=== PATIENT | male | born 1945 | race Caucasian/White ===

== ENCOUNTER 2016-06-05 20:11 | Inpatient (IN) | payer OTHER, MEDICARE ==
[~2016-06-05] VITALS: Ht 172.7 cm; Wt 79.4 kg
[~2016-06-05 20:11] MED LIST: AMOX-CLAV 875-1 EACH PO; ASPIRIN EC81 M1 PO; ATORVASTATIN CA40 M1 PO; FOLIC ACID1 M1 PO; GABAPENTIN600 M1 PO; LIPITOR80 M1 PO; MORPHINE SULFAT15 M3 PO; ONE DAILY MULT1 EAC2 PO; OXYCODONE HCL10 M2 PO; PLAQUENIL200 M1 PO; PREDNISONE10 M2 PO; PROTONIX40 M3 PO; VITAMIN B-1100 MG PO; ZOLOFT100 M1 PO
--- NOTE | 2016-06-05 20:19 | ED DYSPNEA/ASTHMA COMPLAINT ---
History of Present Illness General Chief Complaint: Dyspnea (COPD, CHF, Other) Stated Complaint: BIBA, SOB Source: patient Exam Limitations: no limitations Vital Signs & Intake/Output Vital Signs & Intake/Output Vital Signs Date Time Temp Pulse Resp B/P Pulse O2 O2 Flow FiO2 Ox Delivery Rate 06/05 2143 98.9 85 18 142/70 97 Room Air 06/05 2142 84 142/70 06/05 2050 100 Nasal 2.0L Cannula 06/05 2033 98.4 71 18 148/71 100 Nasal 2.0L Cannula Allergies Coded Allergies: No Known Allergies (01/27/16) Reconcile Medications Aspirin (Ecotrin*) 81 MG TABLET.DR 1 TAB PO DAILY HEART/BLOOD (Reported) Atorvastatin Calcium (Lipitor) 80 MG TABLET 1 TAB PO DAILY CHOLESTEROL ( Reported) Folic Acid 1 MG TABLET 1 MG PO DAILY SUPPLEMENT Gabapentin 600 MG TABLET 1 TAB PO 4 TIMES/DAY PAIN CONTROL (Reported) Hydroxychlorquine (Plaquenil) 200 MG TABLET 1 TAB PO BID ARTHRITIS (Reported) Morphine Sulfate (Morphine Sulfate ER) 15 MG TABLET.ER 1 TAB PO TID PAIN ( Reported) Multivitamin (One Daily Multivitamin) 1 EACH TABLET 1 TAB PO DAILY SUPPLEMENT Oxycodone HCl 10 MG TABLET 1 TAB PO 4 TIMES/DAY PAIN (Reported) Pantoprazole Sodium (Protonix) 40 MG TABLET.DR 1 TAB PO DAILY GI (Reported) Prednisone 10 MG TABLET 1 TAB PO DAILY STEROID (Reported) Sertraline HCl (Zoloft) 100 MG TABLET 1 TAB PO DAILY MENTAL HEALTH (Reported) Triage Note: PT BIBA FROM WALK IN C/O INCREASED SOB AND BILAT 2+ PITTING EDEMA. PER EMS 76% ON RA. PT PUT ON 2L O2 AND SATTING 100% HERE [place]ONA ARRIVAL. HX: TRIPAL BYPASS. Triage Nurses Notes Reviewed? yes Onset: Gradual Duration: day(s): Timing: recent history Severity: moderate Activities at Onset: none Prior Episodes/Possible Cause: no prior episodes Modifying Factors: Improves With: rest. Worsens With: movement. Associated Symptoms: edema, weakness HPI: 70-year-old gentleman history of coronary artery disease status post CABG 10 years ago, presents with one-week history of progressive dyspnea. He states that when he moves minimally he becomes short of breath. He notes that he feels with minimal exertion. "I walk and I can't catch my breath." Lower extremities have had increasing swelling. He presented to a walk-in center this evening. His O2 saturation was in the mid 70s. His oxygen saturated corrected to the low 90s with 2 L nasal cannula. He notes no chest pain fever chills cough wheezing or sputum. Past History Travel History Traveled to [place] past 21 day No Medical History Any Pertinent Medical History? see below for history Neurological: NONE EENT: NONE Cardiovascular: CAD, hypertension Respiratory: NONE Gastrointestinal: NONE Hepatic: NONE Renal: nephrolithiasis Musculoskeletal: chronic back pain, osteoarthritis Psychiatric: depression Endocrine: PARTIAL THYROIDECTOMY Blood Disorders: NONE Cancer(s): prostate cancer DIRECTOR OF INFECTION PREVENTION/Reproductive: NONE History of MRSA: No History of VRE: No History of CDIFF: No Influenza Vaccine: 02/21/09 Surgical History Surgical History: CABG, prostatectomy, BILAT HIP REPLACEMENT BILAT CATARACT SX PARTIAL THYROIDECTOMY APPENDECTOMY Psychosocial History Who do you live with Spouse Services at Home None What is your primary language Maori Family History Hx Contributory? No Review of Systems Review of Systems Constitutional: Reports: no symptoms. EENTM: Reports: no symptoms. Respiratory: Reports: no symptoms. Cardiovascular: Reports: no symptoms. GI: Reports: no symptoms. Genitourinary: Reports: no symptoms. Musculoskeletal: Reports: no symptoms. Skin: Reports: no symptoms. Neurological/Psychological: Reports: no symptoms. Hematologic/Endocrine: Reports: no symptoms. Immunologic/Allergic: Reports: no symptoms. All Other Systems: Reviewed and Negative Physical Exam Physical Exam General Appearance: well developed/nourished, mild distress Head: atraumatic, normal appearance Eyes: Bilateral: normal appearance. Ears, Nose, Throat: normal pharynx, normal ENT inspection Neck: normal inspection, supple, full range of motion Respiratory: DIMINISHED BREATH SOUNDS BILATERAL BASES Cardiovascular: regular rate/rhythm Gastrointestinal: normal bowel sounds, soft, non-tender, no organomegaly Rectal: normal exam, normal rectal tone, heme negative stool Extremities: normal inspection, COOL EXTREMITIES, 2+ PITTING EDEMA LOWER EXTREMITIES, SYMMETRICAL Neurologic/Psych: no motor/sensory deficits, awake, alert, oriented x 3 Skin: intact, normal color, COOL EXTREMITIES Core Measures ACS in differential dx? No Severe Sepsis Present: No Septic Shock Present: No Progress Differential Diagnosis: chf, vs pneumonia vs other. Plan of Care: Orders Procedure Date/time Status Nothing by Mouth 06/06 B Active Add-on Test (ER Only) 06/05 2142 Active Saline Lock 06/05 2135 Active Misc Message 06/05 2135 Active ED Holding Orders 06/05 2135 Active Admit to inpatient 06/05 2135 Active Vital Signs 06/05 2135 Active Code Status 06/05 2135 Active TYPE & SCREEN (NOT X-MATCH) 06/05 2132 Active Add-on Test (ER Only) 06/05 2129 Active LEUKOCYTE POOR (PACKED CELLS) 06/05 2129 Active RETICULOCYTE COUNT 06/05 2040 Active FOLIC ACID 06/05 2040 Active FERRITIN 06/05 2040 Active SERUM IRON 06/05 2040 Active VITAMIN B12 06/05 2040 Active TROPONIN LEVEL 06/05 2018 Active PARTIAL THROMBOPLASTIN TIME 06/05 2018 Complete PROTHROMBIN TIME 06/05 2018 Complete D-DIMER 06/05 2018 Complete COMPREHENSIVE METABOLIC PANEL 06/05 2018 Active CBC WITHOUT DIFFERENTIAL 06/05 2018 Active B-TYPE NATRIURETIC PEP (BNP) 06/05 2018 Active EKG 06/05 2011 Active Laboratory Tests 06/05/162040: Anion Gap 9, Estimated GFR > 60, BUN/Creatinine Ratio 18.6, Glucose 85, Calcium 8.8, Iron Pending, Ferritin Pending, Total Bilirubin 0.5, AST 22, ALT 41, Alkaline Phosphatase 97, Troponin I 0.03, Xdx-R-Tvnyvyippeo Pept 4120 H, Total Protein 6.1 L, Albumin 3.3 L, Globulin 2.8, Albumin/Globulin Ratio 1.2, Vitamin B12 Pending, Folate Pending, PT 11.3, INR 1.08, APTT 34, D-Dimer < 200, CBC w Diff MAN DIFF ORDERED, RBC 2.50 L, MCV 70.9 L, MCH 21.4 L, RDW 21.7 H, MPV 7.7, Segmented Neutrophils 82 H, Lymphocytes 11 L, Monocytes 6, Basophils 1, Platelet Estimate ADEQUATE, Hypochromic-Microcytic 2+, Poikilocytosis 1+, Anisocytosis 1+, Microcytic Cells 2+, Ovalocytes FEW, Stomatocytes FEW, PUBS MCHC 30.2 L, Retic Count Pending Diagnostic Imaging: Viewed by Me: Radiology Read. Discussed w/RAD: Radiology Read. CXR Impression: atelectasis vs evolving pneuomonia... full report below. Initial ED EKG: normal axis, normal intervals, normal p-waves, normal QRS complex, normal sinus rhythm Comments: PATIENT: LENNOX MCINTOSH PRESENT AGE: 70 PATIENT ACCOUNT NO: [id number] : 46 LOCATION: [facility] ORDERING PHYSICIAN: DENISE SINGH MD SERVICE DATE: 06/05/16 EXAM TYPE: RAD - XRY-PORTABLE CHEST XRAY EXAMINATION: XR PORTABLE CHEST CLINICAL INFORMATION: Dyspnea and hypoxia COMPARISON: Multiple chest x-rays most recent prior dated 01/28/2016 TECHNIQUE: Portable AP view of the chest was obtained. FINDINGS: Status post median sternotomy and CABG. Small right pleural effusion. Patchy airspace opacity noted in the right base suspicious for evolving infiltrate or atelectasis. IMPRESSION: Small right effusion with associated right basilar infiltrate or atelectasis. Findings may represent evolving pneumonia in the appropriate clinical setting. DICTATED BY: RETA FUENTES MD DATE/TIME DICTATED:06/05/162041 SHIPPING AND RECEIVING COORDINATOR:MILENA DATE/TIME TRANSCRIBED:06/05/162041 CONFIDENTIAL, DO NOT COPY WITHOUT APPROPRIATE AUTHORIZATION. <Electronically signed in Other Vendor System> SIGNED BY: RETA FUENTES MD 06/05/162045 Departure Departure Disposition: HOME OR SELF CARE Condition: Stable Clinical Impression Primary Impression: Symptomatic anemia Referrals: SHORTY HANSON,NAWAF Benítez (PCP/Family) Departure Forms: Customer Survey General Discharge Information Admission Note Spoke With: CHRIS GAN MDCindy Documentation of Exam: Documentation of any treatments & extenuating circumstances including Concerns Regarding Discharge (functional status, medication knowledge or non-compliance, living conditions, etc.) that warrant an admission rather than observation: pt with coronary artery disease, now with hct 17.7, likely subacute. He is not orthostatic, and otherwise hemodynamically stable. Given his significant underlying risk factors, and hct <21, he merits blood transfusion, follow hct, consult gi, consider cards consult.... "Atelectasis vs infiltrate" on cxr is likely atelectasis as he has no fever, chills, sputum. His wbc count is normal. Critical Care Note Critical Care Note Critical Care Time: 30-74 min
--- NOTE | 2016-06-05 20:46 | RADIOLOGY REPORT ---
EXAMINATION: XR PORTABLE CHEST CLINICAL INFORMATION: Dyspnea and hypoxia COMPARISON: Multiple chest x-rays most recent prior dated 01/28/2016 TECHNIQUE: Portable AP view of the chest was obtained. FINDINGS: Status post median sternotomy and CABG. Small right pleural effusion. Patchy airspace opacity noted in the right base suspicious for evolving infiltrate or atelectasis. IMPRESSION: Small right effusion with associated right basilar infiltrate or atelectasis. Findings may represent evolving pneumonia in the appropriate clinical setting.
[2016-06-05 20:47] LABS: MEAN CORPUSCULAR HGB 21.4 PG (27.0-31.0); MEAN CORPUSCULAR HGB CONC 30.2 G/DL (33.0-37.0); MEAN CORPUSCULAR VOLUME 70.9 FL (80.0-94.0); MEAN PLATELET VOLUME 7.7 FL (7.4-10.4); PLATELET COUNT 350 /CUMM (130-400); RBC DISTRIBUTION WIDTH 21.7 % (11.5-14.5); WHITE BLOOD CELL COUNT 6.1 /CUMM (4.8-10.8)
[2016-06-05 21:01] LABS: PT 11.3 SEC (9.4-12.5); PTT 34 SEC (25-37)
[2016-06-05 21:09] LABS: HEMATOCRIT 17.7 % (42-52)
--- NOTE | 2016-06-05 22:50 | Admission Certification ---
Admission Certification Certification Statement - As attending physician, I certify that at the time of - admission, based on clinical presentation, severity of - symptoms, need for further diagnostic testing and - therapeutic interventions, and risk of adverse outcomes - without in-hospital treatment, in my clinical assessment, - this patient requires an acute hospital stay for a minimum - of two nights or longer. I have also considered psychsocial - factors such as support system, advanced age, financial - issues, cognitive issues, and failed out-patient treatments, - past re-admission history, safety of patient, and lack of - compliance as applicable. Specific rationale supporting this admission is: Acute on chronic anemia, Symptomatic anemia.
[2016-06-06 00:25] VITALS: BP 138/70
[2016-06-06 00:43] VITALS: BP 124/68
[2016-06-06 01:37] VITALS: BP 136/60
--- NOTE | 2016-06-06 01:43 | History & Physical ---
AGUS HANSON,[facility] 06/06/16 0143: General Information and HPI MD Statement: I have seen and personally examined LENNOX MCINTOSH and documented this H&P. The patient is a 70 year old M who presented with a patient stated chief complaint of [shortness of breath]. Source of Information: patient Exam Limitations: no limitations History of Present Illness: Patient is a 70-year-old male is BIBA due to worsening shortness of breath and bilateral lower extremity edema. Patient reports that since about a week ago he has been experiencing shortness of breath with minimal exertion. The patient was able to exercise everyday until 2 weeks ago when he had an episode of fever chills and sweats which resolved within a day. However since about a week ago he has noticed that he has not been able to perform daily activities because of the worsening shortness of breath, palpitation and leg swelling. Denies chest pain, headache, lightheadedness or dizziness. Also currently denies fever or chills. No abdominal pain, changes in the stool or bowel movements. No coughing or sore throat. Denies loss of appetite, eats mostly rice and vegetables, denies changes in the urine color or any dysuria. Patient used to be in heavy drinker but now drinks only beer every 2 days. His past medical history significant for a prostatic cancer that was surgically removed, patient is unable to recall when it was diagnosed and he has not been following up for the status of this persistent cancer after surgery. He also has a remote history of thyroid malignancy on the left side which was removed. Allergies/Medications Allergies: Coded Allergies: No Known Allergies (01/27/16) Home Med list Aspirin (Ecotrin*) 81 MG TABLET.DR 1 TAB PO DAILY HEART/BLOOD (Reported) Atorvastatin Calcium (Lipitor) 80 MG TABLET 1 TAB PO DAILY CHOLESTEROL ( Reported) Folic Acid 1 MG TABLET 1 MG PO DAILY SUPPLEMENT Gabapentin 600 MG TABLET 1 TAB PO 4 TIMES/DAY PAIN CONTROL (Reported) Hydroxychlorquine (Plaquenil) 200 MG TABLET 1 TAB PO BID ARTHRITIS (Reported) Morphine Sulfate (Morphine Sulfate ER) 15 MG TABLET.ER 1 TAB PO TID PAIN ( Reported) Multivitamin (One Daily Multivitamin) 1 EACH TABLET 1 TAB PO DAILY SUPPLEMENT Oxycodone HCl 10 MG TABLET 1 TAB PO 4 TIMES/DAY PAIN (Reported) Pantoprazole Sodium (Protonix) 40 MG TABLET.DR 1 TAB PO DAILY GI (Reported) Prednisone 10 MG TABLET 1 TAB PO DAILY STEROID (Reported) Sertraline HCl (Zoloft) 100 MG TABLET 1 TAB PO DAILY MENTAL HEALTH (Reported) Past History Travel History Traveled to [place] past 21 day No Medical History Blood Transfusion Hx: Yes Neurological: NONE EENT: NONE Cardiovascular: CAD, hypertension Respiratory: NONE Gastrointestinal: NONE Hepatic: NONE Renal: nephrolithiasis Musculoskeletal: chronic back pain, osteoarthritis Psychiatric: depression Endocrine: PARTIAL THYROIDECTOMY Blood Disorders: anemia, B12 deficiency Cancer(s): prostate cancer STAGING TECHNICIAN/Reproductive: NONE History of MRSA: No History of VRE: No History of CDIFF: No Isolation History: Standard Influenza Vaccine: 02/22/16 Surgical History Surgical History: CABG, prostatectomy, BILAT HIP REPLACEMENT BILAT CATARACT SX PARTIAL THYROIDECTOMY APPENDECTOMY Past Family/Social History Psychosocial History Where do you live? Home Who Do You Live With? spouse, child Services at Home: None Primary Language: Malawian Smoking Status: Former Smoker (quit >30 years ago) ETOH Use: occasional use Illicit Drug Use: marijuana, smokes, occasionally Functional Ability ADLs Independent: dressing, eating, toileting, bathing. Ambulation: independent, cane IADLs Independent: shopping, housework, finances, food prep, telephone, transportation , medication admin. 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 Denies: chills, fever. EENTM: Reports: no symptoms. Cardiovascular: Reports: peripheral edema. Denies: chest pain, palpitations. Respiratory: Reports: short of breath. Denies: cough, hemoptysis, sputum production. GI: Denies: abdominal pain. Genitourinary: Denies: dysuria, frequency, hematuria, hesitation, nocturia. Musculoskeletal: Denies: back pain, gout, joint pain, joint swelling, muscle pain, muscle stiffness. Skin: Reports: lesions. Denies: erythema, jaundice. Neurological/Psychological: Reports: weakness. Hematologic/Endocrine: Denies: bruising, bleeding, polyuria, polydipsia. Exam & Diagnostic Data Last 24 Hrs of Vital Signs/I&O Vital Signs Date Time Temp Pulse Resp B/P Pulse O2 O2 Flow FiO2 Ox Delivery Rate 06/06 0137 98.2 72 19 136/60 95 Room Air 06/06 0115 Room Air 06/06 0043 98.1 80 18 124/68 94 Room Air 06/06 0025 98.9 90 20 138/70 97 Room Air 06/05 2246 96.7 73 18 119/62 98 Room Air 06/054 98.9 85 18 142/70 97 Room Air 06/05 2143 84 142/70 06/05 2050 100 Nasal 2.0L Cannula 06/05 2033 98.4 71 18 148/71 100 Nasal 2.0L Cannula Intake & Output 06/06 0800 06/06 0000 06/05 1600 Intake Total 0 Output Total 800 400 Balance -800 -400 Intake, Oral 0 Output, Urine 800 400 Patient 79.379 kg 79.379 kg Weight Physical Exam General Appearance Alert, Oriented X3, Cooperative, No Acute Distress Skin several excoriated lesions on the upper trunk and extremities HEENT Atraumatic, PERRLA, EOMI, pale mucosa Neck Supple, No JVD Cardiovascular Regular Rate, Normal S1, Normal S2, 1/6 systolic murmur heard at apex Lungs Clear to Auscultation, Normal Air Movement Abdomen Soft, No Tenderness, increased bowel sounds, slightly distended, no shifting dullness Neurological Normal Speech, Strength at 5/5 X4 Ext, Normal Tone, Sensation Intact, Cranial Nerves 3-12 NL Extremities 2+ pitting edema Vascular Normal Pulses, Pulses Symmetrical Last 24 Hrs of Labs/Antwan: Laboratory Tests 06/06/16 0043: Urine Color STRAW, Urine Clarity CLEAR, Urine pH 6.5, Ur Specific Babcock 1.010, Urine Protein NEG, Urine Ketones NEG, Urine Nitrite NEG, Urine Bilirubin NEG, Urine Urobilinogen 0.2, Ur Leukocyte Esterase NEG, Ur Microscopic EXAM NOT REQUIRED, Urine Hemoglobin NEG, Urine Glucose NEG 06/05/162040: Anion Gap 9, Estimated GFR > 60, BUN/Creatinine Ratio 18.6, Glucose 85, Calcium 8.8, Iron 15 L, TIBC 388, Ferritin 7.5 L, Total Bilirubin 0.5, AST 22, ALT 41, Alkaline Phosphatase 97, Lactate Dehydrogenase 413, Troponin I 0.03, Pro-B- Natriuretic Pept 4120 H, Total Protein 6.1 L, Albumin 3.3 L, Globulin 2.8, Albumin/Globulin Ratio 1.2, Vitamin B12 896, Folate > 20.0 H, TSH 2.050, Free T4 1.07, PT 11.3, INR 1.08, APTT 34, D-Dimer < 200, CBC w Diff MAN DIFF ORDERED, RBC 2.50 L, MCV 70.9 L, MCH 21.4 L, RDW 21.7 H, MPV 7.7, Segmented Neutrophils 82 H, Lymphocytes 11 L, Monocytes 6, Basophils 1, Platelet Estimate ADEQUATE, Hypochromic-Microcytic 2+, Poikilocytosis 1+, Anisocytosis 1+ , Microcytic Cells 2+, Ovalocytes FEW, Stomatocytes FEW, PUBS MCHC 30.2 L, Retic Count 2.01 H, Serum Alcohol < 10.0 Assessment/Plan Assessment: Patient is a 70-year-old male with PMH of CAD A/P CABG, hypertension, nephrolithiasis, chronic back pain, osteoarthritis, left thyroidectomy, prostate cancer S/P resection, depression, vitamin B12 deficiency, anemia of unknown cause has come to the ED with increased shortness of breath and generalized weakness for about a week. Workup in the ED revealed stable vital signs, H&H of 5.4/17.7, MCV 70.9, WBC of 6.1, platelet count 350. Reticulocyte count of 2.01% CXR shows small right effusion with right basilar infiltrate or atelectasis. Problem list and plan: Microcytic hypochromic anemia Acute on Chronic (patient had a low Hb level based on his previous records in January 2016). Patient has symptomatic anemia including shortness of breath and palpitation with minimal exertion. Denies chest pain. Iron studies shows low iron and ferritin levels. Most likely etiology include: Iron deficiency anemia in the setting of chronic blood loss from sources such as GI. 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 Thalassemia, sideroblastic anemia, anemia of chronic disease (the latter unlikely has to ferritin level is low). * IV access IV fluids * Type & screen and blood transfusion * Also check Lead level in serum * Peripheral blood smear for thalassemia, sideroblastic anemia * Guaiac all stools, consider GI consult if evidence of GI bleed * hematology consult * avoid aspirin and NSAIDs Hypoxic respiratory failure, rule out CHF Shortness of breath, palpitation, lower extremity edema, as well as history of CAD, CXR indicating effusion. ProBNP elevated. Possible etiologies: Acute decompensated heart failure in the setting of CAD and severe anemia. PNA unlikely (absence of cough, fever, leukocytosis) * serial EKG and troponins to rule out ACS * ECHO * cardiology consult * TRC nebs, incentive spirometry Regular diet DVT prophylaxis with Alps Full code As Ranked By This Provider Problem List: 1. H/O prostatectomy 2. Symptomatic anemia 3. Cirrhosis of liver 4. Anemia 5. Gait instability Core Measures/Miscellaneous Acute Coronary Syndrome ACS Diagnosis: No Cerebrovascular Accident CVA/TIA Diagnosis: No Congestive Heart Failure CHF Diagnosis: No Venous Thromboembolism VTE Risk Factors: Acute medical illness, Age > 40 VTE Prophylaxis Ordered Inpt: Mechanical (ALPS/TEDS) No Mech VTE prophylaxis d/t: No contraindications No VTE Pharm Prophylaxis d/t: Medical contraindication (blood loss) VTE Diagnosis: No VTE Type: NONE VTE Confirmed by (Test): NONE Severe Sepsis Severe Sepsis Present: No Septic Shock Septic Shock Present: No Miscellaneous Documentation Attending Case Discussed With: SANTI GAN MD Primary Care Physician: NAWAF ORO MD Patient sees these Specialists Dr. Hernandez, cardiology Dr. Mitchell, pain management Level of Patient Care: General Medicine KRISHNA GAN MD 06/06/16 0212: Attending MD Review Statement Attending Statement Attending MD Statement: examined this patient, discuss w/resident/PA/CREDENTIALING COORDINATOR, agreed w/resident/PA/CREDENTIALING COORDINATOR Attending Assessment/Plan: 70 yo M with h/o CAD s/p CABG, prostate cancer s/p protatectomy, HTN, RA, chronic pain, alcohol dependence, chronic anemia, B12 deficiency and neuropathy, is here with symptomatic anemia (exertional dyspnea, palpitations and LE edema over past 1 week). He went to an Urgent care today and was noted to have O2 sats in the 70's that improved with oxygen. Denies melena, BRBPR, hematemesis or hematuria. He has not taken his regular 'baby aspirin' for the past 1 month. He denies any other NSAID use. Last EGD/colonoscopy (2008) - hiatal hernia, no varices, diverticulosis and polyps (tubular/hyperplastic). He did not have a follow up colonoscopy. He reports being admitted to [facility] 2 yrs ago and being transfused blood products but does not know why. He denies any bleeding of clotting disorders. He continues to consume alcohol almost every alternate day. VSS. Exam: pallor++, no JVD, Chest b/l clear, Heart S1S2 regular, systolic murmur+, Abd soft, NT. LE: b/l 1+ pitting edema. Labs:H/H 5.4/17.7 (8.1/26.25 Jan 2016), microcytosis with elevated RDW, INR normal, trop neg, proBNP elevated. UA neg. S. Alcohol < 10. CXR small right effusion with right basilar infiltrate or atelectasis. EKG: SR. Rectal exam: guaiac neg brown stool. Orthostats negative. 1. Acute on chronic anemia, symptomatic anemia. Patient received lasix 40 mg in ER, and diuresed about 1.2 L. GM admit, guaiac all stools, check iron studies, B12, folic acid, TSH, free T4. Hemolysis work up. Transfuse 2 units PRBC. Keep Hb > 8.0. Avoid NSAIDS. GI and hematology consult in AM. Hold aspirin. 2. Hypoxia with ?heart failure in the setting of anemia. He does have slightly elevated proBNP, CXR shows right effusion. Will obtain an Echo, repeat EKG and troponin to rule out ACS. Cardiology consult. TRC nebs, incentive spirometry. DVT ppx Alps. Full code. PRIYA SIEGEL MD 06/06/16 0351: Resident Review Statement Resident Statement: examined this patient, discussed with internship coordinator, agreed with internship coordinator Other Findings: 70-year-old male with past medical history of coronary artery disease status post CABG, nephrolithiasis, chronic back pain, prostate cancer, partial thyroidectomy, depression, alcohol abuse presents from home complaining of increased shortness of breath and palpitations for the past 1 week. Stating that even moving in bed would make him become increasingly short of breath. He denies chest pain, dizziness, nausea, vomiting, abdominal pain, constipation, or diarrhea, denies any blood in stools, denies vomiting or coughing up blood. Provides a history of chronic anemia has been worked up at [facility] in the past. According to our records he did have an endoscopy in 2008, he may have had another one at a later date. He is severely anemic with an H&H of 5.4/17.7, MCV of 70.9, iron of 15, ferritin of 7.5, vitamin B12 896, folate 20. As his vitals remained stable, is appears to be a chronic ongoing anemia. We will admit him to general medicine floor, and transfuse him packed RBCs. recheck his CBC after receiving 2 units. We will check for signs of hemolysis looking at his LDH and haptoglobin levels. We will guaiac all stools.
[2016-06-06 07:09] VITALS: BP 94/48
[2016-06-06 09:03] LABS: ABSOLUTE BASOPHIL COUNT 0 /CUMM (0.0-0.2); ABSOLUTE EOSINOPHIL COUNT 0 /CUMM (0.0-0.7); ABSOLUTE GRANULOCYTE CT 3.8 /CUMM (1.4-6.5); ABSOLUTE LYMPH COUNT 1.4 /CUMM (1.2-3.4); ABSOLUTE MONOCYTE COUNT 0.9 /CUMM (0.10-0.60); BASOPHIL % 0.5 % (0.0-2.0); EOSINOPHIL % 0.4 % (0-5); GRANULOCYTE % 62.8 % (42.2-75.2); HEMATOCRIT 21.2 % (42-52); MEAN PLATELET VOLUME 8.6 FL (7.4-10.4); PLATELET COUNT 300 /CUMM (130-400); RBC DISTRIBUTION WIDTH 22.6 % (11.5-14.5); RED BLOOD CELL CT 2.84 /CUMM (4.70-6.10); WHITE BLOOD CELL COUNT 6.1 /CUMM (4.8-10.8)
[2016-06-06 09:10] LABS: MEAN CORPUSCULAR HGB 23.9 PG (27.0-31.0); MEAN CORPUSCULAR VOLUME 74.7 FL (80.0-94.0)
[2016-06-06 12:15] VITALS: BP 110/60
[2016-06-06 14:25] VITALS: BP 104/68
--- NOTE | 2016-06-06 15:47 | PN- Att Addend ---
Attending MD Review Statement Attending Statement Attending MD Statement: examined this patient, discuss w/resident/PA/FIELD SERVICES MANAGER, agreed w/resident/PA/FIELD SERVICES MANAGER, reviewed EMR data (avail) Attending Assessment/Plan: Laboratory Tests 06/06 06/06 06/06 06/06 9503 [id number] 0635 0605 Chemistry Troponin I (<0.11 ng/ml) 0.01 0.03 Hematology CBC w Diff Pending NO MAN DIFF REQ WBC (4.8 - 10.8 /CUMM) Pending 6.1 RBC (4.70 - 6.10 /CUMM) Pending 2.84 L Hgb (14.0 - 18.0 G/DL) Pending 6.8 *L Hct (42 - 52 %) Pending 21.2 L MCV (80.0 - 94.0 FL) Pending 74.7 L MCH (27.0 - 31.0 PG) Pending 23.9 L RDW (11.5 - 14.5 %) Pending 22.6 H Plt Count (130 - 400 /CUMM) Pending 300 MPV (7.4 - 10.4 FL) Pending 8.6 Gran % (42.2 - 75.2 %) 62.8 Lymphocytes % (20.5 - 51.1 %) 22.0 Monocytes % (1.7 - 9.3 %) 14.3 H Eosinophils % (0 - 5 %) 0.4 Basophils % (0.0 - 2.0 %) 0.5 Absolute Granulocytes (1.4 - 6.5 /CUMM) 3.8 Absolute Lymphocytes (1.2 - 3.4 /CUMM) 1.4 Absolute Monocytes (0.10 - 0.60 /CUMM) 0.9 H Absolute Eosinophils (0.0 - 0.7 /CUMM) 0 Absolute Basophils (0.0 - 0.2 /CUMM) 0 PUBS MCHC (33.0 - 37.0 G/DL) Pending 32.0 L 06/06 06/06 0600 0043 Toxicology Lead Sample Type Pending Lead Pending Urines Urine Color (YEL,AMB,STR) STRAW Urine Clarity (CLEAR) CLEAR Urine pH (5.0 - 8.0) 6.5 Ur Specific [place] (1.001 - 1.035) 1.010 Urine Protein (NEG,<30 MG/DL) NEG Urine Ketones (NEG) NEG Urine Nitrite (NEG) NEG Urine Bilirubin (NEG) NEG Urine Urobilinogen (0.1 - 1.0 EU/dl) 0.2 Ur Leukocyte Esterase (NEG) NEG Ur Microscopic EXAM NOT REQUIRED Urine Hemoglobin (NEG) NEG Urine Glucose (N MG/DL) NEG 06/05 2040 Chemistry Sodium (137 - 145 mmol/L) 138 Potassium (3.5 - 5.1 mmol/L) 4.6 Chloride (98 - 107 mmol/L) 101 Carbon Dioxide (22 - 30 mmol/L) 27 Anion Gap (5 - 16) 9 BUN (9 - 20 mg/dL) 13 Creatinine (0.7 - 1.2 mg/dL) 0.7 Estimated GFR (>60 ml/min) > 60 BUN/Creatinine Ratio (7 - 25 %) 18.6 Glucose (65 - 99 mg/dL) 85 Calcium (8.4 - 10.2 mg/dL) 8.8 Iron (49 - 181 ug/dL) 15 L TIBC (261 - 462 ug/dL) 388 Ferritin (17.9 - 464 ng/mL) 7.5 L Total Bilirubin (0.2 - 1.3 mg/dL) 0.5 AST (17 - 59 U/L) 22 ALT (21 - 72 U/L) 41 Alkaline Phosphatase (< 127 U/L) 97 Lactate Dehydrogenase (313 - 618 U/L) 413 Troponin I (<0.11 ng/ml) 0.03 Vxc-Q-Chpusuqxftb Pept (<125 pg/mL) 4120 H Total Protein (6.3 - 8.2 g/dL) 6.1 L Albumin (3.5 - 5.0 g/dL) 3.3 L Globulin (1.9 - 4.2 gm/dL) 2.8 Albumin/Globulin Ratio (1.1 - 2.2 %) 1.2 Vitamin B12 (239 - 931 pg/mL) 896 Folate (2.76 - 20.0 ng/mL) > 20.0 H TSH (0.270 - 4.200 uIU/mL) 2.050 Free T4 (0.78 - 2.44 ng/dL) 1.07 Coagulation PT (9.4 - 12.5 SEC) 11.3 INR (0.90 - 1.17) 1.08 APTT (25 - 37 SEC) 34 D-Dimer (70 - 232 ng/ml) < 200 Hematology CBC w Diff MAN DIFF ORDERED WBC (4.8 - 10.8 /CUMM) 6.1 RBC (4.70 - 6.10 /CUMM) 2.50 L Hgb (14.0 - 18.0 G/DL) 5.4 *L Hct (42 - 52 %) 17.7 *L MCV (80.0 - 94.0 FL) 70.9 L MCH (27.0 - 31.0 PG) 21.4 L RDW (11.5 - 14.5 %) 21.7 H Plt Count (130 - 400 /CUMM) 350 MPV (7.4 - 10.4 FL) 7.7 Segmented Neutrophils (42.2 - 75.2 %) 82 H Lymphocytes (20.5 - 51.1 %) 11 L Monocytes (1.7 - 9.3 %) 6 Basophils (0.0 - 2.0 %) 1 Platelet Estimate (ADEQUATE) ADEQUATE Hypochromic-Microcytic 2+ Poikilocytosis 1+ Anisocytosis 1+ Microcytic Cells 2+ Ovalocytes FEW Stomatocytes FEW PUBS MCHC (33.0 - 37.0 G/DL) 30.2 L Retic Count (0.5 - 2.0 %) 2.01 H Toxicology Serum Alcohol (<10 MG/DL) < 10.0 Laboratory Tests 06/06 06/06 06/06 06/06 1533 1155 0635 0605 Chemistry Troponin I (<0.11 ng/ml) 0.01 0.03 Hematology CBC w Diff Pending NO MAN DIFF REQ WBC (4.8 - 10.8 /CUMM) Pending 6.1 RBC (4.70 - 6.10 /CUMM) Pending 2.84 L Hgb (14.0 - 18.0 G/DL) Pending 6.8 *L Hct (42 - 52 %) Pending 21.2 L MCV (80.0 - 94.0 FL) Pending 74.7 L MCH (27.0 - 31.0 PG) Pending 23.9 L RDW (11.5 - 14.5 %) Pending 22.6 H Plt Count (130 - 400 /CUMM) Pending 300 MPV (7.4 - 10.4 FL) Pending 8.6 Gran % (42.2 - 75.2 %) 62.8 Lymphocytes % (20.5 - 51.1 %) 22.0 Monocytes % (1.7 - 9.3 %) 14.3 H Eosinophils % (0 - 5 %) 0.4 Basophils % (0.0 - 2.0 %) 0.5 Absolute Granulocytes (1.4 - 6.5 /CUMM) 3.8 Absolute Lymphocytes (1.2 - 3.4 /CUMM) 1.4 Absolute Monocytes (0.10 - 0.60 /CUMM) 0.9 H Absolute Eosinophils (0.0 - 0.7 /CUMM) 0 Absolute Basophils (0.0 - 0.2 /CUMM) 0 PUBS MCHC (33.0 - 37.0 G/DL) Pending 32.0 L 06/06 06/06 0600 0043 Toxicology Lead Sample Type Pending Lead Pending Urines Urine Color (YEL,AMB,STR) STRAW Urine Clarity (CLEAR) CLEAR Urine pH (5.0 - 8.0) 6.5 Ur Specific [place] (1.001 - 1.035) 1.010 Urine Protein (NEG,<30 MG/DL) NEG Urine Ketones (NEG) NEG Urine Nitrite (NEG) NEG Urine Bilirubin (NEG) NEG Urine Urobilinogen (0.1 - 1.0 EU/dl) 0.2 Ur Leukocyte Esterase (NEG) NEG Ur Microscopic EXAM NOT REQUIRED Urine Hemoglobin (NEG) NEG Urine Glucose (N MG/DL) NEG 06/05 2040 Chemistry Sodium (137 - 145 mmol/L) 138 Potassium (3.5 - 5.1 mmol/L) 4.6 Chloride (98 - 107 mmol/L) 101 Carbon Dioxide (22 - 30 mmol/L) 27 Anion Gap (5 - 16) 9 BUN (9 - 20 mg/dL) 13 Creatinine (0.7 - 1.2 mg/dL) 0.7 Estimated GFR (>60 ml/min) > 60 BUN/Creatinine Ratio (7 - 25 %) 18.6 Glucose (65 - 99 mg/dL) 85 Calcium (8.4 - 10.2 mg/dL) 8.8 Iron (49 - 181 ug/dL) 15 L TIBC (261 - 462 ug/dL) 388 Ferritin (17.9 - 464 ng/mL) 7.5 L Total Bilirubin (0.2 - 1.3 mg/dL) 0.5 AST (17 - 59 U/L) 22 ALT (21 - 72 U/L) 41 Alkaline Phosphatase (< 127 U/L) 97 Lactate Dehydrogenase (313 - 618 U/L) 413 Troponin I (<0.11 ng/ml) 0.03 Sxr-P-Eazsfftzjct Pept (<125 pg/mL) 4120 H Total Protein (6.3 - 8.2 g/dL) 6.1 L Albumin (3.5 - 5.0 g/dL) 3.3 L Globulin (1.9 - 4.2 gm/dL) 2.8 Albumin/Globulin Ratio (1.1 - 2.2 %) 1.2 Vitamin B12 (239 - 931 pg/mL) 896 Folate (2.76 - 20.0 ng/mL) > 20.0 H TSH (0.270 - 4.200 uIU/mL) 2.050 Free T4 (0.78 - 2.44 ng/dL) 1.07 Coagulation PT (9.4 - 12.5 SEC) 11.3 INR (0.90 - 1.17) 1.08 APTT (25 - 37 SEC) 34 D-Dimer (70 - 232 ng/ml) < 200 Hematology CBC w Diff MAN DIFF ORDERED WBC (4.8 - 10.8 /CUMM) 6.1 RBC (4.70 - 6.10 /CUMM) 2.50 L Hgb (14.0 - 18.0 G/DL) 5.4 *L Hct (42 - 52 %) 17.7 *L MCV (80.0 - 94.0 FL) 70.9 L MCH (27.0 - 31.0 PG) 21.4 L RDW (11.5 - 14.5 %) 21.7 H Plt Count (130 - 400 /CUMM) 350 MPV (7.4 - 10.4 FL) 7.7 Segmented Neutrophils (42.2 - 75.2 %) 82 H Lymphocytes (20.5 - 51.1 %) 11 L Monocytes (1.7 - 9.3 %) 6 Basophils (0.0 - 2.0 %) 1 Platelet Estimate (ADEQUATE) ADEQUATE Hypochromic-Microcytic 2+ Poikilocytosis 1+ Anisocytosis 1+ Microcytic Cells 2+ Ovalocytes FEW Stomatocytes FEW PUBS MCHC (33.0 - 37.0 G/DL) 30.2 L Retic Count (0.5 - 2.0 %) 2.01 H Toxicology Serum Alcohol (<10 MG/DL) < 10.0 Vital Signs Date Time Temp Pulse Resp B/P Pulse O2 O2 Flow FiO2 Ox Delivery Rate 06/06 1425 98.2 68 20 104/68 98 Room Air 06/06 1215 98.0 76 20 110/60 97 Room Air Intake & Output 06/06 1600 Intake Total 920 Output Total 450 Balance 470 Intake, IV 20 Intake, Oral 900 Number 0 Bowel Movements Output, Urine 450 70 yo M with h/o CAD s/p CABG, prostate cancer s/p protatectomy, HTN, RA, chronic pain, alcohol dependence who drinks few beers and emily per week, chronic anemia, B12 deficiency and neuropathy, is here with symptomatic anemia ( exertional dyspnea, palpitations and LE edema over past 1 week). He went to an Urgent care today and was noted to have O2 sats in the 70's that improved with oxygen. Pt found to be anemic with hb of 5.4 in ER and was given blood transfusion of 2 Units PRBC, repeat hb is 6.8 A/p- Acute symptomatic anemia requiring blood transfusion with low mcv and low serum iron and ferritin suggestive of iron def anemia. Started on iv protonix 40 q12h, GI consulted. monitor h/h q12h and transfuse as needed. d/w pt the care plan and improtance to quit drinking .
--- NOTE | 2016-06-06 16:13 | Cons- Gastroenterology ---
General Information and HPI Consulting Request Date of Consult: 06/06/16 (MD Chelsie/GASTROENTEROLOGY) Requested By: ELVIA HANSON,SANTI Reason for Consult: Anemia Source of Information: patient, old records History of Present Illness: 70-year-old male with a history of anemia. In 2008, EGD demonstrated a mixed hiatal hernia; duodenal biopsies were negative. Concurrent colonoscopy demonstrated diverticulosis, and a single subcentimeter adenoma. The patient has not had subsequent surveillance colonoscopy. The patient carries a diagnosis of B12 deficiency as well. He was admitted to [facility] approximately 2 years ago, details unavailable, and remembers receiving "blood filtration." (Possible plasmapheresis in the setting of a neurologic condition) . Most recently he was admitted to [facility] in January with a UTI; a macrocytic anemia was noted. The patient presents with shortness of breath, palpitation, weakness and lower extremity edema. He has been found to be severely anemic. He denies chest pain , dizziness, syncope, fever, chills. He also denies abdominal pain, indigestion , heartburn, nausea, alteration of bowel habits/constipation/diarrhea, melena, blood per rectum, hematuria, dysuria. He has been been poorly compliant with prescribed baby aspirin. He denies use of NSAIDs. His stool was Hemoccult negative in the emergency room. Pertinent past medical history includes prostatectomy (no radiation), thyroid cancer, coronary artery disease status post CABG, B12 deficiency. Family history is negative for GI malignancy, inflammatory bowel disease, celiac disease. Allergies/Medications Allergies: Coded Allergies: No Known Allergies (01/27/16) Home Med List: Aspirin (Ecotrin*) 81 MG TABLET.DR 1 TAB PO DAILY HEART/BLOOD (Reported) Atorvastatin Calcium (Lipitor) 80 MG TABLET 1 TAB PO DAILY CHOLESTEROL ( Reported) Folic Acid 1 MG TABLET 1 MG PO DAILY SUPPLEMENT Gabapentin 600 MG TABLET 1 TAB PO 4 TIMES/DAY PAIN CONTROL (Reported) Hydroxychlorquine (Plaquenil) 200 MG TABLET 1 TAB PO BID ARTHRITIS (Reported) Morphine Sulfate (Morphine Sulfate ER) 15 MG TABLET.ER 1 TAB PO TID PAIN ( Reported) Multivitamin (One Daily Multivitamin) 1 EACH TABLET 1 TAB PO DAILY SUPPLEMENT Oxycodone HCl 10 MG TABLET 1 TAB PO 4 TIMES/DAY PAIN (Reported) Pantoprazole Sodium (Protonix) 40 MG TABLET.DR 1 TAB PO DAILY GI (Reported) Prednisone 10 MG TABLET 1 TAB PO DAILY STEROID (Reported) Sertraline HCl (Zoloft) 100 MG TABLET 1 TAB PO DAILY MENTAL HEALTH (Reported) Current Medications: Current Medications Sig/Kim Start time Last Medication Dose Route Stop Time Status Admin Acetaminophen 650 MG Q6-PRN PRN 06/06 0215 AC PO Ceftriaxone Sodium 0 .STK-MED ONE 06/05 2359 DC .ROUTE Ferrous Sulfate 325 MG BID 06/06 1050 AC 06/06 PO 1306 Furosemide 0 .STK-MED ONE 06/05 204 DC IV Furosemide 40 MG ONCE ONE 06/05 2030 DC 06/05 IV 06/05 2030 204 Morphine Sulfate 2 MG Q6P PRN 06/06 0200 AC 06/06 IV 1422 Morphine Sulfate 15 MG ONCE ONE 06/05 2114 DC 06/05 PO 06/05 2115 214 Oxycodone HCl 10 MG 4 TIMES/DAY PRN 06/06 0830 AC 06/06 PO 1307 Oxycodone HCl 10 MG .STK-MED ONE 06/06 021 DC PO 06/06 0212 Oxycodone HCl 10 MG 4 TIMES/DAY PRN 06/06 0200 DC 06/06 PO 0217 Oxycodone HCl 10 MG ONCE ONE 06/05 2114 DC 06/05 PO 06/05 2115 214 Oxycodone HCl 0 .STK-MED ONE 06/05 2113 DC PO Pantoprazole Sodium 40 MG Q12 06/06 1049 AC 06/06 IV 1306 Pantoprazole Sodium 40 MG DAILY 06/06 0215 CAN IV Patient Medication 1 UNIT ONE NR 06/06 1100 DC Teaching ED 06/06 1130 Sertraline HCl 100 MG DAILY 06/06 1000 AC 06/06 PO 0831 Past History Travel History Traveled to [place] past 21 day No Medical History Blood Transfusion Hx: Yes Neurological: NONE EENT: NONE Cardiovascular: CAD, hypertension Respiratory: NONE Gastrointestinal: NONE Hepatic: NONE Renal: nephrolithiasis Musculoskeletal: chronic back pain, osteoarthritis Psychiatric: depression Endocrine: PARTIAL THYROIDECTOMY Blood Disorders: anemia, B12 deficiency Cancer(s): prostate cancer HOSPITALITY HOUSEKEEPER/Reproductive: NONE Surgical History Surgical History: CABG, prostatectomy, BILAT HIP REPLACEMENT BILAT CATARACT SX PARTIAL THYROIDECTOMY APPENDECTOMY Psychosocial History Where Do You Live? Home Who Do You Live With? spouse, child Services at Home: None Primary Language: Northern Irish Smoking Status: Former Smoker (quit >30 years ago) ETOH Use: occasional use Illicit Drug Use: marijuana, smokes, occasionally Functional Ability ADLs Independent: dressing, eating, toileting, bathing. Ambulation: independent, cane IADLs Independent: shopping, housework, finances, food prep, telephone, transportation , medication admin. 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 Denies: chills, diaphoresis, fever. EENTM: Denies: icterus, epistaxis. Cardiovascular: Reports: palpitations, peripheral edema. Denies: chest pain, syncope. Respiratory: Reports: short of breath. Denies: cough, hemoptysis. GI: Reports: see HPI. Genitourinary: Denies: dysuria, hematuria. Musculoskeletal: Denies: muscle stiffness, neck pain. Skin: Reports: lesions. Denies: jaundice, rash. Neurological/Psychological: Denies: cognitive dysfunction, headache. Hematologic/Endocrine: Reports: bruising. Denies: bleeding, polyuria, polydipsia. Exam & Diagnostic Data Vital Signs and I&O Vital Signs Date Time Temp Pulse Resp B/P Pulse O2 O2 Flow FiO2 Ox Delivery Rate 06/06 1425 98.2 68 20 104/68 98 Room Air 06/06 1215 98.0 76 20 110/60 97 Room Air 06/06 0709 98.1 83 18 94/48 95 Room Air 06/06 0137 98.2 72 19 136/60 95 Room Air 06/06 0115 Room Air 06/06 0043 98.1 80 18 124/68 94 Room Air 06/06 0025 98.9 90 20 138/70 97 Room Air 06/05 2246 96.7 73 18 119/62 98 Room Air 06/05 2144 98.9 85 18 142/70 97 Room Air 06/05 214 84 142/70 06/05 2050 100 Nasal 2.0L Cannula 06/05 2033 98.4 71 18 148/71 100 Nasal 2.0L Cannula Intake & Output 06/06 1600 06/06 0400 06/05 1600 06/05 0400 06/04 1600 06/04 0400 Intake Total 1620 0 Output Total 450 1200 Balance 1170 -1200 Intake, Blood 700 Product Intake, IV 20 Intake, Oral 900 0 Number 0 Bowel Movements Output, Urine 450 1200 Patient 175 lb Weight Physical Exam: Well-nourished white male, no apparent distress. Alert and oriented with normal cognition. Skin with numerous excoriations on chest and upper extremities. No spider telangiectasia's, palmar erythema, gynecomastia. No jaundice. Ecchymoses on forearms. No scleral icterus. No oropharyngeal lesion. Tongue normal. No thyromegaly, neck mass. No adenopathy. Sternotomy scar well healed. Heart regular rhythm without murmur. Lungs clear bilaterally, anterolateral. Abdomen mildly distended and soft, with normal bowel sounds; no tenderness, mass or organomegaly; small reducible umbilical hernia. Appendectomy and prostatectomy scars. Extremities with pretibial edema. Pulses normal. No clubbing, cyanosis. No asterixis. Results Pertinent Lab Results: Laboratory Tests 06/06 06/06 06/06 06/06 1533 1155 0635 0605 Chemistry Troponin I (<0.11 ng/ml) 0.01 0.03 Hematology CBC w Diff Pending NO MAN DIFF REQ WBC (4.8 - 10.8 /CUMM) Pending 6.1 RBC (4.70 - 6.10 /CUMM) Pending 2.84 L Hgb (14.0 - 18.0 G/DL) Pending 6.8 *L Hct (42 - 52 %) Pending 21.2 L MCV (80.0 - 94.0 FL) Pending 74.7 L MCH (27.0 - 31.0 PG) Pending 23.9 L RDW (11.5 - 14.5 %) Pending 22.6 H Plt Count (130 - 400 /CUMM) Pending 300 MPV (7.4 - 10.4 FL) Pending 8.6 Gran % (42.2 - 75.2 %) 62.8 Lymphocytes % (20.5 - 51.1 %) 22.0 Monocytes % (1.7 - 9.3 %) 14.3 H Eosinophils % (0 - 5 %) 0.4 Basophils % (0.0 - 2.0 %) 0.5 Absolute Granulocytes (1.4 - 6.5 /CUMM) 3.8 Absolute Lymphocytes (1.2 - 3.4 /CUMM) 1.4 Absolute Monocytes (0.10 - 0.60 /CUMM) 0.9 H Absolute Eosinophils (0.0 - 0.7 /CUMM) 0 Absolute Basophils (0.0 - 0.2 /CUMM) 0 PUBS MCHC (33.0 - 37.0 G/DL) Pending 32.0 L 06/06 06/06 0600 0043 Toxicology Lead Sample Type Pending Lead Pending Urines Urine Color (YEL,AMB,STR) STRAW Urine Clarity (CLEAR) CLEAR Urine pH (5.0 - 8.0) 6.5 Ur Specific [place] (1.001 - 1.035) 1.010 Urine Protein (NEG,<30 MG/DL) NEG Urine Ketones (NEG) NEG Urine Nitrite (NEG) NEG Urine Bilirubin (NEG) NEG Urine Urobilinogen (0.1 - 1.0 EU/dl) 0.2 Ur Leukocyte Esterase (NEG) NEG Ur Microscopic EXAM NOT REQUIRED Urine Hemoglobin (NEG) NEG Urine Glucose (N MG/DL) NEG 06/05 2040 Chemistry Sodium (137 - 145 mmol/L) 138 Potassium (3.5 - 5.1 mmol/L) 4.6 Chloride (98 - 107 mmol/L) 101 Carbon Dioxide (22 - 30 mmol/L) 27 Anion Gap (5 - 16) 9 BUN (9 - 20 mg/dL) 13 Creatinine (0.7 - 1.2 mg/dL) 0.7 Estimated GFR (>60 ml/min) > 60 BUN/Creatinine Ratio (7 - 25 %) 18.6 Glucose (65 - 99 mg/dL) 85 Calcium (8.4 - 10.2 mg/dL) 8.8 Iron (49 - 181 ug/dL) 15 L TIBC (261 - 462 ug/dL) 388 Ferritin (17.9 - 464 ng/mL) 7.5 L Total Bilirubin (0.2 - 1.3 mg/dL) 0.5 AST (17 - 59 U/L) 22 ALT (21 - 72 U/L) 41 Alkaline Phosphatase (< 127 U/L) 97 Lactate Dehydrogenase (313 - 618 U/L) 413 Troponin I (<0.11 ng/ml) 0.03 [id number]-[id number] Pept (<125 pg/mL) 4120 H Total Protein (6.3 - 8.2 g/dL) 6.1 L Albumin (3.5 - 5.0 g/dL) 3.3 L Globulin (1.9 - 4.2 gm/dL) 2.8 Albumin/Globulin Ratio (1.1 - 2.2 %) 1.2 Vitamin B12 (239 - 931 pg/mL) 896 Folate (2.76 - 20.0 ng/mL) > 20.0 H TSH (0.270 - 4.200 uIU/mL) 2.050 Free T4 (0.78 - 2.44 ng/dL) 1.07 Coagulation PT (9.4 - 12.5 SEC) 11.3 INR (0.90 - 1.17) 1.08 APTT (25 - 37 SEC) 34 D-Dimer (70 - 232 ng/ml) < 200 Hematology CBC w Diff MAN DIFF ORDERED WBC (4.8 - 10.8 /CUMM) 6.1 RBC (4.70 - 6.10 /CUMM) 2.50 L Hgb (14.0 - 18.0 G/DL) 5.4 *L Hct (42 - 52 %) 17.7 *L MCV (80.0 - 94.0 FL) 70.9 L MCH (27.0 - 31.0 PG) 21.4 L RDW (11.5 - 14.5 %) 21.7 H Plt Count (130 - 400 /CUMM) 350 MPV (7.4 - 10.4 FL) 7.7 Segmented Neutrophils (42.2 - 75.2 %) 82 H Lymphocytes (20.5 - 51.1 %) 11 L Monocytes (1.7 - 9.3 %) 6 Basophils (0.0 - 2.0 %) 1 Platelet Estimate (ADEQUATE) ADEQUATE Hypochromic-Microcytic 2+ Poikilocytosis 1+ Anisocytosis 1+ Microcytic Cells 2+ Ovalocytes FEW Stomatocytes FEW PUBS MCHC (33.0 - 37.0 G/DL) 30.2 L Retic Count (0.5 - 2.0 %) 2.01 H Toxicology Serum Alcohol (<10 MG/DL) < 10.0 Assessment/Plan Assessment/Recommendations: 1. Anemia. This is chronic, progressive and multifactorial. There is at least a component of iron deficiency. Differential diagnosis includes esophagitis, peptic ulcer disease, Asad's erosions, angiodysplasias, neoplasm, etc. Iron malabsorption is also the differential. There is no overt bleeding, and indeed stool was found to be Hemoccult negative on admission. 2. History of B12 deficiency. 3. Long-standing alcohol use. Questionable history of cirrhosis; not apparent clinically, nor by laboratory values (INR, platelets, liver enzymes). Ultrasound in January was unrevealing. 4. Resection of colonic adenoma in 2008, without follow-up surveillance. 5. Paraesophageal hiatal hernia with previous dysphagia, but not recently. Recommendations * Await follow-up CBC status post transfusion of 2 units packed red blood cells. Maintain hemoglobin greater than 8. * Agree with hematology evaluation * EGD and colonoscopy on Wednesday. Please change diet to clear liquids after midnight tonight, and begin bowel preparation tomorrow as follows: GoLYTELY 1/2 gallon over 2 hours tomorrow late afternoon, and repeat one half gallon over 2 hours between 6 and 8 AM on Wednesday. Nothing by mouth after this. * Please call GI over the weekend with any questions or concerns. Copies To: SHAKEEL HANSON,BLESSING Pfeiffer; SHORTY HANSON,NAWAF Benítez; EDOUARD HANSON PhD,WILLIE James Consult Acknowledgment - Thank you for your consult request.
[2016-06-06 16:24] LABS: ABSOLUTE BASOPHIL COUNT 0 /CUMM (0.0-0.2); ABSOLUTE EOSINOPHIL COUNT 0.1 /CUMM (0.0-0.7); ABSOLUTE LYMPH COUNT 1.3 /CUMM (1.2-3.4); ABSOLUTE MONOCYTE COUNT 0.7 /CUMM (0.10-0.60); BASOPHIL % 0 % (0.0-2.0); EOSINOPHIL % 1.1 % (0-5); GRANULOCYTE % 59.4 % (42.2-75.2); HEMATOCRIT 20.8 % (42-52); MEAN CORPUSCULAR HGB 23.7 PG (27.0-31.0); MEAN CORPUSCULAR HGB CONC 31.8 G/DL (33.0-37.0); MEAN CORPUSCULAR VOLUME 74.4 FL (80.0-94.0); MEAN PLATELET VOLUME 8.6 FL (7.4-10.4); PLATELET COUNT 269 /CUMM (130-400); RBC DISTRIBUTION WIDTH 22.7 % (11.5-14.5); WHITE BLOOD CELL COUNT 5.1 /CUMM (4.8-10.8)
--- NOTE | 2016-06-06 19:49 | Cons- Cardiology ---
General Information and HPI Consulting Request Date of Consult: 06/06/16 Requested By: ELVIA HANSON,ARELISKSANTONYI Reason for Consult: CAD, anemia History of Present Illness: The patient is 70-year-old male with history of CAD, status post CABG, hypertension, and alcohol abuse who presented with complaint of shortness of breath. The shortness of breath was worsening over the past week, and was associated with palpitations and lower extremity edema. He presented to an urgent care where he was found to have oxygen saturation in the 70s, which improved with oxygen. He was noted to have significant anemia. He denies any melena, bright red blood per rectum, hematemesis, or hematuria. He has not been taking his low-dose aspirin for the past month. He notes that during admission to [facility] 2 years ago, he required transfusions. He complains of a recent episode of fevers, chills, and sweats, which resulted in a day. He notes that he was previously a heavy drinker but now he drinks only a beer every 2 days. Allergies/Medications Allergies: Coded Allergies: No Known Allergies (01/27/16) Home Med List: Aspirin (Ecotrin*) 81 MG TABLET.DR 1 TAB PO DAILY HEART/BLOOD (Reported) Atorvastatin Calcium (Lipitor) 80 MG TABLET 1 TAB PO DAILY CHOLESTEROL ( Reported) Folic Acid 1 MG TABLET 1 MG PO DAILY SUPPLEMENT Gabapentin 600 MG TABLET 1 TAB PO 4 TIMES/DAY PAIN CONTROL (Reported) Hydroxychlorquine (Plaquenil) 200 MG TABLET 1 TAB PO BID ARTHRITIS (Reported) Morphine Sulfate (Morphine Sulfate ER) 15 MG TABLET.ER 1 TAB PO TID PAIN ( Reported) Multivitamin (One Daily Multivitamin) 1 EACH TABLET 1 TAB PO DAILY SUPPLEMENT Oxycodone HCl 10 MG TABLET 1 TAB PO 4 TIMES/DAY PAIN (Reported) Pantoprazole Sodium (Protonix) 40 MG TABLET.DR 1 TAB PO DAILY GI (Reported) Prednisone 10 MG TABLET 1 TAB PO DAILY STEROID (Reported) Sertraline HCl (Zoloft) 100 MG TABLET 1 TAB PO DAILY MENTAL HEALTH (Reported) Current Medications: Current Medications Sig/Kim Start time Last Medication Dose Route Stop Time Status Admin Acetaminophen 650 MG Q6-PRN PRN 06/06 0215 AC PO Ceftriaxone Sodium 0 .STK-MED ONE 06/05 1789 DC .ROUTE Ferrous Sulfate 325 MG BID 06/06 1050 AC 06/06 PO 220 Morphine Sulfate 2 MG Q6P PRN 06/06 0200 AC 06/06 IV 1844 Oxycodone HCl 10 MG 4 TIMES/DAY PRN 06/06 0830 AC 06/06 PO 202 Oxycodone HCl 10 MG .STK-MED ONE 06/06 0211 DC PO 06/06 0212 Oxycodone HCl 10 MG 4 TIMES/DAY PRN 06/06 0200 DC 06/06 PO 0217 Pantoprazole Sodium 40 MG Q12 06/06 1049 AC 06/06 IV 2202 Pantoprazole Sodium 40 MG DAILY 06/06 0215 CAN IV Patient Medication 1 UNIT ONE NR 06/06 1100 DC Teaching ED 06/06 1130 Sertraline HCl 100 MG DAILY 06/06 1000 AC 06/06 PO 0831 Review of Systems Review of Systems: No rash. No tremor. No melena. No palpitations. All other systems were reviewed, and were noted to be negative. Past History Travel History Traveled to [place] past 21 day No Medical History Blood Transfusion Hx: Yes Neurological: NONE EENT: NONE Cardiovascular: CAD, hypertension Respiratory: NONE Gastrointestinal: NONE Hepatic: NONE Renal: nephrolithiasis Musculoskeletal: chronic back pain, osteoarthritis Psychiatric: depression Endocrine: PARTIAL THYROIDECTOMY Blood Disorders: anemia, B12 deficiency Cancer(s): prostate cancer FIELD CASE MANAGER/Reproductive: NONE Surgical History Surgical History: CABG, prostatectomy, BILAT HIP REPLACEMENT BILAT CATARACT SX PARTIAL THYROIDECTOMY APPENDECTOMY Family History Relations & Conditions If Any: FATHER FH: prostate cancer Psychosocial History Where Do You Live? Home Who Do You Live With? spouse, child Services at Home: None Primary Language: [place] Verde[place] Smoking Status: Former Smoker (quit >30 years ago) ETOH Use: occasional use Illicit Drug Use: marijuana, smokes, occasionally Functional Ability ADLs Independent: dressing, eating, toileting, bathing. Ambulation: independent, cane IADLs Independent: shopping, housework, finances, food prep, telephone, transportation , medication admin. 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 Exam & Diagnostic Data Vital Signs and I&O Vital Signs Date Time Temp Pulse Resp B/P Pulse O2 O2 Flow FiO2 Ox Delivery Rate 06/06 1425 98.2 68 20 104/68 98 Room Air 06/06 1215 98.0 76 20 110/60 97 Room Air 06/06 0709 98.1 83 18 94/48 95 Room Air 06/06 0137 98.2 72 19 136/60 95 Room Air 06/06 0115 Room Air 06/06 0043 98.1 80 18 124/68 94 Room Air 06/06 0025 98.9 90 20 138/70 97 Room Air Intake & Output 06/06 1600 06/06 0800 06/06 0000 06/05 1600 06/05 0800 06/05 0000 Intake Total 920 700 0 Output Total 450 800 400 Balance 470 -100 -400 Intake, Blood 700 Product Intake, IV 20 Intake, Oral 900 0 Number 0 Bowel Movements Output, Urine 450 800 400 Patient 175 lb 175 lb Weight Physical Exam: Gen: The patient is in no acute distress HEENT: Normal nose, ears, and oropharynx. Pupils equal bilaterally. Conjunctiva normal. Neck: Supple with no JVD, no masses, and no thyromegaly Lungs: Clear to auscultation with normal respiratory effort Heart: RRR, S1, S2, 1/6 systolic murmur. 2+ peripheral edema, 2+ pulses in the lower extremities bilaterally Abdomen: Soft, nontender, no masses. No hepatomegaly. No splenomegaly Extremities: No clubbing or cyanosis. Normal muscle strength in the upper and lower extremities Skin: Normal skin turgor with no skin ulcers or lesions noted. Neuro: Cranial nerves intact. Sensation intact Psych: Alert and oriented 3 with appropriate affect Labs/Antwan Results: Laboratory Tests 06/06 06/06 06/06 1533 1155 0635 Chemistry Troponin I (<0.11 ng/ml) 0.01 0.03 Hematology CBC w Diff NO MAN DIFF REQ WBC (4.8 - 10.8 /CUMM) 5.1 RBC (4.70 - 6.10 /CUMM) 2.80 L Hgb (14.0 - 18.0 G/DL) 6.6 *L Hct (42 - 52 %) 20.8 L MCV (80.0 - 94.0 FL) 74.4 L MCH (27.0 - 31.0 PG) 23.7 L RDW (11.5 - 14.5 %) 22.7 H Plt Count (130 - 400 /CUMM) 269 MPV (7.4 - 10.4 FL) 8.6 Gran % (42.2 - 75.2 %) 59.4 Lymphocytes % (20.5 - 51.1 %) 24.9 Monocytes % (1.7 - 9.3 %) 14.6 H Eosinophils % (0 - 5 %) 1.1 Basophils % (0.0 - 2.0 %) 0 L Absolute Granulocytes (1.4 - 6.5 /CUMM) 3.0 Absolute Lymphocytes (1.2 - 3.4 /CUMM) 1.3 Absolute Monocytes (0.10 - 0.60 /CUMM) 0.7 H Absolute Eosinophils (0.0 - 0.7 /CUMM) 0.1 Absolute Basophils (0.0 - 0.2 /CUMM) 0 PUBS MCHC (33.0 - 37.0 G/DL) 31.8 L 06/06 06/06 0605 0600 Hematology CBC w Diff NO MAN DIFF REQ WBC (4.8 - 10.8 /CUMM) 6.1 RBC (4.70 - 6.10 /CUMM) 2.84 L Hgb (14.0 - 18.0 G/DL) 6.8 *L Hct (42 - 52 %) 21.2 L MCV (80.0 - 94.0 FL) 74.7 L MCH (27.0 - 31.0 PG) 23.9 L RDW (11.5 - 14.5 %) 22.6 H Plt Count (130 - 400 /CUMM) 300 MPV (7.4 - 10.4 FL) 8.6 Gran % (42.2 - 75.2 %) 62.8 Lymphocytes % (20.5 - 51.1 %) 22.0 Monocytes % (1.7 - 9.3 %) 14.3 H Eosinophils % (0 - 5 %) 0.4 Basophils % (0.0 - 2.0 %) 0.5 Absolute Granulocytes (1.4 - 6.5 /CUMM) 3.8 Absolute Lymphocytes (1.2 - 3.4 /CUMM) 1.4 Absolute Monocytes (0.10 - 0.60 /CUMM) 0.9 H Absolute Eosinophils (0.0 - 0.7 /CUMM) 0 Absolute Basophils (0.0 - 0.2 /CUMM) 0 PUBS MCHC (33.0 - 37.0 G/DL) 32.0 L Toxicology Lead Sample Type Pending Lead Pending 06/06 06/05 0043 2041 Chemistry Sodium (137 - 145 mmol/L) 138 Potassium (3.5 - 5.1 mmol/L) 4.6 Chloride (98 - 107 mmol/L) 101 Carbon Dioxide (22 - 30 mmol/L) 27 Anion Gap (5 - 16) 9 BUN (9 - 20 mg/dL) 13 Creatinine (0.7 - 1.2 mg/dL) 0.7 Estimated GFR (>60 ml/min) > 60 BUN/Creatinine Ratio (7 - 25 %) 18.6 Glucose (65 - 99 mg/dL) 85 Calcium (8.4 - 10.2 mg/dL) 8.8 Iron (49 - 181 ug/dL) 15 L TIBC (261 - 462 ug/dL) 388 Ferritin (17.9 - 464 ng/mL) 7.5 L Total Bilirubin (0.2 - 1.3 mg/dL) 0.5 AST (17 - 59 U/L) 22 ALT (21 - 72 U/L) 41 Alkaline Phosphatase (< 127 U/L) 97 Lactate Dehydrogenase (313 - 618 U/L) 413 Troponin I (<0.11 ng/ml) 0.03 Oec-U-Ydfmuqcteoz Pept (<125 pg/mL) 4120 H Total Protein (6.3 - 8.2 g/dL) 6.1 L Albumin (3.5 - 5.0 g/dL) 3.3 L Globulin (1.9 - 4.2 gm/dL) 2.8 Albumin/Globulin Ratio (1.1 - 2.2 %) 1.2 Vitamin B12 (239 - 931 pg/mL) 896 Folate (2.76 - 20.0 ng/mL) > 20.0 H TSH (0.270 - 4.200 uIU/mL) 2.050 Free T4 (0.78 - 2.44 ng/dL) 1.07 Coagulation PT (9.4 - 12.5 SEC) 11.3 INR (0.90 - 1.17) 1.08 APTT (25 - 37 SEC) 34 D-Dimer (70 - 232 ng/ml) < 200 Hematology CBC w Diff MAN DIFF ORDERED WBC (4.8 - 10.8 /CUMM) 6.1 RBC (4.70 - 6.10 /CUMM) 2.50 L Hgb (14.0 - 18.0 G/DL) 5.4 *L Hct (42 - 52 %) 17.7 *L MCV (80.0 - 94.0 FL) 70.9 L MCH (27.0 - 31.0 PG) 21.4 L RDW (11.5 - 14.5 %) 21.7 H Plt Count (130 - 400 /CUMM) 350 MPV (7.4 - 10.4 FL) 7.7 Segmented Neutrophils (42.2 - 75.2 %) 82 H Lymphocytes (20.5 - 51.1 %) 11 L Monocytes (1.7 - 9.3 %) 6 Basophils (0.0 - 2.0 %) 1 Platelet Estimate (ADEQUATE) ADEQUATE Hypochromic-Microcytic 2+ Poikilocytosis 1+ Anisocytosis 1+ Microcytic Cells 2+ Ovalocytes FEW Stomatocytes FEW PUBS MCHC (33.0 - 37.0 G/DL) 30.2 L Retic Count (0.5 - 2.0 %) 2.01 H Toxicology Serum Alcohol (<10 MG/DL) < 10.0 Urines Urine Color (YEL,AMB,STR) STRAW Urine Clarity (CLEAR) CLEAR Urine pH (5.0 - 8.0) 6.5 Ur Specific [place] (1.001 - 1.035) 1.010 Urine Protein (NEG,<30 MG/DL) NEG Urine Ketones (NEG) NEG Urine Nitrite (NEG) NEG Urine Bilirubin (NEG) NEG Urine Urobilinogen (0.1 - 1.0 EU/dl) 0.2 Ur Leukocyte Esterase (NEG) NEG Ur Microscopic EXAM NOT REQUIRED Urine Hemoglobin (NEG) NEG Urine Glucose (N MG/DL) NEG Diagnostic Data EKG Results EKG tracing is independently reviewed, and reveals normal sinus rhythm at 66, normal EKG CXR Results Small right effusion with associated right basilar infiltrate or atelectasis. Findings may represent evolving pneumonia in the appropriate clinical setting. Assessment/Plan Assessment/Plan Assessment: 1. CAD, status post CABG 2. Past history of alcohol abuse 3. Acute on chronic anemia, symptomatic 4. Chronic heart failure, no definite acute exacerbation Recommendations: * Agree with transfusion * 40 mg of IV Lasix given in the emergency department. Would hold off for now on further diuresis. * Echocardiogram * Myocardial infarction has been ruled out with negative troponin 2. Consult Acknowledgment - Thank you for your consult request.
[2016-06-07] VITALS: BP 113/62
--- NOTE | 2016-06-07 07:51 | PN- Housestaff ---
Subjective Follow-up For: Symptomatically anemia Subjective: Pt is seen and examined at bedside. Patient expresses discontent regarding not having his gabapentin and asks why he is not receiving it. Endorses leg pain which he states that is part of his neuropathic pain. He denies any chest pain, palpitation, shortness of breath, dizziness, fever, chills, nausea, vomiting, abdominal pain or dysuria. No acute overnight event reported by nursing staff. Review of Systems Constitutional: Reports: no symptoms. Objective Last 24 Hrs of Vital Signs/I&O Vital Signs Date Time Temp Pulse Resp B/P Pulse O2 O2 Flow FiO2 Ox Delivery Rate 06/07 1522 98.2 76 18 126/80 94 Room Air Room Air 06/07 0800 98.0 70 18 123/81 92 Room Air Room Air 06/07 0000 98.0 68 20 113/62 94 Room Air Intake & Output 06/07 1600 06/07 0800 06/07 0000 Intake Total 1150 300 800 Output Total 825 350 Balance 325 300 450 Intake, Blood 350 Product Intake, Oral 800 300 800 Number 0 1 Bowel Movements Output, Urine 825 350 Physical Exam General Appearance: Alert, Oriented X3, Cooperative Other Physical Findings: General Appearance Alert, Oriented X3, Cooperative, No Acute Distress Skin several excoriated lesions on the upper trunk and extremities HEENT Atraumatic, PERRLA, EOMI, pale mucosa Neck Supple, No JVD Cardiovascular Regular Rate, Normal S1, Normal S2, 1/6 systolic murmur heard at apex Lungs Clear to Auscultation, Normal Air Movement Abdomen Soft, No Tenderness, increased bowel sounds, slightly distended, no shifting dullness Neurological Normal Speech, Strength at 5/5 X4 Ext, Normal Tone, Sensation Intact, Cranial Nerves 3-12 NL Extremities 2+ pitting edema Vascular Normal Pulses, Pulses Symmetrical Assessment/Plan Assessment: Pt is a 70 yo M with h/o CAD s/p CABG, prostate cancer s/p protatectomy, HTN, RA , chronic pain, alcohol dependence, chronic anemia, B12 deficiency and neuropathy, is here with symptomatic anemia (exertional dyspnea, palpitations and LE edema over past 1 week). She was noted to have a low hemoglobin level and was transfused 2 units during admission date. Assessment and plan Acute on chronic anemia Possible etiology is multifactorial as patient has a history of microcytic anemia. GI was consulted and recommended a scope on Wednesday to rule out any GI source of bleed including ulcers, polyps, AVMs. Plan We'll transfuse patient 1 unit of PRBC as patient level is 6.9 today , goal is to maintain a level of 8 in preparation of endoscopy tomorrow Patient is already on clear liquids and has started GoLYTELY preparation per GI recommendation Will trend CBC tomorrow morning #Acute hypoxia Decrease shortness of breath is suggestive of symptomatic anemia. Saturation is however concerning us should not be presenting with anemia. Chest x-ray was remotely suggestive of pneumonia however patient does not endorse any clinical symptoms of cough is afebrile with no leukocytosis. Acute coronary syndrome was ruled out by serial troponins and EKG. Patient presentation is also not suggestive of decompensated CHF . #History of CAD Continue home meds. Problem List: 1. Symptomatic anemia Pain Ratin Pain Location: legs Pain Goal: Pain 4 or less Pain Plan: restarted gabapentin Tomorrow's Labs & Rationales: CBC-S/P transfusion BEP
[2016-06-07 08:00] VITALS: BP 123/81
[2016-06-07 08:16] LABS: ABSOLUTE BASOPHIL COUNT 0 /CUMM (0.0-0.2); ABSOLUTE MONOCYTE COUNT 0.7 /CUMM (0.10-0.60); RED BLOOD CELL CT 2.96 /CUMM (4.70-6.10)
[2016-06-07 09:22] LABS: HEMATOCRIT 21.6 % (42-52); MEAN CORPUSCULAR HGB 23.8 PG (27.0-31.0); MEAN CORPUSCULAR VOLUME 74.7 FL (80.0-94.0); WHITE BLOOD CELL COUNT 4.4 /CUMM (4.8-10.8)
[2016-06-07 09:23] LABS: BASOPHIL % 0.4 % (0.0-2.0); EOSINOPHIL % 1.2 % (0-5); GRANULOCYTE % 56.2 % (42.2-75.2); MEAN CORPUSCULAR HGB CONC 31.8 G/DL (33.0-37.0); MEAN PLATELET VOLUME 8.8 FL (7.4-10.4); PLATELET COUNT 258 /CUMM (130-400); RBC DISTRIBUTION WIDTH 23.2 % (11.5-14.5)
[2016-06-07 09:24] LABS: ABSOLUTE EOSINOPHIL COUNT 0.1 /CUMM (0.0-0.7); ABSOLUTE GRANULOCYTE CT 2.5 /CUMM (1.4-6.5); ABSOLUTE LYMPH COUNT 1.2 /CUMM (1.2-3.4)
--- NOTE | 2016-06-07 15:11 | PN- Cardiology ---
Subjective Subjective: The patient reports that he is feeling well. He is currently receiving a transfusion. No chest pain. No palpitations. No shortness of breath. No dizziness. Objective Vital Signs and I&Os Vital Signs Date Time Temp Pulse Resp B/P Pulse O2 O2 Flow FiO2 Ox Delivery Rate 06/07 08 98.0 70 18 123/81 92 Room Air Room Air 06/07 0000 98.0 68 20 113/62 94 Room Air Intake & Output 06/07 1600 06/07 0800 06/07 0000 06/06 1600 06/06 0806/06 0000 Intake Total 1150 300 800 920 700 0 Output Total 350 450 800 400 Balance 1150 300 450 470 -100 -400 Intake, Blood 350 700 Product Intake, IV 20 Intake, Oral 800 300 800 900 0 Number 0 1 0 Bowel Movements Output, Urine 350 450 800 400 Patient 175 lb 175 lb Weight Physical Exam: Gen: The patient is in no acute distress HEENT: Normal nose, ears, and oropharynx. Pupils equal bilaterally. Conjunctiva normal. Neck: Supple with no JVD, no masses, and no thyromegaly Lungs: Clear to auscultation with normal respiratory effort Heart: RRR, S1, S2, 1/6 systolic murmur. 2+ peripheral edema, 2+ pulses in the lower extremities bilaterally Abdomen: Soft, nontender, no masses. No hepatomegaly. No splenomegaly Extremities: No clubbing or cyanosis. Normal muscle strength in the upper and lower extremities Skin: Normal skin turgor with no skin ulcers or lesions noted. Neuro: Cranial nerves intact. Sensation intact Current Medications: Current Medications Sig/Kim Start time Last Medication Dose Route Stop Time Status Admin Acetaminophen 650 MG Q6-PRN PRN 06/06 0215 AC PO Ferrous Sulfate 325 MG BID 06/06 1050 AC 06/07 PO 0811 Gabapentin 600 MG Q6 06/07 1200 AC 06/07 PO 1342 Gabapentin 600 MG ONCE ONE 06/07 0230 DC 06/07 PO 06/07 0231 0521 Morphine Sulfate 2 MG Q6P PRN 06/06 0200 AC 06/07 IV 1150 Oxycodone HCl 10 MG .STK-MED ONE 06/07 0004 DC PO 06/07 0005 Oxycodone HCl 10 MG 4 TIMES/DAY PRN 06/06 0830 AC 06/07 PO 0808 Pantoprazole Sodium 40 MG Q12 06/06 1049 AC 06/07 IV 0808 Polyethylene Glycol 0.5 GAL 0600,1800 06/07 1800 AC PO 06/08 0601 Sertraline HCl 100 MG DAILY 06/06 1000 AC 06/07 PO 0811 Zolpidem Tartrate 5 MG ONCE ONE 06/07 0100 DC 06/07 PO 06/07 010 0052 Results Last 48 Hrs of Labs/Mics: Laboratory Tests 06/07/16 0650: CBC w Diff NO MAN DIFF REQ, RBC 2.96 L, MCV 74.7 L, MCH 23.8 L, RDW 23.2 H, MPV 8.8, Gran % 56.2, Lymphocytes % 27.2, Monocytes % 15.0 H, Eosinophils % 1.2 , Basophils % 0.4, Absolute Granulocytes 2.5, Absolute Lymphocytes 1.2, Absolute Monocytes 0.7 H, Absolute Eosinophils 0.1, Absolute Basophils 0, PUBS MCHC 31.8 L 06/06/16 1533: CBC w Diff NO MAN DIFF REQ, RBC 2.80 L, MCV 74.4 L, MCH 23.7 L, RDW 22.7 H, MPV 8.6, Gran % 59.4, Lymphocytes % 24.9, Monocytes % 14.6 H, Eosinophils % 1.1 , Basophils % 0 L, Absolute Granulocytes 3.0, Absolute Lymphocytes 1.3, Absolute Monocytes 0.7 H, Absolute Eosinophils 0.1, Absolute Basophils 0, PUBS MCHC 31.8 L 06/06/16 1155: Troponin I 0.01 06/06/16 0635: Troponin I 0.03 06/06/16 0605: CBC w Diff NO MAN DIFF REQ, RBC 2.84 L, MCV 74.7 L, MCH 23.9 L, RDW 22.6 H, MPV 8.6, Gran % 62.8, Lymphocytes % 22.0, Monocytes % 14.3 H, Eosinophils % 0.4 , Basophils % 0.5, Absolute Granulocytes 3.8, Absolute Lymphocytes 1.4, Absolute Monocytes 0.9 H, Absolute Eosinophils 0, Absolute Basophils 0, PUBS MCHC 32.0 L 06/06/16 0600: Lead Sample Type Pending, Lead Pending 06/06/16 0043: Urine Color STRAW, Urine Clarity CLEAR, Urine pH 6.5, Ur Specific [place] 1.010, Urine Protein NEG, Urine Ketones NEG, Urine Nitrite NEG, Urine Bilirubin NEG, Urine Urobilinogen 0.2, Ur Leukocyte Esterase NEG, Ur Microscopic EXAM NOT REQUIRED, Urine Hemoglobin NEG, Urine Glucose NEG 06/05/162040: Anion Gap 9, Estimated GFR > 60, BUN/Creatinine Ratio 18.6, Glucose 85, Calcium 8.8, Iron 15 L, TIBC 388, Ferritin 7.5 L, Total Bilirubin 0.5, AST 22, ALT 41, Alkaline Phosphatase 97, Lactate Dehydrogenase 413, Troponin I 0.03, Pro-B- Natriuretic Pept 4120 H, Total Protein 6.1 L, Albumin 3.3 L, Globulin 2.8, Albumin/Globulin Ratio 1.2, Vitamin B12 896, Folate > 20.0 H, TSH 2.050, Free T4 1.07, PT 11.3, INR 1.08, APTT 34, D-Dimer < 200, CBC w Diff MAN DIFF ORDERED, RBC 2.50 L, MCV 70.9 L, MCH 21.4 L, RDW 21.7 H, MPV 7.7, Segmented Neutrophils 82 H, Lymphocytes 11 L, Monocytes 6, Basophils 1, Platelet Estimate ADEQUATE, Hypochromic-Microcytic 2+, Poikilocytosis 1+, Anisocytosis 1+ , Microcytic Cells 2+, Ovalocytes FEW, Stomatocytes FEW, PUBS MCHC 30.2 L, Retic Count 2.01 H, Serum Alcohol < 10.0 Assessment/Plan Assessment/Plan Assessment: 1. CAD, status post CABG 2. Past history of alcohol abuse 3. Acute on chronic anemia, symptomatic 4. Chronic heart failure, no definite acute exacerbation Recommendations: * Agree with transfusion * Hold off on diuretics for now. * Echocardiogram pending. * Myocardial infarction has been ruled out with negative troponin 2. Continue telemetry? Not applicable
[2016-06-07 15:22] VITALS: BP 126/80
--- NOTE | 2016-06-07 16:10 | PN- Att Addend ---
Attending MD Review Statement Attending Statement Attending MD Statement: examined this patient, discuss w/resident/PA/SOCIAL WORKER MASTERS, agreed w/resident/PA/SOC[employer] WORKER [employer]STERS, reviewed EMR data (avail), discussed w/nursing Attending Assessment/Plan: Laboratory Tests 06/07/16 0650: CBC w Diff NO MAN DIFF REQ, RBC 2.96 L, MCV 74.7 L, MCH 23.8 L, RDW 23.2 H, MPV 8.8, Gran % 56.2, Lymphocytes % 27.2, Monocytes % 15.0 H, Eosinophils % 1.2 , Basophils % 0.4, Absolute Granulocytes 2.5, Absolute Lymphocytes 1.2, Absolute Monocytes 0.7 H, Absolute Eosinophils 0.1, Absolute Basophils 0, PUBS MCHC 31.8 L Vital Signs Date Time Temp Pulse Resp B/P Pulse O2 O2 Flow FiO2 Ox Delivery Rate 06/07 1522 98.2 76 18 126/80 94 Room Air Room Air 06/07 0800 98.0 70 18 123/81 92 Room Air Room Air 06/07 0000 98.0 68 20 113/62 94 Room Air 70 yo M with h/o CAD s/p CABG, prostate cancer s/p protatectomy, HTN, RA, chronic pain, alcohol dependence who drinks few beers and emily per week, chronic anemia, B12 deficiency and neuropathy, is here with symptomatic anemia ( exertional dyspnea, palpitations and LE edema over past 1 week). He went to an Urgent care before admission and was noted to have O2 sats in the 70's that improved with oxygen. Pt found to be anemic with hb of 5.4 in ER and was given blood transfusion of 2 Units PRBC, repeat hb is 6.8 on 06/06 and hb today on 06/07 is 6.9 A/p- Acute symptomatic anemia requiring blood transfusion with low mcv and low serum iron and ferritin suggestive of iron def anemia. Started on iv protonix 40 q12h, GI consulted. monitor h/h q12h and transfuse as needed. Will transfuse 1 U PRBC today as pt planned for EGD and colonoscopy Wednesday. Cardio saw the patient and is going to Echo d/w pt the care plan and improtance to quit drinking .
[2016-06-07 23:40] VITALS: BP 124/61
--- NOTE | 2016-06-08 06:19 | PN- Gastroenterology ---
Assessment/Plan Assessment/Recommendations: (*Extensive records reviewed x > 1/2 hour, along with Dr. Joya Ruiz's covering Gi consult of 06/06/2016). 70-year-old male, followed by Dr. Jauregui for primary care and Dr. Stein for cardiology, history of EtOH abuse, ASHD post CABG (on occasional outpatient ASA 81 mg daily, without NSAIDS), HTN/HLD/renal stones (type unknown)/DJD/remote smoker/depression/ history of prostate cancer, treated surgically without RT/hx AVN hips post B/L THR/left partial thyroidectomy reportedly for thyroid cancer/ post AP/multifactorial anemia, remotely seen by myself for the time of his *last 02/25/2009 EGD/colonoscopy, which point a benign subcm tubular adenoma was removed (*patient not compliant with suggested follow-up colonoscopy in 02/2014; *never had PillCam). The patient was apparently admitted to [facility] in 2013 for ? recurrent anemia, possibly requiring transfusion vs. plasmapheresis for a neurologic condition then. *The records erroneously state the patient has EtOH cirrhosis, but this is not true. 10/2005: *Low B12, anti-IF Ab- neg, anti-PC Ab- neg, normal folate, normal carotene 175, antigliadin Ab- neg, tTG Ab- neg, normal lipase, H. pylori Ab- neg. 02/23/2009: low iron 15, TIBC 141 (consistent with chronic disease), ferritin 418, normal B12, 1324 (on replacement), normal folate 17.6 02/25/2009: normal IPEP, RBC folate 842 11/2002: Colonoscopy per Dr. Jarvis- benign TA/TVA remved. 01/08/2006: EGD/colonoscopy by myself- no varices, no portal gastropathy, no PUD , HP-negative gastritis, small bowel biopsy-normal villi, mild GERD, no Phillips' s; pandiverticulosis coli, left side > right, random biopsy TI-negative, removal of 2 hyperplastic polyps. 02/25/2009: EGD/colonoscopy to TI by myself- mixed hiatal hernia pouch, Z line at 38 cm, random biopsies D2/D3-normal villi; pandiverticulosis coli, left-sided > right, random biopsy TI-negative, removal of 2 hyperplastic polyps plus subcm benign TA. The patient was admitted to [facility] 06/05/2016 for symptomatic subacute on chronic multifactorial anemia. He had shortness of breath & fatigue which resolved with transfusions, and some edema. There was no chest pain. GI review of systems from above and below her bili negative. There is no pertinent family history. There was no gross hemoptysis, hematuria, or abdominal trauma to suggest retroperitoneal bleeding. The patient was cleared by cardiology preoperatively, with negative troponins. Hematology consult was apparently requested. *EtOH < 10 on admission, with low ferritin 7.5, normal B12/folate. As of 06/08/2016, the patient is asymptomatic. He finished 1 gallon of a [employer] prep at approximately 7 a.m. Stools were OB-negative. There has been no overt GI bleeding, hematemesis, or melena. GI review of systems from above and below are negative. He is hemodynamically stable and afebrile. He denies any chest pain or shortness of breath. He has received 3u PRBC as an inpatient. 06/05/2016: XRY-PORTABLE CHEST XRAY- Small right effusion with associated right basilar infiltrate or atelectasis. Findings may represent evolving pneumonia in the appropriate clinical setting. 06/06/2016: EKG- NSR @ 82, normal axis, NSIVCD, borderline ST depression anterior laterally, NSST *Anemia is chronic, progressive and multifactorial. There is at least a component of iron deficiency. Differential diagnosis includes esophagitis, peptic ulcer disease, Asad's erosions, angiodysplasias, neoplasm, etc. Iron malabsorption is also the differential. *Previous small bowel biopsies and celiac serologies have been negative. There is no overt bleeding, and indeed stool was found to be Hemoccult negative on admission. There is nothing by history to suggest a retroperitoneal hematoma. Rule out hemolysis. History of B12 deficiency, currently stable. Long-standing alcohol use. The chart states history of cirrhosis; not apparent clinically, nor by laboratory values or by imaging studies (INR, platelets, liver enzymes). Ultrasound in 01/2016 was unrevealing. I doubt that he has cirrhosis. Multiple EGD without varices or portal gastropathy. Resection of colonic adenoma in 2008, without follow-up surveillance (follow-up colonoscopy is advised for 02/2014). Paraesophageal hiatal hernia without dysphagia. The patient has negative troponin 3 and was cleared by cardiology for GI workup. *SUGGEST: Empiric PPI. T&C 4 u PRBC. Keep Hgb > 8 (hx ASHD). NPO for EGD/colonoscopy today If EGD/colonoscopy negative, consideration for outpatient PillCam. Uneventful iron repletion. Will defer to cardiology regarding continuing baby aspirin 81 mg daily. No NSAIDs. Advise hemolysis workup (i.e.- check peripheral smear, LDH, haptoglobin, etc, although total bilirubin is normal). Consideration for CT abdomen and pelvis (doubt retroperitoeal hematoma). Consider hematology consult, as originally suggested. CIWA protocol. Ativan as needed. Multivitamin, thiamine, folate. Problem List: 1. Symptomatic anemia 2. Iron deficiency 3. History of non anemic vitamin B12 deficiency 4. Alcohol abuse 5. History of adenomatous polyp of colon 6. Hiatal hernia 7. Diverticula of colon 8. Umbilical hernia without obstruction and without gangrene Subjective Subjective: (*Extensive records reviewed x > 1/2 hour, along with Dr. Joya Ruiz's covering Gi consult of 06/06/2016). As of 06/08/2016, the patient is asymptomatic. He finished 1 gallon of a [employer] prep. Stools were OB-negative. There has been no overt GI bleeding, hematemesis, or melena. GI review of systems from above and below are negative. He is hemodynamically stable and afebrile. He denies any chest pain or shortness of breath since being transfxd. He has received 3u PRBC as an inpatient. Review of Systems: Further 14 point review of systems otherwise noncontributory, and as above. Constitutional: Reports: weakness. Denies: chills, diaphoresis, fever. EENTM: Denies: icterus, epistaxis. Cardiovascular: Reports: peripheral edema. Denies: chest pain, syncope. Respiratory: Reports: short of breath. Denies: cough, hemoptysis. GI: Reports: see HPI. Genitourinary: Denies: dysuria, hematuria. Musculoskeletal: Denies: muscle stiffness, neck pain. Skin: Denies: jaundice, rash. Neurological/Psychological: Denies: cognitive dysfunction, headache. Hematologic/Endocrine: Reports: bruising. Denies: bleeding, polyuria, polydipsia. Objective Vital Signs and I&Os Vital Signs Date Time Temp Pulse Resp B/P Pulse O2 O2 Flow FiO2 Ox Delivery Rate 06/07 2340 98.1 65 20 124/61 93 Room Air 06/07 1522 98.2 76 18 126/80 94 Room Air Room Air Intake & Output 06/08 1600 06/08 0400 06/07 1600 06/07 0400 06/06 1600 06/06 0400 Intake Total 300 2000 4301 630 6267 0 Output Total 825 432 228 6345 Balance 300 2000 172 513 3889 -1200 Intake, Blood 350 700 Product Intake, IV 20 Intake, Oral 300 1999 1100 800 900 0 Number 3 0 1 0 Bowel Movements Output, Urine 825 231 340 1268 Patient 175 lb Weight Physical Exam: Well-developed, well-nourished male in no apparent distress. Sclera anicteric. Conjunctiva slightly pale. Oropharynx clear. No oral thrush. No aphthous ulcers. There is no adenopathy, thyromegaly, or JVD. No peripheral stigmata of inflammatory bowel disease or chronic liver disease on exam. No spiders on the anterior chest. No gynecomastia. No CVA tenderness. Lungs: clear to A&P, except for slight decreased breath sounds at the right base. Heart exam: regular rate rhythm, S1 and S2, sot I/ systolic murmur. Abdominal exam: normal bowel sounds, soft belly, nontender without guarding or rebound. Reducible umbilical hernia, otherwise no mass. No organomegaly. No fluid shift. No pulsatile mass. No epigastric pain. Digital rectal exam: per ER- reportedly brown stool, OB negative on admission 06/05/2016. Extremities: without cyanosis or clubbing. Trace pitting edema B/L LE. No palpable cords. No palmar erythema. No Dupuytren's contractures. Distal pulses 1+ bilaterally. DTRs 2+ bilaterally. Alert and oriented x 3. No tremor. No asterixis. Current Medications: Current Medications Sig/Kim Start time Last Medication Dose Route Stop Time Status Admin Acetaminophen 650 MG Q6-PRN PRN 06/06 0215 AC PO Ferrous Sulfate 325 MG BID 06/06 1050 AC 06/08 PO 0807 Gabapentin 600 MG Q6 06/07 1200 AC 06/08 PO 0540 Morphine Sulfate 2 MG Q6P PRN 06/06 0200 AC 06/08 IV 0639 Oxycodone HCl 10 MG 4 TIMES/DAY PRN 06/06 0830 AC 06/08 PO 0351 Pantoprazole Sodium 40 MG Q12 06/06 1049 AC 06/08 IV 0807 Polyethylene Glycol 0.5 GAL 0600,1800 06/07 1800 DC 06/08 PO 06/08 0601 0541 Sertraline HCl 100 MG DAILY 06/06 1000 AC 06/08 PO 0807 Zolpidem Tartrate 5 MG AT BEDTIME 06/07 2200 AC 06/07 PO 2318 Results Pertinent Lab Results: Laboratory Tests 06/08 06/07 06/06 06/06 06/06 0626 0650 1533 1155 0635 Chemistry Sodium Pending Potassium Pending Chloride Pending Carbon Dioxide Pending Anion Gap Pending BUN Pending Creatinine Pending BUN/Creatinine Ratio Pending Troponin I (<0.11 ng/ml) 0.01 0.03 Hematology CBC w Diff Pending NO MAN DIFF REQ NO MAN DIFF REQ WBC (4.8 - 10.8 /CUMM) Pending 4.4 L 5.1 RBC (4.70 - 6.10 /CUMM) Pending 2.96 L 2.80 L Hgb (14.0 - 18.0 G/DL) Pending 6.9 *L 6.6 *L Hct (42 - 52 %) Pending 21.6 L 20.8 L MCV (80.0 - 94.0 FL) Pending 74.7 L 74.4 L MCH (27.0 - 31.0 PG) Pending 23.8 L 23.7 L RDW (11.5 - 14.5 %) Pending 23.2 H 22.7 H Plt Count (130 - 400 /CUMM) Pending 258 269 MPV (7.4 - 10.4 FL) Pending 8.8 8.6 Gran % (42.2 - 75.2 %) Pending 56.2 59.4 Lymphocytes % (20.5 - 51.1 %) Pending 27.2 24.9 Monocytes % (1.7 - 9.3 %) Pending 15.0 H 14.6 H Eosinophils % (0 - 5 %) Pending 1.2 1.1 Basophils % (0.0 - 2.0 %) Pending 0.4 0 L Absolute Granulocytes (1.4 - 6.5 /CUMM) Pending 2.5 3.0 Absolute Lymphocytes (1.2 - 3.4 /CUMM) Pending 1.2 1.3 Absolute Monocytes (0.10 - 0.60 /CUMM) Pending 0.7 H 0.7 H Absolute Eosinophils (0.0 - 0.7 /CUMM) Pending 0.1 0.1 Absolute Basophils (0.0 - 0.2 /CUMM) Pending 0 0 PUBS MCHC (33.0 - 37.0 G/DL) Pending 31.8 L 31.8 L 06/06 06/06 0605 0600 Hematology CBC w Diff NO MAN DIFF REQ WBC (4.8 - 10.8 /CUMM) 6.1 RBC (4.70 - 6.10 /CUMM) 2.84 L Hgb (14.0 - 18.0 G/DL) 6.8 *L Hct (42 - 52 %) 21.2 L MCV (80.0 - 94.0 FL) 74.7 L MCH (27.0 - 31.0 PG) 23.9 L RDW (11.5 - 14.5 %) 22.6 H Plt Count (130 - 400 /CUMM) 300 MPV (7.4 - 10.4 FL) 8.6 Gran % (42.2 - 75.2 %) 62.8 Lymphocytes % (20.5 - 51.1 %) 22.0 Monocytes % (1.7 - 9.3 %) 14.3 H Eosinophils % (0 - 5 %) 0.4 Basophils % (0.0 - 2.0 %) 0.5 Absolute Granulocytes (1.4 - 6.5 /CUMM) 3.8 Absolute Lymphocytes (1.2 - 3.4 /CUMM) 1.4 Absolute Monocytes (0.10 - 0.60 /CUMM) 0.9 H Absolute Eosinophils (0.0 - 0.7 /CUMM) 0 Absolute Basophils (0.0 - 0.2 /CUMM) 0 PUBS MCHC (33.0 - 37.0 G/DL) 32.0 L Toxicology Lead Sample Type Pending Lead Pending 06/06 06/05 0043 2041 Chemistry Sodium (137 - 145 mmol/L) 138 Potassium (3.5 - 5.1 mmol/L) 4.6 Chloride (98 - 107 mmol/L) 101 Carbon Dioxide (22 - 30 mmol/L) 27 Anion Gap (5 - 16) 9 BUN (9 - 20 mg/dL) 13 Creatinine (0.7 - 1.2 mg/dL) 0.7 Estimated GFR (>60 ml/min) > 60 BUN/Creatinine Ratio (7 - 25 %) 18.6 Glucose (65 - 99 mg/dL) 85 Calcium (8.4 - 10.2 mg/dL) 8.8 Iron (49 - 181 ug/dL) 15 L TIBC (261 - 462 ug/dL) 388 Ferritin (17.9 - 464 ng/mL) 7.5 L Total Bilirubin (0.2 - 1.3 mg/dL) 0.5 AST (17 - 59 U/L) 22 ALT (21 - 72 U/L) 41 Alkaline Phosphatase (< 127 U/L) 97 Lactate Dehydrogenase (313 - 618 U/L) 413 Troponin I (<0.11 ng/ml) 0.03 Ruv-I-Lqsewjfcdos Pept (<125 pg/mL) 4120 H Total Protein (6.3 - 8.2 g/dL) 6.1 L Albumin (3.5 - 5.0 g/dL) 3.3 L Globulin (1.9 - 4.2 gm/dL) 2.8 Albumin/Globulin Ratio (1.1 - 2.2 %) 1.2 Vitamin B12 (239 - 931 pg/mL) 896 Folate (2.76 - 20.0 ng/mL) > 20.0 H TSH (0.270 - 4.200 uIU/mL) 2.050 Free T4 (0.78 - 2.44 ng/dL) 1.07 Coagulation PT (9.4 - 12.5 SEC) 11.3 INR (0.90 - 1.17) 1.08 APTT (25 - 37 SEC) 34 D-Dimer (70 - 232 ng/ml) < 200 Hematology CBC w Diff MAN DIFF ORDERED WBC (4.8 - 10.8 /CUMM) 6.1 RBC (4.70 - 6.10 /CUMM) 2.50 L Hgb (14.0 - 18.0 G/DL) 5.4 *L Hct (42 - 52 %) 17.7 *L MCV (80.0 - 94.0 FL) 70.9 L MCH (27.0 - 31.0 PG) 21.4 L RDW (11.5 - 14.5 %) 21.7 H Plt Count (130 - 400 /CUMM) 350 MPV (7.4 - 10.4 FL) 7.7 Segmented Neutrophils (42.2 - 75.2 %) 82 H Lymphocytes (20.5 - 51.1 %) 11 L Monocytes (1.7 - 9.3 %) 6 Basophils (0.0 - 2.0 %) 1 Platelet Estimate (ADEQUATE) ADEQUATE Hypochromic-Microcytic 2+ Poikilocytosis 1+ Anisocytosis 1+ Microcytic Cells 2+ Ovalocytes FEW Stomatocytes FEW PUBS MCHC (33.0 - 37.0 G/DL) 30.2 L Retic Count (0.5 - 2.0 %) 2.01 H Toxicology Serum Alcohol (<10 MG/DL) < 10.0 Urines Urine Color (YEL,AMB,STR) STRAW Urine Clarity (CLEAR) CLEAR Urine pH (5.0 - 8.0) 6.5 Ur Specific [place] (1.001 - 1.035) 1.010 Urine Protein (NEG,<30 MG/DL) NEG Urine Ketones (NEG) NEG Urine Nitrite (NEG) NEG Urine Bilirubin (NEG) NEG Urine Urobilinogen (0.1 - 1.0 EU/dl) 0.2 Ur Leukocyte Esterase (NEG) NEG Ur Microscopic EXAM NOT REQUIRED Urine Hemoglobin (NEG) NEG Urine Glucose (N MG/DL) NEG Imaging/Other Studies: 06/05/2016: XRY-PORTABLE CHEST XRAY- Small right effusion with associated right basilar infiltrate or atelectasis. Findings may represent evolving pneumonia in the appropriate clinical setting. 06/06/2016: EKG- NSR @ 82, normal axis, NSIVCD, borderline ST depression anterior laterally, NSST
[2016-06-08 07:55] LABS: ABSOLUTE BASOPHIL COUNT 0 /CUMM (0.0-0.2); ABSOLUTE EOSINOPHIL COUNT 0 /CUMM (0.0-0.7); BASOPHIL % 0 % (0.0-2.0); WHITE BLOOD CELL COUNT 4.9 /CUMM (4.8-10.8)
[2016-06-08 08:08] LABS: ABSOLUTE GRANULOCYTE CT 2.8 /CUMM (1.4-6.5); ABSOLUTE LYMPH COUNT 1.4 /CUMM (1.2-3.4); ABSOLUTE MONOCYTE COUNT 0.6 /CUMM (0.10-0.60); EOSINOPHIL % 0.9 % (0-5); GRANULOCYTE % 58.3 % (42.2-75.2); MEAN CORPUSCULAR HGB CONC 31.2 G/DL (33.0-37.0); MEAN PLATELET VOLUME 7.9 FL (7.4-10.4); PLATELET COUNT 297 /CUMM (130-400); RBC DISTRIBUTION WIDTH 23.9 % (11.5-14.5); RED BLOOD CELL CT 3.66 /CUMM (4.70-6.10)
[2016-06-08 08:11] LABS: HEMATOCRIT 28.2 % (42-52)
--- NOTE | 2016-06-08 08:21 | Cons- Hematology ---
General Information and HPI Consulting Request Date of Consult: 06/08/16 Requested By: ELVIA HANSON,SANTI Reason for Consult: SEVERE ANEMIA Source of Information: patient, old records Exam Limitations: no limitations History of Present Illness: Mr. Vyas is 70-year-old male with history of anemia, alcohol use, CAD status post CABG, vitamin B12 deficiency, prostate cancer status post prostatectomy, thyroid cancer (?) and hypertension who presents with severe shortness of breath and chest pain. This has been ongoing for the last 1 week. He denies any fever or chills. He reports no bleeding. He denies melena, hematochezia, hematemesis , hemoptysis, or epistaxis. He reports having a history of anemia. He is suppose to take iron but he has not taken it. His last colonoscopy and EGD was in 2008. He denies any weight loss. He continues to drink alcohol. He does not see a physician. On admission, his hemoglobin was 5.4 g/dL. MCV was 70.9. He was transfused with 3 units of pRBC. He has been seen by GI and will undergo endoscopy today. Allergies/Medications Allergies: Coded Allergies: No Known Allergies (01/27/16) Home Med List: Aspirin (Ecotrin*) 81 MG TABLET.DR 1 TAB PO DAILY HEART/BLOOD (Reported) Atorvastatin Calcium (Lipitor) 80 MG TABLET 1 TAB PO DAILY CHOLESTEROL ( Reported) Folic Acid 1 MG TABLET 1 MG PO DAILY SUPPLEMENT Gabapentin 600 MG TABLET 1 TAB PO 4 TIMES/DAY PAIN CONTROL (Reported) Hydroxychlorquine (Plaquenil) 200 MG TABLET 1 TAB PO BID ARTHRITIS (Reported) Morphine Sulfate (Morphine Sulfate ER) 15 MG TABLET.ER 1 TAB PO TID PAIN ( Reported) Multivitamin (One Daily Multivitamin) 1 EACH TABLET 1 TAB PO DAILY SUPPLEMENT Oxycodone HCl 10 MG TABLET 1 TAB PO 4 TIMES/DAY PAIN (Reported) Pantoprazole Sodium (Protonix) 40 MG TABLET.DR 1 TAB PO DAILY GI (Reported) Prednisone 10 MG TABLET 1 TAB PO DAILY STEROID (Reported) Sertraline HCl (Zoloft) 100 MG TABLET 1 TAB PO DAILY MENTAL HEALTH (Reported) Current Medications: Current Medications Sig/Kim Start time Last Medication Dose Route Stop Time Status Admin Acetaminophen 650 MG Q6-PRN PRN 06/06 0215 AC PO Ferrous Sulfate 325 MG BID 06/06 1050 AC 06/08 PO 0807 Gabapentin 600 MG Q6 06/07 1200 AC 06/08 PO 0540 Morphine Sulfate 2 MG Q6P PRN 06/06 0200 AC 06/08 IV 0639 Oxycodone HCl 10 MG 4 TIMES/DAY PRN 06/06 0830 AC 06/08 PO 0351 Pantoprazole Sodium 40 MG Q12 06/06 1049 AC 06/08 IV 0807 Polyethylene Glycol 0.5 GAL 0600,1800 06/07 1800 DC 06/08 PO 06/08 0601 0541 Sertraline HCl 100 MG DAILY 06/06 1000 AC 06/08 PO 0807 Zolpidem Tartrate 5 MG AT BEDTIME 06/07 2200 AC 06/07 PO 2318 Review of Systems Review of Systems Constitutional: Denies: chills, weakness. EENTM: Denies: double vision. Cardiovascular: Reports: chest pain, palpitations. Respiratory: Denies: short of breath. GI: Denies: abdominal pain, constipation, melena, nausea, bloody stool, changes in stool, vomiting. Genitourinary: Denies: dysuria, frequency, hematuria. Musculoskeletal: Denies: back pain, joint pain, joint swelling. Skin: Denies: erythema, rash. Neurological/Psychological: Denies: anxiety, tingling. Hematologic/Endocrine: Denies: bruising, bleeding. Immunologic/Allergic: Denies: lymphadenopathy. 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 Home Who Do You Live With? spouse, child Services at Home: None Primary Language: Andorran Smoking Status: Former Smoker (quit >30 years ago) ETOH Use: occasional use Illicit Drug Use: marijuana, smokes, occasionally Functional Ability ADLs Independent: dressing, eating, toileting, bathing. Ambulation: independent, cane IADLs Independent: shopping, housework, finances, food prep, telephone, transportation , medication admin. 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 Ears, Nose, Throat: normal pharynx, normal ENT inspection Respiratory: normal breath sounds, chest non-tender, no respiratory distress Cardiovascular: regular rate/rhythm, murmur, systolic murmur Gastrointestinal: normal bowel sounds, soft, non-tender, no organomegaly Back: normal inspection Extremities: pedal edema Neurologic/Psych: alert, oriented x 3 Skin: warm/dry, rash (left anterior neck) Lymphatic: no anterior cervical litzy Last 48 Hours of Lab Results: Laboratory Tests 06/08 06/07 06/06 06/06 0626 0650 1533 1155 Chemistry Sodium Pending Potassium Pending Chloride Pending Carbon Dioxide Pending Anion Gap Pending BUN Pending Creatinine Pending BUN/Creatinine Ratio Pending Troponin I (<0.11 ng/ml) 0.01 Hematology CBC w Diff Pending NO MAN DIFF REQ NO MAN DIFF REQ WBC (4.8 - 10.8 /CUMM) Pending 4.4 L 5.1 RBC (4.70 - 6.10 /CUMM) Pending 2.96 L 2.80 L Hgb (14.0 - 18.0 G/DL) Pending 6.9 *L 6.6 *L Hct (42 - 52 %) Pending 21.6 L 20.8 L MCV (80.0 - 94.0 FL) Pending 74.7 L 74.4 L MCH (27.0 - 31.0 PG) Pending 23.8 L 23.7 L RDW (11.5 - 14.5 %) Pending 23.2 H 22.7 H Plt Count (130 - 400 /CUMM) Pending 258 269 MPV (7.4 - 10.4 FL) Pending 8.8 8.6 Gran % (42.2 - 75.2 %) Pending 56.2 59.4 Lymphocytes % (20.5 - 51.1 %) Pending 27.2 24.9 Monocytes % (1.7 - 9.3 %) Pending 15.0 H 14.6 H Eosinophils % (0 - 5 %) Pending 1.2 1.1 Basophils % (0.0 - 2.0 %) Pending 0.4 0 L Absolute Granulocytes (1.4 - 6.5 /CUMM) Pending 2.5 3.0 Absolute Lymphocytes (1.2 - 3.4 /CUMM) Pending 1.2 1.3 Absolute Monocytes (0.10 - 0.60 /CUMM) Pending 0.7 H 0.7 H Absolute Eosinophils (0.0 - 0.7 /CUMM) Pending 0.1 0.1 Absolute Basophils (0.0 - 0.2 /CUMM) Pending 0 0 PUBS MCHC (33.0 - 37.0 G/DL) Pending 31.8 L 31.8 L Imaging/Other Studies: CXR 06/05/2016: Small right effusion with associated right basilar infiltrate or atelectasis. Findings may represent evolving pneumonia in the appropriate clinical setting. Assessment/Plan Assessment: Mr. Vyas is a 70-yo male with prostate ca s/p prostatectomy, CAD s/p CABG, HTN, alcohol usage, and anemia who presented with shortness of breath, palpitation, chest pain, and anemia. His hemoglobin was noted to be 5.4 g/dL. Iron studies was notable for ferritin of 7.5, iron of 15, and TIBC 388. His vitamin B12 and folate level were normal. He has no obvious bleeding. He is noted to be iron deficient. His bilirubin is normal. Reticulocyte count is lower than expected for his degree of anemia which suggest a decrease in production. This is consistent with a nutritional deficiency. He has been transfused with 3 units of pRBC. His hemoglboin is 8.8 this morning. He is tentatively scheduled to have endoscopy today. He should be started on iron supplementation. Acute alcohol toxicity will also have a myelosuppression effect. He is advised to have alcohol cessation. He should be monitored with CIWA. Recommendations: 1. Endoscopy as planned 2. Ferrous sulfate 325 mg TID 3. Advise alcohol cessation Problem List: 1. Iron deficiency 2. Symptomatic anemia Other Findings/Comments: Please call [phone] with any questions or concerns Consult Acknowledgment - Thank you for your consult request.
--- NOTE | 2016-06-08 08:25 | ECHOCARDIOGRAM REPORT ---
LENNOX MCINTOSH Age: 70 : 1945 Gender: M Exam Date: 06/07/2016 11:21 Exam Location: [address] [place] [address] Ht (in): 68 Wt (lb): 175 BSA: 1.97 BP: 113 / 62 Ordering Physician: PRIYA SIEGEL MD Referring Physician: Damian Stein MD, PhD Technologist: Kasandra Villanueva [facility] Room Number: 214 Indications: SHORTNESS OF BREATH Rhythm: Sinus Technical Quality: good FINDINGS Left Ventricle Normal left ventricular size with mild left ventricular hypertrophy. Normal systolic function with no obvious regional wall motion abnormalities. Diastolic filling pattern is consistent with restrictive hemodynamics. The ejection fraction is visually estimated at 60%. Right Ventricle The right ventricle is normal in size and function. Right Atrium The right atrium is normal in size. Left Atrium The left atrium is markedly enlarged. The interatrial septum is intact. Mitral Valve The mitral valve demonstrates mild posterior annular calcification with normal function. There is mild to moderate eccentric mitral regurgitation. Aortic Valve Mildly scleroticl aortic valve without significant stenosis. There is no aortic regurgitation. Tricuspid Valve The tricuspid valve is normal in structure and function. There is mild tricuspid regurgitation. Pulmonary artery systolic pressure is moderate to severely elevated to 60mmHg. Pulmonic Valve Structurally normal pulmonic valve. There is mild pulmonic regurgitation. Pericardium Normal pericardium without effusion. No pleural effusion. Great Vessels Normal aortic root dimension. The aortic arch and great vessels are well seen and are normal. CONCLUSIONS 1. Normal EF of 60% with restrictive hemodynamics. 2. Mild left ventricular hypertrophy. 3. Markedly enlarged left atrium. 4. Mild to moderate mitral regurgitation. 5. Mild tricuspid regurgitation. 6. Mild pulmonic insufficiency. 7. Moderate to severe pulmonary hypertension. Damian Stein M.D. (Electronically Signed) Final Date: 08 June 2016 08:24 MEASUREMENTS (Male / Female) Normal Values 2D ECHO LV Diastolic Diameter PLAX 5.8 cm 4.2 - 5.9 / 3.9 - 5.3 cm LV Systolic Diameter PLAX 3.9 cm 2.1 - 4.0 cm LV Fractional Shortening PLAX 32.8 % 25 - 46 % LV Ejection Fraction 2D Teich 60.4 % IVS Diastolic Thickness 1.3 cm LVPW Diastolic Thickness 1.3 cm LV Relative Wall Thickness 0.4 RV Internal Dim ED PLAX 3.3 cm 1.9 - 3.8 cm LVOT Diameter 2.0 cm Aortic Root Diameter 3.5 cm LA Systolic Diameter LX 5.7 cm 3.0 - 4.0 / 2.7 - 3.8 cm LA Volume 74.0 cm 18 - 58 / 22 - 52 cm Ascending Aorta Diameter 3.7 cm DOPPLER AV Peak Velocity 177.0 cm/s AV Peak Gradient 12.5 mmHg AV Mean Velocity 126.0 cm/s AV Mean Gradient 7.0 mmHg AV Velocity Time Integral 40.7 cm LVOT Peak Velocity 125.0 cm/s LVOT Peak Gradient 6.3 mmHg LVOT Mean Velocity 87.9 cm/s LVOT Mean Gradient 3.0 mmHg LVOT Velocity Time Integral 27.4 cm LVOT Stroke Volume 86.1 cm AV Area Cont Eq vti 2.1 cm AV Area Cont Eq pk 2.2 cm MV Peak Velocity 157.0 cm/s MV Peak Gradient 9.9 mmHg MV Mean Velocity 68.1 cm/s MV Mean Gradient 3.0 mmHg Mitral E Point Velocity 138.0 cm/s Mitral A Point Velocity 45.2 cm/s Mitral E to A Ratio 3.1 MV PHT Velocity 162.0 cm/s MV Deceleration Sutter 654.0 cm/s MV Pressure Half Time 74.3 ms MV Area PHT 3.0 cm MV Deceleration Time 102.0 ms TR Peak Velocity 372.0 cm/s TR Peak Gradient 55.4 mmHg Right Atrial Pressure 5.0 mmHg Pulmonary Artery Systolic Pressu 60.4 mmHg Right Ventricular Systolic Press 60.4 mmHg PV Peak Velocity 113.0 cm/s PV Peak Gradient 5.1 mmHg PV Mean Velocity 78.5 cm/s PV Mean Gradient 3.0 mmHg PV Velocity Time Integral 28.6 cm LV E' Lateral Velocity 8.5 cm/s Mitral E to LV E' Lateral Ratio 16.3 LV E' Septal Velocity 6.3 cm/s Mitral E to LV E' Septal Ratio 21.8
[2016-06-08 08:32] VITALS: BP 134/70
[2016-06-08 11:28] VITALS: BP 128/72
--- NOTE | 2016-06-08 12:44 | Proc Note Gastroenterology ---
Gastroenterology Procedure Date of Last Colonoscopy: 02/25/2009 Procedure Date: 06/08/16 GI Procedure(s): Combined follow-up upper endoscopy to the third portion of the duodenum with random biopsies, plus follow-up colonoscopy to the cecum with biopsies/hot snare polypectomy 1 (done at different sites). Clerical Clerk: BLESSING BECKFORD MD ASA Classification: III Indications: INDX: (*Please refer to Dr. Joya Ruiz's covering GI consult of 06/06/2016). 70-year-old male, history of EtOH abuse, ASHD post CABG, numerous comorbidities, admitted 06/05/2016 with symptomatic multifactorial anemia, documented iron deficiency, previous history of B12 deficiency-repleted. Normal folate. *Stools OB- negative. Mild baby aspirin (not c/w this for ASHD). No NSAIDs. Remote smoker. No overt GI bleeding, hematemesis or melena. No history of abdominal trauma to suggest retroperitoneal bleed. Normal TBil goes against hemolysis. History of colon polyps. The patient was noncompliant with suggested follow-up surveillance colonoscopy advised for 02/2014. History of hiatal hernia. GI ROS from above & below- negative. There is no chest pain. Troponin 3- negative. Cleared by cardiology for GI workup. Previous celiac serologies, fasting serum carotene and multiple small bowel biopsies-negative. No gross hematuria or hemoptysis. Normal INR. Normal platelets, normal LFTs, including normal albumin:globulin ratio. 70-year-old male, followed by Dr. Jauregui for primary care and Dr. Stein for cardiology, history of EtOH abuse, ASHD post CABG (on occasional outpatient ASA 81 mg daily- not fully compliant, without NSAIDS), HTN/HLD/renal stones (type unknown)/DJD/remote smoker/depression/ history of prostate cancer, treated surgically without RT/hx AVN hips post B/L THR/left partial thyroidectomy reportedly for thyroid cancer/post AP/multifactorial anemia, remotely seen by myself for the time of his *last 02/25/2009 EGD/colonoscopy, which point a benign subcm tubular adenoma was removed (*patient not compliant with suggested follow-up colonoscopy in 02/2014; *never had [facility]). The patient was apparently admitted to [facility] in 2013 for ? recurrent anemia, possibly requiring transfusion vs. plasmapheresis for a neurologic condition then. *The records erroneously state the patient has EtOH cirrhosis, but this is not true. 10/2005: *Low B12, anti-IF Ab- neg, anti-PC Ab- neg, normal folate, normal carotene 175, antigliadin Ab- neg, tTG Ab- neg, normal lipase, H. pylori Ab- neg. 02/23/2009: low iron 15, TIBC 141 (consistent with chronic disease), ferritin 418, normal B12, 1324 (on replacement), normal folate 17.6 02/25/2009: normal IPEP, RBC folate 842 11/2002: Colonoscopy per Dr. Jarvis- benign TA/TVA remved. 01/08/2006: EGD/colonoscopy by myself- no varices, no portal gastropathy, no PUD , HP-negative gastritis, small bowel biopsy-normal villi, mild GERD, no Phillips' s; pandiverticulosis coli, left side > right, random biopsy TI-negative, removal of 2 hyperplastic polyps. 02/25/2009: EGD/colonoscopy to TI by myself- mixed hiatal hernia pouch, Z line at 38 cm, random biopsies D2/D3-normal villi; pandiverticulosis coli, left-sided > right, random biopsy TI-negative, removal of 2 hyperplastic polyps plus subcm benign TA. The patient was admitted to [facility] 06/05/2016 for symptomatic subacute on chronic multifactorial anemia. He had shortness of breath & fatigue which resolved with transfusions, and some edema. There was no chest pain. GI review of systems from above and below her bili negative. There is no pertinent family history. There was no gross hemoptysis, hematuria, or abdominal trauma to suggest retroperitoneal bleeding. The patient was cleared by cardiology preoperatively, with negative troponins. Hematology consult was apparently requested. *EtOH < 10 on admission, with low ferritin 7.5, normal B12/folate. As of 06/08/2016, the patient is asymptomatic. He finished 1 gallon of a Apperian prep at approximately 7 a.m. Stools were OB-negative. There has been no overt GI bleeding, hematemesis, or melena. GI review of systems from above and below are negative. He is hemodynamically stable and afebrile. He denies any chest pain or shortness of breath. He has received 3u PRBC as an inpatient. 06/05/2016: XRY-PORTABLE CHEST XRAY- Small right effusion with associated right basilar infiltrate or atelectasis. Findings may represent evolving pneumonia in the appropriate clinical setting. 06/06/2016: EKG- NSR @ 82, normal axis, NSIVCD, borderline ST depression anterior laterally, NSST *Anemia is chronic, progressive and multifactorial. There is at least a component of iron deficiency. Differential diagnosis includes esophagitis, peptic ulcer disease, Asad's erosions, angiodysplasias, neoplasm, etc. Possible nutritional deficiency with hx EtOH. Iron malabsorption is also the differential. *Previous small bowel biopsies and celiac serologies have been negative. There is no overt bleeding, and indeed stool was found to be Hemoccult negative on admission. There is nothing by history to suggest a retroperitoneal hematoma. Rule out hemolysis. History of B12 deficiency, currently stable. Long-standing alcohol use. The chart states history of cirrhosis; not apparent clinically, nor by laboratory values or by imaging studies (INR, platelets, liver enzymes). Ultrasound in 01/2016 was unrevealing. I doubt that he has cirrhosis. Multiple EGD without varices or portal gastropathy. Resection of colonic adenoma in 2008, without follow-up surveillance (follow-up colonoscopy is advised for 02/2014). Paraesophageal hiatal hernia without dysphagia. The patient has negative troponin 3 and was cleared by cardiology for GI workup. Meds Received: O2- 10L via NRB mask & MAC, as per Dr. Muñiz, of [facility]. Patient's Tolerance: good Complications: None Extent Reached: D3/cecum Procedure: Combined follow-up upper endoscopy to the third portion of the duodenum with random biopsies, plus follow-up colonoscopy to the cecum with biopsies/hot snare polypectomy 1 (done at different sites), were performed with the Olympus high- definition videoscopes from above and below, after obtaining informed consent from the patient for each procedure prior to IV sedation, with the data management manager and pulse oximeter, after 1 gallon of GoLYTELY, with the assistance of Dr. Muñiz, of [facility]. Documenting photographs were obtained from above and below, and placed inside the front cover of the patient's chart. Follow-up upper endoscopy to the third portion of the duodenum with random biopsies, was performed with the Olympus high definition videoendoscope, after obtaining informed consent from the patient, with the data management manager and pulse oximeter, with the assistance of Dr. Muñiz, of [facility]. The patient's dentition was fair preoperatively. A mouthpiece was placed in the usual fashion to protect the patient's teeth. The patient was placed in the left lateral decubitus position and sedated by [facility]. At this point, the endoscope was advanced through the fenestrated hole in the NRB mask, into the mouth, then into the esophagus, using direct visualization technique. The vocal cords appeared normal. The esophageal mucosa appeared normal. There were no esophageal rings, webs, lesions, strictures, or ulcers. There was no monilia or vesicles. There was no esophageal ribbing. The Z line was well demarcated at 39 cm. There was a 3 cm mixed sliding/paraesophageal hiatal hernia pouch, from 39 - 42 cm. There were no Asad erosions. No significant esophageal inflammation was seen. There were no ectopic islands, nor gross Phillips's esophagus. There were no esophageal or gastric varices, nor any Kristie Huerta tear. The reid of the stomach distended normally with air insufflation. Direct and retroflexed views of the stomach were performed. There was nothing endoscopically to suggest gastroparesis or portal gastropathy. The mucosa of the gastric cardia, fundus, lesser curvature, incisura, body, and antrum appeared normal, without any gastric ulcers or gastric lesions. The pylorus was patent, without any gastric outlet obstruction or channel ulcer. The duodenal bulb, duodenal sweep, and third portion of the duodenum appeared normal, without any duodenal ulcers, distal ulcerations, or angiodysplasias. I was not able to see the ampulla with the direct-viewing scope. The folds of the second and third portions of the duodenum were normal in caliber, without any flattening, nodularity, scalloping, or mosaic pattern. Nevertheless, in view of the iron deficiency anemia, repeat random small bowel biopsy 4 of normal- appearing second and third portions of the duodenum were obtained: (Specimen A- rule out malabsorption and/or celiac sprue; celiac serologies-negative as above- iron deficiency most likely nutritional in nature, with history of EtOH). No active upper GI bleeding was seen. The patient tolerated the procedure well. After completing the preliminary follow-up upper endoscopy to the third portion of the duodenum with random biopsies, follow-up colonoscopy to the cecum, with biopsies and hot snare polypectomy 1 (done at different sites), was performed with the Olympus high-definition video colonoscope, after obtaining informed consent from the patient, with the data management manager and pulse oximeter, after 1 gallon of GoLYTELY, with the assistance of Dr. Muñiz, of [facility]. The prep was good. The patient was in the left lateral decubitus position throughout the procedure. Direct views of the rectum failed to reveal any external hemorrhoids, fissures, or perianal disease. Digital rectal exam was unremarkable, without any masses. Sphincter tone was decreased. Retroflexion in the rectum failed to reveal any internal hemorrhoids, gross proctitis, rectal ulcers, or rectal lesions. The colonic mucosa was carefully inspected, both upon insertion and upon withdrawal of the colonoscope. Withdrawal time was certainly adequate. There were extensive pandiverticulosis coli, from the sigmoid up to & including the cecum. There were no strictures. The cecum, base of the appendix, and ileocecal valve were all identified. Confirmatory photographs were obtained. I did not enter the terminal ileum. There was a 1 cm proximal right colon polyp on a tiny stalk, positive by NBI, biopsied then completely removed via hot snare polypectomy, using 25 W/pure coag: (Specimen A) , and retrieved via suction. There was a cluster of 4 adjacent 3 mm sessile sigmoid polyps at 25 cm, negative by NBI, all completely removed via cold biopsies: (collectively, Specimen B). There were 2 adjacent 3 mm sessile rectosigmoid polyps at 15 cm, negative by NBI, both completely removed via cold biopsies: (collectively, Specimen C). All of the above polypectomy sites were irrigated with the water jet, observed for several minutes postoperatively, and were stable, without any active bleeding. The colonic mucosa otherwise appeared intact and within normal limits to the cecum, without any additional polyps, lesions, gross colitis, or angiodysplasias. No active lower GI bleeding was seen. The patient tolerated both procedures well. Documenting photographs from above and below were placed inside the front cover of the patient's chart. Impression: 1. 3 cm mixed sliding/paraesophageal hiatal hernia pouch, from 39-42 cm. Z line at 39 cm. No Asad erosions. 2. Random small bowel biopsy 4 of normal-appearing second and third portions of the duodenum: (Specimen A- rule out malabsorption and/or celiac sprue; celiac serologies- negative as above-*iron deficiency most likely nutritional in nature, with history of EtOH). 3. Extensive pandiverticulosis coli, left side greater than right, from the sigmoid up to & including the cecum. 4. 1 cm proximal right colon polyp on a tiny stalk, positive by NBI, biopsied then completely removed via hot snare polypectomy, using 25 W/pure coag: ( Specimen A). 5. Cluster of 4 adjacent 3 mm sessile sigmoid polyps at 25 cm, negative by NBI, all completely removed via cold biopsies: (collectively, Specimen B). 6. 2 adjacent 3 mm sessile rectosigmoid polyps at 15 cm, negative by NBI, both completely removed via cold biopsies: (collectively, Specimen C). Recommendations: Await repeat random small bowel biopsies of duodenum. Await colon polyp pathology of completely resected polyps (Specimen A- 1 cm proximal right colon polyp on tiny stalk- hot snare, Specimen B- 4 x 3 mm sessile sigmoid polyps at 25 cm- cold bxs, Specimen C- 2 x 3 mm sessile rectosigmoid polyps at 15 cm- cold bxs). The patient was advised to call my office within 2 weeks for pathology results. *Assuming the above colon polyps are benign, depending on the pathology, the patient will need a repeat colonoscopy most likely in 3-5 years ( i.e.- 05/2019 vs. 05/2021), keeping in mind the previous personal history of TA/ TVA. Definitive recommendations for the interval of follow-up colonoscopy will be made after reviewing the pathology. Empiric PPI. Keep Hgb > 8 (hx ASHD). * Outpatient [facility] (the patient has my office number). Replete iron- FeSO4 325 mg po TID with meals. Continue B12 repletion. Discontinue alcohol abuse. Will defer to cardiology regarding baby aspirin 81 mg daily (okay from GI perspective ). No NSAIDS. Consider hemolysis workup as inpt. Consider CT abdomen and pelvis (doubt retroperitoneal hematoma) as inpt. MVI, thiamine, folate. Ativan as needed. CIWA protocol. Follow-up with hematology. The above findings were discussed with the patient & the patient's RN, who will convey the above to the medical house staff. *Further inpatient GI follow up as needed. ADDENDUM: 06/10/2016- A. D2/D3- REPEAT RANDOM DUODENAL BXS X 4: BENIGN DUODENAL MUCOSA. NEGATIVE FOR SIGNIFICANT BLUNTING OF VILLI. Dictated by: CHIDI CHINCHILLA MD A. 1 CM PROXIMAL RIGHT COLON POLYP ON TINY STALK, COMPLETELY REMOVED VIA BX/HOT SNARE POLYPECTOMY: TUBULAR ADENOMA. NEGATIVE FOR INVASIVE CARCINOMA. B. 4 X 3 MM SESSILE SIGMOID POLYPS AT 25 CM, COMPLETELY REMOVED VIA COLD BXS: TUBULAR ADENOMA. BENIGN HYPERPLASTIC POLYP. C. 2 X 3 MM SESSILE RECTOSIGMOID POLYPS AT 15 CM, COMPLETELY REMOVED VIA COLD BXS: BENIGN HYPERPLASTIC POLYP. Dictated by: CHIDI CHINCHILLA MD Random repeat bxs D2/D3- normal villi. 1 cm benign TA resected from proximal right colon. Multiple diminuitive benign hyperplastic rectosigmoid polyps removed, plus a 3 mm benign sigmoid TA. I called the pt 06/10/16 at 6:58 p.m. at [phone], & left him a message regarding the negative repeat random duodenal bxs & the benign colon polyps. I advised a repeat colonoscopy in 3 years (i.e.- 05/2019), in view of the current pathology, also keeping in mind the previous personal history of TA/TVA. Empiric PPI. Keep Hgb > 8 (hx ASHD). Outpatient [facility] (the patient has my office number). Replete iron- FeSO4 325 mg po TID with meals. Continue B12 repletion. Discontinue alcohol abuse. Will defer to cardiology regarding baby aspirin 81 mg daily (okay from GI perspective). No NSAIDS. MVI, thiamine, folate. Follow-up with hematology (doubt hemolysis and /or retroperitoneal bleed clinically). Most likely, the anemia is nutritional in nature & related to EtOH. Follow-up Colonscopy Screening pending biopsy result(s) CC: BOLIVAR HANSON,ALISON James; SHORTY HANSON,NAWAF Benítez; LOIS HANSON,JUSTO; ELVIA HANSON, SANTI; EDOUARD HANSON PhD,[facility].; CRISTOBAL HANSON,VINOD
[2016-06-08 14:30] VITALS: BP 120/60
[2016-06-08 15:50] VITALS: BP 118/62
--- NOTE | 2016-06-08 16:51 | PN- Att Addend ---
Attending MD Review Statement Attending Statement Attending MD Statement: examined this patient, discuss w/resident/PA/RN VASCULAR, agreed w/resident/PA/RN VASCULAR, reviewed EMR data (avail), discussed w/nursing Attending Assessment/Plan: Laboratory Tests 06/08/16 0626: Anion Gap 9, Estimated GFR > 60, BUN/Creatinine Ratio 11.3, CBC w Diff NO MAN DIFF REQ, RBC 3.66 L, MCV 77.0 L, MCH 24.0 L, RDW 23.9 H, MPV 7.9, Gran % 58.3, Lymphocytes % 27.9, Monocytes % 12.9 H, Eosinophils % 0.9, Basophils % 0 L, Absolute Granulocytes 2.8, Absolute Lymphocytes 1.4, Absolute Monocytes 0.6, Absolute Eosinophils 0, Absolute Basophils 0, PUBS MCHC 31.2 L Vital Signs Date Time Temp Pulse Resp B/P Pulse O2 O2 Flow FiO2 Ox Delivery Rate 06/08 1550 97.8 69 20 118/62 93 Room Air 06/08 1430 97.8 64 18 120/60 94 Room Air 06/08 1128 98.0 68 18 128/72 96 Room Air Room Air 06/08 0832 97.9 64 20 134/70 94 Room Air 06/07 2340 98.1 65 20 124/61 93 Room Air 70 yo M with h/o CAD s/p CABG, prostate cancer s/p protatectomy, HTN, RA, chronic pain, alcohol dependence who drinks few beers and emily per week, chronic anemia, B12 deficiency and neuropathy, is here with symptomatic anemia ( exertional dyspnea, palpitations and LE edema over past 1 week). He went to an Urgent care before admission and was noted to have O2 sats in the 70's that improved with oxygen. Pt found to be anemic with hb of 5.4 in ER and was given blood transfusion of 2 Units PRBC, repeat hb is 6.8 on 06/06 and hb on 06/07 is 6.9. Given another Unit of PRBC on 06/07 and hb is stable at 8.8 A/p- Acute symptomatic anemia requiring blood transfusion with low mcv and low serum iron and ferritin suggestive of iron def anemia. Started on iv protonix 40 q12h, GI consulted. monitor h/h q12h and transfuse as needed. EGD and colonoscopy done today shows no acute source of bleeding. Will f./u on GI recommendations. Echo done reviewed and shows severe pulm htn . cardiology following. If no further workup needed inpatient will dc pt on iron pills. d/w pt the care plan.
[2016-06-08 17:59] VITALS: BP 127/69
--- NOTE | 2016-06-08 19:58 | PN- Cardiology ---
Subjective Subjective: * Breathing is improving post transfusion. No chest discomfort. Objective Vital Signs and I&Os Vital Signs Date Time Temp Pulse Resp B/P Pulse O2 O2 Flow FiO2 Ox Delivery Rate 06/08 1759 97.5 77 20 127/69 93 06/08 1550 97.8 69 20 118/62 93 Room Air 06/08 1430 97.8 64 18 120/60 94 Room Air 06/08 1128 98.0 68 18 128/72 96 Room Air Room Air 06/08 0832 97.9 64 20 134/70 94 Room Air 06/07 2340 98.1 65 20 124/61 93 Room Air Intake & Output 06/08 1600 06/08 0800 06/08 0000 06/07 1600 06/07 0800 06/07 0000 Intake Total 300 2000 1150 300 800 Output Total 700 825 350 Balance -923 048 8025 325 300 450 Intake, Blood 350 Product Intake, Oral 300 2000 800 300 800 Number 1 3 0 1 Bowel Movements Output, Urine 700 825 350 Patient 175 lb Weight Physical Exam: General: WD/ WN male in NAD; alert and oriented x 3 Neck: no JVD Heart: RRR with 2/6 systolic murmur Lungs: clear bilaterally Extremities: no edema Assessment/Plan Assessment/Plan * This patient has evidence of diastolic dysfunction and increased RV pressures. Nevertheless, his acute decompensation is likely the end result of severe anemia. This patient should be on an enteric coated aspirin at 81mg daily and Atrorvastatin 80mg daily. Would also begin Metoprolol 25mg BID. Continue telemetry? Not applicable
[2016-06-08 23:20] VITALS: BP 128/70
[2016-06-09] MEDS ORDERED: FERROUS SULFAT325 M2 PO (08:14)
[2016-06-09] MEDS ORDERED: METOPROLOL TART25 M1 PO (08:14)
[2016-06-09 08:17] LABS: HEMATOCRIT 25.4 % (42-52); MEAN CORPUSCULAR HGB 24.5 PG (27.0-31.0); MEAN CORPUSCULAR HGB CONC 31.9 G/DL (33.0-37.0); MEAN CORPUSCULAR VOLUME 76.8 FL (80.0-94.0); MEAN PLATELET VOLUME 7.8 FL (7.4-10.4); PLATELET COUNT 250 /CUMM (130-400); RBC DISTRIBUTION WIDTH 23.9 % (11.5-14.5); WHITE BLOOD CELL COUNT 4.9 /CUMM (4.8-10.8)
--- NOTE | 2016-06-09 08:25 | Patient Discharge Instructions ---
Discharge Instructions General Discharge Information You were seen/treated for: symptomatic anemia Special Instructions: Please follow up with your Primary care within 1 week Please follow up with Dr Landin within 1 week Please abstain from drinking alcohol Please continue taking Iron pills as directed and the metoprolol Please seek immediate medical attention if you notice an bleeding or you have shortness of breath or chest pain Acute Coronary Syndrome Inclusion Criteria At DC or during hospital stay patient has or had the following: ACS DIAGNOSIS No Discharge Core Measures Meds if any: Prescribed or Continued at Discharge Meds if any: NOT Prescribed or Continued at Discharge Congestive Heart Failure Inclusion Criteria At DC or during hospital stay patient has or had the following: CHF DIAGNOSIS No Discharge Core Measures Meds if any: Prescribed or Continued at Discharge Meds if any: NOT Prescribed or Continued at Discharge Cerebrovascular accident Inclusion Criteria At DC or during hospital stay patient has or had the following: CVA/TIA Diagnosis No Discharge Core Measures Meds if any: Prescribed or Continued at Discharge Meds if any: NOT Prescribed or Continued at Discharge Venous thromboembolism Inclusion Criteria VTE Diagnosis No VTE Type NONE VTE Confirmed by (Test) NONE Discharge Core Measures - Per Current guidelines, there needs to be overlap - treatment for the first 5 days of Warfarin therapy. - If discharged on Warfarin prior to 5 days of - overlap therapy, the patient will need to be - assessed for post discharge needs including - *Post discharge parental anticoagulation - *Warfarin and/or parental anticoagulation education - *Follow up date to check INR post discharge At least 5 days overlap therapy as Inpatient No Meds if any: Prescribed or Continued at Discharge Note: Overlap Therapy is Warfarin and Anticoagulant Meds if any: NOT Prescribed or Continued at Discharge
[2016-06-09 08:27] VITALS: BP 120/60
--- NOTE | 2016-06-09 09:35 | PN- Hematology ---
Subjective Subjective: He feels well without new symptoms. He underwent endoscopy with EGD and colonoscopy yesterday. No obvious bleeding was noted. No mass was found. He has no fever or chills. He has no nausea or vomiting. Review of Systems Constitutional: Denies: chills, fever. Cardiovascular: Denies: chest pain, palpitations. Respiratory: Denies: cough, short of breath. Gastrointestinal: Denies: abdominal pain. Genitourinary: Denies: hematuria. Hematologic/Endocrine: Denies: bruising, bleeding. All Other Systems: Reviewed and Negative Objective Vital Signs and I&Os Vital Signs Date Time Temp Pulse Resp B/P Pulse O2 O2 Flow FiO2 Ox Delivery Rate 06/09 0827 98.0 55 18 120/60 92 Room Air 06/08 2320 97.4 72 20 128/70 94 Room Air 06/08 2252 80 128/74 06/08 1759 97.5 77 20 127/69 93 06/08 1550 97.8 69 20 118/62 93 Room Air 06/08 1430 97.8 64 18 120/60 94 Room Air 06/08 1128 98.0 68 18 128/72 96 Room Air Room Air Intake & Output 06/09 1600 06/09 0800 06/09 0000 06/08 1600 06/08 0800 06/08 0000 Intake Total 260 585 524 7294 Output Total 450 700 Balance 260 350 -691 619 1053 Intake, IV 20 Intake, Oral 240 240 798 6814 Number 1 3 Bowel Movements Output, Urine 450 700 Patient 79.379 kg Weight Physical Exam: General Appearance: well developed/nourished, no apparent distress, alert, awake , comfortable Head: atraumatic, normal appearance Ears, Nose, Throat: normal pharynx, normal ENT inspection Respiratory: normal breath sounds, chest non-tender, no respiratory distress Cardiovascular: regular rate/rhythm, murmur, systolic murmur Gastrointestinal: normal bowel sounds, soft, non-tender, no organomegaly Back: normal inspection Extremities: pedal edema Neurologic/Psych: alert, oriented x 3 Skin: warm/dry, rash (left anterior neck) Current Medications: Current Medications Sig/Kim Start time Last Medication Dose Route Stop Time Status Admin Acetaminophen 650 MG Q6-PRN PRN 06/06 0215 AC PO Aspirin Buffered 81 MG DAILY 06/09 1000 AC PO Atorvastatin Calcium 80 MG 1700 06/09 1700 AC PO Chlorhexidine 2 GM .STK-MED ONE 06/08 1500 DC Gluconate TOP 06/08 1501 Ferrous Sulfate 325 MG TID 06/08 1000 AC 06/08 PO 2252 Ferrous Sulfate 325 MG BID 06/06 1050 DC 06/08 PO 0807 Gabapentin 600 MG Q6 06/07 1200 AC 06/09 PO 0554 Metoprolol Tartrate 25 MG BID 06/08 2200 AC 06/08 PO 2252 Morphine Sulfate 15 MG ONCE ONE 06/09 0815 DC PO 06/09 0816 Morphine Sulfate 2 MG Q6P PRN 06/06 0200 AC 06/09 IV 0643 Oxycodone HCl 10 MG 4 TIMES/DAY PRN 06/06 0830 AC 06/09 PO 0555 Pantoprazole Sodium 40 MG Q12 06/06 1049 AC 06/08 IV 2252 Sertraline HCl 100 MG DAILY 06/06 1000 AC 06/08 PO 0807 Zolpidem Tartrate 5 MG .STK-MED ONE 06/08 1524 DC PO 06/08 1525 Zolpidem Tartrate 5 MG AT BEDTIME 06/07 2200 AC 06/08 PO 2252 Results Last 24 Hours of Lab Results: Laboratory Tests 06/09 0622 Chemistry Sodium (137 - 145 mmol/L) 139 Potassium (3.5 - 5.1 mmol/L) 4.0 Chloride (98 - 107 mmol/L) 107 Carbon Dioxide (22 - 30 mmol/L) 26 Anion Gap (5 - 16) 7 BUN (9 - 20 mg/dL) 10 Creatinine (0.7 - 1.2 mg/dL) 0.8 Estimated GFR (>60 ml/min) > 60 BUN/Creatinine Ratio (7 - 25 %) 12.5 Hematology CBC w Diff MAN DIFF ORDERED WBC (4.8 - 10.8 /CUMM) 4.9 RBC (4.70 - 6.10 /CUMM) 3.30 L Hgb (14.0 - 18.0 G/DL) 8.1 L Hct (42 - 52 %) 25.4 L MCV (80.0 - 94.0 FL) 76.8 L MCH (27.0 - 31.0 PG) 24.5 L RDW (11.5 - 14.5 %) 23.9 H Plt Count (130 - 400 /CUMM) 250 MPV (7.4 - 10.4 FL) 7.8 Segmented Neutrophils (42.2 - 75.2 %) 61 Lymphocytes (20.5 - 51.1 %) 28 Monocytes (1.7 - 9.3 %) 9 Eosinophils (0 - 5.0 %) 2 Platelet Estimate (ADEQUATE) VERIFIED BY SMEAR Hypochromic-Microcytic 1+ Poikilocytosis 1+ Anisocytosis 1+ Microcytic Cells 1+ PUBS MCHC (33.0 - 37.0 G/DL) 31.9 L Assessment/Plan Assessment/Recommendations: Mr. Vyas is a 70-yo male with prostate ca s/p prostatectomy, CAD s/p CABG, HTN, alcohol usage, and anemia who presented with shortness of breath, palpitation, chest pain, and anemia. His hemoglobin was noted to be 5.4 g/dL. Iron studies was notable for ferritin of 7.5, iron of 15, and TIBC 388. His vitamin B12 and folate level were normal. He is now on oral repletion. He has also received 3 units pRBC transfusion. Endoscopy with EGD and colonoscopy were negative for obvious mass or bleeding. Iron studies on admission suggest an iron deficiency picture. In addition, his alcohol usage is concerning for acute myelosuppression. He was advised to cut back and ultimately quit drinking alcohol. Recommendations: 1. Continue Ferrous sulfate 325 mg TID 2. Continue vitamin b12 supplementation 3. Advise alcohol cessation Please call [phone] with any questions or concerns. Problem List: 1. Iron deficiency 2. Symptomatic anemia 3. Anemia
--- NOTE | 2016-06-09 09:47 | PN- Housestaff ---
Subjective Follow-up For: Symptomatic anemia Subjective: Patient seen and examined at bedside. Postprocedure day 1 upper and lower endoscopy with no unremarkable finding suggestive of active bleed. She is not endorsing any acute complaint including chest pain, palpitation, shortness of breath, dizziness, fever, chills, GI bleeding, abdominal pain, nausea or vomiting. No acute overnight event reported by nursing staff Review of Systems Constitutional: Reports: no symptoms. Objective Last 24 Hrs of Vital Signs/I&O Vital Signs Date Time Temp Pulse Resp B/P Pulse O2 O2 Flow FiO2 Ox Delivery Rate 06/09 1004 64 110/56 06/09 0827 98.0 55 18 120/60 92 Room Air 06/08 2320 97.4 72 20 128/70 94 Room Air 06/08 2252 80 128/74 Intake & Output 06/09 1600 06/09 0800 06/09 0000 Intake Total 960 260 800 Output Total 450 Balance 960 260 350 Intake, IV 20 Intake, Oral 960 240 800 Output, Urine 450 Physical Exam General Appearance: Alert, Oriented X3, Cooperative Skin: No Significant Lesion HEENT: Atraumatic, PERRLA Cardiovascular: Regular Rate, Normal S1, Normal S2 Lungs: Clear to Auscultation, Normal Air Movement Abdomen: Normal Bowel Sounds, Soft, No Tenderness, No Hepatospenomegaly Neurological: Normal Speech, Normal Tone, Sensation Intact Extremities: No Clubbing, No Cyanosis, No Edema, Normal Pulses Vascular: Normal Pulses, Pulses Symmetrical Assessment/Plan Assessment: Pt is a 70 yo M with h/o CAD s/p CABG, prostate cancer s/p protatectomy, HTN, RA , chronic pain, alcohol dependence, chronic anemia, B12 deficiency and neuropathy, is here with symptomatic anemia (exertional dyspnea, palpitations and LE edema over past 1 week). She was noted to have a low hemoglobin level and was transfused 2 units during admission date. Assessment and plan Acute on chronic anemia status post 3 units of PRBC during hospital stay, with stable H&H for the past 2 days. Patient is currently a symptomatic. Upper and lower endoscopy was unremarkable for any significant bleeding. Most likely etiology of patient's anemia is his severe iron deficiency exacerbated by noncompliance of oral iron therapy. It should be noted that his chronic alcohol use is a confounding variable in his anemia as alcohol can have some effect of suppressing hematopoietic cell production. Plan We'll discharge today with Rx for ferrous sulfate 325 mg by mouth 3 times a day. Encourage patient to get vcyi-fle-oncanop vitamin C and supplements daily to improve iron absorption. Reiterated the need for patient to consider cessation of alcohol abuse. #Acute hypoxia Resolved as hemoglobin and hematocrit levels improved patient is able to saturate well on room air and not have any acute complaints of shortness of breath. #History of CAD That a metoprolol 25 mg twice a day. Due to patient's aspirin 81 mg enteric- coated (cleared by GI), and atorvastatin 80 mg. Problem List: 1. Symptomatic anemia Pain Ratin Pain Location: Lower extremities Pain Goal: Pain 4 or less Pain Plan: Pain pathway Tomorrow's Labs & Rationales: None) patient scheduled for discharge today
[2016-06-09 10:04] VITALS: BP 110/56
--- NOTE | 2016-06-09 15:28 | PN- Cardiology ---
Subjective Subjective: * Overall this patient feels better than he did upon admission. He did become short of breath taking a shower. * Moderate anemia persists with a slight drop in his H/H. No source of bleeding has been found at this time. Objective Vital Signs and I&Os Vital Signs Date Time Temp Pulse Resp B/P Pulse O2 O2 Flow FiO2 Ox Delivery Rate 06/09 1004 64 110/56 06/09 0827 98.0 55 18 120/60 92 Room Air 06/08 2320 97.4 72 20 128/70 94 Room Air 06/08 2252 80 128/74 06/08 1759 97.5 77 20 127/69 93 06/08 1550 97.8 69 20 118/62 93 Room Air Intake & Output 06/09 1600 06/09 0800 06/09 0000 06/08 1600 06/08 0800 06/08 0000 Intake Total 960 260 486 466 6503 Output Total 450 700 Balance 960 260 350 -453 801 5427 Intake, IV 20 Intake, Oral 960 240 657 502 8477 Number 1 3 Bowel Movements Output, Urine 450 700 Patient 175 lb Weight Physical Exam: General: WD/ WN male in NAD; alert and oriented x 3 Neck: no JVD Heart: RRR with 2/6 systolic murmur Lungs: clear bilaterally Extremities: no edema Assessment/Plan Assessment/Plan * This patient has evidence of diastolic dysfunction and increased RV pressures. He was started on a beta dez and is tolerating it well. His shortness of breath is likely multifactorial and due to his MR, diastolic dysfunction, high RV pressures and anemia. Continue enteric coated aspirin at 81mg daily, Atrorvastatin 80mg daily and Metoprolol 25mg BID. Follow up in the office in one week. Continue telemetry? Not applicable
--- NOTE | 2016-06-09 16:16 | PN- Att Addend ---
Attending MD Review Statement Attending Statement Attending MD Statement: examined this patient, discuss w/resident/PA/[facility], agreed w/resident/PA/[facility], reviewed EMR data (avail), discussed w/nursing Attending Assessment/Plan: Laboratory Tests 06/09/16 0622: Anion Gap 7, Estimated GFR > 60, BUN/Creatinine Ratio 12.5, CBC w Diff MAN DIFF ORDERED, RBC 3.30 L, MCV 76.8 L, MCH 24.5 L, RDW 23.9 H, MPV 7.8, Segmented Neutrophils 61, Lymphocytes 28, Monocytes 9, Eosinophils 2, Platelet Estimate VERIFIED BY SMEAR, Hypochromic-Microcytic 1+, Poikilocytosis 1+, Anisocytosis 1+ , Microcytic Cells 1+, PUBS MCHC 31.9 L Vital Signs Date Time Temp Pulse Resp B/P Pulse O2 O2 Flow FiO2 Ox Delivery Rate 06/09 1004 64 110/56 06/09 0827 98.0 55 18 120/60 92 Room Air 06/08 2320 97.4 72 20 128/70 94 Room Air 06/08 2252 80 128/74 06/08 1759 97.5 77 20 127/69 93 70 yo M with h/o CAD s/p CABG, prostate cancer s/p protatectomy, HTN, RA, chronic pain, alcohol dependence who drinks few beers and emily per week, chronic anemia, B12 deficiency and neuropathy, is here with symptomatic anemia ( exertional dyspnea, palpitations and LE edema over past 1 week). He went to an Urgent care before admission and was noted to have O2 sats in the 70's that improved with oxygen. Pt found to be anemic with hb of 5.4 in ER and was given blood transfusion of 2 Units PRBC, repeat hb is 6.8 on 06/06 and hb on 06/07 is 6.9. Given another Unit of PRBC on 06/07 and hb is stable at 8.8 A/p- Acute symptomatic anemia requiring blood transfusion with low mcv and low serum iron and ferritin suggestive of iron def anemia. Started on iv protonix 40 q12h, GI consulted. monitor h/h q12h and transfuse as needed. EGD and colonoscopy done today shows no acute source of bleeding. Will f./u on GI recommendations. Echo done reviewed and shows severe pulm htn . cardiology following. Will dc pt on iron pills today and will cont on prilosec. pt was insturcted to quit drinking . d/w pt the care plan.
--- NOTE | 2016-06-09 19:10 | Discharge Summary ---
See Addendum Visit Information Visit Dates Admission Date: 06/05/16 Discharge Date: 06/09/16 Hospital Course Course Attending Physician: BOLIVAR HANSON,ALISON James Primary Care Physician: NAWAF ORO MD Hospital Course: This is a 70 yo gentleman with h/o CAD s/p CABG, prostate cancer s/p protatectomy, HTN, RA, chronic pain, alcohol dependence, chronic anemia, B12 deficiency and neuropathy, presented with symptomatic anemia (exertional dyspnea , palpitations and LE edema over past 1 week). He went to an Urgent care the same day and was noted to have O2 sats in the 70's that improved with oxygen. Last EGD/colonoscopy (2008) - hiatal hernia, no varices, diverticulosis and polyps (tubular/hyperplastic). He did not have a follow up colonoscopy. He reported being admitted to [facility] 2 yrs ago and being transfused blood products but does not know why. He denied any bleeding of clotting disorders. He continued to consume alcohol almost every alternate day. VS on prsentaion: Stable and unremarkable. Exam: pallor++, no JVD, Chest b/l clear, Heart S1S2 regular, systolic murmur+, Abd soft, NT. LE: b/l 1+ pitting edema. Labs:H/H 5.4/17.7 (8.1/26.25 Jan 2016), microcytosis with elevated RDW, INR normal, trop neg, proBNP elevated. UA neg. S. Alcohol < 10. CXR small right effusion with right basilar infiltrate or atelectasis. EKG: SR. Rectal exam: guaiac neg brown stool. Orthostats negative. Pt was admitted to general medicine for evaluation and manaagement of symptomatic anemia. Pt was discharged on the fifth day of hospitalization after his H&H was deemed stable and U/L endoscopies were unremarkable for any acute bleed. The following issues were addressed during hospitalization: #Symptomatic anemia Patient received a total of 3 units of PRBC during hospital stay, with symptomatic relief noted post infusion. His anemia was viewed to be multifactorial as patient had chronic DUGLAS which he was not compliant with iron therapy, patient also had a B-12 deficiency, and his daily Etoh abuse most likely contributed to some degree of myelosuppresion (retic count was elevated but not appropriately to his degree of anemia). Pt was started on Ferrous sulfate 325mg tid. GI was consulted and upper and low endoscopy performed which was remarkable for lower GI polyps, but with no obvious acute source of bleed noted (please see procedure part for more details). Patient did not have any episodes of acute bleeding during hospital stay and his H&H was stable >8 during discharge. Pt was instructed by medical team and Dr Moeller (GI) to f/u for possible outpatient [facility] with GI services (Dr Bermudez contact info was provided). #Elevated RV pressure/Pulmonary Hypetension Cardiology was consulted to review any possibility of high output failure in the setting of remarkable symptomatic anemia. An echocardiogram was obtained whic was remarkable for diastolic dysfunction and increased RV pressures. His findings could be attributed to the acute deompensation of his severe anemia. Based on cardiology reccomendation, he was started on an enteric coated aspirin at 81mg daily, Atrorvastatin 80mg daily, and Metoprolol 25mg BID. Allergies: Coded Allergies: No Known Allergies (01/27/16) Significant Procedures: Upper Endoscopy: The esophageal mucosa appeared normal. There were no esophageal rings, webs, lesions, strictures, or ulcers. There was no monilia or vesicles. There was no esophageal ribbing. The Z line was well demarcated at 39 cm. There was a 3 cm mixed sliding/paraesophageal hiatal hernia pouch, from 39 - 42 cm. There were no Asad erosions. No significant esophageal inflammation was seen. There were no ectopic islands, nor gross Phillips's esophagus. There were no esophageal or gastric varices, nor any Kristie Huerta tear. The reid of the stomach distended normally with air insufflation. Direct and retroflexed views of the stomach were performed. There was nothing endoscopically to suggest gastroparesis or portal gastropathy. The mucosa of the gastric cardia, fundus, lesser curvature, incisura, body, and antrum appeared normal, without any gastric ulcers or gastric lesions. The pylorus was patent, without any gastric outlet obstruction or channel ulcer. The duodenal bulb, duodenal sweep, and third portion of the duodenum appeared normal, without any duodenal ulcers, distal ulcerations, or angiodysplasias. I was not able to see the ampulla with the direct-viewing scope. The folds of the second and third portions of the duodenum were normal in caliber, without any flattening, nodularity, scalloping, or mosaic pattern. COLONOSCOPY: ADDENDUM: 06/10/2016- A. 1 CM PROXIMAL RIGHT COLON POLYP ON TINY STALK, COMPLETELY REMOVED VIA BX/HOT SNARE POLYPECTOMY: TUBULAR ADENOMA. NEGATIVE FOR INVASIVE CARCINOMA. B. 4 X 3 MM SESSILE SIGMOID POLYPS AT 25 CM, COMPLETELY REMOVED VIA COLD BXS: TUBULAR ADENOMA. BENIGN HYPERPLASTIC POLYP. C. 2 X 3 MM SESSILE RECTOSIGMOID POLYPS AT 15 CM, COMPLETELY REMOVED VIA COLD BXS: BENIGN HYPERPLASTIC POLYP. Dictated by: CHIDI CHINCHILLA MD EXAM TYPE: CARD - ECHOCARDIOGRAM SERVICE DATE: 06/07/16- LENNOX MCINTOSH Age: 70 : 1945 Gender: M Exam Date: 06/07/2016 11:21 Exam Location: [address] [place] [address] Ht (in): 68 Wt (lb): 175 BSA: 1.97 BP: 113 / 62 Ordering Physician: PRIYA SIEGEL MD Referring Physician: Damian Stein MD, PhD Technologist: Kasandra Villanueva [facility] Room Number: 214 Indications: SHORTNESS OF BREATH Rhythm: Sinus Technical Quality: good FINDINGS Left Ventricle Normal left ventricular size with mild left ventricular hypertrophy. Normal systolic function with no obvious regional wall motion abnormalities. Diastolic filling pattern is consistent with restrictive hemodynamics. The ejection fraction is visually estimated at 60%. Right Ventricle The right ventricle is normal in size and function. Right Atrium The right atrium is normal in size. Left Atrium The left atrium is markedly enlarged. The interatrial septum is intact. Mitral Valve The mitral valve demonstrates mild posterior annular calcification with normal function. There is mild to moderate eccentric mitral regurgitation. Aortic Valve Mildly scleroticl aortic valve without significant stenosis. There is no aortic regurgitation. Tricuspid Valve The tricuspid valve is normal in structure and function. There is mild tricuspid regurgitation. Pulmonary artery systolic pressure is moderate to severely elevated to 60mmHg. Pulmonic Valve Structurally normal pulmonic valve. There is mild pulmonic regurgitation. Pericardium Normal pericardium without effusion. No pleural effusion. Great Vessels Normal aortic root dimension. The aortic arch and great vessels are well seen and are normal. CONCLUSIONS 1. Normal EF of 60% with restrictive hemodynamics. 2. Mild left ventricular hypertrophy. 3. Markedly enlarged left atrium. 4. Mild to moderate mitral regurgitation. 5. Mild tricuspid regurgitation. 6. Mild pulmonic insufficiency. 7. Moderate to severe pulmonary hypertension. Damian Stein M.D. (Electronically Signed) Disposition Summary Disposition Principal Diagnosis: Sympotamic Acute on Chronic Anemia Additional Diagnosis: Pulmonary Hypertension Discharge Disposition: home or self care Discharge Instructions General Discharge Information Code Status: Full Code Patient's Diet: Heart Healthy Patient's Activity: As tolerated Follow-Up Instructions/Appts: Pt to f/u with GI Medications at Discharge Discharge Medications: Stop taking the following medications: Hydroxychlorquine (Plaquenil) 200 MG TABLET ORAL TWICE DAILY Prednisone (Prednisone) 10 MG TABLET ORAL DAILY Continue taking these medications: Aspirin (Ecotrin*) 81 MG TABLET. 1 Tablet ORAL DAILY Comments: Last Taken: 06/09/16 Time: 10:00 AM Atorvastatin Calcium (Lipitor) 80 MG TABLET 1 Tablet ORAL DAILY Comments: NOT RECEIVE WHILE IN HOSPITAL Oxycodone HCl (Oxycodone HCl) 10 MG TABLET 1 Tablet ORAL 4 TIMES A DAY Comments: Last Taken: 06/09/16 Time: 12:15 PM Gabapentin (Gabapentin) 600 MG TABLET 1 Tablet ORAL 4 TIMES A DAY Comments: Last Taken: 06/09/16 Time: 12:00 PM Morphine Sulfate (Morphine Sulfate ER) 15 MG TABLET.ER 1 Tablet ORAL THREE TIMES DAILY Comments: Last Taken: 06/09/16 Time: 10:00 AM Sertraline HCl (Zoloft) 100 MG TABLET 1 Tablet ORAL DAILY Comments: Last Taken: 06/09/16 Time: 10:00 AM Pantoprazole Sodium (Protonix) 40 MG TABLET. 1 Tablet ORAL DAILY Comments: Last Taken: 06/09/16 Time: 10:00 AM Folic Acid (Folic Acid) 1 MG TABLET 1 Milligram ORAL DAILY Qty = 30 Comments: NOT RECEIVED WHILE IN HOSPITAL Multivitamin (One Daily Multivitamin) 1 EACH TABLET 1 Tablet ORAL DAILY Qty = 30 Comments: NOT RECEIVED WHILE IN HOSPITAL Start taking the following new medications: Ferrous Sulfate (Ferrous Sulfate) 325 MG (65 MG IRON) TABLET. 325 Milligram ORAL THREE TIMES DAILY Qty = 90 No Refills Comments: Last Taken: 06/09/16 Time: 10:00 AM Metoprolol Tartrate (Metoprolol Tartrate) 25 MG TABLET 25 Milligram ORAL TWICE DAILY Qty = 60 No Refills Comments: Last Taken: 06/09/16 Time: 10:00 AM Copies To: SHORTY HANSON,NAWAF Benítez
== END 2016-06-09 15:55 | DRG 812 ==
LOC: ENRESERVTM → ENRESERVDT → ERH 20:11 → ERHI 21:36 → 2NB 21:36 → ENPENDDIS 21:36 → 2NB 06-06 00:41
PROVIDERS: Pediatrics; Student in an Organized Health Care Education/Training Program; ADMIT Student in an Organized Health Care Education/Training Program
PROC: 30233N1 Transfusion of Nonautologous Red Blood Cells into Peripheral Vein, Percutaneous Approach (ICD-10-PCS; principal; 2016-06-05)
PROC: 0DBF8ZX Excision of Right Large Intestine, Via Natural or Artificial Opening Endoscopic, Diagnostic (ICD-10-PCS; 2016-06-08)
PROC: 0DBN8ZX Excision of Sigmoid Colon, Via Natural or Artificial Opening Endoscopic, Diagnostic (ICD-10-PCS; 2016-06-08)
PROC: 0DB98ZX Excision of Duodenum, Via Natural or Artificial Opening Endoscopic, Diagnostic (ICD-10-PCS; 2016-06-08)
DX: D64.9 Anemia, unspecified (principal); I11.0 Hypertensive heart disease with heart failure; I50.9 Heart failure, unspecified; I25.10 Atherosclerotic heart disease of native coronary artery without angina pectoris; F10.20 Alcohol dependence, uncomplicated; E53.8 Deficiency of other specified B group vitamins; Z85.46 Personal history of malignant neoplasm of prostate; Z85.850 Personal history of malignant neoplasm of thyroid; Z87.891 Personal history of nicotine dependence; Z95.1 Presence of aortocoronary bypass graft; M19.90 Unspecified osteoarthritis, unspecified site; R09.02 Hypoxemia
CPT/HCPCS: 2NBP; ERO; 36415; 81003; 82436; 86920; 88305; 93005; 93010; 93306; 96374; 99291; G0480; J0696; J1940; J2270; P9016

== ENCOUNTER 2016-06-30 18:47 | Inpatient (IN) | payer OTHER, MEDICARE ==
[~2016-06-30] VITALS: Ht 172.7 cm; Wt 74.8 kg
[~2016-06-30 18:47] MED LIST changes: +FERROUS SULFAT325 M2 PO; +METOPROLOL TART25 M1 PO
--- NOTE | 2016-06-30 19:03 | NUR ---
Informed waiting has been performed.
--- NOTE | 2016-06-30 19:03 | NUR ---
TRIAGE: PT TO ER C/C BILATERAL FEET PAIN, RT KNEE PAIN, SOB. ALSO COMPLAINS OF SWELLING TO RT KNEE X 3 DAYS. ALSO HAS HAD A CUT TO THE SAME LEG X ABOUT A WEEK, UNSURE WHAT HE CUT IT ON. HAD EKG IN ETOILE PRIOR TO TRIAGE.
--- NOTE | 2016-06-30 19:10 | ED GENERAL ADULT ---
History of Present Illness General Chief Complaint: Dyspnea (COPD, CHF, Other) Stated Complaint: SOB,SWOLLEN L LEG Source: patient, family, old records Exam Limitations: poor historian Vital Signs & Intake/Output Vital Signs & Intake/Output Vital Signs Date Time Temp Pulse Resp B/P Pulse O2 O2 Flow FiO2 Ox Delivery Rate 06/30 2113 98.9 86 18 100/68 98 Room Air 07/01 2043 100/58 06/30 2026 97 Room Air 06/30 2022 92/60 06/30 1950 78/50 06/308 97.8 60 20 99/57 93 Room Air Allergies Coded Allergies: No Known Allergies (06/30/16) Triage Note: TRIAGE: PT TO ER C/C BILATERAL FEET PAIN, RT KNEE PAIN, SOB. ALSO COMPLAINS OF SWELLING TO RT KNEE X 3 DAYS. ALSO HAS HAD A CUT TO THE SAME LEG X ABOUT A WEEK, UNSURE WHAT HE CUT IT ON. HAD EKG IN [place] PRIOR TO TRIAGE. Triage Nurses Notes Reviewed? yes HPI: Patient is a 70-year-old male presents for evaluation of right lower extremity swelling and redness, dyspnea, chest pain with exertion. Symptoms for approximately one week, worsening over the past 2-3 days. Patient was discharged approximately 3 weeks ago after an admission for symptomatic anemia. Patient denies any abnormal bleeding, has been having normal bowel movements with no melena or hematochezia. Chest pain with walking short distances. No chest pain currently. Patient denies cough, fevers, chills. (DELMY MARIN,MEGAN) Reconcile Medications Atorvastatin Calcium (Lipitor) 80 MG TABLET 1 TAB PO DAILY CHOLESTEROL ( Reported) Cholecalciferol (Vitamin D3) (Vitamin D) 1,000 UNIT TABLET 1 TAB PO DAILY VITAMIN (Reported) Cyanocobalamin (Vitamin B-12) (Vitamin B-12) 500 MCG TABLET 1 TAB PO DAILY VITAMIN (Reported) Ferrous Sulfate 325 MG (65 MG IRON) TABLET.DR 325 MG PO TID ANEMIA Folic Acid 1 MG TABLET 1 MG PO DAILY SUPPLEMENT Gabapentin 600 MG TABLET 1 TAB PO 4 TIMES/DAY PAIN CONTROL (Reported) Metoprolol Tartrate 25 MG TABLET 25 MG PO BID HEART Morphine Sulfate (Morphine Sulfate ER) 15 MG TABLET.ER 1 TAB PO TID PAIN ( Reported) Multivitamin (One Daily Multivitamin) 1 EACH TABLET 1 TAB PO DAILY SUPPLEMENT Oxycodone HCl 10 MG TABLET 1 TAB PO 4 TIMES/DAY PAIN (Reported) Pantoprazole Sodium (Protonix) 40 MG TABLET.DR 1 TAB PO DAILY GI (Reported) Sertraline HCl (Zoloft) 100 MG TABLET 1 TAB PO DAILY MENTAL HEALTH (Reported) Zolpidem Tartrate (Ambien) 5 MG TABLET 1 TAB PO QPMP PRN INSOMNIA (Reported) (MONA HANSON,DUSTY Shelley) Past History Travel History Traveled to [place] past 21 day No Medical History Any Pertinent Medical History? see below for history Neurological: NONE EENT: NONE Cardiovascular: CAD, hypertension Respiratory: NONE Gastrointestinal: NONE Hepatic: NONE Renal: nephrolithiasis Musculoskeletal: chronic back pain, osteoarthritis Psychiatric: depression Endocrine: PARTIAL THYROIDECTOMY Blood Disorders: anemia, B12 deficiency Cancer(s): prostate cancer COMBAT SYSTEMS OPERATOR/Reproductive: NONE History of MRSA: No History of VRE: No History of CDIFF: No Influenza Vaccine: 02/22/16 Surgical History Surgical History: CABG, prostatectomy, BILAT HIP REPLACEMENT BILAT CATARACT SX PARTIAL THYROIDECTOMY APPENDECTOMY Psychosocial History Who do you live with Spouse Services at Home None What is your primary language Divehi Tobacco Use: Quit >30 days ago ETOH Use: occasional use Illicit Drug Use: "THAT'S PROBABLY A PRIVACY ISSUE" Family History Family History, If Any: FATHER FH: prostate cancer Hx Contributory? No (MEGAN NAVARRO) Review of Systems Review of Systems Constitutional: Reports: malaise, weakness. Denies: chills, fever. EENTM: Reports: no symptoms. Respiratory: Reports: short of breath. Denies: cough. Cardiovascular: Reports: chest pain (with exertion), peripheral edema (RLE). Denies: orthopena. GI: Denies: abdominal pain, nausea, bloody stool, vomiting. Genitourinary: Reports: no symptoms. Musculoskeletal: Reports: back pain (chronic, unchanged). Skin: Reports: erythema (RLE). Neurological/Psychological: Denies: headache, numbness. Hematologic/Endocrine: Denies: bleeding. Immunologic/Allergic: Denies: splenectomy. (MEGAN ANVARRO) Physical Exam Physical Exam General Appearance: alert, awake Head: atraumatic, normal appearance Eyes: Bilateral: normal appearance, PERRL, EOMI. Ears, Nose, Throat: hearing grossly normal Neck: normal inspection, supple, full range of motion Respiratory: no respiratory distress, lungs clear Cardiovascular: regular rate/rhythm Gastrointestinal: normal bowel sounds, soft, non-tender, UMBILICAL HERNIA, SOFT, EASILY REDUCIBLE Back: normal inspection, normal range of motion Extremities: right leg erythema, warmth, 2+ edema. Scabbed over wound to the right pretibial area. No edema to the left lower extremity Neurologic/Psych: awake, alert, oriented x 3 Skin: erythema to the right leg area pretibially with approximately 10 cm scabbed lesion to the center of the erythema. Core Measures ACS in differential dx? Yes ASA ordered for poss ACS? No-ACS ruled out CVA/TIA Diagnosis: No Severe Sepsis Present: Yes BC x2: Yes Lactic Acid x2: Yes IV ABX Broad Spectrum: Yes NS/LR Started: Yes Septic Shock Present: No (DELMY MARIN,MEGAN) Progress Differential Diagnoses I considered the following diagnoses in my evaluation of the patient: Plan of Care: Orders Procedure Date/time Status Regular Diet 07/01 B Active CBC WITHOUT DIFFERENTIAL 07/01 599 Active BASIC ELECTROLYTES PLUS BUN&CR 07/01 599 Active LACTIC ACID 06/30 2158 Active Saline Lock 06/30 2152 Active Misc Message 06/30 2152 Active ED Holding Orders 06/30 2152 Active Admit to inpatient 06/30 2152 Active Vital Signs 06/30 2152 Active Activity/Ambulation 06/30 2152 Active Pathway - chart 06/30 2145 Active Code Status 06/30 2145 Active Patient Data 06/30 2050 Active Add-on Test (ER Only) 07/01 1931 Active MISTAKE 07/01 1931 Active BLOOD CULTURE 07/01 1931 Active Add-on Test (ER Only) 07/01 1927 Active Telemetry/Alterations Supervisor 07/01 1927 Active Intake & Output 06/30 1924 Active PROTHROMBIN TIME 06/30 1918 Complete LACTIC ACID 06/30 1918 Complete TYPE & SCREEN (NOT X-MATCH) 06/30 1918 Complete TROPONIN LEVEL 07/01 1903 Complete D-DIMER 07/01 1903 Complete COMPREHENSIVE METABOLIC PANEL 07/01 1903 Complete CBC WITHOUT DIFFERENTIAL 07/01 1903 Complete B-TYPE NATRIURETIC PEP (BNP) 06/30 190 Complete EKG 06/30 1848 Active House Staff 06/30 UNK Active VTE Mechanical Prophylaxis 06/30 UNK Active Current Medications Sig/Kim Start time Last Medication Dose Stop Time Status Admin Enoxaparin Sodium 40 MG DAILY 07/01 1000 AC (Lovenox) Folic Acid 1 MG DAILY 07/01 1000 AC (Folic Acid) Multivitamins 1 TAB DAILY 07/01 1000 AC Therapeutic (Theragran-M Vitamins Tabs) Acetaminophen 650 MG Q6 PRN 06/30 2200 AC (Tylenol) Laboratory Tests 06/30/16 1919: Anion Gap 12, Estimated GFR > 60, BUN/Creatinine Ratio 20.0, Glucose 79, Lactic Acid 4.1 H, Calcium 8.9, Total Bilirubin 1.5 H, AST 25, ALT 26, Alkaline Phosphatase 80, Troponin I < 0.01, Fxp-F-Sahjmozybfc Pept 16021 H, Total Protein 5.9 L, Albumin 3.4 L, Globulin 2.5, Albumin/Globulin Ratio 1.4, PT 11.6, INR 1.11, D-Dimer 377 H, CBC w Diff NO MAN DIFF REQ, RBC 3.69 L, MCV 88.4, MCH 27.8, RDW 35.8 H, MPV 10.1, Gran % 70.6, Lymphocytes % 16.8 L, Monocytes % 11.6 H, Eosinophils % 0.9, Basophils % 0.1, Absolute Granulocytes 4.8, Absolute Lymphocytes 1.2, Absolute Monocytes 0.8 H, Absolute Eosinophils 0.1, Absolute Basophils 0, PUBS MCHC 31.5 L Microbiology 06/30 2014 BLOOD: Blood Culture - RECD 06/30 1938 BLOOD: Blood Culture - RECD 06/30/2016 7:38:28 PM: Patient's repeat blood pressure 78 systolic. IV antibiotics ordered, 30 mL/kg of normal saline ordered. Discussed with and evaluated by Dr. Joel. 06/30/2016 8:25:59 PM: Repeat blood pressure 92 systolic. Patient appears to be resting comfortably, normal mentation. IV fluids and Unasyn infusing 06/30/2016 8:41:38 PM: Discussed with Dr. Nunn. Dr. Joel to discuss patient with hospitalist for admission. 06/30/2016 8:48:13 PM: Dr. Joel discussed patient's disposition with Dr. Gan [facility] Diagnostic Imaging: Viewed by Me: Radiology Read, Ultrasound. Discussed w/RAD: Radiology Read, Ultrasound. Radiology Impression: PATIENT: LENNOX MCINTOSH PRESENT AGE: 70 PATIENT ACCOUNT NO: [id number] : 46 LOCATION: [facility] ORDERING PHYSICIAN: MEGAN MARIN SERVICE DATE: 06/30/16 EXAM TYPE: US - US-UNILATERAL VENOUS DOPPLER EXAMINATION: US TRIPLEX LOWER EXTREMITY, RIGHT CLINICAL INFORMATION: Edema. Swelling. COMPARISON: None TECHNIQUE: Color- flow triplex imaging with spectral analysis and compression Doppler were performed on the right lower extremity. FINDINGS: Respiratory variation, normal compression and augmented flow are noted throughout the lower extremity. The visualized common femoral vein, superficial femoral vein, profunda femoral vein, popliteal vein and midcalf peroneal and posterior tibial venous segments show no evidence of deep venous thrombosis. There is no Wilson's cyst. Subcentimeter lymph node in the right groin has normal ultrasound morphology. Short axis diameter 0.6 cm. IMPRESSION: Normal triplex scan without evidence of deep venous thrombosis involving the right lower extremity. DICTATED BY: ELVIRA ZUNIGA MD DATE/TIME DICTATED:06/30/162037 LANGUAGE INTERPRETER:MILENA DATE/TIME TRANSCRIBED:06/30/162037 CONFIDENTIAL, DO NOT COPY WITHOUT APPROPRIATE AUTHORIZATION. <Electronically signed in Other Vendor System> SIGNED BY: ELVIRA ZUNIGA MD 06/30/162041 CXR Impression: PATIENT: LENNOX MCINTOSH PRESENT AGE: 70 PATIENT ACCOUNT NO: [id number] : 46 LOCATION: [facility] ORDERING PHYSICIAN: MEGAN MARIN SERVICE DATE: 06/30/16 EXAM TYPE: RAD - XRY-PORTABLE CHEST XRAY EXAMINATION: XR PORTABLE CHEST CLINICAL INFORMATION: Dyspnea. COMPARISON: Chest x-ray 01/28/2016 . Barium swallow 03/27/2011 TECHNIQUE: Portable AP portable view of the chest was obtained. 7:39 PM FINDINGS : Emphysematous hyperinflation of lungs. Hiatal hernia causing opacity in the retrocardiac area remains unchanged since prior study. No acute abnormality. No pulmonary vascular congestion. No infiltrate or pleural effusion. No pneumothorax. Status post median sternotomy for CABG. Heart size is enlarged. There is vascular wall calcifications of thoracic aortic arch IMPRESSION: No acute abnormality of the chest. DICTATED BY: ELVIRA ZUNIGA MD DATE/TIME DICTATED: 06/30/162013 LANGUAGE INTERPRETER:MILENA DATE/TIME TRANSCRIBED:06/30/162013 CONFIDENTIAL, DO NOT COPY WITHOUT APPROPRIATE AUTHORIZATION. <Electronically signed in Other Vendor System> SIGNED BY: ELVIRA ZUNIGA MD 06/30/162019 Initial ED EKG: sinus bradycardia [address] depression in V3 and V4 Prior EKG: changed Rhythm Strip: normal sinus rhythm (MEGAN NAVARRO) Departure Departure Disposition: STILL A PATIENT Condition: Fair Clinical Impression Primary Impression: Sepsis affecting skin Secondary Impressions: Chronic anemia, Sepsis associated hypotension Referrals: NAWAF ORO MD (PCP/Family) Departure Forms: Customer Survey General Discharge Information (MEGAN NAVARRO) Admission Note Spoke With: SANTI GAN MD Documentation of Exam: Documentation of any treatments & extenuating circumstances including Concerns Regarding Discharge (functional status, medication knowledge or non-compliance, living conditions, etc.) that warrant an admission rather than observation: [IV ABX, IV FLUIDS, CARDIOLOGY CONULTATION (DR. NUNN NOTIFIED), TELE MONITORING, SERIAL ENZYMES] PA/[employer] OFFICER Co-Sign Statement Statement: ED Attending supervision documentation- [X] I saw and evaluated the patient. I have also reviewed all the pertinent lab results and diagnostic results. I agree with the findings and the plan of care as documented in the PA's/[employer] OFFICER's documentation. [X] I have reviewed the ED Record and agree with the PA's/[employer] OFFICER's documentation. [] Additions or exceptions (if any) to the PAs/[employer] OFFICER's note and plan are summarized below: [] (MONA HANSON,DUSTY Shelley) Critical Care Note Critical Care Note Critical Care Time: 30-74 min (MEGAN NAVARRO)
[2016-06-30] MEDS ORDERED: VITAMIN B-12500 MC2 PO (19:18)
[2016-06-30] MEDS ORDERED: VITAMIN D1000 UNIT PO (19:18)
--- NOTE | 2016-06-30 19:25 | NUR ---
CARMELA LIPSCOMB ESTABLISHED IV ACCESS/ TRAM AND SENT LABS.
[2016-06-30 19:35] LABS: ABSOLUTE BASOPHIL COUNT 0 /CUMM (0.0-0.2); ABSOLUTE EOSINOPHIL COUNT 0.1 /CUMM (0.0-0.7); ABSOLUTE GRANULOCYTE CT 4.8 /CUMM (1.4-6.5); ABSOLUTE LYMPH COUNT 1.2 /CUMM (1.2-3.4); ABSOLUTE MONOCYTE COUNT 0.8 /CUMM (0.10-0.60); BASOPHIL % 0.1 % (0.0-2.0); EOSINOPHIL % 0.9 % (0-5); GRANULOCYTE % 70.6 % (42.2-75.2); HEMATOCRIT 32.6 % (42-52); MEAN CORPUSCULAR HGB 27.8 PG (27.0-31.0); MEAN CORPUSCULAR HGB CONC 31.5 G/DL (33.0-37.0); MEAN CORPUSCULAR VOLUME 88.4 FL (80.0-94.0); MEAN PLATELET VOLUME 10.1 FL (7.4-10.4); PLATELET COUNT 240 /CUMM (130-400); RBC DISTRIBUTION WIDTH 35.8 % (11.5-14.5); RED BLOOD CELL CT 3.69 /CUMM (4.70-6.10); WHITE BLOOD CELL COUNT 6.8 /CUMM (4.8-10.8)
--- NOTE | 2016-06-30 19:36 | NUR ---
NS INFUSING PER EMAR.
--- NOTE | 2016-06-30 19:40 | NUR ---
RAD AT BEDSIDE FOR CHEST XRAY.
[2016-06-30 19:41] LABS: PT 11.6 SEC (9.4-12.5)
--- NOTE | 2016-06-30 19:48 | NUR ---
CRITICAL TEST RESULTS [id number] LENNOX MCINTOSH 70 M TESTS AND RESULTS: LACTIC ACID 4.1 Results received and read back by: MARYANNE DOMINGUEZ Results received date and time: 06/30/161947 The following provider was notified of the results, and read the results back: TANIA BROCK Notified date and time: 06/30/16 at 1948
--- NOTE | 2016-06-30 19:55 | NUR ---
2ND ESTABLISHED LF G20, 2ND NS INFUSING PER EMAR. US AT BEDSIDE.
--- NOTE | 2016-06-30 20:15 | NUR ---
SECOND SET OF BLOOD CULTURES COLLECTED AND SENT TO LAB BY THIS RN, 500ML NS BOLUS INFUSING AND PT MEDICATED WITH 3G UNASYN PER EMAR.
--- NOTE | 2016-06-30 20:20 | RADIOLOGY REPORT ---
EXAMINATION: XR PORTABLE CHEST CLINICAL INFORMATION: Dyspnea. COMPARISON: Chest x-ray 01/28/2016 . Barium swallow 03/27/2011 TECHNIQUE: Portable AP portable view of the chest was obtained. 7:39 PM FINDINGS: Emphysematous hyperinflation of lungs. Hiatal hernia causing opacity in the retrocardiac area remains unchanged since prior study. No acute abnormality. No pulmonary vascular congestion. No infiltrate or pleural effusion. No pneumothorax. Status post median sternotomy for CABG. Heart size is enlarged. There is vascular wall calcifications of thoracic aortic arch IMPRESSION: No acute abnormality of the chest.
--- NOTE | 2016-06-30 20:23 | NUR ---
PTS BP IMPROVED TO 92/60.
--- NOTE | 2016-06-30 20:42 | ULTRASOUND REPORT ---
EXAMINATION: US TRIPLEX LOWER EXTREMITY, RIGHT CLINICAL INFORMATION: Edema. Swelling. COMPARISON: None TECHNIQUE: Color-flow triplex imaging with spectral analysis and compression Doppler were performed on the right lower extremity. FINDINGS: Respiratory variation, normal compression and augmented flow are noted throughout the lower extremity. The visualized common femoral vein, superficial femoral vein, profunda femoral vein, popliteal vein and midcalf peroneal and posterior tibial venous segments show no evidence of deep venous thrombosis. There is no Wilson's cyst. Subcentimeter lymph node in the right groin has normal ultrasound morphology. Short axis diameter 0.6 cm. IMPRESSION: Normal triplex scan without evidence of deep venous thrombosis involving the right lower extremity.
--- NOTE | 2016-06-30 21:09 | NUR ---
PT EATING FOOD TRAY THAT WAS ORDERED. PT RESTING IN RM WITH RR, NO COMPLAINTS AT THIS TIME
--- NOTE | 2016-06-30 21:40 | NUR ---
HOUSE STAFF IN FOR EVAL
[2016-06-30] MEDS ORDERED: AMBIEN5 M1 PO (22:04)
--- NOTE | 2016-06-30 22:04 | NUR ---
PT MEDICATED WITH [address] GAN STATED TO HOLD OFF ON THE GABAPENTIN.
--- NOTE | 2016-06-30 22:22 | NUR ---
REPEAT LACTIC DRAWN AND SENT
--- NOTE | 2016-06-30 22:50 | History & Physical ---
JYOTI THAPA MD 06/30/16 6389: General Information and [facility] MD Statement: I have seen and personally examined LENNOX MCINTOSH and documented this H&P. The patient is a 70 year old M who presented with a patient stated chief complaint of right lower extremity swelling, redness, pain with associated worsening shortness of breath. Source of Information: patient, old records Exam Limitations: no limitations History of Present Illness: 70-year-old man with past medical history significant for coronary artery disease status post CABG, alcohol dependence, and chronic anemia seen for evaluation of right lower extremity swelling/redness and associated shortness of breath. Patient was recently admitted to [facility] from 06/05/16-06/09/16 for symptomatic anemia for which he required 3 units of packed red blood cells. During this hospitalization he underwent a colonoscopy that identified extensive pandiverticulosis and multiple benign polyps. Patient was continued on oral iron repletion and discharged home with instruction to follow-up as an outpatient. Presently patient is complaining of pain in his right lower extremity. He reports scratching of the extremity 5 days ago due to a chronic diffuse skin itch that he admits that he scratched to deep causing a long linear wound. Progressively over the next few days the right lower extremity became red, swollen, and tender with drainage of a clear liquid. He admits to worsening shortness of breath over the past 3 days. He reports sleeping with one pillow and rarely sleeps in a chair. He admits to having good exercise tolerance on flat surfaces however is unable to do multiple flights of stairs. He reports associated fever and chills. He denies any associated chest pain but admits to moderate discomfort. Additionally he denies any blurred/double vision, lightheadedness/dizziness, headache, palpitations, cough, nausea, vomiting, diarrhea, numbness/tingling, constipation, urinary frequency/urgency/burning/pain. PMHx: Coronary artery disease status post CABG, hypertension, nephrolithiasis, depression, prostate cancer, rheumatoid arthritis, chronic pain, alcohol dependence, chronic anemia, B12 deficiency Allergies/Medications Allergies: Coded Allergies: No Known Allergies (06/30/16) Home Med list Atorvastatin Calcium (Lipitor) 80 MG TABLET 1 TAB PO DAILY CHOLESTEROL ( Reported) Cholecalciferol (Vitamin D3) (Vitamin D) 1,000 UNIT TABLET 1 TAB PO DAILY VITAMIN (Reported) Cyanocobalamin (Vitamin B-12) (Vitamin B-12) 500 MCG TABLET 1 TAB PO DAILY VITAMIN (Reported) Ferrous Sulfate 325 MG (65 MG IRON) TABLET.DR 325 MG PO TID ANEMIA Folic Acid 1 MG TABLET 1 MG PO DAILY SUPPLEMENT Gabapentin 600 MG TABLET 1 TAB PO 4 TIMES/DAY PAIN CONTROL (Reported) Metoprolol Tartrate 25 MG TABLET 25 MG PO BID HEART Morphine Sulfate (Morphine Sulfate ER) 15 MG TABLET.ER 1 TAB PO TID PAIN ( Reported) Multivitamin (One Daily Multivitamin) 1 EACH TABLET 1 TAB PO DAILY SUPPLEMENT Oxycodone HCl 10 MG TABLET 1 TAB PO 4 TIMES/DAY PAIN (Reported) Pantoprazole Sodium (Protonix) 40 MG TABLET.DR 1 TAB PO DAILY GI (Reported) Sertraline HCl (Zoloft) 100 MG TABLET 1 TAB PO DAILY MENTAL HEALTH (Reported) Zolpidem Tartrate (Ambien) 5 MG TABLET 1 TAB PO QPMP PRN INSOMNIA (Reported) Past History Travel History Traveled to [place] past 21 day No Medical History Neurological: NONE EENT: NONE Cardiovascular: CAD, hypertension Respiratory: NONE Gastrointestinal: NONE Hepatic: NONE Renal: nephrolithiasis Musculoskeletal: chronic back pain, osteoarthritis Psychiatric: depression Endocrine: PARTIAL THYROIDECTOMY Blood Disorders: anemia, B12 deficiency Cancer(s): prostate cancer PRESCHOOL ASSISTANT/Reproductive: NONE History of MRSA: No History of VRE: No History of CDIFF: No Influenza Vaccine: 02/22/16 Surgical History Surgical History: CABG, prostatectomy, BILAT HIP REPLACEMENT BILAT CATARACT SX PARTIAL THYROIDECTOMY APPENDECTOMY Past Family/Social History Family History Relations & Conditions if any FATHER FH: prostate cancer Psychosocial History Who Do You Live With? spouse, child Services at Home: None Primary Language: Grenadian ETOH Use: occasional use Illicit Drug Use: "THAT'S PROBABLY A PRIVACY ISSUE" Functional Ability ADLs Independent: dressing, eating, toileting, bathing. Ambulation: independent, cane IADLs Independent: shopping, housework, finances, food prep, telephone, transportation , medication admin. Review of Systems Review of Systems Constitutional: Reports: see HPI. Exam & Diagnostic Data Last 24 Hrs of Vital Signs/I&O Vital Signs Date Time Temp Pulse Resp B/P Pulse O2 O2 Flow FiO2 Ox Delivery Rate 06/30 2113 98.9 86 18 100/68 98 Room Air 07/01 2043 100/58 06/30 2026 97 Room Air 06/30 2022 92/60 06/30 1950 78/50 06/308 97.8 60 20 99/57 93 Room Air Physical Exam General Appearance Alert, Oriented X3, Cooperative, No Acute Distress Skin Multiple wounds in various stages of healing throughout body with associated excoriations. HEENT Atraumatic, PERRLA, EOMI, Mucous Membr. moist/pink Neck Supple Cardiovascular Regular Rate, Normal S1, Normal S2, No Murmurs Lungs Clear to Auscultation, Normal Air Movement Abdomen Normal Bowel Sounds, No Tenderness, No Masses, Abdominal hernia, Swollen , distended, tense, nontender Neurological Normal Speech, Normal Tone, Cranial Nerves 3-12 NL Extremities No Clubbing, No Cyanosis, Normal Pulses, 1+ bilateral lower edema, Multiple scab wounds, Large 5cm linear wound with associated scabbing without any drainage on anterior distal right lower extremity Vascular Normal Pulses, Pulses Symmetrical Last 24 Hrs of Labs/Antwan: Laboratory Tests 06/30/16 2220: Lactic Acid 1.2 06/30/16 191: Anion Gap 12, Estimated GFR > 60, BUN/Creatinine Ratio 20.0, Glucose 79, Lactic Acid 4.1 H, Calcium 8.9, Total Bilirubin 1.5 H, AST 25, ALT 26, Alkaline Phosphatase 80, Troponin I < 0.01, Jez-D-Zauuughfree Pept 83968 H, Total Protein 5.9 L, Albumin 3.4 L, Globulin 2.5, Albumin/Globulin Ratio 1.4, PT 11.6, INR 1.11, D-Dimer 377 H, CBC w Diff NO MAN DIFF REQ, RBC 3.69 L, MCV 88.4, MCH 27.8, RDW 35.8 H, MPV 10.1, Gran % 70.6, Lymphocytes % 16.8 L, Monocytes % 11.6 H, Eosinophils % 0.9, Basophils % 0.1, Absolute Granulocytes 4.8, Absolute Lymphocytes 1.2, Absolute Monocytes 0.8 H, Absolute Eosinophils 0.1, Absolute Basophils 0, PUBS MCHC 31.5 L Microbiology 06/30 2014 BLOOD: Blood Culture - RECD 06/30 1938 BLOOD: Blood Culture - RECD Assessment/Plan Assessment: 70-year-old man with multiple medical problems and recent hospitalization for symptomatic anemia seen for evaluation of right lower extremity pain/swelling/ redness with associated fever/chills and worsening shortness of breath. Vital signs on ED evaluation demonstrate temp 97.8, HR 60, RR 20, BP 99/57, 93% on room air. Physical examination demonstrates an elderly man in no acute distress with a normal heart and pulmonary examination and a distended tense, nontender abdomen with right lower extremity swelling, erythema and multiple wounds in various stages of healing without tenderness or drainage. Lab work is significant for WBC 6.8, hemoglobin/hematocrit 10.3/32.6, normal serum chemistries, lactic acid 4.1, total bilirubin 1.5, BNP 58505, troponin < 0.01, d-dimer 377. Chest x-ray and unilateral right lower extremity Doppler are negative or otherwise within normal limits. EKG demonstrates an ectopic atrial rhythm with persistent T-wave inversions in precordial leads without any new ST segment changes. Right lower extremity cellulitis/sepsis Patient presenting with right lower extremity swelling, tenderness, erythema with clear drainage and associated fever and chills. Patient reports "always being itchy" for unknown reasons for which he was prescribed Benadryl. Despite this he is constantly scratching and has multiple wounds in various stages of healing all around his body. His right lower extremity has a 5 cm linear scabbed wound that he reports occurred roughly 5 days ago that he believes to be the cause of his symptoms. His right knee is moderately tender with associated swelling without any obvious deformity. Dr. Stein of cardiology was contacted in regards to patients shortness of breath and possible EKG changes. Initial troponin negative -Telemetry -Monitor vital signs for hemodynamic instability -Trend lactic acid until normal -Trend troponin/EKG -Normal saline at 125 mL per hour -Unasyn 3 g IV every 6 hours -Cardiology consult in AM with Dr. Stein -Follow-up blood cultures -Follow-up right knee x-ray History of chronic anemia -Folic Acid 1 mg by mouth daily -Ferrous sulfate 325 mg by mouth 3 times a day -Multivitamin 1 tablet by mouth daily Chronic pain -Hold narcotic pain medications for hypotension or altered mental status -MS Contin 15 mg by mouth every 8 hours -Oxycodone 10 mg by mouth every 6 hours -Gabapentin 600 mg by mouth every 6 hours History of alcohol dependence -[facility] protocol -Follow-up serum alcohol and urine toxicology History of insomnia-Rozerem as needed Hyperlipidemia-atorvastatin 80 mg by mouth daily B12 deficiency-cyanocobalamin 1000 g by mouth daily Depression-Zoloft 100 mg by mouth daily GERD-omeprazole 40 mg by mouth daily Pain plan-acetaminophen Diet-regular diet DVT prophylaxis-Lovenox CODE STATUS-full code As Ranked By This Provider Problem List: 1. Cellulitis of right lower extremity Core Measures/Miscellaneous Acute Coronary Syndrome ACS Diagnosis: No Cerebrovascular Accident CVA/TIA Diagnosis: No Congestive Heart Failure CHF Diagnosis: No Venous Thromboembolism VTE Risk Factors: Acute medical illness, Age > 40, Obesity No [facility] VTE prophylaxis d/t: LE Edema, LE Injury, current No VTE Pharm Prophylaxis d/t: No contraindications VTE Diagnosis: No VTE Type: NONE VTE Confirmed by (Test): NONE Severe Sepsis Severe Sepsis Present: Yes BC x2: Yes Lactic Acid x2: Yes IV ABX Broad Spectrum: Yes NS/LR Started: Yes Septic Shock Septic Shock Present: No Miscellaneous Documentation Attending Case Discussed With: SANTI GAN MD Primary Care Physician: NAWAF ORO MD Patient sees these Specialists Dr. Bermudez Level of Patient Care: Telemetry Consults Needed: Consulting Specialty: Cardiology KRISHNA GAN MD 06/30/16 2346: Attending MD Review Statement Attending Statement Attending MD Statement: examined this patient, discuss w/resident/PA/MAINTENANCE JOURNEYMAN, agreed w/resident/PA/MAINTENANCE JOURNEYMAN Attending Assessment/Plan: 70 yo M with h/o CAD s/p CABG, prostate cancer s/p protatectomy, HTN, RA, chronic pain, alcohol dependence, chronic DUGLAS, B12 deficiency and neuropathy, recently admitted to [facility] (06/05 06/09) for symptomatic anemia requiring PRBC and heart failure, is brought in by daughter for evaluation of RLE pain, erythema and swelling, associated with HUBBARD and chest heaviness over past 1 week. He probably has chronic eczema as he itches and multiple scratch chowdhury/ scabs all over his body, this probably precipitated the RLE cellulitis. Still consumes 2 beers every other day. Vitals: initially on ER arrival, hypotensive to 78/50 --> responded to fluids -- > 100/58, afebrile, HT 60's sats 96% RA. Labs: H/H 10.3/32.6, lactic acid 4.1 -- > 1.2, T. Bili 1.5, AST 25, ALT 26, trop neg, proBNP 13103, S. Alcohol < 10. CXR : no pulmonary vascular congestion, RLE doppler: no DVT, Right knee Xray: small suprapatellar effusion, degenerative joint disease. EKG: SR, T-wave flattening V3-5, ST 1-2 mm prominent V3-5. Echo (2017): EF 60%, mild to mod MR, moderate to severe pulm HTN. 1. Right lower extremity cellulitis, no evidence of SIRS, however patient does have end organ dysfunction with hypotension and lactic acidosis. GM admit, panculture, elevate RLE, received 3 L bolus, continue maintenance IV fluids, IV Unasyn. Monitor hypotension, hold BP meds. 2. Exertional dyspnea and chest tightness, with new EKG changes likely induced by the stress of the infection. Serial EKG and troponin, no need to repeat Echo, Cardio consult (Dr. Stein). Although proBNP is elevated, clinical exam and CXR are not suggestive of decompensated heart failure. 3. Chronic pain. Resume opiate meds. 4. Chronic alcohol dependence with elevated T. Bili but normal transaminases. Monitor CIWA. No need for ativan. Consider abdomen ultrasound in AM. Check urine tox screen. DVT ppx Lovenox. Full code. WILLIAM BHATT 07/01/16 0107: Resident Review Statement Resident Statement: examined this patient, discussed with merchandising internship, agreed with merchandising internship, amended to note Other Findings: 70-year-old man with past medical history of CABG, anemia,hypertension, nephrolithiasis, depression, prostate cancer, osteoarthritis, chronic pain, alcohol dependence, chronic anemia, B12 deficiency who was admitted to [facility] recently with chief complaint of symptomatic anemia(colonoscopy that identified extensive pandiverticulosis and multiple benign polyps, s/p 3 PRBC units transfusion) came to the hospital with chief complaint of lower extremity swelling, fevers, exertional dyspnea. Patient reported since being discharged from [facility] he was feeling fine up until 3 days ago which he developed exertional dyspnea, chest pressure, mild increased swelling of the abdomen and redness and swelling of the right leg (with mild drainage of a clear liquid.). he reported that he scratches legs chronically. He also reports fever and chills during these days. he denies any blurred/double vision, lightheadedness/dizziness, headache, palpitations, cough, nausea, vomiting, diarrhea, changes in urinary or bowel habits. Vital signs are notable hypotension which improved after 2.5 L NS IV BoLus.no fever, good o2 saturation on room air Skin scattered scratch chowdhury in both legs and in the back with Scabs HEENT Atraumatic, PERRLA, EOMI Neck Supple Cardiovascular Regular Rate, Normal S1, Normal S2 Lungs mildly decreased bilateral breath sounds Abdomen Normal Bowel Sounds, Soft, mildly distended Neurological Normal Gait, Normal Speech, Extremities increased swelling and redness on the right molina with warmness, Increased swelling of the right knee, mildly tender to touch(patient is able to move his knees completely) His EKG showed sinus rhythm, with flattening of the T waves in precordial leads BNP is more than 10,000,hemoglobin is 10.3, d-dimer 377, postoperative been 105 , Trop within normal limits Last ECHO in May showed EF of 60% with diastolic dysfunction Ultrasound ruled out DVT in right leg Knee x ray: showed Small suprapatellar effusion. Degenerative joint disease of the knee. No focal bone destruction. Assessment and plan #Sepsis due to cellulitis -continue IV hydration with normal saline 1 25 mL per hour -Continue Unasyn 3 g IV every 6 -follow blood culture -CBC, BEP in the morning -Tylenol for fever and pain -Hold metoprolol for now -lactic acid normalized #EKG changes -Serial troponin and EKG 3 -Cardiology consult with Dr. Stein tomorrow -Hold metoprolol for now #History hx of beer drinking -Check serum alcohol level and urine tox #Chronic pain -Continue morphine, oxycodone, gabapentin gradually in the morning #anemia -Continue PPI and iron pills #elevated bilirubin, mild abdominal distension -If patient abdominal distention and hyperbilirubinemia persisted would suggest abdominal ultrasound for ascites biliary tree investigation Full code, DVT prophylaxis and adnexa proline and mechanical, heart healthy diet
--- NOTE | 2016-06-30 23:44 | RADIOLOGY REPORT ---
EXAMINATION: XR KNEE, RIGHT CLINICAL INFORMATION: Fever and swelling of the knee. Concern for septic arthritis. COMPARISON: None TECHNIQUE: Four views of the right knee. FINDINGS: There is a small suprapatellar effusion. No air in the soft tissues. No bone destruction. There is degenerative joint disease. There is narrowing of the medial femoral tibial joint. No significant spur. There is chondrocalcinosis of the medial meniscus. Patellofemoral joint normal. Vascular calcifications of the calf with surgical clips at the medial side of the calf and knee. IMPRESSION: Small suprapatellar effusion. Degenerative joint disease of the knee. No focal bone destruction.
--- NOTE | 2016-06-30 23:48 | Admission Certification ---
Admission Certification Certification Statement - As attending physician, I certify that at the time of - admission, based on clinical presentation, severity of - symptoms, need for further diagnostic testing and - therapeutic interventions, and risk of adverse outcomes - without in-hospital treatment, in my clinical assessment, - this patient requires an acute hospital stay for a minimum - of two nights or longer. I have also considered psychsocial - factors such as support system, advanced age, financial - issues, cognitive issues, and failed out-patient treatments, - past re-admission history, safety of patient, and lack of - compliance as applicable. Specific rationale supporting this admission is: Right lower extremity cellulitis with lactic acidosis and hypotension. EKG changes hence needs telemetry monitoring.
--- NOTE | 2016-07-01 00:41 | NUR ---
PTMEDICATED WITH 325MG FERROUS SULFATE TAB PO PER EMAR.
--- NOTE | 2016-07-01 00:43 | NUR ---
PTS BOP 120/62
--- NOTE | 2016-07-01 01:51 | NUR ---
PT RESTING IN RM WITH RR, WATCHING TV, NSR ON MONITOR. WILL CONTINUE TO MONITOR. VSS.
--- NOTE | 2016-07-01 01:56 | NUR ---
PTS BP 98/50.
--- NOTE | 2016-07-01 03:07 | NUR ---
PT MEDICATED WITH 3G UNASYN PER EMAR.
--- NOTE | 2016-07-01 05:59 | NUR ---
REPEAT EKG AND REPEAT LABS (SST AND LAV) REDRAWN AND SENT TO LAB.
--- NOTE | 2016-07-01 06:01 | NUR ---
MEDICATED FOR R LOWER LEG PAIN WITH ROXICODONE 10 MG PO.
[2016-07-01 06:12] LABS: ABSOLUTE BASOPHIL COUNT 0 /CUMM (0.0-0.2); ABSOLUTE EOSINOPHIL COUNT 0.1 /CUMM (0.0-0.7); ABSOLUTE MONOCYTE COUNT 0.7 /CUMM (0.10-0.60)
[2016-07-01 06:17] LABS: ABSOLUTE LYMPH COUNT 0.8 /CUMM (1.2-3.4); BASOPHIL % 0.4 % (0.0-2.0); EOSINOPHIL % 2.2 % (0-5); GRANULOCYTE % 64.7 % (42.2-75.2); HEMATOCRIT 29.2 % (42-52); MEAN CORPUSCULAR HGB 27.9 PG (27.0-31.0); MEAN CORPUSCULAR HGB CONC 31.5 G/DL (33.0-37.0); MEAN CORPUSCULAR VOLUME 88.4 FL (80.0-94.0); MEAN PLATELET VOLUME 9.1 FL (7.4-10.4); RBC DISTRIBUTION WIDTH 35.5 % (11.5-14.5); WHITE BLOOD CELL COUNT 4.7 /CUMM (4.8-10.8)
[2016-07-01 06:36] LABS: PLATELET COUNT 167 /CUMM (130-400)
--- NOTE | 2016-07-01 06:56 | PN- Housestaff ---
CATY HANSON,[facility] 07/01/16 0655: Subjective Follow-up For: cellulitis shortness of breath Subjective: Pt seen and examined today. His main reason for coming to the hospital is shortness of breath. He reports that the "leg swelling was a bonus". He does not think the swelling is related to the shortness of breath. He reports shortness of breath on mild exertion, after walking short distance, he gets winded once he sits down on the bed, trying to get his legs onto the bed. The SOB has worsened over the past 3 days. His right leg has been swollen for 3 days. His right lower extremity was red, swollen, and slightly tender from the ankle to knee, no appreciable difference in temperature between right and left. His right knee also swollen, non- erythematous, warmer than left, active and passive ROM intact, nontender. He was previously admitted 1 month ago for shortness of breath, found to have anemia and required 3 units tranfusions. Denied blood in stool or urine. He was admitted to [facility] for EKG changes. On first EKG, noted t wave flattening on v3 and v4 and minimal st depression on v3 and v4. On the subsquent 2 EKGs, the t wave flattening persists and I could no longer see ST depressions. Dr. Stein has been consulted, and will see patient later today. He has cough (chronic) without sputum production. reports some wheezing. He denies chest pain, discomfort, dizziness. Orthostats negative. He has a scab over the right 3rd toe, looks like necrotic ulcer. Arterial US of both lower extremities show Normal right femoral peripheral arterial testing without evidence of hemodynamically significant stenosis. There are normal inflow and outflow velocities within the left lower extremity. However, there is a likely dorsalis pedis stenosis in the left foot. Review of Systems Constitutional: Reports: see HPI. Objective Last 24 Hrs of Vital Signs/I&O Vital Signs Date Time Temp Pulse Resp B/P Pulse O2 O2 Flow FiO2 Ox Delivery Rate 07/01 1010 98.5 68 18 125/65 98 07/01 0552 98.3 65 20 127/61 92 Room Air 07/01 0300 62 107/56 07/01 0156 98/50 07/01 0126 96 Room Air 07/01 0043 120/62 06/30 2342 98.9 64 18 94/52 92 Room Air 06/30 2113 98.9 86 18 100/68 98 Room Air 07/01 2043 100/58 06/30 2026 97 Room Air 06/30 2022 92/60 06/30 1951 78/50 06/30 1858 97.8 60 20 99/57 93 Room Air Intake & Output 07/01 1600 07/01 0800 07/01 0000 Intake Total Output Total 600 Balance -600 Output, Urine 600 Patient 74.843 kg 74.843 kg Weight Physical Exam General Appearance: Alert, Oriented X3, Cooperative, No Acute Distress Skin: skin changes as described in hpi Cardiovascular: Regular Rate, Normal S1, Normal S2 Lungs: mild exp wheeze (worse on the right). crackles at both lung bases. Abdomen: Normal Bowel Sounds, Soft, No Tenderness Extremities: see hpi Current Medications: Current Medications Sig/Kim Start time Last Medication Dose Route Stop Time Status Admin Acetaminophen 650 MG Q6 PRN 06/30 2200 AC PO Ampicillin Sodium/ 0 .STK-MED ONE 07/01 1359 DC Sulbactam Sodium .ROUTE Ampicillin Sodium/ 0 .STK-MED ONE 07/01 0820 DC Sulbactam Sodium .ROUTE Ampicillin Sodium/ 0 .STK-MED ONE 07/01 0303 DC Sulbactam Sodium .ROUTE Ampicillin Sodium/ 3,000 MG Q6H 07/01 0230 AC 07/01 Sulbactam Sodium IV 1406 Sodium Chloride 100 ML Ampicillin Sodium/ 0 .STK-MED ONE 07/01 2019 DC Sulbactam Sodium .ROUTE Ampicillin Sodium/ 3,000 MG ONCE ONE 06/30 194 DC 06/30 Sulbactam Sodium IV 06/30 Sodium Chloride 100 ML Atorvastatin Calcium 80 MG 1700 07/01 1700 AC PO Cholecalciferol 1,000 IU DAILY 07/01 1000 AC 07/01 PO 1001 Cyanocobalamin 1,000 MCG DAILY 07/01 1000 AC 07/01 PO 0959 Enoxaparin Sodium 40 MG DAILY 07/01 1000 AC SC Enoxaparin Sodium 0 .STK-MED ONE 07/01 0954 DC SC Ferrous Sulfate 325 MG TID 07/01 0030 AC 07/01 PO 0959 Folic Acid 1 MG DAILY 07/01 1000 AC 07/01 PO 0959 Folic Acid 0 .STK-MED ONE 07/01 0953 DC PO Gabapentin 600 MG Q6 07/01 1200 AC 07/01 PO 1147 Gabapentin 0 .STK-MED ONE 06/30 2202 DC PO Gabapentin 600 MG ONCE ONE 06/30 2145 DC PO 06/30 2146 Morphine Sulfate 15 MG Q8 07/01 1400 AC 07/01 PO 1406 Morphine Sulfate 0 .STK-MED ONE 07/01 1358 DC PO Multivitamins 1 TAB DAILY 07/01 1000 AC 07/01 Therapeutic PO 0959 Omeprazole 40 MG DAILY AC 07/01 0700 AC 07/01 PO 0600 Omeprazole 0 .STK-MED ONE 07/01 0558 DC PO Oxycodone HCl 0 .STK-MED ONE 07/01 1209 DC PO Oxycodone HCl 0 .STK-MED ONE 07/01 0558 DC PO Oxycodone HCl 10 MG Q6 06/30 2359 AC 07/01 PO 1211 Oxycodone HCl 0 .STK-MED ONE 06/30 2202 DC PO Oxycodone HCl 10 MG ONCE ONE 06/30 2145 DC 06/30 PO 06/30 2146 2203 Sertraline HCl 100 MG DAILY 07/01 1000 AC 07/01 PO 0959 Sodium Chloride 1,000 ML ONCE ONE 06/30 2200 DC /07 IV 07/01 0759 2213 Sodium Chloride 1,000 ML BOLUS ONE 06/30 194 DC / IV 07/01 2043 193 Sodium Chloride 1,000 ML BOLUS ONE 06/30 194 DC / IV 06/30 Sodium Chloride 500 ML BOLUS ONE 06/30 1944 DC 06/30 IV 06/30 Last 24 Hrs of Lab/Antwan Results Last 24 Hrs of Labs/Mics: Laboratory Tests 07/01/16 0602: Anion Gap 6, Estimated GFR > 60, BUN/Creatinine Ratio 21.3, Troponin I < 0.01, CBC w Diff NO MAN DIFF REQ, RBC 3.30 L, MCV 88.4, MCH 27.9, RDW 35.5 H, MPV 9.1, Gran % 64.7, Lymphocytes % 17.1 L, Monocytes % 15.6 H, Eosinophils % 2.2, Basophils % 0.4, Absolute Granulocytes 3.0, Absolute Lymphocytes 0.8 L, Absolute Monocytes 0.7 H, Absolute Eosinophils 0.1, Absolute Basophils 0, PUBS MCHC 31.5 L 07/01/16 0049: Troponin I < 0.01 06/30/16 2220: Lactic Acid 1.2 06/30/16 1919: Anion Gap 12, Estimated GFR > 60, BUN/Creatinine Ratio 20.0, Glucose 79, Lactic Acid 4.1 H, Calcium 8.9, Total Bilirubin 1.5 H, AST 25, ALT 26, Alkaline Phosphatase 80, Troponin I < 0.01, [id number] Pept 48191 H, Total Protein 5.9 L, Albumin 3.4 L, Globulin 2.5, Albumin/Globulin Ratio 1.4, PT 11.6, INR 1.11, D-Dimer 377 H, CBC w Diff NO MAN DIFF REQ, RBC 3.69 L, MCV 88.4, MCH 27.8, RDW 35.8 H, MPV 10.1, Gran % 70.6, Lymphocytes % 16.8 L, Monocytes % 11.6 H, Eosinophils % 0.9, Basophils % 0.1, Absolute Granulocytes 4.8, Absolute Lymphocytes 1.2, Absolute Monocytes 0.8 H, Absolute Eosinophils 0.1, Absolute Basophils 0, PUBS MCHC 31.5 L, Serum Alcohol < 10.0 Microbiology 06/30 2014 BLOOD: Blood Culture - RES 06/30 1938 BLOOD: Blood Culture - RES Assessment/Plan Assessment: 70-year-old male with PMH of coronary artery disease status post CABG, hypertension, nephrolithiasis, depression, prostate cancer, rheumatoid arthritis , chronic pain, alcohol dependence, chronic anemia, B12 deficiency, recent hospitalization for symptomatic anemia requiring 3 units of transfusions, presented for worsening shortness of breath with right lower extremity swelling. # Shortness of breath, due to anemia? vs NSTEMI? - He reports shortness of breath on mild exertion, after walking short distance, he gets winded once he sits down on the bed, trying to get his legs onto the bed. 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 - On first EKG, noted t wave flattening on v3 and v4 and minimal st depression on v3 and v4. On the subsquent 2 EKGs, the t wave flattening persists and I could no longer see ST depressions. - He was previously admitted 1 month ago for shortness of breath, found to have anemia and required 3 units tranfusions. Hg was 8.1 at discharge on jun 09. Denied blood in stool or urine. - He has cough (chronic) without sputum production. reports some wheezing. - CXR: no acute abnormality of the chest - probnp [id number] , but not in obvious CHF - Last echo May 2016: LFEF 60%. Pulmonary artery systolic pressure is moderate to severely elevated to 60mmHg. * Continue telemetry monitoring * Serial trops negative * Hold off diuretics * Continue Metoprolol * Appreciate cardio consult with Dr. Stein * Guaiac all stool * Monitor h/h. 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 - His right lower extremity was red, swollen, and slightly tender from the ankle to knee, no appreciable difference in temperature between right and left. - His right knee also swollen, non-erythematous, warmer than left, active and passive ROM intact, nontender. Knee xray: Small suprapatellar effusion. Degenerative joint disease of the knee. No focal bone destruction. - He has a scab over the right 3rd toe, looks like necrotic ulcer. Arterial US of both lower extremities show Normal right femoral peripheral arterial testing without evidence of hemodynamically significant stenosis. There are normal inflow and outflow velocities within the left lower extremity. However, there is a likely dorsalis pedis stenosis in the left foot. - Doppler US negative for DVT * Continue Unasyn 3 g IV every 6 day # 2 * follow blood culture * Keep legs elevated * Emolient for dry skin * Pramoxine for pruritus # History of alcohol dependence with elevated t bili but normal transaminase - Serum alcohol < 10 * Check CIWA * Consider abdominal US * Continue Multivitamin 1 tablet by mouth daily * Continue Folic Acid 1 mg by mouth daily # Chronic pain * Continue MS Contin 15 mg by mouth every 8 hours * Continue Oxycodone 10 mg by mouth every 6 hours * Continue Gabapentin 600 mg by mouth every 6 hours # History of insomnia * Continue Rozerem as needed # Hyperlipidemia * Continue atorvastatin 80 mg by mouth daily # B12 deficiency * Continue cyanocobalamin 1000 g by mouth daily # Depression * Continue Zoloft 100 mg by mouth daily Diet-regular diet DVT prophylaxis-Lovenox CODE STATUS-full code Problem List: 1. Symptomatic anemia 2. Shortness of breath 3. Cellulitis of right lower extremity Pain Ratin Pain Location: right leg Pain Goal: Pain 4 or less Pain Plan: home meds Tomorrow's Labs & Rationales: cbc for anemia Consulting Request: Consulting Specialty: Cardiology TARYN HANSONRENÉE 07/01/16 1446: Attending MD Review Statement Attending Statement Attending MD Statement: examined this patient, discuss w/resident/PA/E[employer]AG[employer] ASSISTANT MANAGER, agreed w/resident/PA/EINSTEIN [employer] ASSISTANT MANAGER, reviewed EMR data (avail) Attending Assessment/Plan: 70M PMH CAD s/p CABG, HTN, chronic anemia with recent admission for symptomatic anemia s/p EGD and colonoscopy with a total of 7 colon polyps removed, admitted for RLE cellulitis and dyspnea on exertion with EKG changes. Patient has chronic pruritis and dry skin with likely eczema, and is scratching his body during the entirety of the interview. His RLE has excoriations and is swollen, erythematous, and tender. There is no purulence. He reports 2 weeks of dyspnea on exertion, denies chest pain or palpitations. He otherwise feels well. EKG shows TWI in anterior leads without ST changes. Troponin is negative. Was initially hypotensive on admission but received appropriate IV fluids and appears euvolemic. Lactate initially elevated now normalized. 1. RLE cellulitis 2. Eczema 3. Dyspnea on exertion 4. Acute EKG changes 5. History of CAD s/p CABG 6. Iron deficiency anemia 7. Lactic acidosis 8. Hypotension Plan - Continue on telemetry - Cardiology consult - Continue Unasyn - Leg elevation - Pramoxine cream for pruritis - Add an emolient for dry skin on lower extremities - Leg elevation - Follow cultures - Continue home medications - Will hold on diuretics for now, even though BNP is elevated, there are no clinical signs of CHF - Will obtain arterial doppler to evaluate for PAD - DVT PPx
--- NOTE | 2016-07-01 10:03 | NUR ---
PT REFUSED LOVENOX, DR. RIVAS NOTIFIED.
--- NOTE | 2016-07-01 10:27 | NUR ---
TO US. (PER DR. JACOBO: OK TO TRANSPORT WITHOUT MONITOR FOR TESTING.)
--- NOTE | 2016-07-01 11:28 | NUR ---
PT. DAUGHTER CALLED REGARDING STATUS OF HER FATHER, DAUGHTER QUESTIONING IF HER FATHER NEEDS TO BE ON TELEMETRY BECAUSE SHE WOULD NOT HAVE BROUGHT HIM TO THE HOSPITAL HAD SHE KNOWN THAT HE WOULD BE WAITING IN THE EMERGENCY ROOM FOR A BED. DAUGHTER ADVISED THAT REGARDLESS OF HER FATHER BEING TELEMETRY OR GENERAL MEDICINE UNFORTUNATELY HOLDS WERE THROUGHOUT BOTH FLOORS DUE TO AND INCREASE IN VOLUME OF PATIENTS BUT WE ARE DOING OUR BEST TO MAKE SURE PATIENTS ARE COMFORTABLE AND HAVE GIVEN HIM A HOSPITAL BED. DAUGHTER STATES "WELL I THINK IT IS VERY UNFAIR THAT SOMEONE ALSO THREW AWAY MY FATHERS NEWSPAPER", DAUGHTER WAS APOLOGIZED TO AND CONCERN WAS ACKNOWLEDGED, DAUGHTER WAS ADVISED THAT WE WOULD LOOK FOR THE MISSING NEWSPAPER AND DO OUR BEST TO REPLACE IT WITH A NEW ONE. PATIENTS DAUGHTER REPLIED "WELL ARE YOU GOING TO ASK ME WHICH NEWSPAPER HE LIKES OR WERE YOU NOT EVEN GOING TO ACTUALLY GO LOOK FOR THE NEW NEWSPAPER", DAUGHTER ADVISED THAT WE WERE GOING TO LOOK FOR THE NEWSPAPER AND APOLOGIES WERE GIVEN I DID NOT REALIZE HE FAVORED A PARTICULAR NEWSPAPER. DAUGHTER REPLIED HE PREFERS THE [employer] POST. SHE THEN STATED "AND DOES HE GET TO ORDER HIS OWN FOOD OR DOES HE HAVE A SPECIFIC DIET", DAUGHTER WAS ADVISED THAT DIETS ARE ORDERED GENERICALLY BUT BECAUSE HER FATHER WAS ORDERED A REGULAR DIET HE COULD BE OFFERED A MENU TO ORDER SOMETHING DIFFERENT OTHER THAN WHAT HE WAS GIVEN. DAUGHTER SAID THAT "ALLOWING HIM TO ORDER HIS OWN FOOD IS THE SMALLEST COURTESY CONSIDERING IT SEEMS VERY DISORGANIZED THERE". APOLOGIES WERE AGAIN GIVEN AND DAUGHTER WAS ADVISED THAT HER FATHER WOULD BE GIVEN A MENU TO ORDER HIS OWN FOOD. SHE REPLIED WITH THANK YOU AND HUNG UP.
--- NOTE | 2016-07-01 11:37 | NUR ---
PTS DAVONTE SHARMA WAS FOUND OUTSIDE OF HIS ROOM AND WAS GIVEN TO PATIENT.
--- NOTE | 2016-07-01 11:41 | NUR ---
PT GIVEN NEWSPAPER AND FOOD MENU AT THIS TIME.
--- NOTE | 2016-07-01 12:11 | NUR ---
MEDICATED PER EMAR FOR PAIN--REPORTS PAIN 8/10, STATES 7-8 IS HIS BASELINE. MEAL TRAY ORDERED. PT STATES "IF I HAVE TO BE IN THE HOSPITAL, I'M GLAD I'M HERE BECAUSE THE FOOD IS REALLY GOOD." READING NEWSPAPER WHILE SITTING IN CHAIR. NO OTHER CONCERNS. NST 60S ON TELE.
--- NOTE | 2016-07-01 12:55 | ULTRASOUND REPORT ---
EXAMINATION: COLOR-FLOW DUPLEX IMAGING OF THE BILATERAL LOWER EXTREMITY ARTERIAL SYSTEM. VELOCITY MEASUREMENTS THROUGHOUT THE FEMORAL ARTERIES WITH PERIPHERAL ARTERIAL TESTING. Interventional Radiologist: Sven Gill M.D., F.S.I.R., F.A.C.R. CLINICAL INFORMATION: This is a 70-year-old male with a necrotic ulcer on the right third toe. Possible hemodynamically significant atherosclerotic disease. RIGHT FEMORAL RUNOFF VELOCITIES: The right common femoral artery measures 148 cm/s and triphasic. The right profunda femoral artery is 71 cm/s and is triphasic. Right proximal superficial femoral artery measures 194 cm/s and triphasic. Mid superficial femoral artery is 180 cm/s and triphasic. Distal right superficial femoral artery measures 183 cm/s and is biphasic. Right popliteal velocity measures 119 cm/s and is triphasic. The posterior tibial artery velocity measures 139 cm/s and was biphasic. The anterior tibial artery velocity measures 112 cm/s and is biphasic. The dorsalis pedis velocity is 81 cm/s and biphasic. LEFT FEMORAL RUNOFF VELOCITIES: The left common femoral artery measures 111 cm/s and triphasic. The right profunda femoral artery is 82 cm/s and is triphasic. Right proximal superficial femoral artery measures 105 cm/s and triphasic. Mid superficial femoral artery is 110 cm/s and triphasic. Distal right superficial femoral artery measures 106 cm/s and is triphasic. Right popliteal velocity measures 96 cm/s and is triphasic. The posterior tibial artery velocity measures 63 cm/s and was biphasic. The anterior tibial artery velocity measures 137 cm/s and is biphasic. The dorsalis pedis velocity is 2 34 cm/s and triphasic. There is atherosclerotic present bilaterally and diffusely. IMPRESSION: 1. Normal right femoral peripheral arterial testing without evidence of hemodynamically significant stenosis. 2. There are normal inflow and outflow velocities within the left lower extremity. However, there is a likely dorsalis pedis stenosis in the left foot.
--- NOTE | 2016-07-01 13:55 | NUR ---
[facility] ASSIGNMENT [id number]
[2016-07-01 14:31] VITALS: BP 142/88
--- NOTE | 2016-07-01 14:35 | NUR ---
REPORT CALLED TO KEILY ON 1N. ROOM IS BEING CLEANED. PER SARY PT MAY COME UP WHEN ROOM SHOWS CLEAN REGARDLESS OF BLACKOUT PERIOD.
[2016-07-01 14:49] VITALS: BP 142/88
[2016-07-01 15:39] VITALS: BP 154/80
--- NOTE | 2016-07-01 19:14 | Cons- Cardiology ---
General Information and HPI Consulting Request Date of Consult: 07/01/16 Requested By: RENÉE CENTENO MD History of Present Illness: Trey is a 70 year old male with history of hypertension, dyslipidemia and three vessel coronary artery s/p CABG x 3. He also carries a history of renal insufficiency and alcohol abuse. His bypass grafts consist of a BRUNNER graft to the LAD, an SVG to the second OM and a separate SVG to the RCA. At baseline this patient is anemic and has had diverticulosis. This patient presented to the hospital for evaluation of discomfort and erythema in his leg. It is mildly swollen and he admits to picking at it. He denies fever or chills. He also reports shortness of breath without orthopnea and has decreased exercise tolerance. Otherwise he has no chest discomfort, lightheadedness or palpitations. He continues to be mildly anemic. A prior echocardiogram showed a normal EF of 60% with restrictive hemodynamics, mild left ventricular hypertrophy and severe pulmonary hypertension. The left atrium is markedly enlarged. In terms of cardiac valves he has mild to moderate mitral regurgitation, mild tricuspid regurgitation and mild pulmonic insufficiency. Allergies/Medications Allergies: Coded Allergies: No Known Allergies (06/30/16) Home Med List: Atorvastatin Calcium (Lipitor) 80 MG TABLET 1 TAB PO DAILY CHOLESTEROL ( Reported) Cholecalciferol (Vitamin D3) (Vitamin D) 1,000 UNIT TABLET 1 TAB PO DAILY VITAMIN (Reported) Cyanocobalamin (Vitamin B-12) (Vitamin B-12) 500 MCG TABLET 1 TAB PO DAILY VITAMIN (Reported) Ferrous Sulfate 325 MG (65 MG IRON) TABLET.DR 325 MG PO TID ANEMIA Folic Acid 1 MG TABLET 1 MG PO DAILY SUPPLEMENT Gabapentin 600 MG TABLET 1 TAB PO 4 TIMES/DAY PAIN CONTROL (Reported) Metoprolol Tartrate 25 MG TABLET 25 MG PO BID HEART Morphine Sulfate (Morphine Sulfate ER) 15 MG TABLET.ER 1 TAB PO TID PAIN ( Reported) Multivitamin (One Daily Multivitamin) 1 EACH TABLET 1 TAB PO DAILY SUPPLEMENT Oxycodone HCl 10 MG TABLET 1 TAB PO 4 TIMES/DAY PAIN (Reported) Pantoprazole Sodium (Protonix) 40 MG TABLET.DR 1 TAB PO DAILY GI (Reported) Sertraline HCl (Zoloft) 100 MG TABLET 1 TAB PO DAILY MENTAL HEALTH (Reported) Zolpidem Tartrate (Ambien) 5 MG TABLET 1 TAB PO QPMP PRN INSOMNIA (Reported) Past History Travel History Traveled to [place] past 21 day No Medical History Neurological: NONE EENT: NONE Cardiovascular: CAD, hypertension Respiratory: NONE Gastrointestinal: NONE Hepatic: NONE Renal: nephrolithiasis Musculoskeletal: chronic back pain, osteoarthritis Psychiatric: depression Endocrine: PARTIAL THYROIDECTOMY Blood Disorders: anemia, B12 deficiency Cancer(s): prostate cancer TIME PIECE REPAIRER/Reproductive: NONE Surgical History Surgical History: appendectomy, CABG (x3), prostatectomy, BILAT HIP REPLACEMENT BILAT CATARACT SX PARTIAL THYROIDECTOMY APPENDECTOMY Family History Relations & Conditions If Any: FATHER FH: prostate cancer Psychosocial History Where Do You Live? Home Who Do You Live With? spouse, child Services at Home: None Primary Language: Tuvaluan Smoking Status: Former Smoker ETOH Use: occasional use Illicit Drug Use: "THAT'S PROBABLY A PRIVACY ISSUE" Functional Ability ADLs Independent: dressing, eating, toileting, bathing. Ambulation: independent, cane IADLs Independent: shopping, housework, finances, food prep, telephone, transportation , medication admin. Exam & Diagnostic Data Vital Signs and I&O Vital Signs Date Time Temp Pulse Resp B/P Pulse O2 O2 Flow FiO2 Ox Delivery Rate 07/01 1749 68 128/70 07/01 1539 98.4 72 20 154/80 95 Room Air / 1449 99.5 72 16 142/88 94 Room Air / 1435 99.5 72 16 142/88 94 Room Air /08 1431 99.5 72 16 142/88 /08 1010 98.5 68 18 125/65 98 /08 0552 98.3 65 20 127/61 92 Room Air 07/01 0300 62 107/56 /08 0156 98/50 /08 0126 96 Room Air / 0043 120/62 / 2342 98.9 64 18 94/52 92 Room Air / 2114 98.9 86 18 100/68 98 Room Air 06/30 2044 100/58 06/30 2026 97 Room Air 06/30 202 92/60 /07 1951 78/50 Intake & Output 07/01 1600 /08 0800 03/08 0000 / 1600 06/30 0800 03/07 0000 Intake Total 400 Output Total 600 Balance -200 Intake, Oral 400 Output, Urine 600 Patient 165 lb 165 lb Weight Physical Exam: General: WD/ WN male in NAD; alert and oriented x 3 HEENT: NC/AT, PERRL, EOMI Neck: no JVD Heart: RRR with 2/6 systolic murmur Lungs: clear bilaterally Abdomen: soft, NT, +ve bowel sounds Extremities: no edema Assessment/Plan Assessment/Plan * This patient has shortness of breath that is likely multifactorial and due to anemia, mild diastolic dysfunction and deconditioning. He does have some scant crackles at his lung bases that may be due to atelectasis. Swelling is only noted in the right leg. This patient should be on aspirin. Will give lasix 40mg IV x one dose. Consult Acknowledgment - Thank you for your consult request.
[2016-07-01 23:50] VITALS: BP 138/80
[2016-07-02] VITALS (10 sets, daily range): BP systolic 86–138; BP diastolic 40–80
--- NOTE | 2016-07-02 06:44 | PN- Housestaff ---
CATY HANSON,NEIL 07/02/16 0644: Subjective Follow-up For: cellulitis shortness of breath Tele-Events Since Last Visit: SB-SR [id number] Subjective: Pt was seen today, was sitting comfortably at the edge of the bed. Still complains of shortness of breath on mild exertion. Not happy about the IV lasix given yesterday because it made him urinate frequently without significant relief of his right lower extremity swelling and shortness of breath. His breath did sound much clearer today (yesterday was wheezy and crackly). He still complains of 8/10 pain mostly on right lower extremity. The redness and swelling looks the same as yesterday, however swelling has improved on right knee. Review of Systems Constitutional: Reports: see HPI. Objective Last 24 Hrs of Vital Signs/I&O Vital Signs Date Time Temp Pulse Resp B/P Pulse O2 O2 Flow FiO2 Ox Delivery Rate 07/02 0837 98.2 61 18 94/58 92 Room Air 07/02 0800 74 20 100/60 / 0000 98.1 56 20 138/80 03/08 2350 98.1 56 20 138/80 98 Room Air 03/08 1749 68 128/70 03/08 1539 98.4 72 20 154/80 95 Room Air 03/08 1449 99.5 72 16 142/88 94 Room Air 03/08 1435 99.5 72 16 142/88 94 Room Air 03/08 1431 99.5 72 16 142/88 03/08 1010 98.5 68 18 125/65 98 Intake & Output 07/02 1600 07/02 0800 03/ 0000 Intake Total 300 710 Output Total 700 Balance -400 710 Intake, IV 100 110 Intake, Oral 200 600 Output, Urine 700 Physical Exam General Appearance: Alert, Oriented X3, Cooperative, No Acute Distress Skin: No Significant Lesion HEENT: Atraumatic Neck: Supple Cardiovascular: Normal S1, Normal S2, No Murmurs, tachycardic Lungs: Clear to Auscultation, Normal Air Movement Abdomen: Normal Bowel Sounds, Soft, No Tenderness Neurological: Normal Speech Extremities: erythema and swelling of RLE same as yesterday swelling of right knee resolved Current Medications: Current Medications Sig/Kim Start time Last Medication Dose Route Stop Time Status Admin Acetaminophen 650 MG Q6 PRN 06/30 2200 AC PO Ampicillin Sodium/ 0 .STK-MED ONE 07/01 1359 DC Sulbactam Sodium .ROUTE Ampicillin Sodium/ 3,000 MG Q6H 07/01 0230 AC 07/02 Sulbactam Sodium IV 0849 Sodium Chloride 100 ML Aspirin 81 MG DAILY 07/01 2144 AC 07/01 PO 2157 Atorvastatin Calcium 80 MG 1700 07/01 1700 AC 07/01 PO 2157 Cholecalciferol 1,000 IU DAILY 07/01 1000 AC 07/01 PO 1001 Cyanocobalamin 1,000 MCG DAILY 07/01 1000 AC 07/01 PO 0959 Enoxaparin Sodium 40 MG DAILY 07/01 1000 AC SC Enoxaparin Sodium 0 .STK-MED ONE 07/01 0954 DC SC Ferrous Sulfate 325 MG TID 07/01 0030 AC 07/01 PO 2240 Folic Acid 1 MG DAILY 07/01 1000 AC 07/01 PO 0959 Folic Acid 0 .STK-MED ONE 07/01 0953 DC PO Furosemide 40 MG ONCE ONE 07/01 2145 DC 07/01 IV 07/01 2146 2157 Gabapentin 600 MG Q6 07/01 1200 AC 07/02 PO 0629 Hydrocortisone/ See Dose Q4P PRN 07/01 1845 DC Pramoxine Insts (1) MI Metoprolol Tartrate 25 MG BID 07/01 1457 AC 07/01 PO 1749 Morphine Sulfate 15 MG Q8 07/01 1400 AC 07/02 PO 0629 Morphine Sulfate 0 .STK-MED ONE 07/01 1358 DC PO Multivitamins 1 TAB DAILY 07/01 1000 AC 07/01 Therapeutic PO 0959 Omeprazole 40 MG DAILY AC 07/01 0700 AC 07/02 PO 0628 Oxycodone HCl 10 MG Q6 07/01 1800 AC 07/02 PO 0629 Oxycodone HCl 0 .STK-MED ONE 07/01 1209 DC PO Oxycodone HCl 10 MG Q6 06/30 2359 DC 07/01 PO 1211 Pramoxine HCl See Dose Q4P PRN 07/02 0945 AC Insts (2) EXT Pramoxine HCl See Dose Q4 07/01 1800 DC Insts (3) EXT Pramoxine HCl See Dose Q4P PRN 07/01 1700 DC Insts (4) EXT Sertraline HCl 100 MG DAILY 07/01 1000 AC 03/08 PO 0959 Dose Instructions: (1)Hydrocortisone/Pramoxine: APPLY A SMALL AMOUNT DIRECTED (2)Pramoxine HCl: APPLY A SMALL AMOUNT (3)Pramoxine HCl: APPLY A SMALL AMOUNT (4)Pramoxine HCl: APPLY A SMALL AMOUNT Last 24 Hrs of Lab/Antwan Results Last 24 Hrs of Labs/Mics: Laboratory Tests 07/02/16 0637: CBC w Diff NO MAN DIFF REQ, RBC 3.28 L, MCV 87.8, MCH 27.8, RDW 35.2 H, MPV 9.8, Gran % 65.7, Lymphocytes % 17.5 L, Monocytes % 13.2 H, Eosinophils % 3.6, Basophils % 0 L, Absolute Granulocytes 3.1, Absolute Lymphocytes 0.8 L, Absolute Monocytes 0.6, Absolute Eosinophils 0.2, Absolute Basophils 0, PUBS MCHC 31.6 L Assessment/Plan Assessment: 70-year-old male with PMH of coronary artery disease status post CABG, hypertension, nephrolithiasis, depression, prostate cancer, rheumatoid arthritis , chronic pain, alcohol dependence, chronic anemia, B12 deficiency, recent hospitalization for symptomatic anemia requiring 3 units of transfusions, presented for worsening shortness of breath with right lower extremity swelling. # Shortness of breath, due to anemia? vs CHF? - He reports shortness of breath on mild exertion, after walking short distance, he gets winded once he sits down on the bed, trying to get his legs onto the bed. 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 - On first EKG, noted t wave flattening on v3 and v4 and minimal st depression on v3 and v4. On the subsquent 2 EKGs, the t wave flattening persists and I could no longer see ST depressions. - He was previously admitted 1 month ago for shortness of breath, found to have anemia and required 3 units tranfusions. Hg was 8.1 at discharge on jun 09. Denied blood in stool or urine. - He has cough (chronic) without sputum production. reports some wheezing. - CXR: no acute abnormality of the chest - probnp [id number] , but not in obvious CHF - Last echo May 2016: LFEF 60%. Pulmonary artery systolic pressure is moderate to severely elevated to 60mmHg. * Continue telemetry monitoring * Serial trops negative * Given 1 X 40 mg IV lasix, no improvement in SOB * Continue Metoprolol * Appreciate cardio consult with Dr. Stein * Guaiac all stool * Monitor h/h. 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 - His right lower extremity was red, swollen, and slightly tender from the ankle to knee, no appreciable difference in temperature between right and left. - His right knee also swollen, non-erythematous, warmer than left, active and passive ROM intact, nontender. Knee xray: Small suprapatellar effusion. Degenerative joint disease of the knee. No focal bone destruction. - He has a scab over the right 3rd toe, looks like necrotic ulcer. Arterial US of both lower extremities show Normal right femoral peripheral arterial testing without evidence of hemodynamically significant stenosis. There are normal inflow and outflow velocities within the left lower extremity. However, there is a likely dorsalis pedis stenosis in the left foot. - Doppler US negative for DVT * Continue Unasyn 3 g IV every 6 day # 3 * follow blood culture * Keep legs elevated * Emolient for dry skin * Pramoxine for pruritus # History of alcohol dependence with elevated t bili but normal transaminase - Serum alcohol < 10 * Check CIWA * Consider abdominal US * Continue Multivitamin 1 tablet by mouth daily * Continue Folic Acid 1 mg by mouth daily # Chronic pain * Continue MS Contin 15 mg by mouth every 8 hours * INC TO Oxycodone 15 mg by mouth every 6 hours * Continue Gabapentin 600 mg by mouth every 6 hours # History of insomnia * Continue Rozerem as needed * ambien 5 mg at bedtime prn sleep # Hyperlipidemia * Continue atorvastatin 80 mg by mouth daily # B12 deficiency * Continue cyanocobalamin 1000 g by mouth daily # Depression * Continue Zoloft 100 mg by mouth daily Diet-regular diet DVT prophylaxis-Lovenox CODE STATUS-full code Labs: no labs Problem List: 1. Cellulitis of right lower extremity 2. Chronic anemia 3. Shortness of breath Pain Ratin Pain Location: right lower extremity Pain Goal: Pain 7 or less Pain Plan: home meds Tomorrow's Labs & Rationales: none DVT/Prophylaxis: mechanical, pharmacological Consulting Request: Consulting Specialty: Cardiology RENÉE CENTENO MD 07/02/16 1109: Attending MD Review Statement Attending Statement Attending MD Statement: examined this patient, discuss w/resident/PA/[employer]ER GLASS WORKER, agreed w/resident/PA/[employer]ER GLASS WORKER, reviewed EMR data (avail) Attending Assessment/Plan: 70M PMH CAD s/p CABG, HTN, chronic anemia with recent admission for symptomatic anemia s/p EGD and colonoscopy with a total of 7 colon polyps removed, admitted for RLE cellulitis and dyspnea on exertion with EKG changes. Patient has chronic pruritis and dry skin with likely eczema, and is scratching his body during the entirety of the interview. His RLE has excoriations and is swollen, erythematous, and tender. There is no purulence. He reports 2 weeks of dyspnea on exertion, denies chest pain or palpitations. He otherwise feels well. EKG shows TWI in anterior leads without ST changes. Troponin is negative. Was initially hypotensive on admission but received appropriate IV fluids and appears euvolemic. Lactate initially elevated now normalized. Patient feels better today. He was given IV Lasix overnight and had generous diuresis, which displeased him. He does not wish for any further Lasix. His lungs are now clear and his dyspnea has improved. RLE swelling has improved slightly. 1. RLE cellulitis 2. Eczema 3. Dyspnea on exertion 4. Acute EKG changes 5. History of CAD s/p CABG 6. Iron deficiency anemia 7. Lactic acidosis 8. Hypotension Plan - Increase Roxicodone to 15mg q6h - Start Ambien 5mg qhs PRN - Continue on telemetry - Cardiology consult - Continue Unasyn - Leg elevation - Pramoxine cream for pruritis - Add an emolient for dry skin on lower extremities - Leg elevation - Follow cultures - Continue home medications - Will hold on diuretics for now, even though BNP is elevated, there are no clinical signs of CHF - Arterial doppler showed slight narrowing in dorsalis pedis, can follow up as outpatient - DVT PPx
[2016-07-02 08:09] LABS: ABSOLUTE BASOPHIL COUNT 0 /CUMM (0.0-0.2); ABSOLUTE EOSINOPHIL COUNT 0.2 /CUMM (0.0-0.7); ABSOLUTE GRANULOCYTE CT 3.1 /CUMM (1.4-6.5); ABSOLUTE LYMPH COUNT 0.8 /CUMM (1.2-3.4); ABSOLUTE MONOCYTE COUNT 0.6 /CUMM (0.10-0.60); BASOPHIL % 0 % (0.0-2.0); EOSINOPHIL % 3.6 % (0-5); GRANULOCYTE % 65.7 % (42.2-75.2); HEMATOCRIT 28.8 % (42-52); MEAN CORPUSCULAR HGB 27.8 PG (27.0-31.0); MEAN CORPUSCULAR HGB CONC 31.6 G/DL (33.0-37.0); MEAN CORPUSCULAR VOLUME 87.8 FL (80.0-94.0); MEAN PLATELET VOLUME 9.8 FL (7.4-10.4); PLATELET COUNT 173 /CUMM (130-400); RBC DISTRIBUTION WIDTH 35.2 % (11.5-14.5); RED BLOOD CELL CT 3.28 /CUMM (4.70-6.10); WHITE BLOOD CELL COUNT 4.7 /CUMM (4.8-10.8)
[2016-07-02] MEDS ORDERED: ASPIRIN81 M4 PO (16:28)
--- NOTE | 2016-07-02 16:30 | Patient Discharge Instructions ---
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 Please follow up with rheumatology, Dr. Mendoza. Diet Continue normal diet: Yes Activity Full Activity/No Limits: Yes Acute Coronary Syndrome Inclusion Criteria At DC or during hospital stay patient has or had the following: ACS DIAGNOSIS No Discharge Core Measures Meds if any: Prescribed or Continued at Discharge Meds if any: NOT Prescribed or Continued at Discharge Congestive Heart Failure Inclusion Criteria At DC or during hospital stay patient has or had the following: CHF DIAGNOSIS No Discharge Core Measures Meds if any: Prescribed or Continued at Discharge Meds if any: NOT Prescribed or Continued at Discharge Cerebrovascular accident Inclusion Criteria At DC or during hospital stay patient has or had the following: CVA/TIA Diagnosis No Discharge Core Measures Meds if any: Prescribed or Continued at Discharge Meds if any: NOT Prescribed or Continued at Discharge Venous thromboembolism Inclusion Criteria VTE Diagnosis No VTE Type NONE VTE Confirmed by (Test) NONE Discharge Core Measures - Per Current guidelines, there needs to be overlap - treatment for the first 5 days of Warfarin therapy. - If discharged on Warfarin prior to 5 days of - overlap therapy, the patient will need to be - assessed for post discharge needs including - *Post discharge parental anticoagulation - *Warfarin and/or parental anticoagulation education - *Follow up date to check INR post discharge At least 5 days overlap therapy as Inpatient No Meds if any: Prescribed or Continued at Discharge Note: Overlap Therapy is Warfarin and Anticoagulant Meds if any: NOT Prescribed or Continued at Discharge
--- NOTE | 2016-07-02 16:33 | NUR ---
NURSING NOTE; PT SIGNED OUT AMA. RISKS EXPLAINED BY MULTIPLE TIMES. PT CURRENTLY ON 10L NC WITH OXIMISER. O2 SATS 92%. PT UNABLE TO GET OXYGEN FOR HOME USE SECONDARY TO NO INSURANCE DESPITE MULTIPLE ATTEMPTS BY NARCOTICS AND/OR VICE DETECTIVE. KNOWING THIS, PT STILL WANTS TO SIGN OUT AMA. A+OX3. DISCHARGE MEDICATIONS FILLED BY [facility] FOR FREE. D/C INSTRUCTIONS EXPLAINED. PT HAS COPD CLINIC APPT FOR 07/14. PT BROUGHT TO LOBBY BY WHEELCHAIR. GETTING A RIDE HOME FROM FRIEND.
--- NOTE | 2016-07-02 17:53 | PN- Cardiology ---
Subjective Subjective: * Patient is lying supine without shortness of breath. No chest discomfort or lightheadedness, * sinus rhythm Objective Vital Signs and I&Os Vital Signs Date Time Temp Pulse Resp B/P Pulse O2 O2 Flow FiO2 Ox Delivery Rate 07/02 1545 98.3 64 18 88/52 92 Room Air 07/02 1400 65 07/02 1318 72 110/60 07/02 1216 61 86/40 07/02 1215 62 86/40 07/02 1200 65 86/40 07/02 0837 98.2 61 18 94/58 92 Room Air 07/02 0800 74 20 100/60 07/02 0000 98.1 56 20 138/80 07/01 2350 98.1 56 20 138/80 98 Room Air Intake & Output 07/02 1600 07/02 0800 07/02 0000 07/01 1600 07/01 0800 07/01 0000 Intake Total 860 300 710 400 Output Total 700 600 Balance 860 -400 710 -200 Intake, IV 100 100 110 Intake, Oral 760 200 600 400 Output, Urine 700 600 Patient 165 lb 165 lb Weight Physical Exam: General: WD/ WN male in NAD; alert and oriented x 3 Neck: no JVD Heart: RRR with 2/6 systolic murmur Lungs: clear bilaterally Extremities: right leg is erythematous with 2+ edema, no swelling on the left Assessment/Plan Assessment/Plan * This patient is no longer short of breath after receiving Lasix which resulted in a good diuresis. I would not give him any more diuretic at this time since he has a borderline blood pressure and is now breathing well. * Continue antibiotic therapy for his cellulitis. Continue telemetry? Yes
[2016-07-03] VITALS: BP 118/70
--- NOTE | 2016-07-03 07:43 | PN- Housestaff ---
CATY HANSON,NEIL 07/03/16 0743: Subjective Follow-up For: shortness of breath RLE swelling Tele-Events Since Last Visit: NSR 60-81 Subjective: When we first walked into his room, pt was asleep. He woke up and reports that he does not feel too good compared to yesterday. He did not appear to be in distress. He reports feeling congested and some chills. 8/10 pain. The swelling on RLE minimally improved, if not looks the same, still red and tense, and nontender, despite being on unasyn. He has not tried the anti itch cream because it was ordered as PRN, already changed to scheduled. LBM yesterday. Review of Systems Constitutional: Reports: see HPI. Objective Last 24 Hrs of Vital Signs/I&O Vital Signs Date Time Temp Pulse Resp B/P Pulse O2 O2 Flow FiO2 Ox Delivery Rate 07/03 0400 65 07/03 0000 Room Air 07/03 0000 63 118/70 07/02 2342 98.9 74 18 118/70 92 Room Air 07/02 2200 72 07/02 2110 73 110/60 07/02 2000 72 07/02 1800 72 07/02 1800 71 124/62 07/02 1600 98.3 64 18 88/52 07/02 1545 98.3 64 18 88/52 92 Room Air 07/02 1400 65 09 1318 72 110/60 07/02 1216 61 86/40 07/02 1215 62 86/40 / 1200 65 86/40 07/02 0837 98.2 61 18 94/58 92 Room Air 07/02 0800 74 20 100/60 Intake & Output 07/03 0800 07/03 0000 07/02 1600 Intake Total 240 740 860 Output Total Balance 240 740 860 Intake, IV 100 100 Intake, Oral 240 640 760 Physical Exam General Appearance: Alert, Oriented X3, Cooperative, No Acute Distress Skin: RLE still red and tense, non tender HEENT: Atraumatic Cardiovascular: Regular Rate, Normal S1, Normal S2, No Murmurs Lungs: Clear to Auscultation, Normal Air Movement Abdomen: Normal Bowel Sounds, Soft, No Tenderness Current Medications: Current Medications Sig/Kim Start time Last Medication Dose Route Stop Time Status Admin Acetaminophen 650 MG Q6 PRN 06/30 2200 AC PO Ampicillin Sodium/ 3,000 MG Q6H 07/01 0230 AC 07/03 Sulbactam Sodium IV 0304 Sodium Chloride 100 ML Aspirin 81 MG DAILY 07/01 2144 AC 07/02 PO 1040 Atorvastatin Calcium 80 MG 1700 07/01 1700 AC 07/02 PO 1806 Cholecalciferol 1,000 IU DAILY 07/01 1000 AC 07/02 PO 1216 Cyanocobalamin 1,000 MCG DAILY 07/01 1000 AC 07/02 PO 1216 Enoxaparin Sodium 40 MG DAILY 07/01 1000 AC 07/02 SC 1040 Ferrous Sulfate 325 MG TID 07/01 0030 AC 07/02 PO 2110 Folic Acid 1 MG DAILY 07/01 1000 AC 07/02 PO 1040 Gabapentin 600 MG Q6 07/01 1200 AC 07/03 PO 0614 Hydrocortisone/ See Dose Q4P PRN 07/01 1845 DC Pramoxine Insts (1) NH Metoprolol Tartrate 25 MG BID 07/01 1457 AC 07/02 PO 2110 Morphine Sulfate 15 MG Q8 07/01 1400 AC 07/03 PO 0615 Multivitamins 1 TAB DAILY 07/01 1000 AC 07/02 Therapeutic PO 1216 Omeprazole 40 MG DAILY AC 07/01 0700 AC 07/03 PO 0614 Oxycodone HCl 15 MG Q6P PRN 07/02 1401 AC 07/03 PO 0011 Oxycodone HCl 15 MG Q6 07/02 1200 DC 07/02 PO 07/02 1401 1216 Oxycodone HCl 10 MG Q6 07/01 1800 DC 07/02 PO 0629 Patient Medication 1 ED .STK-MED ONE 07/02 1347 IN Teaching ED 07/02 1348 Pramoxine HCl See Dose Q5 PRN 07/03 0745 AC Insts (2) EXT Pramoxine HCl See Dose Q4P PRN 07/02 0945 DC Insts (3) EXT Sertraline HCl 100 MG DAILY 07/01 1000 AC 07/02 PO 1216 Zolpidem Tartrate 5 MG AT BEDTIME PRN 07/02 2200 AC PO Dose Instructions: (1)Hydrocortisone/Pramoxine: APPLY A SMALL AMOUNT DIRECTED (2)Pramoxine HCl: APPLY A SMALL AMOUNT (3)Pramoxine HCl: APPLY A SMALL AMOUNT Assessment/Plan Assessment: 70-year-old male with PMH of coronary artery disease status post CABG, hypertension, nephrolithiasis, depression, prostate cancer, rheumatoid arthritis , chronic pain, alcohol dependence, chronic anemia, B12 deficiency, recent hospitalization for symptomatic anemia requiring 3 units of transfusions, presented for worsening shortness of breath with right lower extremity swelling for 3 days prior to admission. He was admitted to telemetry for nonspecific EKG changes with 3Xnegative tro[place] [address],although he does not appear to be in CHF. He did have crackles on admission, which resolved with 1Xlasix, although reports no improvement in shortness of breath. He refused further lasix due to inconvenience of frequent urination and lack of relief of his shortness of breath. His hemoglobin has been low but stable. He was started on unasyn on admission for presumable cellulitis, most likely due to infected open wound due to chronic scratching (5cm linear lesion on the lateral left lower extremity). The right lower extremity was red and edematous from the ankle to just below the knee, nontender. Despite being on unasyn for 2 days, I have not seen significant improvement in the way the right lower extremity looks. He had oral temp of 100 at 8am on July 03. He did report chills and congestion. He specifically denies sore throat, dysuria. He does have cough at baseline, no sputum. Abx changed to clindamycin. Labs ordered: CBC, BEP , BCX2, UA, Urine culture, flu swab, strep swab. Consider CXR. Would consider ID consult. Changed abx to clindamycin to cover for MRSA on day #3. He also came in with swelling of the right knee which was tender, although non- erythematous, and intact passive and active ROM. Knee xray done and showed suprapatellar effusion. The knee swelling resolved after 1 day. He had a small necrotic lesion on the right 3rd toe, without history of DM. Due to concerns of PAD, arterial doppler obtained, and showed no stenosis except for likely dorsalis pedis stenosis in the LEFT foot, which can be followed up as outpatient. Problem list: - Persistent shortness of breath on exertion, most likely secondary to anemia vs CHF - EKG changes with negative troponin - RLE cellulitis on unasyn - Right knee swelling (resolved) - Right 3rd toe necrotic lesion # Shortness of breath, due CHF? vs anemia? [place] [address], with mild improvement of SOB after 1XIV lasix. Hg stable. - He reports shortness of breath on mild exertion, after walking short distance, he gets winded once he sits down on the bed, trying to get his legs onto the bed. 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 - On first EKG, noted t wave flattening on v3 and v4 and minimal st depression on v3 and v4. On the subsquent 2 EKGs, the t wave flattening persists and I could no longer see ST depressions. - He was previously admitted 1 month ago for shortness of breath, found to have anemia and required 3 units tranfusions. Hg was 8.1 at discharge on jun 09. Denied blood in stool or urine. - He has cough (chronic) without sputum production. reports some wheezing. - CXR: no acute abnormality of the chest - probnp 74106 , but not in obvious CHF - Last echo May 2016: LFEF 60%. Pulmonary artery systolic pressure is moderate to severely elevated to 60mmHg. * Discontinue telemetry monitoring * Transfer to * Serial trops negative * Given 1 X 40 mg IV lasix, improvement in crackles. 20 mg po lasix started on . * Continue Metoprolol * Appreciate cardio consult with Dr. Stein * Bassemaiac all stool * Monitor h/h. 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 - His right lower extremity was red, swollen, and slightly tender from the ankle to knee, no appreciable difference in temperature between right and left. - His right knee also swollen, non-erythematous, warmer than left, active and passive ROM intact, nontender. Knee xray: Small suprapatellar effusion. Degenerative joint disease of the knee. No focal bone destruction. - He has a scab over the right 3rd toe, looks like necrotic ulcer. Arterial US of both lower extremities show Normal right femoral peripheral arterial testing without evidence of hemodynamically significant stenosis. There are normal inflow and outflow velocities within the left lower extremity. However, there is a likely dorsalis pedis stenosis in the left foot. - Doppler US negative for DVT * Unasyn 3 g IV every 6 given for 2 days with minimal improvement. Changed to clindamycin on day #3. Today is abx day # 3 * follow blood culture * Keep legs elevated * Emolient for dry skin * Pramoxine for pruritus * He had oral temp of 100 at 8am on July 03. He did report chills and congestion. He specifically denies sore throat, dysuria. He does have cough at baseline, no sputum. * Follow up CBC, BEP, BCX2, UA, Urine culture, flu swab, strep swab. * Consider CXR. * Would consider ID consult. # History of alcohol dependence with elevated t bili but normal transaminase - Serum alcohol < 10 * Check CIWA * Consider abdominal US * Continue Multivitamin 1 tablet by mouth daily * Continue Folic Acid 1 mg by mouth daily # Chronic pain * Continue MS Contin 15 mg by mouth every 8 hours * INC TO Oxycodone 15 mg by mouth every 6 hours * Continue Gabapentin 600 mg by mouth every 6 hours # History of insomnia * Continue Rozerem as needed * ambien 5 mg at bedtime prn sleep # Hyperlipidemia * Continue atorvastatin 80 mg by mouth daily # B12 deficiency * Continue cyanocobalamin 1000 g by mouth daily # Depression * Continue Zoloft 100 mg by mouth daily Diet-regular diet DVT prophylaxis-Lovenox CODE STATUS-full code Labs: no labs Problem List: 1. Cellulitis of right lower extremity 2. Shortness of breath Pain Ratin Pain Location: everywhere Pain Goal: Pain 7 or less Pain Plan: home meds inc roxicodone to 15 Tomorrow's Labs & Rationales: none DVT/Prophylaxis: mechanical, pharmacological Consulting Request: Consulting Specialty: Cardiology RENÉE CENTENO MD 07/03/16 1103: Attending MD Review Statement Attending Statement Attending MD Statement: examined this patient, discuss w/resident/PA/GLUER MACHINE SETUP OPERATOR, agreed w/resident/PA/GLUER MACHINE SETUP OPERATOR, reviewed EMR data (avail) Attending Assessment/Plan: 70M PMH CAD s/p CABG, HTN, chronic anemia with recent admission for symptomatic anemia s/p EGD and colonoscopy with a total of 7 colon polyps removed, admitted for RLE cellulitis and dyspnea on exertion with EKG changes. Patient has chronic pruritis and dry skin with likely eczema, and is scratching his body during the entirety of the interview. His RLE has excoriations and is swollen, erythematous, and tender. There is no purulence. He reports 2 weeks of dyspnea on exertion, denies chest pain or palpitations. He otherwise feels well. EKG shows TWI in anterior leads without ST changes. Troponin is negative. Was initially hypotensive on admission but received appropriate IV fluids and appears euvolemic. Lactate initially elevated now normalized. Slight fever overnight 100.6. Patient still reports pain but feels well otherwise. Leg appears unchanged. 1. RLE cellulitis 2. Eczema 3. Dyspnea on exertion 4. Acute EKG changes 5. History of CAD s/p CABG 6. Iron deficiency anemia 7. Lactic acidosis 8. Hypotension Plan - Discontinue telemetry - Discontinue Unasyn - Start Clindamycin - Increase Roxicodone to 15mg q6h - Start Ambien 5mg qhs PRN - Cardiology consult - Leg elevation - Pramoxine cream for pruritis - Add an emolient for dry skin on lower extremities - Leg elevation - Follow cultures - Continue home medications - Arterial doppler showed slight narrowing in dorsalis pedis, can follow up as outpatient - DVT PPx
[2016-07-03 08:27] VITALS: BP 120/60
[2016-07-03 11:33] LABS: ABSOLUTE BASOPHIL COUNT 0 /CUMM (0.0-0.2); ABSOLUTE EOSINOPHIL COUNT 0.1 /CUMM (0.0-0.7); ABSOLUTE GRANULOCYTE CT 4.5 /CUMM (1.4-6.5); ABSOLUTE LYMPH COUNT 0.4 /CUMM (1.2-3.4); ABSOLUTE MONOCYTE COUNT 0.6 /CUMM (0.10-0.60); BASOPHIL % 0 % (0.0-2.0); EOSINOPHIL % 1.7 % (0-5); GRANULOCYTE % 80.6 % (42.2-75.2); HEMATOCRIT 28.2 % (42-52); MEAN CORPUSCULAR HGB CONC 31.8 G/DL (33.0-37.0); MEAN CORPUSCULAR VOLUME 88.3 FL (80.0-94.0); MEAN PLATELET VOLUME 8.9 FL (7.4-10.4); PLATELET COUNT 167 /CUMM (130-400); RBC DISTRIBUTION WIDTH 34.6 % (11.5-14.5); RED BLOOD CELL CT 3.19 /CUMM (4.70-6.10); WHITE BLOOD CELL COUNT 5.6 /CUMM (4.8-10.8)
[2016-07-03 15:49] VITALS: BP 112/58
--- NOTE | 2016-07-03 17:38 | PN- Cardiology ---
Subjective Subjective: * Breathing is slightly worse than yesterday. Patient does not like taking lasix. * low grade fever ealier today Objective Vital Signs and I&Os Vital Signs Date Time Temp Pulse Resp B/P Pulse O2 O2 Flow FiO2 Ox Delivery Rate 07/03 1549 99.7 58 18 112/58 94 Room Air 07/03 1224 99.5 07/03 1030 100.9 07/03 0946 73 120/60 07/03 0827 100.0 73 18 120/60 92 Room Air 07/03 0400 65 07/03 0000 Room Air 07/03 0000 63 118/70 07/02 2342 98.9 74 18 118/70 92 Room Air 07/02 2200 72 07/02 2110 73 110/60 07/02 2000 72 07/02 1800 72 07/02 1800 71 124/62 Intake & Output 07/03 1600 07/03 0800 07/03 0000 07/02 1600 07/02 0800 07/02 0000 Intake Total 480 240 740 860 300 710 Output Total 700 Balance 480 240 740 860 -400 710 Intake, IV 100 100 100 110 Intake, Oral 480 240 640 760 200 600 Output, Urine 700 Physical Exam: General: WD/ WN male in NAD; alert and oriented x 3 Neck: no JVD Heart: RRR with 2/6 systolic murmur Lungs: scant crackles at the bases bilaterally Extremities: right leg is erythematous with 2+ edema, no swelling on the left Assessment/Plan Assessment/Plan * This patient has mild shortness of breath with scant crackles at the bases and right leg edema. He does not like taking Lasix due to frequent urination but is willing to try a dose that is smaller that that received a couple days ago. Begin lasix 20mg PO daily. * Continue antibiotic therapy for his cellulitis. Continue telemetry? No
[2016-07-03 22:00] VITALS: BP 110/60
[2016-07-04] VITALS (7 sets, daily range): BP systolic 100–120; BP diastolic 52–60
--- NOTE | 2016-07-04 07:48 | PN- Housestaff ---
See Addendum Subjective Follow-up For: Shortness of breath RLE swelling Tele-Events Since Last Visit: Off tele. Subjective: Patient seen and examined at bedside this AM. He is laying in bed without acute distress. He reports he did not sleep well for unknown reasons. Patient reports he has mild pain in his area of cellulitis. Review of Systems Constitutional: Denies: fever. EENTM: Denies: visual changes. Cardiovascular: Denies: chest pain, palpitations. Respiratory: Denies: cough, short of breath. Gastrointestinal: Denies: abdominal pain. Genitourinary: Denies: dysuria. Musculoskeletal: Reports: muscle pain (Area of cellulitis). Skin: Reports: lesions (Cellulitis). Neurological/Psychological: Denies: confusion, headache. Hematologic/Endocrine: Denies: bleeding. Objective Last 24 Hrs of Vital Signs/I&O Vital Signs Date Time Temp Pulse Resp B/P Pulse O2 O2 Flow FiO2 Ox Delivery Rate 07/04 1006 63 120/52 07/04 0800 Room Air 07/04 0800 98.7 63 18 120/52 07/04 0755 98.7 63 18 120/52 91 07/03 2200 97.8 64 20 110/60 96 Room Air 07/03 2120 62 110/60 07/03 1549 99.7 58 18 112/58 94 Room Air 07/03 1224 99.5 Intake & Output 07/04 1600 07/04 0800 07/04 0000 Intake Total 200 100 Output Total Balance 200 100 Intake, Oral 200 100 Patient 165 lb Weight Physical Exam General Appearance: Alert, Oriented X3, Cooperative, No Acute Distress Skin: RLE erythematous, nontender to palpation, calf muscle slightly tender HEENT: Atraumatic, Mucous Membr. moist/pink Neck: Supple Lymphatic: Cervical nl Cardiovascular: Regular Rate, Normal S1, Normal S2, No Murmurs Lungs: Clear to Auscultation, Normal Air Movement Abdomen: Normal Bowel Sounds, Soft, No Tenderness Neurological: Normal Speech Current Medications: Current Medications Sig/Kim Start time Last Medication Dose Route Stop Time Status Admin Acetaminophen 650 MG Q6 PRN 06/30 2200 AC 07/03 PO 0947 Aspirin 81 MG DAILY 07/01 2144 AC 07/04 PO 1006 Atorvastatin Calcium 80 MG 1700 07/01 1700 AC 07/03 PO 1725 Cholecalciferol 1,000 IU DAILY 07/01 1000 AC 07/04 PO 1006 Clindamycin 600 MG Q8H 07/03 1000 AC 07/04 Dextrose/Water 50 ML IV 1006 Cyanocobalamin 1,000 MCG DAILY 07/01 1000 AC 07/04 PO 1006 Enoxaparin Sodium 40 MG DAILY 07/01 1000 AC 07/03 SC 0948 Ferrous Sulfate 325 MG TID 07/01 0030 AC 07/04 PO 1006 Folic Acid 1 MG DAILY 07/01 1000 AC 07/04 PO 1006 Furosemide 20 MG DAILY 07/03 1815 AC PO Gabapentin 600 MG Q6 07/01 1200 AC 07/04 PO 0600 Metoprolol Tartrate 25 MG BID 07/01 1457 AC 07/04 PO 1006 Morphine Sulfate 15 MG Q8 07/01 1400 AC 07/04 PO 0656 Multivitamins 1 TAB DAILY 07/01 1000 AC 07/04 Therapeutic PO 1006 Omeprazole 40 MG DAILY AC 07/01 0700 AC 07/04 PO 0656 Oxycodone HCl 15 MG Q6P PRN 07/02 1401 AC 07/04 PO 1017 Potassium Chloride 40 MEQ ONCE ONE 07/03 1330 DC 07/03 PO 07/03 1331 1500 Pramoxine HCl See Dose Q5 PRN 07/03 0745 AC Insts (1) EXT Sertraline HCl 100 MG DAILY 07/01 1000 AC 07/04 PO 1006 Zolpidem Tartrate 5 MG AT BEDTIME PRN 07/02 2200 AC PO Dose Instructions: (1)Pramoxine HCl: APPLY A SMALL AMOUNT Orders Radiology Findings: Lower extremity doppler: IMPRESSION: 1. Normal right femoral peripheral arterial testing without evidence of hemodynamically significant stenosis. 2. There are normal inflow and outflow velocities within the left lower extremity. However, there is a likely dorsalis pedis stenosis in the left foot. Knee XRay: IMPRESSION: Small suprapatellar effusion. Degenerative joint disease of the knee. No focal bone destruction. Assessment/Plan Assessment: Mr. Vyas is a 70-year-old male with PMH of coronary artery disease status post CABG, hypertension, nephrolithiasis, depression, prostate cancer, rheumatoid arthritis, chronic pain, alcohol dependence, chronic anemia, B12 deficiency, recent hospitalization for symptomatic anemia requiring 3 units of transfusions, presented for worsening shortness of breath with right lower extremity swelling for 3 days prior to admission. He was admitted to telemetry for nonspecific EKG changes with 3Xnegative trops[place] [address], although he does not appear to be in CHF. He did have crackles on admission, which resolved with 1X lasix, although reports no improvement in shortness of breath. He refused further lasix due to inconvenience of frequent urination and lack of relief of his shortness of breath. His hemoglobin has been low but stable. He was started on unasyn on admission for presumable cellulitis, most likely due to infected open wound due to chronic scratching (5 cm linear lesion on the lateral left lower extremity). The right lower extremity was red and edematous from the ankle to just below the knee, nontender. He has been on unasyn for 3 days. He had oral temp of 100 at 8am on July 03. He did report chills and congestion. He specifically denied sore throat, dysuria. He does have cough at baseline, no sputum. Abx changed to clindamycin. Changed abx to clindamycin to cover for MRSA on day #3. He also came in with swelling of the right knee which was tender, although non- erythematous, and intact passive and active ROM. Knee xray done and showed suprapatellar effusion. The knee swelling resolved after 1 day. He had a small necrotic lesion on the right 3rd toe, without history of DM. Due to concerns of PAD, arterial doppler obtained, and showed no stenosis except for likely dorsalis pedis stenosis in the LEFT foot, which can be followed up as outpatient. Problem list: - Persistent shortness of breath on exertion, most likely secondary to anemia vs CHF - EKG changes with negative troponin - RLE cellulitis on unasyn - Right knee swelling (resolved) - Right 3rd toe necrotic lesion # Shortness of breath, due CHF? vs anemia? [place] [address], with mild improvement of SOB after 1XIV lasix. Hg stable. - He reports shortness of breath on mild exertion, after walking short distance, he gets winded once he sits down on the bed, trying to get his legs onto the bed. The SOB is stable today. - On first EKG, noted t wave flattening on v3 and v4 and minimal st depression on v3 and v4. On the subsquent 2 EKGs, the t wave flattening persisted and I could no longer see ST depressions. - He was previously admitted 1 month ago for shortness of breath, found to have anemia and required 3 units tranfusions. Hg was 8.1 at discharge on jun 09. Denied blood in stool or urine. - He has cough (chronic) without sputum production. reports some wheezing. - CXR: no acute abnormality of the chest - probnp [id number] , but not in obvious CHF - Last echo May 2016: LFEF 60%. Pulmonary artery systolic pressure is moderate to severely elevated to 60mmHg. * Discontinue telemetry monitoring and transfer to * Serial trops negative * Given 1 X 40 mg IV lasix, improvement in crackles. 20 mg po lasix started on however patient is refusing due to side effect of increased urination. * Continue Metoprolol * Appreciate cardio consult with Dr. Stein appreciated * Guaiac all stool * Monitor h/h. 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 - His right lower extremity was red, swollen, and slightly tender from the ankle to knee, no appreciable difference in temperature between right and left. - His right knee also swollen, non-erythematous, warmer than left, active and passive ROM intact, nontender. Knee xray: Small suprapatellar effusion. Degenerative joint disease of the knee. No focal bone destruction. - He has a scab over the right 3rd toe, looks like necrotic ulcer. Arterial US of both lower extremities show Normal right femoral peripheral arterial testing without evidence of hemodynamically significant stenosis. There are normal inflow and outflow velocities within the left lower extremity. However, there is a likely dorsalis pedis stenosis in the left foot. - Doppler US negative for DVT * Unasyn 3 g IV every 6 given for 2 days, minimal improvement noted. Changed to clindamycin on day #3. Today is abx day # 4 and RLE cellulitis appears to be improving. * follow blood culture * Keep legs elevated * Emolient for dry skin * Pramoxine for pruritus * He had oral temp of 100 at 8am on July 03. He did report chills and congestion. He specifically denied sore throat, dysuria. He does have cough at baseline, no sputum. * Continue to monitor for clinical improvement in RLE cellulitis # History of alcohol dependence with elevated t bili but normal transaminase - Serum alcohol < 10 * Check CIWA * Consider abdominal US * Continue Multivitamin 1 tablet by mouth daily * Continue Folic Acid 1 mg by mouth daily # Chronic pain * Continue MS Contin 15 mg by mouth every 8 hours * INC TO Oxycodone 15 mg by mouth every 6 hours * Continue Gabapentin 600 mg by mouth every 6 hours # History of insomnia * Continue Rozerem as needed * ambien 5 mg at bedtime prn sleep # Hyperlipidemia * Continue atorvastatin 80 mg by mouth daily # B12 deficiency * Continue cyanocobalamin 1000 g by mouth daily # Depression * Continue Zoloft 100 mg by mouth daily Diet-regular diet DVT prophylaxis-Lovenox CODE STATUS-full code Labs: no labs Problem List: 1. Cellulitis of right lower extremity 2. Shortness of breath Pain Ratin Pain Location: RLE Pain Goal: Pain 4 or less Pain Plan: Tylenol for mild pain, MS Contin 15 mg PO Q8 Tomorrow's Labs & Rationales: CBC (dropping H&H) Consulting Request: Consulting Specialty: Cardiology
[2016-07-05 08:00] VITALS: BP 120/64
[2016-07-05 08:03] VITALS: BP 120/64
--- NOTE | 2016-07-05 08:42 | PN- Housestaff ---
MARY ROBLES 07/05/16 0842: Subjective Follow-up For: Cellulitis of the right lower limb Shortness of breath on exertion Complaints: pain Tele-Events Since Last Visit: Patient is not on shelter monitor Subjective: Reviewed the patient seated comfortably on the bed watching television. The patient reports that he did not sleep well due to pain in his wrist or on his right lower limb and both feet he denies any fevers or chills overnight denies any vomiting and reports taking his meals well. Review of Systems Constitutional: Denies: chills, fever. Cardiovascular: Denies: chest pain, palpitations. Respiratory: Denies: cough, short of breath. Gastrointestinal: Denies: abdominal pain, nausea, vomiting. Genitourinary: Denies: no symptoms. Musculoskeletal: Reports: see HPI. Skin: Reports: see HPI. Comments: All other systems reviewed and are negative Objective Last 24 Hrs of Vital Signs/I&O Vital Signs Date Time Temp Pulse Resp B/P Pulse O2 O2 Flow FiO2 Ox Delivery Rate 07/05 0902 54 120/64 07/05 0803 99.0 54 18 120/64 94 Room Air 07/05 0800 Room Air 07/05 0800 99.0 54 18 120/64 07/04 2200 98.2 62 20 100/60 94 Room Air 07/04 2125 60 100/60 07/04 1800 98.7 51 18 118/58 /11 1627 98.7 51 18 118/58 93 Room Air 07/04 1600 98.7 51 18 118/58 /11 1200 98.7 63 18 120/52 Intake & Output 07/05 1600 07/05 0800 07/05 0000 Intake Total 200 690 Output Total Balance 200 690 Intake, IV 70 Intake, Oral 200 620 Physical Exam General Appearance: Alert, Oriented X3, Cooperative, No Acute Distress Skin: cellulitis lesion in the right lower limb with excoriation chowdhury HEENT: Atraumatic, Mucous Membr. moist/pink Neck: Supple, No JVD Cardiovascular: Regular Rate, Normal S1, Normal S2 Lungs: Clear to Auscultation, Normal Air Movement Abdomen: Normal Bowel Sounds, Soft, No Tenderness Neurological: Normal Speech, Normal Tone Extremities: No Clubbing, No Cyanosis, right lower limb is swollen compared to the left and has receding cellulitis Current Medications: Current Medications Sig/Kim Start time Last Medication Dose Route Stop Time Status Admin Acetaminophen 650 MG Q6 PRN 06/30 2200 AC 07/03 PO 0947 Aspirin 81 MG DAILY 07/01 2144 AC 07/05 PO 0902 Atorvastatin Calcium 80 MG 1700 07/01 1700 AC 07/04 PO 1659 Cholecalciferol 1,000 IU DAILY 07/01 1000 AC 07/05 PO 0902 Clindamycin 600 MG Q8H 07/03 1000 AC 07/05 Dextrose/Water 50 ML IV 0902 Cyanocobalamin 1,000 MCG DAILY 07/01 1000 AC 07/05 PO 0902 Enoxaparin Sodium 40 MG DAILY 07/01 1000 AC 07/05 SC 0902 Ferrous Sulfate 325 MG TID 07/01 0030 AC 07/05 PO 0902 Folic Acid 1 MG DAILY 07/01 1000 AC 07/05 PO 0902 Furosemide 20 MG DAILY 07/03 1815 AC PO Gabapentin 600 MG Q6 07/01 1200 AC 07/05 PO 0539 Metoprolol Tartrate 25 MG BID 07/01 1457 AC 07/05 PO 0902 Morphine Sulfate 15 MG Q8 07/01 1400 AC 07/05 PO 0539 Multivitamins 1 TAB DAILY 07/01 1000 AC 07/05 Therapeutic PO 0902 Omeprazole 40 MG DAILY AC 07/01 0700 AC 07/05 PO 0539 Oxycodone HCl 20 MG Q6P PRN 07/04 1745 AC 07/05 PO 0731 Oxycodone HCl 15 MG Q6P PRN 07/02 1401 DC 07/04 PO 1704 Pramoxine HCl See Dose Q5 PRN 07/03 0745 AC Insts (1) EXT Sertraline HCl 100 MG DAILY 07/01 1000 AC 07/05 PO 0902 Zolpidem Tartrate 5 MG AT BEDTIME 07/04 2200 AC 07/04 PO 2125 Zolpidem Tartrate 5 MG AT BEDTIME PRN 07/02 2200 AC PO Dose Instructions: (1)Pramoxine HCl: APPLY A SMALL AMOUNT Last 24 Hrs of Lab/Antwan Results Last 24 Hrs of Labs/Mics: Laboratory Tests 07/05/16 0623: Anion Gap 7, Estimated GFR > 60, BUN/Creatinine Ratio 11.8, CBC w Diff NO MAN DIFF REQ, RBC 3.22 L, MCV 88.8, MCH 27.6, RDW 34.8 H, MPV 9.3, Gran % 64.7, Lymphocytes % 19.4 L, Monocytes % 11.5 H, Eosinophils % 4.2, Basophils % 0.2, Absolute Granulocytes 3.4, Absolute Lymphocytes 1.0 L, Absolute Monocytes 0.6, Absolute Eosinophils 0.2, Absolute Basophils 0, PUBS MCHC 31.1 L Assessment/Plan Assessment: Mr. Vyas is a 70-year-old male with PMH of coronary artery disease status post CABG, hypertension, nephrolithiasis, depression, prostate cancer, rheumatoid arthritis, chronic pain, alcohol dependence, chronic anemia, B12 deficiency, recent hospitalization for symptomatic anemia requiring 3 units of transfusions, presented for worsening shortness of breath with right lower extremity swelling for 3 days prior to admission. 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 Patient started on Unasyn and changed to clindamycin. Low grade temperature highest of 99 overnight. He reports slight improvement with cellulitis morphine from the knee downward about 5 cm from the knee cap. We will continue with IV clindamycin and elevation of the lower limb History of alcohol dependence with elevated t bili but normal transaminase Serum alcohol < 10 admission CIWA scores has been 0 since admission. Will continue with multivitamin and folic acid and thiamine supplementation and consider increasing range of doing CIWA to every 4 hours Chronic pain Continue MS Contin 15 mg by mouth every 8 hours. INC TO Oxycodone 15 mg by mouth every 6 hours. Continue Gabapentin 600 mg by mouth every 6 hours History of insomnia Continue Rozerem as needed. ambien 5 mg at bedtime prn sleep Despite these medications the patient continued to report not sleeping well Hyperlipidemia Continue atorvastatin 80 mg by mouth daily B12 deficiency Continue cyanocobalamin 1000 g by mouth daily Depression Continue Zoloft 100 mg by mouth daily Diet-regular diet DVT prophylaxis-Lovenox CODE STATUS-full code Labs: no labs Problem List: 1. Shortness of breath 2. Cellulitis of right lower extremity 3. Chronic anemia Pain Ratin Pain Location: Wrist and hands and lower limb Pain Goal: Pain 4 or less Pain Plan: Continue with Roxicodone and gabapentin Tomorrow's Labs & Rationales: No need of lab work DVT/Prophylaxis: pharmacological Consulting Request: Consulting Specialty: Cardiology RENÉE CENTENO MD 07/05/16 1524: Attending MD Review Statement Attending Statement Attending MD Statement: examined this patient, discuss w/resident/PA/SCROLL SHEAR OPERATOR, agreed w/resident/PA/SCROLL SHEAR OPERATOR, reviewed EMR data (avail) Attending Assessment/Plan: 70M PMH CAD s/p CABG, HTN, chronic anemia with recent admission for symptomatic anemia s/p EGD and colonoscopy with a total of 7 colon polyps removed, admitted for RLE cellulitis and dyspnea on exertion with EKG changes. Patient has chronic pruritis and dry skin with likely eczema, and is scratching his body during the entirety of the interview. His RLE has excoriations and is swollen, erythematous, and tender. There is no purulence. He reports 2 weeks of dyspnea on exertion, denies chest pain or palpitations. He otherwise feels well. EKG shows TWI in anterior leads without ST changes. Troponin is negative. Was initially hypotensive on admission but received appropriate IV fluids and appears euvolemic. Lactate initially elevated now normalized. Leg much improved today. Remains afebrile, Pain improved. Still refusing Lasix. 1. RLE cellulitis 2. Eczema 3. Dyspnea on exertion 4. Acute EKG changes 5. History of CAD s/p CABG 6. Iron deficiency anemia 7. Lactic acidosis 8. Hypotension Plan - Discontinue telemetry - Continue Clindamycin - Continue Roxicodone 20mg q6h PRN - Start Ambien 5mg qhs PRN - Cardiology consult - Leg elevation - Pramoxine cream for pruritis - Add an emolient for dry skin on lower extremities - Leg elevation - Follow cultures - Continue home medications - Arterial doppler showed slight narrowing in dorsalis pedis, can follow up as outpatient - DVT PPx - Anticipated discharge tomorrow on Clindamycin and Lasix
[2016-07-05 09:02] LABS: ABSOLUTE BASOPHIL COUNT 0 /CUMM (0.0-0.2); ABSOLUTE EOSINOPHIL COUNT 0.2 /CUMM (0.0-0.7); ABSOLUTE GRANULOCYTE CT 3.4 /CUMM (1.4-6.5); ABSOLUTE MONOCYTE COUNT 0.6 /CUMM (0.10-0.60); BASOPHIL % 0.2 % (0.0-2.0); EOSINOPHIL % 4.2 % (0-5); GRANULOCYTE % 64.7 % (42.2-75.2); HEMATOCRIT 28.6 % (42-52); MEAN CORPUSCULAR HGB 27.6 PG (27.0-31.0); MEAN CORPUSCULAR HGB CONC 31.1 G/DL (33.0-37.0); MEAN CORPUSCULAR VOLUME 88.8 FL (80.0-94.0); MEAN PLATELET VOLUME 9.3 FL (7.4-10.4); PLATELET COUNT 184 /CUMM (130-400); RBC DISTRIBUTION WIDTH 34.8 % (11.5-14.5); RED BLOOD CELL CT 3.22 /CUMM (4.70-6.10); WHITE BLOOD CELL COUNT 5.3 /CUMM (4.8-10.8)
[2016-07-05 12:00] VITALS: BP 116/60
[2016-07-05 16:38] VITALS: BP 112/70
--- NOTE | 2016-07-05 18:53 | PN- Cardiology ---
Subjective Subjective: Laying flat. Still with some pain in his legs. Still with mild dyspnea on exertion without chest pain or palpitations. Objective Vital Signs and I&Os Vital Signs Date Time Temp Pulse Resp B/P Pulse O2 O2 Flow FiO2 Ox Delivery Rate 07/05 1638 98.1 71 18 112/70 95 Room Air 07/05 1200 98.9 61 16 116/60 07/05 0902 54 120/64 07/05 0803 99.0 54 18 120/64 94 Room Air 07/05 0800 Room Air 07/05 0800 99.0 54 18 120/64 07/04 2200 98.2 62 20 100/60 94 Room Air 07/04 2125 60 100/60 Intake & Output 07/05 1600 07/05 0800 07/05 0000 07/04 1600 07/04 0800 07/04 0000 Intake Total 479 200 690 299 200 100 Output Total Balance 479 200 690 299 200 100 Intake, IV 134 70 74 Intake, Oral 345 200 620 225 200 100 Patient 165 lb Weight Physical Exam: General: no apparent distress. Alert. Lying flat Eyes: No obvious scleral icterus. HEENT: No jugular venous distention or abnormal jugular venous pulsations. Cardiovascular: Normal intensity S1/S2. PMI not grossly displaced. Respiratory: Lungs clear to auscultation bilaterally. Abdomen: no guarding or rebound tenderness. Musculoskeletal: No clubbing or cyanosis noted, trace lower extremity edema Skin: Warm, excoriations noted Current Medications: Current Medications Sig/Kim Start time Last Medication Dose Route Stop Time Status Admin Acetaminophen 650 MG Q6 PRN 06/30 2200 AC 07/03 PO 0947 Aspirin 81 MG DAILY 07/01 2144 AC 07/05 PO 0902 Atorvastatin Calcium 80 MG 1700 07/01 1700 AC 07/05 PO 1705 Cholecalciferol 1,000 IU DAILY 07/01 1000 AC 07/05 PO 0902 Clindamycin 600 MG Q8H 07/03 1000 AC 07/05 Dextrose/Water 50 ML IV 1705 Cyanocobalamin 1,000 MCG DAILY 07/01 1000 AC 07/05 PO 0902 Enoxaparin Sodium 40 MG DAILY 07/01 1000 AC 07/05 SC 0902 Ferrous Sulfate 325 MG TID 07/01 0030 AC 07/05 PO 1705 Folic Acid 1 MG DAILY 07/01 1000 AC 07/05 PO 0902 Furosemide 20 MG DAILY 07/03 1815 AC PO Gabapentin 600 MG Q6 07/01 1200 AC 07/05 PO 1710 Metoprolol Tartrate 25 MG BID 07/01 1457 AC 07/05 PO 0902 Morphine Sulfate 15 MG Q8 07/01 1400 AC 07/05 PO 1416 Multivitamins 1 TAB DAILY 07/01 1000 AC 07/05 Therapeutic PO 0902 Omeprazole 40 MG DAILY AC 07/01 0700 AC 07/05 PO 0539 Oxycodone HCl 20 MG Q6P PRN 07/04 1745 AC 07/05 PO 1522 Pramoxine HCl See Dose Q5 PRN 07/03 0745 AC Insts (1) EXT Sertraline HCl 100 MG DAILY 07/01 1000 AC 07/05 PO 0902 Zolpidem Tartrate 5 MG AT BEDTIME 07/04 2200 AC 07/04 PO 2125 Zolpidem Tartrate 5 MG AT BEDTIME PRN 07/02 2200 AC PO Dose Instructions: (1)Pramoxine HCl: APPLY A SMALL AMOUNT Results Last 48 Hrs of Labs/Mics: Laboratory Tests 07/05/16 0623: Anion Gap 7, Estimated GFR > 60, BUN/Creatinine Ratio 11.8, CBC w Diff NO MAN DIFF REQ, RBC 3.22 L, MCV 88.8, MCH 27.6, RDW 34.8 H, MPV 9.3, Gran % 64.7, Lymphocytes % 19.4 L, Monocytes % 11.5 H, Eosinophils % 4.2, Basophils % 0.2, Absolute Granulocytes 3.4, Absolute Lymphocytes 1.0 L, Absolute Monocytes 0.6, Absolute Eosinophils 0.2, Absolute Basophils 0, PUBS MCHC 31.1 L Recent Imaging Studies: The patient is not currently on telemetry Assessment/Plan Assessment/Plan 1. Cellulitis 2. Coronary artery disease with prior CABG 3. Anemia 4. History of EtOH abuse 5. History of pulmonary hypertension by echo 6. Mild shortness of breath The patient is currently refusing Lasix. He is laying flat in bed and does not appear to be in decompensated congestive heart failure. While he does have shortness of breath it is currently mild and unchanged. He may need repeat ischemic evaluation at some point. He may also need further investigation of the the pulmonary hypertension. He may benefit from a trial of low-dose Imdur or if blood pressure is an issue possibly a trial of Ranexa in the future. Bg Pepper MD [facility] Continue telemetry? Not applicable
[2016-07-05] MEDS ORDERED: LASIX20 M1 PO (21:09)
[2016-07-05] MEDS ORDERED: CLINDAMYCIN HC300 M1 PO (21:11)
[2016-07-05 22:52] VITALS: BP 108/60
--- NOTE | 2016-07-06 06:46 | PN- Housestaff ---
CATY HANSON,NEIL 07/06/16 0646: Subjective Follow-up For: cellulitis shortness of breath Tele-Events Since Last Visit: off tele monitor Subjective: pt seen his morning, still reports 7-8/10 pain at rest on his right lower extremity, worse with movement. he doesnt feel ready to go home because he is feeling weak. encouraged him to ambulate more. the cellulitis looks improved, less erythematous and edematous compared to admission. he also reports mild improvement in shortness of breat although he continues to refuse po lasix. he spiked to 101.1 this am, given tylenol. Review of Systems Constitutional: Reports: see HPI. Objective Last 24 Hrs of Vital Signs/I&O Vital Signs Date Time Temp Pulse Resp B/P Pulse O2 O2 Flow FiO2 Ox Delivery Rate 07/06 0822 62 07/06 0817 101.1 58 18 110/64 94 Room Air 07/06 0000 97 07/05 2252 99.3 49 18 108/60 94 Room Air 07/05 2121 74 118/70 07/05 1638 98.1 71 18 112/70 95 Room Air 07/05 1200 98.9 61 16 116/60 07/05 0902 54 120/64 Intake & Output 07/06 1600 07/06 0800 07/06 0000 Intake Total 480 584 Output Total Balance 480 584 Intake, IV 64 Intake, Oral 480 520 Physical Exam General Appearance: Alert, Oriented X3, Cooperative, No Acute Distress Neck: Supple Cardiovascular: Regular Rate, Normal S1, Normal S2, No Murmurs, Gallops, Rubs Lungs: Clear to Auscultation, Normal Air Movement Abdomen: Normal Bowel Sounds, Soft, No Tenderness Neurological: Normal Speech Extremities: RLE looks improved, still erythematous, warm, and edematous Current Medications: Current Medications Sig/Kim Start time Last Medication Dose Route Stop Time Status Admin Acetaminophen 650 MG Q6 PRN 06/30 2200 AC 07/03 PO 0947 Aspirin 81 MG DAILY 07/01 2144 AC 07/05 PO 0902 Atorvastatin Calcium 80 MG 1700 07/01 1700 AC 07/05 PO 1705 Cholecalciferol 1,000 IU DAILY 07/01 1000 AC 07/05 PO 0902 Clindamycin 600 MG Q8H 07/03 1000 AC 07/06 Dextrose/Water 50 ML IV 0105 Cyanocobalamin 1,000 MCG DAILY 07/01 1000 AC 07/05 PO 0902 Enoxaparin Sodium 40 MG DAILY 07/01 1000 AC 07/05 SC 0902 Ferrous Sulfate 325 MG TID 07/01 0030 AC 07/05 PO 2121 Folic Acid 1 MG DAILY 07/01 1000 AC 07/05 PO 0902 Furosemide 20 MG DAILY 07/03 1815 AC PO Gabapentin 600 MG Q6 07/01 1200 AC 07/06 PO 0618 Metoprolol Tartrate 25 MG BID 07/01 1457 AC 07/05 PO 2121 Morphine Sulfate 15 MG Q8 07/01 1400 AC 07/06 PO 0619 Multivitamins 1 TAB DAILY 07/01 1000 AC 07/05 Therapeutic PO 0902 Omeprazole 40 MG DAILY AC 07/01 0700 AC 07/06 PO 0618 Oxycodone HCl 20 MG Q6P PRN 07/04 1745 AC 07/06 PO 0630 Pramoxine HCl See Dose Q5 PRN 07/03 0745 AC Insts (1) EXT Sertraline HCl 100 MG DAILY 07/01 1000 AC 07/05 PO 0902 Zolpidem Tartrate 5 MG AT BEDTIME 07/04 2200 AC 07/06 PO 0105 Zolpidem Tartrate 5 MG AT BEDTIME PRN 07/02 2200 AC PO Dose Instructions: (1)Pramoxine HCl: APPLY A SMALL AMOUNT Assessment/Plan Assessment: 70-year-old male with PMH of coronary artery disease status post CABG, hypertension, nephrolithiasis, depression, prostate cancer, rheumatoid arthritis , chronic pain, alcohol dependence, chronic anemia, B12 deficiency, recent hospitalization for symptomatic anemia requiring 3 units of transfusions, presented for worsening shortness of breath with right lower extremity swelling for 3 days prior to admission. He was admitted to telemetry for nonspecific EKG changes with 3X[place] [address],although he does not appear to be in CHF. He did have crackles on admission, which resolved with 1Xlasix, although reports no improvement in shortness of breath. He refused further lasix due to inconvenience of frequent urination and lack of relief of his shortness of breath. His hemoglobin has been low but stable. He was started on unasyn on admission for presumable cellulitis, most likely due to infected open wound due to chronic scratching (5cm linear lesion on the lateral left lower extremity). The right lower extremity was red and edematous from the ankle to just below the knee, nontender. Despite being on unasyn for 2 days, I did not see significant improvement in the way the right lower extremity looks. He had oral temp of 100 at 8am on July 03. He did report chills as well. BCX4 NGTD. Changed abx to clindamycin to cover for possible MRSA on day #3 , and again he spiked to 101.1 on abx day #6, however was 97.6 in 1 hour without any meds. Would recheck his temp in 1 hour, if afebrile, would discharge today. He also came in with swelling of the right knee which was tender, although non- erythematous, and intact passive and active ROM. Knee xray done and showed suprapatellar effusion. The knee swelling resolved after 1 day. He had a small necrotic lesion on the right 3rd toe, without history of DM. Due to concerns of PAD, arterial doppler obtained, and showed no stenosis except for likely dorsalis pedis stenosis in the LEFT foot, which can be followed up as outpatient. Problem list: - Persistent shortness of breath on exertion, most likely secondary to anemia vs CHF - EKG changes with negative troponin - RLE cellulitis on unasyn - Right knee swelling (resolved) - Right 3rd toe necrotic lesion # Shortness of breath, due CHF? [place]? [place] [address], with mild improvement of SOB after 1XIV lasix. Hg stable. - He reports shortness of breath on mild exertion, after walking short distance, he gets winded once he sits down on the bed, trying to get his legs onto the bed. 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 - On first EKG, noted t wave flattening on v3 and v4 and minimal st depression on v3 and v4. On the subsquent 2 EKGs, the t wave flattening persists and I could no longer see ST depressions. - He was previously admitted 1 month ago for shortness of breath, found to have anemia and required 3 units tranfusions. Hg was 8.1 at discharge on jun 09. Denied blood in stool or urine. - He has cough (chronic) without sputum production. reports some wheezing. - CXR: no acute abnormality of the chest - probnp [id number] , but not in obvious CHF - Last echo May 2016: LFEF 60%. Pulmonary artery systolic pressure is moderate to severely elevated to 60mmHg. * Discontinue telemetry monitoring * Transfer to * Serial trops negative * Given 1 X 40 mg IV lasix, improvement in crackles. 20 mg po lasix started on however pt has been refusing. * Continue Metoprolol * Appreciate cardio consult with Dr. Stein * Guaiac all stool * Monitor h/h. hg 10.3 on admission, stable at 8.9 * Continue PPI * Continue Ferrous sulfate 325 mg by mouth 3 times a day * He may benefit from a trial of low-dose Imdur or if blood pressure is an issue possibly a trial of Ranexa in the future. 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 - His right lower extremity was red, swollen, and slightly tender from the ankle to knee, no appreciable difference in temperature between right and left. - His right knee also swollen, non-erythematous, warmer than left, active and passive ROM intact, nontender. Knee xray: Small suprapatellar effusion. Degenerative joint disease of the knee. No focal bone destruction. - He has a scab over the right 3rd toe, looks like necrotic ulcer. Arterial US of both lower extremities show Normal right femoral peripheral arterial testing without evidence of hemodynamically significant stenosis. There are normal inflow and outflow velocities within the left lower extremity. However, there is a likely dorsalis pedis stenosis in the left foot. - Doppler US negative for DVT * Unasyn 3 g IV every 6 given for 2 days with minimal improvement. Changed to clindamycin on day #3. Today is abx day #6 * BC x 2 from 06/30 NGTD. BC X 2 from 07/03 NGTD. * Keep legs elevated * Emolient for dry skin * Pramoxine for pruritus * Would consider ID consult. # History of alcohol dependence with elevated t bili but normal transaminase - Serum alcohol < 10 * Check CIWA * Consider abdominal US * Continue Multivitamin 1 tablet by mouth daily * Continue Folic Acid 1 mg by mouth daily # Chronic pain * Continue MS Contin 15 mg by mouth every 8 hours * INC TO Oxycodone 20 mg by mouth every 6 hours * Continue Gabapentin 600 mg by mouth every 6 hours # History of insomnia * Continue Rozerem as needed * ambien 5 mg at bedtime prn sleep # Hyperlipidemia * Continue atorvastatin 80 mg by mouth daily # B12 deficiency * Continue cyanocobalamin 1000 g by mouth daily # Depression * Continue Zoloft 100 mg by mouth daily Diet-regular diet DVT prophylaxis-Lovenox CODE STATUS-full code Problem List: 1. Shortness of breath 2. Cellulitis of right lower extremity Pain Ratin Pain Location: right lower extremity Pain Goal: Pain 7 or less Pain Plan: roxicodone 20 q 6 ms contin Tomorrow's Labs & Rationales: none DVT/Prophylaxis: mechanical, pharmacological Consulting Request: Consulting Specialty: Cardiology RENÉE CENTENO MD 07/06/16 1224: Attending MD Review Statement Attending Statement Attending MD Statement: examined this patient, discuss w/resident/PA/MASTER WELDER, agreed w/resident/PA/MASTER WELDER, reviewed EMR data (avail) Attending Assessment/Plan: 70M PMH CAD s/p CABG, HTN, chronic anemia with recent admission for symptomatic anemia s/p EGD and colonoscopy with a total of 7 colon polyps removed, admitted for RLE cellulitis and dyspnea on exertion with EKG changes. Patient has chronic pruritis and dry skin with likely eczema, and is scratching his body during the entirety of the interview. His RLE has excoriations and is swollen, erythematous, and tender. There is no purulence. He reports 2 weeks of dyspnea on exertion, denies chest pain or palpitations. He otherwise feels well. EKG shows TWI in anterior leads without ST changes. Troponin is negative. Was initially hypotensive on admission but received appropriate IV fluids and appears euvolemic. Lactate initially elevated now normalized. Leg much improved today. Remains afebrile, Pain improved. Still refusing Lasix. Temperature reading of 101 this morning, however his temperature a few minutes prior was 97.7 and 30 minutes later was 97.7 without receiving any medication. He did not report a fever, did not feel febrile, and had no signs of illness or fever. 1. RLE cellulitis 2. Eczema 3. Dyspnea on exertion 4. Acute EKG changes 5. History of CAD s/p CABG 6. Iron deficiency anemia 7. Lactic acidosis 8. Hypotension Plan - Stable for discharge home - Continue Clindamycin - Continue home pain meds - Leg elevation - Pramoxine cream for pruritis - Leg elevation - Continue home medications - Arterial doppler showed slight narrowing in dorsalis pedis, can follow up as outpatient - Continue Lasix, patient agrees to take it PRN, will not agree to daily
[2016-07-06 08:17] VITALS: BP 110/64
[2016-07-06 09:07] VITALS: BP 116/60
--- NOTE | 2016-07-06 09:43 | NUR ---
REPORT OF TEMP OF 101.1 AT 8AM, TOOK TEMP WITH SINGLE USE 97.7 A[ERGIS IS AWARE. PT DENIES DISCOMFORT
--- NOTE | 2016-07-06 09:49 | Discharge Summary ---
See Addendum Visit Information Visit Dates Admission Date: 06/30/16 Discharge Date: 07/06/16 Hospital Course Course Attending Physician: RENÉE CENTENO MD Primary Care Physician: SHORTY HANSON,NAWAF Benítez Consulting Request: Consulting Specialty: Cardiology Hospital Course: 70-year-old male with PMH of coronary artery disease status post CABG, hypertension, nephrolithiasis, depression, prostate cancer, rheumatoid arthritis , chronic pain, alcohol dependence, chronic anemia, B12 deficiency, recent hospitalization for symptomatic anemia requiring 3 units of transfusions, presented for worsening shortness of breath with right lower extremity swelling for 3 days prior to admission. He was admitted to telemetry for nonspecific EKG changes with 3Xnegative [place] [address],although he does not appear to be in CHF. He did have crackles on admission, which resolved with 1Xlasix, although reports no improvement in shortness of breath. He refused further lasix due to inconvenience of frequent urination and lack of relief of his shortness of breath. His hemoglobin has been low but stable, last checked was 8.9. He did not appear to be in decompensated congestive heart failure, and cardiology recommended repeat ischemic evaluation at some point and he may need further investigation on pulmonary hypertension, and may benefit from trial of low dose imdur or if BP is an issue, possibly trial of ranexa in the future. He was started on aspirin on this admission. Discharged on lasix, however he is unlikely to take it. He was started on unasyn on admission for presumable cellulitis of RLE, most likely due to infected open wound due to chronic scratching (5cm linear lesion on the lateral left lower extremity). Initially, the right lower extremity was red and edematous from the ankle to just below the knee, nontender. Despite being on unasyn for 2 days, I did not see significant improvement in the way the right lower extremity looks. He had oral temp of 100 at 8am on July 03. He did report chills as well. BC x 2 from 06/30 NGTD. BC X 2 from 07/03 NGTD. Changed abx to clindamycin to cover for possible MRSA on day #3, and again he spiked to 101.1 on abx day #6, however was 97.6 in 1 hour without any meds. The spike in temp is most likely due to inaccurate reading from the thermometer. Discharged on clindamycin to finish total abx course of 10 days. He also came in with swelling of the right knee which was tender, although non- erythematous, and intact passive and active ROM. Knee xray done and showed suprapatellar effusion. The knee swelling resolved after 1 day. He had a small necrotic lesion on the right 3rd toe, without history of DM. Due to concerns of PAD, arterial doppler obtained, and showed no stenosis except for likely dorsalis pedis stenosis in the LEFT foot, which can be followed up as outpatient. Allergies: Coded Allergies: No Known Allergies (06/30/16) Significant Procedures: Duplex IMPRESSION: 1. Normal right femoral peripheral arterial testing without evidence of hemodynamically significant stenosis. 2. There are normal inflow and outflow velocities within the left lower extremity. However, there is a likely dorsalis pedis stenosis in the left foot. Knee Xray IMPRESSION: Small suprapatellar effusion. Degenerative joint disease of the knee. No focal bone destruction. Venous doppler IMPRESSION: Normal triplex scan without evidence of deep venous thrombosis involving the right lower extremity. CXR IMPRESSION: No acute abnormality of the chest. Disposition Summary Disposition Principal Diagnosis: RLE cellulitis Additional Diagnosis: Elevated probnp Shortness of breath Chronic anemia Discharge Disposition: home or self care Discharge Instructions General Discharge Information Code Status: Full Code Patient's Diet: Heart healthy Patient's Activity: As tolerated Follow-Up Instructions/Appts: You were seen/treated for: - Right lower extremity swelling - Shortness of breath Special Instructions: Please follow up with PCP and crossing watchman in 1 week. Please follow up with rheumatology, Dr. Mendoza. Medications at Discharge Discharge Medications: Continue taking these medications: Atorvastatin Calcium (Lipitor) 80 MG TABLET 1 Tablet ORAL DAILY Comments: NOT RECEIVE WHILE IN HOSPITAL Oxycodone HCl (Oxycodone HCl) 10 MG TABLET 1 Tablet ORAL 4 TIMES A DAY Comments: Last Taken: 06/09/16 Time: 12:15 PM Gabapentin (Gabapentin) 600 MG TABLET 1 Tablet ORAL 4 TIMES A DAY Comments: Last Taken: 07/06/16 Time: 12:00 PM Morphine Sulfate (Morphine Sulfate ER) 15 MG TABLET.ER 1 Tablet ORAL THREE TIMES DAILY Comments: Last Taken: 06/09/16 Time: 10:00 AM Sertraline HCl (Zoloft) 100 MG TABLET 1 Tablet ORAL DAILY Comments: Last Taken: 07/06/16 Time: 10:00 AM Pantoprazole Sodium (Protonix) 40 MG TABLET. 1 Tablet ORAL DAILY Comments: Last Taken: 07/06/16 Time: 10:00 AM Folic Acid (Folic Acid) 1 MG TABLET 1 Milligram ORAL DAILY Qty = 30 Comments: Last Taken:07/06/16 Time:1000 Multivitamin (One Daily Multivitamin) 1 EACH TABLET 1 Tablet ORAL DAILY Qty = 30 Comments: Last Taken:07/06/16 Time:1000 Ferrous Sulfate (Ferrous Sulfate) 325 MG (65 MG IRON) TABLET. 325 Milligram ORAL THREE TIMES DAILY Qty = 90 Comments: Last Taken: 07/06/16 Time: 10:00 AM Metoprolol Tartrate (Metoprolol Tartrate) 25 MG TABLET 25 Milligram ORAL TWICE DAILY Qty = 60 Comments: Last Taken: 07/06/16 Time: 10:00 AM Cyanocobalamin (Vitamin B-12) (Vitamin B-12) 500 MCG TABLET 1 Tablet ORAL DAILY Comments: Last Taken:07/06/16 Time:1000 Cholecalciferol (Vitamin D3) (Vitamin D) 1,000 UNIT TABLET 1 Tablet ORAL DAILY Comments: Last Taken:07/06/16 Time:1000 Zolpidem Tartrate (Ambien) 5 MG TABLET 1 Tablet ORAL Every night as needed as needed for INSOMNIA Start taking the following new medications: Aspirin (Aspirin*) 81 MG TAB.CHEW 81 Milligram ORAL DAILY Qty = 60 No Refills Furosemide (Lasix) 20 MG TABLET 1 Tablet ORAL DAILY Qty = 30 No Refills Clindamycin HCl (Clindamycin HCl) 300 MG CAPSULE 1 Capsule ORAL TWICE DAILY Qty = 10 No Refills Instructions: Please take until 07/10/16 to complete 10 days of antibiotics Comments: Last Taken:07/06/16 Time:1000 Copies To: AUGUST HANSON,VINOD Shelley; SHORTY HANSON,NAWAF Benítez; EDOUARD HANSON PhD,WILLIE James
== END 2016-07-06 19:45 | DRG 603 ==
LOC: ENRESERVTM → ENRESERVDT → ERH 18:47 → 1NO 21:53 → ERHI 21:53 → 1NO 07-01 15:09
PROVIDERS: Emergency Medicine; Internal Medicine; Radiology Diagnostic Radiology; Student in an Organized Health Care Education/Training Program; ADMIT Student in an Organized Health Care Education/Training Program
DX: L03.115 Cellulitis of right lower limb (principal); E87.2 Acidosis; I95.9 Hypotension, unspecified; I10 Essential (primary) hypertension; F10.20 Alcohol dependence, uncomplicated; D50.9 Iron deficiency anemia, unspecified; L30.9 Dermatitis, unspecified; I25.10 Atherosclerotic heart disease of native coronary artery without angina pectoris; Z95.1 Presence of aortocoronary bypass graft; F32.9 Major depressive disorder, single episode, unspecified; E53.8 Deficiency of other specified B group vitamins; Z85.46 Personal history of malignant neoplasm of prostate; E78.5 Hyperlipidemia, unspecified; K21.9 Gastro-esophageal reflux disease without esophagitis; M06.9 Rheumatoid arthritis, unspecified
CPT/HCPCS: 1NP; ERO; 36415; 73562-RT; 81001; 82436; 87040; 87086; 87804; 87804-59; 93005; 93010; 93925; 96365; 99291; G0480; J1650; J1940; J3490; J7040

== ENCOUNTER 2017-04-27 14:56 | Inpatient (IN) | payer OTHER, MEDICARE ==
[~2017-04-27] VITALS: Ht 172.7 cm; Wt 74.9 kg
[~2017-04-27 14:56] MED LIST changes: +ACETAMINOPHEN325 M2 PO; +AMBIEN5 M1 PO; +ANTIBIOTIC PO; +ASPIRIN81 M4 PO; +BACTRIM DS TAB1 EACH PO; +CLINDAMYCIN HC300 M1 PO; +CYMBALTA30 M1 PO; +FERROUS SULFAT325 M3 PO; +HYDROXYCHLOROQ200 M2 PO; +LASIX20 M1 PO; +LEXAPRO10 M1 PO; +LIDOCAINE1 EACH TOP; +MORPHINE SULFAT15 M4 PO; +OMEPRAZOLE20 M2 PO; +OXYCODONE HCL20 M2 PO; +OXYCODONE HCL5 M1 PO; +PREDNISONE1 MG PO; +PREDNISONE5 M1 PO; +SENNA S TABLET1 EACH PO; +SULFAZINE500 MG PO; +UNASYN 3 GM VIAL3 GM IV; +VITAMIN B-121000 MC3 PO; +VITAMIN B-150 M1 PO; +VITAMIN D1000 UNIT PO; +WELLBUTRIN XL150 M2 PO
[2017-04-27] MEDS ORDERED: METOPROLOL TART25 M1 PO (15:17)
--- NOTE | 2017-04-27 15:19 | ED SYNCOPE COMPLAINT ---
History of Present Illness General Chief Complaint: General Adult Stated Complaint: BIBA "UNRESPONSIVE" AT [facility] Source: patient, old records Exam Limitations: no limitations Vital Signs & Intake/Output Vital Signs & Intake/Output Vital Signs Date Time Temp Pulse Resp B/P B/P Pulse O2 O2 Flow FiO2 Mean Ox Delivery Rate 04/29 0850 76 122/64 04/29 0800 Nasal 2.0L Cannula 04/29 0657 98.2 76 18 122/64 94 Nasal Cannula 04/29 0000 Nasal 2.0L Cannula 04/28 2156 74 112/64 04/28 2100 98.2 75 16 112/64 95 Nasal 2.0L Cannula 04/28 1603 Nasal 2.0L Cannula 04/28 1600 94 Nasal 2.0L Cannula 04/28 1600 98.2 84 20 110/70 94 Nasal 2.0L Cannula 04/28 1200 96 Nasal 2.0L Cannula ED Intake and Output 04/29 0000 04/28 1200 Intake Total 720 110 Output Total 200 750 Balance 520 -640 Intake, IV 120 110 Intake, Oral 600 Number 0 Bowel Movements Output, Urine 200 750 Patient 165 lb Weight Weight Bed scale Measurement Method Allergies Coded Allergies: No Known Allergies (03/05/17) Reconcile Medications Ampicillin Sodium/Sulbactam Na (Unasyn 3 Gm Vial) 3 GRAM VIAL 3 GM IV Q6 ANTIBIOTIC, INFECTION Atorvastatin Calcium (Lipitor) 80 MG TABLET 1 TAB PO DAILY hld (Reported) Bupropion HCl (Wellbutrin XL) 150 MG TAB.ER.24H 1 TAB PO DAILY DEPRESSION ( Reported) Cyanocobalamin (Vitamin B-12) 1,000 MCG TABLET 1 TAB PO DAILY VITAMIN SUPPORT (Reported) Duloxetine Hydrochloride (Cymbalta) 30 MG CAPSULE.DR 1 CAP PO DAILY nerve pain (Reported) Ferrous Sulfate 325 MG (65 MG IRON) TABLET 1 TAB PO DAILY SUPPLEMENT ( Reported) Folic Acid 1 MG TABLET 1 MG PO DAILY Vitamin Gabapentin 600 MG TABLET 1 TAB PO TID nerve pain (Reported) Hydroxychloroquine Sulfate 200 MG TABLET 1 TAB PO BID Rheumatoid Arthritis ( Reported) Metoprolol Tartrate 25 MG TABLET 0.5 TAB PO BID HEART (Reported) Morphine Sulfate 15 MG TABLET 1 TAB PO Q8P PRN PAIN SCALE 7-10 (SEVERE) ( Reported) Multivitamin (One Daily Multivitamin) 1 EACH TABLET 1 TAB PO DAILY MULTIVITAMIN Oxycodone HCl 5 MG TABLET 5 MG PO Q4 HRS NEEDED PRN breakthrough (Reported ) Oxycodone HCl 10 MG TABLET 1 TAB PO Q4 HRS NEEDED PRN PAIN (Reported) Pantoprazole Sodium (Protonix) 40 MG TABLET.DR 1 TAB PO DAILY GI (Reported) Prednisone 5 MG TABLET 1 TAB PO DAILY STEROID (Reported) Sertraline HCl (Zoloft) 100 MG TABLET 1 TAB PO DAILY MENTAL HEALTH (Reported) Thiamine HCl (Vitamin B-1) 50 MG TABLET 50 MG PO DAILY MULTIVITAMIN Zolpidem Tartrate (Ambien) 5 MG TABLET 1 TAB PO QPMP PRN INSOMNIA (Reported) Triage Note: PT TO [facility]IB[facility] FROM [facility] S/P WITNESSED UNRESPONSIVE EPISODE LASTING APPROX 30 SECONDS PER DAUGHTER. DAUGHTER STATES PATIENT WAS DRINKING GINGERALE WHEN HE SUDDENLY LOST CONSCIOUSNESS AND STARTING "SHAKING A LITTLE" AND BECAME FLUSHED. EMS STATES ECF STAFF INITIATED CPR, PATIENT AWOKE STATING "STOP PRESSING ON MY CHEST YOU'RE HURTING ME". ECF STAFF ADMINISTERED 1 NITRO AND A BREATHING TX DUE TO CHEST PAIN AND SOB AFTER EPISODE. PATIENT ARRIVES TO ED AOX3, DENIES COMPLAINTS ASIDE FROM MILD CHEST DISCOMFORT AT SITE OF COMPRESSIONS, HX OF FRACTURED RIBS S/P FALL ABOUT 5-6 WEEKS AGO. Triage Nurses Notes Reviewed? yes Timing: single episode today Precipitating Factors: none Loss of Consciousness: no loss of consciousness HPI: 71-year-old male comes into the emergency room for further evaluation of a unresponsive episode that occurred at [facility]. 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 He was drinking valentin елена when the daughter reports that suddenly he became unresponsive. His eyes were open but he was not conscious are aware of what was going on. She reports that the nurses started to do some chest compressions on him. She is unsure whether or not they took his blood pressure pulse. Patient reportedly woke up and said stop pushing on my chest because it hurts. (Italo Davies) Past History Travel History Traveled to [place] past 21 day No Medical History Any Pertinent Medical History? 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 FH: prostate cancer MOTHER (smoker). , Age 77; Cause: COPD (chronic obstructive pulmonary disease). Hx Contributory? No (Italo Davies) Review of Systems Review of Systems Constitutional: Reports: no symptoms. EENTM: Reports: no symptoms. Respiratory: Reports: no symptoms. Cardiovascular: Reports: see HPI. GI: Reports: no symptoms. Genitourinary: Reports: no symptoms. Musculoskeletal: Reports: no symptoms. Skin: Reports: no symptoms. Neurological/Psychological: Reports: see HPI. All Other Systems: Reviewed and Negative (Italo Davies) Physical Exam Physical Exam General Appearance: no apparent distress, alert, awake Head: atraumatic Eyes: Bilateral: normal appearance, EOMI. Ears, Nose, Throat: normal ENT inspection, hearing grossly normal Neck: normal inspection Respiratory: no respiratory distress Cardiovascular: regular rate/rhythm Extremities: no edema Psychiatric: awake, alert, oriented x 3 Cranial Nerves: normal hearing, normal speech, PERRL Coordination/Gait: normal finger to nose, normal gait Motor/Sensory: no motor/sensory deficits Skin: intact, normal color Core Measures ACS in differential dx? No CVA/TIA Diagnosis: No Sepsis Present: No Sepsis Focused Exam Completed? No (Italo Davies) Progress Differential Diagnosis: AMI, aortic dissection, drug induced syncope, orthostatic syncope, other valvular disease, pacemaker malfunction, pericardial tamponade, pulmonary embolus, sick sinus syndrome, subarachnoid hem., TIA/CVA Plan of Care: Orders Procedure Date/time Status Heart Healthy Diet 04/29 L Active Change service to 04/29 08 Active Change service to 04/29 0803 Active ICU LAB BUNDLE 04/29 0500 Complete WESTERGREN SED RATE 04/29 0500 Complete CBC WITHOUT DIFFERENTIAL 04/29 0500 Complete PT Evaluate & Treat 04/29 UNK Active MISTAKE 04/29 UNK Active Regular Diet 04/28 L Complete Transfer Disposition 04/28 2011 Active CULTURE,STOOL 04/28 1455 Active C.DIFFICILE 04/28 1455 Active Transfer patient to 04/28 1442 Active THYROID STIMULATING HORMONE 04/28 1210 Complete LIPID PANEL 04/28 1210 Complete FREE T4 04/28 1210 Complete GLYCOSYLATED HGB 04/28 0520 Complete Lab Add-on Test 04/28 UNK Active MISTAKE 04/28 UNK Active ELECTROENCEPHALOGRAM 04/28 UNK Active Current Medications Sig/Kim Start time Last Medication Dose Stop Time Status Admin Gabapentin 300 MG Q8 04/29 1400 AC (Neurontin) Patient Medication 1 ED ONE ONE 04/29 1130 AC Teaching 04/29 1131 (Medication Education ONE) Furosemide 20 MG DAILY 04/29 1000 AC 04/29 (Lasix) 0851 Enoxaparin Sodium 40 MG DAILY@2200 04/28 2200 AC 04/28 (Lovenox) 2157 Lactobacillus 1 CAP DAILY 04/28 1500 AC 04/29 Acidophilus 0851 (Probiotic) Diclofenac Sodium 1 MAIKEL 4 TIMES/DAY 04/28 1444 AC (Voltaren 1% Gel) Ampicillin Sodium/ 3,000 MG Q6 04/28 1200 AC 04/29 Sulbactam Sodium 0540 (Unasyn) Sodium Chloride 100 ML (Normal Saline 0.9%) Aspirin 81 MG DAILY 04/28 1000 AC 04/29 (Aspirin) 0850 Prednisone 5 MG DAILY 04/28 1000 AC 04/29 0850 Sertraline HCl 100 MG DAILY 04/28 1000 AC 04/29 (Zoloft) 0851 Metoprolol Tartrate 12.5 MG BID 04/27 2200 AC 04/29 (Lopressor) 0850 Zolpidem Tartrate 5 MG AT BEDTIME NEED.. 04/27 2030 AC 04/28 (Ambien) 2201 Pantoprazole Sodium 40 MG DAILY 04/27 2018 AC 04/29 (Protonix) 0851 Duloxetine HCl 30 MG DAILY 04/27 2016 AC 04/29 (Cymbalta) 0850 Morphine Sulfate 15 MG Q8P PRN 04/27 1900 AC 04/28 (MSIR) 1451 Oxycodone HCl 5 MG Q4 HRS NEEDED PRN 04/27 1900 AC 04/29 (Roxicodone) 1004 Atorvastatin Calcium 80 MG 1700 04/27 1851 AC 04/28 (Lipitor) 1749 Laboratory Tests 04/29/17 0545: Anion Gap 9, Estimated GFR > 60, Glucose 88, Calcium 8.5, Phosphorus 3.8, Magnesium 1.7, Total Bilirubin 0.4, AST 23, ALT 36, Albumin 3.0 L, CBC w Diff NO MAN DIFF REQ, RBC 3.06 L, MCV 99.8 H, MCH 32.0 H, RDW 17.8 H, MPV 8.6, Gran % 57.6, Lymphocytes % 26.3, Monocytes % 12.8 H, Eosinophils % 2.5, Basophils % 0.8, Absolute Granulocytes 4.0, Absolute Lymphocytes 1.8, Absolute Monocytes 0.9 H, Absolute Eosinophils 0.2, Absolute Basophils 0.1, PUBS MCHC 32.1 L, ESR Westergren 34 H 04/28/17 1210: Anion Gap 8, Estimated GFR > 60, Glucose 84, Calcium 8.6, Phosphorus 3.6, Magnesium 1.8, Total Bilirubin 0.5, AST 27, ALT 37, Troponin I 0.07, Albumin 3.1 L, Triglycerides 68, Cholesterol 130, LDL Cholesterol, Calc 53 L, HDL Cholesterol 64 H, Cholesterol/HDL Ratio 2, TSH 4.040, Free T4 1.22 Microbiology 04/28 1455 STOOL: Clostridium difficile Toxin A & B - COLB 04/28 1455 STOOL: Stool Culture - COLB Diagnostic Imaging: Viewed by Me: Radiology Read, CT Scan. Discussed w/RAD: Radiology Read, CT Scan. Radiology Impression: PATIENT: LENNOX MCINTOSH PRESENT AGE: 71 PATIENT ACCOUNT NO: [id number] : 46 LOCATION: [facility] ORDERING PHYSICIAN: Italo MARIN SERVICE DATE: 04/27/17 EXAM TYPE : CAT - CT HEAD WO IV CONTRAST EXAMINATION: CT HEAD WITHOUT CONTRAST CLINICAL INFORMATION: Altered mental status. Unresponsive. COMPARISON: 03/06/2017 TECHNIQUE: Contiguous axial imaging was performed from the skull base to vertex without intravenous contrast. DLP: 632 mGy-cm. FINDINGS: There is no evidence of acute intracranial hemorrhage or territorial infarction. No abnormal mass effect or midline shift is seen. Fung to white matter differentiation is well preserved. No extra-axial fluid collections are identified. No hydrocephalus. Proportional prominence of the ventricles and sulcal spaces is consistent with mild volume loss. Patchy periventricular and deep white matter hypoattenuation is consistent with mild small vessel ischemic changes. The osseous structures and soft tissues are normal. Partially visualized left maxillary sinus mucous retention cyst. The mastoid air cells and visualized portions of the paranasal sinuses are otherwise well aerated. IMPRESSION: No acute intracranial pathology. DICTATED BY: Aleks Zepeda MD DATE/TIME DICTATED:04/27/171609 VOLLEYBALL COMMENTATOR:MILENA DATE/TIME TRANSCRIBED:04/27/171609 CONFIDENTIAL, DO NOT COPY WITHOUT APPROPRIATE AUTHORIZATION. <Electronically signed in Other Vendor System> SIGNED BY: Aleks Zepeda MD 04/27/171613, PATIENT: LENNOX MCINTOSH PRESENT AGE: 71 PATIENT ACCOUNT NO : [id number] : 46 LOCATION: [facility] ORDERING PHYSICIAN: Italo MARIN SERVICE DATE: 04/27/17 EXAM TYPE: RAD - XRY-PORTABLE CHEST XRAY EXAMINATION: XR PORTABLE CHEST CLINICAL INFORMATION: Chest pain COMPARISON: Chest x-ray 04/16/[address] chest 03/06/2017 TECHNIQUE: Portable frontal view of the chest was obtained. 3:21 PM FINDINGS: Status post median sternotomy. The cardiac and mediastinal contours are unchanged. There is mild central pulmonary vascular congestion new since prior study. No focal consolidation. No pleural effusion. IMPRESSION: Mild central pulmonary vascular congestion new since the exam of 04/16/2017. DICTATED BY: Zackary Wilkinson MD DATE/TIME DICTATED:04/27/171539 VOLLEYBALL COMMENTATOR:MILENA DATE/TIME TRANSCRIBED:04/27/171539 CONFIDENTIAL, DO NOT COPY WITHOUT APPROPRIATE AUTHORIZATION. <Electronically signed in Other Vendor System> SIGNED BY: Zackary Wilkinson MD 04/27/171545 Initial ED EKG: normal sinus rhythm, rate (67), nonspecific ST T wave chg (Italo Davies) Departure Departure Disposition: STILL A PATIENT Condition: Stable Clinical Impression Primary Impression: Syncope Secondary Impressions: Hypokalemia Referrals: Shania HANSON,Yasmin Benítez (PCP/Family) Departure Forms: Customer Survey General Discharge Information Observation Note Spoke With: Skip HANSON,Cinthya Physician Advisor Notified: DAVID SIMMONS DO Place Patient In: Non-ED OBS Care Area Rationale for Observation: My rational for observation is as follows . Patient will require cardiac telemetry. Echocardiogram. Repeat labs. Potassium repletion. Cardiac consultation. Repeat neurological checks. Not safe for discharge at this time. Likely had a syncopal episode but unclear. (Italo Davies) PA/PHONOGRAPH NEEDLE TIP MAKER Co-Sign Statement Statement: ED Attending supervision documentation- [X] I saw and evaluated the patient. I have also reviewed all the pertinent lab results and diagnostic results. I agree with the findings and the plan of care as documented in the PA's/PHONOGRAPH NEEDLE TIP MAKER's documentation. [X] I have reviewed the ED Record and agree with the PA's/PHONOGRAPH NEEDLE TIP MAKER's documentation. [] Additions or exceptions (if any) to the PAs/PHONOGRAPH NEEDLE TIP MAKER's note and plan are summarized below: [] (Trish HANSON,Geetha)
[2017-04-27 15:37] LABS: ABSOLUTE BASOPHIL COUNT 0 /CUMM (0.0-0.2); ABSOLUTE EOSINOPHIL COUNT 0 /CUMM (0.0-0.7); ABSOLUTE LYMPH COUNT 0.7 /CUMM (1.2-3.4)
[2017-04-27 15:42] LABS: ABSOLUTE GRANULOCYTE CT 7.3 /CUMM (1.4-6.5); ABSOLUTE MONOCYTE COUNT 0.8 /CUMM (0.10-0.60); BASOPHIL % 0.3 % (0.0-2.0); EOSINOPHIL % 0.2 % (0-5); MEAN CORPUSCULAR HGB 32.3 PG (27.0-31.0); MEAN CORPUSCULAR HGB CONC 32.5 G/DL (33.0-37.0); MEAN CORPUSCULAR VOLUME 99.5 FL (80.0-94.0); MEAN PLATELET VOLUME 8.6 FL (7.4-10.4); PLATELET COUNT 293 /CUMM (130-400); RBC DISTRIBUTION WIDTH 18.2 % (11.5-14.5); RED BLOOD CELL CT 3.22 /CUMM (4.70-6.10)
[2017-04-27 15:43] LABS: GRANULOCYTE % 82.2 % (42.2-75.2); HEMATOCRIT 32.1 % (42-52); WHITE BLOOD CELL COUNT 8.9 /CUMM (4.8-10.8)
--- NOTE | 2017-04-27 15:46 | RADIOLOGY REPORT ---
EXAMINATION: XR PORTABLE CHEST CLINICAL INFORMATION: Chest pain COMPARISON: Chest x-ray 04/16/[address] chest 03/06/2017 TECHNIQUE: Portable frontal view of the chest was obtained. 3:21 PM FINDINGS: Status post median sternotomy. The cardiac and mediastinal contours are unchanged. There is mild central pulmonary vascular congestion new since prior study. No focal consolidation. No pleural effusion. IMPRESSION: Mild central pulmonary vascular congestion new since the exam of 04/16/2017.
--- NOTE | 2017-04-27 16:14 | CT SCAN REPORT ---
EXAMINATION: CT HEAD WITHOUT CONTRAST CLINICAL INFORMATION: Altered mental status. Unresponsive. COMPARISON: 03/06/2017 TECHNIQUE: Contiguous axial imaging was performed from the skull base to vertex without intravenous contrast. DLP: 632 mGy-cm. FINDINGS: There is no evidence of acute intracranial hemorrhage or territorial infarction. No abnormal mass effect or midline shift is seen. Fung to white matter differentiation is well preserved. No extra-axial fluid collections are identified. No hydrocephalus. Proportional prominence of the ventricles and sulcal spaces is consistent with mild volume loss. Patchy periventricular and deep white matter hypoattenuation is consistent with mild small vessel ischemic changes. The osseous structures and soft tissues are normal. Partially visualized left maxillary sinus mucous retention cyst. The mastoid air cells and visualized portions of the paranasal sinuses are otherwise well aerated. IMPRESSION: No acute intracranial pathology.
[2017-04-27 16:43] LABS: PT 12.8 SEC (9.4-12.5); PTT 34 SEC (25-37)
--- NOTE | 2017-04-27 18:04 | History & Physical ---
Enio HANSON,Bennett 04/27/17 1804: General Information and HPI History of Present Illness: Mr. Vyas is a 71yo M with PMH of CAD, HTN, HLD, MR, GERD, diverticulosis, nephrolithiasis, EtOH, depression, thyroid cancer, prostate cancer, and anemia who was BIBA from [facility] after a witnessed episode of caridac arrest. He was feeling short of breath earier today and received a neb treatment with good effect. He also had some lightheadedness, dizziness, chills, night sweats, and nausea. He was with his daughter when he suddenly dropped his glass and bercame unresponsive. Hehas no pulse and was not breathing. He receive 4 rounds of CPR and was bagged. He then suddenly woke up and was brought to the ER for further eval. He has been taking amp/sulbactam for osteomyelitis, due to stop on 05/14/2017. He currently complains of rib pain and left arm pain at the IV site. No incontinence, chest pain, shortness breath, weakness, fevers, palpitations, headache, dysarthria, or cough. He is a former smoker and continues to drink alcohol regularly. He refused to answer questions relating to his recreational drug use. Allergies/Medications Allergies: Coded Allergies: No Known Allergies (03/05/17) Home Med list Ampicillin Sodium/Sulbactam Na (Unasyn 3 Gm Vial) 3 GRAM VIAL 3 GM IV Q6 ANTIBIOTIC, INFECTION Atorvastatin Calcium (Lipitor) 80 MG TABLET 1 TAB PO DAILY hld (Reported) Bupropion HCl (Wellbutrin XL) 150 MG TAB.ER.24H 1 TAB PO DAILY DEPRESSION ( Reported) Cyanocobalamin (Vitamin B-12) 1,000 MCG TABLET 1 TAB PO DAILY VITAMIN SUPPORT (Reported) Duloxetine Hydrochloride (Cymbalta) 30 MG CAPSULE.DR 1 CAP PO DAILY nerve pain (Reported) Ferrous Sulfate 325 MG (65 MG IRON) TABLET 1 TAB PO DAILY SUPPLEMENT ( Reported) Folic Acid 1 MG TABLET 1 MG PO DAILY Vitamin Gabapentin 600 MG TABLET 1 TAB PO TID nerve pain (Reported) Hydroxychloroquine Sulfate 200 MG TABLET 1 TAB PO BID Rheumatoid Arthritis ( Reported) Metoprolol Tartrate 25 MG TABLET 0.5 TAB PO BID HEART (Reported) Morphine Sulfate 15 MG TABLET 1 TAB PO Q8P PRN PAIN SCALE 7-10 (SEVERE) ( Reported) Multivitamin (One Daily Multivitamin) 1 EACH TABLET 1 TAB PO DAILY MULTIVITAMIN Oxycodone HCl 5 MG TABLET 5 MG PO Q4 HRS NEEDED PRN breakthrough (Reported ) Oxycodone HCl 10 MG TABLET 1 TAB PO Q4 HRS NEEDED PRN PAIN (Reported) Pantoprazole Sodium (Protonix) 40 MG TABLET.DR 1 TAB PO DAILY GI (Reported) Prednisone 5 MG TABLET 1 TAB PO DAILY STEROID (Reported) Sertraline HCl (Zoloft) 100 MG TABLET 1 TAB PO DAILY MENTAL HEALTH (Reported) Thiamine HCl (Vitamin B-1) 50 MG TABLET 50 MG PO DAILY MULTIVITAMIN Zolpidem Tartrate (Ambien) 5 MG TABLET 1 TAB PO QPMP PRN INSOMNIA (Reported) Past History Travel History Traveled to [place] past 21 day No Medical History Neurological: NONE EENT: NONE Cardiovascular: CAD, hypertension, hyperlipidemia, mitral regurgitation Respiratory: NONE Gastrointestinal: GERD, hiatal hernia, umbilical hernia, diverticulosis coli hx colon TA/TVA Hepatic: NONE Renal: nephrolithiasis Musculoskeletal: chronic back pain, degen joint disease, falls, osteoarthritis, rheumatoid arthritis, hx osteo R foot Psychiatric: alcohol dependence (prev EtOH abuse), depression Endocrine: thyroid Ca Blood Disorders: anemia, B12 deficiency hx Fe def Cancer(s): prostate cancer, thyroid cancer FIBERGLASS GRINDER/Reproductive: NONE History of MRSA: No History of VRE: No History of CDIFF: No Influenza Vaccine: 01/24/17 Surgical History Surgical History: appendectomy, CABG (x3), cataract removal, hip replacement ( bilateral), prostatectomy Past Family/Social History Family History Relations & Conditions if any FATHER, , Age 81. FH: prostate cancer MOTHER (smoker). , Age 77; Cause: COPD (chronic obstructive pulmonary disease). Psychosocial History Who Do You Live With? spouse, child Services at Home: None Primary Language: Hebrew Living Will? no Power of Publishing Systems Analyst/HCP? no Functional Ability ADLs Independent: dressing, eating, toileting, bathing. Ambulation: independent, cane IADLs Independent: shopping, housework, finances, food prep, telephone, transportation , medication admin. Review of Systems Review of Systems Constitutional: Reports: see HPI. EENTM: Reports: no symptoms. Cardiovascular: Reports: no symptoms. Respiratory: Reports: no symptoms. GI: Reports: no symptoms. Genitourinary: Reports: no symptoms. Musculoskeletal: Reports: see HPI. Skin: Reports: no symptoms. Neurological/Psychological: Reports: see HPI. Hematologic/Endocrine: Reports: no symptoms. Immunologic/Allergic: Reports: no symptoms. All Other Systems: Reviewed and Negative Exam & Diagnostic Data Last 24 Hrs of Vital Signs/I&O Vital Signs Date Time Temp Pulse Resp B/P B/P Pulse O2 O2 Flow FiO2 Mean Ox Delivery Rate 04/27 1723 97.7 65 18 135/77 97 Nasal 2.0L Cannula 04/27 1512 96.1 71 16 137/87 93 Room Air Intake & Output 04/27 1600 04/27 0800 04/27 0000 Intake Total Output Total Balance Patient 164 lb Weight Weight Estimated Measurement Method Physical Exam General Appearance Alert, Oriented X3, Cooperative, No Acute Distress Sepsis Skin Exam (color): Normal for Ethnicity HEENT Atraumatic, PERRLA, EOMI Neck Supple, No JVD Cardiovascular Regular Rate, Normal S1, Normal S2 Lungs Clear to Auscultation, Normal Air Movement Abdomen umbilical hernia, tender to palpation diffusely Neurological Normal Speech Extremities No Edema, Normal Pulses, No Tenderness/Swelling Last 24 Hrs of Labs/Antwan: Laboratory Tests 04/27/17 1525: Anion Gap 11, Estimated GFR > 60, BUN/Creatinine Ratio 6.7 L, Glucose 111 H, Calcium 8.3 L, Total Bilirubin 0.5, AST 38, ALT 36, Alkaline Phosphatase 134 H , Troponin I 0.02, Total Protein 5.7 L, Albumin 2.9 L, Globulin 2.8, Albumin/ Globulin Ratio 1.0 L, PT 12.8 H, INR 1.22 H, APTT 34, CBC w Diff NO MAN DIFF REQ, RBC 3.22 L, MCV 99.5 H, MCH 32.3 H, RDW 18.2 H, MPV 8.6, Gran % 82.2 H , Lymphocytes % 8.3 L, Monocytes % 9.0, Eosinophils % 0.2, Basophils % 0.3, Absolute Granulocytes 7.3 H, Absolute Lymphocytes 0.7 L, Absolute Monocytes 0.8 H, Absolute Eosinophils 0, Absolute Basophils 0, PUBS MCHC 32.5 L Assessment/Plan Assessment: Mr. Vyas is a 71yo M with PMH of CAD, HTN, HLD, MR, GERD, diverticulosis, nephrolithiasis, EtOH, depression, thyroid cancer, prostate cancer, and anemia who was BIBA from [facility] after a witnessed episode of caridac arrest. On presentation, vital signs were T 96.1, HR 71, RR 16, BP 137/87, saturating 93 % on room air. After significant for globin 10.4, MCV 99.5, pulse okay 0.9, granulocytes 82.2%, potassium 2.6, BUN 9, creatinine 0.6, glucose 111, calcium 8.3, albumin 2.9, alkaline phosphatase 134, troponin 0.02, INR 1.22. Chest x-ray showed mild central pulmonary vascular congestion. History with morphine and potassium in the emergency room. He'll be admitted to ICU and treated for following problems: 1. Cardiac arrest 2. Severe hypokalemia 3. Macrocytic anemia 4. Acute decompensated heart failure 5. Diarrhea #Cardiac arrest: The patient was pulseless in the field and received 4 rounds of chest compression with spontaneous return of circulation. He is found to be severely hypokalemic to 2.6 on arrival. Possibly had arrhythemia leading to cardiac arrest. Patient also refuses to answer questions related to recent drug use that may have contributed. He has has signs of heart failure on CXR. -Urine toxicology -Potassium replenishment - goal>4 -Cardiology consult -EKG and troponins 3 -Repeat BEP at 2000 -Mg replenishment - goal>2 -TTE -ASA -furosemide x1 -TSH, free T4 -HbA1c -Lipid panel #Diarrhea: Has had recent antibiotic use. -C diff -Stool culture #Macrocytic anemia: Chronic, patient is on vitamin supplementation. -CTM #Chronic medical problems: -Continue amp/sulbactam until 05/14/17 for osteo. Consider podiatry consult. -continue home meds DVT prophylaxis with enoxaparin Heart healthy diet FC As Ranked By This Provider Problem List: 1. Hypokalemia Core Measures/Misc (01/10) Acute Coronary Syndrome ACS Diagnosis: No Congestive Heart Failure Congestive Heart Failure Diagnosis No Cerebrovascular Accident CVA/TIA Diagnosis: No VTE (View Protocol) VTE Risk Factors Age>40 No Mechanical VTE Prophylaxis d/t N/A MechProphylax Ordered No VTE Pharm Prophylaxis d/t NA PharmProphylax ordered Sepsis (View protocol) Sepsis Present: No Jacques HANSON, [facility] 04/27/17 2224: Attending MD Review Statement Attending Statement Attending MD Statement: examined this patient, discuss w/resident/PA/DECKHAND CRAB BOAT, agreed w/resident/PA/DECKHAND CRAB BOAT, discussed with family, discussed with nursing, discussed with case mgmt, reviewed images, amended to note Attending Assessment/Plan: 71 yo M with h/o CAD s/p CABG, HTN, rheumatoid arthritis on prednisone and plaquenil, avascular necrosis s/p bilateral hip replacements, prostate and thyroid cancer, chronic nonhealing ulcer of right foot s/p partial third toe amputation, most recently (Apr 13) s/p second toe amputation of right foot for osteomyelitis (OR cultures growing MSSA) now with a PICC line on IV Unasyn until May 14, is brought in from [facility] after an unresponsive episode which is being reported as a witnessed cardiac arrest. History obtained from the F - please refer to above. History obtained from patient's daughter at bedside patient has had nonbloody diarrhea (4-5 episodes/ day) for past 5 days associated with nausea and poor PO intake. He has had exertional dyspnea for past 2 days. Today he was nauseous, short of breath and dizzy, nebs and O2 supplementation given. While he was resting drinking gingerale, daughter noticed he became unresponsive, she herself immediately started CPR, RN called others for help, CPR was continued and patient was bagged as well for about 4-5 minutes before patient woke up. He was placed on NRB 93% sats. Patient currently c/o mild bilateral chest discomfort which he relates to his rib fractures and the CPR done today. He is very anxious and is requesting medications. Vitals are stable, except for O2 sats 92% RA --> 95% on 2L. Exam: AAO, elderly male in distress due to anxiety, MMM, neck mild JVD +, diffuse skin changes due to rheumatoid, Chest bibasilar crackles, Heart S1S2 regular, systolic murmur+, LE: no edema, Right foot surgical site CDI dressing done. Right PICC line+ Labs: no leukocytosis, H/H 10.4/32.1, macrocytic anemia, INR 1.22, K 2.6, BUN 4, creat 0.6, Mag 1.3, alk phos 134, trop 0.02, proBNP 77702, UA clear, Utox neg. CXR: mild central pulmonary vascular congestion. Head CT neg. EKG: SR with TWI and ?U-waves in V1-3 (new), Qtc 499. Echo (2016): EF 60%, mild LVH, moderate to severe pulmonary hypertension, enlarged left atrium, mild to moderate MR. Assessment and plan: 1. Unresponsive episode, status post presumed cardiac arrest requiring CPR and ventilation of note, patient's initial troponin was 0.02 --> increased to 0.08. It is possible that patient may have had an underlying arrhythmia in the setting of severe electrolytes abnormalities causing this episode. 2. Acute on chronic diastolic heart failure with pulmonary hypertension exertional dyspnea, JVD, bibasilar crackles and elevated proBNP. 3. History of CAD s/p CABG 4. Severe hypokalemia with EKG changes 5. Hypomagnesemia 6. Nausea and diarrhea in the setting of antibiotic use 7. Right foot osteomyelitis s/p 2nd toe amputation - Admit to ICU - Vitals Q1 hour - Serial EKG and troponin - Obtain echo - IV lasix 20 mg x1 reassess need for further diuresis in AM - Cardio consult (Dr. Stein) informed overnight - Replete electrolytes to keep K > 4.0 and Mag > 2.0 - Continue aspirin, metoprolol 9with holding parameters), statin. - Check TSH, free T4, HbA1c and lipid panel - Continue IV Unasyn after confirming PICC line placement (per hospital policy) with CXR - Podiatry consult to assess right foot - Continue daily dry dressing - Pain management continue opiates as per CMR - Continue zoloft, gabapentin, wellbutrin, prednisone and plaquenil. - Work up diarrhea with Cdiff, stool cultures. Add probiotic. DVT ppx lovenox Full code. TTS> 55 mins Austin Greer MD 04/27/177: Resident Review Statement Resident Statement: examined this patient, discussed with international marketing specialist, agreed with international marketing specialist, discussed with family, reviewed EMR data (avail) Other Findings: Patient is a 71 -year-old male with significant past medical history of CAD s/p CABG, HTN, osteoarthritis, chronic pain, alcohol dependence, nephrolithiasis, rheumatoid arthritis, depression, history of prostate cancer, chronic anemia, chronic osteomyelitis on IV antibiotic, history of fall w rib fractures/ vertebral spinous process followed by rehabilitation to [facility]. Patient [facility] from [facility], after an episode of sudden unconsciousness followed by 5 minutes of CPR. According to the patient he was relatively alright in the morning. He was having shortness of breath while walking and on exertion, was having little bit of relief after nebulization. During the daytime when he was talking to his daughter, and was drinking gingerale, he suddenly had an episode of unconsciousness. He denies any headache, dizziness, palpitation, chest pain, shortness of breath, nausea, vomiting, fever, during that time. Rest of the history taken from the daughter and snf nurse, they told that patient was pulseless and was had 4 cycles of CPR for about 5 minutes. EMS was called and as they started CPR patient suddenly woke up. Afterwards patient was given sublingual nitroglycerin in for chest pain and sent to the [facility]. ED course -temperature 96.1, pulse 71, respiratory rate 16, blood pressure 137/ 87, SPO2 93% on room air. On examination , patient was conscious and cooperative , heart S1, S2 normal, chest is right-sided basilar crackles, abdomen soft, bowel sounds positive, right lower leg osteomyelitis, wound is covered with dressing. EKG showed normal sinus rhythm, ST depression and T-wave inversion in V1 to V2 and V3. Chest x-ray did show evidence of pulmonary venous congestion. Blood workup showed hemoglobin 10.4, hematocrit 32.1, platelet count 293, granulocyte 82.2, serum sodium 138, potassium 2.6, BUN 4, creatinine 0.6, calcium 8.3, magnesium 1.3, alkaline phosphatase 134, proBNP 50388, albumin 2.9, PT/INR 12.8/1.22. It was decided to admit the patient to ICU to monitor for arrhythmia. Assessment and plan - Patient is a 71-year-old male with multiple coronary artery risk factors, MARAH from snf, after an episode of unconsciousness followed by pulselessness leading to 5 minutes of CPR and complete recovery. He was having shortness of breath since morning,EKG shows depression in V1, V2 and V3 along with T-wave inversion. Chest x-ray showed evidence of pulmonary congestion. CT scan of the head did not show any evidence of acute intracranial abnormality. On examination , there was basal cackles on the right side of lung, proBNP was 69160, his alkaline phosphatase is 134, and albumin is 2.He was also having low potassium and magnesium, probably that precipitated arrhythmia leading to CHF and pulmonary edema. Discussed with the crop duster helper, Dr. Stein over the phone and updated the situation. It was decided to repeat potassium/magnesium, do serial troponins and EKG and monitor for arrhythmia. Acute on chronic CHF, pulmonary edema - * Admitted to the ICU * Will do serial troponins and EKGs * We will start him on injection Lasix 20 milligrams IV state followed by doses after repleation of serum potassium. * We'll follow cardiology recommendations * We will follow echocardiogram * Vitals every shift * We will give tab Aspirin 325mg state and 81mg later on. * We'll continue tablet atorvastatin 80 milligrams daily Hypokalemia and Hypomagnesemia * He was given K - 40 mEq oral and 10 mgs and IV. * We supplemented inj magnesium 2 grams IV * We will follow BEP at 10 o'clock * We'll replete electrolytes accordingly Right foot osteomyelitis - * We'll continue injection Unasyn 3 grams IV 8 hourly * We'll place a consult for podiatry and ID. Chronic pain - * We will continue all pain medication as before including MS-Contin, Oxycodon, Peripheral neuropathy - * We will continue Cymbalta, duloxetine as before Diet -clear liquid diet for overnight followed by heart healthy diet DVT prophylaxis -heparin CODE STATUS-full code
--- NOTE | 2017-04-27 22:22 | Admission Certification ---
Admission Certification Certification Statement - As attending physician, I certify that at the time of - admission, based on clinical presentation, severity of - symptoms, need for further diagnostic testing and - therapeutic interventions, and risk of adverse outcomes - without in-hospital treatment, in my clinical assessment, - this patient requires an acute hospital stay for a minimum - of two nights or longer. I have also considered psychsocial - factors such as support system, advanced age, financial - issues, cognitive issues, and failed out-patient treatments, - past re-admission history, safety of patient, and lack of - compliance as applicable. Specific rationale supporting this admission is: Unresponsive, status post presumed cardiac arrest, acute on chronic diastolic heart failure, severe hypokalemia with hypomagnesemia, needs ICU level of care to monitor for arrhythmias.
--- NOTE | 2017-04-28 01:32 | RADIOLOGY REPORT ---
EXAMINATION: XR CHEST CLINICAL INFORMATION: PICC line position. COMPARISON: None TECHNIQUE: AP portable supine view of the chest. FINDINGS: There is a new right-sided PICC line which has been advanced and now terminates in the mid SVC. There is redemonstrated stable postsurgical appearance of the cardiac mediastinal silhouette with sternotomy wires and scattered surgical clips. There is a small left pleural effusion and associated left basal consolidation/atelectasis. There is redemonstrated prominence of the central pulmonary vessels. No pneumothorax. No acute osseous abnormalities. IMPRESSION: 1. Right-sided PICC line has been advanced and now terminates in the mid SVC. No pneumothorax. 2. Small left pleural effusion with associated left basal consolidation/atelectasis, similar to prior. 3. Persistent vascular congestion, similar to prior. 4. Stable post sternotomy appearance of the cardiac mediastinal silhouette.
[2017-04-28 05:30] VITALS: BP 130/90
[2017-04-28 08:00] VITALS: BP 120/80
--- NOTE | 2017-04-28 08:06 | Cons- CRCU ---
Genaro Hernandes 04/28/17 0806: General Information and HPI Consulting Request Date of Consult: 04/28/17 Requested By: Dr. Hanna Reason for Consult: ? cardiac arrest Source of Information: patient, old records Exam Limitations: no limitations History of Present Illness: 71-year-old gentleman with a history of coronary artery disease, status post CABG, hypertension, rheumatoid arthritis on chronic steroids, avascular necrosis of the hips, status post bilateral hip replacements, iron deficiency anemia and vitamin B12 deficiency, prostate cancer, status post prostatectomy, thyroid cancer status post left partial thyroidectomy, status post partial right third toe amputation 01/10, hospitalized at [facility] one month prior to admission after a fall, resulting in multiple left-sided rib fractures, at which point he underwent partial amputation of the right second toe, most recent admission to [facility] in 04/11 for osteopmyelitis and right second toe amputation and was discharged to [place] on Unasyn which is due to stop on 05/14/2017. Sent from [facility] for episode of questionable cardiac arrest requiring CPR and ventlilation. Patient reports that he was short of breath and then passed out. When he came to , he reports no confusion and remembered the events prior to passing out. Denies fever, chills, weakness of extremities, difficulty with speech, chest pain, palpitations dizziness. Daughter was with him and no involuntary movements were noted. Reports having poor PO intake in the last few days. On interview he reports b/l rib pain which in worse on breathing. Allergies/Medications Allergies: Coded Allergies: No Known Allergies (03/05/17) Home Med List: Ampicillin Sodium/Sulbactam Na (Unasyn 3 Gm Vial) 3 GRAM VIAL 3 GM IV Q6 ANTIBIOTIC, INFECTION Atorvastatin Calcium (Lipitor) 80 MG TABLET 1 TAB PO DAILY hld (Reported) Bupropion HCl (Wellbutrin XL) 150 MG TAB.ER.24H 1 TAB PO DAILY DEPRESSION ( Reported) Cyanocobalamin (Vitamin B-12) 1,000 MCG TABLET 1 TAB PO DAILY VITAMIN SUPPORT (Reported) Duloxetine Hydrochloride (Cymbalta) 30 MG CAPSULE. 1 CAP PO DAILY nerve pain (Reported) Ferrous Sulfate 325 MG (65 MG IRON) TABLET 1 TAB PO DAILY SUPPLEMENT ( Reported) Folic Acid 1 MG TABLET 1 MG PO DAILY Vitamin Gabapentin 600 MG TABLET 1 TAB PO TID nerve pain (Reported) Hydroxychloroquine Sulfate 200 MG TABLET 1 TAB PO BID Rheumatoid Arthritis ( Reported) Metoprolol Tartrate 25 MG TABLET 0.5 TAB PO BID HEART (Reported) Morphine Sulfate 15 MG TABLET 1 TAB PO Q8P PRN PAIN SCALE 7-10 (SEVERE) ( Reported) Multivitamin (One Daily Multivitamin) 1 EACH TABLET 1 TAB PO DAILY MULTIVITAMIN Oxycodone HCl 5 MG TABLET 5 MG PO Q4 HRS NEEDED PRN breakthrough (Reported ) Oxycodone HCl 10 MG TABLET 1 TAB PO Q4 HRS NEEDED PRN PAIN (Reported) Pantoprazole Sodium (Protonix) 40 MG TABLET.DR 1 TAB PO DAILY GI (Reported) Prednisone 5 MG TABLET 1 TAB PO DAILY STEROID (Reported) Sertraline HCl (Zoloft) 100 MG TABLET 1 TAB PO DAILY MENTAL HEALTH (Reported) Thiamine HCl (Vitamin B-1) 50 MG TABLET 50 MG PO DAILY MULTIVITAMIN Zolpidem Tartrate (Ambien) 5 MG TABLET 1 TAB PO QPMP PRN INSOMNIA (Reported) Current Medications: Current Medications Sig/Kim Start time Last Medication Dose Route Stop Time Status Admin Ampicillin Sodium/ 3,000 MG Q6 04/28 1200 AC 04/28 Sulbactam Sodium IV 1209 Sodium Chloride 100 ML Ampicillin Sodium/ 3,000 MG Q6H 04/28 0445 DC 04/28 Sulbactam Sodium IV 0540 Sodium Chloride 100 ML Ampicillin Sodium/ 0 .STK-MED ONE 04/27 221 DC Sulbactam Sodium .ROUTE Ampicillin Sodium/ 3,000 MG Q6 04/27 202 DC 04/27 Sulbactam Sodium IV 2240 Sodium Chloride 100 ML Aspirin 81 MG DAILY 04/28 1000 AC 04/28 PO 1051 Aspirin 0 .STK-MED ONE 04/27 2303 DC PO Aspirin 325 MG ONCE ONE 04/27 2245 DC 04/27 PO 04/27 2246 2302 Atorvastatin Calcium 80 MG 1700 04/27 1851 AC 04/27 PO 2112 Duloxetine HCl 30 MG DAILY 04/27 2017 AC 04/28 PO 1051 Enoxaparin Sodium 40 MG DAILY@0 04/28 2200 AC SC Enoxaparin Sodium 0 .STK-MED ONE 04/27 1953 DC SC Enoxaparin Sodium 40 MG DAILY 04/27 1855 DC 04/27 SC 2145 Furosemide 20 MG ONCE ONE 04/28 0615 DC IV 04/28 0616 Furosemide 0 .STK-MED ONE 04/27 2137 DC IV Furosemide 20 MG ONCE ONE 04/27 2030 DC IV 04/27 2031 Furosemide 20 MG ONCE ONE 04/27 1999 DC / IV 04/27 2000 2145 Gabapentin 600 MG Q8 04/27 2200 AC 04/28 PO 0539 Gabapentin 0 .STK-MED ONE 04/27 2113 DC PO Hydroxyzine HCl 25 MG ONCE ONE 04/27 2130 DC 04/27 PO 04/27 2131 2240 Magnesium Sulfate 1 GM ONCE ONE 04/27 1945 DC 04/27 Dextrose/Water 100 ML IV 04/27 2344 2210 Magnesium Sulfate 1 GM ONCE ONE 04/27 1945 DC 04/27 Dextrose/Water 100 ML IV 04/27 2344 2315 Metoprolol Tartrate 12.5 MG BID 04/27 2200 AC 04/28 PO 1050 Morphine Sulfate 2.5 MG ONCE ONE 04/28 0800 DC 04/28 IV 04/28 0801 0804 Morphine Sulfate 15 MG Q8P PRN 04/27 1900 AC 04/27 PO 1912 Morphine Sulfate 0 .STK-MED ONE 04/27 1744 DC .ROUTE Morphine Sulfate 2 MG ONCE ONE 04/27 1730 DC 04/27 IV 04/27 1731 1744 Oxycodone HCl 0 .STK-MED ONE 04/28 0047 DC PO Oxycodone HCl 0 .STK-MED ONE 04/27 2216 DC PO Oxycodone HCl 5 MG Q4 HRS NEEDED PRN 04/27 1900 AC 04/28 PO 0530 Oxycodone HCl 10 MG Q4-PRN PRN 04/27 1900 AC 04/28 PO 1051 Pantoprazole Sodium 40 MG DAILY 04/27 2017 AC 04/28 IV 1052 Potassium Chloride 10 MEQ Q1H 04/28 0615 DC IV 04/28 0716 Potassium Chloride 0 .STK-MED ONE 04/28 0031 DC PO Potassium Chloride 40 MEQ ONCE ONE 04/28 0000 DC 04/28 PO 04/28 0001 0030 Potassium Chloride 40 MEQ ONCE ONE 04/27 2330 DC 04/28 PO 04/27 2331 0030 Potassium Chloride 0 .STK-MED ONE 04/27 1717 DC PO Potassium Chloride 40 MEQ ONCE ONE 04/27 1645 DC 04/27 PO 04/27 1646 1715 Potassium Chloride 10 MEQ ONCE ONE 04/27 1645 DC 04/27 IV 04/27 1646 1818 Prednisone 5 MG DAILY 04/28 1000 AC 04/28 PO 1050 Sertraline HCl 100 MG DAILY 04/28 1000 AC 04/28 PO 1050 Sertraline HCl 100 MG DAILY 04/27 2018 DC PO Zolpidem Tartrate 5 MG AT BEDTIME NEED.. 04/27 2030 AC PO Review of Systems Review of Systems Constitutional: Denies: chills, diaphoresis, fever, malaise, weakness, unexplained weight loss. Cardiovascular: Reports: chest pain. Denies: edema, orthopena, palpitations, peripheral edema, syncope. Respiratory: Denies: cough, hemoptysis, orthopnea, short of breath, sputum production, stridor, wheezing. GI: Denies: abdominal pain, bloating, constipation, diarrhea, distention, bowel incontinence, melena, nausea, bloody stool, changes in stool, vomiting, steatorrhea. Genitourinary: Denies: discharge, dysuria, frequency, hematuria, hesitation, nocturia, pain, urgency. Past History Travel History Traveled to [place] past 21 day No Medical History Neurological: NONE EENT: NONE Cardiovascular: CAD, hypertension, hyperlipidemia, mitral regurgitation Respiratory: NONE Gastrointestinal: GERD, hiatal hernia, umbilical hernia, diverticulosis coli hx colon TA/TVA Hepatic: NONE Renal: nephrolithiasis Musculoskeletal: chronic back pain, degen joint disease, falls, osteoarthritis, rheumatoid arthritis, hx osteo R foot Psychiatric: alcohol dependence (prev EtOH abuse), depression Endocrine: thyroid Ca Blood Disorders: anemia, B12 deficiency hx Fe def Cancer(s): prostate cancer, thyroid cancer SECURITY CHIEF MUSEUM/Reproductive: NONE Surgical History Surgical History: appendectomy, CABG (x3), cataract removal, hip replacement ( bilateral), prostatectomy Family History Relations & Conditions If Any: FATHER, , Age 81. FH: prostate cancer MOTHER (smoker). , Age 77; Cause: COPD (chronic obstructive pulmonary disease). Psychosocial History Who Do You Live With? spouse, child Services at Home: None Primary Language: Norwegian Living Will? no Power of Trouble Clerk/HCP? no Functional Ability ADLs Independent: dressing, eating, toileting, bathing. Ambulation: independent, cane IADLs Independent: shopping, housework, finances, food prep, telephone, transportation , medication admin. Exam & Diagnostic Data Last 24 Hrs of Vital Signs/I&O Vital Signs Date Time Temp Pulse Resp B/P B/P Pulse O2 O2 Flow FiO2 Mean Ox Delivery Rate 04/28 1200 96 Nasal 2.0L Cannula 04/28 1050 79 125/83 04/28 0800 98.2 68 20 120/80 96 Nasal 2.0L Cannula 04/28 0800 96 Nasal 2.0L Cannula 04/28 0530 96 Nasal 2.0L Cannula 04/28 0530 97.7 72 28 130/90 96 Nasal 2.0L Cannula 04/28 0331 98.2 67 20 125/78 99 Nasal 2.0L Cannula 04/28 0232 98.3 67 20 114/75 99 Nasal 2.0L Cannula 04/28 0131 98.7 68 18 136/92 99 Nasal 2.0L Cannula 04/28 0125 95 Nasal 2.0L Cannula 04/28 0031 97.5 73 18 132/91 92 Room Air 04/27 2330 98.3 68 20 134/88 94 Room Air 04/27 2240 98.0 79 18 134/89 04/27 2115 98.0 79 18 134/89 94 Room Air 04/27 2000 98 Nasal 2.0L Cannula 04/27 1904 97.7 76 18 153/95 95 Nasal 2.0L Cannula 04/27 1723 97.7 65 18 135/77 97 Nasal 2.0L Cannula 04/27 1512 96.1 71 16 137/87 93 Room Air Intake & Output 04/28 1600 04/28 0800 04/28 0000 Intake Total 110 Output Total 750 Balance -640 Intake, IV 110 Number 0 1 Bowel Movements Output, Urine 750 Patient 165 lb Weight Weight Bed scale Measurement Method Physical Exam General Appearance: well developed/nourished, no apparent distress Respiratory: normal breath sounds Cardiovascular: regular rate/rhythm Gastrointestinal: normal bowel sounds, soft Extremities: dressing on right foot. Neurologic/Psych: no motor/sensory deficits, awake, alert, oriented x 3, dye house hand II- XII nml as tested Cranial Nerves: normal speech, PERRL Last 48 Hrs of Labs/Antwan: Laboratory Tests 04/28/17 1210: Sodium Pending, Potassium Pending, Chloride Pending, Carbon Dioxide Pending, Anion Gap Pending, BUN Pending, Creatinine Pending, Glucose Pending, Calcium Pending, Phosphorus Pending, Magnesium Pending, Total Bilirubin Pending, AST Pending, ALT Pending, Troponin I Pending, Albumin Pending 04/28/17 0520: Anion Gap 9, Estimated GFR > 60, BUN/Creatinine Ratio 6.3 L, Troponin I 0.11 *H , CBC w Diff NO MAN DIFF REQ, RBC 3.29 L, MCV 100.0 H, MCH 32.8 H, RDW 17.9 H, MPV 8.8, Gran % 64.5, Lymphocytes % 20.9, Monocytes % 13.1 H, Eosinophils % 0.8, Basophils % 0.7, Absolute Granulocytes 4.6, Absolute Lymphocytes 1.5, Absolute Monocytes 0.9 H, Absolute Eosinophils 0.1, Absolute Basophils 0.1, PUBS MCHC 32.8 L 04/28/17 0500: Troponin I Cancelled 04/28/17 0238: Anion Gap 13, Estimated GFR > 60, Glucose 91, Calcium 8.4, Phosphorus 3.3, Magnesium 1.8, Total Bilirubin 0.4, AST 30, ALT 38, Albumin 3.2 L 04/28/17 0205: Urine Opiates Screen 1954.00, Methadone Screen < 40, Barbiturate Screen < 60, Ur Phencyclidine Scrn < 6.00, Amphetamines Screen < 100, U Benzodiazepines Scrn < 85, Urine Cocaine Screen < 50, Urine Cannabis Screen < 5.00, Urine Color STRAW, Urine Clarity CLEAR, Urine pH 6.5, Ur Specific [place] 1.010, Urine Protein NEG, Urine Ketones NEG, Urine Nitrite NEG, Urine Bilirubin NEG, Urine Urobilinogen 0.2, Ur Leukocyte Esterase NEG, Ur Microscopic EXAM NOT REQUIRED, Urine Hemoglobin NEG, Urine Glucose NEG 04/27/17 2236: Troponin I 0.08 04/27/17 2236: Anion Gap 13, Estimated GFR > 60, BUN/Creatinine Ratio 5.7 L 04/27/17 1525: Anion Gap 11, Estimated GFR > 60, BUN/Creatinine Ratio 6.7 L, Glucose 111 H, Calcium 8.3 L, Phosphorus 3.0, Magnesium 1.3 L, Total Bilirubin 0.5, AST 38, ALT 36, Alkaline Phosphatase 134 H, Creatine Kinase 65, Troponin I 0.02, Pro-B- Natriuretic Pept 19419 H, Total Protein 5.7 L, Albumin 2.9 L, Globulin 2.8, Albumin/Globulin Ratio 1.0 L, PT 12.8 H, INR 1.22 H, APTT 34, CBC w Diff NO MAN DIFF REQ, RBC 3.22 L, MCV 99.5 H, MCH 32.3 H, RDW 18.2 H, MPV 8.6, Gran % 82.2 H, Lymphocytes % 8.3 L, Monocytes % 9.0, Eosinophils % 0.2, Basophils % 0.3, Absolute Granulocytes 7.3 H, Absolute Lymphocytes 0.7 L, Absolute Monocytes 0.8 H, Absolute Eosinophils 0, Absolute Basophils 0, PUBS MCHC 32.5 L Diagnostic Data EKG Results NSR TWI? U waves in V1-v3 CXR Results mild central pulmonary vascular congestion Assessment/Plan Impression/Plan: 71-year-old gentleman with a history of coronary artery disease, status post CABG, hypertension, rheumatoid arthritis on chronic steroids, avascular necrosis of the hips, status post bilateral hip replacements, iron deficiency anemia and vitamin B12 deficiency, prostate cancer, status post prostatectomy, thyroid cancer status post left partial thyroidectomy, status post partial right third toe amputation 01/10, hospitalized at [facility] after a fall, resulting in multiple left-sided rib fractures, at that time he also underwent partial amputation of the right second toe, most recent admission to [facility] in 04/11 for osteomyelitis and right second toe amputation and was discharged to [place] on Unasyn which is due to stop on 05/14/2017. Sent from [facility] for episode of questionable cardiac arrest requiring CPR and ventlilation. Problem list: ? syncope Acute on chronic CHF Hypokalemia-resolved right foot osteomyelitis chronic pain Plan Unclear if he did have cardiac arrest. Unresponsiveness may be secondary to pain meds. Will continue to trend/trop and EKG ( most likely demand) Echo pending Cardio consult placed, spoke to Dr. Stein who is ok with giving him a diet. ortho stats when able. given one dose of IV 20mg lasix continue injection Unasyn 3 grams IV 8 hourly till 05/14/2017. Will need weekly ESR while on unasyn continue Cymbalta, duloxetine, ASA and prednisone replete electrolytes as needed DVT ppx with sc lovenox full code. Problem List: 1. Syncope Consult Acknowledgment - Thank you for your consult request. Acosta Guerin MD 04/28/17 0952: Assessment/Plan Other Findings/Comments: Acosta White M.D. have examined this patient, reviewed available EMR data, personally reviewed images, discussed with resident/PA/DETONATOR MAKER, discussed management plan with housestaff and nursing staff, discussed managment plan all of healthcare providers, discussed management plan with patient and/or family, agreed with resident/PA/DETONATOR MAKER. The past history and parts of the chart have been autopopulated. Impression 71-year-old man with acute on chronic diastolic heart failure presumed cardiac arrests year hypokalemia hypomagnesemia Plan Monitor and complete electrolytes Cardiology consultation Echocardiogram continue aspirin and Lipitor R foot osteomyelitis - podiatry/ID consultation - currently on Unasyn If no events and ok with cardiology DG to telemetry TTS 45 min Consult Acknowledgment - Thank you for your consult request.
[2017-04-28 08:11] LABS: ABSOLUTE BASOPHIL COUNT 0.1 /CUMM (0.0-0.2); ABSOLUTE EOSINOPHIL COUNT 0.1 /CUMM (0.0-0.7); ABSOLUTE GRANULOCYTE CT 4.6 /CUMM (1.4-6.5); ABSOLUTE LYMPH COUNT 1.5 /CUMM (1.2-3.4); ABSOLUTE MONOCYTE COUNT 0.9 /CUMM (0.10-0.60); BASOPHIL % 0.7 % (0.0-2.0); EOSINOPHIL % 0.8 % (0-5); GRANULOCYTE % 64.5 % (42.2-75.2); HEMATOCRIT 32.9 % (42-52); MEAN CORPUSCULAR HGB 32.8 PG (27.0-31.0); MEAN CORPUSCULAR HGB CONC 32.8 G/DL (33.0-37.0); MEAN PLATELET VOLUME 8.8 FL (7.4-10.4); PLATELET COUNT 324 /CUMM (130-400); RBC DISTRIBUTION WIDTH 17.9 % (11.5-14.5); RED BLOOD CELL CT 3.29 /CUMM (4.70-6.10); WHITE BLOOD CELL COUNT 7.2 /CUMM (4.8-10.8)
[2017-04-28 16:00] VITALS: BP 110/70
--- NOTE | 2017-04-28 17:49 | ELECTROENCEPHALOGRAM REPORT ---
Electroencephalogram Report Electroencephalogram Results Date of service: 04/28/17 Attending MD: Acosta Guerin MD Kitchen Designer: Lisa EEG Number: [id number] Test Utilizes: 10-20 system, 21 lead 18 channel digital recording Pertinent Hx/Physical/Neuro Findings/Clin Diagnosis: syncope. Inpatient Medications: Current Medications Sig/Kim Start time Last Medication Dose Route Stop Time Status Admin Ampicillin Sodium/ 3,000 MG Q6 04/28 1200 AC 04/28 Sulbactam Sodium IV 1209 Sodium Chloride 100 ML Ampicillin Sodium/ 3,000 MG Q6H 04/28 0445 DC 04/28 Sulbactam Sodium IV 0540 Sodium Chloride 100 ML Ampicillin Sodium/ 0 .STK-MED ONE 04/27 2216 DC Sulbactam Sodium .ROUTE Ampicillin Sodium/ 3,000 MG Q6 04/27 2020 DC 04/27 Sulbactam Sodium IV 2240 Sodium Chloride 100 ML Aspirin 81 MG DAILY 04/28 1000 AC 04/28 PO 1051 Aspirin 0 .STK-MED ONE 04/27 2303 DC PO Aspirin 325 MG ONCE ONE 04/27 2245 DC 04/27 PO 04/27 2246 2302 Atorvastatin Calcium 80 MG 1700 04/27 1851 AC 04/27 PO 2112 Diclofenac Sodium 1 MAIKEL 4 TIMES/DAY 04/28 1444 AC TOP Duloxetine HCl 30 MG DAILY 04/27 2016 AC 04/28 PO 1051 Enoxaparin Sodium 40 MG DAILY@0 04/28 2200 AC SC Enoxaparin Sodium 0 .STK-MED ONE 04/27 1953 DC SC Enoxaparin Sodium 40 MG DAILY 04/27 1855 DC 04/27 SC 2145 Furosemide 20 MG ONCE ONE 04/28 1445 DC 04/28 IV 04/28 1446 1436 Furosemide 20 MG ONCE ONE 04/28 0615 DC IV 04/28 0616 Furosemide 0 .STK-MED ONE 04/27 2137 DC IV Furosemide 20 MG ONCE ONE 04/27 2029 DC IV 04/27 203 Furosemide 20 MG ONCE ONE 04/27 1999 DC 04/27 IV 04/27 2000 2145 Gabapentin 400 MG Q8 04/28 2200 AC PO Gabapentin 600 MG Q8 04/27 2200 DC 04/28 PO 1426 Gabapentin 0 .STK-MED ONE 04/273 DC PO Hydroxyzine HCl 25 MG ONCE ONE 04/27 213 DC 04/27 PO 04/27 2131 2240 Ibuprofen 400 MG ONCE ONE 04/28 1445 DC 04/28 PO 04/28 1446 1451 Lactobacillus 1 CAP DAILY 04/28 1500 AC Acidophilus PO Magnesium Sulfate 1 GM ONCE ONE 04/27 1945 DC 04/27 Dextrose/Water 100 ML IV 04/27 2344 2210 Magnesium Sulfate 1 GM ONCE ONE 04/27 1945 DC 04/27 Dextrose/Water 100 ML IV 04/27 2344 2315 Metoprolol Tartrate 12.5 MG BID 04/27 2200 AC 04/28 PO 1050 Morphine Sulfate 2.5 MG ONCE ONE 04/28 0800 DC 04/28 IV 04/28 0801 0804 Morphine Sulfate 15 MG Q8P PRN 04/27 1900 AC 04/28 PO 1451 Oxycodone HCl 0 .STK-MED ONE 04/28 0047 DC PO Oxycodone HCl 0 .STK-MED ONE 04/27 2216 DC PO Oxycodone HCl 5 MG Q4 HRS NEEDED PRN 04/27 1900 AC 04/28 PO 0530 Oxycodone HCl 10 MG Q4-PRN PRN 04/27 1900 AC 04/28 PO 1051 Pantoprazole Sodium 40 MG DAILY 04/27 2018 AC 03 IV 1052 Potassium Chloride 10 MEQ Q1H 04/28 0615 DC IV 04/28 0716 Potassium Chloride 0 .STK-MED ONE 04/28 0031 DC PO Potassium Chloride 40 MEQ ONCE ONE 04/28 0000 DC 04/28 PO 04/28 0001 0030 Potassium Chloride 40 MEQ ONCE ONE 04/27 2330 DC 04/28 PO 04/27 2331 0030 Prednisone 5 MG DAILY 04/28 1000 AC 04/28 PO 1050 Sertraline HCl 100 MG DAILY 04/28 1000 AC 04/28 PO 1050 Sertraline HCl 100 MG DAILY 04/27 2019 DC PO Zolpidem Tartrate 5 MG AT BEDTIME NEED.. 04/27 2030 AC PO Interpretation: The recording demonstrates the expected frequency gradient durign wakefulness, faster rhythms frontally and slower posteriorly. The background is composed of fast 14-16 Hertz low amplitude beta anteriorly, and a slower 8 Hertz alpha posteriorly. No focal slowing is detected. No paroxysmal sharps of spikes. Impression: Normal EEG in the awake and drowsy states.
--- NOTE | 2017-04-28 20:33 | Cons- Cardiology ---
General Information and HPI Consulting Request Date of Consult: 04/28/17 Requested By: Acosta Guerin MD History of Present Illness: Trey is a 71 year old male with history of hypertension, dyslipidemia and three vessel coronary artery s/p CABG x 3. He also carries a history of renal insufficiency and alcohol abuse. His bypass grafts consist of a BRUNNER graft to the LAD, an SVG to the second OM and a separate SVG to the RCA. At baseline this patient is anemic and has had diverticulosis. This patient was recently admitted to [facility] after a syncopal episode with rib fractures. He was subsequently sent to [place] for rehab. It should also be noted that this patient has a PICC line for assisted antibiotic therapy due to an osteomyelitis. Yesterday, the patient was lying down in his bed. He sat up and reached for a drink on the nearby table, took a sip and passed out. His daughter, who was with him at the time, noted mild shaking and a flushed appearance and immediately began chest compressions. The patient was unconscious for about 30 seconds and awakened telling them to stop chest compressions which was causing a pain in his chest. The patient was sent to the ER where he was found to be hemodynamically stable in sinus rhythm. His potassium was low. A prior echocardiogram showed a normal EF of 60% with restrictive hemodynamics, mild left ventricular hypertrophy and severe pulmonary hypertension. The left atrium is markedly enlarged. In terms of cardiac valves he has mild to moderate mitral regurgitation, mild tricuspid regurgitation and mild pulmonic insufficiency. Allergies/Medications Allergies: Coded Allergies: No Known Allergies (03/05/17) Home Med List: Ampicillin Sodium/Sulbactam Na (Unasyn 3 Gm Vial) 3 GRAM VIAL 3 GM IV Q6 ANTIBIOTIC, INFECTION Atorvastatin Calcium (Lipitor) 80 MG TABLET 1 TAB PO DAILY hld (Reported) Bupropion HCl (Wellbutrin XL) 150 MG TAB.ER.24H 1 TAB PO DAILY DEPRESSION ( Reported) Cyanocobalamin (Vitamin B-12) 1,000 MCG TABLET 1 TAB PO DAILY VITAMIN SUPPORT (Reported) Duloxetine Hydrochloride (Cymbalta) 30 MG CAPSULE.DR 1 CAP PO DAILY nerve pain (Reported) Ferrous Sulfate 325 MG (65 MG IRON) TABLET 1 TAB PO DAILY SUPPLEMENT ( Reported) Folic Acid 1 MG TABLET 1 MG PO DAILY Vitamin Gabapentin 600 MG TABLET 1 TAB PO TID nerve pain (Reported) Hydroxychloroquine Sulfate 200 MG TABLET 1 TAB PO BID Rheumatoid Arthritis ( Reported) Metoprolol Tartrate 25 MG TABLET 0.5 TAB PO BID HEART (Reported) Morphine Sulfate 15 MG TABLET 1 TAB PO Q8P PRN PAIN SCALE 7-10 (SEVERE) ( Reported) Multivitamin (One Daily Multivitamin) 1 EACH TABLET 1 TAB PO DAILY MULTIVITAMIN Oxycodone HCl 5 MG TABLET 5 MG PO Q4 HRS NEEDED PRN breakthrough (Reported ) Oxycodone HCl 10 MG TABLET 1 TAB PO Q4 HRS NEEDED PRN PAIN (Reported) Pantoprazole Sodium (Protonix) 40 MG TABLET.DR 1 TAB PO DAILY GI (Reported) Prednisone 5 MG TABLET 1 TAB PO DAILY STEROID (Reported) Sertraline HCl (Zoloft) 100 MG TABLET 1 TAB PO DAILY MENTAL HEALTH (Reported) Thiamine HCl (Vitamin B-1) 50 MG TABLET 50 MG PO DAILY MULTIVITAMIN Zolpidem Tartrate (Ambien) 5 MG TABLET 1 TAB PO QPMP PRN INSOMNIA (Reported) Review of Systems Review of Systems: rib pain Past History Travel History Traveled to [place] past 21 day No Medical History Blood Transfusion Hx: Yes Neurological: NONE EENT: NONE Cardiovascular: CAD, hypertension, hyperlipidemia, mitral regurgitation Respiratory: NONE Gastrointestinal: GERD, hiatal hernia, umbilical hernia, diverticulosis coli hx colon TA/TVA Hepatic: NONE Renal: nephrolithiasis Musculoskeletal: chronic back pain, degen joint disease, falls, osteoarthritis, rheumatoid arthritis, hx osteo R foot Psychiatric: alcohol dependence (prev EtOH abuse), depression Endocrine: thyroid Ca Blood Disorders: anemia, B12 deficiency hx Fe def Cancer(s): prostate cancer, thyroid cancer 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 FH: prostate cancer MOTHER (smoker). , Age 77; Cause: COPD (chronic obstructive pulmonary disease). Psychosocial History Where Do You [facility] Who Do You Live With? spouse, child Services at Home: None Primary Language: Syriac Smoking Status: Former Smoker Living Will? no Power of Flag Signaler/HCP? no Functional Ability ADLs Independent: dressing, eating, toileting, bathing. Ambulation: independent, cane IADLs Independent: shopping, housework, finances, food prep, telephone, transportation , medication admin. Exam & Diagnostic Data Vital Signs and I&O Vital Signs Date Time Temp Pulse Resp B/P B/P Pulse O2 O2 Flow FiO2 Mean Ox Delivery Rate 04/28 1603 Nasal 2.0L Cannula 04/28 1600 94 Nasal 2.0L Cannula 04/28 1600 98.2 84 20 110/70 94 Nasal 2.0L Cannula 04/28 1200 96 Nasal 2.0L Cannula 04/28 1050 79 125/83 04/28 0800 98.2 68 20 120/80 96 Nasal 2.0L Cannula 04/28 0800 96 Nasal 2.0L Cannula 04/28 0530 96 Nasal 2.0L Cannula 04/28 0530 97.7 72 28 130/90 96 Nasal 2.0L Cannula 04/28 0331 98.2 67 20 125/78 99 Nasal 2.0L Cannula 04/28 0232 98.3 67 20 114/75 99 Nasal 2.0L Cannula 04/28 0131 98.7 68 18 136/92 99 Nasal 2.0L Cannula 04/28 0125 95 Nasal 2.0L Cannula 04/28 0031 97.5 73 18 132/91 92 Room Air 04/27 2330 98.3 68 20 134/88 94 Room Air 04/27 2240 98.0 79 18 134/89 04/27 2115 98.0 79 18 134/89 94 Room Air Intake & Output 04/28 1600 04/28 0800 04/28 0000 04/27 1600 04/27 0800 04/27 0000 Intake Total 320 110 Output Total 200 750 Balance 120 -640 Intake, IV 120 110 Intake, Oral 200 Number 0 1 Bowel Movements Output, Urine 200 750 Patient 165 lb 164 lb Weight Weight Bed scale Estimated Measurement Method Physical Exam: General: WD/ WN male in NAD; alert and oriented x 3 HEENT: NC/AT, PERRL, EOMI Neck: no JVD Heart: RRR with 2/6 systolic murmur Lungs: clear bilaterally Abdomen: soft, NT, +ve bowel sounds Extremities: no edema Assessment/Plan Assessment/Plan * This patient had a brief syncopal episode. I have a very low suspicion of heart block but a ventricular dysrhythmia in this patient with known coronary artery disease and a low potassium is possible. He may also have had a seizure although I am a bit less suspicious of this. The most likely cause of this event is orthostasis since it began in a sedentary patient upon becoming upright to get something to drink. This is likely exacerbated by medications that cause vasodilitation and hypotension such as Gabepentin and his narcotics as well as his beta dez. This is not the description of a vasovagal event however. The cause of his syncope is important since it is a recurrent event that has resulted in severe injury. * Recommend: 1) Monitor on telemetry for dysrhythmias 2) Check orthostatic blood pressure 3) decrease all medications that cause vasodilatation and hypotension to the extent possible including weaning down Gabapentin and minimizing narcotics 4) obtain an EEG and a neurology consult 5) maintain normal electrolytes. * This patient also complains of shortness of breath which may be due to rib pain preventing deep inspiration; nevertheless he has an increased BNP and pulmonary vascular congestion on his chest X-ray. I would therefore treat him cautiously for CHF with gentle diuresis. Give Lasix at 20mg IV daily on monitor for adequate urine output. Obtain a repeat echocardiogram. * Borderline rise in cardiac troponin. I do not think this is significant or indicative of an TN. His chest discomfort is musculoskeletal. Consult Acknowledgment - Thank you for your consult request.
[2017-04-28 21:00] VITALS: BP 112/64
[2017-04-29 06:28] LABS: ABSOLUTE BASOPHIL COUNT 0.1 /CUMM (0.0-0.2); ABSOLUTE EOSINOPHIL COUNT 0.2 /CUMM (0.0-0.7); ABSOLUTE LYMPH COUNT 1.8 /CUMM (1.2-3.4); ABSOLUTE MONOCYTE COUNT 0.9 /CUMM (0.10-0.60); BASOPHIL % 0.8 % (0.0-2.0); EOSINOPHIL % 2.5 % (0-5); GRANULOCYTE % 57.6 % (42.2-75.2); HEMATOCRIT 30.5 % (42-52); MEAN CORPUSCULAR HGB CONC 32.1 G/DL (33.0-37.0); MEAN CORPUSCULAR VOLUME 99.8 FL (80.0-94.0); MEAN PLATELET VOLUME 8.6 FL (7.4-10.4); PLATELET COUNT 265 /CUMM (130-400); RBC DISTRIBUTION WIDTH 17.8 % (11.5-14.5); RED BLOOD CELL CT 3.06 /CUMM (4.70-6.10); WHITE BLOOD CELL COUNT 6.9 /CUMM (4.8-10.8)
[2017-04-29 06:57] VITALS: BP 122/64
--- NOTE | 2017-04-29 07:59 | PN- Housestaff ---
See Addendum Subjective Follow-up For: ?cardiac arrest vs syncope Subjective: Transferred from ICU last night. No overnight events. Feels ok, didn't sleep well and still having right sided rib pain associated with chest compressions he received. No SOB. Some abd pain but no N/V/further diarrhea. Review of Systems Constitutional: Reports: no symptoms. EENTM: Reports: no symptoms. Cardiovascular: Reports: see HPI. Respiratory: Reports: no symptoms. Gastrointestinal: Reports: see HPI. Genitourinary: Reports: no symptoms. Musculoskeletal: Reports: no symptoms. Skin: Reports: no symptoms. Neurological/Psychological: Reports: no symptoms. Hematologic/Endocrine: Reports: no symptoms. Immunologic/Allergic: Reports: no symptoms. Objective Last 24 Hrs of Vital Signs/I&O Vital Signs Date Time Temp Pulse Resp B/P B/P Pulse O2 O2 Flow FiO2 Mean Ox Delivery Rate 04/29 0657 98.2 76 18 122/64 94 Nasal Cannula 04/29 0000 Nasal 2.0L Cannula 04/28 2156 74 112/64 04/28 2100 98.2 75 16 112/64 95 Nasal 2.0L Cannula 04/28 1603 Nasal 2.0L Cannula 04/28 1600 94 Nasal 2.0L Cannula 04/28 1600 98.2 84 20 110/70 94 Nasal 2.0L Cannula 04/28 1200 96 Nasal 2.0L Cannula 04/28 1050 79 125/83 04/28 0800 98.2 68 20 120/80 96 Nasal 2.0L Cannula 04/28 0800 96 Nasal 2.0L Cannula Intake & Output 04/29 0800 04/29 0000 04/28 1600 Intake Total 320 400 320 Output Total 200 Balance 320 400 120 Intake, IV 220 120 Intake, Oral 100 400 200 Output, Urine 200 Physical Exam General Appearance: Alert, Oriented X3, Cooperative, No Acute Distress Cardiovascular: Regular Rate, Normal S1, Normal S2, chest tender to palpation Lungs: Clear to Auscultation Abdomen: Normal Bowel Sounds, Soft, mildly tender Neurological: Normal Speech Extremities: No Edema, Normal Pulses, No Tenderness/Swelling Current Medications: Current Medications Sig/Kim Start time Last Medication Dose Route Stop Time Status Admin Ampicillin Sodium/ 3,000 MG Q6 04/28 1200 AC 04/29 Sulbactam Sodium IV 0540 Sodium Chloride 100 ML Ampicillin Sodium/ 3,000 MG Q6H 04/28 0445 DC 04/28 Sulbactam Sodium IV 0540 Sodium Chloride 100 ML Aspirin 81 MG DAILY 04/28 1000 AC 04/28 PO 1051 Atorvastatin Calcium 80 MG 1700 04/27 1851 AC 04/28 PO 1749 Diclofenac Sodium 1 MAIKEL 4 TIMES/DAY 04/28 1444 AC TOP Duloxetine HCl 30 MG DAILY 04/27 2016 AC 04/28 PO 1051 Enoxaparin Sodium 40 MG DAILY@2200 04/28 2200 AC 04/28 SC 2157 Enoxaparin Sodium 40 MG DAILY 04/27 1855 DC 04/27 SC 2145 Furosemide 20 MG DAILY 04/29 1000 AC IV PUSH Furosemide 20 MG ONCE ONE 04/28 1445 DC 04/28 IV 04/28 1446 1436 Gabapentin 400 MG Q8 04/28 2200 AC 04/29 PO 0540 Gabapentin 600 MG Q8 04/27 2200 DC 04/28 PO 1426 Ibuprofen 400 MG ONCE ONE 04/28 1445 DC 04/28 PO 04/28 1446 1451 Lactobacillus 1 CAP DAILY 04/28 1500 AC 04/28 Acidophilus PO 1748 Metoprolol Tartrate 12.5 MG BID 04/27 2199 AC 04/28 PO 2156 Morphine Sulfate 2.5 MG ONCE ONE 04/28 0800 DC 04/28 IV 04/28 0801 0804 Morphine Sulfate 15 MG Q8P PRN 04/27 190 AC 04/28 PO 1451 Oxycodone HCl 5 MG ONCE ONE 04/29 0100 DC 04/29 PO 04/29 0101 0111 Oxycodone HCl 5 MG Q4 HRS NEEDED PRN 04/27 1900 AC 04/29 PO 0539 Oxycodone HCl 10 MG Q4-PRN PRN 04/27 1900 AC 04/28 PO 1051 Pantoprazole Sodium 40 MG DAILY 04/27 2017 AC 04/28 IV 1052 Prednisone 5 MG DAILY 04/28 1000 AC 04/28 PO 1050 Sertraline HCl 100 MG DAILY 04/28 1000 AC 04/28 PO 1050 Zolpidem Tartrate 5 MG AT BEDTIME NEED.. 04/27 2030 AC 04/28 PO 2201 Last 24 Hrs of Lab/Antwan Results Last 24 Hrs of Labs/Mics: Laboratory Tests 04/29/17 0545: Anion Gap 9, Estimated GFR > 60, Glucose 88, Calcium 8.5, Phosphorus 3.8, Magnesium 1.7, Total Bilirubin 0.4, AST 23, ALT 36, Albumin 3.0 L, CBC w Diff NO MAN DIFF REQ, RBC 3.06 L, MCV 99.8 H, MCH 32.0 H, RDW 17.8 H, MPV 8.6, Gran % 57.6, Lymphocytes % 26.3, Monocytes % 12.8 H, Eosinophils % 2.5, Basophils % 0.8, Absolute Granulocytes 4.0, Absolute Lymphocytes 1.8, Absolute Monocytes 0.9 H, Absolute Eosinophils 0.2, Absolute Basophils 0.1, PUBS MCHC 32.1 L, ESR Westergren Pending 04/28/17 1210: Anion Gap 8, Estimated GFR > 60, Glucose 84, Calcium 8.6, Phosphorus 3.6, Magnesium 1.8, Total Bilirubin 0.5, AST 27, ALT 37, Troponin I 0.07, Albumin 3.1 L, Triglycerides 68, Cholesterol 130, LDL Cholesterol, Calc 53 L, HDL Cholesterol 64 H, Cholesterol/HDL Ratio 2, TSH 4.040, Free T4 1.22 Microbiology 04/28 1455 STOOL: Clostridium difficile Toxin A & B - COLB 04/28 1455 STOOL: Stool Culture - COLB Assessment/Plan Assessment: Mr. Vyas is a 71yo M with PMH of CAD, HTN, HLD, MR, GERD, diverticulosis, nephrolithiasis, EtOH, depression, thyroid cancer, prostate cancer, and anemia who was BIBA from [facility] after a witnessed episode of syncope. Problem List 1. Syncope 2. Severe hypokalemia 3. Macrocytic anemia 4. Acute decompensated heart failure 5. Diarrhea #Syncope: History of this syncopal episode is unclear. There are reports that it may have been a cardiac arrest and he did receive several rounds of CPR though there are also reports that he just passed out. Cardiology seems to think there is a low suspicion of heart block. Ventricular dysrhythmia secondary to electrolyte abnormalities is possible. EEG was normal but this does not rule out seizure. He does not have any history of seizures though. Other possible cause of his syncope is opiates. His urine tox was positive for opiates but this is a prescribed medication. it is possible that he overdosed. Orthostatic vitals negative. -Follow up TTE -Physical therapy consult -Appreciate cardiology recommendations -Appreciate neurology recommendations -Monitor electrolytes -We will reduce the opioid dosages -Tapering gabapentin #Acute decompensated heart failure: There is likely an element of CHF given increased BNP and pulmonary vascular congestion on x-ray. -Furosemide 20 mg IV daily #Diarrhea: Has had recent antibiotic use. However he has not had further episodes of diarrhea in the hospital. -Culture stool if further diarrhea #Chronic medical problems: -Continue amp/sulbactam until 05/14/17 for osteo. -continue home Lactobacillus, diclofenac, sertraline, prednisone, aspirin, metoprolol, zolpidem, pantoprazole, duloxetine, atorvastatin DVT prophylaxis with enoxaparin Heart healthy diet FC Problem List: 1. Syncope Pain Ratin Pain Location: rib Pain Goal: Remain pain free Pain Plan: see a/p Tomorrow's Labs & Rationales: cbc, bep,mg
--- NOTE | 2017-04-29 10:08 | Discharge Summary ---
See Addendum Visit Information Visit Dates Admission Date: 04/27/17 Discharge Date: 05/03/2017 Hospital Course Course Attending Physician: Elda HANSON,Ralph James Primary Care Physician: Shania HANSON,Yasmin Benítez Hospital Course: 71 yo M with h/o CAD s/p CABG, HTN, rheumatoid arthritis on prednisone and plaquenil, avascular necrosis s/p bilateral hip replacements, prostate and thyroid cancer, chronic nonhealing ulcer of right foot s/p partial third toe amputation, most recently (Apr 13) s/p second toe amputation of right foot for osteomyelitis (OR cultures growing MSSA) now with a PICC line on IV Unasyn until May 14, is brought in from [facility] after an unresponsive episode which was reported as a witnessed cardiac arrest. History obtained from patient's daughter at bedside patient has had nonbloody diarrhea (4-5 episodes/ day) for 5 days associated with nausea and poor PO intake. He has had exertional dyspnea for past 2 days. While he was resting and drinking gingerale, daughter noticed he became unresponsive, she herself immediately started CPR, RN called others for help, CPR was continued and patient was bagged as well for about 4-5 minutes before patient woke up. He was placed on NRB 93% sats. --- Vitals are stable, except for O2 sats 92% RA --> 95% on 2L. Exam: AAO, elderly male in distress due to anxiety, MMM, neck mild JVD +, diffuse skin changes due to rheumatoid, Chest bibasilar crackles, Heart S1S2 regular, systolic murmur+, LE: no edema, Right foot surgical site CDI dressing done. Right PICC line+. Labs: no leukocytosis, H/H 10.4/32.1, macrocytic anemia, INR 1.22, K 2.6, BUN 4, creat 0.6, Mag 1.3, alk phos 134, trop 0.02, proBNP 78221, UA clear, Utox neg. CXR: mild central pulmonary vascular congestion. Head CT neg. EKG: SR with TWI and ?U-waves in V1-3 (new), Qtc 499. Echo (2016): EF 60%, mild LVH, moderate to severe pulmonary hypertension, enlarged left atrium, mild to moderate MR. Assessment and plan: 1. Unresponsive episode, status post presumed cardiac arrest requiring CPR and ventilation initial troponin was 0.02 --> increased to 0.08. 2. Acute on chronic diastolic heart failure with pulmonary hypertension exertional dyspnea, JVD, bibasilar crackles and elevated proBNP. 3. History of CAD s/p CABG 4. Severe hypokalemia with EKG changes 5. Hypomagnesemia 6. Nausea and diarrhea in the setting of antibiotic use 7. Right foot osteomyelitis s/p 2nd toe amputation #Syncope/cardiac arrest: History of this syncopal episode was unclear. There are reports that it may have been a cardiac arrest and he did receive several rounds of CPR though there are also reports that he just passed out. Cardiology seems to think there is a low suspicion of heart block. Ventricular dysrhythmia secondary to electrolyte abnormalities is possible. EEG was normal. He does not have any history of seizures though. Other possible cause of his syncope is opiates. His urine tox was positive for opiates but this is a prescribed medication. it is possible that he overdosed. Orthostatic vitals were negative. Transthoracic echocardiogram showed Normal EF of 55% with restrictive hemodynamics. Moderate pulmonary hypertension. He was continuously monitored on the vehicle monitor technician. Events were uneventful. Electrolytes were repleted with goal potassium greater than 4 and magnesium greater than 2. Narcotics were weaned off. Also his gabapentin dose was decreased. #Acute decompensated heart failure There is likely an element of CHF given increased BNP and pulmonary vascular congestion on x-ray. He was treated for acute on chronic diastolic heart failure with IV Lasix 20 mg daily. Ins and outs were monitored daily.Continued on oral lasix 20 daily. #Diarrhea: Has had recent antibiotic use. However he has not had further episodes of diarrhea in the hospital. He remained afebrile with normal WBC count. Hypokalemia Patient presented with potassium 2.6. Potassium was repleted and maintained afebrile for throat the hospital stay. Hypomagnesemia Medication 1.5, repleted. Type II AK Troponin elevated at 0.11. Most likely demand ischemia from CPR, myocardial damage. No EKG changes were noticed. Telemetry monitoring was uneventful. Serial troponin and EKGs were trended #Chronic medical problems: -Continue amp/sulbactam until 05/14/17 for right foot osteomyelitis through PICC line. -continue home Lactobacillus, diclofenac, sertraline, prednisone, aspirin, metoprolol, zolpidem, pantoprazole, duloxetine, atorvastatin left Wrist pain There is severe arthrosis of the radiocarpal and ulnocarpal compartment. There is severe joint space narrowing subchondral sclerosis and subchondral cystic change.There is slight deformity the distal radius perhaps related to old fracture. Outpatient ortho referral was provided. No acute intervention for now. Discussed with patient about the plan Chronic back pain Patient has chronic back pain for which he is on morphine sulfate immediate release 15 mg every 8 as required and oxycodone 10 mg every 4 as required. Off note pain medications were weaned off when he was admitted to [facility] after syncope. However patient wants pain medications at the time of discharge, no matter how much we explained him and his family about the risks of pain medication like falls, opiate overdose, risk of . Irrespective of explaining all the side effects of pain medications patient opted to take them and he is very adamant about them. His daughter was notified about all his pain medication risks. He was discharged on morphine sulfate 15 mg every 8 as required and oxycodone 5 mg every 4 as required. DVT prophylaxis with enoxaparin Heart healthy diet FC Allergies: Coded Allergies: No Known Allergies (03/05/17) Pertinent Lab Results: CXR FINDINGS: Status post median sternotomy. The cardiac and mediastinal contours are unchanged. There is mild central pulmonary vascular congestion new since prior study. No focal consolidation. No pleural effusion. IMPRESSION: Mild central pulmonary vascular congestion new since the exam of 04/16/2017. CT HEAD FINDINGS: There is no evidence of acute intracranial hemorrhage or territorial infarction. No abnormal mass effect or midline shift is seen. Fung to white matter differentiation is well preserved. No extra-axial fluid collections are identified. No hydrocephalus. Proportional prominence of the ventricles and sulcal spaces is consistent with mild volume loss. Patchy periventricular and deep white matter hypoattenuation is consistent with mild small vessel ischemic changes. The osseous structures and soft tissues are normal. Partially visualized left maxillary sinus mucous retention cyst. The mastoid air cells and visualized portions of the paranasal sinuses are otherwise well aerated. IMPRESSION: No acute intracranial pathology. - FINDINGS: There is a new right-sided PICC line which has been advanced and now terminates in the mid SVC. There is redemonstrated stable postsurgical appearance of the cardiac mediastinal silhouette with sternotomy wires and scattered surgical clips. There is a small left pleural effusion and associated left basal consolidation/atelectasis. There is redemonstrated prominence of the central pulmonary vessels. No pneumothorax. No acute osseous abnormalities. IMPRESSION: 1. Right-sided PICC line has been advanced and now terminates in the mid SVC. No pneumothorax. 2. Small left pleural effusion with associated left basal consolidation/atelectasis, similar to prior. 3. Persistent vascular congestion, similar to prior. 4. Stable post sternotomy appearance of the cardiac mediastinal silhouette. ---- CONCLUSIONS 1. Normal EF of 55% with restrictive hemodynamics. 2. Mild left atrial enlargement. 3. Mild to moderate mitral regurgitation. 4. MIld tricuspid regurgitation. 5. Trace aortic insufficiency. 6. Trace pulmonic insufficiency. 7. Moderate pulmonary hypertension Disposition Summary Disposition Principal Diagnosis: Syncope Status post cardiac arrest and CPR Acute on chronic diastolic heart failure Hypokalemia Hypomagnesemia Additional Diagnosis: Right foot osteomyelitis status post second toe amputation Discharge Disposition: SNF Discharge Instructions General Discharge Information Code Status: Full Code Patient's Diet: As tolerated Patient's Activity: As tolerated Follow-Up Instructions/Appts: Follow-up with PCP in 1-2 weeks after discharge. Follow-up with shop supervisor in 1 week after discharge. Follow-up with asphalt heater operator in 1 week after discharge. Medications at Discharge Discharge Medications: Stop taking the following medications: Oxycodone HCl (Oxycodone HCl) 10 MG TABLET ORAL EVERY 4 HOURS NEEDED as needed for PAIN Gabapentin (Gabapentin) 600 MG TABLET ORAL THREE TIMES DAILY Continue taking these medications: Atorvastatin Calcium (Lipitor) 80 MG TABLET 1 Tablet ORAL DAILY Comments: Last Taken: 04/16/17 Time: 5PM Sertraline HCl (Zoloft) 100 MG TABLET 1 Tablet ORAL DAILY Comments: Last Taken: 04/16/17 Time: 10:06AM Pantoprazole Sodium (Protonix) 40 MG TABLET.DR 1 Tablet ORAL DAILY Comments: Last Taken: 07/06/16 Time: 10:00 AM Cyanocobalamin (Vitamin B-12) 1,000 MCG TABLET 1 Tablet ORAL DAILY Comments: Last Taken:07/06/16 Time:1000 Zolpidem Tartrate (Ambien) 5 MG TABLET 1 Tablet ORAL Every night as needed as needed for INSOMNIA Comments: Last Taken: 04/15/17 Time: 9:53PM Bupropion HCl (Wellbutrin XL) 150 MG TAB.ER.24H 1 Tablet ORAL DAILY Comments: Last Taken: 04/16/17 Time: 10:06AM Duloxetine Hydrochloride (Cymbalta) 30 MG CAPSULE.DR 1 Capsule ORAL DAILY Comments: Last Taken: 04/16/17 Time: 10:06AM Ferrous Sulfate (Ferrous Sulfate) 325 MG (65 MG IRON) TABLET 1 Tablet ORAL DAILY Comments: NOT GIVEN IN HOSPITAL Hydroxychloroquine Sulfate (Hydroxychloroquine Sulfate) 200 MG TABLET 1 Tablet ORAL TWICE DAILY Comments: NOT GIVEN IN HOSPITAL Prednisone (Prednisone) 5 MG TABLET 1 Tablet ORAL DAILY Comments: NOT GIVEN IN HOSPITAL Folic Acid (Folic Acid) 1 MG TABLET 1 Milligram ORAL DAILY Qty = 30 Thiamine HCl (Vitamin B-1) 50 MG TABLET 50 Milligram ORAL DAILY Qty = 30 Multivitamin (One Daily Multivitamin) 1 EACH TABLET 1 Tablet ORAL DAILY Qty = 30 Morphine Sulfate (Morphine Sulfate) 15 MG TABLET 1 Tablet ORAL EVERY 8 HOURS NEEDED as needed for PAIN SCALE 7-10 (SEVERE) Comments: Last Taken: 04/16/17 Time: 2:10PM Ampicillin Sodium/Sulbactam Na (Unasyn 3 Gm Vial) 3 GRAM VIAL 3 Gram INTRAVEN EVERY SIX HOURS Days = 28 Oxycodone HCl (Oxycodone HCl) 5 MG TABLET 5 Milligram ORAL EVERY 4 HOURS NEEDED as needed for breakthrough Metoprolol Tartrate (Metoprolol Tartrate) 25 MG TABLET 0.5 Tablet ORAL TWICE DAILY Start taking the following new medications: Gabapentin (Gabapentin) 100 MG CAPSULE 100 Milligram ORAL EVERY 8 HOURS Qty = 90 No Refills Furosemide (Furosemide) 20 MG TABLET 20 Milligram ORAL DAILY Qty = 30 No Refills Copies To: Shania HANSON,Yasmin Benítez
--- NOTE | 2017-04-29 14:30 | ECHOCARDIOGRAM REPORT ---
LENNOX MCINTOSH Age: 71 : 1945 Gender: M Exam Date: 04/28/2017 17:00 Exam Location: [facility] Ht (in): 68 Wt (lb): 164 BSA: 1.90 BP: 125 / 78 Ordering Physician: Jessika Greer MD Referring Physician: Damian Stein MD, PhD Technologist: Kasandra Villanueva [facility] Room Number: 106 Indications: CHEST PAIN Rhythm: Sinus Technical Quality: fair FINDINGS Left Ventricle Normal left ventricular size, wall thickness and systolic function with no obvious regional wall motion abnormalities. Diastolic filling pattern shows restrictive hemodynamics. The ejection fraction is visually estimated at 55%. Right Ventricle The right ventricle is normal in size and function. Right Atrium The right atrium is normal in size. Left Atrium The left atrium is mildly enlarged. The interatrial septum is intact. Mitral Valve The mitral valve demonstrates mild posterior annular calcification with normal function. There is mild to moderate mitral regurgitation. Aortic Valve Structurally normal aortic valve without significant sclerosis or stenosis. There is trace aortic regurgitation. Tricuspid Valve The tricuspid valve is normal in structure and function. There is mild tricuspid regurgitation. Pulmonary artery systolic pressure is moderately increased to 55mmHg. Pulmonic Valve Structurally normal pulmonic valve. There is trace pulmonic regurgitation. Pericardium Normal pericardium without effusion. No pleural effusion. Great Vessels Normal aortic root dimension. The aortic arch and great vessels are well seen and are normal. CONCLUSIONS 1. Normal EF of 55% with restrictive hemodynamics. 2. Mild left atrial enlargement. 3. Mild to moderate mitral regurgitation. 4. MIld tricuspid regurgitation. 5. Trace aortic insufficiency. 6. Trace pulmonic insufficiency. 7. Moderate pulmonary hypertension. Damian Stein M.D. (Electronically Signed) Final Date: 29 April 2017 14:29 MEASUREMENTS (Male / Female) Normal Values 2D ECHO LV Diastolic Diameter PLAX 5.7 cm 4.2 - 5.9 / 3.9 - 5.3 cm LV Systolic Diameter PLAX 4.0 cm 2.1 - 4.0 cm LV Fractional Shortening PLAX 29.8 % 25 - 46 % LV Ejection Fraction 2D Teich 56.3 % IVS Diastolic Thickness 1.0 cm LVPW Diastolic Thickness 1.1 cm LV Relative Wall Thickness 0.4 RV Internal Dim ED PLAX 3.0 cm 1.9 - 3.8 cm LVOT Diameter 2.3 cm Aortic Root Diameter 3.4 cm LA Systolic Diameter LX 4.3 cm 3.0 - 4.0 / 2.7 - 3.8 cm LA Volume 79.0 cm 18 - 58 / 22 - 52 cm Ascending Aorta Diameter 3.5 cm DOPPLER AV Peak Velocity 143.0 cm/s AV Peak Gradient 8.2 mmHg AV Mean Velocity 99.3 cm/s AV Mean Gradient 5.0 mmHg AV Velocity Time Integral 25.8 cm LVOT Peak Velocity 97.0 cm/s LVOT Peak Gradient 3.8 mmHg LVOT Mean Velocity 65.3 cm/s LVOT Mean Gradient 2.0 mmHg LVOT Velocity Time Integral 19.1 cm LVOT Stroke Volume 79.4 cm AV Area Cont Eq vti 3.1 cm AV Area Cont Eq pk 2.8 cm MV Peak Velocity 104.0 cm/s MV Peak Gradient 4.3 mmHg MV Mean Velocity 56.3 cm/s MV Mean Gradient 1.0 mmHg Mitral E Point Velocity 99.2 cm/s Mitral A Point Velocity 47.4 cm/s Mitral E to A Ratio 2.1 MV PHT Velocity 106.0 cm/s MV Deceleration Wood 517.0 cm/s MV Pressure Half Time 61.5 ms MV Area PHT 3.6 cm MV Deceleration Time 114.0 ms TR Peak Velocity 346.0 cm/s TR Peak Gradient 47.9 mmHg Right Atrial Pressure 10.0 mmHg Pulmonary Artery Systolic Pressu 57.9 mmHg Right Ventricular Systolic Press 57.9 mmHg PV Peak Velocity 109.0 cm/s PV Peak Gradient 4.8 mmHg PV Mean Velocity 71.4 cm/s PV Mean Gradient 2.0 mmHg PV Velocity Time Integral 23.3 cm LV E' Lateral Velocity 11.1 cm/s Mitral E to LV E' Lateral Ratio 8.9 LV E' Septal Velocity 6.9 cm/s Mitral E to LV E' Septal Ratio 14.3
--- NOTE | 2017-04-29 15:31 | PN- Cardiology ---
Subjective Subjective: * Patient continues to have some rib pain without shortness of breath. No lightheadedness. * No dysrhythmias Objective Vital Signs and I&Os Vital Signs Date Time Temp Pulse Resp B/P B/P Pulse O2 O2 Flow FiO2 Mean Ox Delivery Rate 04/29 0850 76 122/64 04/29 0800 Nasal 2.0L Cannula 04/29 0657 98.2 76 18 122/64 94 Nasal Cannula 04/29 0000 Nasal 2.0L Cannula 04/28 2156 74 112/64 04/28 2100 98.2 75 16 112/64 95 Nasal 2.0L Cannula 04/28 1603 Nasal 2.0L Cannula 04/28 1600 94 Nasal 2.0L Cannula 04/28 1600 98.2 84 20 110/70 94 Nasal 2.0L Cannula Intake & Output 04/29 1600 04/29 0800 04/29 0000 04/28 1600 04/28 0800 04/28 0000 Intake Total 580 320 400 320 110 Output Total 200 750 Balance 580 320 400 120 -640 Intake, IV 100 220 120 110 Intake, Oral 480 100 400 200 Number 0 1 Bowel Movements Output, Urine 200 750 Patient 165 lb Weight Weight Bed scale Measurement Method Physical Exam: General: WD/ WN male in NAD; alert and oriented x 3 HEENT: NC/AT, PERRL, EOMI Neck: no JVD Heart: RRR with 2/6 systolic murmur Lungs: clear bilaterally Abdomen: soft, NT, +ve bowel sounds Extremities: no edema Assessment/Plan Assessment/Plan * This patient had a brief syncopal episode. I have a very low suspicion of heart block but a ventricular dysrhythmia in this patient with known coronary artery disease and a low potassium is possible. His echo shows a normal EF which make a malignant ventricular dysrhythmia much less likely. There is no evidence of heart block on telemetry. His potassium is now in the normal range. The most likely cause of this event is orthostasis since it began in a sedentary patient upon becoming upright to get something to drink. This is likely exacerbated by medications that cause vasodilitation and hypotension such as Gabepentin and his narcotics as well as his beta dez. [facility]. Both his Gabepentin and narcotics for pain relief need to be weaned down to the minimum tolerated. This patient did not have a vasovagal event. Seizure should also be considered in the differntial and an EEG is reasonable. i * Recommend: 1) Monitor on telemetry for dysrhythmias for another day 2) he is negative for orthostatic hypotension but these vitals were checked well after the patient came to the hospital 3) decrease all medications that cause vasodilatation and hypotension to the extent possible including weaning down Gabapentin and minimizing narcotics 4) obtain an EEG and a neurology consult 5) maintain normal electrolytes. * This patient also complains of shortness of breath which may be due to rib pain preventing deep inspiration; nevertheless he has an increased BNP and pulmonary vascular congestion on his chest X-ray. I would therefore treat him cautiously for CHF with gentle diuresis. Give Lasix at 40mg po daily on monitor his BUN, creatinine and potassium. * Borderline rise in cardiac troponin. I do not think this is significant or indicative of an HI. His chest discomfort is musculoskeletal. Continue telemetry? Yes
[2017-04-29 15:32] VITALS: BP 120/66
[2017-04-29 22:25] VITALS: BP 120/80
[2017-04-30 05:52] LABS: ABSOLUTE BASOPHIL COUNT 0 /CUMM (0.0-0.2); ABSOLUTE EOSINOPHIL COUNT 0.2 /CUMM (0.0-0.7); ABSOLUTE GRANULOCYTE CT 3.9 /CUMM (1.4-6.5); ABSOLUTE LYMPH COUNT 1.6 /CUMM (1.2-3.4); ABSOLUTE MONOCYTE COUNT 0.7 /CUMM (0.10-0.60); BASOPHIL % 0.7 % (0.0-2.0); EOSINOPHIL % 2.4 % (0-5); GRANULOCYTE % 61.2 % (42.2-75.2); HEMATOCRIT 29.9 % (42-52); MEAN CORPUSCULAR HGB 31.4 PG (27.0-31.0); MEAN CORPUSCULAR HGB CONC 31.3 G/DL (33.0-37.0); MEAN CORPUSCULAR VOLUME 100.3 FL (80.0-94.0); MEAN PLATELET VOLUME 8.6 FL (7.4-10.4); PLATELET COUNT 233 /CUMM (130-400); RBC DISTRIBUTION WIDTH 17.3 % (11.5-14.5); RED BLOOD CELL CT 2.98 /CUMM (4.70-6.10); WHITE BLOOD CELL COUNT 6.4 /CUMM (4.8-10.8)
[2017-04-30 06:18] VITALS: BP 136/76
--- NOTE | 2017-04-30 07:23 | PN- Housestaff ---
See Addendum Subjective Follow-up For: Syncope Tele-Events Since Last Visit: NSR 60-80 Subjective: No overnight events. Patient feels ok this morning, says he's a little disoriented still and doesn't want to go home yet. No CP, SOB, abd pain, or pain anywhere at this time. Review of Systems Constitutional: Reports: no symptoms. EENTM: Reports: no symptoms. Cardiovascular: Reports: no symptoms. Respiratory: Reports: no symptoms. Gastrointestinal: Reports: no symptoms. Genitourinary: Reports: no symptoms. Musculoskeletal: Reports: no symptoms. Skin: Reports: no symptoms. Neurological/Psychological: Reports: see HPI. Hematologic/Endocrine: Reports: no symptoms. Immunologic/Allergic: Reports: no symptoms. Objective Last 24 Hrs of Vital Signs/I&O Vital Signs Date Time Temp Pulse Resp B/P B/P Pulse O2 O2 Flow FiO2 Mean Ox Delivery Rate 04/30 0000 Nasal 2.0L Cannula 04/29 2224 98.9 72 22 120/80 97 04/29 2125 72 140/88 04/29 1600 Nasal 2.0L Cannula 04/29 1532 98.0 75 18 120/66 93 04/29 0850 76 122/64 04/29 0800 Nasal 2.0L Cannula Intake & Output 04/30 0800 04/30 0000 04/29 1600 Intake Total 650 580 Output Total 400 Balance 250 580 Intake, IV 100 Intake, Oral 650 480 Output, Urine 400 Physical Exam General Appearance: Alert, Oriented X3, Cooperative, No Acute Distress Cardiovascular: Regular Rate, Normal S1, Normal S2 Lungs: Clear to Auscultation Abdomen: Normal Bowel Sounds, Soft, No Tenderness Extremities: No Edema, Normal Pulses, No Tenderness/Swelling Current Medications: Current Medications Sig/Kim Start time Last Medication Dose Route Stop Time Status Admin Ampicillin Sodium/ 3,000 MG Q6 04/28 1200 AC 04/30 Sulbactam Sodium IV 0516 Sodium Chloride 100 ML Aspirin 81 MG DAILY 04/28 1000 AC 04/29 PO 0850 Atorvastatin Calcium 80 MG 1700 04/27 1851 AC 04/29 PO 1732 Diclofenac Sodium 1 MAIKEL 4 TIMES/DAY 04/28 1444 AC 04/29 TOP 2125 Duloxetine HCl 30 MG DAILY 04/27 2017 AC 04/29 PO 0850 Enoxaparin Sodium 40 MG DAILY@2200 04/28 2200 AC 04/29 SC 2123 Furosemide 40 MG DAILY 04/30 1000 AC PO Furosemide 20 MG DAILY 04/29 1000 DC 04/29 IV PUSH 0851 Gabapentin 300 MG Q8 04/29 1400 AC 04/30 PO 0516 Gabapentin 400 MG Q8 04/28 2200 DC 04/29 PO 0540 Lactobacillus 1 CAP DAILY 04/28 1500 AC 04/29 Acidophilus PO 0851 Metoprolol Tartrate 12.5 MG BID 04/27 2199 AC 04/29 PO 2125 Morphine Sulfate 15 MG Q8P PRN 04/27 1900 AC 04/29 PO 2124 Oxycodone HCl 5 MG Q4 HRS NEEDED PRN 04/27 1900 AC 04/29 PO 1741 Oxycodone HCl 10 MG Q4-PRN PRN 04/27 190 DC 04/28 PO 1051 Pantoprazole Sodium 40 MG DAILY 04/27 2018 AC 04/29 IV 0851 Patient Medication 1 ED ONE ONE 04/29 1130 DC 04/29 Teaching ED 04/29 1131 1135 Prednisone 5 MG DAILY 04/28 1000 AC 04/29 PO 0850 Sertraline HCl 100 MG DAILY 04/28 1000 AC 04/29 PO 0851 Zolpidem Tartrate 5 MG AT BEDTIME NEED.. 04/27 2030 AC 04/28 PO 2201 Last 24 Hrs of Lab/Antwan Results Last 24 Hrs of Labs/Mics: Laboratory Tests 04/30/17 0525: Anion Gap 7, Estimated GFR > 60, BUN/Creatinine Ratio 22.5, Magnesium 1.6, CBC w Diff NO MAN DIFF REQ, RBC 2.98 L, MCV 100.3 H, MCH 31.4 H, RDW 17.3 H, MPV 8.6, Gran % 61.2, Lymphocytes % 25.1, Monocytes % 10.6 H, Eosinophils % 2.4, Basophils % 0.7, Absolute Granulocytes 3.9, Absolute Lymphocytes 1.6, Absolute Monocytes 0.7 H, Absolute Eosinophils 0.2, Absolute Basophils 0, PUBS MCHC 31.3 L Assessment/Plan Assessment: Mr. Vyas is a 71yo M with PMH of CAD, HTN, HLD, MR, GERD, diverticulosis, nephrolithiasis, EtOH, depression, thyroid cancer, prostate cancer, and anemia who was BIBA from [facility] after a witnessed episode of syncope. Problem List 1. Syncope 2. Severe hypokalemia 3. Macrocytic anemia 4. Acute decompensated heart failure 5. Diarrhea #Syncope: History of this syncopal episode is unclear. There are reports that it may have been a cardiac arrest and he did receive several rounds of CPR though there are also reports that he just passed out. Cardiology seems to think there is a low suspicion of heart block. Ventricular dysrhythmia secondary to electrolyte abnormalities is possible. EEG was normal but this does not rule out seizure. He does not have any history of seizures though. Other possible cause of his syncope is opiates. His urine tox was positive for opiates but this is a prescribed medication. it is possible that he overdosed. Orthostatic vitals negative. TTE revealed EF 55%, restrictive hemodynamics, and RV pressure 55 mmHg. -Physical therapy consult -Appreciate cardiology recommendations -Appreciate neurology recommendations -Monitor electrolytes -We will reduce the opioid dosages -Tapering gabapentin #Acute decompensated heart failure: There is likely an element of CHF given increased BNP and pulmonary vascular congestion on x-ray. -Furosemide 40 mg by mouth daily #Diarrhea: Has had recent antibiotic use. However he has not had further episodes of diarrhea in the hospital. -Culture stool if further diarrhea #Chronic medical problems: -Continue amp/sulbactam until 05/14/17 for osteo of right foot. -continue home Lactobacillus, diclofenac, sertraline, prednisone, aspirin, metoprolol, zolpidem, pantoprazole, duloxetine, atorvastatin DVT prophylaxis with enoxaparin Heart healthy diet FC Problem List: 1. Syncope Pain Ratin Pain Location: no pain Pain Goal: Remain pain free Pain Plan: see a/po Tomorrow's Labs & Rationales: none
[2017-04-30 14:22] VITALS: BP 116/74
--- NOTE | 2017-04-30 20:14 | PN- Cardiology ---
Subjective Subjective: * Patient continues to have some rib pain without shortness of breath. No lightheadedness. * No dysrhythmias Objective Vital Signs and I&Os Vital Signs Date Time Temp Pulse Resp B/P B/P Pulse O2 O2 Flow FiO2 Mean Ox Delivery Rate 04/30 1422 98.6 80 22 116/74 92 Nasal 2.0L Cannula 04/30 1253 Nasal 2.0L Cannula 04/30 1025 69 130/82 04/30 0800 Nasal 2.0L Cannula 04/30 0618 98.2 69 20 136/76 94 Nasal Cannula 04/30 0000 Nasal 2.0L Cannula 04/29 2225 98.9 72 22 120/80 97 04/29 2125 72 140/88 Intake & Output 04/30 1600 04/30 0804/30 0000 04/29 1600 04/29 0804/29 0000 Intake Total 824 300 650 580 320 400 Output Total 400 Balance 824 300 250 580 320 400 Intake, IV 140 200 100 220 Intake, Oral 684 100 650 480 100 400 Output, Urine 400 Physical Exam: General: WD/ WN male in NAD; alert and oriented x 3 HEENT: NC/AT, PERRL, EOMI Neck: no JVD Heart: RRR with 2/6 systolic murmur Lungs: clear bilaterally Abdomen: soft, NT, +ve bowel sounds Extremities: no edema Assessment/Plan Assessment/Plan * This patient had a brief syncopal episode. I have a very low suspicion of heart block but a ventricular dysrhythmia in this patient with known coronary artery disease and a low potassium is possible. His echo shows a normal EF which make a malignant ventricular dysrhythmia much less likely. There is no evidence of heart block on telemetry. His potassium is now in the normal range. The most likely cause of this event is orthostasis since it began in a sedentary patient upon becoming upright to get something to drink. This is likely exacerbated by medications that cause vasodilitation and hypotension such as Gabepentin and his narcotics as well as his beta dez. [facility]. Both his Gabepentin and narcotics for pain relief need to be weaned down to the minimum tolerated. This patient did not have a vasovagal event. * Patient is stable for discharge from a cardiac standpoint. Begin Kcl 20meq daily. Decrease Gebapentin to 100mg TID. * This patient also complains of shortness of breath which is improved with Lasix. Continue at 40mg PO daily. * Borderline rise in cardiac troponin. I do not think this is significant or indicative of an DC. His chest discomfort is musculoskeletal. Continue telemetry? No
[2017-04-30 21:06] VITALS: BP 128/82
[2017-05-01 06:45] VITALS: BP 158/92
--- NOTE | 2017-05-01 10:55 | PN- Cardiology ---
Subjective Subjective: * No chest discomfort or shortness of breath. The patient feels a bit lightheaded. * sinus rhythm * potassium is 3.5 Objective Vital Signs and I&Os Vital Signs Date Time Temp Pulse Resp B/P B/P Pulse O2 O2 Flow FiO2 Mean Ox Delivery Rate 05/01 828 71 158/92 05/01 0545 97.8 71 18 158/92 93 Room Air 04/30 2105 92 Nasal 2.0L Cannula 04/30 2105 98.5 75 18 128/82 92 Nasal 2.0L Cannula 04/30 2101 75 128/82 04/30 1422 98.6 80 22 116/74 92 Nasal 2.0L Cannula 04/30 1253 Nasal 2.0L Cannula Intake & Output 05/01 0805/01 0000 04/30 1600 04/30 0804/30 0000 Intake Total 200 462 824 300 650 Output Total 200 400 Balance 0 462 824 300 250 Intake, IV 200 120 140 200 Intake, Oral 342 684 100 650 Output, Urine 200 400 Physical Exam: General: WD/ WN male in NAD; alert and oriented x 3 HEENT: NC/AT, PERRL, EOMI Neck: no JVD Heart: RRR with 2/6 systolic murmur Lungs: clear bilaterally Abdomen: soft, NT, +ve bowel sounds Extremities: no edema Assessment/Plan Assessment/Plan * This patient had a brief syncopal episode. I have a very low suspicion of heart block but a ventricular dysrhythmia in this patient with known coronary artery disease and a low potassium was possible. No dysrhythmias noted during this admission. His echo shows a normal EF which make a malignant ventricular dysrhythmia much less likely. There is no evidence of heart block on telemetry. His potassium is now in the normal range. The most likely cause of this event is orthostasis since it began in a sedentary patient upon becoming upright to get something to drink. This is likely exacerbated by medications that cause vasodilitation and hypotension such as Gabepentin and his narcotics as well as his beta dez. He has been needing a lot of narcotics at the [facility]. Both his Gabepentin and narcotics for pain relief need to be weaned down to the minimum tolerated. This patient did not have a vasovagal event. * Patient is stable for discharge from a cardiac standpoint. Begin Kcl 20meq daily. Decrease Gebapentin to 100mg TID. * This patient also complains of shortness of breath which is improved with Lasix. Continue at 20mg PO daily. * Borderline rise in cardiac troponin. I do not think this is significant or indicative of an AR. His chest discomfort is musculoskeletal. * Okay for discharge from a cardiac standpoint. Continue telemetry? Yes
--- NOTE | 2017-05-01 14:30 | PN- Housestaff ---
Percy HANSON,[place] 05/01/17 1430: Subjective Follow-up For: Syncope Complaints: pain in body Tele-Events Since Last Visit: GIRMA Subjective: Patient is seen and examined at the bedside. He was complaining that he is not getting adequate pain medication. According to them , he is not getting enough amount of pain medication, leading to generalized pain. Patient also does not want to go to [facility], he wanted to discuss further with case management. Review of Systems Constitutional: Reports: no symptoms. Musculoskeletal: Reports: back pain. Objective Last 24 Hrs of Vital Signs/I&O Vital Signs Date Time Temp Pulse Resp B/P B/P Pulse O2 O2 Flow FiO2 Mean Ox Delivery Rate 05/01 2055 78 112/70 05/01 2021 Nasal 2.0L Cannula 05/01 163 Nasal 2.0L Cannula 05/01 1600 Nasal 2.0L Cannula 05/01 1447 98.0 75 20 132/76 96 Nasal 2.0L Cannula 05/01 0829 71 158/92 05/01 0645 97.8 71 18 158/92 93 Room Air Intake & Output 05/01 1600 05/01 0800 05/01 0000 Intake Total 620 200 462 Output Total 200 Balance 620 0 462 Intake, IV 140 200 120 Intake, Oral 480 342 Output, Urine 200 Patient 74.928 kg Weight Physical Exam General Appearance: Alert, Oriented X3, Cooperative Cardiovascular: Normal S1, Normal S2 Lungs: Clear to Auscultation, Normal Air Movement Abdomen: Soft, No Tenderness Extremities: No Clubbing, No Cyanosis, No Edema Assessment/Plan Assessment: Mr. Vyas is a 71yo M with PMH of CAD, HTN, HLD, MR, GERD, diverticulosis, nephrolithiasis, EtOH, depression, thyroid cancer, prostate cancer, and anemia who was BIBA from [facility] after a witnessed episode of syncope. Problem List 1. Syncope 2. Severe hypokalemia 3. Macrocytic anemia 4. Acute decompensated heart failure 5. Diarrhea Syncope * Physical therapy consult * f/u cardiology recommendations * f/u neurology recommendations * Monitor electrolytes * decrased dose of pain medication as per primary team. * decreased gabapentin Acute decompensated heart failure * Furosemide 40 mg by mouth daily Diarrhea - resolved Chronic medical problems: * Continue amp/sulbactam until 05/14/17 for osteo of right foot. * continue home Lactobacillus, diclofenac, sertraline, prednisone, aspirin, metoprolol, zolpidem, pantoprazole, duloxetine, atorvastatin DVT prophylaxis with enoxaparin Heart healthy diet FC Problem List: 1. Hypokalemia 2. Syncope Pain Ratin Pain Location: generalized body Pain Goal: Remain pain free Pain Plan: pain medication as needed Tomorrow's Labs & Rationales: n/a DVT/Prophylaxis: mechanical, pharmacological, early ambulation low risk Leilani Castillo 05/01/17 1431: Attending MD Review Statement Attending Statement Attending MD Statement: examined this patient, discuss w/resident/PA/VEGETABLE FARM MANAGER, agreed w/resident/PA/VEGETABLE FARM MANAGER, discussed with family, reviewed EMR data (avail), discussed with nursing, discussed with case mgmt, reviewed images, amended to note Attending Assessment/Plan: pt seen and examined at [facility]. pt stable for discharge. d/w pts daughter and pt alongwith showcase trimmer and d/w them the dc plan. pt and daughter does not want him to go to [facility]. They want to do more research on other facilities . case management aware.
[2017-05-01 14:47] VITALS: BP 132/76
--- NOTE | 2017-05-01 22:52 | Event Note ---
Event Note Event Note: Paged by nursing staff stating that patient and his daughter is unhappy with his current pain regimen. Patient's daughter had already left prior to the discussion that took place with the patient. Discussed with the patient at length the reasoning behind decreasing opiate medications and gabapentin as they may have precipitated patient's syncopal episode leading to his current admission. Patient states that this change was not addressed with him. Patient states that he sees a bumper and painter, Dr. Cardenas who has been working with them to control his pain. Per patient she has been taking oxytocin 10 mg every 4 hours, morphine extended release 15 3 times a day, and gabapentin 600 mg 4 times a day. Patient is quite distressed by the decrease in his medications and continues to complain of pain and inability to sleep. Patient was given another 5 mg of oxycodone x 1 and Lidoderm patch. Patient was given Ambien which he has been taking during this hospitalization. Will relay patient's concerns to the day team.
[2017-05-01 23:00] VITALS: BP 112/70
[2017-05-02 06:30] VITALS: BP 140/78
--- NOTE | 2017-05-02 11:23 | PN- Housestaff ---
Mera HANSON,Kary 05/02/17 1123: Subjective Follow-up For: syncope Subjective: Patient states that he continues to be in pain, generalized Review of Systems Constitutional: Reports: see HPI. Respiratory: Reports: no symptoms. Gastrointestinal: Reports: no symptoms. Objective Last 24 Hrs of Vital Signs/I&O Vital Signs Date Time Temp Pulse Resp B/P B/P Pulse O2 O2 Flow FiO2 Mean Ox Delivery Rate 05/02 1600 93 Nasal 2.0L Cannula 05/02 1450 98.5 66 20 126/80 92 Room Air 05/02 1038 88 140/78 05/02 08 92 Nasal 2.0L Cannula 05/02 0630 98.7 88 18 140/78 90 Room Air 05/01 2300 98.1 78 16 112/70 95 Room Air 05/01 2055 78 112/70 05/01 2021 Nasal 2.0L Cannula Intake & Output 05/02 1600 05/02 0800 05/02 0000 Intake Total 500 550 200 Output Total Balance 500 550 200 Intake, IV 250 Intake, Oral 500 300 200 Physical Exam General Appearance: Alert, Oriented X3, Cooperative, Mild Distress HEENT: Atraumatic Cardiovascular: Normal S1, Normal S2, No Murmurs Lungs: Clear to Auscultation Abdomen: Normal Bowel Sounds, Soft, No Tenderness Current Medications: Current Medications Sig/Kim Start time Last Medication Dose Route Stop Time Status Admin Ampicillin Sodium/ 3,000 MG Q6 05/02 1238 AC 05/02 Sulbactam Sodium IV 1828 Sodium Chloride 100 ML Ampicillin Sodium/ 3,000 MG Q6 04/28 1200 DC 05/02 Sulbactam Sodium IV 0632 Sodium Chloride 100 ML Aspirin 81 MG DAILY 04/28 1000 AC 05/02 PO 1037 Atorvastatin Calcium 80 MG 1700 04/27 1851 AC 05/02 PO 1828 Diclofenac Sodium 1 MAIKEL 4 TIMES/DAY 04/28 1444 AC 04/29 TOP 2125 Duloxetine HCl 30 MG DAILY 04/27 2017 AC 05/02 PO 1037 Enoxaparin Sodium 40 MG DAILY@2200 04/28 2200 AC 05/01 SC 2051 Furosemide 20 MG DAILY 05/02 1000 AC 05/02 PO 1038 Gabapentin 100 MG Q8 05/01 2200 AC 05/02 PO 1458 Lactobacillus 1 CAP DAILY 04/28 1500 AC 05/01 Acidophilus PO 0828 Lidocaine 1 PAT DAILY PRN 05/01 2300 AC EXT Metoprolol Tartrate 12.5 MG BID 04/27 2200 AC 05/02 PO 1038 Morphine Sulfate 15 MG Q8 PRN 05/02 1200 AC 05/02 PO 2003 Oxycodone HCl 5 MG ONCE ONE 05/01 2300 DC 05/01 PO 05/01 2301 2314 Oxycodone HCl 5 MG Q4 HRS NEEDED PRN 04/27 1900 AC 05/02 PO 1840 Pantoprazole Sodium 40 MG DAILY 04/27 2018 AC 05/02 IV 1041 Potassium Chloride 20 MEQ DAILY 05/01 1731 AC 05/02 PO 1037 Prednisone 5 MG DAILY 04/28 1000 AC 05/02 PO 1038 Sertraline HCl 100 MG DAILY 04/28 1000 AC 05/02 PO 1038 Zolpidem Tartrate 5 MG AT BEDTIME NEED.. 04/27 2030 AC 05/01 PO 2314 Assessment/Plan Assessment: Mr. Vyas is a 71yo M with PMH of CAD, HTN, HLD, MR, GERD, diverticulosis, nephrolithiasis, EtOH, depression, thyroid cancer, prostate cancer, and anemia who was BIBA from [facility] after a witnessed episode of syncope. Problem List 1. Syncope 2. Severe hypokalemia 3. Macrocytic anemia 4. Acute decompensated heart failure 5. Diarrhea Syncope * Physical therapy consult * f/u cardiology recommendations * f/u neurology recommendations * Monitor electrolytes * Patient has been restarted on when necessary morphine 15 mg every 8 hours and we will recommend pain management outpatient * We decreased gabapentin to 100 mg 3 times a day Acute decompensated heart failure * Furosemide 40 mg by mouth daily * KCl 20 mEq daily Diarrhea - resolved Disposition * The patient does not want [facility] or [place]. Discussed with case management tomorrow Chronic medical problems: * Continue amp/sulbactam until 05/14/17 for osteo of right foot. * continue home Lactobacillus, diclofenac, sertraline, prednisone, aspirin, metoprolol, zolpidem, pantoprazole, duloxetine, atorvastatin DVT prophylaxis with enoxaparin Heart healthy diet FC Problem List: 1. Syncope 2. Hypokalemia Pain Ratin Pain Location: generalized Pain Goal: Pain 4 or less Pain Plan: Restart as needed morphine 15 mg every 8 hours Tomorrow's Labs & Rationales: CBC and BEP Jonathan,Manik 01/07/18 1401: Attending MD Review Statement Attending Statement Attending MD Statement: examined this patient, discuss w/resident/PA/HARVEST WORKER, agreed w/resident/PA/HARVEST WORKER, discussed with family, reviewed EMR data (avail), discussed with nursing, discussed with case mgmt, reviewed images, amended to note Attending Assessment/Plan: pt seen and examined at [facility]. pt stable for discharge. d/w pts daughter and pt alongwith employment evaluator/case manager and d/w them the dc plan. No new complaints except pain and requesting pain meds. pt and daughter does not want him to go to [facility]. They want to do more research on other facilities . case management aware..
--- NOTE | 2017-05-02 11:31 | PN- Cardiology ---
Subjective Subjective: * This patient and his daughter are insistent on the patient receiving more pain medication to control his pain. The patient feels that his discomfort was severe last evening. * sinus rhythm Objective Vital Signs and I&Os Vital Signs Date Time Temp Pulse Resp B/P B/P Pulse O2 O2 Flow FiO2 Mean Ox Delivery Rate 05/02 1038 88 140/78 05/02 0630 98.7 88 18 140/78 90 Room Air 05/01 2300 98.1 78 16 112/70 95 Room Air 05/016 78 112/70 05/01 2021 Nasal 2.0L Cannula 05/01 1638 Nasal 2.0L Cannula 05/01 1599 Nasal 2.0L Cannula 05/01 1447 98.0 75 20 132/76 96 Nasal 2.0L Cannula Intake & Output 05/02 0800 05/02 0000 05/01 1600 05/01 0800 05/01 0000 Intake Total 550 200 620 200 462 Output Total 200 Balance 550 200 620 0 462 Intake, IV 250 140 200 120 Intake, Oral 300 200 480 342 Output, Urine 200 Patient 165 lb Weight Physical Exam: General: WD/ WN male in NAD; alert and oriented x 3 HEENT: NC/AT, PERRL, EOMI Neck: no JVD Heart: RRR with 2/6 systolic murmur Lungs: clear bilaterally Abdomen: soft, NT, +ve bowel sounds Extremities: no edema Assessment/Plan Assessment/Plan * This patient had a brief syncopal episode. I have a very low suspicion of heart block but a ventricular dysrhythmia in this patient with known coronary artery disease and a low potassium was possible. No dysrhythmias noted during this admission. His echo shows a normal EF which make a malignant ventricular dysrhythmia much less likely. There is no evidence of heart block on telemetry. His potassium is now in the normal range. The most likely cause of this event is orthostasis since it began in a sedentary patient upon becoming upright to get something to drink. This is likely exacerbated by medications that cause vasodilitation and hypotension such as Gabepentin and his narcotics as well as his beta dez. He has been needing a lot of narcotics at the [facility]. Both his Gabepentin and narcotics for pain relief need to be weaned down to the minimum tolerated. This has been tried to only modest effect and the patient feels that he needs more medication.This patient did not have a vasovagal event. Restart PRN morphine 15mg Q8hrs. Obtain a pain management consult. * Patient is stable for discharge from a cardiac standpoint. Begin Kcl 20meq daily. Decrease Gebapentin to 100mg TID. * This patient also complains of shortness of breath which is improved with Lasix. Continue at 20mg PO daily. * Borderline rise in cardiac troponin. I do not think this is significant or indicative of an ME. His chest discomfort is musculoskeletal. * Okay for discharge from a cardiac standpoint. Continue telemetry? No
[2017-05-02 14:50] VITALS: BP 126/80
[2017-05-02 22:19] VITALS: BP 102/64
[2017-05-03 06:34] VITALS: BP 140/88
[2017-05-03 08:02] LABS: ABSOLUTE BASOPHIL COUNT 0 /CUMM (0.0-0.2); ABSOLUTE EOSINOPHIL COUNT 0.1 /CUMM (0.0-0.7); ABSOLUTE GRANULOCYTE CT 3.2 /CUMM (1.4-6.5); ABSOLUTE LYMPH COUNT 1.6 /CUMM (1.2-3.4); ABSOLUTE MONOCYTE COUNT 0.7 /CUMM (0.10-0.60); BASOPHIL % 0.8 % (0.0-2.0); EOSINOPHIL % 2.1 % (0-5); GRANULOCYTE % 56.7 % (42.2-75.2); HEMATOCRIT 30.1 % (42-52); MEAN CORPUSCULAR HGB CONC 32.5 G/DL (33.0-37.0); MEAN CORPUSCULAR VOLUME 98.6 FL (80.0-94.0); MEAN PLATELET VOLUME 8.4 FL (7.4-10.4); PLATELET COUNT 225 /CUMM (130-400); RBC DISTRIBUTION WIDTH 17.6 % (11.5-14.5); RED BLOOD CELL CT 3.06 /CUMM (4.70-6.10); WHITE BLOOD CELL COUNT 5.6 /CUMM (4.8-10.8)
--- NOTE | 2017-05-03 08:35 | PN- Housestaff ---
See Addendum Subjective Follow-up For: Syncope, Tele-Events Since Last Visit: Not on tele Subjective: No overnight events. Patient is complaining of pain, 8/10 in ribs and back. Also hacing some abd pain and SOB. He is skeptical of getting a pain management consult as Dr. Stein has suggested, doesn't want to mess with his regimen. Review of Systems Constitutional: Reports: no symptoms. EENTM: Reports: no symptoms. Cardiovascular: Reports: see HPI. Respiratory: Reports: see HPI. Gastrointestinal: Reports: no symptoms. Genitourinary: Reports: no symptoms. Musculoskeletal: Reports: see HPI. Skin: Reports: no symptoms. Neurological/Psychological: Reports: no symptoms. Hematologic/Endocrine: Reports: no symptoms. Immunologic/Allergic: Reports: no symptoms. Objective Last 24 Hrs of Vital Signs/I&O Vital Signs Date Time Temp Pulse Resp B/P B/P Pulse O2 O2 Flow FiO2 Mean Ox Delivery Rate 05/03 0634 98.1 68 20 140/88 92 Room Air 05/02 2229 76 102/64 05/02 2219 98.6 76 20 102/64 92 Room Air 05/02 2146 Nasal 2.0L Cannula 05/02 1600 93 Nasal 2.0L Cannula 05/02 1450 98.5 66 20 126/80 92 Room Air 05/02 1038 88 140/78 Intake & Output 05/03 1600 05/03 0800 05/03 0000 Intake Total 580 200 Output Total Balance 580 200 Intake, IV 100 Intake, Oral 480 200 Physical Exam General Appearance: Alert, Oriented X3, Cooperative, No Acute Distress Cardiovascular: Regular Rate, Normal S1, Normal S2, chest wall tender to palpation Lungs: Clear to Auscultation Abdomen: Normal Bowel Sounds, Soft, mildly tender to palpation Neurological: Normal Speech Extremities: No Edema, Normal Pulses, No Tenderness/Swelling Current Medications: Current Medications Sig/Kim Start time Last Medication Dose Route Stop Time Status Admin Ampicillin Sodium/ 3,000 MG Q6 05/02 1238 AC 05/03 Sulbactam Sodium IV 0655 Sodium Chloride 100 ML Ampicillin Sodium/ 3,000 MG Q6 04/28 1200 DC 05/02 Sulbactam Sodium IV 0632 Sodium Chloride 100 ML Aspirin 81 MG DAILY 04/28 1000 AC 05/02 PO 1037 Atorvastatin Calcium 80 MG 1700 04/27 1851 AC 05/02 PO 1828 Diclofenac Sodium 1 MAIKEL 4 TIMES/DAY 04/28 1444 AC 04/29 TOP 2125 Duloxetine HCl 30 MG DAILY 04/27 2016 AC 05/02 PO 1037 Enoxaparin Sodium 40 MG DAILY@2200 04/28 2200 AC 05/02 SC 2230 Furosemide 20 MG DAILY 05/02 1000 AC 05/02 PO 1038 Gabapentin 100 MG Q8 05/01 2200 AC 05/03 PO 0655 Lactobacillus 1 CAP DAILY 04/28 1500 AC 05/01 Acidophilus PO 0828 Lidocaine 1 PAT DAILY PRN 05/01 2300 AC EXT Metoprolol Tartrate 12.5 MG BID 04/27 220 AC 05/02 PO 2229 Morphine Sulfate 15 MG Q8 PRN 05/02 1200 AC 05/03 PO 0655 Oxycodone HCl 5 MG Q4 HRS NEEDED PRN 04/27 1900 AC 05/02 PO 2230 Pantoprazole Sodium 40 MG DAILY 04/27 2017 AC 05/02 IV 1041 Potassium Chloride 20 MEQ DAILY 05/01 1731 AC 05/02 PO 1037 Prednisone 5 MG DAILY 04/28 1000 AC 05/02 PO 1038 Sertraline HCl 100 MG DAILY 04/28 1000 AC 05/02 PO 1038 Zolpidem Tartrate 5 MG AT BEDTIME NEED.. 04/27 2030 AC 05/02 PO 2230 Last 24 Hrs of Lab/Antwan Results Last 24 Hrs of Labs/Mics: Laboratory Tests 05/03/17 0640: Anion Gap 11, Estimated GFR > 60, BUN/Creatinine Ratio 17.8, CBC w Diff NO MAN DIFF REQ, RBC 3.06 L, MCV 98.6 H, MCH 32.0 H, RDW 17.6 H, MPV 8.4, Gran % 56.7, Lymphocytes % 28.2, Monocytes % 12.2 H, Eosinophils % 2.1, Basophils % 0.8, Absolute Granulocytes 3.2, Absolute Lymphocytes 1.6, Absolute Monocytes 0.7 H, Absolute Eosinophils 0.1, Absolute Basophils 0, PUBS MCHC 32.5 L Assessment/Plan Assessment: Mr. Vyas is a 71yo M with PMH of CAD, HTN, HLD, MR, GERD, diverticulosis, nephrolithiasis, EtOH, depression, thyroid cancer, prostate cancer, and anemia who was BIBA from [facility] after a witnessed episode of syncope. Problem List 1. Syncope 2. Severe hypokalemia 3. Macrocytic anemia 4. Acute decompensated heart failure 5. Diarrhea #Syncope: History of this syncopal episode is unclear. There are reports that it may have been a cardiac arrest and he did receive several rounds of CPR though there are also reports that he just passed out. Cardiology seems to think there is a low suspicion of heart block. Ventricular dysrhythmia secondary to electrolyte abnormalities is possible. EEG was normal but this does not rule out seizure. He does not have any history of seizures though. Other possible cause of his syncope is opiates. His urine tox was positive for opiates but this is a prescribed medication. it is possible that he overdosed. Orthostatic vitals negative. TTE revealed EF 55%, restrictive hemodynamics, and RV pressure 55 mmHg at this point, he has been medically stable for discharge but is refusing to leave. -Physical therapy consult -Appreciate cardiology recommendations -Appreciate neurology recommendations -Monitor electrolytes -Minimize opioids to control pain -Tapering gabapentin -pain management consult #Acute decompensated heart failure: There is likely an element of CHF given increased BNP and pulmonary vascular congestion on x-ray. -Furosemide 40 mg by mouth daily #Diarrhea: Has had recent antibiotic use. However he has not had further episodes of diarrhea in the hospital. -Culture stool if further diarrhea #Chronic medical problems: -Continue amp/sulbactam until 05/14/17 for osteo of right foot. -continue home Lactobacillus, diclofenac, sertraline, prednisone, aspirin, metoprolol, zolpidem, pantoprazole, duloxetine, atorvastatin DVT prophylaxis with enoxaparin Heart healthy diet FC Problem List: 1. Syncope Pain Ratin Pain Location: ribs, back Pain Goal: Remain pain free Pain Plan: see a/p Tomorrow's Labs & Rationales: none
[2017-05-03 09:33] VITALS: BP 136/90
[2017-05-03 11:13] VITALS: BP 136/90
--- NOTE | 2017-05-03 12:04 | RADIOLOGY REPORT ---
EXAMINATION: XR WRIST, LEFT CLINICAL INFORMATION: Fracture pain tenderness COMPARISON: None TECHNIQUE: There are 4 views of the left wrist. FINDINGS: There is severe arthrosis of the radiocarpal and ulnocarpal compartment. There is severe joint space narrowing subchondral sclerosis and subchondral cystic change. There is moderate arthrosis of the distal radioulnar joint. There is mild arthrosis of the first carpometacarpal joint. There is slight deformity the distal radius perhaps related to old fracture. IMPRESSION: Severe arthrosis of the wrist. Possible old distal radius fracture resulting in some residual deformity
[2017-05-03] MEDS ORDERED: FUROSEMIDE20 M1 PO (13:28)
[2017-05-03] MEDS ORDERED: GABAPENTIN100 M2 PO (13:28)
--- NOTE | 2017-05-03 13:30 | Patient Discharge Instructions ---
Discharge Instructions General Discharge Information You were seen/treated for: Syncope Watch for these problems: Chest pain, fever, shortness of breath Special Instructions: Please take all medications as instructed. Please follow-up with orthopedics for your arthrosis. Please follow-up with your PCP as well. Diet Continue normal diet: No Recommended Diet: Heart Healthy Activity Full Activity/No Limits: Yes Acute Coronary Syndrome Inclusion Criteria At DC or during hospital stay patient has or had the following: ACS DIAGNOSIS No Discharge Core Measures Meds if any: Prescribed or Continued at Discharge Meds if any: NOT Prescribed or Continued at Discharge Congestive Heart Failure Inclusion Criteria At DC or during hospital stay patient has or had the following: CHF DIAGNOSIS Yes Discharge Core Measures Meds if any: Prescribed or Continued at Discharge Meds if any: NOT Prescribed or Continued at Discharge Cerebrovascular accident Inclusion Criteria At DC or during hospital stay patient has or had the following: CVA/TIA Diagnosis No Discharge Core Measures Meds if any: Prescribed or Continued at Discharge Meds if any: NOT Prescribed or Continued at Discharge Venous thromboembolism Inclusion Criteria VTE Diagnosis No VTE Type NONE VTE Confirmed by (Test) NONE Discharge Core Measures - Per Current guidelines, there needs to be overlap - treatment for the first 5 days of Warfarin therapy. - If discharged on Warfarin prior to 5 days of - overlap therapy, the patient will need to be - assessed for post discharge needs including - *Post discharge parental anticoagulation - *Warfarin and/or parental anticoagulation education - *Follow up date to check INR post discharge At least 5 days overlap therapy as Inpatient No Meds if any: Prescribed or Continued at Discharge Note: Overlap Therapy is Warfarin and Anticoagulant Meds if any: NOT Prescribed or Continued at Discharge
--- NOTE | 2017-05-03 13:58 | Event Note ---
Event Note Event Note: Patient has chronic back pain for which he is on morphine sulfate immediate release 15 mg every 8 as required and oxycodone 10 mg every 4 as required. Off note pain medications were weaned off when he was admitted to [facility] after syncope. However patient wants pain medications at the time of discharge, no matter how much we explained him and his family about the risks of pain medication like falls, opiate overdose, risk of . Irrespective of explaining all the side effects of pain medications patient opted to take them and he is very adamant about them. His daughter was notified about all his pain medication risks. * He was discharged on morphine sulfate 15 mg every 8 as required and oxycodone 5 mg every 4 as required. * Daughter was aware.
[2017-05-03 14:52] VITALS: BP 136/88
[2017-05-03] MEDS ORDERED: PREDNISONE2.5 M1 PO (14:59)
--- NOTE | 2017-05-03 15:03 | Event Note ---
Event Note Event Note: CTPMP was checked. Patient was on extended release morphine 15 mg every 8 as needed and oxycodone 10 mg every 4 as needed. We are going to continue the same and advised him to follow up with his pain management doctor . Daughter at bedside she wants all the home medications back at the time of discharge. Discussed in detail about risks. Patient and his daughter were aware. Also increased prednisone from 5-7.5 for rheumatoid arthritis
[2017-05-03] MEDS ORDERED: VOLTAREN100 GM TOP (15:16)
== END 2017-05-03 15:34 | DRG 291 ==
LOC: ERH 14:56 → CRI 17:51 → ERHI 17:51 → EDBEDREQ 20:18 → ERHI 20:20 → ENRESERV 04-28 04:07 → CRI 04-28 04:55 → ENTRNSPT 04-28 19:12 → EDTRNSPT 04-28 19:55 → EDTRNSPTSTS 04-28 19:55 → 1NO 04-28 20:06 → CMPTRNSPT 04-28 20:13 → 1NO 04-29 08:17 → ENPENDDIS 05-03 13:30 → ENTRNSPT 05-03 15:09 → CMPTRNSPT 05-03 15:21 → 1NO 05-03 15:34
PROVIDERS: Internal Medicine; Physician Assistant Medical; Student in an Organized Health Care Education/Training Program
DX: I50.33 Acute on chronic diastolic (congestive) heart failure (principal); I46.9 Cardiac arrest, cause unspecified; G62.9 Polyneuropathy, unspecified; M86.171 Other acute osteomyelitis, right ankle and foot; I95.2 Hypotension due to drugs; I11.0 Hypertensive heart disease with heart failure; E87.6 Hypokalemia; F10.20 Alcohol dependence, uncomplicated; D64.9 Anemia, unspecified; I25.10 Atherosclerotic heart disease of native coronary artery without angina pectoris; E78.5 Hyperlipidemia, unspecified; K21.9 Gastro-esophageal reflux disease without esophagitis; K57.90 Diverticulosis of intestine, part unspecified, without perforation or abscess without bleeding; Z87.442 Personal history of urinary calculi; F32.9 Major depressive disorder, single episode, unspecified; Z85.850 Personal history of malignant neoplasm of thyroid; Z85.46 Personal history of malignant neoplasm of prostate; T40.2X5A Adverse effect of other opioids, initial encounter; T42.6X5A Adverse effect of other antiepileptic and sedative-hypnotic drugs, initial encounter; Y92.10 Unspecified residential institution as the place of occurrence of the external cause
CPT/HCPCS: 1NSP; ERO; 36415; 71045; 71046; 73110-LT; 80307; 81003; 82436; 87045; 93005; 93010; 93306; 95816; 96365; 96375; 97110-GO; 97116-GO; 97161-GP; 97530-GO; J1650; J1940; J2270; J3490; J7512

== ENCOUNTER 2017-07-14 23:46 | Inpatient (IN) | payer OTHER, MEDICARE ==
[~2017-07-14] VITALS: Ht 172.7 cm; Wt 72.6 kg
[~2017-07-14 23:46] MED LIST changes: +FUROSEMIDE20 M1 PO; +GABAPENTIN100 M2 PO; +PREDNISONE2.5 M1 PO; +VOLTAREN100 GM TOP; +WELLBUTRIN XL300 M2 PO
[2017-07-15] VITALS (11 sets, daily range): BP systolic 80–128; BP diastolic 48–78
--- NOTE | 2017-07-15 00:11 | ED MVC/FALL/TRAUMA COMPLAINT ---
History of Present Illness General Chief Complaint: Hip Injury Stated Complaint: BIBA, FALL, RIGHT HIP PAIN Source: patient, old records, EMS Exam Limitations: no limitations Vital Signs & Intake/Output Vital Signs & Intake/Output Vital Signs Date Time Temp Pulse Resp B/P B/P Pulse O2 O2 Flow FiO2 Mean Ox Delivery Rate 07/15 0154 78 18 112/61 96 Room Air 07/14 2347 96.8 82 20 167/93 94 Room Air ED Intake and Output 07/15 0000 07/14 1200 Intake Total 0 Output Total Balance 0 Intake, Oral 0 Patient 160 lb Weight Allergies Coded Allergies: No Known Allergies (03/05/17) Reconcile Medications Atorvastatin Calcium (Lipitor) 80 MG TABLET 1 TAB PO DAILY hld (Reported) Bupropion HCl (Wellbutrin XL) 300 MG TAB.ER.24H 1 TAB PO DAILY MENTAL HEALTH (Reported) Cyanocobalamin (Vitamin B-12) 1,000 MCG TABLET 1 TAB PO DAILY VITAMIN SUPPORT (Reported) Diclofenac Sodium (Voltaren) 1 % GEL..GRAM. 1 MAIKEL TOP 4 TIMES/DAY PRN Pain Duloxetine Hydrochloride (Cymbalta) 30 MG CAPSULE.DR 1 CAP PO DAILY nerve pain (Reported) Ferrous Sulfate 325 MG (65 MG IRON) TABLET 1 TAB PO BID SUPPLEMENT (Reported) Folic Acid 1 MG TABLET 1 MG PO DAILY Vitamin Gabapentin 600 MG TABLET 1 TAB PO Q6H PRN NERVE PAIN (Reported) Hydroxychloroquine Sulfate 200 MG TABLET 1 TAB PO BID Rheumatoid Arthritis ( Reported) Metoprolol Tartrate 25 MG TABLET 1 TAB PO DAILY HEART/BP (Reported) Morphine Sulfate 15 MG TABLET 1 TAB PO Q12H PAIN (Reported) Oxycodone HCl 10 MG TABLET 1 TAB PO Q4 HRS NEEDED PRN PAIN (Reported) Pantoprazole Sodium (Protonix) 40 MG TABLET.DR 1 TAB PO PRN GI (Reported) Prednisone 5 MG TABLET 1.5 TAB PO DAILY RA (Reported) Sertraline HCl (Zoloft) 100 MG TABLET 1 TAB PO DAILY MENTAL HEALTH (Reported) Sulfamethoxazole/Trimethoprim (Bactrim Ds Tablet) 800 MG-160 MG TABLET 1 TAB PO BID cellulitis Zolpidem Tartrate (Ambien) 5 MG TABLET 1 TAB PO QPMP PRN INSOMNIA (Reported) Triage Note: PT BIBA FROM HOME S/P FALL. PT WAS BENDING DOWN TO PET HIS CAT AND FELL FORWARD HITTING HIS HEAD ON THE WALL AND LANDING ON R HIP. PT C/O R HIP PAIN. PT REPORTS HX OF REPLACEMENT "YEARS AGO". PER EMS PT WAS ABLE TO GET HIMSELF UP OFF THE FLOOR AND STAND WITHOUT ASSISTANCE. NO BLOOD THINNERS. DENIES HEAD PAIN. RLE APPEARS SHORTENED, NO ROTATION PRESENT. Triage Nurses Notes Reviewed? yes Onset: Just prior to arrival Duration: minute(s):, constant, continues in ED Timing: recent history Severity: moderate, severe Injuries/Fall Location: head, pelvis, lower extremity Method of Injury: fall Loss of Consciousness: no loss of consciousness Modifying Factors: Worsens With: movement, palpation. Associated Symptoms: trouble walking HPI: 1 day prior to admission patient complains of balance difficulty requiring holding onto stationary objects to get around. Prior to admission he loss his balance and fell onto his right hip. He complains of sharp severe pain limited range of motion nonradiating worse with movement turning bending constant. He also recalls striking his head on the wall as he fell to the ground. He denies fever chills nausea vomiting diarrhea abdominal pain chest pain shortness of breath headache dysuria rash bleeding. Past History Travel History Traveled to [place] past 21 day No Medical History Any Pertinent Medical History? 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 FH: prostate cancer MOTHER (smoker). , Age 77; Cause: COPD (chronic obstructive pulmonary disease). Hx Contributory? No Review of Systems Review of Systems Constitutional: Reports: no symptoms. Eyes: Reports: no symptoms. Ears, Nose, Throat, Mouth: Reports: no symptoms. Respiratory: Reports: no symptoms. Cardiovascular: Reports: no symptoms. Gastrointestinal/Abdominal: Reports: no symptoms. Genitourinary: Reports: no symptoms. Musculoskeletal: Reports: see HPI, joint pain. Skin: Reports: no symptoms. Neurological/Psychological: Reports: see HPI, other (balance difficulty). All Other Systems: Reviewed and Negative Physical Exam Physical Exam General Appearance: well developed/nourished, alert, awake, anxious, moderate distress, severe distress Head: atraumatic, normal appearance Eyes: Bilateral: normal appearance, PERRL, EOMI, normal inspection. Ears, Nose, Throat, Mouth: hearing grossly normal, moist mucous membrane Neck: normal inspection, supple, full range of motion, normal alignment Respiratory: normal breath sounds, chest non-tender, no respiratory distress, quiet respiration, lungs clear Cardiovascular: regular rate/rhythm, normal peripheral pulses, norml femoral pulses equa Peripheral Pulses: 4+ carotid (R), 4+ carotid (L) Gastrointestinal: normal bowel sounds, soft, non-tender, no organomegaly Back: normal inspection, no vertebral tenderness Extremities: bony-point tenderness, limited range of motion, straight leg raised , tenderness Neurologic/Psych: no motor/sensory deficits, awake, alert, oriented x 3, normal mood/affect, 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 No CVA/TIA Diagnosis No Sepsis Present: No Sepsis Focused Exam Completed? No Progress Differential Diagnosis: ext injury, pelvis injury Plan of Care: Orders Procedure Date/time Status Regular Diet 07/15 B Active Patient Data 07/15 0158 Active OXYGEN SETUP (GEN) 07/15 113 Active Saline Lock 07/15 113 Active Admit to inpatient 07/15 113 Active Vital Signs 07/15 113 Active Activity/Ambulation 07/15 113 Active Code Status 07/15 113 Active B-TYPE NATRIURETIC PEP (BNP) 07/15 0013 Complete TROPONIN LEVEL 07/16 3 Complete PROTHROMBIN TIME 07/16 3 Complete MAGNESIUM 07/16 3 Complete COMPREHENSIVE METABOLIC PANEL 07/16 3 Complete CBC WITHOUT DIFFERENTIAL 07/16 3 Complete EKG 07/16 3 Active Laboratory Tests 07/15/17 0013: Anion Gap 19 H, Estimated GFR > 60, BUN/Creatinine Ratio 18.8, Glucose 68, Calcium 9.4, Magnesium 1.5 L, Total Bilirubin 0.7, AST 30, ALT 20 L, Alkaline Phosphatase 116, Troponin I < 0.01, Gtb-D-Hdfbjichipe Pept 2160 H, Total Protein 7.0, Albumin 4.2, Globulin 2.8, Albumin/Globulin Ratio 1.5, PT 10.8, INR 0.99, CBC w Diff NO MAN DIFF REQ, RBC 3.28 L, MCV 99.3 H, MCH 33.2 H, MCHC 33.4, RDW 21.9 H, MPV 7.9, Gran % 77.6 H, Lymphocytes % 12.9 L, Monocytes % 7.9, Eosinophils % 1.4, Basophils % 0.2, Absolute Granulocytes 3.0, Absolute Lymphocytes 0.5 L, Absolute Monocytes 0.3, Absolute Eosinophils 0.1, Absolute Basophils 0 07/15/17 0006: Zmy-W-Atajuxikuvg Pept Cancelled Diagnostic Imaging: Viewed by Me: Radiology Read. Discussed w/RAD: Radiology Read. Radiology Impression: fracture (mildly displace g trochanter) CXR Impression: no acute abnormality Initial ED EKG: normal axis, normal intervals, normal p-waves, normal QRS complex, normal sinus rhythm, no ST T wave changes Prior EKG: unchanged Rhythm Strip: normal sinus rhythm Departure Departure Disposition: STILL A PATIENT Condition: Stable Clinical Impression Primary Impression: Fracture of greater trochanter Secondary Impressions: Fall at home Referrals: Shania HANSON,Yasmin Benítez (PCP/Family) Departure Forms: Customer Survey General Discharge Information Admission Note Spoke With: Fidencio Hanna MD Documentation of Exam: Documentation of any treatments & extenuating circumstances including Concerns Regarding Discharge (functional status, medication knowledge or non-compliance, living conditions, etc.) that warrant an admission rather than observation: Bedrest analgesia medication adjustment physical therapy orthopedic evaluation continuing care discharge planning
[2017-07-15 00:27] LABS: ABSOLUTE BASOPHIL COUNT 0 /CUMM (0.0-0.2); ABSOLUTE EOSINOPHIL COUNT 0.1 /CUMM (0.0-0.7); ABSOLUTE LYMPH COUNT 0.5 /CUMM (1.2-3.4); ABSOLUTE MONOCYTE COUNT 0.3 /CUMM (0.10-0.60); BASOPHIL % 0.2 % (0.0-2.0); EOSINOPHIL % 1.4 % (0-5); GRANULOCYTE % 77.6 % (42.2-75.2); HEMATOCRIT 32.6 % (42-52); MEAN CORPUSCULAR HGB 33.2 PG (27.0-31.0); MEAN CORPUSCULAR HGB CONC 33.4 G/DL (33.0-37.0); MEAN CORPUSCULAR VOLUME 99.3 FL (80.0-94.0); MEAN PLATELET VOLUME 7.9 FL (7.4-10.4); PLATELET COUNT 134 /CUMM (130-400); RBC DISTRIBUTION WIDTH 21.9 % (11.5-14.5); RED BLOOD CELL CT 3.28 /CUMM (4.70-6.10); WHITE BLOOD CELL COUNT 3.9 /CUMM (4.8-10.8)
[2017-07-15 00:29] LABS: PT 10.8 SEC (9.4-12.5)
--- NOTE | 2017-07-15 00:57 | RADIOLOGY REPORT ---
EXAMINATION:\H\ \N\XR CHEST CLINICAL INFORMATION: Weakness. Fall. COMPARISON: Chest x-ray 04/28/2017 TECHNIQUE: Frontal view of the chest was obtained. 12:31 AM FINDINGS: Status post median sternotomy. There is no acute abnormality. There is no pulmonary vascular congestion. No infiltrate or pleural effusion. No pneumothorax. There are multiple bilateral healed rib fractures. IMPRESSION: No acute abnormality of the chest.
--- NOTE | 2017-07-15 01:00 | RADIOLOGY REPORT ---
EXAMINATION: XR HIP, RIGHT CLINICAL INFORMATION: Fall. Hip pain. COMPARISON: None TECHNIQUE: Two views of the right hip. FINDINGS: Status post right total hip replacement. Orthopedic components in position without dislocation. There is a mildly displaced fracture through the base of the greater trochanter at the lateral side of the proximal femur. Surgical clips are seen over the symphysis pubis. IMPRESSION: Mildly displaced fracture of the greater trochanter. Status post right hip replacement.
--- NOTE | 2017-07-15 01:02 | CT SCAN REPORT ---
EXAMINATION: CT HEAD WITHOUT CONTRAST CLINICAL INFORMATION: Head strike. Fall. COMPARISON: CT head 04/27/2017 TECHNIQUE: Contiguous axial imaging was performed from the skull base to vertex without intravenous administration of contrast. DLP: 687.25 mGy-cm FINDINGS: There is no evidence of acute intracranial hemorrhage or territorial infarction. No abnormal mass effect or midline shift is seen. Fung to white matter differentiation is well preserved. No extra-axial fluid collections are identified. There is atrophy with prominence of the ventricles and the sulci and hypodensity of the periventricular white matter due to chronic small vessel ischemic disease. There is vascular calcifications of the internal carotid arteries and vertebral arteries bilaterally. The osseous structures and soft tissues are normal. The mastoid air cells and visualized portions of the paranasal sinuses are well aerated. IMPRESSION: No acute intracranial pathology.
--- NOTE | 2017-07-15 03:55 | History & Physical ---
MelvinButtonwillow 07/15/17 0338: General Information and HPI MD Statement: I have seen and personally examined LENNOX MCINTOSH and documented this H&P. The patient is a 72 year old M who presented with a patient stated chief complaint of fall and having right hip pain []. Source of Information: patient, old records Exam Limitations: no limitations History of Present Illness: 72 YO M ex-smoker with PMH CAD s/p CABG, HTN, pulmonary hypertension, GERD, diverticulosis, nephrolithiasis, depression, peripheral neuropathy, rheumatoid arthritis on prednisone and plaquenil, avascular necrosis s/p bilateral hip replacements, prostate and thyroid cancer, chronic nonhealing ulcer of right foot s/p partial third toe amputation and second toe amputation of right foot for osteomyelitis (OR cultures growing MSSA) brought to ED by ambulance with chief complaint of right hip pain after fall. Patient reported that he was in his usual state of health this afternoon, he was walking in his kitchen holding the counter and all of a sudden his creatinine did the kitchen. He bent down to pet cat but he couldn't keep his balance and fell down. Patient reported that he tried to grab the counter to prevent the fall but he couldn't and he hit the right side of his hip to wall and the floor. According to patient he noted sudden onset of pain in right hip, sharp, 10/10, aggravated with movement and not relieved rest. Nobody was around him when he fell down. Patient reported that her and daughter were at home and they helped him. Patient also has history of drinking alcohol every day. Patient denied any chest pain, short of breath, nausea, vomiting, palpitation, loss of consciousness, trauma to head, diarrhea, constipation, cough, fever, chills, abdominal pain dysuria. Patient reported that for last couple of days his gait is unsteady and he mentioned that at home he is not using any walker or cane to walk around but pending goes out and then he uses walker. Last and patient was admitted in April 2017 with chief complaint of unresponsive episode at [facility]. Patient was treated as syncopal episode/cardiac arrest. His last echocardiogram was done 2017 with ejection fraction 55% with diastolic filling pattern shows restrictive hemodynamics. Pulmonary artery systolic pressure is 55 mmHg with moderate pulmonary hypertension. ED course: Vitals: Temperature 96.8, pulse 82, respiratory 20, blood pressure 167/93, oxygen saturation 94% on room air Labs: WBC count 3.9, hemoglobin 10.9, hematocrit 32.6, platelet count 134, sodium 136, potassium 4.2, BUN 15, creatinine 0.8, anion gap 19, BUN/creatinine ratio 18.8, glucose 68, calcium 9.4, magnesium 1.5, ALT 20, AST 30, alkaline phosphatase 116, troponin less than 0.01, proBNP 2160, albumin 4.0, globulin 2.8 , albumin/globulin ratio 1.5, PT 10.8, INR 0.99 Allergies/Medications Allergies: Coded Allergies: No Known Allergies (03/05/17) Home Med list Atorvastatin Calcium (Lipitor) 80 MG TABLET 1 TAB PO DAILY hld (Reported) Bupropion HCl (Wellbutrin XL) 300 MG TAB.ER.24H 1 TAB PO DAILY MENTAL HEALTH (Reported) Cyanocobalamin (Vitamin B-12) 1,000 MCG TABLET 1 TAB PO DAILY VITAMIN SUPPORT (Reported) Diclofenac Sodium (Voltaren) 1 % GEL..GRAM. 1 MAIKEL TOP 4 TIMES/DAY PRN Pain Duloxetine Hydrochloride (Cymbalta) 30 MG CAPSULE.DR 1 CAP PO DAILY nerve pain (Reported) Ferrous Sulfate 325 MG (65 MG IRON) TABLET 1 TAB PO BID SUPPLEMENT (Reported) Folic Acid 1 MG TABLET 1 MG PO DAILY Vitamin Gabapentin 600 MG TABLET 1 TAB PO Q6H PRN NERVE PAIN (Reported) Hydroxychloroquine Sulfate 200 MG TABLET 1 TAB PO BID Rheumatoid Arthritis ( Reported) Metoprolol Tartrate 25 MG TABLET 1 TAB PO DAILY HEART/BP (Reported) Morphine Sulfate 15 MG TABLET 1 TAB PO Q12H PAIN (Reported) Oxycodone HCl 10 MG TABLET 1 TAB PO Q4 HRS NEEDED PRN PAIN (Reported) Pantoprazole Sodium (Protonix) 40 MG TABLET.DR 1 TAB PO PRN GI (Reported) Prednisone 5 MG TABLET 1.5 TAB PO DAILY RA (Reported) Sertraline HCl (Zoloft) 100 MG TABLET 1 TAB PO DAILY MENTAL HEALTH (Reported) Sulfamethoxazole/Trimethoprim (Bactrim Ds Tablet) 800 MG-160 MG TABLET 1 TAB PO BID cellulitis Zolpidem Tartrate (Ambien) 5 MG TABLET 1 TAB PO QPMP PRN INSOMNIA (Reported) Past History Travel History Traveled to [place] past 21 day No Medical History Neurological: NONE EENT: NONE Cardiovascular: CAD, hypertension, hyperlipidemia, mitral regurgitation Respiratory: NONE Gastrointestinal: GERD, hiatal hernia, umbilical hernia, diverticulosis coli hx colon TA/TVA Hepatic: NONE Renal: nephrolithiasis Musculoskeletal: chronic back pain, degen joint disease, falls, osteoarthritis, rheumatoid arthritis, hx osteo R foot Psychiatric: alcohol dependence (prev EtOH abuse), depression Endocrine: thyroid Ca Blood Disorders: anemia, B12 deficiency hx Fe def Cancer(s): prostate cancer, thyroid cancer DIGITAL MEDIA COORDINATOR/Reproductive: NONE History of MRSA: No History of VRE: No History of CDIFF: No Surgical History Surgical History: appendectomy, CABG (x3), cataract removal, hip replacement ( bilateral), prostatectomy Past Family/Social History Family History Relations & Conditions if any FATHER, , Age 81. FH: prostate cancer MOTHER (smoker). , Age 77; Cause: COPD (chronic obstructive pulmonary disease). Psychosocial History Who Do You Live With? spouse, child Services at Home: None Primary Language: Serbian Living Will? no Power of Process Engineering Manager/HCP? no Functional Ability ADLs Independent: dressing, eating, toileting, bathing. Ambulation: independent, cane IADLs Independent: shopping, housework, finances, food prep, telephone, transportation , medication admin. Review of Systems Review of Systems Constitutional: Reports: no symptoms. EENTM: Reports: no symptoms. Cardiovascular: Reports: no symptoms. Respiratory: Reports: no symptoms. GI: Reports: no symptoms. Genitourinary: Reports: no symptoms. Musculoskeletal: Reports: joint pain. Skin: Reports: see HPI. Neurological/Psychological: Reports: no symptoms. Hematologic/Endocrine: Reports: no symptoms. Exam & Diagnostic Data Last 24 Hrs of Vital Signs/I&O Vital Signs Date Time Temp Pulse Resp B/P B/P Pulse O2 O2 Flow FiO2 Mean Ox Delivery Rate 07/15 0332 90 20 120/64 94 Room Air 07/15 0303 97.1 89 18 126/78 94 Room Air 07/15 0154 78 18 112/61 96 Room Air 07/14 2347 96.8 82 20 167/93 94 Room Air Intake & Output 07/15 0800 07/15 0000 07/14 1600 Intake Total 0 Output Total Balance 0 Intake, Oral 0 Patient 160 lb Weight Physical Exam General Appearance Alert, Oriented X3, Cooperative, No Acute Distress Skin laceration on left forearm Skin Temp/Moisture Exam: Warm/Dry Sepsis Skin Exam (color): Normal for Ethnicity HEENT Atraumatic, PERRLA, EOMI Neck Supple Cardiovascular Normal S1, Normal S2 Lungs Clear to Auscultation, Normal Air Movement Abdomen Soft, No Tenderness, paraumbilical hernia Neurological Normal Speech, Normal Tone Extremities B/L PEDAL EDEMA WITH CHRONIC VENOUS INSUFFICINCY, RIGHT FOOT 2ND TOE AMPUATION AND 3RD PARTIAL AMPUTATED WITH WOUND ON IT., BRUISES ON LEFT ARM Assessment/Plan Assessment: 72 YO M ex-smoker with PMH CAD s/p CABG, HTN, pulmonary hypertension, GERD, diverticulosis, nephrolithiasis, depression, peripheral neuropathy, rheumatoid arthritis on prednisone and plaquenil, avascular necrosis s/p bilateral hip replacements, prostate and thyroid cancer, chronic nonhealing ulcer of right foot s/p partial third toe amputation and second toe amputation of right foot for osteomyelitis (OR cultures growing MSSA) brought to ED by ambulance with chief complaint of right hip pain after fall. We'll admit the patient to general medicine floor to treat for right trochanteric hip fracture. Right trochanteric fracture: -Gentle IV hydration -Pain management with IV Tylenol -Orthopedic consult -CBCs for H&H -Patient having lactic acidosis probably due to dehydration or alcohol use. Chronic hypomagnesemia: -Replete magnesium -Monitor magnesium level History of alcohol abuse: -Follow CIWA protocol and give Ativan accordingly. -Check alcohol level -Neuro checks History of CAD and hypertension: -Continue home medication History of hyperlipidemia: -Continue atorvastatin History of rheumatoid arthritis: -Continue hydroxychloroquine and prednisone. Chronic pain: -Continue his pain medication. H/O peripheral neuropathy: -Continue gabapentin History of GERD: -Continue omeprazole History of depression/anxiety: -Continue his home medications DVT prophylaxis: Mechanical and subcutaneous Lovenox CODE STATUS: Full code As Ranked By This Provider Problem List: 1. Fall at home 2. Fracture of greater trochanter 3. Alcohol abuse Core Measures/Misc (01/10) Acute Coronary Syndrome ACS Diagnosis: No Congestive Heart Failure Congestive Heart Failure Diagnosis No Cerebrovascular Accident CVA/TIA Diagnosis: No VTE (View Protocol) VTE Risk Factors Age>40 No Mechanical VTE Prophylaxis d/t N/A MechProphylax Ordered No VTE Pharm Prophylaxis d/t NA PharmProphylax ordered Sepsis (View protocol) Sepsis Present: No Cathi Laguerre 07/15/17 0444: Resident Review Statement Resident Statement: examined this patient, discussed with internal security manager, agreed with internal security manager Other Findings: Patient is 72-year-old male with past medical history significant for CAD status post CABG, pulmonary hypertension, GERD, depression, peripheral neuropathy, severe rheumatoid arthritis on prednisone and Plaquenil, avascular necrosis status post bilateral hip replacement, prostate and thyroid cancer, hypertension, chronic nonhealing ulcer and right status post partial third toe amputation and second toe amputation recently admitted at [facility] in . patient endorses that for the last 2-3 days he was unstable in his gait and not able to maintain his balance. He was trying to hold reid and objects to walk around. This afternoon he was at the kitchen and holding refrigerator door and was trying to impact his cat and lost his balance and fell on his right side and also strike his head but denied any loss of consciousness before and after the episode. He denied any palpitations, chest pain, dizziness , blurry vision, nausea, vomiting, diarrhea, any urinary or bowel complaints. Patient's daughter was concerned about his discharge from [facility] on his right third toe and came to the ED 3 days ago and was prescribed a seven-day course of Bactrim which she is currently on. Vital signs on admission were temperature 96.8, pulse 82, respiratory rate 20, blood pressure 167/93 and he was saturating 94% on room air. Labs were significant for WBC count 3.9, hemoglobin 10.9, hematocrit 32.6, platelet count 134, he had to call or Sodium 136, potassium 4.2, BUNs 15, creatinine 0.8, lactic acid 3.5, magnesium 1.5, proBNP 2160 X-ray right hip showed mildly displaced fracture of greater trochanter. Chest x -ray showed no acute abnormality of the chest and head CT is negative for any acute intracranial pathology. On examination Patient is alert and oriented 3 Head atraumatic Neck supple Chest reduced air entry Heart S1-S2 normal, no added sounds Abdomen protuberant but tympanic no organomegaly Left upper extremity had very fragile skin and almost 2 inches laceration and old bruises Right lower extremity slightly irritated, normal pulses, no obvious bruise at hip site. Assessment and plan 32-year-old male with history of hypertension, CAD status post CABG, GERD, diverticulosis, rheumatoid arthritis and peripheral neuropathy came in after a fall resulted in right slightly displaced fracture of greater trochanter. Problem list 1. Greater trochanteric fracture 2. History of hypertension 3. History of rheumatoid arthritis on prednisone 4. History of CAD status post CABG 5. History of severe arthritis 6. History of peripheral neuropathy 7. CHRONIC HYPOMAGNESEIA Plan 1. We'll admit him on general medical floor and we will watch CVC and BEP daily 2. Vital signs every shift 3. Adequate analgesia 4. Will request orthopedic evaluation in a.m. 5. We will continue all his home medications 6. We will continue his home dose of prednisone and Plaquenil 7. If patient needs any surgery we might consider cardiology evaluation given his previous cardiac history. 8. Given his history of alcohol abuse , we will watch his ciwa score and will give prn ativan if needed. 9. Replete electrolytes accordingly. Pharmacological DVT prophylaxis Patient is full code Heart healthy diet Jacques HANSON, [facility] 07/15/17 0615: Attending MD Review Statement Attending Statement Attending MD Statement: examined this patient, discuss w/resident/PA/PIPE COVERING MOLDER, agreed w/resident/PA/PIPE COVERING MOLDER, reviewed images, amended to note Attending Assessment/Plan: 72 yo M with h/o CAD s/p CABG, HTN, RA on prednisone and plaquenil, prostate and thyroid cancer, diastolic heart failure with pulmonary hypertension, s/p second toe and partial third toe amputation of right foot for osteomyelitis, chronic pain on opiates (follows with pain management), previous alcohol dependence with B12 deficiency and neuropathy, is here for evaluation right hip pain s/p mechanical fall at home. Patient reports that for the past 2 days, he has been feeling off-balance, unsteady on his feet and he was trying to walk around holding on to objects. He was trying to feed his cat, when he fell forward hitting his head on the wall and landing on to the right hip. He has undergone bilateral hip replacements for avascular necrosis. Of note, patient was seen in ER on July 11 for right third toe infection/ cellulitis and was placed on Bactrim for that (day 4/). Vitals stable. Exam: AAO, in mild distress due to pain, MMM, Neck supple, Chest clear, Heart S1S2 regular, multiple bruises and a lac noted to left arm. RLE: shortened not rotated, peripheral pulse intact. Labs: WBC 3.9, H/H 10.9/32.6, Plt 134, Na 136, bicarb 20, AG 19, lactic acid 3.5 , Mag 1.5, trop neg, proBNP 2160. Head CT: no acute pathology. Right hip Xray: mildly displaced fracture of greater trochanter, status post right hip replacement. CXR: no acute abnormality, multiple bilateral healed rib fractures. EKG: sinus rhythm, no acute changes. Echo (2018): EF 55%, mild to moderate MR, moderate pulmonary hypertension. Assessment and plan: 1. Mechanical fall 2. Right hip greater trochanter fracture s/p hip replacement 3. Chronic pain on opiate therapy 4. h/o rheumatoid arthritis on prednisone 5. Anion gap metabolic acidosis, lactic acidosis 6. Hypomagnesemia 7. Chronic anemia 8. h/o alcohol dependence - Admit to General medicine - Fall precautions - Type and crossmatch - Check alcohol level, CIWA protocol - Initiate IV ativan per CIWA if scoring high - Neurovascular checks - Pain management with oxycodone and IV morphine - Ortho consult ?assess need for repair ?nonsurgical fracture - If surgery planned, patient will need Cardiac clearance prior to surgery - Gentle hydration - Replete electrolytes - Resume all home meds prednisone, plaquenil, statin, sertraline, metoprolol, gabapentin, wellbutrin, cymbalta. - Complete course of bactrim for his right 3rd digit cellulitis - PT eval, STR DVT ppx Hep SC. Full code.
--- NOTE | 2017-07-15 06:15 | Admission Certification ---
Admission Certification Certification Statement - As attending physician, I certify that at the time of - admission, based on clinical presentation, severity of - symptoms, need for further diagnostic testing and - therapeutic interventions, and risk of adverse outcomes - without in-hospital treatment, in my clinical assessment, - this patient requires an acute hospital stay for a minimum - of two nights or longer. I have also considered psychsocial - factors such as support system, advanced age, financial - issues, cognitive issues, and failed out-patient treatments, - past re-admission history, safety of patient, and lack of - compliance as applicable. Specific rationale supporting this admission is: Mechanical fall, right greater trochanteric fracture, needs inpatient admission for Ortho consult, pain management and PT/ STR.
[2017-07-15 08:37] LABS: ABSOLUTE BASOPHIL COUNT 0 /CUMM (0.0-0.2); ABSOLUTE EOSINOPHIL COUNT 0 /CUMM (0.0-0.7); ABSOLUTE GRANULOCYTE CT 3.8 /CUMM (1.4-6.5); ABSOLUTE LYMPH COUNT 0.9 /CUMM (1.2-3.4); ABSOLUTE MONOCYTE COUNT 0.6 /CUMM (0.10-0.60); BASOPHIL % 0 % (0.0-2.0); EOSINOPHIL % 0.2 % (0-5); GRANULOCYTE % 71.7 % (42.2-75.2); MEAN CORPUSCULAR HGB 33.5 PG (27.0-31.0); MEAN CORPUSCULAR HGB CONC 33.5 G/DL (33.0-37.0); MEAN PLATELET VOLUME 8.8 FL (7.4-10.4); PLATELET COUNT 126 /CUMM (130-400); RBC DISTRIBUTION WIDTH 22.2 % (11.5-14.5); WHITE BLOOD CELL COUNT 5.3 /CUMM (4.8-10.8)
--- NOTE | 2017-07-15 10:44 | Cons- Orthopedic ---
See Addendum General Information and HPI Consulting Request Date of Consult: 07/15/17 Requested By: Abdifatah HANSON,Huma Reason for Consult: right greater trochanter fracture Source of Information: patient Exam Limitations: no limitations History of Present Illness: this is a 72yo M with signigicant medical history for CAD sp CABG, htn, peripheral neuropathy, and bilateral WILLI now brought to ED by ambulance SP fall found to have mildly displaced right greater trochanter fracture. Pt says he has felt unstead on his feet for the last several days and fell on his right hip when he bent over to pet his cat. He says he hit his head but denies LOC. No obvious head trauma. Pt is now admitted, complains of right hip pain, worse with movement. Pt states he has neuopathy in his lower legs which is unchanged since before his fall. Denies CP, SOB, AMANDA. Deneis fevers Pt is also concerned that he has two small wounds on toes on his right foot which he was recenting started on ABX for by the ED about a week ago. He has a history of R 2nd toe amputation and partial 3rd toe amputation. He had an appointment at the wound care clinic scheduled for today. He has previously been a patient of Dr Conroy but states that he would prefer not to see him again. Allergies/Medications Allergies: Coded Allergies: No Known Allergies (03/05/17) Home Med List: Atorvastatin Calcium (Lipitor) 80 MG TABLET 1 TAB PO DAILY hld (Reported) Bupropion HCl (Wellbutrin XL) 300 MG TAB.ER.24H 1 TAB PO DAILY MENTAL HEALTH (Reported) Cyanocobalamin (Vitamin B-12) 1,000 MCG TABLET 1 TAB PO DAILY VITAMIN SUPPORT (Reported) Diclofenac Sodium (Voltaren) 1 % GEL..GRAM. 1 MAIKEL TOP 4 TIMES/DAY PRN Pain Duloxetine Hydrochloride (Cymbalta) 30 MG CAPSULE. 1 CAP PO DAILY nerve pain (Reported) Ferrous Sulfate 325 MG (65 MG IRON) TABLET 1 TAB PO BID SUPPLEMENT (Reported) Folic Acid 1 MG TABLET 1 MG PO DAILY Vitamin Gabapentin 600 MG TABLET 1 TAB PO Q6H PRN NERVE PAIN (Reported) Hydroxychloroquine Sulfate 200 MG TABLET 1 TAB PO BID Rheumatoid Arthritis ( Reported) Metoprolol Tartrate 25 MG TABLET 1 TAB PO DAILY HEART/BP (Reported) Morphine Sulfate 15 MG TABLET 1 TAB PO Q12H PAIN (Reported) Oxycodone HCl 10 MG TABLET 1 TAB PO Q4 HRS NEEDED PRN PAIN (Reported) Pantoprazole Sodium (Protonix) 40 MG TABLET.DR 1 TAB PO PRN GI (Reported) Prednisone 5 MG TABLET 1.5 TAB PO DAILY RA (Reported) Sertraline HCl (Zoloft) 100 MG TABLET 1 TAB PO DAILY MENTAL HEALTH (Reported) Sulfamethoxazole/Trimethoprim (Bactrim Ds Tablet) 800 MG-160 MG TABLET 1 TAB PO BID cellulitis Zolpidem Tartrate (Ambien) 5 MG TABLET 1 TAB PO QPMP PRN INSOMNIA (Reported) Current Medications: Current Medications Sig/Kim Start time Last Medication Dose Route Stop Time Status Admin Acetaminophen 1,000 MG TID PRN 07/15 0400 AC IV Atorvastatin Calcium 80 MG DAILY 07/15 1000 AC 07/15 PO 0931 Bupropion HCl 300 MG DAILY 07/15 1000 AC 07/15 PO 0933 Duloxetine HCl 30 MG DAILY 07/15 1000 AC 07/15 PO 0931 Enoxaparin Sodium 40 MG DAILY 07/15 1000 AC 07/15 SC 0934 Gabapentin 600 MG Q6P PRN 07/15 0400 AC PO Hydroxychloroquine 200 MG BID 07/15 1000 AC 07/15 Sulfate PO 0932 Lorazepam 0 Q1P PRN 07/15 0630 AC IV Magnesium Sulfate 1 GM ONCE ONE 07/15 0500 DC 07/15 Dextrose/Water 100 ML IV 07/15 0859 0634 Metoprolol Tartrate 25 MG BID 07/15 1000 AC 07/15 PO 0933 Morphine Sulfate 15 MG BID 07/15 1000 AC 07/15 PO 0925 Morphine Sulfate 2 MG Q6P PRN 07/15 0645 AC 07/15 IV 0711 Morphine Sulfate 15 MG Q12H 07/15 0415 DC 07/15 PO 0452 Morphine Sulfate 2 MG Q6P PRN 07/15 0400 DC 07/15 IV 0504 Morphine Sulfate 0 .STK-MED ONE 07/15 0137 DC .ROUTE Morphine Sulfate 6 MG ONCE ONE 07/15 0130 DC 07/15 IV 07/15 0131 0153 Morphine Sulfate 0 .STK-MED ONE 07/15 0023 DC .ROUTE Morphine Sulfate 4 MG ONCE ONE 07/15 0015 DC 07/15 IV 07/15 0016 0033 Omeprazole 40 MG DAILY AC 07/15 0700 AC 07/15 PO 0524 Oxycodone HCl 10 MG Q6P PRN 07/15 0859 AC PO Oxycodone HCl 5 MG Q6 PRN 07/15 0415 DC PO Prednisone 7.5 MG DAILY 07/15 1000 AC 07/15 PO 0932 Sertraline HCl 100 MG DAILY 07/15 1000 AC 07/15 PO 0933 Sodium Chloride 1,000 ML Q20H 07/15 0500 AC 07/15 IV 07/16 0059 0459 Trimethoprim/ 1 TAB BID 07/15 1000 AC 07/15 Sulfamethoxazole PO 0931 Zolpidem Tartrate 5 MG AT BEDTIME NEED.. 07/15 0415 AC PO Past History Medical History Blood Transfusion Hx: Yes Neurological: NONE EENT: NONE Cardiovascular: CAD, hypertension, hyperlipidemia, mitral regurgitation Respiratory: NONE Gastrointestinal: GERD, hiatal hernia, umbilical hernia, diverticulosis coli hx colon TA/TVA Hepatic: NONE Renal: nephrolithiasis Musculoskeletal: chronic back pain, degen joint disease, falls, osteoarthritis, rheumatoid arthritis, hx osteo R foot Psychiatric: alcohol dependence (prev EtOH abuse), depression Endocrine: thyroid Ca Blood Disorders: anemia, B12 deficiency hx Fe def Cancer(s): prostate cancer, thyroid cancer RESIDENTIAL THERAPIST/Reproductive: NONE Surgical History Pertinent Surgical History: appendectomy, CABG (x3), cataract removal, hip replacement (bilateral), prostatectomy Family History Relations & Conditions If Any: FATHER, , Age 81. FH: prostate cancer MOTHER (smoker). , Age 77; Cause: COPD (chronic obstructive pulmonary disease). Psychosocial History Who Do You Live With? spouse, child Services at Home: None Primary Language: Khmer Smoking Status: Former Smoker Living Will? no Power of Cupola Melter Helper/HCP? no Functional Ability ADLs Independent: dressing, eating, toileting, bathing. Ambulation: independent, cane IADLs Independent: shopping, housework, finances, food prep, telephone, transportation , medication admin. Review of Systems Review of Systems: as per HPI Exam & Diagnostic Data Vital Signs and I&O Vital Signs Date Time Temp Pulse Resp B/P B/P Pulse O2 O2 Flow FiO2 Mean Ox Delivery Rate 07/15 0933 83 120/76 07/15 0638 98.4 83 20 120/76 95 Room Air 07/15 0435 Room Air 07/15 0430 98.1 82 20 128/78 94 Room Air 07/15 0332 90 20 120/64 94 Room Air 07/15 0303 97.1 89 18 126/78 94 Room Air 07/15 0154 78 18 112/61 96 Room Air 07/14 2347 96.8 82 20 167/93 94 Room Air Intake & Output 07/15 1600 07/15 0800 07/15 0000 07/14 1600 07/14 0800 07/14 0000 Intake Total 290 0 Output Total Balance 290 0 Intake, IV 50 Intake, Oral 240 0 Patient 160 lb 160 lb Weight Weight Reported by Patient Measurement Method Physical Exam: gen- NAD HEENT- atraumatic, EOMI, MMM, nares patent resp- clear bilat cardio- RRR abd- soft, +BS, nontender. small nontender umbilical hernia ext- right hip soft, no ecchymosis, tender to palpation. 1+ right PT and 1+ right DP pulse. small dry wounds on R 3rd and 4th toes, no surrounding erythema , no drainage. Distal motor function intact, Sensory status at baseline Last 24 Hours of Labs: Laboratory Tests 07/15 07/15 07/15 0710 0515 0230 Chemistry Sodium (137 - 145 mmol/L) 132 L Potassium (3.5 - 5.1 mmol/L) 4.6 Chloride (98 - 107 mmol/L) 98 Carbon Dioxide (22 - 30 mmol/L) 23 Anion Gap (5 - 16) 11 BUN (9 - 20 mg/dL) 17 Creatinine (0.7 - 1.2 mg/dL) 0.8 Estimated GFR (>60 ml/min) > 60 BUN/Creatinine Ratio (7 - 25 %) 21.3 Lactic Acid (0.7 - 2.1 mmol/L) 1.0 Creatine Kinase Cancelled Hematology CBC w Diff NO MAN DIFF REQ WBC (4.8 - 10.8 /CUMM) 5.3 RBC (4.70 - 6.10 /CUMM) 2.80 L Hgb (14.0 - 18.0 G/DL) 9.4 L Hct (42 - 52 %) 28.0 L MCV (80.0 - 94.0 FL) 100.0 H MCH (27.0 - 31.0 PG) 33.5 H MCHC (33.0 - 37.0 G/DL) 33.5 RDW (11.5 - 14.5 %) 22.2 H Plt Count (130 - 400 /CUMM) 126 L MPV (7.4 - 10.4 FL) 8.8 Gran % (42.2 - 75.2 %) 71.7 Lymphocytes % (20.5 - 51.1 %) 16.7 L Monocytes % (1.7 - 9.3 %) 11.4 H Eosinophils % (0 - 5 %) 0.2 Basophils % (0.0 - 2.0 %) 0 Absolute Granulocytes (1.4 - 6.5 /CUMM) 3.8 Absolute Lymphocytes (1.2 - 3.4 /CUMM) 0.9 L Absolute Monocytes (0.10 - 0.60 /CUMM) 0.6 Absolute Eosinophils (0.0 - 0.7 /CUMM) 0 Absolute Basophils (0.0 - 0.2 /CUMM) 0 07/15 07/15 07/15 0229 0013 0006 Chemistry Sodium (137 - 145 mmol/L) 136 L Potassium (3.5 - 5.1 mmol/L) 4.2 Chloride (98 - 107 mmol/L) 97 L Carbon Dioxide (22 - 30 mmol/L) 20 L Anion Gap (5 - 16) 19 H BUN (9 - 20 mg/dL) 15 Creatinine (0.7 - 1.2 mg/dL) 0.8 Estimated GFR (>60 ml/min) > 60 BUN/Creatinine Ratio (7 - 25 %) 18.8 Glucose (65 - 99 mg/dL) 68 Lactic Acid (0.7 - 2.1 mmol/L) Cancelled 3.5 H Calcium (8.4 - 10.2 mg/dL) 9.4 Magnesium (1.6 - 2.3 mg/dL) 1.5 L Total Bilirubin (0.2 - 1.3 mg/dL) 0.7 AST (17 - 59 U/L) 30 ALT (21 - 72 U/L) 20 L Alkaline Phosphatase (< 127 U/L) 116 Creatine Kinase (55 - 170 U/L) 130 Troponin I (<0.11 ng/ml) < 0.01 [id number] Pept (<125 pg/mL) 2160 H Cancelled Total Protein (6.3 - 8.2 g/dL) 7.0 Albumin (3.5 - 5.0 g/dL) 4.2 Globulin (1.9 - 4.2 gm/dL) 2.8 Albumin/Globulin Ratio (1.1 - 2.2 %) 1.5 Coagulation PT (9.4 - 12.5 SEC) 10.8 INR (0.90 - 1.17) 0.99 Hematology CBC w Diff NO MAN DIFF REQ WBC (4.8 - 10.8 /CUMM) 3.9 L RBC (4.70 - 6.10 /CUMM) 3.28 L Hgb (14.0 - 18.0 G/DL) 10.9 L Hct (42 - 52 %) 32.6 L MCV (80.0 - 94.0 FL) 99.3 H MCH (27.0 - 31.0 PG) 33.2 H MCHC (33.0 - 37.0 G/DL) 33.4 RDW (11.5 - 14.5 %) 21.9 H Plt Count (130 - 400 /CUMM) 134 MPV (7.4 - 10.4 FL) 7.9 Gran % (42.2 - 75.2 %) 77.6 H Lymphocytes % (20.5 - 51.1 %) 12.9 L Monocytes % (1.7 - 9.3 %) 7.9 Eosinophils % (0 - 5 %) 1.4 Basophils % (0.0 - 2.0 %) 0.2 Absolute Granulocytes (1.4 - 6.5 /CUMM) 3.0 Absolute Lymphocytes (1.2 - 3.4 /CUMM) 0.5 L Absolute Monocytes (0.10 - 0.60 /CUMM) 0.3 Absolute Eosinophils (0.0 - 0.7 /CUMM) 0.1 Absolute Basophils (0.0 - 0.2 /CUMM) 0 Toxicology Serum Alcohol (<10 MG/DL) 18.0 Imaging Results: SERVICE DATE: 07/15/17 EXAM TYPE: RAD - XRY-HIP 2-3 VIEWS, RIGHT EXAMINATION: XR HIP, RIGHT CLINICAL INFORMATION: Fall. Hip pain. COMPARISON: None TECHNIQUE: Two views of the right hip. FINDINGS: Status post right total hip replacement. Orthopedic components in position without dislocation. There is a mildly displaced fracture through the base of the greater trochanter at the lateral side of the proximal femur. Surgical clips are seen over the symphysis pubis. IMPRESSION: Mildly displaced fracture of the greater trochanter. Status post right hip replacement. DICTATED BY: Zackary Wilkinson MD DATE/TIME DICTATED:07/15/1754 [place] CONSULTANT:MILENA DATE/TIME TRANSCRIBED:07/15/1754 Assessment/Plan Assessment/Plan 72yo M with signigicant medical history for CAD sp CABG, htn, pulm htn, gerd, depression, RA on prednisone, peripheral neuropathy, and SP bilateral WILLI and R toe amputations now brought to ED by ambulance SP fall found to have mildly displaced right periprosthetic greater trochanter fracture. Crit is 32.6. Also found to have 2 small wounds on Right toes. Per Dr. Kelley, rec non-operative management of fracture as it is only minimally displaced. Physical Therapy- TTWB right leg Pt will likely need to go to rehab Will need to Follow-up with Dr Kelley as an outpatient in 1 week for repeat radiographs Rec wound care for Right 3rd and 4th toes. Right PT and DP pulses present Consult Acknowledgment - Thank you for your consult request.
--- NOTE | 2017-07-15 12:40 | Discharge Summary ---
Visit Information Visit Dates Admission Date: 07/15/17 Discharge Date: 07/26/17 Hospital Course Course Attending Physician: Huma Gardiner MD Primary Care Physician: Yasmin Jauregui MD Consulting Request: 1 Consulting Specialty: Critical Care Consulting Physician: Dr. Guerin Reason for Consult: delirium tremens Consulting Request: 2 Consulting Specialty: Infectious Disease Consulting Physician: Sekou Choe MD Reason for Consult: Transient fever Consulting Request: 3 Consulting Specialty: Podiatry Consulting Physician: Dr. Wang Reason for Consult: right toe ulcer Consulting Request: 4 Consulting Specialty: Psychiatry Consulting Physician: Zana Lord APRN Reason for Consult: ETOH withdrawal/delirium tremens Hospital Course: 72 yo M with h/o CAD s/p CABG, HTN, RA on prednisone and plaquenil, prostate and thyroid cancer, diastolic heart failure with pulmonary hypertension, s/p second toe and partial third toe amputation of right foot for osteomyelitis, chronic pain on opiates (follows with pain management), previous alcohol dependence with B12 deficiency and neuropathy, is here for evaluation right hip pain s/p mechanical fall at home. Patient reports that for the past 2 days, he has been feeling off-balance, unsteady on his feet and he was trying to walk around holding on to objects. He was trying to feed his cat, when he fell forward hitting his head on the wall and landing on to the right hip. He has undergone bilateral hip replacements for avascular necrosis. Of note, patient was seen in ER on July 11 for right third toe infection/ cellulitis and was placed on Bactrim for that (day 4 at admission). Physical exam on presentation: General: AAO, in mild distress due to pain, MMM, Neck supple, Chest clear, Heart S1S2 regular, multiple bruises and a lac noted to left arm. RLE: shortened not rotated, peripheral pulse intact. Labs: WBC 3.9, H/H 10.9/32.6, Plt 134, Na 136, bicarb 20, AG 19, lactic acid 3.5, Mag 1.5, trop neg, proBNP 2160. Head CT: no acute pathology. Right hip Xray: mildly displaced fracture of greater trochanter , status post right hip replacement. CXR: no acute abnormality, multiple bilateral healed rib fractures. EKG: sinus rhythm, no acute changes. Echo (2018) : EF 55%, mild to moderate MR, moderate pulmonary hypertension. Patient was admitted to the general medicine floor and managed for following conditions: 1. Right Greater tronchanteric periprosthetic fracture Ortho consulted and suggested nonoperative, toe touch weight bearing on right foot and total weight bearing on left side. Pain management with oxycodone 10mg Q6, morphine sulphate 15mg Q12 and IV morphine for breakthrough pain. PT evaluated and suggested STR. His pain regimen was switched to by mouth MS Contin 15 mg every 6 hours and by mouth oxycodone 10 mg every 6 hours when necessary for breakthrough pain on discharge. 2. Right third toe infection/ cellulitis He had a history of second toe and partial third toe amputation of right foot for osteomyelitis. Recently had cellulitis and started on bactrim as outpatient. He completed his 7 day course of Bactrim on 07/17/17. His right third toe was evaluated by behavior interventionist who determined there was no active infection and that daily dressings of his toe should be continued. 3. CAD s/p CABG He was continued on his home medication of aspirin 81 mg daily, atorvastatin 80mg daily, metoprolol tartarte 25mg BID. 4. Alcohol withdrawl Placed on diagnostic CIWA and PRN ativan. However he went into florid delirium tremens with hallucinations and required ICU admission for an Ativan drip. During this episode he was transiently hypotensive and required central line placement and pressor support which was quickly discontinued as his blood pressure normalized. He received high-dose IV thiamine therapy. He was eventually tapered off the Ativan drip and started on a by mouth Ativan taper which was completed in the hospital. 5. Rheumatoid arthritis He was continued on by mouth prednisone and plaquenil 200mg BID 6. Depression He was continued on his home medications of Buproprion 300mg daily, Duloxetin 30mg daily, Sertraline 100mg daily and zolpidem 5mg at bedtime during his hospital stay. Of note patient was advised that he should not drink alcohol with this bupropion medication as it can lower seizure threshold. He had some anxiety on admission over the recent of his sister was treated with by mouth low dose Ativan as needed. Complications: none Allergies: Coded Allergies: No Known Allergies (03/05/17) Significant Procedures: Head CT IMPRESSION: No acute intracranial pathology. Hip Xray IMPRESSION: Mildly displaced fracture of the greater trochanter. Status post right hip replacement. CXR IMPRESSION: No acute abnormality of the chest. Disposition Summary Disposition Principal Diagnosis: 1. Mildly displaced fracture of the greater trochanter 2. Right pubic ramus fracture 3. Alcohol withdrawal with delirium tremens 4. Right third toe cellulitis Additional Diagnosis: 4. CAD s/p CABG 5. Rheumatoid arthritis on plaquenil 6. Depression Discharge Disposition: SNF Discharge Instructions General Discharge Information Code Status: Full Code Patient's Diet: REGULAR DIET Patient's Activity: Toe touch weight bearing on right side, total weight bearing on left side. Follow-Up Instructions/Appts: 1. Follow-up with your primary care provider within one week of discharge. 2. Follow-up with your orthopedic surgeon Dr. Kelley within 1 week of discharge. 3. Toe touch weight bearing as tolerated. 4. Patient should follow-up with [facility] for alcohol rehabilitation on discharge from the short-term rehabilitation facility. This should be set up by the licensed master social worker and short-term rehabilitation close to his discharge d date from the facility. 5. Patient should not drink alcohol with his bupropion medication as it can lower seizure threshold. 5. Patient suggested to have a psychiatric evaluation at the facility for anxiety. Medications at Discharge Discharge Medications: Stop taking the following medications: Morphine Sulfate (Morphine Sulfate) 15 MG TABLET ORAL Q12H Metoprolol Tartrate (Metoprolol Tartrate) 25 MG TABLET ORAL DAILY Sulfamethoxazole/Trimethoprim (Bactrim Ds Tablet) 800 MG-160 MG TABLET ORAL TWICE DAILY Qty = 14 Continue taking these medications: Atorvastatin Calcium (Lipitor) 80 MG TABLET 1 Tablet ORAL DAILY Comments: Last Taken: 07/26/17 Time: 9:00 AM Oxycodone HCl (Oxycodone HCl) 10 MG TABLET 1 Tablet ORAL EVERY 4 HOURS NEEDED as needed for PAIN Comments: Last Taken: 07/26/17 Time: 11:45 AM Sertraline HCl (Zoloft) 100 MG TABLET 1 Tablet ORAL DAILY Comments: Last Taken: 07/26/17 Time: 9:00 AM Pantoprazole Sodium (Protonix) 40 MG TABLET.DR 1 Tablet ORAL as needed for GI Comments: Last Taken: 07/26/17 Time: 6:15 AM (PRILOSEC GIVEN) Cyanocobalamin (Vitamin B-12) 1,000 MCG TABLET 1 Tablet ORAL DAILY Comments: Last Taken: 07/26/17 Time: 9:00 AM Zolpidem Tartrate (Ambien) 5 MG TABLET 1 Tablet ORAL Every night as needed as needed for INSOMNIA Comments: NOT GIVEN IN HOSPITAL Duloxetine Hydrochloride (Cymbalta) 30 MG CAPSULE. 1 Capsule ORAL DAILY Comments: Last Taken: 07/26/17 Time: 9:00 AM Ferrous Sulfate (Ferrous Sulfate) 325 MG (65 MG IRON) TABLET 1 Tablet ORAL TWICE DAILY Comments: Last Taken: 07/26/17 Time: 9:00 AM Hydroxychloroquine Sulfate (Hydroxychloroquine Sulfate) 200 MG TABLET 1 Tablet ORAL TWICE DAILY Comments: Last Taken: 07/26/17 Time: 9:00 AM Prednisone (Prednisone) 5 MG TABLET 1.5 Tablet ORAL DAILY Comments: Last Taken: 07/26/17 Time: 9:00 AM Folic Acid (Folic Acid) 1 MG TABLET 1 Milligram ORAL DAILY Qty = 30 Comments: Last Taken: 07/26/17 Time: 9:00 AM Diclofenac Sodium (Voltaren) 1 % GEL..GRAM. 1 Application On the skin 4 TIMES A DAY as needed for Pain Qty = 1 Comments: NOT GIVEN IN HOSPITAL Bupropion HCl (Wellbutrin XL) 300 MG TAB.ER.24H 1 Tablet ORAL DAILY Comments: Last Taken: 07/26/17 Time: 9:00 AM Gabapentin (Gabapentin) 600 MG TABLET 1 Tablet ORAL Q6H as needed for NERVE PAIN Comments: Last Taken: 07/26/17 Time: 9:00 AM Aspirin (Ecotrin*) 81 MG TABLET. 1 Tablet ORAL DAILY Start taking the following new medications: Multivitamin (One Daily Multivitamin) 1 EACH TABLET 1 Tablet ORAL DAILY Qty = 30 No Refills Comments: Last Taken: 07/26/17 Time: 9:00 AM Metoprolol Tartrate (Metoprolol Tartrate) 25 MG TABLET 1 Tablet ORAL TWICE DAILY Qty = 60 No Refills Comments: Last Taken: 07/26/17 Time: 9:00 AM Morphine Sulfate (Ms Contin) 15 MG TABLET.ER 1 Tablet ORAL EVERY 8 HOURS Qty = 30 No Refills Comments: Last Taken: 07/26/17 Time: 9:00 AM Thiamine HCl (Thiamine HCl) 100 MG TABLET 1 Tablet ORAL DAILY Qty = 30 No Refills Comments: Last Taken: 07/26/17 Time: 9:00 AM Copies To: Shania HANSON,Yasmin Benítez; Дмитрий HANSON,Sekou Wang DPM,Bob; Eduardo HANSON,Mine; Allie HANSON,Asael Attending MD Review Statement Documenting Attending: Abdifatah HANSON,Huma
--- NOTE | 2017-07-15 13:07 | Cons- Wound Care ---
General Information and HPI Consulting Request Date of Consult: 07/15/17 Requested By: Abdifatah HANSON,Huma Reason for Consult: Right second toe ulcer present on admission History of Present Illness: Patient is a 72-year-old nondiabetic without evidence of peripheral vascular disease on ultrasound 1 year ago admitted with pelvic fracture after a fall. He underwent amputation of right second toe for osteomyelitis and has A's minute residual ulcer present there is been no drainage or erythema Allergies/Medications Allergies: Coded Allergies: No Known Allergies (03/05/17) Home Med List: Atorvastatin Calcium (Lipitor) 80 MG TABLET 1 TAB PO DAILY hld (Reported) Bupropion HCl (Wellbutrin XL) 300 MG TAB.ER.24H 1 TAB PO DAILY MENTAL HEALTH (Reported) Cyanocobalamin (Vitamin B-12) 1,000 MCG TABLET 1 TAB PO DAILY VITAMIN SUPPORT (Reported) Diclofenac Sodium (Voltaren) 1 % GEL..GRAM. 1 MAIKEL TOP 4 TIMES/DAY PRN Pain Duloxetine Hydrochloride (Cymbalta) 30 MG CAPSULE.DR 1 CAP PO DAILY nerve pain (Reported) Ferrous Sulfate 325 MG (65 MG IRON) TABLET 1 TAB PO BID SUPPLEMENT (Reported) Folic Acid 1 MG TABLET 1 MG PO DAILY Vitamin Gabapentin 600 MG TABLET 1 TAB PO Q6H PRN NERVE PAIN (Reported) Hydroxychloroquine Sulfate 200 MG TABLET 1 TAB PO BID Rheumatoid Arthritis ( Reported) Metoprolol Tartrate 25 MG TABLET 1 TAB PO DAILY HEART/BP (Reported) Morphine Sulfate 15 MG TABLET 1 TAB PO Q12H PAIN (Reported) Oxycodone HCl 10 MG TABLET 1 TAB PO Q4 HRS NEEDED PRN PAIN (Reported) Pantoprazole Sodium (Protonix) 40 MG TABLET.DR 1 TAB PO PRN GI (Reported) Prednisone 5 MG TABLET 1.5 TAB PO DAILY RA (Reported) Sertraline HCl (Zoloft) 100 MG TABLET 1 TAB PO DAILY MENTAL HEALTH (Reported) Sulfamethoxazole/Trimethoprim (Bactrim Ds Tablet) 800 MG-160 MG TABLET 1 TAB PO BID cellulitis Zolpidem Tartrate (Ambien) 5 MG TABLET 1 TAB PO QPMP PRN INSOMNIA (Reported) Review of Systems Review of Systems: Noncontributory Past History Travel History Traveled to [place] past 21 day No Medical History Blood Transfusion Hx: Yes Neurological: NONE EENT: NONE Cardiovascular: CAD, hypertension, hyperlipidemia, mitral regurgitation Respiratory: NONE Gastrointestinal: GERD, hiatal hernia, umbilical hernia, diverticulosis coli hx colon TA/TVA Hepatic: NONE Renal: nephrolithiasis Musculoskeletal: chronic back pain, degen joint disease, falls, osteoarthritis, rheumatoid arthritis, hx osteo R foot Psychiatric: alcohol dependence (prev EtOH abuse), depression Endocrine: thyroid Ca Blood Disorders: anemia, B12 deficiency hx Fe def Cancer(s): prostate cancer, thyroid cancer LEGAL SUPPORT 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 FH: prostate cancer MOTHER (smoker). , Age 77; Cause: COPD (chronic obstructive pulmonary disease). Psychosocial History Who Do You Live With? spouse, child Services at Home: None Primary Language: Romansh Smoking Status: Former Smoker Living Will? no Power of 3D Technologist/HCP? no Functional Ability ADLs Independent: dressing, eating, toileting, bathing. Ambulation: independent, cane IADLs Independent: shopping, housework, finances, food prep, telephone, transportation , medication admin. Exam & Diagnostic Data Vital Signs and I&O Vital Signs Result Date Time O2 Delivery Room Air 07/15 1235 B/P 120/76 07/15 0933 Pulse 83 07/15 0933 Pulse Ox 95 07/15 0638 Temp 98.4 07/15 0638 Resp 20 07/15 0638 Intake & Output 07/15 0000 07/14 1600 07/14 0800 Intake Total 0 Output Total Balance 0 Intake, Oral 0 Patient 160 lb Weight Exam of the right second toe shows there to be a partial amputation there is a 0.3 x 0.1 cm small dry open area which is difficult to stage within a small area of what appears to be callus. Over the third right toe is a dry scab due to hammertoe deformity, there is no drainage or erythema, x-rays negative, the dorsalis pedis poses able to be palpated the posterior tibial is not able to be palpated there is evidence of sensory neuropathy Assessment/Plan Impression/Plan: 72-year-old gentleman status post recent partially dictation for osteomyelitis as a small nonhealing wound post resection of the area appears overly dry recommend placing a small piece of Xeroform from wound moisture with gauze over dressing. The third toe scab can be left intact with appropriate offloading. Consult Acknowledgment - Thank you for your consult request.
--- NOTE | 2017-07-15 13:40 | PN- Att Addend ---
Attending Addendum Attending Brief Note Patient seen and examined, did complain of pain in the right lower extremity. Patient is admitted with a fall and sustained mildly displaced fracture of the right greater trochanter. Vital Signs Date Time Temp Pulse Resp B/P B/P Pulse O2 O2 Flow FiO2 Mean Ox Delivery Rate 07/15 1235 Room Air 07/15 0933 83 120/76 07/15 0638 98.4 83 20 120/76 95 Room Air 07/15 0435 Room Air 07/15 0430 98.1 82 20 128/78 94 Room Air 07/15 0332 90 20 120/64 94 Room Air 07/15 0303 97.1 89 18 126/78 94 Room Air 07/15 0154 78 18 112/61 96 Room Air 07/14 2347 96.8 82 20 167/93 94 Room Air on exam; aox3, nad cv; s1, s2, rrr resp; clear abd; soft, nt, bs+ ext; no edema. skin; superficial small ulcer on right sided toes. Laboratory Tests 07/15 07/15 07/15 0710 0515 0230 Chemistry Sodium (137 - 145 mmol/L) 132 L Potassium (3.5 - 5.1 mmol/L) 4.6 Chloride (98 - 107 mmol/L) 98 Carbon Dioxide (22 - 30 mmol/L) 23 Anion Gap (5 - 16) 11 BUN (9 - 20 mg/dL) 17 Creatinine (0.7 - 1.2 mg/dL) 0.8 Estimated GFR (>60 ml/min) > 60 BUN/Creatinine Ratio (7 - 25 %) 21.3 Lactic Acid (0.7 - 2.1 mmol/L) 1.0 Creatine Kinase Cancelled Hematology CBC w Diff NO MAN DIFF REQ WBC (4.8 - 10.8 /CUMM) 5.3 RBC (4.70 - 6.10 /CUMM) 2.80 L Hgb (14.0 - 18.0 G/DL) 9.4 L Hct (42 - 52 %) 28.0 L MCV (80.0 - 94.0 FL) 100.0 H MCH (27.0 - 31.0 PG) 33.5 H MCHC (33.0 - 37.0 G/DL) 33.5 RDW (11.5 - 14.5 %) 22.2 H Plt Count (130 - 400 /CUMM) 126 L MPV (7.4 - 10.4 FL) 8.8 Gran % (42.2 - 75.2 %) 71.7 Lymphocytes % (20.5 - 51.1 %) 16.7 L Monocytes % (1.7 - 9.3 %) 11.4 H Eosinophils % (0 - 5 %) 0.2 Basophils % (0.0 - 2.0 %) 0 Absolute Granulocytes (1.4 - 6.5 /CUMM) 3.8 Absolute Lymphocytes (1.2 - 3.4 /CUMM) 0.9 L Absolute Monocytes (0.10 - 0.60 /CUMM) 0.6 Absolute Eosinophils (0.0 - 0.7 /CUMM) 0 Absolute Basophils (0.0 - 0.2 /CUMM) 0 07/15 07/15 07/15 0229 0013 0006 Chemistry Sodium (137 - 145 mmol/L) 136 L Potassium (3.5 - 5.1 mmol/L) 4.2 Chloride (98 - 107 mmol/L) 97 L Carbon Dioxide (22 - 30 mmol/L) 20 L Anion Gap (5 - 16) 19 H BUN (9 - 20 mg/dL) 15 Creatinine (0.7 - 1.2 mg/dL) 0.8 Estimated GFR (>60 ml/min) > 60 BUN/Creatinine Ratio (7 - 25 %) 18.8 Glucose (65 - 99 mg/dL) 68 Lactic Acid (0.7 - 2.1 mmol/L) Cancelled 3.5 H Calcium (8.4 - 10.2 mg/dL) 9.4 Magnesium (1.6 - 2.3 mg/dL) 1.5 L Total Bilirubin (0.2 - 1.3 mg/dL) 0.7 AST (17 - 59 U/L) 30 ALT (21 - 72 U/L) 20 L Alkaline Phosphatase (< 127 U/L) 116 Creatine Kinase (55 - 170 U/L) 130 Troponin I (<0.11 ng/ml) < 0.01 Chs-L-Vodystswhbi Pept (<125 pg/mL) 2160 H Cancelled Total Protein (6.3 - 8.2 g/dL) 7.0 Albumin (3.5 - 5.0 g/dL) 4.2 Globulin (1.9 - 4.2 gm/dL) 2.8 Albumin/Globulin Ratio (1.1 - 2.2 %) 1.5 Coagulation PT (9.4 - 12.5 SEC) 10.8 INR (0.90 - 1.17) 0.99 Hematology CBC w Diff NO MAN DIFF REQ WBC (4.8 - 10.8 /CUMM) 3.9 L RBC (4.70 - 6.10 /CUMM) 3.28 L Hgb (14.0 - 18.0 G/DL) 10.9 L Hct (42 - 52 %) 32.6 L MCV (80.0 - 94.0 FL) 99.3 H MCH (27.0 - 31.0 PG) 33.2 H MCHC (33.0 - 37.0 G/DL) 33.4 RDW (11.5 - 14.5 %) 21.9 H Plt Count (130 - 400 /CUMM) 134 MPV (7.4 - 10.4 FL) 7.9 Gran % (42.2 - 75.2 %) 77.6 H Lymphocytes % (20.5 - 51.1 %) 12.9 L Monocytes % (1.7 - 9.3 %) 7.9 Eosinophils % (0 - 5 %) 1.4 Basophils % (0.0 - 2.0 %) 0.2 Absolute Granulocytes (1.4 - 6.5 /CUMM) 3.0 Absolute Lymphocytes (1.2 - 3.4 /CUMM) 0.5 L Absolute Monocytes (0.10 - 0.60 /CUMM) 0.3 Absolute Eosinophils (0.0 - 0.7 /CUMM) 0.1 Absolute Basophils (0.0 - 0.2 /CUMM) 0 Toxicology Serum Alcohol (<10 MG/DL) 18.0 A/P; 72 y/o M with pmh sig for CAD s/p CABG, HTN, pulmonary hypertension, GERD, diverticulosis, nephrolithiasis, depression, peripheral neuropathy, rheumatoid arthritis on prednisone and plaquenil, avascular necrosis s/p bilateral hip replacements, prostate and thyroid cancer, chronic nonhealing ulcer of right foot s/p partial third toe amputation and second toe amputation of right foot for osteomyelitis, admitted with fall and right hip pain. Found to have mildly displaced fracture of the right greater trochanter. Patient seen by orthopedic. Conservative management recommended. Activity status toe-touch weightbearing right side. Patient will require pain management. Wound care consult has been obtained. Continue the rest of the home medications. Patient was started on rectal recently for this possible toe infection. DVT px: Lovenox. Patient will need physical therapy and likely rehabilitation.
[2017-07-16] VITALS (8 sets, daily range): BP systolic 88–126; BP diastolic 54–68
--- NOTE | 2017-07-16 07:23 | PN- Housestaff ---
Dc HANSON,Dede 07/16/17 0723: Subjective Follow-up For: Mildly displaced fracture of the greater trochanter CAD s/p CABG rheumatoid arthritis on plaquenil Subjective: seen and examined Patient remains in the bed. Tried to work with PT unablet o secondary to pain. No overnight issues. Review of Systems Constitutional: Reports: see HPI. Objective Last 24 Hrs of Vital Signs/I&O Vital Signs Date Time Temp Pulse Resp B/P B/P Pulse O2 O2 Flow FiO2 Mean Ox Delivery Rate 07/16 0600 98.3 68 18 102/60 94 Room Air 07/15 2149 98.6 67 19 100/50 92 Room Air 07/15 2148 98/54 07/15 1800 98.5 96/54 07/15 1711 88/50 07/15 1600 98.5 67 22 80/48 07/15 1451 98.5 80/48 96 Room Air 07/15 1400 98.0 80 20 110/70 07/15 1235 Room Air 07/15 1200 98.0 80 20 110/70 07/15 1000 98.4 83 20 120/76 07/15 0933 83 120/76 07/15 0800 98.4 83 20 120/76 Intake & Output 07/16 0800 07/16 0000 07/15 1600 Intake Total 240 480 Output Total 300 Balance 240 480 -300 Intake, Oral 240 480 Output, Urine 300 Physical Exam General Appearance: Alert, Oriented X3, Cooperative Skin: No Rashes, No Breakdown HEENT: Atraumatic, PERRLA, EOMI Neck: Supple Cardiovascular: Normal S1, Normal S2 Lungs: Clear to Auscultation, Normal Air Movement Abdomen: Normal Bowel Sounds, Soft, No Tenderness Current Medications: Current Medications Sig/Kim Start time Last Medication Dose Route Stop Time Status Admin Acetaminophen 1,000 MG TID PRN 07/15 0400 AC IV Atorvastatin Calcium 80 MG DAILY 07/15 1000 AC 07/16 PO 0948 Bupropion HCl 300 MG DAILY 07/15 1000 AC 07/16 PO 0948 Duloxetine HCl 30 MG DAILY 07/15 1000 AC 07/16 PO 0948 Enoxaparin Sodium 40 MG DAILY 07/15 1000 AC 07/16 SC 0948 Gabapentin 600 MG Q6P PRN 07/15 0400 AC 07/16 PO 0954 Hydroxychloroquine 200 MG BID 07/15 1000 AC 07/16 Sulfate PO 0948 Lorazepam 0 Q1P PRN 07/15 0630 AC IV Metoprolol Tartrate 25 MG BID 07/15 1000 AC 07/16 PO 1108 Morphine Sulfate 15 MG BID 07/15 1000 AC 07/16 PO 0947 Morphine Sulfate 2 MG Q6P PRN 07/15 0645 AC 07/16 IV 1400 Omeprazole 40 MG DAILY AC 07/15 0700 AC 07/16 PO 0628 Oxycodone HCl 10 MG Q6 07/16 1200 AC 07/16 PO 1203 Oxycodone HCl 10 MG Q6P PRN 07/15 0859 DC 07/16 PO 0640 Patient Medication 1 ED ONE ONE 07/16 1345 DC Teaching ED 07/16 1346 Prednisone 7.5 MG DAILY 07/15 1000 AC 07/16 PO 0948 Sertraline HCl 100 MG DAILY 07/15 1000 AC 07/16 PO 0948 Sodium Chloride 500 ML BOLUS ONE 07/15 1715 DC 07/15 IV 07/15 1814 1733 Sodium Chloride 1,000 ML Q20H 07/15 0500 DC 07/15 IV 07/16 0059 0459 Trimethoprim/ 1 TAB BID 07/15 1000 AC 07/16 Sulfamethoxazole PO 0948 Zolpidem Tartrate 5 MG AT BEDTIME NEED.. 07/15 0415 07/15 PO 2215 Assessment/Plan Assessment: 72 yo M with h/o CAD s/p CABG, HTN, RA on prednisone and plaquenil, prostate and thyroid cancer, diastolic heart failure with pulmonary hypertension, s/p second toe and partial third toe amputation of right foot for osteomyelitis, chronic pain on opiates (follows with pain management), previous alcohol dependence with B12 deficiency and neuropathy, is here for evaluation right hip pain s/p mechanical fall at home. Patient reports that for the past 2 days, he has been feeling off-balance, unsteady on his feet and he was trying to walk around holding on to objects. He was trying to feed his cat, when he fell forward hitting his head on the wall and landing on to the right hip. He has undergone bilateral hip replacements for avascular necrosis. Of note, patient was seen in ER on July 11 for right third toe infection/ cellulitis and was placed on Bactrim for that (day 07/31 at admission). Vitals stable. Exam: AAO, in mild distress due to pain, MMM, Neck supple, Chest clear, Heart S1S2 regular, multiple bruises and a lac noted to left arm. RLE: shortened not rotated, peripheral pulse intact. Labs: WBC 3.9, H/H 10.9/32.6, Plt 134, Na 136, bicarb 20, AG 19, lactic acid 3.5, Mag 1.5, trop neg, proBNP 2160. Head CT: no acute pathology. Right hip Xray: mildly displaced fracture of greater trochanter, status post right hip replacement. CXR: no acute abnormality , multiple bilateral healed rib fractures. EKG: sinus rhythm, no acute changes. Echo (2018): EF 55%, mild to moderate MR, moderate pulmonary hypertension. Plan Admitted to general medicine floor Right Greater tronchanteric periprosthetic fracture Ortho consulted and suggested nonoperative, toe touch weight bearing on right foot and total weight bearing on left side. Pain management with oxycodone 10mg Q6, morphine sulphate 15mg Q12 and IV morphine for breakthrough pain. PT evaluated and suggested STR. Right third toe infection/ cellulitis He had a history of second toe and partial third toe amputation of right foot for osteomyelitis. Recently had cellulitis and started on bactrim as outpatient. He will complete 7 day course by 07/17/17. Continue bactrim till 07/17/17. CAD s/p CABG Continue ASA, Atorvastatin 80mg dilay metoprolol tartarte 25mg BID Alcohol withdrawl Placed on diagnostic CIWA and PRN ativan Rheumatoid arthritis Continue prednisone and plaquenil 200mg BID Mental health He was on Buproprion 300mg daily, Duloxetin 30mg daily, Sertraline 100mg daily and zolpidem 5mg at bedtime which were contined during his hospital stay. DVT prophylaxis SC lovenox Code status full code Problem List: 1. Cellulitis of toe 2. Fracture of greater trochanter 3. Fall at home 4. H/O prostatectomy 5. Alcohol abuse Pain Ratin Pain Location: right femur Pain Goal: Pain 4 or less Pain Plan: oxycodone morphine Tomorrow's Labs & Rationales: none Huma Gardiner MD 07/16/17 1149: Attending Review Statement Attending Statement Attending MD Statement: examined this patient, discuss w/resident/PA/TRADE SHOW SPECIALIST, agreed w/resident/PA/TRADE SHOW SPECIALIST, reviewed EMR data (avail), discussed with nursing, discussed with case mgmt, reviewed images, amended to note Attending Assessment/Plan: Patient seen and examined, he was upset this morning because he said that his pain was not well controlled. He wants his oxycodone and MS Contin to be scheduled. He is also ordered when necessary morphine IV. Vital Signs Date Time Temp Pulse Resp B/P B/P Pulse O2 O2 Flow FiO2 Mean Ox Delivery Rate 07/16 1108 70 126/60 07/16 1103 126/60 07/16 0953 73.0 100/60 07/16 0800 98.3 68 18 102/60 07/16 0800 94 Room Air 07/16 0600 98.3 68 18 102/60 94 Room Air 07/15 2149 98.6 67 19 100/50 92 Room Air 07/15 2148 98/54 07/15 1800 98.5 67 22 96/54 07/15 1711 88/50 / 1600 98.5 67 22 80/48 07/15 1451 98.5 67 22 80/48 96 Room Air 07/15 1400 98.0 80 20 110/70 07/15 1235 Room Air 07/15 1200 98.0 80 20 110/70 on exam; aox3, nad, upset about his pain. cv; s1, s2, rr resp; clear abd; spft, nt, bs+ ext; no edema. no labs A/P: 72 y/o M with pmh sig for CAD s/p CABG, HTN, pulmonary hypertension, GERD, diverticulosis, nephrolithiasis, depression, peripheral neuropathy, rheumatoid arthritis on prednisone and plaquenil, avascular necrosis s/p bilateral hip replacements, prostate and thyroid cancer, chronic nonhealing ulcer of right foot s/p partial third toe amputation and second toe amputation of right foot for osteomyelitis, admitted with fall and right hip pain. Found to have mildly displaced fracture of the right greater trochanter. Patient seen by orthopedic. Conservative management recommended. Activity status toe-touch weightbearing right side. Patient will require pain management. I have changed his oxycodone to scheduled from when necessary. Wound care consult has been obtained. Continue the rest of the home medications. Patient was started on rectal recently for this possible toe infection. DVT px: Lovenox. Patient will need physical therapy and likely rehabilitation.
--- NOTE | 2017-07-16 17:13 | Patient Discharge Instructions ---
Discharge Instructions General Discharge Information You were seen/treated for: 1. Mildly displaced fracture of the greater trochanter 2. Right pubic ramus fracture 3. Alcohol withdrawal with delirium tremens 4. Right third toe cellulitis You had these procedures: Conservative management of right greater trochanteric and pubic ramus fractures Watch for these problems: Increasing pain despite the use of pain medication Special Instructions: 1. Follow-up with your primary care provider within one week of discharge. 2. Follow-up with your orthopedic surgeon Dr. Kelley within 1 week of discharge. 3. Toe touch weight bearing as tolerated. 4. Patient should follow-up with [facility] for alcohol rehabilitation on discharge from the short-term rehabilitation facility. This should be set up by the social worker psychiatric and short-term rehabilitation close to his discharge d date from the facility. 5. Patient should not drink alcohol with his bupropion medication as it can lower seizure threshold. 6. Patient should have psychiatry evaluation in the short term rehab for anxiety. Diet Continue normal diet: No Recommended Diet: Heart Healthy Activity Full Activity/No Limits: No Activity Self Limited: Yes Pounds, do NOT lift more than: 5 Additional ACTIVITY Info: Toe touch weight bearing as tolerated Acute Coronary Syndrome Inclusion Criteria At DC or during hospital stay patient has or had the following: ACS DIAGNOSIS No Discharge Core Measures Meds if any: Prescribed or Continued at Discharge Meds if any: NOT Prescribed or Continued at Discharge Congestive Heart Failure Inclusion Criteria At DC or during hospital stay patient has or had the following: CHF DIAGNOSIS No Discharge Core Measures Meds if any: Prescribed or Continued at Discharge Meds if any: NOT Prescribed or Continued at Discharge Cerebrovascular accident Inclusion Criteria At DC or during hospital stay patient has or had the following: CVA/TIA Diagnosis No Discharge Core Measures Meds if any: Prescribed or Continued at Discharge Meds if any: NOT Prescribed or Continued at Discharge Venous thromboembolism Inclusion Criteria VTE Diagnosis No VTE Type NONE VTE Confirmed by (Test) NONE Discharge Core Measures - Per Current guidelines, there needs to be overlap - treatment for the first 5 days of Warfarin therapy. - If discharged on Warfarin prior to 5 days of - overlap therapy, the patient will need to be - assessed for post discharge needs including - *Post discharge parental anticoagulation - *Warfarin and/or parental anticoagulation education - *Follow up date to check INR post discharge At least 5 days overlap therapy as Inpatient No Meds if any: Prescribed or Continued at Discharge Note: Overlap Therapy is Warfarin and Anticoagulant Meds if any: NOT Prescribed or Continued at Discharge
--- NOTE | 2017-07-16 20:28 | Event Note ---
Event Note Event Note: Situation: Patient was found to be disoriented, hallucinating, increasingly tremulous and physical exam findings suggestive of DTs Brief: 72 year old man with multiple medical problems significant for EtOH use admitted for evaluation s/p fall where he suffered a right mildly displaced greater trochanteric fracture. He was being treated conservatively for his fracture This evening the patient was found to be disoriented and hallucinating. The patient received atotal of 7mg of Ativan IV over the course of 2 hours with no improvement in his symptoms. His vitals showed a temp of 101.4 F, BP 100/55, pulse 70s. He was given IV tylenol and blood cultures were drawn. Daughter at bedside reported that the patient uses 2-4 large beers of 8% alcohol each night. He used to be a heavy drinker but now has cut back. He has a history of becoming agitated, hallucinations during past hospitalization. No previous hospitalizations specifically for alcohol detox. A/P: * Transfer patient to ICU * He would likely require IV Ativan drip for his DTs * CXR for possible aspiration * Further management per ICU team. * Attending Dr Hanna was informed of the situation.
--- NOTE | 2017-07-16 21:42 | Acceptance Note - Resident/Int ---
Wil Moffett MD 07/16/172115: Subjective Background: 72 year old man with multiple medical problems significant for EtOH abuse admitted for evaluation s/p fall where he suffered a right mildly displaced greater trochanteric fracture. Patient was seen and evaluated by the orthopedics team whom recommended conservative non-operative management with outpatient follow up. He remained in hospital pending discharge to short term rehab. Review of Systems Constitutional: Reports: see HPI. Objective Last 24 Hrs of Vital Signs/I&O Vital Signs Date Time Temp Pulse Resp B/P B/P Pulse O2 O2 Flow FiO2 Mean Ox Delivery Rate 07/16 2217 97.8 07/16 2099 101.3 07/16 204 101.3 07/16 1908 118/68 07/16 1600 98.2 64 19 88/54 07/16 1515 98.2 64 19 96 Room Air 07/16 1108 70 126/60 07/16 1103 126/60 07/16 0953 73.0 100/60 07/16 0800 98.3 68 18 102/60 07/16 0800 94 Room Air 07/16 0600 98.3 68 18 10260 94 Room Air Intake & Output 07/16 1600 07/16 0800 07/16 0000 Intake Total 620 240 480 Output Total 500 Balance 120 240 480 Intake, IV 20 Intake, Oral 600 240 480 Output, Urine 500 Physical Exam General Appearance: Mild Distress Other Physical Findings: GEN: elderly man in mild distress HEENT: NCAT, PERRLA, EOMI, anicteric sclera, MMM, nasal cannula NECK: Supple, no JVD, trachea midline, no accessory respiratory muscle use CARD: Normal S1/S2 w/o m/g/r; RRR PULM: CTA bilaterally, diminished bibasilar airflow ABD: Soft, NT, mildly distended, BS+ NEURO: Delerious, tremulous, not following commands or communicating, spontaneous movement of all four extremities EXT: pulses intact, capillary refill < 2, no edema SKIN: Cool/clammy, normal color for race Current Medications: Current Medications Sig/Kim Start time Last Medication Dose Route Stop Time Status Admin Acetaminophen 1,000 MG ONCE ONE 07/16 2044 DC 07/16 N/A 1 UNIT IV 07/16 Acetaminophen 1,000 MG TID PRN 03/22 0400 AC IV Atorvastatin Calcium 80 MG DAILY 07/15 1000 AC 07/16 PO 0948 Bupropion HCl 300 MG DAILY 07/15 1000 AC 07/16 PO 0948 Cyanocobalamin/ 1 BAG ONCE ONE 07/16 2200 AC Thiamine/Pyridoxine IV 07/17 0559 Dextrose/Water 1,000 ML Duloxetine HCl 30 MG DAILY 07/15 1000 AC 07/16 PO 0948 Enoxaparin Sodium 40 MG DAILY 07/15 1000 AC 07/16 SC 0948 Gabapentin 600 MG .STK-MED ONE 07/16 0953 DC PO 07/16 0954 Gabapentin 600 MG Q6P PRN 07/15 0400 AC 07/16 PO 1604 Hydroxychloroquine 200 MG BID 07/15 1000 AC 07/16 Sulfate PO 0948 Lorazepam 2 MG Q6 07/16 2359 CAN PO Lorazepam 2 MG Q6 07/16 2359 CAN PO Lorazepam 50 MG Q24H 07/16 2215 AC Dextrose/Water 500 ML IV Lorazepam 2 MG ONE ONE 07/16 2144 DC 07/16 IV 07/16 214 221 Lorazepam 2 MG ONE ONE 07/16 2014 DC 07/16 IV 07/16 Lorazepam 2 MG ONE ONE 07/16 1945 DC 07/16 IV 07/16 194 194 Lorazepam 1 MG ONCE ONE 07/16 1915 DC 07/16 IV 07/16 191 1917 Lorazepam 0 Q1P PRN 07/15 0630 AC 07/16 IV 1810 Metoprolol Tartrate 25 MG BID 07/15 1000 DC 07/16 PO 1108 Morphine Sulfate 15 MG BID 07/15 1000 DC 07/16 PO 0947 Morphine Sulfate 2 MG Q6P PRN 07/15 0645 DC 07/16 IV 1400 Omeprazole 40 MG DAILY AC 07/15 0700 AC 07/16 PO 0628 Oxycodone HCl 10 MG .STK-MED ONE 07/16 1202 DC PO 07/16 1203 Oxycodone HCl 10 MG Q6 07/16 1200 DC 07/16 PO 1804 Oxycodone HCl 10 MG Q6P PRN 07/15 0859 DC 07/16 PO 0640 Patient Medication 1 ED ONE ONE 07/16 1345 DC Teaching ED 07/16 1346 Prednisone 7.5 MG DAILY 07/15 1000 AC 07/16 PO 0948 Sertraline HCl 100 MG DAILY 07/15 1000 AC 07/16 PO 0948 Sodium Chloride 1,000 ML BOLUS ONE 07/16 2200 AC 07/16 IV 07/16 225 2216 Sodium Chloride 500 ML BOLUS ONE 07/16 2000 DC 07/16 IV 07/168 Sodium Chloride 1,000 ML Q20H 07/15 0500 DC 07/15 IV 07/16 0059 0459 Trimethoprim/ 1 TAB BID 07/15 1000 AC 07/16 Sulfamethoxazole PO 07/18 0600 0948 Zolpidem Tartrate 5 MG AT BEDTIME NEED.. 07/15 0415 DC 07/15 PO 2215 Last 24 Hrs of Lab/Antwan Results Last 24 Hrs of Labs/Mics: Laboratory Tests 07/16/172142: Troponin I Cancelled 07/16/172129: Sodium Pending, Potassium Pending, Chloride Pending, Carbon Dioxide Pending, Anion Gap Pending, BUN Pending, Creatinine Pending, BUN/Creatinine Ratio Pending , Lactic Acid Pending, Magnesium Pending, Total Bilirubin Pending, Direct Bilirubin Pending, AST Pending, ALT Pending, Alkaline Phosphatase Pending, Troponin I Pending, Total Protein Pending, Albumin Pending, Vitamin B12 Pending, Folate Pending, TSH &T3 &Free T4 Intrp Pending 07/16/172129: Vit D 1,25-Dihyd Total Pending, 1,25 Dihydroxy Vit D2 Pending, 1,25 Dihydroxy Vit D3 Pending, CBC w Diff Pending, WBC Pending, RBC Pending, Hgb Pending, Hct Pending, MCV Pending, MCH Pending, MCHC Pending, RDW Pending, Plt Count Pending, MPV Pending, Methadone Screen Pending, Barbiturate Screen Pending, Ur Phencyclidine Scrn Pending, Amphetamines Screen Pending, U Benzodiazepines Scrn Pending, Urine Cocaine Screen Pending, Urine Cannabis Screen Pending, Urine Color Pending, Urine Clarity Pending, Urine pH Pending, Ur Specific [place] Pending, Urine Protein Pending, Urine Ketones Pending, Urine Nitrite Pending, Urine Bilirubin Pending, Urine Urobilinogen Pending, Ur Leukocyte Esterase Pending, Ur Microscopic Pending, Urine Hemoglobin Pending, Urine Glucose Pending Microbiology 07/16 2129 URINE ROUT: Urine Culture - RECD 07/16 2099 BLOOD: Blood Culture - RECD 07/16 2044 BLOOD: Blood Culture - RECD Assessment/Plan Assessment: 72 year old man with multiple medical problems significant for EtOH abuse admitted for evaluation s/p fall where he suffered a right mildly displaced greater trochanteric fracture. Patient was seen and evaluated by the orthopedics team whom recommended conservative non-operative management with outpatient follow up. He remained in hospital pending discharge to short term rehab. Patient was seen to be progressively more confused and tremulous on the evening of hospital day two and reportedly did not have any alcohol for several days. Patients daughter admits that her father has an extensive alcohol history and has been admitted for alcohol releated problems and injury multiple times before. He has never been intubated or required an ativan drip. Patient is hypotensive but otherwise not tachycardic. He is tremulous with spontaneous movement of all four extremities. Clinically her appears to have delerium from alcohol withdrawal and has not yet responsed to several high doses of intravenous ativan pushes. He is to be started on an ativan drip and intravenous fluids. RIJ TLC was placed for persistent hypotension and levophed started. Problem List -EtoH Withdrawal -Delerium, probable DTs -History of EtOH Abuse -Right acute mildly-displaced greater trochanteric fracture -Hypotension -History of CAD s/p CABG -Rheumatoid arthritis on Plaquinel / Prednisone -GERD -Peripheral neuropathy Plan -ICU admission from [facility] with Nebs PRN -Supplemental oxygen, goal > 92%, taper as tolerated -Telemetry monitoring -Strict I & Os for 24 hours -Robles catheter -Seizure / Aspiration precautions -RIJ TLC placed for hypotension -Elevate head of bed -Hold opiates / sedatives / anticholinergics for AMS -Patient Safety Monitor -Upper Extremity Soft Restraints / Collin -Avoid delerium triggers -Banana Bag -Ativan Drip -Continue Bactrim for soft tissue foot infection -Continue home meds: Cymbalta, Wellbutrin, Atorvastatin, Gabapentin, Plaquenil, omeprazole, prednisone, Zoloft -Hold metoprolol for hypotension, restart as needed -Hold ambien for altered mental status -Orthopedics following for -CRCU consult in AM -Blood / Urine cultures -Check UA/UTox for sepsis / drugs of abuse evaluation -Check B12, Folate, Vitamin D, TSHR for causes of delerium -Check Lactic, CBC, ICU, EKG, Mg baseline / sepsis evaluation -Check post-line placement chest x-ray -Follow up CT Abdomen/Pelvis/Right hip with IV contrast -Pain control with acetaminophen PRN -NPO for altered mental status -DVT PPx with lovenox -FULL CODE -Contact daughter Pau with updates or consent Problem List: 1. Fracture of greater trochanter 2. Alcohol withdrawal 3. Alcohol withdrawal delirium Pain Ratin Pain Location: None Pain Goal: Pain 4 or less Pain Plan: See assessment Tomorrow's Labs & Rationales: See assessment Jacques HANSON, [facility] 07/17/17 0622: Attending MD Review Statement Attending Statement Attending MD Statement: examined this patient, discuss w/resident/PA/DIRECT MARKETING COORDINATOR, agreed w/resident/PA/DIRECT MARKETING COORDINATOR Attending Assessment/Plan: This patient had increasing CIWA score with agitation and hallucination, hence transferred to ICU for closer monitoring and Ativan drip. Ativan drip was initiated but later discontinued as patient was sedated. Patient also had a fever spike to 101 and was hypotensive to 80's. IVF bolus given, panculture done. Right IJ placed, levophed initiated. Stress dose steroids also given as patient is on chronic prednisone. We have initiated Unasyn empirically as CXR does show left lung base infiltrate/ atelectasis. His right foot (previous osteo s/p amputation) could be another source finishing bactrim for recent cellulitis. Consider ID consult. Blood work revealed a drop in H/H to 7.7/23.6, anemia work up being done and [address] abd/pelvis- no RP hematoma or any hematoma around fracture site of right hip, also noted is a right symphysis pubic fracture. CT was reviewed with radiologist by resident.
[2017-07-16 22:23] LABS: ABSOLUTE BASOPHIL COUNT 0 /CUMM (0.0-0.2); ABSOLUTE EOSINOPHIL COUNT 0 /CUMM (0.0-0.7); ABSOLUTE GRANULOCYTE CT 4.5 /CUMM (1.4-6.5); ABSOLUTE LYMPH COUNT 0.8 /CUMM (1.2-3.4); ABSOLUTE MONOCYTE COUNT 0.8 /CUMM (0.10-0.60); BASOPHIL % 0.3 % (0.0-2.0); EOSINOPHIL % 0.3 % (0-5); GRANULOCYTE % 72.4 % (42.2-75.2); HEMATOCRIT 23.6 % (42-52); MEAN CORPUSCULAR HGB 32.9 PG (27.0-31.0); MEAN CORPUSCULAR HGB CONC 32.5 G/DL (33.0-37.0); MEAN CORPUSCULAR VOLUME 101.2 FL (80.0-94.0); MEAN PLATELET VOLUME 8.9 FL (7.4-10.4); PLATELET COUNT 126 /CUMM (130-400); RBC DISTRIBUTION WIDTH 22.8 % (11.5-14.5); RED BLOOD CELL CT 2.33 /CUMM (4.70-6.10); WHITE BLOOD CELL COUNT 6.2 /CUMM (4.8-10.8)
--- NOTE | 2017-07-16 23:06 | RADIOLOGY REPORT ---
EXAMINATION: XR PORTABLE CHEST CLINICAL INFORMATION: Assess for pulmonary disease evidence of aspiration COMPARISON: 07/15/2017 TECHNIQUE: Portable frontal view of the chest was obtained. FINDINGS: The cardiac chamber appears to be enlarging on this study. This is a lordotic film but the previous film is also lordotic. There is no convincing evidence of acute infiltrate. Persistent changes the left base are noted. IMPRESSION: Cardiac silhouette appears to be increasing. This may be in part projectional but increase cannot be excluded. The lung wu are grossly clear with the exception of the left base which show some persistent atelectasis or infiltrate. There is no failure
--- NOTE | 2017-07-16 23:52 | Proc Note Internal Medicine ---
Medicine Procedure Procedure Date: 07/16/17 Medical Procedure(s): central venous cath place Pre-Operative Diagnosis: Hypotension Acute blood loss anemia Alcohol withdrawal Delerium, AMS Post-Operative Diagnosis: Same Estimated Blood Loss: less than 50ml Anesthesia: local monitored anesthesi Procedure Findings: A time-out was completed verifying correct patient, procedure, site, positioning , and special equipment if applicable. The patient was placed in a dependent position appropriate for central line placement based on the vein to be cannulated. The patients right neck was prepped and draped in sterile fashion. 1% Lidocaine was used to anesthetize the surrounding skin area. A triple lumen 9 -Divehi Cordis catheter was introduced into the the internal jugular using the Seldinger technique and under ultrasound guidance. The catheter was threaded smoothly over the guide wire and appropriate blood return was obtained. Each lumen of the catheter was evacuated of air and flushed with sterile saline. The catheter was then sutured in place to the skin and a sterile dressing applied. Perfusion to the extremity distal to the point of catheter insertion was checked and found to be adequate. Attending Dr. Shahida Hanna was present and aided in the procedure. Estimated Blood Loss: < 50 mL The patient tolerated the procedure well and there were no complications. Post procedure chest x-ray ordered to confirm placement.
[2017-07-17] VITALS (11 sets, daily range): BP systolic 102–135; BP diastolic 57–80
--- NOTE | 2017-07-17 00:29 | RADIOLOGY REPORT ---
EXAMINATION: XR PORTABLE CHEST CLINICAL INFORMATION: Status post central line placement. COMPARISON: 07/16/2017 at 10:38 PM TECHNIQUE: Portable frontal view of the chest was obtained at 12:06 AM. FINDINGS: There is a new right internal jugular approach central venous catheter with tip in the right atrium. This is approximately 6-7 cm past the cavoatrial junction. The cardiac silhouette remains enlarged. Sternal wires are again seen. There is pulmonary venous hypertension without hanna pulmonary edema. There is retrocardiac opacity, most likely atelectasis. No pleural effusion or pneumothorax. IMPRESSION: New right internal jugular approach central venous catheter seen with tip in the right atrium, approximately 6-7 cm past the cavoatrial junction. Consider repositioning based on the intended location of the central line. No pneumothorax. Retrocardiac consolidation, more likely atelectasis than aspiration or pneumonia.
--- NOTE | 2017-07-17 01:55 | RADIOLOGY REPORT ---
EXAMINATION: XR PORTABLE CHEST CLINICAL INFORMATION: Central line placement. The catheter was pulled back 6 cm from the previous exam. COMPARISON: Chest x-ray July 17, 2017, 12:06 AM . Chest x-ray July 16, 2017 TECHNIQUE: Portable frontal view of the chest was obtained. 1:25 AM FINDINGS: Right IJ central port catheter tip at caval atrial junction. No pneumothorax. Status post median sternotomy. Heart size enlarged. There is mild central pulmonary vascular congestion without overt pulmonary edema. No large pleural effusion. There is density in the retrocardiac area due to left basilar infiltrate and/or atelectasis. IMPRESSION: 1. Central port catheter tip at cavoatrial junction. No pneumothorax. 2. Mild central vascular congestion. 3. Dense left lung base of infiltrate and/or atelectasis
--- NOTE | 2017-07-17 03:05 | CT SCAN REPORT ---
EXAMINATION: CT HEAD WITHOUT CONTRAST CLINICAL INFORMATION: Stroke. Seizure. COMPARISON: CT head July 15, 2017 TECHNIQUE: Contiguous axial imaging was performed from the skull base to vertex without intravenous administration of contrast. DLP: 1021.84 mGy-cm FINDINGS: There is no evidence of acute intracranial hemorrhage or territorial infarction. No abnormal mass effect or midline shift is seen. Fung to white matter differentiation is well preserved. No extra-axial fluid collections are identified. There is atrophy with prominence of the ventricles and the sulci and hypodensity of the periventricular white matter due to chronic small vessel ischemic disease. There is vascular calcifications of the internal carotid arteries and vertebral arteries bilaterally. The osseous structures and soft tissues are normal. The mastoid air cells and visualized portions of the paranasal sinuses are well aerated. IMPRESSION: No acute intracranial pathology.
--- NOTE | 2017-07-17 03:32 | CT SCAN REPORT ---
EXAMINATION: CT ABDOMEN AND PELVIS WITHOUT CONTRAST CLINICAL INFORMATION: Hypotension. Anemia. Concern for blood loss. COMPARISON: CT scan abdomen pelvis March 24, 2017 TECHNIQUE: Multidetector volumetric imaging was performed from the superior aspect of the liver through the pubic symphysis. Sagittal and coronal reformatted images were obtained on the technologist's workstation. DLP: 750.9 mGy-cm FINDINGS: There is breathing motion throughout the exam limiting the study. LUNG BASES: There is a large hiatal hernia. There is atelectasis at lung bases. There are small bilateral pleural effusions layering dependently. The heart size is enlarged. Status post median sternotomy. LIVER, GALLBLADDER, AND BILIARY TREE: The liver is normal in size, shape, and attenuation. No focal hepatic lesion or biliary ductal dilatation is present. The gallbladder is unremarkable with no evidence of radiopaque gallstones, gallbladder wall thickening, or obvious pericholecystic inflammatory changes. PANCREAS: There is atrophy of the pancreas. SPLEEN: Unremarkable. ADRENAL GLANDS: Unremarkable. KIDNEYS AND URETERS: 8 mm stone in the lower pole of the right kidney. This has a density measurement of 470 Hounsfield units. The stone lies approximately 13 cm from the posterior lateral skin line. There is no hydronephrosis. There is no ureteral calculi. BLADDER: Robles catheter within the bladder. Bladder is obscured by streak artifact from bilateral hip replacement. GASTROINTESTINAL TRACT: There is diverticulosis of the colon without diverticulitis. No acute change of the bowel. No bowel obstruction. No bowel wall thickening or edema. Moderate to large-volume of stool throughout the colon. The appendix is not seen. The small bowel loops are unremarkable. There is a large hiatal hernia. ABDOMINAL WALL: No significant hernia is appreciated. LYMPH NODES: Normal. VASCULAR: Atherosclerotic vascular wall calcifications of aorta and iliac vessels without aneurysm. PELVIC VISCERA: Pelvis obscured by streak artifact from bilateral hip replacement. OSSEOUS STRUCTURES: Bilateral hip replacement causes streak artifact through the pelvis. There is a comminuted fracture of the right symphysis pubis extending into the superior and inferior pubic rami with displacement. There is edema around the fracture but no large hematoma. There is multilevel degenerative spondylosis of spine with disc height narrowing and endplate spurring and facet joint arthrosis. IMPRESSION: 1. Comminuted fracture the right symphysis pubis extending into the superior and inferior pubic ramus. There is swelling around the fracture but no large hematoma. 2. Bilateral hip replacement does cause streak artifact through the pelvis. 3. Nonobstructive right renal stone. 4. Large hiatal hernia.
[2017-07-17 04:32] LABS: ABSOLUTE BASOPHIL COUNT 0 /CUMM (0.0-0.2); ABSOLUTE EOSINOPHIL COUNT 0 /CUMM (0.0-0.7); ABSOLUTE GRANULOCYTE CT 2.7 /CUMM (1.4-6.5); ABSOLUTE LYMPH COUNT 0.7 /CUMM (1.2-3.4); ABSOLUTE MONOCYTE COUNT 0.5 /CUMM (0.10-0.60); MEAN PLATELET VOLUME 8.6 FL (7.4-10.4)
[2017-07-17 04:42] LABS: BASOPHIL % 0.3 % (0.0-2.0); GRANULOCYTE % 67.2 % (42.2-75.2); MEAN CORPUSCULAR HGB 32.6 PG (27.0-31.0); MEAN CORPUSCULAR HGB CONC 31.9 G/DL (33.0-37.0); MEAN CORPUSCULAR VOLUME 102.2 FL (80.0-94.0); PLATELET COUNT 97 /CUMM (130-400); RBC DISTRIBUTION WIDTH 22.5 % (11.5-14.5); RED BLOOD CELL CT 2.04 /CUMM (4.70-6.10)
[2017-07-17 04:45] LABS: HEMATOCRIT 20.9 % (42-52)
--- NOTE | 2017-07-17 09:53 | PN- Resident CRCU ---
Ashly HANSON,Shannon 07/17/17 0953: Subjective HPI/CRCU Issues: Overnight issues: Patient was initially admitted to the general medicine floor for evaluation of a right mildly displaced greater trochanteric fracture status post fall. Patient was evaluated by the orthopedic surgeon recommended conservative management. During the night patient became agitated, hypotensive, and was found to be increasingly anemic with a drop in his H&H from 10.9 on admission to 6.7 this morning. Patient was transferred to the ICU, with central line placed and started on IV levofed and IV Ativan. Patient received 2.5 liters of normal saline. Patient was seen and examined this morning. Patient was confused however was calm. Patient reports hip pain. Patient denies any chest pain, lightheadedness , dizziness, abdominal pain, nausea/vomiting fever/chills. Patient reports right foot pain at the site of his previous amputation. Vitals: MAXIMUM TEMPERATURE 99.7, heart rate 60s to 80s, sinus rhythm, respiration rate 19-40, blood pressure 80/50 overnight, this morning has been between 100 to 115 over 50s to 60s, saturating at 100% on 3 L Labs: WBC: 4.0,H&H 76.7 and 20.9 MCV 102.2, platelet count 97, reticulocyte count 2.62 Sodium: 137, potassium 4.4, chloride 106, bicarbonate 23, BUN 18, creatinine 1.0 , lactic acid 0.8, calcium 8.3, phosphorus 3.9, magnesium 1.7, iron 28, TIBC 250 , ferritin 144, LFTs within normal limits, ammonia less than 9, LDH 765, albumin 2.8, INR 0.98 Imaging: Chest x-ray: 1. Central port catheter tip at cavoatrial junction. No pneumothorax. 2. Mild central vascular congestion. 3. Dense left lung base of infiltrate and/or atelectasis Head CT: No acute intracranial pathology. Hip x-ray Mildly displaced fracture of the greater trochanter. Status post right hip replacement. Abdominal CT pelvis 1. Comminuted fracture the right symphysis pubis extending into the superior and inferior pubic ramus. There is swelling around the fracture but no large hematoma. 2. Bilateral hip replacement does cause streak artifact through the pelvis. 3. Nonobstructive right renal stone. 4. Large hiatal hernia. Objective Vital Signs & I&O Last 8 Hrs of Vitals and I&O: Vital Signs Date Time Temp Pulse Resp B/P B/P Pulse O2 O2 Flow FiO2 Mean Ox Delivery Rate 07/17 1600 97.7 64 16 120/70 07/17 1600 97.7 64 16 120/70 100 Room Air 07/17 1400 97.9 62 16 111/65 07/17 1200 97.9 62 16 110/60 07/17 1200 99 Nasal 1.0L Cannula 07/17 1000 98.0 62 18 112/61 07/17 0800 98.4 64 26 104/66 07/17 0800 98.7 70 20 102/60 100 Nasal 3.0L Cannula 07/17 0800 100 Nasal 3.0L Cannula 07/17 0700 99.2 66 30 103/57 100 Nasal 3.0L Cannula 07/17 0600 98.5 65 15 119/61 07/17 0400 99.7 66 29 110/67 07/17 0200 98.9 72 26 125/65 07/17 0000 98.9 74 19 119/60 07/17 0000 99 Nasal 4.0L Cannula 07/16 2245 77 76/56 07/16 2218 97.8 07/16 2200 98.9 74 19 119/60 07/16 2100 101.3 07/16 2040 101.3 07/16 1908 118/68 Intake & Output 07/17 1600 07/17 0800 07/17 0000 Intake Total 740 1385 2830 Output Total 650 485 300 Balance 90 900 2530 Intake, Blood 350 100 Product Intake, IV 390 1285 2830 Intake, Oral 0 0 0 Number 0 Bowel Movements Output, Urine 650 485 300 Patient 160 lb Weight Intake & Output 07/17 1600 Intake Total 740 Output Total 650 Balance 90 Intake, Blood 350 Product Intake, IV 390 Intake, Oral 0 Number 0 Bowel Movements Output, Urine 650 Patient 160 lb Weight Exam General Appearance: well developed/nourished, no apparent distress, awake, alert and oriented x2 Head: atraumatic Respiratory: normal breath sounds, chest non-tender, no respiratory distress, lungs clear Cardiovascular: regular rate/rhythm Gastrointestinal: normal bowel sounds, non-tender, distended, mildly tense Extremities: no edema, limited range of motion, right thigh swelling > left, right thigh tense, area of ecchymosis on the inner part of right thigh, s/p right 2nd toe amputation, nonhealing ulcer, no erythema or drainage from site, tender on the right thigh Cranial Nerves: normal hearing, normal speech, PERRL Skin: ecchymosis Skin Temp/Moisture Exam: Warm/Dry Sepsis Skin Exam (color): Normal for Ethnicity Back: normal inspection, no vertebral tenderness Other Physical Findings: scrotal swelling with a large area of ecchymosis Current Medications: Current Medications Sig/Kim Start time Last Medication Dose Route Stop Time Status Admin Acetaminophen 1,000 MG ONCE ONE 07/16 2044 PR 07/16 N/A 1 UNIT IV 07/16 Acetaminophen 1,000 MG TID PRN 07/15 0400 07/17 IV 0935 Ampicillin Sodium/ 1,500 MG Q6 07/17 0242 07/17 Sulbactam Sodium IV 1330 Sodium Chloride 100 ML Atorvastatin Calcium 80 MG DAILY 07/15 1000 AC 07/17 PO 1454 Bupropion HCl 300 MG DAILY 07/15 1000 07/17 PO 1454 Cyanocobalamin/ 1 BAG ONCE ONE 07/16 2199 PR 07/16 Thiamine/Pyridoxine IV 07/17 0559 2241 Dextrose/Water 1,000 ML Dextrose/Sodium 1,000 ML Q13H 07/17 1230 07/17 Chloride IV 1453 Dextrose/Sodium 1,000 ML Q13H 07/17 1215 DC Chloride IV Dextrose/Water 1,000 ML ONCE ONE 07/17 1215 CAN IV 07/18 0134 Duloxetine HCl 30 MG DAILY 07/15 1000 AC 07/17 PO 1454 Enoxaparin Sodium 40 MG DAILY 07/15 1000 DC 07/16 SC 0948 Ferrous Sulfate 325 MG DAILY 07/17 1429 AC 07/17 PO 1631 Gabapentin 600 MG Q6P PRN 07/15 0400 07/16 PO 1604 Hydrocortisone 50 MG Q12 07/17 2200 AC Sodium Succinate IV Hydrocortisone 100 MG Q8 07/17 0045 DC 07/17 Sodium Succinate IV 07/17 1401 0519 Hydrocortisone 100 MG Q12 07/17 0042 DC Sodium Succinate IV Hydroxychloroquine 200 MG BID 07/15 1000 AC 07/17 Sulfate PO 1454 Insulin Aspart 0 TIDAC 07/17 1700 AC SC Insulin Human Regular 0 Q6 07/17 0600 DC 07/17 SC 1453 Lorazepam 2 MG .STK-MED ONE 07/17 0205 DC IM 07/17 0206 Lorazepam 2 MG .STK-MED ONE 07/17 0159 DC IM 07/17 0200 Lorazepam 2 MG Q6 07/16 2359 CAN PO Lorazepam 2 MG Q6 07/16 2359 CAN PO Lorazepam 0 Q1P PRN 07/16 2345 AC 07/17 IV 0200 Lorazepam 50 MG Q24H 07/16 2215 DC 07/16 Dextrose/Water 500 ML IV 2256 Lorazepam 2 MG ONE ONE 07/16 2145 DC 07/16 IV 07/16 2146 2213 Lorazepam 2 MG ONE ONE 07/16 2014 DC 07/16 IV 07/16 Lorazepam 2 MG ONE ONE 07/16 1945 DC 07/16 IV 07/16 194 194 Lorazepam 1 MG ONCE ONE 07/16 1915 DC 07/16 IV 07/16 191 1917 Lorazepam 0 Q1P PRN 07/15 0630 DC 07/16 IV 2258 Metoprolol Tartrate 25 MG BID 07/15 1000 DC 07/16 PO 1108 Morphine Sulfate 15 MG BID 07/15 1000 DC 07/16 PO 0947 Morphine Sulfate 2 MG Q6P PRN 07/15 0645 DC 07/16 IV 1400 Norepinephrine 4 MG Q24H 07/16 2245 DC 07/16 Dextrose/Water 250 ML IV 2245 Norepinephrine 4 MG .STK-MED ONE 07/16 2243 DC IV 07/16 2244 Omeprazole 40 MG DAILY AC 07/15 0700 DC 07/17 PO 0627 Oxycodone HCl 10 MG Q6 07/16 1200 DC 07/16 PO 1804 Pantoprazole Sodium 40 MG DAILY 07/17 1000 AC 07/17 IV 0930 Phenylephrine HCl 40 MG .STK-MED ONE 07/16 2239 DC IM 07/16 2240 Prednisone 7.5 MG DAILY 07/18 1000 AC PO Prednisone 7.5 MG DAILY 07/15 1000 DC 07/16 PO 0948 Sertraline HCl 100 MG DAILY 07/15 1000 AC 07/17 PO 1454 Sodium Chloride 1,000 ML Q10H 07/17 1200 DC IV Sodium Chloride 1,000 ML BOLUS ONE 07/16 2200 DC 07/16 IV 07/16 2259 2216 Sodium Chloride 500 ML BOLUS ONE 07/17 1999 DC 07/16 IV 07/16 Trimethoprim/ 1 TAB BID 07/15 1000 AC 07/17 Sulfamethoxazole PO 07/18 0600 1454 Zolpidem Tartrate 5 MG AT BEDTIME NEED.. 07/15 0415 DC 07/15 PO 2215 Impression/Plan Impression/Problem List Impression: 72 year old man with multiple medical problems significant for EtOH abuse admitted for evaluation s/p fall where he suffered a right mildly displaced greater trochanteric fracture. Patient was seen and evaluated by the orthopedics team whom recommended conservative non-operative management with outpatient follow up. He remained in hospital pending discharge to short term rehab. Patient was seen to be progressively more confused and tremulous on the evening of hospital day two and reportedly did not have any alcohol for several days. Patients daughter admits that her father has an extensive alcohol history and has been admitted for alcohol releated problems and injury multiple times before. He has never been intubated or required an ativan drip. Patient was found to be hypotensive but otherwise not tachycardic. He was tremulous with spontaneous movement of all four extremities. Clinically he appeared to have delerium from alcohol withdrawal and had not yet responsed to several high doses of intravenous ativan pushes. Patient was started on an ativan drip and intravenous fluids. RIJ TLC was placed for persistent hypotension and levophed started. After several hours patient's blood pressure improved and levophed was stopped early this morning. Patient also required IV Ativan drip for approximatley 2-3 hours and that was stopped as well. Due to the patient's continued drop in H/H an abdominal/pelvic CT was done to identify a potential source of bleeding. The CT showed a fracture in the right symphisis. Ortho was called to inform them of this new fracture. Per ortho, patient will continue conservative management at this time. Patient also the had scrotal bruising and swelling for which an ultrasound was performed which showed mild subcutaneous swelling but no hemorrhage or hematoma. Patient was transfused 2 units of pRBCs over the course of the day with improvement in his H/H. Patient's stool was guiac negative. A right foot xray was done due to ongoing foot pain. Patient is s/p multiple toe amputations. Foot xray showed no fracture. There was no evidence for soft tissue infection of the foot. Bactrim was discontinued. Due to patient's hypotension, AMS with an infiltrate seen on chest xray patient was suspected of having aspiration pneumonia. Patient was continued on IV Unasyn. ID was consulted for further recommendations for possible sepsis. Patient is also on chronic prednisone for rheumatoid arthritis. Due to patient's acute drop in blood pressure in the setting of stress/trauma, suspected adrenal insufficiency. High dose hydrocortisone was given. Patient's mentation improved throughout the day with minimal requirement of ativan. Patient's pain was controlled with IV tyelenol q8h. The medical team has had multiple conversations with the family ( and daughter) updating them on the patient's current clinical status and management. Problem List -Comminuted fracture the right symphysis pubis see on CT -Acute anemia, unclear etiology, likely multifactorial -EtoH Withdrawal -Delerium -History of EtOH Abuse -Right acute mildly-displaced greater trochanteric fracture -Hypotension, resolved, off pressors -History of CAD s/p CABG -Rheumatoid arthritis on Plaquinel / Prednisone, possible adrenal insufficiency -GERD -Peripheral neuropathy Plan -ICU admission from [facility] with Nebs PRN -Supplemental oxygen, goal > 92%, taper as tolerated -Telemetry monitoring -Strict I & Os for 24 hours -Robles catheter -Seizure / Aspiration precautions -RIJ TLC in place -Elevate head of bed -Hold opiates / sedatives / anticholinergics for AMS -Patient Safety Monitor -Upper Extremity Soft Restraints / Boundary -Avoid delerium triggers -Banana Bag -Continue home meds: Cymbalta, Wellbutrin, Atorvastatin, Gabapentin, Plaquenil, omeprazole, prednisone, Zoloft -Hold metoprolol for hypotension, restart as needed -Hold ambien for altered mental status -Follow up blood and urine cultures -Pain control with acetaminophen PRN -Restarted diabetic diet -DVT PPx with lovenox -FULL CODE -Contact daughter Pau with updates or consent Problem List: 1. Fracture of greater trochanter Pain Ratin Tomorrow's Labs & Rationales: cbc- anemia bep Plan DVT/Prophylaxis: mechanical Code Status: Full Code Acosta Guerin MD 07/17/17 1003: Attending MD Review Statement Attending Sign Off Other Findings: Acosta White M.D. have examined this patient, reviewed available EMR data, personally reviewed images, discussed with resident/PA/QUOTATION CLERK, discussed management plan with housestaff and nursing staff, discussed managment plan all of healthcare providers, discussed management plan with patient and/or family, agreed with resident/PA/QUOTATION CLERK. The past history and parts of the chart have been autopopulated. Impression 72-year-old man with hypotension now improved brief period of vasopressors. The differential diagnosis includes adrenal insufficiency, blood loss anemia, sepsis. Hip fracture and now noted to have a right symphysis pubis fracture. Plan -Orthopedic consultation -currently on unasyn, f/u all cultures, obtain sputum culture -Repeat chest x-ray in a.m. -Monitor CBC -We'll ask orthopedic surgery for any further imaging of the extremities warranted there was no evidence of any retroperitoneal hematoma however -Endocrinology consultation and steroids for adrenal insufficiency/stress dose DVT prophylaxis at all times with Alps TTS 45 min
--- NOTE | 2017-07-17 12:17 | Cons- Endocrinology ---
General Information and HPI Consulting Request Date of Consult: 07/17/17 Requested By: ICU team Reason for Consult: aderenal insufficiency, hx of chronic steroid use due to RA and chronic pain medication. Source of Information: family, old records Exam Limitations: confusion History of Present Illness: 72 y/o male with PMH CAD s/p CABG, HTN, pulmonary hypertension, GERD, diverticulosis, nephrolithiasis, depression, peripheral neuropathy, rheumatoid arthritis on prednisone and plaquenil, avascular necrosis s/p bilateral hip replacements and on pain medication chronically, was brought to ED by ambulance with chief complaint of right hip pain after fall. X-ray showed mildly displaced fracture of the greater trochanter and he was admitted to the floor. However, he had fever of 101.3 last night and he was found to be hypotensive. Then he was transfered to ICU and received Hydrocortisone 100 mg iv . Now his BP has been better. Allergies/Medications Allergies: Coded Allergies: No Known Allergies (03/05/17) Home Med List: Atorvastatin Calcium (Lipitor) 80 MG TABLET 1 TAB PO DAILY hld (Reported) Bupropion HCl (Wellbutrin XL) 300 MG TAB.ER.24H 1 TAB PO DAILY MENTAL HEALTH (Reported) Cyanocobalamin (Vitamin B-12) 1,000 MCG TABLET 1 TAB PO DAILY VITAMIN SUPPORT (Reported) Diclofenac Sodium (Voltaren) 1 % GEL..GRAM. 1 MAIKEL TOP 4 TIMES/DAY PRN Pain Duloxetine Hydrochloride (Cymbalta) 30 MG CAPSULE.DR 1 CAP PO DAILY nerve pain (Reported) Ferrous Sulfate 325 MG (65 MG IRON) TABLET 1 TAB PO BID SUPPLEMENT (Reported) Folic Acid 1 MG TABLET 1 MG PO DAILY Vitamin Gabapentin 600 MG TABLET 1 TAB PO Q6H PRN NERVE PAIN (Reported) Hydroxychloroquine Sulfate 200 MG TABLET 1 TAB PO BID Rheumatoid Arthritis ( Reported) Metoprolol Tartrate 25 MG TABLET 1 TAB PO DAILY HEART/BP (Reported) Morphine Sulfate 15 MG TABLET 1 TAB PO Q12H PAIN (Reported) Oxycodone HCl 10 MG TABLET 1 TAB PO Q4 HRS NEEDED PRN PAIN (Reported) Pantoprazole Sodium (Protonix) 40 MG TABLET.DR 1 TAB PO PRN GI (Reported) Prednisone 5 MG TABLET 1.5 TAB PO DAILY RA (Reported) Sertraline HCl (Zoloft) 100 MG TABLET 1 TAB PO DAILY MENTAL HEALTH (Reported) Sulfamethoxazole/Trimethoprim (Bactrim Ds Tablet) 800 MG-160 MG TABLET 1 TAB PO BID cellulitis Zolpidem Tartrate (Ambien) 5 MG TABLET 1 TAB PO QPMP PRN INSOMNIA (Reported) Review of Systems Review of Systems Constitutional: Reports: see HPI (unable to provide information.). Past History Travel History Traveled to [place] past 21 day No Medical History Blood Transfusion Hx: Yes Neurological: NONE EENT: NONE Cardiovascular: CAD, hypertension, hyperlipidemia, mitral regurgitation Respiratory: NONE Gastrointestinal: GERD, hiatal hernia, umbilical hernia, diverticulosis coli hx colon TA/TVA Hepatic: NONE Renal: nephrolithiasis Musculoskeletal: chronic back pain, degen joint disease, falls, osteoarthritis, rheumatoid arthritis, hx osteo R foot Psychiatric: alcohol dependence (prev EtOH abuse), depression Blood Disorders: anemia, B12 deficiency hx Fe def Cancer(s): prostate cancer PUGGER HELPER/Reproductive: NONE Surgical History Surgical History: appendectomy, CABG (x3), cataract removal, hip replacement ( bilateral), prostatectomy Family History Relations & Conditions If Any: FATHER, , Age 81. FH: prostate cancer MOTHER (smoker). , Age 77; Cause: COPD (chronic obstructive pulmonary disease). Psychosocial History Who Do You Live With? spouse, child Services at Home: None Primary Language: Greenlandic Smoking Status: Former Smoker Living Will? no Power of Home Health Lpn/HCP? no Functional Ability ADLs Independent: dressing, eating, toileting, bathing. Ambulation: independent, cane IADLs Independent: shopping, housework, finances, food prep, telephone, transportation , medication admin. Exam & Diagnostic Data Last 24 Hrs of Vital Signs/I&O Vital Signs Date Time Temp Pulse Resp B/P B/P Pulse O2 O2 Flow FiO2 Mean Ox Delivery Rate 07/17 1000 98.0 62 18 112/61 07/17 0800 98.4 64 26 104/66 07/17 0700 99.2 66 30 103/57 100 Nasal 3.0L Cannula 07/17 0600 98.5 65 15 119/61 07/17 0400 99.7 66 29 110/67 07/17 0200 98.9 72 26 125/65 07/17 0000 98.9 74 19 119/60 07/17 0000 99 Nasal 4.0L Cannula 07/16 2245 77 76/56 07/168 97.8 07/16 2200 98.9 74 19 119/60 07/16 2100 101.3 07/16 2040 101.3 07/16 1908 118/68 07/16 1600 98.2 64 19 88/54 07/16 1515 98.2 64 19 96 Room Air Intake & Output 07/17 1600 07/17 0800 07/17 0000 Intake Total 1385 2830 Output Total 485 300 Balance 900 2530 Intake, Blood 100 Product Intake, IV 1285 2830 Intake, Oral 0 0 Output, Urine 485 300 Patient 160 lb Weight Physical Exam General Appearance: lethargic Neck: normal inspection Respiratory: decreased breath sounds Cardiovascular: regular rate/rhythm Gastrointestinal: distention Extremities: no edema Labs/Antwan Results: Laboratory Tests 07/17 07/17 07/17 0500 0400 0400 Chemistry Lactic Acid (0.7 - 2.1 mmol/L) 0.8 Ferritin (17.9 - 464 ng/mL) 144.0 Prolactin (3.7 - 17.9 ng/mL) 27.0 H Hematology Haptoglobin Pending 07/17 07/16 0400 2143 Chemistry Sodium (137 - 145 mmol/L) 137 Potassium (3.5 - 5.1 mmol/L) 4.4 Chloride (98 - 107 mmol/L) 106 Carbon Dioxide (22 - 30 mmol/L) 23 Anion Gap (5 - 16) 8 BUN (9 - 20 mg/dL) 18 Creatinine (0.7 - 1.2 mg/dL) 1.0 Estimated GFR (>60 ml/min) > 60 Glucose (65 - 99 mg/dL) 108 H Calcium (8.4 - 10.2 mg/dL) 8.3 L Phosphorus (2.5 - 4.5 mg/dL) 3.9 Magnesium (1.6 - 2.3 mg/dL) 1.7 Iron (49 - 181 ug/dL) 28 L TIBC (261 - 462 ug/dL) 250 L Total Bilirubin (0.2 - 1.3 mg/dL) 0.8 AST (17 - 59 U/L) 26 ALT (21 - 72 U/L) 28 Ammonia (9 - 30 umol/L) < 9 L Lactate Dehydrogenase (313 - 618 U/L) 765 H Troponin I Cancelled Albumin (3.5 - 5.0 g/dL) 2.8 L Cortisol AM Sample (4.46 - 22.7 ug/dL) 7.0 Hematology CBC w Diff MAN DIFF ORDERED WBC (4.8 - 10.8 /CUMM) 4.0 L RBC (4.70 - 6.10 /CUMM) 2.04 L Hgb (14.0 - 18.0 G/DL) 6.7 *L Hct (42 - 52 %) 20.9 L MCV (80.0 - 94.0 FL) 102.2 H MCH (27.0 - 31.0 PG) 32.6 H MCHC (33.0 - 37.0 G/DL) 31.9 L RDW (11.5 - 14.5 %) 22.5 H Plt Count (130 - 400 /CUMM) 97 L MPV (7.4 - 10.4 FL) 8.6 Gran % (42.2 - 75.2 %) 67.2 Lymphocytes % (20.5 - 51.1 %) 18.4 L Monocytes % (1.7 - 9.3 %) 13.1 H Eosinophils % (0 - 5 %) 1.0 Basophils % (0.0 - 2.0 %) 0.3 Absolute Granulocytes (1.4 - 6.5 /CUMM) 2.7 Absolute Lymphocytes (1.2 - 3.4 /CUMM) 0.7 L Absolute Monocytes (0.10 - 0.60 /CUMM) 0.5 Absolute Eosinophils (0.0 - 0.7 /CUMM) 0 Absolute Basophils (0.0 - 0.2 /CUMM) 0 Platelet Estimate (ADEQUATE) DECREASED Polychromasia 1+ Hypochromic-Microcytic 2+ Poikilocytosis 1+ Basophilic Stippling Anisocytosis 1+ Ovalocytes Schistocytes Retic Count (0.5 - 2.0 %) 2.62 H 07/16 07/16 2130 2130 Chemistry Sodium (137 - 145 mmol/L) 137 Potassium (3.5 - 5.1 mmol/L) 4.7 Chloride (98 - 107 mmol/L) 103 Carbon Dioxide (22 - 30 mmol/L) 23 Anion Gap (5 - 16) 10 BUN (9 - 20 mg/dL) 20 Creatinine (0.7 - 1.2 mg/dL) 1.2 Estimated GFR (>60 ml/min) 60 BUN/Creatinine Ratio (7 - 25 %) 16.7 Lactic Acid (0.7 - 2.1 mmol/L) 2.2 H Magnesium (1.6 - 2.3 mg/dL) 1.6 Total Bilirubin (0.2 - 1.3 mg/dL) 0.7 Direct Bilirubin (< 0.4 mg/dL) 0.5 H AST (17 - 59 U/L) 22 ALT (21 - 72 U/L) 27 Alkaline Phosphatase (< 127 U/L) 86 Troponin I (<0.11 ng/ml) < 0.01 Total Protein (6.3 - 8.2 g/dL) 6.0 L Albumin (3.5 - 5.0 g/dL) 3.2 L Vitamin B12 (239 - 931 pg/mL) 407 Vit D 1,25-Dihyd Total Pending 1,25 Dihydroxy Vit D2 Pending 1,25 Dihydroxy Vit D3 Pending Folate (2.76 - 20.0 ng/mL) 17.7 Free T4 (0.78 - 2.44 ng/dL) 0.89 Total T3 (0.97 - 1.69 ng/mL) 0.72 L TSH &T3 &Free T4 Intrp (0.27 - 4.20 uIU/mL) 5.230 H Hematology CBC w Diff NO MAN DIFF REQ WBC (4.8 - 10.8 /CUMM) 6.2 RBC (4.70 - 6.10 /CUMM) 2.33 L Hgb (14.0 - 18.0 G/DL) 7.7 L Hct (42 - 52 %) 23.6 L MCV (80.0 - 94.0 FL) 101.2 H MCH (27.0 - 31.0 PG) 32.9 H MCHC (33.0 - 37.0 G/DL) 32.5 L RDW (11.5 - 14.5 %) 22.8 H Plt Count (130 - 400 /CUMM) 126 L MPV (7.4 - 10.4 FL) 8.9 Gran % (42.2 - 75.2 %) 72.4 Lymphocytes % (20.5 - 51.1 %) 13.4 L Monocytes % (1.7 - 9.3 %) 13.6 H Eosinophils % (0 - 5 %) 0.3 Basophils % (0.0 - 2.0 %) 0.3 Absolute Granulocytes (1.4 - 6.5 /CUMM) 4.5 Absolute Lymphocytes (1.2 - 3.4 /CUMM) 0.8 L Absolute Monocytes (0.10 - 0.60 /CUMM) 0.8 H Absolute Eosinophils (0.0 - 0.7 /CUMM) 0 Absolute Basophils (0.0 - 0.2 /CUMM) 0 Toxicology Urine Opiates Screen (>2000 NG/ML) > 4000.00 H Methadone Screen (>300 NG/ML) 66 Barbiturate Screen (>200 NG/ML) < 60 Ur Phencyclidine Scrn (>25 NG/ML) < 6.00 Amphetamines Screen (>1000 NG/ML) 465 U Benzodiazepines Scrn (>200 NG/ML) 119 Urine Cocaine Screen (>300 NG/ML) < 50 Urine Cannabis Screen (>50 NG/ML) 48.30 Urines Urine Color (YEL,AMB,STR) YEL Urine Clarity (CLEAR) CLEAR Urine pH (5.0 - 8.0) 6.0 Ur Specific [place] (1.001 - 1.035) >= 1.030 Urine Protein (NEG,<30 MG/DL) TRACE H Urine Ketones (NEG) NEG Urine Nitrite (NEG) NEG Urine Bilirubin (NEG) NEG Urine Urobilinogen (0.1 - 1.0 EU/dl) 1.0 Ur Leukocyte Esterase (NEG) TRACE H Ur Microscopic SEDIMENT EXAMINED Urine RBC (0 - 5 /HPF) RARE Urine WBC (0 - 2 /HPF) RARE Ur Epithelial Cells (NONE,FEW) RARE Urine Mucus (FEW,NONE) RARE Urine Hemoglobin (NEG) NEG Urine Glucose (N MG/DL) NEG Assessment/Plan Assessment/Plan 72 y/o male with PMH CAD s/p CABG, HTN, pulmonary hypertension, GERD, diverticulosis, nephrolithiasis, depression, peripheral neuropathy, rheumatoid arthritis on prednisone and plaquenil, avascular necrosis s/p bilateral hip replacements and on pain medication chronically, was admitted for right greater trochanter fracture after mechanical fall. He was hypotensive last night. His BP improved after he received stress dose of steroid. 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 plan: 1. steroid dose of steroid-- hydrocortisone 50mg iv every 12 hours today; 2. monitor FSGs, vital sign and electrolytes; 3. consider IVF-- D5 NS at 75 ml/hour; 4. repeat TFT aand check thyroid antibody; 5. evaluation and treatment of steroid induced osteopororsis as outpatient. will follow. Consult Acknowledgment - Thank you for your consult request.
[2017-07-17 14:07] LABS: ABSOLUTE BASOPHIL COUNT 0 /CUMM (0.0-0.2); ABSOLUTE EOSINOPHIL COUNT 0 /CUMM (0.0-0.7); ABSOLUTE LYMPH COUNT 0.2 /CUMM (1.2-3.4); ABSOLUTE MONOCYTE COUNT 0.2 /CUMM (0.10-0.60); EOSINOPHIL % 0 % (0-5)
[2017-07-17 14:12] LABS: ABSOLUTE GRANULOCYTE CT 2.5 /CUMM (1.4-6.5); BASOPHIL % 0.1 % (0.0-2.0); GRANULOCYTE % 84.2 % (42.2-75.2); HEMATOCRIT 22.3 % (42-52); MEAN CORPUSCULAR HGB 33.4 PG (27.0-31.0); MEAN CORPUSCULAR HGB CONC 33.3 G/DL (33.0-37.0); MEAN CORPUSCULAR VOLUME 100.2 FL (80.0-94.0); MEAN PLATELET VOLUME 8.4 FL (7.4-10.4); PLATELET COUNT 83 /CUMM (130-400); RBC DISTRIBUTION WIDTH 21.8 % (11.5-14.5); RED BLOOD CELL CT 2.23 /CUMM (4.70-6.10)
[2017-07-17 14:15] LABS: PT 10.7 SEC (9.4-12.5); PTT 34 SEC (25-37)
--- NOTE | 2017-07-17 15:48 | ULTRASOUND REPORT ---
EXAMINATION: US SCROTUM CLINICAL INFORMATION: Scrotal hematoma status post fall COMPARISON: None TECHNIQUE: A sonogram of the scrotum was performed assessing webber-scale appearance and color Doppler flow. Spectral analysis and Doppler interrogation was performed. FINDINGS: RIGHT: Right testicle measures 2.9 x 1.7 x 1.7 cm,. Parenchymal echotexture is normal. No focal testicular parenchymal lesions are visualized. Normal symmetric intratesticular flow is visualized. Right epididymal head is normal in size. No right hydrocele or varicocele is seen. There is mild subcutaneous swelling. LEFT: Left testicle measures 2.9 x 1.8 x 1.8 cm,. Parenchymal echotexture is normal. No focal testicular parenchymal lesions are visualized. Normal symmetric intratesticular flow is visualized. Left epididymal head is normal in size. No left hydrocele or varicocele is seen. Mild subcutaneous swelling. IMPRESSION: No intratesticular mass, no hematoma, mild subcutaneous swelling.
--- NOTE | 2017-07-17 15:51 | RADIOLOGY REPORT ---
EXAMINATION: XR FOOT, RIGHT CLINICAL INFORMATION: Concern for fracture. COMPARISON: Right foot radiograph 07/11/2017. TECHNIQUE: 2 views of the right foot. FINDINGS: There is surgical absence of the second toes and distal aspect of the second metatarsal. There is also surgical absence of the distal and middle phalanx of the third toe. No fracture. Stable hallux valgus deformity. Mild enthesopathy at the Achilles insertion and a small plantar calcaneal bone spur. IMPRESSION: Stable appearance of the right foot. No evidence of fracture.
[2017-07-17 21:31] LABS: ABSOLUTE BASOPHIL COUNT 0 /CUMM (0.0-0.2); ABSOLUTE EOSINOPHIL COUNT 0 /CUMM (0.0-0.7); ABSOLUTE GRANULOCYTE CT 2.5 /CUMM (1.4-6.5); ABSOLUTE LYMPH COUNT 0.5 /CUMM (1.2-3.4); ABSOLUTE MONOCYTE COUNT 0.4 /CUMM (0.10-0.60); BASOPHIL % 0.2 % (0.0-2.0); EOSINOPHIL % 0 % (0-5); GRANULOCYTE % 73.2 % (42.2-75.2); HEMATOCRIT 25.3 % (42-52); MEAN CORPUSCULAR HGB 32.3 PG (27.0-31.0); MEAN CORPUSCULAR HGB CONC 33.1 G/DL (33.0-37.0); MEAN CORPUSCULAR VOLUME 97.7 FL (80.0-94.0); PLATELET COUNT 88 /CUMM (130-400); RBC DISTRIBUTION WIDTH 22.1 % (11.5-14.5); RED BLOOD CELL CT 2.59 /CUMM (4.70-6.10); WHITE BLOOD CELL COUNT 3.5 /CUMM (4.8-10.8)
[2017-07-18] VITALS (13 sets, daily range): BP systolic 113–164; BP diastolic 60–78
[2017-07-18 05:42] LABS: ABSOLUTE BASOPHIL COUNT 0 /CUMM (0.0-0.2); ABSOLUTE EOSINOPHIL COUNT 0 /CUMM (0.0-0.7); ABSOLUTE GRANULOCYTE CT 2.8 /CUMM (1.4-6.5); ABSOLUTE LYMPH COUNT 0.3 /CUMM (1.2-3.4); ABSOLUTE MONOCYTE COUNT 0.3 /CUMM (0.10-0.60); BASOPHIL % 0.1 % (0.0-2.0); EOSINOPHIL % 0 % (0-5); GRANULOCYTE % 80.8 % (42.2-75.2); HEMATOCRIT 25.6 % (42-52); MEAN CORPUSCULAR HGB 32.7 PG (27.0-31.0); MEAN CORPUSCULAR HGB CONC 33.4 G/DL (33.0-37.0); MEAN CORPUSCULAR VOLUME 97.8 FL (80.0-94.0); PLATELET COUNT 99 /CUMM (130-400); RBC DISTRIBUTION WIDTH 22.3 % (11.5-14.5); RED BLOOD CELL CT 2.62 /CUMM (4.70-6.10); WHITE BLOOD CELL COUNT 3.4 /CUMM (4.8-10.8)
--- NOTE | 2017-07-18 07:59 | Cons- Infect Disease ---
General Information and HPI Consulting Request Date of Consult: 07/18/17 Requested By: Huma Gardiner MD Reason for Consult: Fever/rule out infection of the right foot Source of Information: patient, old records Exam Limitations: clinical condition History of Present Illness: This is a 72-year-old man with a history of coronary artery disease, status post CABG, hypertension, CHF, rheumatoid arthritis, maintained on steroids and Plaquenil, with avascular necrosis of both hips, status post bilateral hip replacements, prostate cancer, status post TURP, thyroid cancer, status post left partial thyroidectomy, iron and vitamin B12 deficiency, depression, alcohol abuse, status post multiple falls and chronic pain, maintained on Oxycodone, status post amputation of the right second toe and partial amputation of the right third toe, recently treated with a 4 week course of Unasyn for residual osteomyelitis of the right second toe, seen in the emergency room 3 days prior to admission because of concern of an infection on his right third toe, found to be afebrile with an x-ray negative for osteomyelitis and discharged on Bactrim, admitted on July 15 after a fall at home resulting in pain in his right hip. On admission he was afebrile. Laboratory data revealed a white blood count of 4000, BUN/creatinine 15 and 0.8, with normal liver enzymes, proBNP 2160. X-ray of the right hip revealed a mildly displaced fracture of the greater trochanter. Chest x-ray was negative. CT of the head was negative for any acute process. He was continued on Bactrim. He was evaluated by Orthopedics who recommended conservative management for the fracture. In the evening of September 15 he was found to be disoriented, hallucinating and tremulous, with a fever to 101.4 and a drop in his blood pressure to 100/55, raising concern for DTs. He was transferred to the ICU and begun on Ativan. A right IJ was placed and he was begun on Levophed and stress steroids with Hydrocortisone. He was begun on Unasyn for possible aspiration, with discontinuation of the Bactrim. His H&H was noted to decrease to 6.7/21 and he was transfused [address] of the abdomen and pelvis was performed and revealed a comminuted fracture of the right symphysis pubis extending into the superior and inferior pubic rami. A repeat CT of the head was negative. He defervesced (on steroids) and his blood pressure improved, with discontinuation of the pressors. His respiratory status has been stable and he is currently on room air. He has been agitated and confused. At present he does complain of pain in the back, right hip and abdomen. Allergies/Medications Allergies: Coded Allergies: No Known Allergies (03/05/17) Home Med List: Atorvastatin Calcium (Lipitor) 80 MG TABLET 1 TAB PO DAILY hld (Reported) Bupropion HCl (Wellbutrin XL) 300 MG TAB.ER.24H 1 TAB PO DAILY MENTAL HEALTH (Reported) Cyanocobalamin (Vitamin B-12) 1,000 MCG TABLET 1 TAB PO DAILY VITAMIN SUPPORT (Reported) Diclofenac Sodium (Voltaren) 1 % GEL..GRAM. 1 MAIKEL TOP 4 TIMES/DAY PRN Pain Duloxetine Hydrochloride (Cymbalta) 30 MG CAPSULE.DR 1 CAP PO DAILY nerve pain (Reported) Ferrous Sulfate 325 MG (65 MG IRON) TABLET 1 TAB PO BID SUPPLEMENT (Reported) Folic Acid 1 MG TABLET 1 MG PO DAILY Vitamin Gabapentin 600 MG TABLET 1 TAB PO Q6H PRN NERVE PAIN (Reported) Hydroxychloroquine Sulfate 200 MG TABLET 1 TAB PO BID Rheumatoid Arthritis ( Reported) Metoprolol Tartrate 25 MG TABLET 1 TAB PO DAILY HEART/BP (Reported) Morphine Sulfate 15 MG TABLET 1 TAB PO Q12H PAIN (Reported) Oxycodone HCl 10 MG TABLET 1 TAB PO Q4 HRS NEEDED PRN PAIN (Reported) Pantoprazole Sodium (Protonix) 40 MG TABLET.DR 1 TAB PO PRN GI (Reported) Prednisone 5 MG TABLET 1.5 TAB PO DAILY RA (Reported) Sertraline HCl (Zoloft) 100 MG TABLET 1 TAB PO DAILY MENTAL HEALTH (Reported) Sulfamethoxazole/Trimethoprim (Bactrim Ds Tablet) 800 MG-160 MG TABLET 1 TAB PO BID cellulitis Zolpidem Tartrate (Ambien) 5 MG TABLET 1 TAB PO QPMP PRN INSOMNIA (Reported) Past History Travel History Traveled to [place] past 21 day No Medical History Blood Transfusion Hx: Yes Neurological: NONE EENT: NONE Cardiovascular: CAD, CHF, hypertension, hyperlipidemia, mitral regurgitation Respiratory: NONE Gastrointestinal: GERD, hiatal hernia, umbilical hernia, diverticulosis coli hx colon TA/TVA Hepatic: NONE Renal: nephrolithiasis Musculoskeletal: chronic back pain, degen joint disease, falls, osteoarthritis, rheumatoid arthritis, hx osteo R foot, avascular necrosis both hips Psychiatric: alcohol dependence (prev EtOH abuse), depression Blood Disorders: anemia, B12 deficiency Fe deficiency Cancer(s): prostate cancer CARD PUNCHER/Reproductive: NONE History of MRSA: No History of VRE: No History of CDIFF: No Isolation History: Standard Influenza Vaccine: 03/26/17 Surgical History Surgical History: appendectomy, CABG (x3), cataract removal, hip replacement ( bilateral), prostatectomy, status post partial thyroidectomy Family History Relations & Conditions If Any: FATHER, , Age 81. FH: prostate cancer MOTHER (smoker). , Age 77; Cause: COPD (chronic obstructive pulmonary disease). Psychosocial History Who Do You Live With? spouse, child Services at Home: None Primary Language: Bermudian Smoking Status: Former Smoker Living Will? no Power of Energy Conservation Director/HCP? no Functional Ability ADLs Independent: dressing, eating, toileting, bathing. Ambulation: independent, cane IADLs Independent: shopping, housework, finances, food prep, telephone, transportation , medication admin. Review of Systems Review of Systems All Other Systems: Reviewed and Negative Exam & Diagnostic Data Last 24 Hrs of Vital Signs/I&O Vital Signs Date Time Temp Pulse Resp B/P B/P Pulse O2 O2 Flow FiO2 Mean Ox Delivery Rate 07/18 0600 80 32 145/71 07/18 0400 97.1 78 20 142/64 07/18 0400 96 Room Air 07/18 0200 74 30 144/72 07/18 0000 97.1 75 24 140/60 03 0000 95 Room Air 07/18 0000 97.1 75 24 140/60 95 Room Air 07/17 2206 98.7 07/17 2200 98.7 79 22 135/80 03 2200 98.8 85 22 135/80 99 Room Air 07/17 1600 97.7 64 16 120/70 03 1600 97.7 64 16 120/70 100 Room Air 07/17 1600 100 Room Air 07/17 1400 97.9 62 16 111/65 07/17 1200 97.9 62 16 110/60 07/17 1200 99 Nasal 1.0L Cannula 07/17 1000 98.0 62 18 112/61 03 0800 98.4 64 26 104/66 07/17 0800 98.7 70 20 102/60 100 Nasal 3.0L Cannula 07/17 0800 100 Nasal 3.0L Cannula Intake & Output 07/18 0800 07/18 0000 07/17 1600 Intake Total 350 330 740 Output Total 445 600 650 Balance -95 -270 90 Intake, Blood 350 Product Intake, IV 300 280 390 Intake, Oral 50 50 0 Number 1 1 0 Bowel Movements Output, Urine 445 600 650 Patient 160 lb Weight Physical Exam Other Physical Findings: Afebrile on steroids. He is mildly agitated and confused but in no acute distress. Skin reveals no rash. HEENT negative. Neck is supple with no adenopathy; right IJ triple-lumen catheter with no inflammation at the site but with dressing loose. Lungs decreased breath sounds at the left base. Heart regular rhythm with no murmur. Abdomen is soft, nontender with positive bowel sounds. Back no CVA tenderness. Extremities no cyanosis, clubbing or edema; status post right second toe and partial right third toe amputations, with minimal erythema noted at the distal aspect of the right third toe. Neuro is without focality. Robles catheter is in place. Last 24 Hours of Lab Results: Laboratory Tests 07/18 07/17 0415 5 Chemistry Sodium (137 - 145 mmol/L) 140 Potassium (3.5 - 5.1 mmol/L) 4.0 Chloride (98 - 107 mmol/L) 106 Carbon Dioxide (22 - 30 mmol/L) 23 Anion Gap (5 - 16) 10 BUN (9 - 20 mg/dL) 11 Creatinine (0.7 - 1.2 mg/dL) 0.7 Estimated GFR (>60 ml/min) > 60 Glucose (65 - 99 mg/dL) 92 Calcium (8.4 - 10.2 mg/dL) 8.8 Phosphorus (2.5 - 4.5 mg/dL) 3.8 Magnesium (1.6 - 2.3 mg/dL) 1.6 Total Bilirubin (0.2 - 1.3 mg/dL) 1.1 AST (17 - 59 U/L) 23 ALT (21 - 72 U/L) 29 Albumin (3.5 - 5.0 g/dL) 2.8 L TSH (0.270 - 4.200 uIU/mL) 1.220 Free T4 (0.78 - 2.44 ng/dL) 0.73 L Hematology CBC w Diff NO MAN DIFF REQ NO MAN DIFF REQ WBC (4.8 - 10.8 /CUMM) 3.4 L 3.5 L RBC (4.70 - 6.10 /CUMM) 2.62 L 2.59 L Hgb (14.0 - 18.0 G/DL) 8.6 L 8.4 L Hct (42 - 52 %) 25.6 L 25.3 L MCV (80.0 - 94.0 FL) 97.8 H 97.7 H MCH (27.0 - 31.0 PG) 32.7 H 32.3 H MCHC (33.0 - 37.0 G/DL) 33.4 33.1 RDW (11.5 - 14.5 %) 22.3 H 22.1 H Plt Count (130 - 400 /CUMM) 99 L 88 L MPV (7.4 - 10.4 FL) 8.0 8.0 Gran % (42.2 - 75.2 %) 80.8 H 73.2 Lymphocytes % (20.5 - 51.1 %) 9.2 L 14.6 L Monocytes % (1.7 - 9.3 %) 9.9 H 12.0 H Eosinophils % (0 - 5 %) 0 0 Basophils % (0.0 - 2.0 %) 0.1 0.2 Absolute Granulocytes (1.4 - 6.5 /CUMM) 2.8 2.5 Absolute Lymphocytes (1.2 - 3.4 /CUMM) 0.3 L 0.5 L Absolute Monocytes (0.10 - 0.60 /CUMM) 0.3 0.4 Absolute Eosinophils (0.0 - 0.7 /CUMM) 0 0 Absolute Basophils (0.0 - 0.2 /CUMM) 0 0 Immunology Thyroglobulin Antibody (< 61 U/mL) Pending Thyroid Peroxidase Ab (< 61 U/mL) Pending 07/17 1250 Coagulation PT (9.4 - 12.5 SEC) 10.7 INR (0.90 - 1.17) 0.98 APTT (25 - 37 SEC) 34 Hematology CBC w Diff NO MAN DIFF REQ WBC (4.8 - 10.8 /CUMM) 3.0 L RBC (4.70 - 6.10 /CUMM) 2.23 L Hgb (14.0 - 18.0 G/DL) 7.4 *L Hct (42 - 52 %) 22.3 L MCV (80.0 - 94.0 FL) 100.2 H MCH (27.0 - 31.0 PG) 33.4 H MCHC (33.0 - 37.0 G/DL) 33.3 RDW (11.5 - 14.5 %) 21.8 H Plt Count (130 - 400 /CUMM) 83 L MPV (7.4 - 10.4 FL) 8.4 Gran % (42.2 - 75.2 %) 84.2 H Lymphocytes % (20.5 - 51.1 %) 7.5 L Monocytes % (1.7 - 9.3 %) 8.2 Eosinophils % (0 - 5 %) 0 Basophils % (0.0 - 2.0 %) 0.1 Absolute Granulocytes (1.4 - 6.5 /CUMM) 2.5 Absolute Lymphocytes (1.2 - 3.4 /CUMM) 0.2 L Absolute Monocytes (0.10 - 0.60 /CUMM) 0.2 Absolute Eosinophils (0.0 - 0.7 /CUMM) 0 Absolute Basophils (0.0 - 0.2 /CUMM) 0 Last 24 Hours of [place] Results: Blood cultures 2 July 16 negative Urine culture July 16 negative Diagnostic Data Recent Imaging Findings: Chest x-ray July 17 reveals mild central vascular congestion with a retrocardiac density X-ray of the right foot July 17 no evidence of fracture or osteomyelitis Testicular ultrasound July [address] of the head July [address] of the abdomen and pelvis July 17 reveals a comminuted fracture of the right symphysis pubis extending into the superior and inferior pubic rami; nonobstructive right renal stone; atelectasis at both lung bases with small bilateral pleural effusions Assessment/Plan Assessment/Plan Impression: This is a 72-year-old man with multiple medical problems including rheumatoid arthritis, maintained on steroids and Plaquenil, status post bilateral hip replacement, alcohol abuse, chronic pain, status post multiple falls, status post amputation of the right second toe and partial amputation of the right third toe, recently treated with a 4 week course of Unasyn for residual osteomyelitis of the right second toe, begun on Bactrim 3 days prior to admission for a possible cellulitis of the right third toe, admitted on July 15 after a fall at home resulting in pain in his right hip, found to be afebrile with a normal white blood cell count and with a mildly displaced fracture of the right greater trochanter, with his hospital course complicated by a fever, hypotension, hallucinations and tremulousness suggestive of DVTs, and anemia, requiring blood transfusions, now on Unasyn for possible aspiration pneumonia. His recent deterioration may well be secondary to DTs, and he appears to have improved to some extent, with his blood pressure now stable off pressors and with his temperatures now normal (on stress steroids). His respiratory status has remained stable, with no definite consolidation on chest x-ray or CT scan, and he has no respiratory symptoms; therefore do not suspect pneumonia. He has no evidence for cellulitis of the right foot and, therefore, do not feel he requires antibiotics for this. Suggestion: 1. Further management of his DTs per the ICU team 2. Remove right IJ triple-lumen catheter as soon as possible 3. Further management of his steroids per Endocrinology 4. Orthopedic follow-up regarding his right symphysis pubic fracture 5. Discontinue Unasyn and follow off antibiotics Consult Acknowledgment - Thank you for your consult request.
--- NOTE | 2017-07-18 09:29 | PN- Resident CRCU ---
Dc HANSON,Dede 07/18/17 0928: Subjective HPI/CRCU Issues: Alcohol withdrawal on lorazepam drip Opiate-induced adrenal insufficiency Left femoral greater trochanter fracture Comminuted fracture the right symphysis pubis extending into the superior & inferior pubic ramus Acute blood loss anemia - status post 2 units PRBC 24 Hour Events: Patient remained agitated overnight. Objective Vital Signs & I&O Last 8 Hrs of Vitals and I&O: Vital Signs Date Time Temp Pulse Resp B/P B/P Pulse O2 O2 Flow FiO2 Mean Ox Delivery Rate 07/18 1200 98.5 75 24 132/68 07/18 1000 98.2 80 30 144/78 07/18 0830 98.7 72 20 144/68 07/18 0800 98.7 76 26 164/68 07/18 0800 96 Room Air 07/18 0750 98.7 76 26 164/68 96 Room Air 07/18 0600 80 32 145/71 07/18 0400 97.1 78 20 142/64 07/18 0400 96 Room Air 07/18 0200 74 30 144/72 07/18 0000 97.1 75 24 140/60 03/ 0000 95 Room Air 07/18 0000 97.1 75 24 140/60 95 Room Air 07/17 2206 98.7 07/17 2200 98.7 79 22 135/80 07/17 2200 98.8 85 22 135/80 99 Room Air 07/17 1600 97.7 64 16 120/70 07/17 1600 97.7 64 16 120/70 100 Room Air 07/17 1600 100 Room Air 07/17 1400 97.9 62 16 111/65 Intake & Output 07/18 1600 07/18 0800 07/18 0000 Intake Total 350 330 Output Total 445 600 Balance -95 -270 Intake, IV 300 280 Intake, Oral 50 50 Number 1 1 Bowel Movements Output, Urine 445 600 Exam General Appearance: well developed/nourished, no apparent distress, alert, awake Head: atraumatic, normal appearance Neck: normal inspection, supple Respiratory: normal breath sounds, chest non-tender, no respiratory distress Cardiovascular: regular rate/rhythm, normal S1, S2 Gastrointestinal: normal bowel sounds, soft, non-tender Extremities: normal inspection, normal capillary refill, no edema, massive bruise in the medial right thigh region - marked with significant pain on mobility Cranial Nerves: normal hearing, normal speech, PERRL Skin: intact, normal color, warm/dry Central Line Site: right IJ Date In: 07/17/17 Need for Catheter: low BP IV Drips IV Drips: Lorazepam Nutrition Nutrition: P.O. diet Current Medications: Current Medications Sig/Kim Start time Last Medication Dose Route Stop Time Status Admin Acetaminophen 1,000 MG Q6 PRN 07/18 0500 AC 07/18 IV 0453 Acetaminophen 1,000 MG TID PRN 07/18 0436 DC IV Acetaminophen 1,000 MG TID 07/17 2200 DC 07/17 IV 2206 Acetaminophen 1,000 MG TID PRN 07/15 0400 DC 07/17 IV 07/17 2159 1807 Ampicillin Sodium/ 1,500 MG Q6 07/17 0242 DC 07/18 Sulbactam Sodium IV 1247 Sodium Chloride 100 ML Atorvastatin Calcium 80 MG DAILY 07/15 1000 AC 07/18 PO 0929 Bupropion HCl 300 MG DAILY 07/15 1000 AC 07/18 PO 0930 Dextrose/Sodium 1,000 ML Q13H 07/17 1230 DC 07/17 Chloride IV 1453 Duloxetine HCl 30 MG DAILY 07/15 1000 AC 07/18 PO 0929 Ferrous Sulfate 325 MG DAILY 07/17 1429 AC 07/18 PO 0930 Gabapentin 600 MG Q6P PRN 07/15 0400 AC 07/18 PO 1117 Hydrocortisone 25 MG Q12 07/18 2200 AC Sodium Succinate IV Hydrocortisone 50 MG Q12 07/17 220 DC 07/18 Sodium Succinate IV 0929 Hydroxychloroquine 200 MG BID 07/15 1000 AC 07/18 Sulfate PO 0929 Insulin Aspart 0 TIDAC 07/17 1700 AC SC Insulin Human Regular 0 Q6 07/17 0600 DC 07/17 SC 1453 Lorazepam 50 MG Q24H 07/18 0730 AC 07/18 Sodium Chloride 500 ML IV 0755 Lorazepam 50 MG Q24H 07/18 07 DC Dextrose/Water 500 ML IV Lorazepam 2 MG ONE ONE 07/18 0645 DC 07/18 IV 07/18 0646 0648 Lorazepam 0 Q1P PRN 07/16 2345 AC 07/18 IV 0549 Magnesium Sulfate 1 GM Q2H 07/18 0845 DC 07/18 Dextrose/Water 100 ML IV 07/18 1244 1023 Morphine Sulfate 2 MG ONCE ONE 07/18 0800 DC 07/18 IV 07/18 0801 0816 Oxycodone HCl 10 MG ONCE ONE 07/18 1115 DC 07/18 PO 07/18 1116 1117 Pantoprazole Sodium 40 MG DAILY 07/17 1000 AC 07/18 IV 0929 Prednisone 7.5 MG DAILY 07/18 1000 AC 07/18 PO 0929 Prednisone 7.5 MG DAILY 07/15 1000 DC 07/16 PO 0948 Sertraline HCl 100 MG DAILY 07/15 1000 AC 07/18 PO 0929 Trimethoprim/ 1 TAB BID 07/15 1000 DC 07/17 Sulfamethoxazole PO 07/18 0600 1454 Antibiotics Antibiotics? none Results Results: Negative CXR Findings: On 07/17/17 IMPRESSION: 1. Central port catheter tip at cavoatrial junction. No pneumothorax. 2. Mild central vascular congestion. 3. Dense left lung base of infiltrate and/or atelectasis Impression/Plan Impression/Problem List Impression: 72 year old man with multiple medical problems significant for EtOH abuse admitted for evaluation s/p fall where he suffered a right mildly displaced greater trochanteric fracture. Patient was seen and evaluated by the orthopedics team whom recommended conservative non-operative management with outpatient follow up. He remained in hospital pending discharge to short term rehab. Patient was seen to be progressively more confused and tremulous on the evening of hospital day two and reportedly did not have any alcohol for several days. Patients daughter admits that her father has an extensive alcohol history and has been admitted for alcohol releated problems and injury multiple times before. He has never been intubated or required an ativan drip. Transferred to ICU for concern of delirium tremens and alcohol withdrawl Plan Problem List 1. Comminuted fracture the right symphysis pubis see on CT 2. Acute blood loss anemia, unclear etiology, likely multifactorial 3. EtoH Withdrawal complicated with delirium tremens 4. Right acute mildly-displaced greater trochanteric fracture 5. History of CAD s/p CABG 6. Rheumatoid arthritis on Plaquinel / Prednisone 7. Opiate induced adrenal insufficiency 8. GERD 9. Peripheral neuropathy 1. Comminuted fracture the right inferior and superior symphysis pubis Repeat CT on 07/16/17 did show pubis fracture. Spoke with on phone, reported conservative management without any further evalation. Can continue with toe touch weight bearing status. PT eval. 2. Acute blood loss anemia He did have Iron deficiency with macrocytosis secondary to possible alcohol intake. He had drop in H&H after admission from 10.9/32 to 6.7/20 with new onset bruise in the right medial thigh region. Transfused 2 units PRBC after type and cross match. * H&H remained stable for now at 8.6/25 * Needs oral supplementation in long run 3. EtoH Withdrawal complicated with delirium tremens He remained on diagnostic CIWA and PRN ativan initally. Once found to have significatn withdrawl after 48hrs, transfered to ICU and started on IV ativan drip. * His scores remained stable so far * Currently on IV ativan 0.5mg/hr * OFF antibiotics as CXR findings are consistent with atelectasis. 4. Right acute mildly-displaced greater trochanteric fracture Secondary to mechanical fall. Nonoperative management with toe touch weight bearing status. Ortho on board. 5. History of CAD s/p CABG Cotinue ASA 81mg daily. Atrovastatin 80mg daily * Resume metoprolol when feasible. 6. Rheumatoid arthritis on Plaquinel / Prednisone * continue home regimen 7. Opiate induced adrenal insufficiency Low blood pressures with improvement on IV hydrocortisone. Chronically on opiates from long time. * Reduce dose to hydrocortisone 25mg IV Q12. 8. GERD * continue PPI. 9. Peripheral neuropathy * Continue gabapentine DVT prophylaxis ALPS - bleeding Code status Full code Problem List: 1. Alcohol withdrawal delirium 2. Fall at home 3. Fracture of greater trochanter 4. Chronic anemia 5. Pubic ramus fracture Pain Ratin Pain Location: hip pain, leg pain Tomorrow's Labs & Rationales: cbc to monitor H&H BEP to monitor electrolytes Plan DVT/Prophylaxis: mechanical Code Status: Full Code Acosta Guerin MD 07/18/17 0937: Attending MD Review Statement Attending Sign Off Attending Cosign Statement: I have: examined this patient, reviewed avalbl EMR data, personally reviewd images, discussd w/resident/PA/BLADDER TIER, discussed mgmt plan w/garret, discussed mgmt plan w/CM, discussed mgmt plan w/pt, agreed w/resident/PA/BLADDER TIER, amended to note. Other Findings: I, Acosta Guerin M.D. have examined this patient, reviewed available EMR data, personally reviewed images, discussed with resident/PA/BLADDER TIER, discussed management plan with housestaff and nursing staff, discussed managment plan all of healthcare providers, discussed management plan with patient and/or family, agreed with resident/PA/BLADDER TIER. The past history and parts of the chart have been autopopulated. Impression 72-year-old man with hypotension now improved brief period of vasopressors. The differential diagnosis includes adrenal insufficiency, blood loss anemia, sepsis. Hip fracture and now noted to have a right symphysis pubis fracture. Plan -Orthopedic follow up rearding pubis fracture -ID appreciated, monitor off antibiotics -CXR likely suggestive of atelectasis -Monitor CBC -We'll ask orthopedic surgery for any further imaging of the extremities warranted there was no evidence of any retroperitoneal hematoma however -f/u Endocrinology consultation -taper Ativan gtt to CIWA -pain control DVT prophylaxis at all times with Alps TTS 35 min
--- NOTE | 2017-07-18 12:09 | PN- Endocrinology ---
Assessment/Plan Endoscopy Assessment: 72 y/o male with PMH CAD s/p CABG, HTN, pulmonary hypertension, GERD, diverticulosis, nephrolithiasis, depression, peripheral neuropathy, rheumatoid arthritis on prednisone and plaquenil, avascular necrosis s/p bilateral hip replacements and on pain medication chronically, was admitted for right greater trochanter fracture after mechanical fall. He was hypotensive last night. His BP improved after he received stress dose of steroid. 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 Patient was put on steroid dose of steroid-- hydrocortisone 50mg iv every 12 hours on 07/17/2017. Repeat TFT-- TSH 1.22, free T4 0.73; anti TPO < 28 and anti TG 16. The evaluation and treatment of steroid induced osteopororsis should be done as outpatient. Plan: 1. decrease Hydrocortisone to 25 mg iv twice a day today; 2. monitor vital sign and electrolytes; will follow. Subjective Subjective: He is sleeping at this moment. Objective Last 24 Hrs of Vital Signs/I&O Vital Signs Date Time Temp Pulse Resp B/P B/P Pulse O2 O2 Flow FiO2 Mean Ox Delivery Rate 07/18 1000 98.2 80 30 144/78 03/ 0830 98.7 72 20 144/68 03/ 0800 98.7 76 26 164/68 03/ 0800 96 Room Air 07/18 0750 98.7 76 26 164/68 96 Room Air 07/18 0600 80 32 145/71 03/ 0400 97.1 78 20 142/64 / 0400 96 Room Air / 0200 74 30 144/72 03/ 0000 97.1 75 24 140/60 03/25 0000 95 Room Air 03/ 0000 97.1 75 24 140/60 95 Room Air 07/17 2206 98.7 03/ 2200 98.7 79 22 135/80 03/ 2200 98.8 85 22 135/80 99 Room Air 03 1600 97.7 64 16 120/70 03/24 1600 97.7 64 16 120/70 100 Room Air 07/17 1600 100 Room Air 07/17 1400 97.9 62 16 111/65 Intake & Output / 1600 /25 0800 03 0000 Intake Total 350 330 Output Total 445 600 Balance -95 -270 Intake, IV 300 280 Intake, Oral 50 50 Number 1 1 Bowel Movements Output, Urine 445 600 Results Pertinent Lab/Antwan Results: Laboratory Tests 07/18 07/17 1889 5997 Chemistry Sodium (137 - 145 mmol/L) 140 Potassium (3.5 - 5.1 mmol/L) 4.0 Chloride (98 - 107 mmol/L) 106 Carbon Dioxide (22 - 30 mmol/L) 23 Anion Gap (5 - 16) 10 BUN (9 - 20 mg/dL) 11 Creatinine (0.7 - 1.2 mg/dL) 0.7 Estimated GFR (>60 ml/min) > 60 Glucose (65 - 99 mg/dL) 92 Calcium (8.4 - 10.2 mg/dL) 8.8 Phosphorus (2.5 - 4.5 mg/dL) 3.8 Magnesium (1.6 - 2.3 mg/dL) 1.6 Total Bilirubin (0.2 - 1.3 mg/dL) 1.1 AST (17 - 59 U/L) 23 ALT (21 - 72 U/L) 29 Albumin (3.5 - 5.0 g/dL) 2.8 L TSH (0.270 - 4.200 uIU/mL) 1.220 Free T4 (0.78 - 2.44 ng/dL) 0.73 L Hematology CBC w Diff NO MAN DIFF REQ NO MAN DIFF REQ WBC (4.8 - 10.8 /CUMM) 3.4 L 3.5 L RBC (4.70 - 6.10 /CUMM) 2.62 L 2.59 L Hgb (14.0 - 18.0 G/DL) 8.6 L 8.4 L Hct (42 - 52 %) 25.6 L 25.3 L MCV (80.0 - 94.0 FL) 97.8 H 97.7 H MCH (27.0 - 31.0 PG) 32.7 H 32.3 H MCHC (33.0 - 37.0 G/DL) 33.4 33.1 RDW (11.5 - 14.5 %) 22.3 H 22.1 H Plt Count (130 - 400 /CUMM) 99 L 88 L MPV (7.4 - 10.4 FL) 8.0 8.0 Gran % (42.2 - 75.2 %) 80.8 H 73.2 Lymphocytes % (20.5 - 51.1 %) 9.2 L 14.6 L Monocytes % (1.7 - 9.3 %) 9.9 H 12.0 H Eosinophils % (0 - 5 %) 0 0 Basophils % (0.0 - 2.0 %) 0.1 0.2 Absolute Granulocytes (1.4 - 6.5 /CUMM) 2.8 2.5 Absolute Lymphocytes (1.2 - 3.4 /CUMM) 0.3 L 0.5 L Absolute Monocytes (0.10 - 0.60 /CUMM) 0.3 0.4 Absolute Eosinophils (0.0 - 0.7 /CUMM) 0 0 Absolute Basophils (0.0 - 0.2 /CUMM) 0 0 Immunology Thyroglobulin Antibody (< 61 U/mL) 16 Thyroid Peroxidase Ab (< 61 U/mL) < 28 07/17 1250 Coagulation PT (9.4 - 12.5 SEC) 10.7 INR (0.90 - 1.17) 0.98 APTT (25 - 37 SEC) 34 Hematology CBC w Diff NO MAN DIFF REQ WBC (4.8 - 10.8 /CUMM) 3.0 L RBC (4.70 - 6.10 /CUMM) 2.23 L Hgb (14.0 - 18.0 G/DL) 7.4 *L Hct (42 - 52 %) 22.3 L MCV (80.0 - 94.0 FL) 100.2 H MCH (27.0 - 31.0 PG) 33.4 H MCHC (33.0 - 37.0 G/DL) 33.3 RDW (11.5 - 14.5 %) 21.8 H Plt Count (130 - 400 /CUMM) 83 L MPV (7.4 - 10.4 FL) 8.4 Gran % (42.2 - 75.2 %) 84.2 H Lymphocytes % (20.5 - 51.1 %) 7.5 L Monocytes % (1.7 - 9.3 %) 8.2 Eosinophils % (0 - 5 %) 0 Basophils % (0.0 - 2.0 %) 0.1 Absolute Granulocytes (1.4 - 6.5 /CUMM) 2.5 Absolute Lymphocytes (1.2 - 3.4 /CUMM) 0.2 L Absolute Monocytes (0.10 - 0.60 /CUMM) 0.2 Absolute Eosinophils (0.0 - 0.7 /CUMM) 0 Absolute Basophils (0.0 - 0.2 /CUMM) 0
[2017-07-19] VITALS (8 sets, daily range): BP systolic 121–138; BP diastolic 60–89
[2017-07-19 06:04] LABS: ABSOLUTE BASOPHIL COUNT 0 /CUMM (0.0-0.2); ABSOLUTE EOSINOPHIL COUNT 0 /CUMM (0.0-0.7); ABSOLUTE GRANULOCYTE CT 2.7 /CUMM (1.4-6.5); ABSOLUTE LYMPH COUNT 0.4 /CUMM (1.2-3.4); ABSOLUTE MONOCYTE COUNT 0.4 /CUMM (0.10-0.60); BASOPHIL % 0.2 % (0.0-2.0); EOSINOPHIL % 0 % (0-5); GRANULOCYTE % 77.8 % (42.2-75.2); HEMATOCRIT 24.6 % (42-52); MEAN CORPUSCULAR HGB CONC 33.2 G/DL (33.0-37.0); MEAN CORPUSCULAR VOLUME 99.5 FL (80.0-94.0); MEAN PLATELET VOLUME 7.4 FL (7.4-10.4); PLATELET COUNT 135 /CUMM (130-400); RBC DISTRIBUTION WIDTH 22.3 % (11.5-14.5); RED BLOOD CELL CT 2.48 /CUMM (4.70-6.10); WHITE BLOOD CELL COUNT 3.4 /CUMM (4.8-10.8)
--- NOTE | 2017-07-19 07:39 | PN- Resident CRCU ---
Conrado Montalvo 07/19/17 0739: Subjective HPI/CRCU Issues: -Comminuted fracture the right symphysis pubis see on CT -Acute anemia, unclear etiology, likely multifactorial -EtoH Withdrawal with Delerium -Right acute mildly-displaced greater trochanteric fracture 24 Hour Events: He was seen and examin today. He is alert, awake oriented X 1. he report only back pain. he was restarted on ativan drip his CIWA scores 2-9 he deny any Aud or visual hallucination, chest pain, heartracing. His H&H stable after 2 units of PRBCs that he received on Sat. He is in + ve fluid balance of 1-2 L. Objective Vital Signs & I&O Last 8 Hrs of Vitals and I&O: Vital Signs Date Time Temp Pulse Resp B/P B/P Pulse O2 O2 Flow FiO2 Mean Ox Delivery Rate 07/19 0600 70 22 138/78 07/19 0400 97.7 68 22 132/70 07/19 0400 95 Room Air 07/19 0200 70 22 121/67 Exam General Appearance: well developed/nourished, no apparent distress, alert, awake , comfortable Head: atraumatic Neck: normal inspection Respiratory: normal breath sounds, chest non-tender, no respiratory distress Cardiovascular: regular rate/rhythm, Nl s1, s2 Gastrointestinal: normal bowel sounds, soft, non-tender Extremities: no edema, s/p right 2nd toe amputation, non healing ucler. IV Drips IV Drips: Ativan Current Medications: Current Medications Sig/Kim Start time Last Medication Dose Route Stop Time Status Admin Acetaminophen 1,000 MG Q6 PRN 07/18 0500 AC 07/19 IV 0835 Ampicillin Sodium/ 1,500 MG Q6 07/17 0242 DC 07/18 Sulbactam Sodium IV 1247 Sodium Chloride 100 ML Atorvastatin Calcium 80 MG DAILY 07/15 1000 AC 07/19 PO 0809 Bupropion HCl 300 MG DAILY 07/15 1000 AC 07/19 PO 0810 Cyanocobalamin 1,000 MCG DAILY 07/19 1000 AC PO Duloxetine HCl 30 MG DAILY 07/15 1000 AC 07/19 PO 0809 Ferrous Sulfate 325 MG DAILY 07/17 1429 AC 07/19 PO 0810 Folic Acid 1 MG DAILY 07/19 1000 AC PO Gabapentin 600 MG Q6P PRN 07/15 0400 AC 07/19 PO 0810 Hydrocortisone 25 MG Q12 07/18 2200 DC 07/19 Sodium Succinate IV 0812 Hydrocortisone 50 MG Q12 07/17 2200 DC 07/18 Sodium Succinate IV 0929 Hydroxychloroquine 200 MG BID 07/15 1000 AC 07/19 Sulfate PO 0810 Insulin Aspart 0 TIDAC 07/17 1700 DC SC Lorazepam 50 MG Q24H 07/18 0730 AC 07/18 Sodium Chloride 500 ML IV 0755 Lorazepam 0 Q1P PRN 07/16 2345 AC 07/18 IV 0549 Magnesium Oxide 400 MG BID 07/19 1000 AC PO 07/19 2201 Magnesium Sulfate 1 GM Q2H 07/18 0845 DC 07/18 Dextrose/Water 100 ML IV 07/18 1244 1023 Morphine Sulfate 15 MG ONCE ONE 07/18 1915 DC 07/18 PO 07/18 1916 1940 Omeprazole 40 MG DAILY AC 07/20 0700 AC PO Oxycodone HCl 10 MG ONCE ONE 07/18 2345 DC 07/19 PO 07/18 2346 0256 Oxycodone HCl 10 MG ONCE ONE 07/18 1115 DC 07/18 PO 07/18 1116 1117 Pantoprazole Sodium 40 MG DAILY 07/17 1000 DC 07/19 IV 0810 Phosphate 250 MG PC AND AT BEDTIME 07/19 0900 AC PO 07/19 0901 Prednisone 7.5 MG DAILY 07/18 1000 AC 07/19 PO 0809 Sertraline HCl 100 MG DAILY 07/15 1000 AC 07/19 PO 0809 Thiamine HCl 500 MG TID 07/19 1000 AC Sodium Chloride 250 ML IV 07/21 2301 Results Results: Laboratory Tests 07/19/17 0521: Sodium Cancelled, Potassium Cancelled, Chloride Cancelled, Carbon Dioxide Cancelled, Anion Gap Cancelled, BUN Cancelled, Creatinine Cancelled, Glucose Cancelled, Calcium Cancelled, Phosphorus Cancelled, Magnesium Cancelled, Total Bilirubin Cancelled, AST Cancelled, ALT Cancelled, Albumin Cancelled 07/19/17 0515: CBC w Diff NO MAN DIFF REQ, RBC 2.48 L, MCV 99.5 H, MCH 33.0 H, MCHC 33.2, RDW 22.3 H, MPV 7.4, Gran % 77.8 H, Lymphocytes % 10.8 L, Monocytes % 11.2 H , Eosinophils % 0, Basophils % 0.2, Absolute Granulocytes 2.7, Absolute Lymphocytes 0.4 L, Absolute Monocytes 0.4, Absolute Eosinophils 0, Absolute Basophils 0 07/18/17 0415: Anion Gap 10, Estimated GFR > 60, Glucose 92, Calcium 8.8, Phosphorus 3.8, Magnesium 1.6, Total Bilirubin 1.1, AST 23, ALT 29, Albumin 2.8 L, TSH 1.220, Free T4 0.73 L, CBC w Diff NO MAN DIFF REQ, RBC 2.62 L, MCV 97.8 H, MCH 32.7 H, MCHC 33.4, RDW 22.3 H, MPV 8.0, Gran % 80.8 H, Lymphocytes % 9.2 L, Monocytes % 9.9 H, Eosinophils % 0, Basophils % 0.1, Absolute Granulocytes 2.8, Absolute Lymphocytes 0.3 L, Absolute Monocytes 0.3, Absolute Eosinophils 0, Absolute Basophils 0, Thyroglobulin Antibody 16, Thyroid Peroxidase Ab < 28 07/17/175: CBC w Diff NO MAN DIFF REQ, RBC 2.59 L, MCV 97.7 H, MCH 32.3 H, MCHC 33.1, RDW 22.1 H, MPV 8.0, Gran % 73.2, Lymphocytes % 14.6 L, Monocytes % 12.0 H, Eosinophils % 0, Basophils % 0.2, Absolute Granulocytes 2.5, Absolute Lymphocytes 0.5 L, Absolute Monocytes 0.4, Absolute Eosinophils 0, Absolute Basophils 0 07/17/17 1250: PT 10.7, INR 0.98, APTT 34, CBC w Diff NO MAN DIFF REQ, RBC 2.23 L, MCV 100.2 H, MCH 33.4 H, MCHC 33.3, RDW 21.8 H, MPV 8.4, Gran % 84.2 H, Lymphocytes % 7.5 L, Monocytes % 8.2, Eosinophils % 0, Basophils % 0.1, Absolute Granulocytes 2.5, Absolute Lymphocytes 0.2 L, Absolute Monocytes 0.2, Absolute Eosinophils 0 , Absolute Basophils 0 Microbiology 07/18 919 UPPER RESP: Surveillance Culture - COMP 07/18 919 GI: Surveillance Culture - COMP Impression/Plan Impression/Problem List Impression: Problem List -Comminuted fracture the right symphysis pubis see on CT -Acute anemia, unclear etiology, likely multifactorial -EtoH Withdrawal -Right acute mildly-displaced greater trochanteric fracture -History of CAD s/p CABG -Hx of HFpEF. -Rheumatoid arthritis on Plaquinel / Prednisone, possible adrenal insufficiency -GERD -Peripheral neuropathy Plan: -DC Ativan drip -DC safety monitor, DC Robles catheter and removal the right IJ line -DC IV Protonix, omeprazole by mouth -Discontinue IV hydrocortisone , continue the patient prednisone home dose -DC Novolog coverage as the patient a diabetic and off hydrocortisone -Patient become hypotensive will restart stress dose of hydrocortisone. -Start patient on Ativan 2 mg every 6 -Continue Ativan IV when necessary per [facility] protocol -High-dose thiamine, by mouth folic acid and vitamin B12 -DC IV Tylenol, place patient on Tylenol No. 3 every 6 hr. -Continue iron supplement. -Psychiatric consultation -1 dose of 20mg IV Lasix -Repeat electrolytes accordingly -We'll continue monitor H&H -Patient will need outpatient adobe developer evaluation -Encourage oral intake -DVT prophylaxis:Alps -Full code. Problem List: 1. Pubic ramus fracture 2. Pubic bone fracture 3. Alcohol withdrawal delirium Pain Ratin Pain Location: back Pain Goal: Pain 4 or less Pain Plan: see A/P Tomorrow's Labs & Rationales: cbc icu Plan DVT/Prophylaxis: mechanical Code Status: Full Code Acosta Guerin MD 07/19/17 1108: Attending MD Review Statement Attending Sign Off Attending Cosign Statement: I have: examined this patient, reviewed avalbl EMR data, personally reviewd images, discussd w/resident/PA/MANAGER ONCOLOGY, discussed mgmt plan w/garret, discussed mgmt plan w/CM, discussed mgmt plan w/pt, agreed w/resident/PA/MANAGER ONCOLOGY, amended to note. Other Findings: IAcosta M.D. have examined this patient, reviewed available EMR data, personally reviewed images, discussed with resident/PA/MANAGER ONCOLOGY, discussed management plan with housestaff and nursing staff, discussed managment plan all of healthcare providers, discussed management plan with patient and/or family, agreed with resident/PA/MANAGER ONCOLOGY. The past history and parts of the chart have been autopopulated. Impression 72-year-old man with hypotension now improved brief period of vasopressors. The differential diagnosis includes adrenal insufficiency, blood loss anemia, sepsis. Hip fracture and now noted to have a right symphysis pubis fracture. Plan -Orthopedic follow up rearding pubis fracture -ID appreciated, monitor off antibiotics -CXR likely suggestive of atelectasis -Monitor CBC -We'll ask orthopedic surgery for any further imaging of the extremities warranted there was no evidence of any retroperitoneal hematoma however -f/u Endocrinology consultation -taper Ativan gtt to CIWA -pain control DVT prophylaxis at all times with Alps TTS 35 min Overall significantly improved Remove central line after obtaining peripheral iv access
--- NOTE | 2017-07-19 08:19 | PN- Endocrinology ---
Assessment/Plan Endoscopy Assessment: 72 y/o male with PMH CAD s/p CABG, HTN, pulmonary hypertension, GERD, diverticulosis, nephrolithiasis, depression, peripheral neuropathy, rheumatoid arthritis on prednisone and plaquenil, avascular necrosis s/p bilateral hip replacements and on pain medication chronically, was admitted for right greater trochanter fracture after mechanical fall. He was hypotensive last night. His BP improved after he received stress dose of steroid. 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 Patient was put on steroid dose of steroid-- hydrocortisone 50mg iv every 12 hours on 07/17/2017. On 07/18/2017, Hydrocortisone was decreased to 25 mg iv teice a day. Repeat TFT-- TSH 1.22, free T4 0.73; anti TPO < 28 and anti TG 16. The evaluation and treatment of steroid induced osteopororsis should be done as outpatient. Plan: 1. stop Hydrocortisone today; 2. continue prednisone 7.5 mg daily. 3. monitor vital sign and electrolytes; will follow. Subjective Subjective: He feels better this morning. Objective Last 24 Hrs of Vital Signs/I&O Vital Signs Date Time Temp Pulse Resp B/P B/P Pulse O2 O2 Flow FiO2 Mean Ox Delivery Rate 07/19 0600 70 22 138/78 07/19 0400 97.7 68 22 132/70 07/19 0400 95 Room Air 07/19 0200 70 22 121/67 07/19 0000 98.2 73 18 122/60 07/19 0000 95 Room Air 07/19 0000 98.2 73 18 122/60 95 Room Air 07/18 2200 86 19 113/69 07/18 2000 98.2 73 19 118/60 07/18 2000 96 Room Air 07/18 1600 97.1 77 20 122/70 07/18 1600 97.1 77 20 122/70 95 Room Air 07/18 1600 96 Room Air 07/18 1400 98.2 75 22 125/72 07/18 1200 98.5 75 24 132/68 07/18 1200 92 Room Air 07/18 1000 98.2 80 30 144/78 07/18 0830 98.7 72 20 144/68 Intake & Output 07/19 1600 07/19 0800 07/19 0000 Intake Total 3360 2270 Output Total 300 Balance 3360 1970 Intake, IV 3310 1280 Intake, Oral 50 990 Output, Urine 300 Results Pertinent Lab/Antwan Results: Laboratory Tests 07/19 07/19 0521 0515 Chemistry Sodium Cancelled Potassium Cancelled Chloride Cancelled Carbon Dioxide Cancelled Anion Gap Cancelled BUN Cancelled Creatinine Cancelled Glucose Cancelled Calcium Cancelled Phosphorus Cancelled Magnesium Cancelled Total Bilirubin Cancelled AST Cancelled ALT Cancelled Albumin Cancelled Hematology CBC w Diff NO MAN DIFF REQ WBC (4.8 - 10.8 /CUMM) 3.4 L RBC (4.70 - 6.10 /CUMM) 2.48 L Hgb (14.0 - 18.0 G/DL) 8.2 L Hct (42 - 52 %) 24.6 L MCV (80.0 - 94.0 FL) 99.5 H MCH (27.0 - 31.0 PG) 33.0 H MCHC (33.0 - 37.0 G/DL) 33.2 RDW (11.5 - 14.5 %) 22.3 H Plt Count (130 - 400 /CUMM) 135 MPV (7.4 - 10.4 FL) 7.4 Gran % (42.2 - 75.2 %) 77.8 H Lymphocytes % (20.5 - 51.1 %) 10.8 L Monocytes % (1.7 - 9.3 %) 11.2 H Eosinophils % (0 - 5 %) 0 Basophils % (0.0 - 2.0 %) 0.2 Absolute Granulocytes (1.4 - 6.5 /CUMM) 2.7 Absolute Lymphocytes (1.2 - 3.4 /CUMM) 0.4 L Absolute Monocytes (0.10 - 0.60 /CUMM) 0.4 Absolute Eosinophils (0.0 - 0.7 /CUMM) 0 Absolute Basophils (0.0 - 0.2 /CUMM) 0
--- NOTE | 2017-07-19 11:06 | PN- Infect Dx ---
Subjective Subjective: Afebrile on steroids. He does not offer any complaints Objective Last 24 Hrs of Vital Signs/I&O Vital Signs Date Time Temp Pulse Resp B/P B/P Pulse O2 O2 Flow FiO2 Mean Ox Delivery Rate 07/19 08 97.6 80 20 136/72 96 Room Air 07/19 0600 70 22 138/78 07/19 0400 97.7 68 22 132/70 07/19 0400 95 Room Air 07/19 0200 70 22 121/67 07/19 0000 98.2 73 18 122/60 07/19 0000 95 Room Air 07/19 0000 98.2 73 18 122/60 95 Room Air 07/18 2200 86 19 113/69 07/18 2000 98.2 73 19 118/60 07/18 2000 96 Room Air 07/18 1600 97.1 77 20 122/70 07/18 1600 97.1 77 20 122/70 95 Room Air 07/18 1600 96 Room Air 07/18 1400 98.2 75 22 125/72 07/18 1200 98.5 75 24 132/68 07/18 1200 92 Room Air Intake & Output 07/19 1600 07/19 0800 07/19 0000 Intake Total 3360 2270 Output Total 300 Balance 3360 1970 Intake, IV 3310 1280 Intake, Oral 50 990 Output, Urine 300 Physical Exam Other Physical Findings: He is awake and alert, not confused at present, and in no acute distress Neck right IJ triple-lumen catheter with no inflammation at the site Lungs decreased breath sounds at the left base Heart regular rhythm with a 1/6 systolic ejection murmur Abdomen is soft, nontender with positive bowel sounds Extremities right third toe with small medial ulceration, with minimal erythema and no active drainage Robles catheter remains in place Results Last 24 Hours of Lab Results: Laboratory Tests 07/19 07/19 0521 0515 Chemistry Sodium Cancelled Potassium Cancelled Chloride Cancelled Carbon Dioxide Cancelled Anion Gap Cancelled BUN Cancelled Creatinine Cancelled Glucose Cancelled Calcium Cancelled Phosphorus Cancelled Magnesium Cancelled Total Bilirubin Cancelled AST Cancelled ALT Cancelled Albumin Cancelled Hematology CBC w Diff NO MAN DIFF REQ WBC (4.8 - 10.8 /CUMM) 3.4 L RBC (4.70 - 6.10 /CUMM) 2.48 L Hgb (14.0 - 18.0 G/DL) 8.2 L Hct (42 - 52 %) 24.6 L MCV (80.0 - 94.0 FL) 99.5 H MCH (27.0 - 31.0 PG) 33.0 H MCHC (33.0 - 37.0 G/DL) 33.2 RDW (11.5 - 14.5 %) 22.3 H Plt Count (130 - 400 /CUMM) 135 MPV (7.4 - 10.4 FL) 7.4 Gran % (42.2 - 75.2 %) 77.8 H Lymphocytes % (20.5 - 51.1 %) 10.8 L Monocytes % (1.7 - 9.3 %) 11.2 H Eosinophils % (0 - 5 %) 0 Basophils % (0.0 - 2.0 %) 0.2 Absolute Granulocytes (1.4 - 6.5 /CUMM) 2.7 Absolute Lymphocytes (1.2 - 3.4 /CUMM) 0.4 L Absolute Monocytes (0.10 - 0.60 /CUMM) 0.4 Absolute Eosinophils (0.0 - 0.7 /CUMM) 0 Absolute Basophils (0.0 - 0.2 /CUMM) 0 Last 24 Hours of Antwan Results: Blood cultures July 16 negative Assessment/Plan ID Impression: Stable, with temperatures and white blood cell count remaining normal (on steroids) and off antibiotics with no evidence for any active infectious process. His right third toe lesion could suggest residual osteomyelitis and further evaluation for this may be warranted. Suggestion: 1. Podiatry evaluation regarding his right third toe 2. Orthopedic follow-up regarding his right symphysis pubic fracture 3. Remove right IJ triple-lumen catheter 4. Remove Robles catheter 5. Continue to follow off antibiotics
--- NOTE | 2017-07-19 13:37 | PN- Orthopedic ---
See Addendum Subjective Subjective: Mild co R hip pain. getting better. Objective Vital Signs and I&Os Vital Signs Date Time Temp Pulse Resp B/P B/P Pulse O2 O2 Flow FiO2 Mean Ox Delivery Rate 07/19 08 97.6 80 20 136/72 96 Room Air 07/19 0600 70 22 138/78 07/19 0400 97.7 68 22 132/70 07/19 0400 95 Room Air 07/19 0200 70 22 121/67 07/19 0000 98.2 73 18 122/60 07/19 0000 95 Room Air 07/19 0000 98.2 73 18 122/60 95 Room Air 07/18 2200 86 19 113/69 07/18 2000 98.2 73 19 118/60 07/18 2000 96 Room Air 07/18 1600 97.1 77 20 122/70 07/18 1600 97.1 77 20 122/70 95 Room Air 07/18 1600 96 Room Air 07/18 1400 98.2 75 22 125/72 Intake & Output 07/19 1600 07/19 0800 07/19 0000 07/18 1600 07/18 0800 07/18 0000 Intake Total 3360 2270 956 350 330 Output Total 300 550 445 600 Balance 3360 1970 406 -95 -270 Intake, IV 3310 1280 536 300 280 Intake, Oral 50 990 420 50 50 Number 1 1 1 Bowel Movements Output, Urine 300 550 445 600 Physical Exam: resting comfortably no resp distress. RLE- mild tenderness R troch region and pubic region, minimal swelling. mild pain with hip ROM, no shortening or rotation, nvi distally. Assessment/Plan Assessment/Plan R periprosthetic greater troch fracture and R side superior and inferior pubic rami fracture, stable repeat xray in 2 days of the r hip if still in house cont TTWB
--- NOTE | 2017-07-19 17:43 | Cons- Psychiatry ---
Psychiatric Consult Date of Consult: 07/19/17 Reason for Consult: ETOH. Confused History of Present Illness: 72 y.o. , domiciled male [facility] from home 07/15/17 @ 0003 with a CC of falling when he bent down to pet his cat, fell forward hitting his head and landing on his right hip. Per the H&P, PMH includes CAD s/p CABG, HTN, pulmonary hypertension, GERD, diverticulosis, nephrolithiasis, depression, peripheral neuropathy, rheumatoid arthritis on prednisone and plaquenil, avascular necrosis s/p bilateral hip replacements, prostate and thyroid cancer, chronic nonhealing ulcer of right foot s/p partial third toe amputation and second toe amputation of right foot for osteomyelitis (OR cultures growing MSSA). He lives at home with his and his daughter. CIWA scoring as of 07/19/2017 at 1400:5-8-6-3-0-5-ae-0-4-5-3-5 VS 07/19/2017 at 0800:136/72, 80 HR, 97.6, 20 RR, 96% on room air Per the medication claim history, the patient is prescribed the following psychotropic medications (opiate pain medications are not included in this list) : Bupropion XL 300 mg by mouth daily by Yasmin Jauregui MD Zolpidem 5 mg #30 tabs for 30 days, if needed Sertraline 100 mg #90 tabs for 90 days by Yasmin Jauregui M.D. The patient reports that duloxetine 30 mg PO daily and gabapentin 600 mg PO q 6 hours PRN are prescribed by his pain manager care management. Allergies: Coded Allergies: No Known Allergies (03/05/17) Current Medications: Current Medications Sig/Kim Start time Last Medication Dose Route Stop Time Status Admin Acetaminophen 1,000 MG Q6 PRN 07/18 0500 DC 07/19 IV 0835 Acetaminophen/ 1 TAB Q6 07/19 1200 AC 07/19 Codeine Phosphate PO 1717 Atorvastatin Calcium 80 MG DAILY 07/15 1000 AC 07/19 PO 0809 Bupropion HCl 300 MG DAILY 07/15 1000 DC 07/19 PO 0810 Cyanocobalamin 1,000 MCG DAILY 07/19 1000 AC 07/19 PO 1053 Duloxetine HCl 30 MG DAILY 07/15 1000 AC 07/19 PO 0809 Ferrous Sulfate 325 MG DAILY 07/17 1429 AC 07/19 PO 0810 Folic Acid 1 MG DAILY 07/19 1000 AC 07/19 PO 1053 Furosemide 20 MG ONCE ONE 07/19 1100 DC 07/19 IV 07/19 1101 1056 Gabapentin 600 MG Q6P PRN 07/15 0400 AC 07/19 PO 1716 Hydrocortisone 25 MG Q12 07/18 2200 DC 07/19 Sodium Succinate IV 0812 Hydroxychloroquine 200 MG BID 07/15 1000 AC 07/19 Sulfate PO 0810 Insulin Aspart 0 TIDAC 07/17 1700 DC SC Lorazepam 2 MG Q6 07/19 1200 AC 07/19 PO 1716 Lorazepam 50 MG Q24H 07/18 0730 DC 07/18 Sodium Chloride 500 ML IV 0755 Lorazepam 0 Q1P PRN 07/16 2345 AC 07/18 IV 0549 Magnesium Oxide 400 MG BID 07/19 1000 AC 07/19 PO 07/19 2201 1053 Metoprolol Tartrate 25 MG BID 07/19 2200 AC PO Morphine Sulfate 15 MG ONCE ONE 07/18 1915 DC 07/18 PO 07/18 191 1940 Omeprazole 40 MG DAILY AC 07/20 0700 AC PO Oxycodone HCl 10 MG .STK-MED ONE 07/19 0255 DC PO 07/19 0256 Oxycodone HCl 10 MG ONCE ONE 07/18 2345 DC 07/19 PO 07/18 234 0256 Pantoprazole Sodium 40 MG DAILY 07/17 1000 DC 07/19 IV 0810 Phosphate 250 MG PC AND AT BEDTIME 07/19 0900 DC 07/19 PO 07/19 0901 1053 Prednisone 7.5 MG DAILY 07/18 1000 AC 07/19 PO 0809 Sertraline HCl 100 MG DAILY 07/15 1000 AC 07/19 PO 0809 Thiamine HCl 500 MG TID 07/19 1000 AC 07/19 Sodium Chloride 250 ML IV 07/21 2301 1717 Addendum Addendum PSYCHIATRY CONSULT PRACTICE NOTE DATE: June 13, 2013 MANAGING OPIATE DETOX AND WITHDRAWAL Version: 1.0 TOPIC: Managing opiate detox and withdrawal for medical and surgical inpatients; patient not currently on methadone or partial opiate agonist (buprenorphine- Naltrexone/Suboxone). Formulation: The patient presents with recent history of opiate use, such as heroin, street-obtained pharmaceuticals, and/or prescription drug abuse. There may be competing withdrawals from alcohol, benzodiazepines, amphetamines, or other substances. If the patient is currently on methadone therapy, verify current dosing with the clinic, determine if there is a taper schedule in place and continue with the out-patient plan. Monitor EKG for arrhythmia. Plan: Our goal is to minimize withdrawal signs and symptoms using the OOWS/SOWS screening tool, appropriate medication therapy and clinical judgment: 1. Objective Opioid Withdrawal Scale and the Subjective Opioid Withdrawal Scale (OOWS/SOWS), as currently employed on [facility]. These scales are each on one side of a single sheet of paper (Appendix A). 2. Opiate detox protocol: a. EKG - please monitor for arrhythmias and prolonged QTC. b. Clonidine 0.1 mg PO every 4 hours as needed, if opiate withdrawal symptoms. Hold Clonidine for blood pressure less than 90 mmHg systolic, less than 60 mmHg diastolic or pulse less than 55 BPM. c. Baclofen 10 mg PO every 6 hours, as needed, for muscle cramps. d. Dicyclomine (Bentyl) 20 mg PO every 6 hours, as needed, for GI cramps. e. Hydroxyzine (Atarax or Vistaril) 50 mg PO every 6 hours, as needed, for anxiety. f. Ibuprofen 600 mg PO every 6 hours, as needed, for pain. g. Multivitamin daily. 3. Taper benzodiazepines before discharge, or patient will be unable to start an Intensive Outpatient Past History Past Medical History Neurological: NONE EENT: NONE Cardiovascular: CAD, hypertension, hyperlipidemia, mitral regurgitation Respiratory: NONE Gastrointestinal: GERD, hiatal hernia, umbilical hernia, diverticulosis coli hx colon TA/TVA Hepatic: NONE Renal: nephrolithiasis Musculoskeletal: chronic back pain, degen joint disease, falls, osteoarthritis, rheumatoid arthritis, hx osteo R foot Psychiatric: alcohol dependence (prev EtOH abuse), depression Endocrine: thyroid Ca Blood Disorders: anemia, B12 deficiency hx Fe def Cancer(s): prostate cancer, 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 Psychosocial History Strengths/Capabilities: Motivated for treatment. Physical Limitations (Interventions): To be determined, currently bedbound Psychiatric Treatment History Psych Treatment Psychiatric Treatment Yes Inpatient Treatment No Outpatient Treatment Yes Location of Treatment By patient report, [facility]" Reason for Treatment Depression Dates of Treatment Unclear, pt is not sure Response to Treatment Unknown Diagnosis: F32.9 Major depressive disorder, unspecified F10.10 Alcohol use disorder, recurrent, severe Risk Factors: age (under 24/over 65), chronic/serious med cond., substance abuse , male Substance Use/Abuse History Drug Use/Abuse Substances Used/Abused Yes Substance Used/Abused Marijuana First Use Not evaluated Last Used He does not remember How much used/taken Unknown How often Weekly Substance Abuse Treatment Substance Abuse Treatment Past Substance Abuse [place] No (Unclear) Assessment/Plan Mental Status Orientation: Oriented to month, person, but not day, date, year, reason Affect: Constricted Speech: Normal Neuro-vegetative: Has guilt feelings Mental Status Exam: The patient is dozing in his bed, but easily aroused. He is now alert, oriented to person and month only, but not day, year, place nor reason for admission. He reports he has been diagnosed with depression, currently scaling and at 0/10, although recently it was 3-4/10. He denies hopelessness, helplessness, worthlessness, but endorses guilt feelings. These guilt feelings he says are "from [employer] for usually the things they try to get you on." He reports current anxiety level of 4/10. 10/10 is the worst in both instances. He denies suicidal or homicidal ideation, and denies any history of suicide attempt. The patient denies any history of seizure. He denies any psychiatric hospitalization. Reports that he takes Wellbutrin for depression, which he says is prescribed by his pain manager care management and then very. He reports that the sertraline was started for depression in a rehabilitation, but cannot recall the name or location. He reports that he takes Cymbalta and gabapentin "for my legs." He explains further that these are prescribed for pain by his pain manager care management, who also prescribes opiate pain medications. He reports drinking a fifth of vodka every one to 2 days, in 4-6 beers per day. He does not drink wine every day. He reports that he smokes cannabis approximately weekly. He denies other drug use, stating that he has not used cocaine in a while. The patient reports that he lives with his and daughter. He reports that the had been drinking heavily, and "I had to get out of the house. I lived in a longterm and didn't vary for a while but was kicked out. Then I moved in with my daughter. Now back with my ." He reports that she is a supportive influence having gone through different Hospital IOP and has not had a drink in almost 2 and half years. Asked if he would like to come to [facility] IOP he states, "not if it means I have to sit on the couch all day." He denies current visual, tactile or auditory distortions/hallucinations. Reports that he had experienced visual distortions, see attached free in a painting on the wall "trance Mogg her 5.". He denies any history of seizures. He reports that he did an alcohol rehabilitation but didn't vary, which was "pretty good." Earlier, he alluded to a rehabilitation in [place], but denied that this was the [facility]. Lab Results: Laboratory Tests 07/19 07/19 0521 0515 Chemistry Sodium Cancelled Potassium Cancelled Chloride Cancelled Carbon Dioxide Cancelled Anion Gap Cancelled BUN Cancelled Creatinine Cancelled Glucose Cancelled Calcium Cancelled Phosphorus Cancelled Magnesium Cancelled Total Bilirubin Cancelled AST Cancelled ALT Cancelled Albumin Cancelled Hematology CBC w Diff NO MAN DIFF REQ WBC (4.8 - 10.8 /CUMM) 3.4 L RBC (4.70 - 6.10 /CUMM) 2.48 L Hgb (14.0 - 18.0 G/DL) 8.2 L Hct (42 - 52 %) 24.6 L MCV (80.0 - 94.0 FL) 99.5 H MCH (27.0 - 31.0 PG) 33.0 H MCHC (33.0 - 37.0 G/DL) 33.2 RDW (11.5 - 14.5 %) 22.3 H Plt Count (130 - 400 /CUMM) 135 MPV (7.4 - 10.4 FL) 7.4 Gran % (42.2 - 75.2 %) 77.8 H Lymphocytes % (20.5 - 51.1 %) 10.8 L Monocytes % (1.7 - 9.3 %) 11.2 H Eosinophils % (0 - 5 %) 0 Basophils % (0.0 - 2.0 %) 0.2 Absolute Granulocytes (1.4 - 6.5 /CUMM) 2.7 Absolute Lymphocytes (1.2 - 3.4 /CUMM) 0.4 L Absolute Monocytes (0.10 - 0.60 /CUMM) 0.4 Absolute Eosinophils (0.0 - 0.7 /CUMM) 0 Absolute Basophils (0.0 - 0.2 /CUMM) 0 07/18 07/17 8155 5 Chemistry Sodium (137 - 145 mmol/L) 140 Potassium (3.5 - 5.1 mmol/L) 4.0 Chloride (98 - 107 mmol/L) 106 Carbon Dioxide (22 - 30 mmol/L) 23 Anion Gap (5 - 16) 10 BUN (9 - 20 mg/dL) 11 Creatinine (0.7 - 1.2 mg/dL) 0.7 Estimated GFR (>60 ml/min) > 60 Glucose (65 - 99 mg/dL) 92 Calcium (8.4 - 10.2 mg/dL) 8.8 Phosphorus (2.5 - 4.5 mg/dL) 3.8 Magnesium (1.6 - 2.3 mg/dL) 1.6 Total Bilirubin (0.2 - 1.3 mg/dL) 1.1 AST (17 - 59 U/L) 23 ALT (21 - 72 U/L) 29 Tpn-S-Yclutepkhfs Pept (<125 pg/mL) 4450 H Albumin (3.5 - 5.0 g/dL) 2.8 L TSH (0.270 - 4.200 uIU/mL) 1.220 Free T4 (0.78 - 2.44 ng/dL) 0.73 L Hematology CBC w Diff NO MAN DIFF REQ NO MAN DIFF REQ WBC (4.8 - 10.8 /CUMM) 3.4 L 3.5 L RBC (4.70 - 6.10 /CUMM) 2.62 L 2.59 L Hgb (14.0 - 18.0 G/DL) 8.6 L 8.4 L Hct (42 - 52 %) 25.6 L 25.3 L MCV (80.0 - 94.0 FL) 97.8 H 97.7 H MCH (27.0 - 31.0 PG) 32.7 H 32.3 H MCHC (33.0 - 37.0 G/DL) 33.4 33.1 RDW (11.5 - 14.5 %) 22.3 H 22.1 H Plt Count (130 - 400 /CUMM) 99 L 88 L MPV (7.4 - 10.4 FL) 8.0 8.0 Gran % (42.2 - 75.2 %) 80.8 H 73.2 Lymphocytes % (20.5 - 51.1 %) 9.2 L 14.6 L Monocytes % (1.7 - 9.3 %) 9.9 H 12.0 H Eosinophils % (0 - 5 %) 0 0 Basophils % (0.0 - 2.0 %) 0.1 0.2 Absolute Granulocytes (1.4 - 6.5 /CUMM) 2.8 2.5 Absolute Lymphocytes (1.2 - 3.4 /CUMM) 0.3 L 0.5 L Absolute Monocytes (0.10 - 0.60 /CUMM) 0.3 0.4 Absolute Eosinophils (0.0 - 0.7 /CUMM) 0 0 Absolute Basophils (0.0 - 0.2 /CUMM) 0 0 Immunology Thyroglobulin Antibody (< 61 U/mL) 16 Thyroid Peroxidase Ab (< 61 U/mL) < 28 03/24 03/24 03/24 03/ 1250 0500 0400 0400 Chemistry Lactic Acid (0.7 - 2.1 mmol/L) 0.8 Ferritin (17.9 - 464 ng/mL) 144.0 Prolactin (3.7 - 17.9 ng/mL) 27.0 H Coagulation PT (9.4 - 12.5 SEC) 10.7 INR (0.90 - 1.17) 0.98 APTT (25 - 37 SEC) 34 Hematology CBC w Diff NO MAN DIFF REQ WBC (4.8 - 10.8 /CUMM) 3.0 L RBC (4.70 - 6.10 /CUMM) 2.23 L Hgb (14.0 - 18.0 G/DL) 7.4 *L Hct (42 - 52 %) 22.3 L MCV (80.0 - 94.0 FL) 100.2 H MCH (27.0 - 31.0 PG) 33.4 H MCHC (33.0 - 37.0 G/DL) 33.3 RDW (11.5 - 14.5 %) 21.8 H Plt Count (130 - 400 /CUMM) 83 L MPV (7.4 - 10.4 FL) 8.4 Gran % (42.2 - 75.2 %) 84.2 H Lymphocytes % (20.5 - 51.1 %) 7.5 L Monocytes % (1.7 - 9.3 %) 8.2 Eosinophils % (0 - 5 %) 0 Basophils % (0.0 - 2.0 %) 0.1 Absolute Granulocytes (1.4 - 6.5 /CUMM) 2.5 Absolute Lymphocytes (1.2 - 3.4 /CUMM) 0.2 L Absolute Monocytes (0.10 - 0.60 /CUMM) 0.2 Absolute Eosinophils (0.0 - 0.7 /CUMM) 0 Absolute Basophils (0.0 - 0.2 /CUMM) 0 Haptoglobin (43 - 212 mg/dL) 38 L 07/17 07/16 0400 2143 Chemistry Sodium (137 - 145 mmol/L) 137 Potassium (3.5 - 5.1 mmol/L) 4.4 Chloride (98 - 107 mmol/L) 106 Carbon Dioxide (22 - 30 mmol/L) 23 Anion Gap (5 - 16) 8 BUN (9 - 20 mg/dL) 18 Creatinine (0.7 - 1.2 mg/dL) 1.0 Estimated GFR (>60 ml/min) > 60 Glucose (65 - 99 mg/dL) 108 H Calcium (8.4 - 10.2 mg/dL) 8.3 L Phosphorus (2.5 - 4.5 mg/dL) 3.9 Magnesium (1.6 - 2.3 mg/dL) 1.7 Iron (49 - 181 ug/dL) 28 L TIBC (261 - 462 ug/dL) 250 L Total Bilirubin (0.2 - 1.3 mg/dL) 0.8 AST (17 - 59 U/L) 26 ALT (21 - 72 U/L) 28 Ammonia (9 - 30 umol/L) < 9 L Lactate Dehydrogenase (313 - 618 U/L) 765 H Troponin I Cancelled Albumin (3.5 - 5.0 g/dL) 2.8 L Cortisol AM Sample (4.46 - 22.7 ug/dL) 7.0 Hematology CBC w Diff MAN DIFF ORDERED WBC (4.8 - 10.8 /CUMM) 4.0 L RBC (4.70 - 6.10 /CUMM) 2.04 L Hgb (14.0 - 18.0 G/DL) 6.7 *L Hct (42 - 52 %) 20.9 L MCV (80.0 - 94.0 FL) 102.2 H MCH (27.0 - 31.0 PG) 32.6 H MCHC (33.0 - 37.0 G/DL) 31.9 L RDW (11.5 - 14.5 %) 22.5 H Plt Count (130 - 400 /CUMM) 97 L MPV (7.4 - 10.4 FL) 8.6 Gran % (42.2 - 75.2 %) 67.2 Lymphocytes % (20.5 - 51.1 %) 18.4 L Monocytes % (1.7 - 9.3 %) 13.1 H Eosinophils % (0 - 5 %) 1.0 Basophils % (0.0 - 2.0 %) 0.3 Absolute Granulocytes (1.4 - 6.5 /CUMM) 2.7 Absolute Lymphocytes (1.2 - 3.4 /CUMM) 0.7 L Absolute Monocytes (0.10 - 0.60 /CUMM) 0.5 Absolute Eosinophils (0.0 - 0.7 /CUMM) 0 Absolute Basophils (0.0 - 0.2 /CUMM) 0 Platelet Estimate (ADEQUATE) DECREASED Polychromasia 1+ Hypochromic-Microcytic 2+ Poikilocytosis 1+ Basophilic Stippling Anisocytosis 1+ Ovalocytes Schistocytes Retic Count (0.5 - 2.0 %) 2.62 H 07/16 07/16 2130 2130 Chemistry Sodium (137 - 145 mmol/L) 137 Potassium (3.5 - 5.1 mmol/L) 4.7 Chloride (98 - 107 mmol/L) 103 Carbon Dioxide (22 - 30 mmol/L) 23 Anion Gap (5 - 16) 10 BUN (9 - 20 mg/dL) 20 Creatinine (0.7 - 1.2 mg/dL) 1.2 Estimated GFR (>60 ml/min) 60 BUN/Creatinine Ratio (7 - 25 %) 16.7 Lactic Acid (0.7 - 2.1 mmol/L) 2.2 H Magnesium (1.6 - 2.3 mg/dL) 1.6 Total Bilirubin (0.2 - 1.3 mg/dL) 0.7 Direct Bilirubin (< 0.4 mg/dL) 0.5 H AST (17 - 59 U/L) 22 ALT (21 - 72 U/L) 27 Alkaline Phosphatase (< 127 U/L) 86 Troponin I (<0.11 ng/ml) < 0.01 Total Protein (6.3 - 8.2 g/dL) 6.0 L Albumin (3.5 - 5.0 g/dL) 3.2 L Vitamin B12 (239 - 931 pg/mL) 407 Vit D 1,25-Dihyd Total Pending 1,25 Dihydroxy Vit D2 Pending 1,25 Dihydroxy Vit D3 Pending Folate (2.76 - 20.0 ng/mL) 17.7 Free T4 (0.78 - 2.44 ng/dL) 0.89 Total T3 (0.97 - 1.69 ng/mL) 0.72 L TSH &T3 &Free T4 Intrp (0.27 - 4.20 uIU/mL) 5.230 H Hematology CBC w Diff NO MAN DIFF REQ WBC (4.8 - 10.8 /CUMM) 6.2 RBC (4.70 - 6.10 /CUMM) 2.33 L Hgb (14.0 - 18.0 G/DL) 7.7 L Hct (42 - 52 %) 23.6 L MCV (80.0 - 94.0 FL) 101.2 H MCH (27.0 - 31.0 PG) 32.9 H MCHC (33.0 - 37.0 G/DL) 32.5 L RDW (11.5 - 14.5 %) 22.8 H Plt Count (130 - 400 /CUMM) 126 L MPV (7.4 - 10.4 FL) 8.9 Gran % (42.2 - 75.2 %) 72.4 Lymphocytes % (20.5 - 51.1 %) 13.4 L Monocytes % (1.7 - 9.3 %) 13.6 H Eosinophils % (0 - 5 %) 0.3 Basophils % (0.0 - 2.0 %) 0.3 Absolute Granulocytes (1.4 - 6.5 /CUMM) 4.5 Absolute Lymphocytes (1.2 - 3.4 /CUMM) 0.8 L Absolute Monocytes (0.10 - 0.60 /CUMM) 0.8 H Absolute Eosinophils (0.0 - 0.7 /CUMM) 0 Absolute Basophils (0.0 - 0.2 /CUMM) 0 Toxicology Urine Opiates Screen (>2000 NG/ML) > 4000.00 H Methadone Screen (>300 NG/ML) 66 Barbiturate Screen (>200 NG/ML) < 60 Ur Phencyclidine Scrn (>25 NG/ML) < 6.00 Amphetamines Screen (>1000 NG/ML) 465 U Benzodiazepines Scrn (>200 NG/ML) 119 Urine Cocaine Screen (>300 NG/ML) < 50 Urine Cannabis Screen (>50 NG/ML) 48.30 Urines Urine Color (YEL,AMB,STR) YEL Urine Clarity (CLEAR) CLEAR Urine pH (5.0 - 8.0) 6.0 Ur Specific [place] (1.001 - 1.035) >= 1.030 Urine Protein (NEG,<30 MG/DL) TRACE H Urine Ketones (NEG) NEG Urine Nitrite (NEG) NEG Urine Bilirubin (NEG) NEG Urine Urobilinogen (0.1 - 1.0 EU/dl) 1.0 Ur Leukocyte Esterase (NEG) TRACE H Ur Microscopic SEDIMENT EXAMINED Urine RBC (0 - 5 /HPF) RARE Urine WBC (0 - 2 /HPF) RARE Ur Epithelial Cells (NONE,FEW) RARE Urine Mucus (FEW,NONE) RARE Urine Hemoglobin (NEG) NEG Urine Glucose (N MG/DL) NEG Diffential Diagnosis: F32.9 major depressive disorder, unspecified F10.10 alcohol use disorder, recurrent, severe Currently, acute alcohol withdrawal syndrome. 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 The patient has been on a lorazepam drip until 1000 today, when it was discontinued at 0.5 mg/h, or 12 mg/24 hours. We would normally recommend that the initial oral dosing be calculated this 80% of this total, or 9.6 mg/24 hours , however, he is tolerating the current dosing of lorazepam 2 mg by mouth every 6 hours, or 8 mg/24 hours. There are PRN lorazepam doses available per CIWA. We will review the patient's scheduled lorazepam on a daily basis, considering also his as needed dosing, CIWA scores and vital signs. The medical team has been concerned about the patient detoxing from opiates, and reports that his new regimen will be Tylenol with Codeine, as well as Neurontin. The patient has been recently prescribed morphine sulfate ER 15 mg tablet #8 07/2027 days on 07/15/2017, and oxycodone HCl 10 mg tablet #112 tabs for 28 days on 07/12/2017. We will provide an opiate detox protocol in an addendum to this note, which can be used to relieve symptoms of withdrawal. Bupropion/Wellbutrin should probably not be restarted on this patient, a less he abstains 100% from alcohol; this medication can lower the seizure threshold which is exacerbated by chronic alcohol use. I have asked medical team to stop this medication His current dosing of sertraline/Zoloft 100 mg will likely need to be titrated up, but this can be done as an outpatient. For now, this medication can be held , to allow him to clear up. There is a likelihood that this medication perhaps is contributing to the patient's QTC prolongation. The last EKG on showed 80 BPM, sinus rhythm, QTC 508 ms. The patient is on a low to moderate dose of another serotonergic medication, duloxetine/Cymbalta, from his pain manager care management. While this medication may be helping to relieve depression, it is probably more useful at this time as a pain medication, and we suggest that it be continued for now. Provisional Treatment Plan: 1. Continue scheduled lorazepam 2 mg by mouth every 6 hours. Hold for oversedation or respiratory depression. Do not hold for sleep. We will review this tomorrow, and ask that it not be changed, unless the patient's mental status deteriorates, and he requires an increase. 2. Please continue the as needed lorazepam every hour, per CIWA protocol. 3. Continue high-dose thiamine therapy, sometimes ordered as 500 mg IM or IV 3 times a day for 3 days, followed by 250 mg IM or IV 3 times a day as long as the patient shows improvement. 4. Please use the attached opiate detox protocol (See Addendum) for symptomatic relief, as the patient's opiate pain medications are being moderated. 5. Social work consult
--- NOTE | 2017-07-19 18:23 | Cons- Podiatry ---
General Information and HPI Consulting Request Date of Consult: 07/19/17 Requested By: Huma Gardiner MD Reason for Consult: Lesion on right third toe amputation stump Source of Information: patient Exam Limitations: no limitations History of Present Illness: This is a 72-year-old male with multiple medical problems who was admitted on July 15 to [facility] for a combination of lactic acidosis, acute alcohol intoxication, and a right hip fracture status post fall at home. Podiatry is consulted for new onset lesion on the medial aspect of the stump of a partial right third toe amputation performed about 2 months ago for definitive treatment of osteomyelitis. The patient reports that after the procedure healed he began wearing a new pair shoes and felt abutment between the toes while walking. Allergies/Medications Allergies: Coded Allergies: No Known Allergies (03/05/17) Home Med List: Atorvastatin Calcium (Lipitor) 80 MG TABLET 1 TAB PO DAILY hld (Reported) Bupropion HCl (Wellbutrin XL) 300 MG TAB.ER.24H 1 TAB PO DAILY MENTAL HEALTH (Reported) Cyanocobalamin (Vitamin B-12) 1,000 MCG TABLET 1 TAB PO DAILY VITAMIN SUPPORT (Reported) Diclofenac Sodium (Voltaren) 1 % GEL..GRAM. 1 MAIKEL TOP 4 TIMES/DAY PRN Pain Duloxetine Hydrochloride (Cymbalta) 30 MG CAPSULE.DR 1 CAP PO DAILY nerve pain (Reported) Ferrous Sulfate 325 MG (65 MG IRON) TABLET 1 TAB PO BID SUPPLEMENT (Reported) Folic Acid 1 MG TABLET 1 MG PO DAILY Vitamin Gabapentin 600 MG TABLET 1 TAB PO Q6H PRN NERVE PAIN (Reported) Hydroxychloroquine Sulfate 200 MG TABLET 1 TAB PO BID Rheumatoid Arthritis ( Reported) Metoprolol Tartrate 25 MG TABLET 1 TAB PO DAILY HEART/BP (Reported) Morphine Sulfate 15 MG TABLET 1 TAB PO Q12H PAIN (Reported) Oxycodone HCl 10 MG TABLET 1 TAB PO Q4 HRS NEEDED PRN PAIN (Reported) Pantoprazole Sodium (Protonix) 40 MG TABLET.DR 1 TAB PO PRN GI (Reported) Prednisone 5 MG TABLET 1.5 TAB PO DAILY RA (Reported) Sertraline HCl (Zoloft) 100 MG TABLET 1 TAB PO DAILY MENTAL HEALTH (Reported) Sulfamethoxazole/Trimethoprim (Bactrim Ds Tablet) 800 MG-160 MG TABLET 1 TAB PO BID cellulitis Zolpidem Tartrate (Ambien) 5 MG TABLET 1 TAB PO QPMP PRN INSOMNIA (Reported) Current Medications: Current Medications Sig/Kim Start time Last Medication Dose Route Stop Time Status Admin Acetaminophen 1,000 MG Q6 PRN 07/18 0500 DC 07/19 IV 0835 Acetaminophen/ 1 TAB Q6 07/19 1200 AC 07/19 Codeine Phosphate PO 1717 Atorvastatin Calcium 80 MG DAILY 07/15 1000 AC 07/19 PO 0809 Bupropion HCl 300 MG DAILY 07/15 1000 DC 07/19 PO 0810 Cyanocobalamin 1,000 MCG DAILY 07/19 1000 AC 07/19 PO 1053 Duloxetine HCl 30 MG DAILY 07/15 1000 AC 07/19 PO 0809 Ferrous Sulfate 325 MG DAILY 07/17 1429 AC 07/19 PO 0810 Folic Acid 1 MG DAILY 07/19 1000 AC 07/19 PO 1053 Furosemide 20 MG ONCE ONE 07/19 1100 DC 07/19 IV 07/19 1101 1056 Gabapentin 600 MG Q6P PRN 07/15 0400 AC 07/19 PO 1716 Hydrocortisone 25 MG Q12 07/18 2200 DC 07/19 Sodium Succinate IV 0812 Hydroxychloroquine 200 MG BID 07/15 1000 AC 07/19 Sulfate PO 0810 Insulin Aspart 0 TIDAC 07/17 1700 DC SC Lorazepam 2 MG Q6 07/19 1200 AC 07/19 PO 1716 Lorazepam 50 MG Q24H 07/18 0730 DC 07/18 Sodium Chloride 500 ML IV 0755 Lorazepam 0 Q1P PRN 07/16 2345 AC 07/18 IV 0549 Magnesium Oxide 400 MG BID 07/19 1000 AC 07/19 PO 07/19 2201 1053 Metoprolol Tartrate 25 MG BID 07/19 2200 AC PO Morphine Sulfate 15 MG ONCE ONE 07/18 1915 DC 07/18 PO 07/18 1916 1940 Omeprazole 40 MG DAILY AC 07/20 0700 AC PO Oxycodone HCl 10 MG .STK-MED ONE 07/19 0255 DC PO 07/19 0256 Oxycodone HCl 10 MG ONCE ONE 07/18 2345 DC 07/19 PO 07/18 2346 0256 Pantoprazole Sodium 40 MG DAILY 07/17 1000 DC 07/19 IV 0810 Phosphate 250 MG PC AND AT BEDTIME 07/19 0900 DC 07/19 PO 07/19 0901 1053 Prednisone 7.5 MG DAILY 07/18 1000 AC 07/19 PO 0809 Sertraline HCl 100 MG DAILY 07/15 1000 AC 07/19 PO 0809 Thiamine HCl 500 MG TID 07/19 1000 AC 07/19 Sodium Chloride 250 ML IV 07/21 2301 1717 Past History Medical History Blood Transfusion Hx: Yes Neurological: NONE EENT: NONE Cardiovascular: CAD, hypertension, hyperlipidemia, mitral regurgitation Respiratory: NONE Gastrointestinal: GERD, hiatal hernia, umbilical hernia, diverticulosis coli hx colon TA/TVA Hepatic: NONE Renal: nephrolithiasis Musculoskeletal: chronic back pain, degen joint disease, falls, osteoarthritis, rheumatoid arthritis, hx osteo R foot Psychiatric: alcohol dependence (prev EtOH abuse), depression Endocrine: thyroid Ca Blood Disorders: anemia, B12 deficiency hx Fe def Cancer(s): prostate cancer, thyroid cancer HAND MOLDER/Reproductive: NONE Surgical History Pertinent Surgical History: appendectomy, CABG (x3), cataract removal, hip replacement (bilateral), prostatectomy, status post partial thyroidectomy s/p amputation of right 2nd and partial 3rd toes for osteomyelitis. Family History Relations & Conditions If Any: FATHER, , Age 81. FH: prostate cancer MOTHER (smoker). , Age 77; Cause: COPD (chronic obstructive pulmonary disease). Psychosocial History Who Do You Live With? spouse, child Services at Home: None Primary Language: Syriac Smoking Status: Former Smoker Living Will? no Power of Telephone Interviewer/HCP? no Functional Ability ADLs Independent: dressing, eating, toileting, bathing. Ambulation: independent, cane IADLs Independent: shopping, housework, finances, food prep, telephone, transportation , medication admin. Review of Systems Review of Systems: A 14 point review of systems was performed, and was found to be negative apart from the patient's complaints described above in the history of present illness. Exam & Diagnostic Data Vital Signs and I&O Vital Signs Date Time Temp Pulse Resp B/P B/P Pulse O2 O2 Flow FiO2 Mean Ox Delivery Rate 07/19 1657 Room Air 07/19 1600 98.0 80 20 128/89 98 Room Air 07/19 0800 97.6 80 20 136/72 96 Room Air 07/19 0600 70 22 138/78 07/19 0400 97.7 68 22 132/70 07/19 0400 95 Room Air 07/19 0200 70 22 121/67 07/19 0000 98.2 73 18 122/60 07/19 0000 95 Room Air 07/19 0000 98.2 73 18 12260 95 Room Air 07/18 2200 86 19 113/69 07/19 1999 98.2 73 19 118/60 07/19 1999 96 Room Air Intake & Output 07/19 0800 07/19 0000 07/18 0800 07/18 0000 Intake Total 655 3360 2270 956 350 330 Output Total 1300 300 550 445 600 Balance -645 3360 1970 406 -95 -270 Intake, IV 115 3310 1280 536 300 280 Intake, Oral 540 50 990 420 50 50 Number 1 1 1 Bowel Movements Output, Urine 1300 300 550 445 600 Physical Exam: Palpable pedal pulses bilaterally, normal temperature gradient both lower extremities, capillary refill time is 3 seconds to all 9 remaining digits. The patient is status post partial right third toe of dictation and a total right second toe amputation. Musculoskeletal exam is deferred secondary to the patient's acute injury. He has a large hallux abductovalgus deformity on the right foot and the distal aspect of the digit is abutting the medial aspect of the partial third toe amputation stump, leaving a ovoid 8 mm by 5 mm partial- thickness lesion with dermis exposed, but no acute signs of infection. Last 24 Hours of Labs: Laboratory Tests 07/19 07/19 0521 0515 Chemistry Sodium Cancelled Potassium Cancelled Chloride Cancelled Carbon Dioxide Cancelled Anion Gap Cancelled BUN Cancelled Creatinine Cancelled Glucose Cancelled Calcium Cancelled Phosphorus Cancelled Magnesium Cancelled Total Bilirubin Cancelled AST Cancelled ALT Cancelled Albumin Cancelled Hematology CBC w Diff NO MAN DIFF REQ WBC (4.8 - 10.8 /CUMM) 3.4 L RBC (4.70 - 6.10 /CUMM) 2.48 L Hgb (14.0 - 18.0 G/DL) 8.2 L Hct (42 - 52 %) 24.6 L MCV (80.0 - 94.0 FL) 99.5 H MCH (27.0 - 31.0 PG) 33.0 H MCHC (33.0 - 37.0 G/DL) 33.2 RDW (11.5 - 14.5 %) 22.3 H Plt Count (130 - 400 /CUMM) 135 MPV (7.4 - 10.4 FL) 7.4 Gran % (42.2 - 75.2 %) 77.8 H Lymphocytes % (20.5 - 51.1 %) 10.8 L Monocytes % (1.7 - 9.3 %) 11.2 H Eosinophils % (0 - 5 %) 0 Basophils % (0.0 - 2.0 %) 0.2 Absolute Granulocytes (1.4 - 6.5 /CUMM) 2.7 Absolute Lymphocytes (1.2 - 3.4 /CUMM) 0.4 L Absolute Monocytes (0.10 - 0.60 /CUMM) 0.4 Absolute Eosinophils (0.0 - 0.7 /CUMM) 0 Absolute Basophils (0.0 - 0.2 /CUMM) 0 Imaging Results: AP and lateral views of the right foot taken on July 17 There are extensive degenerative changes in the ankle, hindfoot, midfoot, and the toes. Patient is status post partial third toe amputation at the level of the proximal interphalangeal joint, and status post partial second ray resection including all of the toe and the metatarsal head. There is no gas, there is no soft tissue defect, there is no cortical erosion, there is no fracture. Assessment/Plan Assessment/Plan 72-year-old male with peripheral neuropathy likely stemming from chronic alcoholism status post partial right third toe amputation and partial second ray resection for the treatment of osteomyelitis with a partial-thickness pressure lesion on the medial aspect of the partial third toe amputation stump secondary to abutment with a large hallux abductovalgus deformity. The patient was seen and evaluated. Using a disposable #15 blade the lesion was debrided down to dermis, and dressed with antibiotic ointment and a Band-Aid. The x-rays from July 17 are reviewed, there is no clinical or radiographic evidence of acute infection. Case was discussed with the primary team, we will continue to follow the lesion and provide additional offloading pads between the digits if the Band-Aid is not sufficient. Otherwise, continued decubitus prophylaxis protocol at all times. I will follow this patient every other day until he is discharged, and follow-up with him on a weekly basis in the [facility] wound care center until the lesion is healed. Consult Acknowledgment - Thank you for your consult request.
[2017-07-20] VITALS (11 sets, daily range): BP systolic 102–151; BP diastolic 67–80
[2017-07-20 05:16] LABS: ABSOLUTE BASOPHIL COUNT 0 /CUMM (0.0-0.2); ABSOLUTE EOSINOPHIL COUNT 0 /CUMM (0.0-0.7); ABSOLUTE GRANULOCYTE CT 2.8 /CUMM (1.4-6.5); ABSOLUTE MONOCYTE COUNT 0.8 /CUMM (0.10-0.60); BASOPHIL % 0.4 % (0.0-2.0); EOSINOPHIL % 0.5 % (0-5); GRANULOCYTE % 60.2 % (42.2-75.2); HEMATOCRIT 25.7 % (42-52); MEAN CORPUSCULAR HGB 33.2 PG (27.0-31.0); MEAN CORPUSCULAR HGB CONC 33.3 G/DL (33.0-37.0); MEAN CORPUSCULAR VOLUME 99.6 FL (80.0-94.0); MEAN PLATELET VOLUME 7.3 FL (7.4-10.4); PLATELET COUNT 161 /CUMM (130-400); RBC DISTRIBUTION WIDTH 22.7 % (11.5-14.5); RED BLOOD CELL CT 2.58 /CUMM (4.70-6.10); WHITE BLOOD CELL COUNT 4.6 /CUMM (4.8-10.8)
--- NOTE | 2017-07-20 07:34 | PN- Resident CRCU ---
See Addendum Subjective HPI/CRCU Issues: -Comminuted fracture the right symphysis pubis see on CT -Acute anemia, unclear etiology, likely multifactorial -EtoH Withdrawal with Delerium -Right acute mildly-displaced greater trochanteric fracture 24 Hour Events: He was seen and examin today. He is alert, awake oriented X 1, still confused. he report only back pain. his CIWA scores 10-19 received a total of 6 mg of IV Ativan admission Ativan by mouth. He deny any Aud or visual hallucination, chest pain, heartracing. He is in + ve fluid balance of 1-2 L, He received 20 mg of IV lasix yesterday. Objective Vital Signs & I&O Last 8 Hrs of Vitals and I&O: Intake & Output 07/20 1600 07/20 0800 07/20 0000 07/19 1600 07/19 0800 07/19 0000 Intake Total 510 660 771 0112 2270 Output Total 1300 300 Balance 510 480 -645 3360 1970 Intake, IV 815 362 3869 1280 Intake, Oral 240 480 540 50 990 Output, Other Output, Urine 1300 300 Vital Signs Date Time Temp Pulse Resp B/P B/P Pulse O2 O2 Flow FiO2 Mean Ox Delivery Rate 07/20 0930 98.8 77 18 147/67 07/20 0828 72 158/72 07/20 0800 Room Air 07/20 0800 98.8 66 15 144/72 07/20 0800 98.8 66 15 144/72 96 07/20 0600 99.2 68 22 130/78 07/20 0514 99.2 74 24 148/78 07/20 0400 99.2 76 22 148/70 07/20 0200 98.4 76 32 135/70 Exam General Appearance: well developed/nourished, alert, awake, mildly agitated, in bilateral upper self-restraint Head: atraumatic, normal appearance Neck: normal inspection, supple Respiratory: normal breath sounds, chest non-tender, lungs clear Cardiovascular: regular rate/rhythm Gastrointestinal: normal bowel sounds, soft, non-tender Extremities: no edema, s/p 3rd right toe amputation Current Medications: Current Medications Sig/Kim Start time Last Medication Dose Route Stop Time Status Admin Acetaminophen 1,000 MG Q6 PRN 07/18 0500 DC 07/19 IV 0835 Acetaminophen/ 1 TAB Q6 07/19 1200 AC 07/20 Codeine Phosphate PO 0523 Atorvastatin Calcium 80 MG DAILY 07/15 1000 AC 07/20 PO 0827 Cyanocobalamin 1,000 MCG DAILY 07/19 1000 AC 07/20 PO 0827 Duloxetine HCl 30 MG DAILY 07/15 1000 AC 07/20 PO 0827 Ferrous Sulfate 325 MG DAILY 07/17 1429 AC 07/20 PO 0826 Folic Acid 1 MG DAILY 07/19 1000 AC 07/20 PO 0827 Furosemide 20 MG ONCE ONE 07/19 1100 DC 07/19 IV 07/19 1101 1056 Gabapentin 600 MG Q6P PRN 07/15 0400 AC 07/19 PO 1716 Hydroxychloroquine 200 MG BID 07/15 1000 AC 07/20 Sulfate PO 0827 Lorazepam 3 MG Q6 07/20 1200 AC PO Lorazepam 2 MG Q6 07/19 1200 DC 07/20 PO 0523 Lorazepam 50 MG Q24H 07/18 0730 DC 07/18 Sodium Chloride 500 ML IV 0755 Lorazepam 0 Q1P PRN 07/16 2345 AC 07/20 IV 0928 Magnesium Oxide 400 MG BID 07/20 1000 AC 07/20 PO 07/21 1001 0826 Magnesium Oxide 400 MG BID 07/19 1000 DC 07/19 PO 07/19 2201 2135 Metoprolol Tartrate 25 MG BID 07/19 2200 AC 07/20 PO 0828 Morphine Sulfate 2 MG ONCE ONE 07/20 0745 DC 07/20 IV 07/20 0746 0826 Omeprazole 40 MG DAILY AC 07/20 0700 AC 07/20 PO 0628 Phosphate 250 MG ONCE ONE 07/20 0730 DC 07/20 PO 07/20 0731 0826 Potassium Chloride 40 MEQ Q1H 07/20 0730 DC 07/20 PO 07/20 0831 0832 Prednisone 7.5 MG DAILY 07/18 1000 AC 07/20 PO 0827 Sertraline HCl 100 MG DAILY 07/15 1000 DC 07/19 PO 0809 Thiamine HCl 500 MG TID 07/19 1000 AC 07/19 Sodium Chloride 250 ML IV 07/21 2301 2135 Tramadol HCl 50 MG Q6P PRN 07/20 0745 AC PO Zolpidem Tartrate 5 MG AT BEDTIME 07/20 0045 AC 07/20 PO 0043 Results Results: Laboratory Tests 07/20/17 0400: Anion Gap 9, Estimated GFR > 60, Glucose 82, Calcium 8.5, Phosphorus 3.2, Magnesium 1.5 L, Total Bilirubin 0.9, AST 20, ALT 26, [id number] Pept Pending, Albumin 2.8 L, CBC w Diff NO MAN DIFF REQ, RBC 2.58 L, MCV 99.6 H, MCH 33.2 H, MCHC 33.3, RDW 22.7 H, MPV 7.3 L, Gran % 60.2, Lymphocytes % 22.6 , Monocytes % 16.3 H, Eosinophils % 0.5, Basophils % 0.4, Absolute Granulocytes 2.8, Absolute Lymphocytes 1.0 L, Absolute Monocytes 0.8 H, Absolute Eosinophils 0, Absolute Basophils 0 Impression/Plan Impression/Problem List Impression: Problem List -Comminuted fracture the right symphysis pubis see on CT -Acute anemia, unclear etiology, likely multifactorial -EtoH Withdrawal -Right acute mildly-displaced greater trochanteric fracture -History of CAD s/p CABG -Hx of HFpEF. -Rheumatoid arthritis on Plaquinel / Prednisone, possible adrenal insufficiency -GERD -Peripheral neuropathy Plan: -Continue omeprazole by mouth -continue the patient prednisone home dose -Patient become hypotensive will restart stress dose of hydrocortisone. -DC Novolog coverage as the patient a diabetic and off hydrocortisone -Change patient Ativan 2 mg every 6 to Q4HRs. -Continue Ativan IV when necessary per CIWA protocol -High-dose thiamine, by mouth folic acid and vitamin B12 -Continue Tylenol No. 3 every 6 hr. and start tramadol every 6 as needed. -Continue iron supplement. -Psychiatric consultation appreciated -Podiatry consultation appreciated -1 dose of 20 mg IV Lasix tomorrow. -Repeat electrolytes accordingly -We'll continue monitor H&H goal > 8 g/dl. -Patient will need outpatient swage tender evaluation -Encourage oral intake -DVT prophylaxis:Alps -Full code. Problem List: 1. Pubic ramus fracture 2. Pubic bone fracture 3. Alcohol withdrawal delirium 4. Hypokalemia Pain Ratin Pain Location: back Pain Goal: Pain 4 or less Pain Plan: see A/P Tomorrow's Labs & Rationales: cbc Icu Plan DVT/Prophylaxis: mechanical Code Status: Full Code
--- NOTE | 2017-07-20 09:50 | PN- Infect Dx ---
Subjective Subjective: Afebrile on steroids. He complains of right hip pain. Objective Last 24 Hrs of Vital Signs/I&O Vital Signs Date Time Temp Pulse Resp B/P B/P Pulse O2 O2 Flow FiO2 Mean Ox Delivery Rate 07/21 0728 72 158/72 07/20 0800 Room Air 07/20 0800 98.8 66 15 144/72 07/20 0800 98.8 66 15 144/72 96 07/20 0600 99.2 68 22 130/78 07/20 0514 99.2 74 24 148/78 07/20 0400 99.2 76 22 148/70 07/20 0200 98.4 76 32 135/70 07/20 0144 98.4 66 18 140/80 07/20 0000 98.4 68 24 144/78 07/20 0000 98.4 68 26 144/78 97 Room Air 07/19 2200 98.1 78 26 128/70 07/19 2135 80 106/60 07/19 2000 98.1 84 26 124/74 07/19 1657 Room Air 07/19 1600 98.0 80 20 128/89 98 Room Air Intake & Output 07/20 1600 07/20 0800 07/20 0000 Intake Total 510 480 Output Total Balance 510 480 Intake, IV 270 Intake, Oral 240 480 Output, Other Output, Urine Physical Exam Other Physical Findings: He is awake and alert, in no acute distress Lungs are clear Heart regular rhythm with no murmur Extremities right third toe with a small lesion, with no significant erythema and no drainage Results Last 24 Hours of Lab Results: Laboratory Tests 07/20 0400 Chemistry Sodium (137 - 145 mmol/L) 141 Potassium (3.5 - 5.1 mmol/L) 3.2 L Chloride (98 - 107 mmol/L) 105 Carbon Dioxide (22 - 30 mmol/L) 27 Anion Gap (5 - 16) 9 BUN (9 - 20 mg/dL) 16 Creatinine (0.7 - 1.2 mg/dL) 0.8 Estimated GFR (>60 ml/min) > 60 Glucose (65 - 99 mg/dL) 82 Calcium (8.4 - 10.2 mg/dL) 8.5 Phosphorus (2.5 - 4.5 mg/dL) 3.2 Magnesium (1.6 - 2.3 mg/dL) 1.5 L Total Bilirubin (0.2 - 1.3 mg/dL) 0.9 AST (17 - 59 U/L) 20 ALT (21 - 72 U/L) 26 [id number] Pept (<125 pg/mL) Pending Albumin (3.5 - 5.0 g/dL) 2.8 L Hematology CBC w Diff NO MAN DIFF REQ WBC (4.8 - 10.8 /CUMM) 4.6 L RBC (4.70 - 6.10 /CUMM) 2.58 L Hgb (14.0 - 18.0 G/DL) 8.6 L Hct (42 - 52 %) 25.7 L MCV (80.0 - 94.0 FL) 99.6 H MCH (27.0 - 31.0 PG) 33.2 H MCHC (33.0 - 37.0 G/DL) 33.3 RDW (11.5 - 14.5 %) 22.7 H Plt Count (130 - 400 /CUMM) 161 MPV (7.4 - 10.4 FL) 7.3 L Gran % (42.2 - 75.2 %) 60.2 Lymphocytes % (20.5 - 51.1 %) 22.6 Monocytes % (1.7 - 9.3 %) 16.3 H Eosinophils % (0 - 5 %) 0.5 Basophils % (0.0 - 2.0 %) 0.4 Absolute Granulocytes (1.4 - 6.5 /CUMM) 2.8 Absolute Lymphocytes (1.2 - 3.4 /CUMM) 1.0 L Absolute Monocytes (0.10 - 0.60 /CUMM) 0.8 H Absolute Eosinophils (0.0 - 0.7 /CUMM) 0 Absolute Basophils (0.0 - 0.2 /CUMM) 0 Last 24 Hours of Antwan Results: Blood cultures July 16 negative Assessment/Plan ID Impression: Stable, with temperatures and white blood cell count remaining normal (on steroids) and off antibiotics with no evidence for any active infectious process. Podiatry input appreciated with mild debridement of the right third toe lesion performed down to the dermis, with no concern for osteomyelitis. Orthopedic follow-up also noted regarding his right hip and pubic symphysis fractures, with conservative management recommended. Suggestion: 1. Continue to follow off antibiotics Will no longer follow at this time but please call with any questions
--- NOTE | 2017-07-20 10:41 | PN- Psychiatry ---
Assessment/Plan Impression: The patient was weaned off the alcohol detox lorazepam 0.5 mg/hour (12 mg/day) on 07/19/17 @ 1000, to lorazepam 2 mg PO q 6 hours with PRN dosing. His CIWA scores stared to elevate that day at 2200. The medical team has increased his scheduled lorazepam to lorazepam 2 mg PO q 4 hours (12 mg/day). CIWA as of 07/20/17 @ 0930: [id number] VS as of 07/20/17 @ 0930: 147/67, 77, 98.8, 18, 96% RA, pain 8 VS as of 07/19/17 @ 0800: 136/72, 80, 97.6, 20, 96% RA, pain 6 Lorazepam 6 mg scheduled + lorazepam 6 mg PRN = 12 mg/last 24 hours His alcohol detox course may continue to wax and wane. The last EKG on 07/16/17 showed SR 80, QTc 508 mS. 07/20/17: Potassium 3.2L and magnesium 1.5L Suggestion: 1. Continue scheduled lorazepam 2 mg by mouth every 4 hours. Hold for oversedation or respiratory depression. Do not hold for sleep. We will review this tomorrow, and ask that it not be changed, unless the patient's mental status deteriorates, and he requires an increase. 2. Please continue the as needed lorazepam every hour, per CINV protocol. 3. Continue high-dose thiamine therapy, currently ordered as 500 mg IM or IV 3 times a day. 4. Please use the attached opiate detox protocol (See Addendum) for symptomatic relief, as the patient's opiate pain medications are being moderated. 5. Social work consult 6. Please add a multivitamin PO daily 7. Repeat EKG, in case haloperidol is needed for severe agitation. 8. Replete potassium and magnesium to the upper portions of their normal ranges. 9. If violent or severe agitation, consider haloperidol 1 mg PO, or IM, if unable to take PO, 2X/day, as needed. Hold for QTc greater than 475 mS or arrhythmia; hold for hypokalemia or hypomagnesemia, hold for oversedation or respiratory depression. You will need to monitor EKG and potassium and magnesium. We will continue to follow along with you. Subjective Subjective: The patient is drowsy, but arousable, oriented to name, town, month, but not day , date, year. He is calm and cooperative, and in no apparent distress. He is not in any mechanical restraints. He reports visual distortions, which he calls hallucinations. He denies tactile or auditory hallucinations. He presents no hanna delusions. He denies SI or HI. Poor sleep last night. Review of Systems Neurological/Psychological: Reports: confusion. Objective Last 24 Hrs of Vital Signs/I&O Vital Signs Date Time Temp Pulse Resp B/P B/P Pulse O2 O2 Flow FiO2 Mean Ox Delivery Rate 07/20 0930 98.8 77 18 147/67 07/20 0828 72 158/72 07/20 0800 Room Air 07/20 0800 98.8 66 15 144/72 07/20 0800 98.8 66 15 144/72 96 07/20 0600 99.2 68 22 130/78 07/20 0514 99.2 74 24 148/78 07/20 0400 99.2 76 22 148/70 07/20 0200 98.4 76 32 135/70 07/20 0144 98.4 66 18 140/80 07/20 0000 98.4 68 24 144/78 07/20 0000 98.4 68 26 144/78 97 Room Air 07/19 2200 98.1 78 26 128/70 07/19 2135 80 106/60 07/19 2000 98.1 84 26 124/74 07/19 1657 Room Air 07/19 1600 98.0 80 20 128/89 98 Room Air Intake & Output 07/20 1600 07/20 0800 07/20 0000 Intake Total 510 480 Output Total Balance 510 480 Intake, IV 270 Intake, Oral 240 480 Output, Other Output, Urine Physical Exam: Not performed Physical Exam General Appearance: no apparent distress, lethargic Current Medications: Current Medications Sig/Kim Start time Last Medication Dose Route Stop Time Status Admin Acetaminophen 1,000 MG Q6 PRN 07/18 0500 DC 07/19 IV 0835 Acetaminophen/ 1 TAB Q6 07/19 1200 AC 07/20 Codeine Phosphate PO 0523 Atorvastatin Calcium 80 MG DAILY 07/15 1000 AC 07/20 PO 0827 Cyanocobalamin 1,000 MCG DAILY 07/19 1000 AC 07/20 PO 0827 Duloxetine HCl 30 MG DAILY 07/15 1000 AC 07/20 PO 0827 Ferrous Sulfate 325 MG DAILY 07/17 1429 AC 07/20 PO 0826 Folic Acid 1 MG DAILY 07/19 1000 AC 07/20 PO 0827 Furosemide 20 MG ONCE ONE 07/19 1100 DC 07/19 IV 07/19 1101 1056 Gabapentin 600 MG Q6P PRN 07/15 0400 AC 07/19 PO 1716 Hydroxychloroquine 200 MG BID 07/15 1000 AC 07/20 Sulfate PO 08 Lorazepam 2 MG Q4 07/20 1400 AC PO Lorazepam 3 MG Q6 07/20 1200 DC PO Lorazepam 2 MG Q6 07/19 1200 DC 07/20 PO 0523 Lorazepam 50 MG Q24H 07/18 0730 DC 07/18 Sodium Chloride 500 ML IV 0755 Lorazepam 0 Q1P PRN 07/16 2345 AC 07/20 IV 0928 Magnesium Oxide 400 MG BID 07/20 1000 AC 07/20 PO 07/21 1001 0826 Magnesium Oxide 400 MG BID 07/19 1000 DC 07/19 PO 07/19 2201 2135 Metoprolol Tartrate 25 MG BID 07/19 2200 AC 07/20 PO 0828 Morphine Sulfate 2 MG ONCE ONE 07/20 0745 DC 07/20 IV 07/20 0746 0826 Omeprazole 40 MG DAILY AC 07/20 0700 AC 07/20 PO 0628 Phosphate 250 MG ONCE ONE 07/20 0730 DC 07/20 PO 07/20 0731 0826 Potassium Chloride 40 MEQ Q1H 07/20 0730 DC 07/20 PO 07/20 0831 0832 Prednisone 7.5 MG DAILY 07/18 1000 AC 07/20 PO 0827 Sertraline HCl 100 MG DAILY 07/15 1000 DC 07/19 PO 0809 Thiamine HCl 500 MG TID 07/19 1000 AC 07/20 Sodium Chloride 250 ML IV 07/21 2301 1014 Tramadol HCl 50 MG Q6P PRN 07/20 0745 AC PO Zolpidem Tartrate 5 MG AT BEDTIME 07/20 0045 AC 07/20 PO 0043 Results Last 24 Hrs of Labs/Mics: Laboratory Tests 07/20 0400 Chemistry Sodium (137 - 145 mmol/L) 141 Potassium (3.5 - 5.1 mmol/L) 3.2 L Chloride (98 - 107 mmol/L) 105 Carbon Dioxide (22 - 30 mmol/L) 27 Anion Gap (5 - 16) 9 BUN (9 - 20 mg/dL) 16 Creatinine (0.7 - 1.2 mg/dL) 0.8 Estimated GFR (>60 ml/min) > 60 Glucose (65 - 99 mg/dL) 82 Calcium (8.4 - 10.2 mg/dL) 8.5 Phosphorus (2.5 - 4.5 mg/dL) 3.2 Magnesium (1.6 - 2.3 mg/dL) 1.5 L Total Bilirubin (0.2 - 1.3 mg/dL) 0.9 AST (17 - 59 U/L) 20 ALT (21 - 72 U/L) 26 Jkc-R-Puhadoihbop Pept (<125 pg/mL) 3970 H Albumin (3.5 - 5.0 g/dL) 2.8 L Hematology CBC w Diff NO MAN DIFF REQ WBC (4.8 - 10.8 /CUMM) 4.6 L RBC (4.70 - 6.10 /CUMM) 2.58 L Hgb (14.0 - 18.0 G/DL) 8.6 L Hct (42 - 52 %) 25.7 L MCV (80.0 - 94.0 FL) 99.6 H MCH (27.0 - 31.0 PG) 33.2 H MCHC (33.0 - 37.0 G/DL) 33.3 RDW (11.5 - 14.5 %) 22.7 H Plt Count (130 - 400 /CUMM) 161 MPV (7.4 - 10.4 FL) 7.3 L Gran % (42.2 - 75.2 %) 60.2 Lymphocytes % (20.5 - 51.1 %) 22.6 Monocytes % (1.7 - 9.3 %) 16.3 H Eosinophils % (0 - 5 %) 0.5 Basophils % (0.0 - 2.0 %) 0.4 Absolute Granulocytes (1.4 - 6.5 /CUMM) 2.8 Absolute Lymphocytes (1.2 - 3.4 /CUMM) 1.0 L Absolute Monocytes (0.10 - 0.60 /CUMM) 0.8 H Absolute Eosinophils (0.0 - 0.7 /CUMM) 0 Absolute Basophils (0.0 - 0.2 /CUMM) 0
--- NOTE | 2017-07-20 11:59 | PN- Endocrinology ---
Assessment/Plan Endoscopy Assessment: 72 y/o male with PMH CAD s/p CABG, HTN, pulmonary hypertension, GERD, diverticulosis, nephrolithiasis, depression, peripheral neuropathy, rheumatoid arthritis on prednisone and plaquenil, avascular necrosis s/p bilateral hip replacements and on pain medication chronically, was admitted for right greater trochanter fracture after mechanical fall. He was hypotensive last night. His BP improved after he received stress dose of steroid. 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 Patient was put on stress dose of steroid-- hydrocortisone 50mg iv every 12 hours on 07/17/2017. On 07/18/2017, Hydrocortisone was decreased to 25 mg iv twice a day. On 07/19/2017, stress dose of steroid was discontinued. He was put on Prednisone 7.5 mg daily which is the dosage he was on prior to admission. Repeat TFT-- TSH 1.22, free T4 0.73; anti TPO < 28 and anti TG 16. Plan: 1. I have mentioned to the patient that the evaluation and treatment of steroid induced osteopororsis should be done as outpatient. 2. continue prednisone 7.5 mg daily. 3. replete K and Mg. 4. continue monitoring vital sign and electrolytes. Subjective Subjective: He stated that he feels well. Objective Last 24 Hrs of Vital Signs/I&O Vital Signs Date Time Temp Pulse Resp B/P B/P Pulse O2 O2 Flow FiO2 Mean Ox Delivery Rate 07/20 0930 98.8 77 18 147/67 07/20 0828 72 158/72 07/20 0800 Room Air 07/20 0800 98.8 66 15 144/72 07/20 0800 98.8 66 15 144/72 96 07/20 0600 99.2 68 22 130/78 07/20 0514 99.2 74 24 148/78 07/20 0400 99.2 76 22 148/70 07/20 0200 98.4 76 32 135/70 07/20 0144 98.4 66 18 140/80 07/20 0000 98.4 68 24 144/78 07/20 0000 98.4 68 26 144/78 97 Room Air 07/19 2200 98.1 78 26 128/70 07/19 2135 80 106/60 07/19 2000 98.1 84 26 124/74 07/19 1657 Room Air 07/19 1600 98.0 80 20 128/89 98 Room Air Intake & Output 07/20 1600 07/20 0800 07/20 0000 Intake Total 510 480 Output Total Balance 510 480 Intake, IV 270 Intake, Oral 240 480 Output, Other Output, Urine Results Pertinent Lab/Antwan Results: Laboratory Tests 07/20 0400 Chemistry Sodium (137 - 145 mmol/L) 141 Potassium (3.5 - 5.1 mmol/L) 3.2 L Chloride (98 - 107 mmol/L) 105 Carbon Dioxide (22 - 30 mmol/L) 27 Anion Gap (5 - 16) 9 BUN (9 - 20 mg/dL) 16 Creatinine (0.7 - 1.2 mg/dL) 0.8 Estimated GFR (>60 ml/min) > 60 Glucose (65 - 99 mg/dL) 82 Calcium (8.4 - 10.2 mg/dL) 8.5 Phosphorus (2.5 - 4.5 mg/dL) 3.2 Magnesium (1.6 - 2.3 mg/dL) 1.5 L Total Bilirubin (0.2 - 1.3 mg/dL) 0.9 AST (17 - 59 U/L) 20 ALT (21 - 72 U/L) 26 [id number]-Wkozifkmmmh Pept (<125 pg/mL) 3970 H Albumin (3.5 - 5.0 g/dL) 2.8 L Hematology CBC w Diff NO MAN DIFF REQ WBC (4.8 - 10.8 /CUMM) 4.6 L RBC (4.70 - 6.10 /CUMM) 2.58 L Hgb (14.0 - 18.0 G/DL) 8.6 L Hct (42 - 52 %) 25.7 L MCV (80.0 - 94.0 FL) 99.6 H MCH (27.0 - 31.0 PG) 33.2 H MCHC (33.0 - 37.0 G/DL) 33.3 RDW (11.5 - 14.5 %) 22.7 H Plt Count (130 - 400 /CUMM) 161 MPV (7.4 - 10.4 FL) 7.3 L Gran % (42.2 - 75.2 %) 60.2 Lymphocytes % (20.5 - 51.1 %) 22.6 Monocytes % (1.7 - 9.3 %) 16.3 H Eosinophils % (0 - 5 %) 0.5 Basophils % (0.0 - 2.0 %) 0.4 Absolute Granulocytes (1.4 - 6.5 /CUMM) 2.8 Absolute Lymphocytes (1.2 - 3.4 /CUMM) 1.0 L Absolute Monocytes (0.10 - 0.60 /CUMM) 0.8 H Absolute Eosinophils (0.0 - 0.7 /CUMM) 0 Absolute Basophils (0.0 - 0.2 /CUMM) 0
--- NOTE | 2017-07-20 12:32 | PN- Podiatry ---
Subjective Subjective: This is a 72-year-old male with multiple medical problems who was admitted on July 15 to [facility] for a combination of lactic acidosis, acute alcohol intoxication, and a right hip fracture status post fall at home. Podiatry is consulted for new onset lesion on the medial aspect of the stump of a partial right third toe amputation performed about 2 months ago for definitive treatment of osteomyelitis. Review of Systems: A 14 point review of systems was performed, and was found to be negative apart from the patient's complaints described above in the history of present illness. Objective Vital Signs and I&Os Vital Signs Date Time Temp Pulse Resp B/P B/P Pulse O2 O2 Flow FiO2 Mean Ox Delivery Rate 07/20 0930 98.8 77 18 147/67 07/20 0828 72 158/72 07/20 0800 Room Air 07/20 0800 98.8 66 15 144/72 07/20 0800 98.8 66 15 144/72 96 07/20 0600 99.2 68 22 130/78 07/20 0514 99.2 74 24 148/78 07/20 0400 99.2 76 22 148/70 07/20 0200 98.4 76 32 135/70 07/20 0144 98.4 66 18 140/80 07/20 0000 98.4 68 24 144/78 07/20 0000 98.4 68 26 144/78 97 Room Air 07/19 2200 98.1 78 26 128/70 07/19 2135 80 106/60 07/19 2000 98.1 84 26 124/74 07/19 1657 Room Air 07/19 1600 98.0 80 20 128/89 98 Room Air Intake & Output 07/20 1600 07/20 0800 07/20 0000 07/19 1600 07/19 0800 07/19 0000 Intake Total 510 591 581 1477 2270 Output Total 1300 300 Balance 510 480 -645 3360 1970 Intake, IV 049 022 2689 1280 Intake, Oral 240 480 540 50 990 Output, Other Output, Urine 1300 300 Physical Exam: Palpable pedal pulses bilaterally, normal temperature gradient both lower extremities, capillary refill time is 3 seconds to all 9 remaining digits. The patient is status post partial right third toe of dictation and a total right second toe amputation. Musculoskeletal exam is deferred secondary to the patient's acute injury. He has a large hallux abductovalgus deformity on the right foot and the distal aspect of the digit is abutting the medial aspect of the partial third toe amputation stump, leaving a ovoid 8 mm by 5 mm partial- thickness lesion with dermis exposed, but no acute signs of infection. Current Medications: Current Medications Sig/Kim Start time Last Medication Dose Route Stop Time Status Admin Acetaminophen/ 1 TAB Q6 07/19 1200 AC 07/20 Codeine Phosphate PO 1148 Atorvastatin Calcium 80 MG DAILY 07/15 1000 AC 07/20 PO 0827 Cyanocobalamin 1,000 MCG DAILY 07/19 1000 AC 07/20 PO 0827 Duloxetine HCl 30 MG DAILY 07/15 1000 AC 07/20 PO 0827 Ferrous Sulfate 325 MG DAILY 07/17 1429 AC 07/20 PO 0826 Folic Acid 1 MG DAILY 07/19 1000 AC 07/20 PO 0827 Gabapentin 600 MG Q6P PRN 07/15 0400 AC 07/19 PO 1716 Hydroxychloroquine 200 MG BID 07/15 1000 AC 07/20 Sulfate PO 0827 Lorazepam 2 MG Q4 07/20 1400 DC PO Lorazepam 3 MG Q6 07/20 1200 DC PO Lorazepam 2 MG Q4 07/20 1100 AC 07/20 PO 1110 Lorazepam 2 MG Q6 07/19 1200 DC 07/20 PO 0523 Lorazepam 0 Q1P PRN 07/16 2345 AC 07/20 IV 0928 Magnesium Oxide 400 MG BID 07/20 1000 AC 07/20 PO 07/21 1001 0826 Magnesium Oxide 400 MG BID 07/19 1000 DC 07/19 PO 07/19 2201 2135 Metoprolol Tartrate 25 MG BID 07/19 2200 AC 07/20 PO 0828 Morphine Sulfate 2 MG ONCE ONE 07/20 0745 DC 07/20 IV 07/20 0746 0826 Multivitamins 1 TAB DAILY 07/20 1100 AC PO Omeprazole 40 MG DAILY AC 07/20 0700 AC 07/20 PO 0628 Phosphate 250 MG ONCE ONE 07/20 0730 DC 07/20 PO 07/20 0731 0826 Potassium Chloride 40 MEQ Q1H 07/20 0730 DC 07/20 PO 07/20 0831 0832 Prednisone 7.5 MG DAILY 07/18 1000 AC 07/20 PO 0827 Sertraline HCl 100 MG DAILY 07/15 1000 DC 07/19 PO 0809 Thiamine HCl 500 MG TID 07/19 1000 AC 07/20 Sodium Chloride 250 ML IV 07/21 2301 1014 Tramadol HCl 50 MG Q6P PRN 07/20 0745 AC 07/20 PO 1047 Zolpidem Tartrate 5 MG AT BEDTIME 07/20 0045 AC 07/20 PO 0043 Results Last 48 Hours of Labs: Laboratory Tests 07/20 07/19 0400 0521 Chemistry Sodium (137 - 145 mmol/L) 141 Cancelled Potassium (3.5 - 5.1 mmol/L) 3.2 L Cancelled Chloride (98 - 107 mmol/L) 105 Cancelled Carbon Dioxide (22 - 30 mmol/L) 27 Cancelled Anion Gap (5 - 16) 9 Cancelled BUN (9 - 20 mg/dL) 16 Cancelled Creatinine (0.7 - 1.2 mg/dL) 0.8 Cancelled Estimated GFR (>60 ml/min) > 60 Glucose (65 - 99 mg/dL) 82 Cancelled Calcium (8.4 - 10.2 mg/dL) 8.5 Cancelled Phosphorus (2.5 - 4.5 mg/dL) 3.2 Cancelled Magnesium (1.6 - 2.3 mg/dL) 1.5 L Cancelled Total Bilirubin (0.2 - 1.3 mg/dL) 0.9 Cancelled AST (17 - 59 U/L) 20 Cancelled ALT (21 - 72 U/L) 26 Cancelled Epg-K-Jwpxtskeuri Pept (<125 pg/mL) 3970 H Albumin (3.5 - 5.0 g/dL) 2.8 L Cancelled Hematology CBC w Diff NO MAN DIFF REQ WBC (4.8 - 10.8 /CUMM) 4.6 L RBC (4.70 - 6.10 /CUMM) 2.58 L Hgb (14.0 - 18.0 G/DL) 8.6 L Hct (42 - 52 %) 25.7 L MCV (80.0 - 94.0 FL) 99.6 H MCH (27.0 - 31.0 PG) 33.2 H MCHC (33.0 - 37.0 G/DL) 33.3 RDW (11.5 - 14.5 %) 22.7 H Plt Count (130 - 400 /CUMM) 161 MPV (7.4 - 10.4 FL) 7.3 L Gran % (42.2 - 75.2 %) 60.2 Lymphocytes % (20.5 - 51.1 %) 22.6 Monocytes % (1.7 - 9.3 %) 16.3 H Eosinophils % (0 - 5 %) 0.5 Basophils % (0.0 - 2.0 %) 0.4 Absolute Granulocytes (1.4 - 6.5 /CUMM) 2.8 Absolute Lymphocytes (1.2 - 3.4 /CUMM) 1.0 L Absolute Monocytes (0.10 - 0.60 /CUMM) 0.8 H Absolute Eosinophils (0.0 - 0.7 /CUMM) 0 Absolute Basophils (0.0 - 0.2 /CUMM) 0 07/19 0515 Hematology CBC w Diff NO MAN DIFF REQ WBC (4.8 - 10.8 /CUMM) 3.4 L RBC (4.70 - 6.10 /CUMM) 2.48 L Hgb (14.0 - 18.0 G/DL) 8.2 L Hct (42 - 52 %) 24.6 L MCV (80.0 - 94.0 FL) 99.5 H MCH (27.0 - 31.0 PG) 33.0 H MCHC (33.0 - 37.0 G/DL) 33.2 RDW (11.5 - 14.5 %) 22.3 H Plt Count (130 - 400 /CUMM) 135 MPV (7.4 - 10.4 FL) 7.4 Gran % (42.2 - 75.2 %) 77.8 H Lymphocytes % (20.5 - 51.1 %) 10.8 L Monocytes % (1.7 - 9.3 %) 11.2 H Eosinophils % (0 - 5 %) 0 Basophils % (0.0 - 2.0 %) 0.2 Absolute Granulocytes (1.4 - 6.5 /CUMM) 2.7 Absolute Lymphocytes (1.2 - 3.4 /CUMM) 0.4 L Absolute Monocytes (0.10 - 0.60 /CUMM) 0.4 Absolute Eosinophils (0.0 - 0.7 /CUMM) 0 Absolute Basophils (0.0 - 0.2 /CUMM) 0 Assessment/Plan Assessment/Plan 72-year-old male with peripheral neuropathy likely stemming from chronic alcoholism status post partial right third toe amputation and partial second ray resection for the treatment of osteomyelitis with a partial-thickness pressure lesion on the medial aspect of the partial third toe amputation stump secondary to abutment with a large hallux abductovalgus deformity. The patient was seen and evaluated. The x-rays from July 17 are reviewed, there is no clinical or radiographic evidence of acute infection. Case was discussed with the primary team, we will continue to follow the lesion and provide additional offloading pads between the digits if the Band-Aid is not sufficient. Otherwise, continued decubitus prophylaxis protocol at all times. Will continue to follow. Core Measures Venous Thromboembolism VTE Risk Factors Age>40 No Mechanical VTE Prophylaxis d/t N/A MechProphylax Ordered No VTE Pharm Prophylaxis d/t NA PharmProphylax ordered
--- NOTE | 2017-07-20 15:25 | Transfer of Care Summary ---
Hospital Course Course Hospital Course: 72 yo M with h/o CAD s/p CABG, HTN, RA on prednisone and plaquenil, prostate and thyroid cancer, diastolic heart failure with pulmonary hypertension, s/p second toe and partial third toe amputation of right foot for osteomyelitis, chronic pain on opiates (follows with pain management), previous alcohol dependence with B12 deficiency and neuropathy, is here for evaluation right hip pain s/p mechanical fall at home. Patient reports that for the past 2 days, he has been feeling off-balance, unsteady on his feet and he was trying to walk around holding on to objects. He was trying to feed his cat, when he fell forward hitting his head on the wall and landing on to the right hip. He has undergone bilateral hip replacements for avascular necrosis. Of note, patient was seen in ER on July 11 for right third toe infection/ cellulitis and was placed on Bactrim for that (day 4 at admission). Problem List -Comminuted fracture the right symphysis pubis see on CT -Acute anemia, unclear etiology, likely multifactorial -EtoH Withdrawal -Right acute mildly-displaced greater trochanteric fracture -History of CAD s/p CABG -Hx of HFpEF. -Rheumatoid arthritis on Plaquinel / Prednisone, possible adrenal insufficiency -GERD -Peripheral neuropathy ICU course: Patient was transferred from general medicine floor, due to low blood pressure and hemoglobin below 6, right internal jugular central line was placed on the patient was started on Levophed that was discontinued after 2-3 hrs after he received 100 mg of IV hydrocortisone, also the patient received 1 L normal saline bolus. CAT scan of abdomen and pelvis showed right symphysis pubis and remic bones fracture, orthopedic contacted and recommended conservative management. Patient received IV Unasyn for 2 days for questionable aspiration pneumonia that was discontinue on Wednesday per ID recommendation. Also patient was placed on Ativan drip that was tapered to 2 mg every 6 CURRENTLY on 1.5 mg Q6hr, patient currently on high thiamine dose protocol. Podiatry evaluate the patient. We discontinue his hydrocortisone as recommended by estimating engineer after tapering and patient was restarted on his chronic prednisone dose for rheumatoid arthritis. Also received 1 dose of IV Lasix due to his history of diastolic congestive heart failure. For his pain medication patient was started on Ms contin 15 mg BID, OXycoden 10 mg q6hr and morphine IV as needed for pain. Follow-up: -Ativan taper per psych Recommendation -Continue high thiamine dose protocol. -Podiatry recommendation -Patient will need outpatient hematology follow-up -Monitor H&H goal hemoglobin more than 8. -Adjust the pain medications accordingly. Assessment/Plan: See above
--- NOTE | 2017-07-20 20:53 | Event Note ---
Event Note Event Note: I was notified by nursing staff that the patient's family/daughter Pau had some concerns about his current medications. I gave her the update about the clinical condition of the patient and the fact that he was still on Ativan taper according to the standard protocol, psychiatry service has been on board and has been guiding us with the alcohol detox, opiate detox protocol as well. After giving her all the facts and information, and explaining to her the risks of lowering the dose of Ativan from what we are going right now, including the risk of seizures, delirium tremens which has a serious risk of mortality as well. She mentioned her concerns that maybe Ativan is the cause of the persistent confusion, and if there was a way to reduce the doseage of Ativan. Also, that he was unsafe alone. The patient was trying unsafe ambulation repeatedly earlier (~ 30 min prior to this, nursing staff had notified me and I had reassessed the situation then). He was still confused and was trying to roll over, trying unsafe ambulation during again, so I ordered a 1:1 sitter for high fall risk, confusion, agitation that he had then. She was explained about the standard of care in treating alcohol withdrawal symptoms and the fact that he was getting it alongside the psychiatry service guiding the therapy, to that she mentioned that she is the decision-maker for the patient and understood the best interest of the patient than anyone else, and requested to lower the dose of Ativan as much as possible starting now, and was agreeable to go back on standard protocol/higher dose if necessary if he requires it further that way. She understood the possible consequence of tapering Ativan drastically, or the consequences of alcohol withdrawal symptoms. Thus, the following interventions were modified after the discussion: * One to one sitter ordered in view of patient's unsafe ambulation posing risk to his existing fractures, needs reassessment in the morning. * After discussion between me, patient's daughter Pau, and hospitalist/ automotive design drafter attending Dr Ram, the dose of scheduled Ativan has been changed from 2 mg orally every 4 hours to 2 mg orally every 6 hours. Also, Ativan IV per protocol PRN has been changed to a lower scale from standard scale. * Tylenol#3 was changed to regular Acetaminophen 650 mg PO q6PRN, in order to minimize codiene/opiates as much as possible. * The patient's daughter is requesting a family meeting at 4 PM tomorrow on if possible when attending physician as well as psychiatry service is present. She has been notified that we'll try to get this arranged, but in any event, her concerns have been noted and will be passed on and discuss tomorrow, and hopefully we will all have a discussion tomorrow together. Timing has been an issue to have it done so far. * All her concerns regarding the patient's care was noted and will be passed on to the primary team who could be in touch with the psychiatry service at the same time, and update the patient's daughter.
[2017-07-21] VITALS (7 sets, daily range): BP systolic 130–156; BP diastolic 60–84
[2017-07-21 05:00] LABS: ABSOLUTE BASOPHIL COUNT 0 /CUMM (0.0-0.2); ABSOLUTE EOSINOPHIL COUNT 0 /CUMM (0.0-0.7); ABSOLUTE GRANULOCYTE CT 2.5 /CUMM (1.4-6.5); ABSOLUTE LYMPH COUNT 0.7 /CUMM (1.2-3.4); ABSOLUTE MONOCYTE COUNT 0.6 /CUMM (0.10-0.60); BASOPHIL % 0.4 % (0.0-2.0); EOSINOPHIL % 0 % (0-5); GRANULOCYTE % 64.6 % (42.2-75.2); HEMATOCRIT 26.6 % (42-52); MEAN CORPUSCULAR HGB 33.1 PG (27.0-31.0); MEAN CORPUSCULAR HGB CONC 33.2 G/DL (33.0-37.0); MEAN CORPUSCULAR VOLUME 99.6 FL (80.0-94.0); MEAN PLATELET VOLUME 7.7 FL (7.4-10.4); PLATELET COUNT 176 /CUMM (130-400); RBC DISTRIBUTION WIDTH 22.4 % (11.5-14.5); RED BLOOD CELL CT 2.67 /CUMM (4.70-6.10); WHITE BLOOD CELL COUNT 3.9 /CUMM (4.8-10.8)
--- NOTE | 2017-07-21 08:08 | PN- Housestaff ---
Conrado Montalvo 07/21/17 0808: Subjective Follow-up For: -Comminuted fracture the right symphysis pubis see on CT -Acute anemia, unclear etiology, likely multifactorial -EtoH Withdrawal with Delerium -Right acute mildly-displaced greater trochanteric fracture Subjective: He was seen and examin today. He is alert, awake oriented X 1, still confused. he report only back pain. his CIWA scores 2-8 he did not received any PRN Ativan. He deny any Aud or visual hallucination, chest pain, heartracing. He is in + ve fluid balance of 500 mL. His Po ativan was change by the P.M team from Q4hr to Q6hr and they DC Tylenol #3 for his pain pre family request. Review of Systems Constitutional: Denies: chills, fever. Cardiovascular: Denies: chest pain, palpitations. Respiratory: Denies: cough, short of breath. Gastrointestinal: Denies: abdominal pain, diarrhea, nausea, vomiting. Genitourinary: Denies: dysuria, hematuria, pain. Objective Last 24 Hrs of Vital Signs/I&O Vital Signs Date Time Temp Pulse Resp B/P B/P Pulse O2 O2 Flow FiO2 Mean Ox Delivery Rate 07/21 0400 99.1 64 20 154/80 07/21 0400 99.1 64 20 154/80 94 Room Air 07/21 0000 99.3 62 18 150/84 07/21 0000 95 Room Air 07/21 0000 99.3 62 18 150/84 95 Room Air 07/20 1600 97.8 70 20 148/70 07/20 1600 97.8 70 20 148/70 94 07/20 1400 98.8 70 18 151/68 07/20 1200 98.0 70 20 102/67 07/20 0930 98.8 77 18 147/67 Intake & Output 07/21 1600 07/21 0800 07/21 0000 Intake Total 50 740 Output Total Balance 50 740 Intake, IV 500 Intake, Oral 50 240 Number 2 Bowel Movements Physical Exam General Appearance: Alert, Cooperative, confused HEENT: Atraumatic, PERRLA, EOMI Neck: Supple Cardiovascular: Regular Rate, Normal S1, Normal S2 Lungs: Clear to Auscultation, Normal Air Movement Abdomen: Normal Bowel Sounds, Soft, No Tenderness Extremities: No Cyanosis, No Edema, 3rd right toe amputation Current Medications: Current Medications Sig/Kim Start time Last Medication Dose Route Stop Time Status Admin Acetaminophen 650 MG Q6P PRN 07/20 2100 AC 07/21 PO 0134 Acetaminophen/ 1 TAB Q6 07/19 1200 DC 07/20 Codeine Phosphate PO 1801 Atorvastatin Calcium 80 MG DAILY 07/15 1000 AC 07/20 PO 0827 Cyanocobalamin 1,000 MCG DAILY 07/19 1000 AC 07/20 PO 0827 Duloxetine HCl 30 MG DAILY 07/15 1000 AC 07/20 PO 0827 Ferrous Sulfate 325 MG DAILY 07/17 1429 AC 07/20 PO 0826 Folic Acid 1 MG DAILY 07/19 1000 AC 07/20 PO 0827 Gabapentin 600 MG Q6P PRN 07/15 0400 AC 07/19 PO 1716 Hydroxychloroquine 200 MG BID 07/15 1000 AC 07/20 Sulfate PO 2215 Lorazepam 2 MG Q6 07/20 2359 AC 07/21 PO 0640 Lorazepam 2 MG Q4 07/20 1400 DC PO Lorazepam 3 MG Q6 07/20 1200 DC PO Lorazepam 2 MG Q4 07/20 1100 DC 07/20 PO 1802 Lorazepam 0 Q1P PRN 07/16 2345 AC 07/20 IV 0928 Magnesium Oxide 400 MG BID 07/20 1000 AC 07/20 PO 07/21 1001 2215 Metoprolol Tartrate 25 MG BID 07/19 2200 AC 07/20 PO 2215 Morphine Sulfate 2 MG Q6P PRN 07/20 1330 AC IV Morphine Sulfate 2 MG Q6P PRN 07/20 1315 DC 07/20 IV 1315 Multivitamins 1 TAB DAILY 07/20 1100 AC 07/20 PO 1314 Omeprazole 40 MG DAILY AC 07/20 0700 AC 07/21 PO 0657 Prednisone 7.5 MG DAILY 07/18 1000 AC 07/20 PO 0827 Thiamine HCl 500 MG TID 07/19 1000 AC 07/20 Sodium Chloride 250 ML IV 07/21 2301 2215 Tramadol HCl 50 MG Q6P PRN 07/20 0745 AC 07/20 PO 1605 Zolpidem Tartrate 5 MG AT BEDTIME 07/20 0045 AC 07/20 PO 2216 Last 24 Hrs of Lab/Antwan Results Last 24 Hrs of Labs/Mics: Laboratory Tests 07/21/17 0345: Anion Gap 9, Estimated GFR > 60, Glucose 82, Calcium 8.8, Phosphorus 3.6, Magnesium 1.6, Total Bilirubin 1.2, AST 24, ALT 27, Albumin 2.9 L, CBC w Diff NO MAN DIFF REQ, RBC 2.67 L, MCV 99.6 H, MCH 33.1 H, MCHC 33.2, RDW 22.4 H, MPV 7.7, Gran % 64.6, Lymphocytes % 18.9 L, Monocytes % 16.1 H, Eosinophils % 0, Basophils % 0.4, Absolute Granulocytes 2.5, Absolute Lymphocytes 0.7 L, Absolute Monocytes 0.6, Absolute Eosinophils 0, Absolute Basophils 0 Assessment/Plan Assessment: Problem List -Comminuted fracture the right symphysis pubis see on CT -Acute anemia, unclear etiology, likely multifactorial -EtoH Withdrawal -Right acute mildly-displaced greater trochanteric fracture -History of CAD s/p CABG -Hx of HFpEF. -Rheumatoid arthritis on Plaquinel / Prednisone, possible adrenal insufficiency -GERD -Peripheral neuropathy Plan: -Right Hip XRY as recommended by orthopedic for further evaluation. -Continue omeprazole by mouth -continue the patient prednisone home dose -If Patient become hypotensive will restart stress dose of hydrocortisone. -Cont patient Ativan 2 mg every 6 for now. -Continue Ativan IV when necessary per [facility] protocol -High-dose thiamine, by mouth folic acid and vitamin B12 -Continue Tylenol every 6 hr, morphine IV and tramadol every 6 as needed. We' ll discuss with the family regarding changing the pain medication. -Continue iron supplement. -Psychiatric consultation appreciated -Podiatry consultation appreciated -Repeat electrolytes accordingly -We'll continue monitor H&H goal > 8 g/dl. -Patient will need outpatient belt operator evaluation -Encourage oral intake -DVT prophylaxis:Alps -Full code. Problem List: 1. Pubic ramus fracture 2. Pubic bone fracture 3. Alcohol withdrawal delirium Pain Ratin Pain Location: back Pain Goal: Pain 4 or less Pain Plan: see A/P Tomorrow's Labs & Rationales: Acosta Azevedo MD 07/21/17 1205: Attending MD Review Statement Attending Statement Attending MD Statement: examined this patient, discuss w/resident/PA/ANCILLARY SERVICES MANAGER, agreed w/resident/PA/ANCILLARY SERVICES MANAGER, discussed with family, reviewed EMR data (avail), discussed with nursing, discussed with case mgmt, reviewed images, amended to note Attending Assessment/Plan: Acosta White M.D. have examined this patient, reviewed available EMR data, personally reviewed images, discussed with resident/PA/ANCILLARY SERVICES MANAGER, discussed management plan with housestaff and nursing staff, discussed managment plan all of healthcare providers, discussed management plan with patient and/or family, agreed with resident/PA/ANCILLARY SERVICES MANAGER. The past history and parts of the chart have been autopopulated. Impression 72-year-old man with resolved hypotension. Etoh withdrawal. Anemia. Hip fracture and a right symphysis pubis fracture. Plan -mental status improving overall -psychiatry appreciated -taper benzodiazepines -careful administration of pain medications -please discuss with family any changes in medications -Orthopedic follow up rearding pubis fracture appreciated - will f/u imaging -ID appreciated, monitor off antibiotics -CXR likely suggestive of atelectasis -Monitor CBC -cont prednisone dose -pain control DVT prophylaxis at all times - monitor cbc and begin chemical prophylaxis GM hold Will sign out to hospitalist team
--- NOTE | 2017-07-21 12:34 | PN- Podiatry ---
Subjective Subjective: 72 y/o male seen and evaluated in the ICU for follow up on a healing partial thickness wound on the medial aspect of an amputation stump of the right third toe. Pt is in no apparent distress resting comfortably in bed. Objective Vital Signs and I&Os Vital Signs Date Time Temp Pulse Resp B/P B/P Pulse O2 O2 Flow FiO2 Mean Ox Delivery Rate 07/21 1000 98.2 62 18 148/80 07/21 0958 70 130/80 07/21 0800 97.0 66 18 130/80 07/21 0800 98.1 74 16 156/70 98 Room Air 07/21 0400 99.1 64 20 154/80 07/21 0400 99.1 64 20 154/80 94 Room Air 07/21 0000 99.3 62 18 150/84 07/21 0000 95 Room Air 07/21 0000 99.3 62 18 150/84 95 Room Air 07/20 1600 97.8 70 20 148/70 07/20 1600 97.8 70 20 148/70 94 07/20 1400 98.8 70 18 151/68 Intake & Output 07/21 1600 07/21 0800 07/21 0000 07/20 1600 07/20 0800 07/20 0000 Intake Total 50 740 602 510 480 Output Total 150 Balance 50 740 452 510 480 Intake, IV 500 290 270 Intake, Oral 50 240 312 240 480 Number 2 2 Bowel Movements Output, Other Output, Urine 150 Physical Exam: Neurovascular and musculoskeletal exams are unchanged from initial examination two days ago. The ulceration is epithelializing with only a pinpoint area of dermis exposed and some marginal hyperkeratosis. There is no edema, no erythema, no drainage, no malodor, no fluctuance, no crepitus, no purulence. Current Medications: Current Medications Sig/Kim Start time Last Medication Dose Route Stop Time Status Admin Acetaminophen 650 MG .STK-MED ONE 07/21 0134 DC PO 07/21 0135 Acetaminophen 650 MG Q6P PRN 07/20 2100 AC 07/21 PO 0957 Acetaminophen/ 1 TAB Q6 07/19 1200 DC 07/20 Codeine Phosphate PO 1801 Atorvastatin Calcium 80 MG DAILY 07/15 1000 AC 07/21 PO 0958 Cyanocobalamin 1,000 MCG DAILY 07/19 1000 AC 07/21 PO 0957 Duloxetine HCl 30 MG DAILY 07/15 1000 AC 07/21 PO 0958 Ferrous Sulfate 325 MG DAILY 07/17 1429 AC 07/21 PO 0957 Folic Acid 1 MG DAILY 07/19 1000 AC 07/21 PO 0958 Gabapentin 600 MG Q6P PRN 07/15 0400 AC 07/19 PO 1716 Hydroxychloroquine 200 MG BID 07/15 1000 AC 07/21 Sulfate PO 0958 Lorazepam 2 MG Q6 07/20 2359 AC 07/21 PO 1126 Lorazepam 2 MG Q4 07/20 1100 DC 07/20 PO 1802 Lorazepam 0 Q1P PRN 07/16 2345 AC 07/20 IV 0928 Magnesium Oxide 400 MG BID 07/20 1000 DC 07/21 PO 07/21 1001 0958 Metoprolol Tartrate 25 MG BID 07/19 2200 AC 07/21 PO 0958 Morphine Sulfate 2 MG Q6P PRN 07/20 1330 AC 07/21 IV 1125 Morphine Sulfate 2 MG Q6P PRN 07/20 1315 DC 07/20 IV 1315 Multivitamins 1 TAB DAILY 07/20 1100 AC 07/21 PO 0957 Omeprazole 40 MG DAILY AC 07/20 0700 AC 07/21 PO 0657 Oxycodone HCl 5 MG Q6 07/21 1200 AC 07/21 PO 1126 Prednisone 7.5 MG DAILY 07/18 1000 AC 07/21 PO 0957 Thiamine HCl 500 MG TID 07/19 1000 AC 07/21 Sodium Chloride 250 ML IV 07/21 2301 1123 Tramadol HCl 50 MG Q6P PRN 07/20 0745 DC 07/20 PO 1605 Zolpidem Tartrate 5 MG AT BEDTIME 07/20 0045 DC 07/20 PO 2216 Results Last 48 Hours of Labs: Laboratory Tests 07/21 07/20 0345 0400 Chemistry Sodium (137 - 145 mmol/L) 139 141 Potassium (3.5 - 5.1 mmol/L) 4.0 3.2 L Chloride (98 - 107 mmol/L) 105 105 Carbon Dioxide (22 - 30 mmol/L) 24 27 Anion Gap (5 - 16) 9 9 BUN (9 - 20 mg/dL) 15 16 Creatinine (0.7 - 1.2 mg/dL) 0.6 L 0.8 Estimated GFR (>60 ml/min) > 60 > 60 Glucose (65 - 99 mg/dL) 82 82 Calcium (8.4 - 10.2 mg/dL) 8.8 8.5 Phosphorus (2.5 - 4.5 mg/dL) 3.6 3.2 Magnesium (1.6 - 2.3 mg/dL) 1.6 1.5 L Total Bilirubin (0.2 - 1.3 mg/dL) 1.2 0.9 AST (17 - 59 U/L) 24 20 ALT (21 - 72 U/L) 27 26 [id number] Pept (<125 pg/mL) 3970 H Albumin (3.5 - 5.0 g/dL) 2.9 L 2.8 L Hematology CBC w Diff NO MAN DIFF REQ NO MAN DIFF REQ WBC (4.8 - 10.8 /CUMM) 3.9 L 4.6 L RBC (4.70 - 6.10 /CUMM) 2.67 L 2.58 L Hgb (14.0 - 18.0 G/DL) 8.8 L 8.6 L Hct (42 - 52 %) 26.6 L 25.7 L MCV (80.0 - 94.0 FL) 99.6 H 99.6 H MCH (27.0 - 31.0 PG) 33.1 H 33.2 H MCHC (33.0 - 37.0 G/DL) 33.2 33.3 RDW (11.5 - 14.5 %) 22.4 H 22.7 H Plt Count (130 - 400 /CUMM) 176 161 MPV (7.4 - 10.4 FL) 7.7 7.3 L Gran % (42.2 - 75.2 %) 64.6 60.2 Lymphocytes % (20.5 - 51.1 %) 18.9 L 22.6 Monocytes % (1.7 - 9.3 %) 16.1 H 16.3 H Eosinophils % (0 - 5 %) 0 0.5 Basophils % (0.0 - 2.0 %) 0.4 0.4 Absolute Granulocytes (1.4 - 6.5 /CUMM) 2.5 2.8 Absolute Lymphocytes (1.2 - 3.4 /CUMM) 0.7 L 1.0 L Absolute Monocytes (0.10 - 0.60 /CUMM) 0.6 0.8 H Absolute Eosinophils (0.0 - 0.7 /CUMM) 0 0 Absolute Basophils (0.0 - 0.2 /CUMM) 0 0 Assessment/Plan Assessment/Plan 72 y/o male with multiple medical problems with healing partial thickness ulceration of the medial right third toe from abutment with the hallux. Pt seen and evaluated No change in wound care recommendations. ABx ointment and band-aid daily with padding between the toes. Pt will require custom orthoses with filler for his amputations on an outpatient basis Will continue to f/u in house. Core Measures Venous Thromboembolism VTE Risk Factors Age>40 No Mechanical VTE Prophylaxis d/t N/A MechProphylax Ordered No VTE Pharm Prophylaxis d/t NA PharmProphylax ordered
--- NOTE | 2017-07-21 15:26 | RADIOLOGY REPORT ---
EXAMINATION: XR HIP, RIGHT CLINICAL INFORMATION: Mildly displaced fracture of the greater trochanter. Reassessment. COMPARISON: CT scan of the abdomen and pelvis dated 07/17/2017. Right hip films dated 07/15/2017. TECHNIQUE: Single frontal view of the right hip was performed portably. Patient is unable to assume the positioning for a frog-leg lateral view. Shoot through lateral could apparently not be obtained adequately on portable film. FINDINGS: Total right hip arthroplasty is in place and appears intact. As seen previously, there is a fracture of the [place] bone at the greater trochanter with approximately 8 mm distraction of the fracture fragments. There are also nondisplaced fractures of the right superior and inferior pubic rami. Several renny are seen in region of the pubic symphysis. IMPRESSION: Limited assessment on single view. No significant change in fractures of the right greater trochanter and the right superior and inferior pubic rami.
--- NOTE | 2017-07-21 18:32 | Event Note ---
Event Note Event Note: We spoke with the family regarding change the pain medication and the current ativan regimen. we dc the tramadol and start low dose of Oxycoden 5 mg po q6hr and we cont Iv morphin PRN for sever pain. and we will cont the ativan 2 mg PO q 6hr and we will follow Psych recommendations.
--- NOTE | 2017-07-21 18:47 | PN- Psychiatry ---
Assessment/Plan Impression: The patient is experiencing some mild hallucinosis, which he describes as not unpleasant, in the form of "visual distortions." He verbalizes understanding that we he will tell his nurse if they worsen. The patient's alcohol detox is proceeding well. He began lorazepam 2 mg PO every 6 hours on 07/20/2017 at 2357, and should receive 5 doses. Then, he should start lorazepam 1.5 mg PO every 6 hours for 5 doses, then lorazepam 1 mg PO every 6 hours for 5 doses, then lorazepam 0.5 mg PO every 6 hours for 5 doses, and then stop. This taper schedule should precede only if CIWA scores are decreasing, and when necessary lorazepam use has not increased. If either of these 2 conditions occur, hold at the current level for an additional 24 hours. If we taper the medication too quickly, the patient will be insufficiently detoxed, and may be at risk for seizures. The patient's daughter was present at the beginning of my evaluation, and is supportive and involved in his care. She will need further support from nursing and medicine, as she is having some difficulty understanding the course of treatment for alcohol withdrawal. Suggestion: 1. Continue lorazepam 2 mg PO every 6 hours scheduled until 5 doses have been administered. If the CIWA scores continued to decline and the use of as needed lorazepam remains low, the taper can be advanced, per the discussion above, at no more than 20% in a 24-hour period. 2. Lorazepam by mouth per CIWA as needed. 3. Continue daily thiamine, multivitamin and folic acid. 4. Please advise the patient's prescriber of bupropion XL, whom he reports as his pain r d manager in [place], that he should not restart this medication if he continues to drink alcohol. Bupropion will lower the seizure level in the setting of chronic alcohol use. 5. The patient will need an intake appointment at [facility], or other, intensive outpatient program, for aftercare of alcohol use disorder and depression. Medical social work can assist with this process. We will continue to follow along with you. Subjective Subjective: The patient is alert, sitting up in bed, he is calm and cooperative, and not in any restraints. He believes he is in a hotel, correctly identifies the month, is off by one day, and does not know what year it is. He is easily reoriented. He reports mild visual hallucinations in the form of "distortions," and denies auditory or tactile hallucinations. He presents no hanna delusions. The patient denies suicidal or homicidal ideation. Review of Systems Neurological/Psychological: Reports: confusion. Objective Last 24 Hrs of Vital Signs/I&O Vital Signs Date Time Temp Pulse Resp B/P B/P Pulse O2 O2 Flow FiO2 Mean Ox Delivery Rate 07/21 1600 97.9 66 20 130/66 07/21 1600 97.9 66 20 130/66 96 Room Air 07/21 1200 98.2 60 16 130/80 07/21 1000 98.2 62 18 148/80 07/21 0958 70 130/80 07/21 0800 97.0 66 18 130/80 07/21 0800 98.1 74 16 156/70 98 Room Air 07/21 0400 99.1 64 20 154/80 07/21 0400 99.1 64 20 154/80 94 Room Air 07/21 0000 99.3 62 18 150/84 07/21 0000 95 Room Air 07/21 0000 99.3 62 18 150/84 95 Room Air Intake & Output 07/21 1600 07/21 0800 07/21 0000 Intake Total 520 50 740 Output Total Balance 520 50 740 Intake, IV 280 500 Intake, Oral 240 50 240 Number 3 2 Bowel Movements Physical Exam: Not performed Physical Exam General Appearance: no apparent distress, alert, awake, comfortable, lethargic Neurologic/Psychiatric: awake, alert Current Medications: Current Medications Sig/Kim Start time Last Medication Dose Route Stop Time Status Admin Acetaminophen 650 MG .STK-MED ONE 07/21 0953 DC PO 07/21 0954 Acetaminophen 650 MG .STK-MED ONE 07/21 0134 DC PO 07/21 0135 Acetaminophen 650 MG Q6P PRN 07/20 2100 AC 07/21 PO 0957 Acetaminophen/ 1 TAB Q6 07/19 1200 DC 07/20 Codeine Phosphate PO 1801 Atorvastatin Calcium 80 MG DAILY 07/15 1000 AC 07/21 PO 0958 Cyanocobalamin 1,000 MCG DAILY 07/19 1000 AC 07/21 PO 0957 Duloxetine HCl 30 MG DAILY 07/15 1000 AC 07/21 PO 0958 Ferrous Sulfate 325 MG DAILY 07/17 1429 AC 07/21 PO 0957 Folic Acid 1 MG DAILY 07/19 1000 AC 07/21 PO 0958 Gabapentin 600 MG Q6P PRN 07/15 0400 AC 07/19 PO 1716 Heparin Sodium 5,000 UNIT Q8 07/21 1400 AC 07/21 (Porcine) SC 1533 Hydroxychloroquine 200 MG BID 07/15 1000 AC 07/21 Sulfate PO 0958 Lorazepam 2 MG Q6 07/20 2359 AC 07/21 PO 1731 Lorazepam 2 MG Q4 07/20 1100 DC 07/20 PO 1802 Lorazepam 0 Q1P PRN 07/16 2345 AC 07/20 IV 0928 Magnesium Oxide 400 MG BID 07/20 1000 DC 07/21 PO 07/21 1001 0958 Metoprolol Tartrate 25 MG BID 07/19 2200 AC 07/21 PO 0958 Morphine Sulfate 2 MG Q6P PRN 07/20 1330 AC 07/21 IV 1532 Multivitamins 1 TAB DAILY 07/20 1100 AC 07/21 PO 0957 Omeprazole 40 MG DAILY AC 07/20 0700 AC 07/21 PO 0657 Oxycodone HCl 5 MG Q6 07/21 1200 AC 07/21 PO 1732 Prednisone 7.5 MG DAILY 07/18 1000 AC 07/21 PO 0957 Thiamine HCl 500 MG TID 07/19 1000 AC 07/21 Sodium Chloride 250 ML IV 07/21 2301 1533 Tramadol HCl 50 MG Q6P PRN 07/20 0745 DC 07/20 PO 1605 Zolpidem Tartrate 5 MG AT BEDTIME 07/20 0045 DC 07/20 PO 2216 Results Last 24 Hrs of Labs/Mics: Laboratory Tests 07/21 0345 Chemistry Sodium (137 - 145 mmol/L) 139 Potassium (3.5 - 5.1 mmol/L) 4.0 Chloride (98 - 107 mmol/L) 105 Carbon Dioxide (22 - 30 mmol/L) 24 Anion Gap (5 - 16) 9 BUN (9 - 20 mg/dL) 15 Creatinine (0.7 - 1.2 mg/dL) 0.6 L Estimated GFR (>60 ml/min) > 60 Glucose (65 - 99 mg/dL) 82 Calcium (8.4 - 10.2 mg/dL) 8.8 Phosphorus (2.5 - 4.5 mg/dL) 3.6 Magnesium (1.6 - 2.3 mg/dL) 1.6 Total Bilirubin (0.2 - 1.3 mg/dL) 1.2 AST (17 - 59 U/L) 24 ALT (21 - 72 U/L) 27 Albumin (3.5 - 5.0 g/dL) 2.9 L Hematology CBC w Diff NO MAN DIFF REQ WBC (4.8 - 10.8 /CUMM) 3.9 L RBC (4.70 - 6.10 /CUMM) 2.67 L Hgb (14.0 - 18.0 G/DL) 8.8 L Hct (42 - 52 %) 26.6 L MCV (80.0 - 94.0 FL) 99.6 H MCH (27.0 - 31.0 PG) 33.1 H MCHC (33.0 - 37.0 G/DL) 33.2 RDW (11.5 - 14.5 %) 22.4 H Plt Count (130 - 400 /CUMM) 176 MPV (7.4 - 10.4 FL) 7.7 Gran % (42.2 - 75.2 %) 64.6 Lymphocytes % (20.5 - 51.1 %) 18.9 L Monocytes % (1.7 - 9.3 %) 16.1 H Eosinophils % (0 - 5 %) 0 Basophils % (0.0 - 2.0 %) 0.4 Absolute Granulocytes (1.4 - 6.5 /CUMM) 2.5 Absolute Lymphocytes (1.2 - 3.4 /CUMM) 0.7 L Absolute Monocytes (0.10 - 0.60 /CUMM) 0.6 Absolute Eosinophils (0.0 - 0.7 /CUMM) 0 Absolute Basophils (0.0 - 0.2 /CUMM) 0
[2017-07-22 04:40] LABS: ABSOLUTE BASOPHIL COUNT 0 /CUMM (0.0-0.2); ABSOLUTE EOSINOPHIL COUNT 0.1 /CUMM (0.0-0.7); ABSOLUTE GRANULOCYTE CT 2.2 /CUMM (1.4-6.5); ABSOLUTE MONOCYTE COUNT 0.5 /CUMM (0.10-0.60); BASOPHIL % 0.4 % (0.0-2.0); EOSINOPHIL % 2.2 % (0-5); GRANULOCYTE % 57.4 % (42.2-75.2); HEMATOCRIT 27.1 % (42-52); MEAN CORPUSCULAR HGB 32.9 PG (27.0-31.0); MEAN CORPUSCULAR VOLUME 99.6 FL (80.0-94.0); MEAN PLATELET VOLUME 7.1 FL (7.4-10.4); PLATELET COUNT 223 /CUMM (130-400); RBC DISTRIBUTION WIDTH 20.6 % (11.5-14.5); RED BLOOD CELL CT 2.72 /CUMM (4.70-6.10); WHITE BLOOD CELL COUNT 3.9 /CUMM (4.8-10.8)
[2017-07-22 08:00] VITALS: BP 146/70
--- NOTE | 2017-07-22 08:14 | PN- Housestaff ---
See Addendum Subjective Follow-up For: -Comminuted fracture the right symphysis pubis see on CT -Acute anemia, unclear etiology, likely multifactorial -EtoH Withdrawal with Delerium -Right acute mildly-displaced greater trochanteric fracture Subjective: He was seen and examin today. He is alert, awake oriented X 2. His confusion status slightly improve comparing with yesterday. he still report back pain. his CIWA scores 0-5 he did not received any PRN Ativan. He is in + ve fluid balance of 300 mL. Review of Systems Constitutional: Denies: chills, fever, weakness. Cardiovascular: Denies: chest pain, palpitations, peripheral edema. Respiratory: Denies: cough, short of breath, wheezing. Gastrointestinal: Denies: abdominal pain, diarrhea, nausea, vomiting. Genitourinary: Denies: hematuria, pain. Musculoskeletal: Reports: back pain. Objective Last 24 Hrs of Vital Signs/I&O Vital Signs Date Time Temp Pulse Resp B/P B/P Pulse O2 O2 Flow FiO2 Mean Ox Delivery Rate 07/22 0834 60 146/80 07/22 0800 97.3 60 18 146/70 07/22 0800 94 Room Air Room Air 07/22 0800 97.3 60 18 146/70 94 Room Air Room Air 07/22 0000 97 Room Air 07/21 2300 97.7 65 18 130/60 97 Room Air 07/21 2125 64 140/62 07/21 1600 97.9 66 20 130/66 07/21 1600 97.9 66 20 130/66 96 Room Air 07/21 1200 98.2 60 16 130/80 Intake & Output 07/22 1600 07/22 0800 07/22 0000 Intake Total 240 730 Output Total Balance 240 730 Intake, IV 250 Intake, Oral 240 480 Physical Exam General Appearance: Alert, Cooperative, No Acute Distress Skin Temp/Moisture Exam: Warm/Dry HEENT: Atraumatic, PERRLA, EOMI Neck: Supple Cardiovascular: Regular Rate, Normal S1, Normal S2 Lungs: Clear to Auscultation, Normal Air Movement Abdomen: Normal Bowel Sounds, Soft, No Tenderness Neurological: Normal Speech, Sensation Intact Extremities: No Edema, 3rd right toe amputation Current Medications: Current Medications Sig/Kim Start time Last Medication Dose Route Stop Time Status Admin Acetaminophen 650 MG Q6P PRN 07/20 2100 AC 07/22 PO 0420 Atorvastatin Calcium 80 MG DAILY 07/15 1000 AC 07/22 PO 0834 Cyanocobalamin 1,000 MCG DAILY 07/19 1000 AC 07/22 PO 0835 Duloxetine HCl 30 MG DAILY 07/15 1000 AC 07/22 PO 0833 Ferrous Sulfate 325 MG DAILY 07/17 1429 AC 07/22 PO 0833 Folic Acid 1 MG DAILY 07/19 1000 AC 07/22 PO 0834 Gabapentin 600 MG Q6P PRN 07/15 0400 AC 07/22 PO 0832 Heparin Sodium 5,000 UNIT Q8 07/21 1400 AC 07/22 (Porcine) SC 0526 Hydroxychloroquine 200 MG BID 07/15 1000 AC 07/22 Sulfate PO 0834 Lorazepam 1.5 MG Q6 07/22 1200 AC PO 07/23 1201 Lorazepam 2 MG Q6 07/20 2359 DC 07/22 PO 0525 Lorazepam 0 Q1P PRN 07/16 2345 AC 07/20 IV 0928 Magnesium Oxide 400 MG BID 07/22 1000 AC 07/22 PO 07/23 2201 0943 Metoprolol Tartrate 25 MG BID 07/19 2200 AC 07/22 PO 0834 Morphine Sulfate 2 MG Q6P PRN 07/20 1330 DC 07/22 IV 0810 Multivitamins 1 TAB DAILY 07/20 1100 AC 07/22 PO 0835 Non-Formulary 0 SEE ADMIN CRITERIA 07/22 1030 UNVr Medication ANY Omeprazole 40 MG DAILY AC 07/20 0700 AC 07/22 PO 0525 Oxycodone HCl 10 MG Q6 07/22 1200 AC 07/22 PO 1030 Oxycodone HCl 5 MG Q6 07/21 1200 DC 07/22 PO 0526 Phosphate 250 MG ONCE ONE 07/22 0845 DC 07/22 PO 07/22 0846 1046 Potassium Chloride 20 MEQ ONCE ONE 07/22 0845 DC 07/22 PO 07/22 0846 0943 Prednisone 7.5 MG DAILY 07/18 1000 AC 07/22 PO 0834 Thiamine HCl 250 MG DAILY 07/22 1000 AC 07/22 Sodium Chloride 100 ML IV 07/24 1029 0950 Thiamine HCl 500 MG TID 07/19 1000 DC 07/21 Sodium Chloride 250 ML IV 07/21 2301 2125 Tramadol HCl 50 MG Q6P PRN 07/20 0745 DC 07/20 PO 1605 Last 24 Hrs of Lab/Antwan Results Last 24 Hrs of Labs/Mics: Laboratory Tests 07/22/17 0412: Anion Gap 10, Estimated GFR > 60, Glucose 71, Calcium 8.7, Phosphorus 3.8, Magnesium 1.6, Total Bilirubin 1.1, AST 20, ALT 25, Albumin 2.8 L, CBC w Diff NO MAN DIFF REQ, RBC 2.72 L, MCV 99.6 H, MCH 32.9 H, MCHC 33.0, RDW 20.6 H, MPV 7.1 L, Gran % 57.4, Lymphocytes % 26.1, Monocytes % 13.9 H, Eosinophils % 2.2, Basophils % 0.4, Absolute Granulocytes 2.2, Absolute Lymphocytes 1.0 L, Absolute Monocytes 0.5, Absolute Eosinophils 0.1, Absolute Basophils 0 Orders Radiology Findings: EXAM TYPE: RAD - XRY-HIP 2-3 VIEWS, RIGHT EXAMINATION: XR HIP, RIGHT CLINICAL INFORMATION: Mildly displaced fracture of the greater trochanter. Reassessment. COMPARISON: CT scan of the abdomen and pelvis dated 07/17/2017. Right hip films dated 07/15/2017. TECHNIQUE: Single frontal view of the right hip was performed portably. Patient is unable to assume the positioning for a frog-leg lateral view. Shoot through lateral could apparently not be obtained adequately on portable film. FINDINGS: Total right hip arthroplasty is in place and appears intact. As seen previously, there is a fracture of the [place] bone at the greater trochanter with approximately 8 mm distraction of the fracture fragments. There are also nondisplaced fractures of the right superior and inferior pubic rami. Several renny are seen in region of the pubic symphysis. IMPRESSION: Limited assessment on single view. No significant change in fractures of the right greater trochanter and the right superior and inferior pubic rami. Assessment/Plan Assessment: Problem List -Comminuted fracture the right symphysis pubis see on CT -Acute anemia, unclear etiology, likely multifactorial -EtoH Withdrawal -Right acute mildly-displaced greater trochanteric fracture -History of CAD s/p CABG -Hx of HFpEF. -Rheumatoid arthritis on Plaquinel / Prednisone, possible adrenal insufficiency -GERD -Peripheral neuropathy Plan: -Change patient Ativan to 1.5 mg every 6 total of 5 doses -Continue Tylenol every 6 hr, morphine IV and will add his home dose of 15 mg Ms Contin BID we check his CTPMP. We'll discuss with the family regarding changing the pain medication. -Right Hip XRY did not showe any changes. -We will cont repleting his electrolytes. -Continue omeprazole by mouth -continue the patient prednisone home dose -If Patient become hypotensive will restart stress dose of hydrocortisone. -Continue Ativan IV when necessary per [facility] protocol -High-dose thiamine, by mouth folic acid and vitamin B12 -Continue iron supplement. -Psychiatric consultation appreciated -Podiatry consultation appreciated -Repeat electrolytes accordingly -We'll continue monitor H&H goal > 8 g/dl. -Patient will need outpatient stud setter evaluation -Encourage oral intake -DVT prophylaxis: Sc heaprin -Full code. Problem List: 1. Pubic ramus fracture 2. Pubic bone fracture 3. Alcohol withdrawal delirium Pain Ratin Pain Location: back and hip Pain Goal: Pain 4 or less Pain Plan: see A/P Tomorrow's Labs & Rationales: cbc bep
--- NOTE | 2017-07-22 08:33 | PN- Podiatry ---
Subjective Subjective: 72-year-old male seen and evaluated for follow-up on a partial-thickness pressure lesion on the medial aspect of his right third toe's amputation stump. The patient is lying comfortably in bed in no apparent distress. Review of Systems: A 14 point review of systems was performed, and was found to be negative apart from the patient's complaints described above in the history of present illness. Objective Vital Signs and I&Os Vital Signs Date Time Temp Pulse Resp B/P B/P Pulse O2 O2 Flow FiO2 Mean Ox Delivery Rate 07/22 0000 97 Room Air 07/21 2300 97.7 65 18 130/60 97 Room Air 07/21 2125 64 140/62 07/21 1600 97.9 66 20 130/66 07/21 1600 97.9 66 20 130/66 96 Room Air 07/21 1200 98.2 60 16 130/80 07/21 1000 98.2 62 18 148/80 07/21 0958 70 130/80 Intake & Output 07/22 1600 07/22 0800 07/22 0000 07/21 1600 07/21 0800 07/21 0000 Intake Total 240 730 520 50 740 Output Total Balance 240 730 520 50 740 Intake, IV 250 280 500 Intake, Oral 240 480 240 50 240 Number 3 2 Bowel Movements Physical Exam: Neurovascular status is unchanged, musculoskeletal exam is unchanged. The lesion has begun to epithelialize, and while patient is resting in bed the hallux is not abutting the third toe. No edema, no erythema, no maceration, no fluctuance, no necrosis, no crepitus, no drainage. Current Medications: Current Medications Sig/Kim Start time Last Medication Dose Route Stop Time Status Admin Acetaminophen 650 MG .STK-MED ONE 07/21 0953 DC PO 07/21 0954 Acetaminophen 650 MG Q6P PRN 07/20 2100 AC 07/22 PO 0420 Atorvastatin Calcium 80 MG DAILY 07/15 1000 AC 07/21 PO 0958 Cyanocobalamin 1,000 MCG DAILY 07/19 1000 AC 07/21 PO 0957 Duloxetine HCl 30 MG DAILY 07/15 1000 AC 07/21 PO 0958 Ferrous Sulfate 325 MG DAILY 07/17 1429 AC 07/21 PO 0957 Folic Acid 1 MG DAILY 07/19 1000 AC 07/21 PO 0958 Gabapentin 600 MG Q6P PRN 07/15 0400 AC 07/19 PO 1716 Heparin Sodium 5,000 UNIT Q8 07/21 1400 AC 07/22 (Porcine) SC 0526 Hydroxychloroquine 200 MG BID 07/15 1000 AC 07/21 Sulfate PO 2125 Lorazepam 1.5 MG Q6 07/22 1200 AC PO 07/23 1201 Lorazepam 2 MG Q6 07/20 2359 DC 07/22 PO 0525 Lorazepam 0 Q1P PRN 07/16 2345 AC 07/20 IV 0928 Magnesium Oxide 400 MG BID 07/20 1000 DC 07/21 PO 07/21 1001 0958 Metoprolol Tartrate 25 MG BID 07/19 2200 AC 07/21 PO 2125 Morphine Sulfate 2 MG Q6P PRN 07/20 1330 AC 07/21 IV 2256 Multivitamins 1 TAB DAILY 07/20 1100 AC 07/21 PO 0957 Omeprazole 40 MG DAILY AC 07/20 0700 AC 07/22 PO 0525 Oxycodone HCl 5 MG Q6 07/21 1200 AC 07/22 PO 0526 Prednisone 7.5 MG DAILY 07/18 1000 AC 07/21 PO 0957 Thiamine HCl 500 MG TID 07/19 1000 DC 07/21 Sodium Chloride 250 ML IV 07/21 2301 2125 Tramadol HCl 50 MG Q6P PRN 07/20 0745 DC 07/20 PO 1605 Zolpidem Tartrate 5 MG AT BEDTIME 07/20 0045 DC 07/20 PO 2216 Results Last 48 Hours of Labs: Laboratory Tests 07/22 07/21 0412 0345 Chemistry Sodium (137 - 145 mmol/L) 137 139 Potassium (3.5 - 5.1 mmol/L) 3.8 4.0 Chloride (98 - 107 mmol/L) 101 105 Carbon Dioxide (22 - 30 mmol/L) 26 24 Anion Gap (5 - 16) 10 9 BUN (9 - 20 mg/dL) 13 15 Creatinine (0.7 - 1.2 mg/dL) 0.6 L 0.6 L Estimated GFR (>60 ml/min) > 60 > 60 Glucose (65 - 99 mg/dL) 71 82 Calcium (8.4 - 10.2 mg/dL) 8.7 8.8 Phosphorus (2.5 - 4.5 mg/dL) 3.8 3.6 Magnesium (1.6 - 2.3 mg/dL) 1.6 1.6 Total Bilirubin (0.2 - 1.3 mg/dL) 1.1 1.2 AST (17 - 59 U/L) 20 24 ALT (21 - 72 U/L) 25 27 Albumin (3.5 - 5.0 g/dL) 2.8 L 2.9 L Hematology CBC w Diff NO MAN DIFF REQ NO MAN DIFF REQ WBC (4.8 - 10.8 /CUMM) 3.9 L 3.9 L RBC (4.70 - 6.10 /CUMM) 2.72 L 2.67 L Hgb (14.0 - 18.0 G/DL) 8.9 L 8.8 L Hct (42 - 52 %) 27.1 L 26.6 L MCV (80.0 - 94.0 FL) 99.6 H 99.6 H MCH (27.0 - 31.0 PG) 32.9 H 33.1 H MCHC (33.0 - 37.0 G/DL) 33.0 33.2 RDW (11.5 - 14.5 %) 20.6 H 22.4 H Plt Count (130 - 400 /CUMM) 223 176 MPV (7.4 - 10.4 FL) 7.1 L 7.7 Gran % (42.2 - 75.2 %) 57.4 64.6 Lymphocytes % (20.5 - 51.1 %) 26.1 18.9 L Monocytes % (1.7 - 9.3 %) 13.9 H 16.1 H Eosinophils % (0 - 5 %) 2.2 0 Basophils % (0.0 - 2.0 %) 0.4 0.4 Absolute Granulocytes (1.4 - 6.5 /CUMM) 2.2 2.5 Absolute Lymphocytes (1.2 - 3.4 /CUMM) 1.0 L 0.7 L Absolute Monocytes (0.10 - 0.60 /CUMM) 0.5 0.6 Absolute Eosinophils (0.0 - 0.7 /CUMM) 0.1 0 Absolute Basophils (0.0 - 0.2 /CUMM) 0 0 Assessment/Plan Assessment/Plan 72-year-old male with a noninfected partial-thickness pressure lesion on the amputation stump of the right third toe Pt was seen and evaluated at bedside The lesion continues to epithelialize and heal, and decubitus prophylaxis protocol. The patient will need custom molded inserts with a filler on an outpatient basis to prevent re-ulceration Lesion clinically and radiographically exhibits no signs of acute infection We'll follow as needed. Core Measures Venous Thromboembolism VTE Risk Factors Age>40 No Mechanical VTE Prophylaxis d/t N/A MechProphylax Ordered No VTE Pharm Prophylaxis d/t NA PharmProphylax ordered
[2017-07-22 10:00] VITALS: BP 130/70
[2017-07-22 12:00] VITALS: BP 132/78
[2017-07-22 16:00] VITALS: BP 120/70
[2017-07-22 22:29] VITALS: BP 128/76
[2017-07-23 05:54] VITALS: BP 112/70
--- NOTE | 2017-07-23 07:12 | PN- Housestaff ---
Kateryna HANSON,Piper 07/23/17 0712: Subjective Follow-up For: EtOH withdrawal, altered mental status-resolved Right greater trochanter and right superior inferior pubic rami fracture Complaints: pain over the upper abdomen Subjective: Patient seen and examined at bedside. No overnight events. He complains of vague pain in the upper abdomen of fibroid in severity. He denies chest pain, shortness of breath, nausea, vomiting, weakness, numbness. Review of Systems Constitutional: Reports: see HPI. Objective Last 24 Hrs of Vital Signs/I&O Vital Signs Date Time Temp Pulse Resp B/P B/P Pulse O2 O2 Flow FiO2 Mean Ox Delivery Rate 07/23 0925 Room Air 07/23 0855 60 112/70 07/23 0554 98.5 60 20 112 97 Room Air 07/22 2239 74 128/76 07/22 2229 98.4 59 18 128/76 95 Room Air 07/22 1600 98.2 64 20 120/70 07/22 1600 98.2 64 20 120/70 96 Room Air 07/22 1200 97.3 60 18 132/78 Intake & Output 07/23 1600 07/23 0800 07/23 0000 Intake Total Output Total 400 100 Balance -400 -100 Output, Urine 400 100 Physical Exam General Appearance: Alert, Oriented X3, Cooperative Cardiovascular: Regular Rate, Normal S1, Normal S2, No Murmurs Lungs: Clear to Auscultation, Normal Air Movement Abdomen: Soft, No Tenderness, No Hepatospenomegaly Neurological: Normal Speech, Strength at 5/5 X4 Ext, Normal Tone, Sensation Intact Extremities: No Cyanosis, No Edema, Normal Pulses Current Medications: Current Medications Sig/Kim Start time Last Medication Dose Route Stop Time Status Admin Acetaminophen 650 MG Q6P PRN 07/20 2100 AC 07/22 PO 0420 Atorvastatin Calcium 80 MG DAILY 07/15 1000 AC 07/23 PO 0855 Cyanocobalamin 1,000 MCG DAILY 07/19 1000 AC 07/23 PO 0856 Duloxetine HCl 30 MG DAILY 07/15 1000 AC 07/23 PO 0855 Ferrous Sulfate 325 MG DAILY 07/17 1429 AC 07/23 PO 0855 Folic Acid 1 MG DAILY 07/19 1000 AC 07/23 PO 0855 Gabapentin 600 MG Q6P PRN 07/15 0400 AC 07/23 PO 0856 Heparin Sodium 5,000 UNIT Q8 07/21 1400 AC 07/23 (Porcine) SC 0524 Hydromorphone HCl 1 MG ONCE ONE 07/22 1145 DC 07/22 IV 07/22 1146 1100 Hydroxychloroquine 200 MG BID 07/15 1000 AC 07/23 Sulfate PO 0855 Lorazepam 0.5 MG Q6H 07/25 0000 AC PO 07/26 0001 Lorazepam 1 MG Q6 07/23 1800 AC PO 07/24 1801 Lorazepam 1.5 MG Q6 07/22 1200 AC 07/23 PO 07/23 1201 1121 Lorazepam 0 Q1P PRN 07/16 2345 AC 07/23 IV 0231 Magnesium Oxide 400 MG BID 07/22 1000 AC 07/23 PO 07/23 2201 1121 Metoprolol Tartrate 25 MG BID 07/19 2200 AC 07/23 PO 0855 Morphine Sulfate 4 MG Q4P PRN 07/22 1130 AC 07/23 IV 0808 Morphine Sulfate 15 MG BID 07/22 1121 AC 07/23 PO 0855 Multivitamins 1 TAB DAILY 07/20 1100 AC 07/23 PO 0855 Omeprazole 40 MG DAILY AC 07/20 0700 AC 07/23 PO 0524 Oxycodone HCl 10 MG Q6 07/22 1200 AC 07/23 PO 1121 Prednisone 7.5 MG DAILY 07/18 1000 AC 07/23 PO 0855 Thiamine HCl 250 MG DAILY 07/22 1000 AC 07/23 Sodium Chloride 100 ML IV 07/24 1029 1045 Assessment/Plan Assessment: Assessment and plan - Comminuted fracture the right symphysis pubis and right greater trochanter- conservative management -Acute anemia, unclear etiology, likely multifactorial -EtoH Withdrawal-on tapering dose of Ativan -History of CAD s/p CABG -Hx of HFpEF. -Rheumatoid arthritis on Plaquinel / Prednisone, possible adrenal insufficiency -GERD -Peripheral neuropathy * Patient scoring 2 in CIWA in last 24 hours. Patient is on tapering dose of Ativan [Ativan 1 mg every 6 ] Patient denies any suicidal ideation, hallucination, chest pain, palpitation, abdominal pain. Patient is on IV thiamine. * Fracture of the right pubic symphysis and right greater trochanter- conservative management. Patient is seen by physical therapy everyday was suggested short-term rehabilitation. Pain management-on morphine IV 4 mg daily P4, MS Contin 15 mg twice a day, oxycodone 10 mg every 6, Tylenol 650 mg every 6 when necessary. * Coronary artery disease status post CABG-continue metoprolol 25 mg twice a day , atorvastatin 80 mg daily * Rheumatoid arthritis-gabapentin 600 mg every 6, Cymbalta 30 mg daily, hydroxychloroquine 200 mg twice a day * Anemia-continue ferrous sulfate at 325 mg daily * ? Adrenal insufficiency-prednisone 7.5 mg daily. * Code-full code DVT prophylaxis-heparin Problem List: 1. Alcohol withdrawal delirium 2. Pubic bone fracture 3. Pubic ramus fracture Pain Ratin Pain Location: None Pain Goal: Remain pain free Pain Plan: Tylenol Tomorrow's Labs & Rationales: CBC, BEP Hunter Marcano MD 07/23/17 2211: Attending MD Review Statement Attending Statement Attending MD Statement: examined this patient, discuss w/resident/PA/AIR HAMMER STRIPPER, agreed w/resident/PA/A[employer] H[employer]MER STRIPPER, reviewed EMR data (avail), discussed with case mgmt, amended to note Attending Assessment/Plan: The patient was seen and discussed with house staff and case management. Patient is still requiring some of PRN doses of Ativan and some IV narcotic due to multiple fractures. Will wean as able. Will need STR (he is reluctant).
--- NOTE | 2017-07-23 08:53 | PN- Podiatry ---
Subjective Subjective: 72 y/o male seen and evaluated for f/u on partial thickness ulceration on the medial aspect of a stump of a partial right 3rd toe amputation. Pt has been dowgraded to general floor from ICU yesterday and is resting comfortably in bed with no complaints. Review of Systems: 14 point ROS was performed and was negative. Objective Vital Signs and I&Os Vital Signs Date Time Temp Pulse Resp B/P B/P Pulse O2 O2 Flow FiO2 Mean Ox Delivery Rate 07/23 0554 98.5 60 20 112/70 97 Room Air 07/22 2239 74 128/76 07/22 2229 98.4 59 18 128/76 95 Room Air 07/22 1600 98.2 64 20 120/70 07/22 1600 98.2 64 20 120/70 96 Room Air 07/22 1200 97.3 60 18 132/78 07/22 1000 97.6 62 18 130/70 Intake & Output 07/23 1600 07/23 0800 07/23 0000 07/22 1600 07/22 0800 07/22 0000 Intake Total 650 240 730 Output Total 400 100 Balance -400 -100 650 240 730 Intake, IV 150 250 Intake, Oral 500 240 480 Number 1 Bowel Movements Output, Urine 400 100 Physical Exam: Neurovascular status is unchanged, musculoskeletal exam is unchanged. The lesion has begun to epithelialize, and while patient is resting in bed the hallux is not abutting the third toe. No edema, no erythema, no maceration, no fluctuance, no necrosis, no crepitus, no drainage. Current Medications: Current Medications Sig/Kim Start time Last Medication Dose Route Stop Time Status Admin Acetaminophen 650 MG Q6P PRN 07/20 2100 AC 07/22 PO 0420 Atorvastatin Calcium 80 MG DAILY 07/15 1000 AC 07/22 PO 0834 Cyanocobalamin 1,000 MCG DAILY 07/19 1000 AC 07/22 PO 0835 Duloxetine HCl 30 MG DAILY 07/15 1000 AC 07/22 PO 0833 Ferrous Sulfate 325 MG DAILY 07/17 1429 AC 07/22 PO 0833 Folic Acid 1 MG DAILY 07/19 1000 AC 07/22 PO 0834 Gabapentin 600 MG Q6P PRN 07/15 0400 AC 07/22 PO 0832 Heparin Sodium 5,000 UNIT Q8 07/21 1400 AC 07/23 (Porcine) SC 0524 Hydromorphone HCl 1 MG ONCE ONE 07/22 1145 DC 07/22 IV 07/22 1146 1100 Hydroxychloroquine 200 MG BID 07/15 1000 AC 07/22 Sulfate PO 2240 Lorazepam 0.5 MG Q6H 07/25 0000 AC PO 07/26 0001 Lorazepam 1 MG Q6 07/23 1800 AC PO 07/24 1801 Lorazepam 1.5 MG Q6 07/22 1200 AC 07/23 PO 07/23 1201 0524 Lorazepam 0 Q1P PRN 07/16 2345 AC 07/23 IV 0231 Magnesium Oxide 400 MG BID 07/22 1000 AC 07/22 PO 07/23 2201 2240 Metoprolol Tartrate 25 MG BID 07/19 2200 AC 07/22 PO 2239 Morphine Sulfate 4 MG Q4P PRN 07/22 1130 AC 07/23 IV 0808 Morphine Sulfate 15 MG BID 07/22 1121 AC 07/22 PO 2240 Morphine Sulfate 2 MG Q6P PRN 07/20 1330 DC 07/22 IV 0810 Multivitamins 1 TAB DAILY 07/20 1100 AC 07/22 PO 0835 Non-Formulary 0 SEE ADMIN CRITERIA 07/22 1030 DC Medication ANY Omeprazole 40 MG DAILY AC 07/20 0700 AC 07/23 PO 0524 Oxycodone HCl 10 MG Q6 07/22 1200 AC 07/23 PO 0524 Oxycodone HCl 5 MG Q6 07/21 1200 DC 07/22 PO 0526 Prednisone 7.5 MG DAILY 07/18 1000 AC 07/22 PO 0834 Thiamine HCl 250 MG DAILY 07/22 1000 AC 07/22 Sodium Chloride 100 ML IV 07/24 1029 0950 Results Last 48 Hours of Labs: Laboratory Tests 07/22 0412 Chemistry Sodium (137 - 145 mmol/L) 137 Potassium (3.5 - 5.1 mmol/L) 3.8 Chloride (98 - 107 mmol/L) 101 Carbon Dioxide (22 - 30 mmol/L) 26 Anion Gap (5 - 16) 10 BUN (9 - 20 mg/dL) 13 Creatinine (0.7 - 1.2 mg/dL) 0.6 L Estimated GFR (>60 ml/min) > 60 Glucose (65 - 99 mg/dL) 71 Calcium (8.4 - 10.2 mg/dL) 8.7 Phosphorus (2.5 - 4.5 mg/dL) 3.8 Magnesium (1.6 - 2.3 mg/dL) 1.6 Total Bilirubin (0.2 - 1.3 mg/dL) 1.1 AST (17 - 59 U/L) 20 ALT (21 - 72 U/L) 25 Albumin (3.5 - 5.0 g/dL) 2.8 L Hematology CBC w Diff NO MAN DIFF REQ WBC (4.8 - 10.8 /CUMM) 3.9 L RBC (4.70 - 6.10 /CUMM) 2.72 L Hgb (14.0 - 18.0 G/DL) 8.9 L Hct (42 - 52 %) 27.1 L MCV (80.0 - 94.0 FL) 99.6 H MCH (27.0 - 31.0 PG) 32.9 H MCHC (33.0 - 37.0 G/DL) 33.0 RDW (11.5 - 14.5 %) 20.6 H Plt Count (130 - 400 /CUMM) 223 MPV (7.4 - 10.4 FL) 7.1 L Gran % (42.2 - 75.2 %) 57.4 Lymphocytes % (20.5 - 51.1 %) 26.1 Monocytes % (1.7 - 9.3 %) 13.9 H Eosinophils % (0 - 5 %) 2.2 Basophils % (0.0 - 2.0 %) 0.4 Absolute Granulocytes (1.4 - 6.5 /CUMM) 2.2 Absolute Lymphocytes (1.2 - 3.4 /CUMM) 1.0 L Absolute Monocytes (0.10 - 0.60 /CUMM) 0.5 Absolute Eosinophils (0.0 - 0.7 /CUMM) 0.1 Absolute Basophils (0.0 - 0.2 /CUMM) 0 Assessment/Plan Assessment/Plan 72 y/o male with peripheral neuropathy 2'/2 chronic alcoholism with s/p right 2nd toe amputation and partial right 3rd toe amputation with healing pressure lesion on the 3rd toe stump. Pt seen and evaluated Maintain band-aid over lesion. Otherwise it is healing and only requires offloading Will f/u on Wednesday Core Measures Venous Thromboembolism VTE Risk Factors Age>40 No Mechanical VTE Prophylaxis d/t N/A MechProphylax Ordered No VTE Pharm Prophylaxis d/t NA PharmProphylax ordered
[2017-07-23 13:50] VITALS: BP 100/40
--- NOTE | 2017-07-23 15:22 | Incdntl Nt Psy ---
See Addendum Incidental Note Notation: Stopped to see pt who was examined bedside. He is evolving well in terms of his detoxification from alcohol. He reports no anxiety, is not tremulous, denies hallucinations and is alert and oriented to person, time and place. In terms of attention he recited the months backwards until he got to June and was unable to spell world backwards. He had somewhat tangential answers at times and may be mildly confused. He endorses some mild mood changes he has not previously coped with. He denies SI or HI. A/ 72 y/o M with etoh use d/o who is currently detoxifying from alcohol. He is evolving well. P/ Continue following recommendations from Marbin Sarkar's previous notes. Pt can follow up with outpatient psychiatry [phone].
[2017-07-23 22:05] VITALS: BP 114/60
[2017-07-24 06:45] VITALS: BP 118/62
[2017-07-24 08:36] LABS: ABSOLUTE BASOPHIL COUNT 0 /CUMM (0.0-0.2); ABSOLUTE EOSINOPHIL COUNT 0.1 /CUMM (0.0-0.7); ABSOLUTE GRANULOCYTE CT 2.5 /CUMM (1.4-6.5); ABSOLUTE LYMPH COUNT 1.3 /CUMM (1.2-3.4); ABSOLUTE MONOCYTE COUNT 0.6 /CUMM (0.10-0.60); BASOPHIL % 0.3 % (0.0-2.0); EOSINOPHIL % 2.7 % (0-5); GRANULOCYTE % 55.7 % (42.2-75.2); MEAN CORPUSCULAR HGB 32.5 PG (27.0-31.0); MEAN CORPUSCULAR VOLUME 98.6 FL (80.0-94.0); MEAN PLATELET VOLUME 7.8 FL (7.4-10.4); PLATELET COUNT 282 /CUMM (130-400); RBC DISTRIBUTION WIDTH 20.8 % (11.5-14.5); RED BLOOD CELL CT 2.84 /CUMM (4.70-6.10); WHITE BLOOD CELL COUNT 4.4 /CUMM (4.8-10.8)
--- NOTE | 2017-07-24 10:11 | PN- Housestaff ---
See Addendum Subjective Follow-up For: Pubic ramus fracture, EtOH Subjective: No overnight events. HE complains of mild chest pain, SOB, abd pain, hip pain. Sitting comfortably in bed though. Review of Systems Constitutional: Reports: no symptoms. EENTM: Reports: no symptoms. Cardiovascular: Reports: see HPI. Respiratory: Reports: see HPI. Gastrointestinal: Reports: see HPI. Genitourinary: Reports: no symptoms. Musculoskeletal: Reports: see HPI. Skin: Reports: no symptoms. Neurological/Psychological: Reports: no symptoms. Hematologic/Endocrine: Reports: no symptoms. Immunologic/Allergic: Reports: no symptoms. Objective Last 24 Hrs of Vital Signs/I&O Vital Signs Date Time Temp Pulse Resp B/P B/P Pulse O2 O2 Flow FiO2 Mean Ox Delivery Rate 07/24 0935 63 20 118/62 07/24 0645 98.2 63 20 118/62 96 Nasal Cannula 07/23 2205 98.1 61 20 114/60 98 Room Air 07/23 2124 61 114/62 07/23 1350 98.8 55 20 100/40 93 Room Air Intake & Output 07/24 1600 07/24 0800 07/24 0000 Intake Total 240 Output Total 275 600 Balance -275 -360 Intake, Oral 240 Output, Urine 275 600 Physical Exam General Appearance: Alert, Oriented X3, Cooperative, No Acute Distress Cardiovascular: Regular Rate, Normal S1, Normal S2, chest wall tenderness Lungs: Clear to Auscultation Abdomen: Normal Bowel Sounds, Soft, mild tenderness Extremities: No Edema, Normal Pulses, No Tenderness/Swelling Current Medications: Current Medications Sig/Kim Start time Last Medication Dose Route Stop Time Status Admin Acetaminophen 650 MG Q6P PRN 07/20 2100 AC 07/24 PO 1002 Atorvastatin Calcium 80 MG DAILY 07/15 1000 AC 07/24 PO 0935 Bupropion HCl 300 MG DAILY 07/23 1545 AC 07/24 PO 0934 Cyanocobalamin 1,000 MCG DAILY 07/19 1000 AC 07/24 PO 0934 Duloxetine HCl 30 MG DAILY 07/15 1000 AC 07/24 PO 0935 Ferrous Sulfate 325 MG DAILY 07/17 1429 AC 07/24 PO 0935 Folic Acid 1 MG DAILY 07/19 1000 AC 07/24 PO 0935 Gabapentin 600 MG Q6P PRN 07/15 0400 AC 07/23 PO 0856 Heparin Sodium 5,000 UNIT Q8 07/21 1400 AC 07/24 (Porcine) SC 0601 Hydroxychloroquine 200 MG BID 07/15 1000 AC 07/24 Sulfate PO 0935 Lorazepam 0.5 MG Q6H 07/25 0000 AC PO 07/26 0001 Lorazepam 1 MG Q6 07/23 1800 AC 07/24 PO 07/24 1801 0601 Lorazepam 1.5 MG Q6 07/22 1200 DC 07/23 PO 07/23 1201 1121 Lorazepam 0 Q1P PRN 07/16 2345 AC 07/23 IV 0231 Magnesium Oxide 400 MG BID 07/22 1000 DC 07/23 PO 07/23 2201 2124 Metoprolol Tartrate 25 MG BID 07/19 2200 AC 07/24 PO 0935 Morphine Sulfate 4 MG Q4P PRN 07/22 1130 AC 07/24 IV 0439 Morphine Sulfate 15 MG BID 07/22 1121 AC 07/24 PO 0936 Multivitamins 1 TAB DAILY 07/20 1100 AC 07/24 PO 0934 Omeprazole 40 MG DAILY AC 07/20 0700 AC 07/24 PO 0602 Oxycodone HCl 10 MG Q6 07/22 1200 AC 07/24 PO 0602 Prednisone 7.5 MG DAILY 07/18 1000 AC 07/24 PO 0934 Sertraline HCl 100 MG DAILY 07/23 1545 AC 07/24 PO 0934 Thiamine HCl 250 MG DAILY 07/22 1000 AC 07/24 Sodium Chloride 100 ML IV 07/24 1029 0935 Last 24 Hrs of Lab/Antwan Results Last 24 Hrs of Labs/Mics: Laboratory Tests 07/24/17 0657: Anion Gap 9, Estimated GFR > 60, BUN/Creatinine Ratio 25.7 H, CBC w Diff NO MAN DIFF REQ, RBC 2.84 L, MCV 98.6 H, MCH 32.5 H, MCHC 33.0, RDW 20.8 H, MPV 7.8 , Gran % 55.7, Lymphocytes % 28.5, Monocytes % 12.8 H, Eosinophils % 2.7, Basophils % 0.3, Absolute Granulocytes 2.5, Absolute Lymphocytes 1.3, Absolute Monocytes 0.6, Absolute Eosinophils 0.1, Absolute Basophils 0 Assessment/Plan Assessment: 72 yo M with h/o CAD s/p CABG, HTN, RA on prednisone and plaquenil, prostate and thyroid cancer, diastolic heart failure with pulmonary hypertension, s/p second toe and partial third toe amputation of right foot for osteomyelitis, chronic pain on opiates (follows with pain management), previous alcohol dependence with B12 deficiency and neuropathy, is here for hip fracture. - Comminuted fracture the right symphysis pubis and right greater trochanter- conservative management -Acute anemia, unclear etiology, likely multifactorial -EtoH Withdrawal-on tapering dose of Ativan -History of CAD s/p CABG -Hx of HFpEF. -Rheumatoid arthritis on Plaquinel / Prednisone, possible adrenal insufficiency -GERD -Peripheral neuropathy * Patient scoring 2 in CIWA in last 24 hours. Patient is on tapering dose of Ativan [Ativan 1 mg every 6 ] Patient denies any suicidal ideation, hallucination, chest pain, palpitation, abdominal pain. Patient is on IV thiamine. * Fracture of the right pubic symphysis and right greater trochanter- conservative management. Patient is seen by physical therapy everyday was suggested short-term rehabilitation. Pain management-on morphine IV 4 mg daily P4, MS Contin 15 mg twice a day, oxycodone 10 mg every 6, Tylenol 650 mg every 6 when necessary. * Coronary artery disease status post CABG-continue metoprolol 25 mg twice a day , atorvastatin 80 mg daily * Rheumatoid arthritis-gabapentin 600 mg every 6, Cymbalta 30 mg daily, hydroxychloroquine 200 mg twice a day * Anemia-continue ferrous sulfate at 325 mg daily * ? Adrenal insufficiency-prednisone 7.5 mg daily. Patient not scoring high on CIWA and we are tapering the lorazepam. Review of systems armando positive but no focal issues on exam. continue current management, plan for short-term rehabilitation next week. * Code-full code DVT prophylaxis-heparin Problem List: 1. Pubic ramus fracture Pain Ratin Pain Location: armando positive Pain Goal: Remain pain free Pain Plan: see a/p Tomorrow's Labs & Rationales: cbc, bep
[2017-07-24 15:26] VITALS: BP 80/62
[2017-07-24 20:00] VITALS: BP 122/60
[2017-07-24 20:02] VITALS: BP 122/60
[2017-07-24 22:54] VITALS: BP 121/67
[2017-07-25 07:06] VITALS: BP 145/76
[2017-07-25 08:15] LABS: ABSOLUTE BASOPHIL COUNT 0 /CUMM (0.0-0.2); ABSOLUTE EOSINOPHIL COUNT 0.1 /CUMM (0.0-0.7); ABSOLUTE GRANULOCYTE CT 2.8 /CUMM (1.4-6.5); ABSOLUTE LYMPH COUNT 1.2 /CUMM (1.2-3.4); ABSOLUTE MONOCYTE COUNT 0.7 /CUMM (0.10-0.60); BASOPHIL % 0.4 % (0.0-2.0); EOSINOPHIL % 2.1 % (0-5); GRANULOCYTE % 58.3 % (42.2-75.2); HEMATOCRIT 29.1 % (42-52); MEAN CORPUSCULAR HGB 32.7 PG (27.0-31.0); MEAN CORPUSCULAR VOLUME 99.3 FL (80.0-94.0); MEAN PLATELET VOLUME 7.8 FL (7.4-10.4); PLATELET COUNT 327 /CUMM (130-400); RED BLOOD CELL CT 2.93 /CUMM (4.70-6.10); WHITE BLOOD CELL COUNT 4.7 /CUMM (4.8-10.8)
--- NOTE | 2017-07-25 08:29 | PN- Housestaff ---
See Addendum Subjective Follow-up For: Right hip fracture, EtOH Subjective: Overnight events. The patient's complaining of some pain in his hip this morning. He is also worried about starting rehabilitation and being able to walk. Otherwise, no other complaints. Review of Systems Constitutional: Reports: no symptoms. EENTM: Reports: no symptoms. Cardiovascular: Reports: no symptoms. Respiratory: Reports: no symptoms. Gastrointestinal: Reports: no symptoms. Genitourinary: Reports: no symptoms. Musculoskeletal: Reports: see HPI. Skin: Reports: no symptoms. Neurological/Psychological: Reports: no symptoms. Hematologic/Endocrine: Reports: no symptoms. Immunologic/Allergic: Reports: no symptoms. Objective Last 24 Hrs of Vital Signs/I&O Vital Signs Date Time Temp Pulse Resp B/P B/P Pulse O2 O2 Flow FiO2 Mean Ox Delivery Rate 07/25 0706 98.0 59 20 145/76 99 Room Air 07/24 2254 98.0 64 20 121/67 97 Room Air 07/24 2141 56 122/60 07/24 2001 56 122/60 07/25 1999 56 122/60 07/24 1526 97.7 56 20 80/62 95 Room Air 07/24 0935 63 20 118/62 Intake & Output 07/25 1600 07/25 0800 07/25 0000 Intake Total 480 850 Output Total 350 350 Balance 130 500 Intake, IV 0 10 Intake, Oral 480 840 Number 0 0 Bowel Movements Output, Urine 350 350 Physical Exam General Appearance: Alert, Oriented X3, Cooperative, No Acute Distress Cardiovascular: Regular Rate, Normal S1, Normal S2 Lungs: Clear to Auscultation Extremities: No Edema Current Medications: Current Medications Sig/Kim Start time Last Medication Dose Route Stop Time Status Admin Acetaminophen 650 MG .STK-MED ONE 07/24 0952 DC PO 07/24 0953 Acetaminophen 650 MG Q6P PRN 07/20 2100 AC 07/24 PO 1002 Atorvastatin Calcium 80 MG DAILY 07/15 1000 AC 07/24 PO 0935 Bupropion HCl 300 MG DAILY 07/23 1545 AC 07/24 PO 0934 Cyanocobalamin 1,000 MCG DAILY 07/19 1000 AC 07/24 PO 0934 Duloxetine HCl 30 MG DAILY 07/15 1000 AC 07/24 PO 0935 Ferrous Sulfate 325 MG DAILY 07/17 1429 AC 07/24 PO 0935 Folic Acid 1 MG DAILY 07/19 1000 AC 07/24 PO 0935 Gabapentin 600 MG Q6P PRN 07/15 0400 AC 07/23 PO 0856 Heparin Sodium 5,000 UNIT Q8 07/21 1400 AC 07/25 (Porcine) SC 0603 Hydroxychloroquine 200 MG BID 07/15 1000 AC 07/24 Sulfate PO 2141 Lorazepam 0.5 MG Q6H 07/25 0000 AC 07/25 PO 07/26 0001 0603 Lorazepam 1 MG Q6 07/23 1800 DC 07/24 PO 07/24 1801 1752 Lorazepam 0 Q1P PRN 07/16 2345 AC 07/23 IV 0231 Metoprolol Tartrate 25 MG BID 07/19 2200 AC 07/24 PO 2141 Morphine Sulfate 4 MG Q4P PRN 07/22 1130 AC 07/24 IV 1647 Morphine Sulfate 15 MG BID 07/22 1121 AC 07/24 PO 2141 Multivitamins 1 TAB DAILY 07/20 1100 AC 07/24 PO 0934 Omeprazole 40 MG DAILY AC 07/20 0700 AC 07/25 PO 0603 Oxycodone HCl 10 MG Q6 07/22 1200 AC 07/25 PO 0603 Prednisone 7.5 MG DAILY 07/18 1000 AC 07/24 PO 0934 Sertraline HCl 100 MG DAILY 07/23 1545 AC 07/24 PO 0934 Thiamine HCl 250 MG DAILY 07/22 1000 DC 07/24 Sodium Chloride 100 ML IV 07/24 1029 0935 Last 24 Hrs of Lab/Antwan Results Last 24 Hrs of Labs/Mics: Laboratory Tests 07/25/17 0700: Sodium Pending, Potassium Pending, Chloride Pending, Carbon Dioxide Pending, Anion Gap Pending, BUN Pending, Creatinine Pending, BUN/Creatinine Ratio Pending , CBC w Diff Pending, WBC Pending, RBC Pending, Hgb Pending, Hct Pending, MCV Pending, MCH Pending, MCHC Pending, RDW Pending, Plt Count Pending, MPV Pending Assessment/Plan Assessment: 72 yo M with h/o CAD s/p CABG, HTN, RA on prednisone and plaquenil, prostate and thyroid cancer, diastolic heart failure with pulmonary hypertension, s/p second toe and partial third toe amputation of right foot for osteomyelitis, chronic pain on opiates (follows with pain management), previous alcohol dependence with B12 deficiency and neuropathy, is here for hip fracture. - Comminuted fracture the right symphysis pubis and right greater trochanter- conservative management -Acute anemia, unclear etiology, likely multifactorial -EtoH Withdrawal-on tapering dose of Ativan -History of CAD s/p CABG -Hx of HFpEF. -Rheumatoid arthritis on Plaquinel / Prednisone, possible adrenal insufficiency -GERD -Peripheral neuropathy * Patient scoring 2 in CIWA in last 24 hours. Patient is on tapering dose of Ativan [Ativan 1 mg every 6 ] Patient denies any suicidal ideation, hallucination, chest pain, palpitation, abdominal pain. Patient is on IV thiamine. * Fracture of the right pubic symphysis and right greater trochanter- conservative management. Patient is seen by physical therapy everyday was suggested short-term rehabilitation. Pain management-on morphine IV 4 mg daily P4, MS Contin 15 mg twice a day, oxycodone 10 mg every 6, Tylenol 650 mg every 6 when necessary. * Coronary artery disease status post CABG-continue metoprolol 25 mg twice a day , atorvastatin 80 mg daily * Rheumatoid arthritis-gabapentin 600 mg every 6, Cymbalta 30 mg daily, hydroxychloroquine 200 mg twice a day * Anemia-continue ferrous sulfate at 325 mg daily * ? Adrenal insufficiency-prednisone 7.5 mg daily. Patient not scoring high on CIWA and we are tapering the lorazepam. continue current management, plan for short-term rehabilitation next week. He is touch toe weightbearing per orthopedics. * Code-full code DVT prophylaxis-heparin Problem List: 1. Pubic ramus fracture Pain Ratin Pain Location: hip Pain Goal: Remain pain free (see a/p) Pain Plan: see a/p Tomorrow's Labs & Rationales: no
[2017-07-25 14:37] VITALS: BP 111/58
[2017-07-25 21:27] VITALS: BP 110/64
[2017-07-26 06:15] VITALS: BP 130/68
--- NOTE | 2017-07-26 06:24 | PN- Housestaff ---
Kateryna HANSON,Piper 07/26/17 0624: Subjective Follow-up For: Stroke Elevated troponin-resolved Stage IV colon cancer with liver metastasis History of Bilateral DVT and PE Complaints: bilateral hip, knee pain Subjective: Patient seen and examined at bedside. He complains of bilateral hip, knee, foot pain. He said he is having personal problems [his sister recently ] and that this pain he is upset. He denies suicidal ideation, weakness, numbness , tingling sensation. Review of Systems Constitutional: Reports: see HPI. Objective Last 24 Hrs of Vital Signs/I&O Vital Signs Date Time Temp Pulse Resp B/P B/P Pulse O2 O2 Flow FiO2 Mean Ox Delivery Rate 07/26 1121 97.7 64 20 130/68 07/26 0845 64 130/68 07/26 0615 97.7 58 20 130/68 96 07/25 2136 57 110/64 07/25 2127 97.9 57 19 110/64 96 Room Air 07/25 1437 98.2 61 20 111/58 96 Room Air Intake & Output 07/26 1600 07/26 0800 07/26 0000 Intake Total 240 800 Output Total 500 100 Balance -260 700 Intake, Oral 240 800 Output, Urine 500 100 Physical Exam General Appearance: Alert, Oriented X3, Cooperative, No Acute Distress Cardiovascular: Regular Rate, Normal S1, Normal S2, No Murmurs Lungs: Normal Air Movement Abdomen: Soft, No Tenderness, No Hepatospenomegaly Neurological: both upper limb strength 4 x 5.right lower limb 2 x 5, left lower limb 5 x 5. Sensation intact. Current Medications: Current Medications Sig/Kim Start time Last Medication Dose Route Stop Time Status Admin Acetaminophen 650 MG Q6P PRN 07/20 2100 AC 07/24 PO 1002 Atorvastatin Calcium 80 MG DAILY 07/15 1000 AC 07/26 PO 0845 Bupropion HCl 300 MG DAILY 07/23 1545 AC 07/26 PO 0845 Cyanocobalamin 1,000 MCG DAILY 07/19 1000 AC 07/26 PO 0845 Duloxetine HCl 30 MG DAILY 07/15 1000 AC 07/26 PO 0844 Ferrous Sulfate 325 MG DAILY 07/17 1429 AC 07/26 PO 0844 Folic Acid 1 MG DAILY 07/19 1000 AC 07/26 PO 0844 Gabapentin 600 MG Q6P PRN 07/15 0400 AC 07/26 PO 0845 Heparin Sodium 5,000 UNIT Q8 07/21 1400 AC 07/26 (Porcine) SC 0618 Hydroxychloroquine 200 MG BID 07/15 1000 AC 07/26 Sulfate PO 0845 Lorazepam 0.5 MG ONCE ONE 07/26 1015 DC 07/26 PO 07/26 1016 1014 Lorazepam 0.5 MG .STK-MED ONE 07/26 0022 DC PO 07/26 0023 Lorazepam 0.5 MG Q6H 07/25 0000 DC 07/26 PO 07/26 0001 0022 Lorazepam 0 Q1P PRN 07/16 2345 DC 07/25 IV 1945 Metoprolol Tartrate 25 MG BID 07/19 2200 AC 07/26 PO 0845 Morphine Sulfate 15 MG Q8H 07/26 0830 AC 07/26 PO 0846 Morphine Sulfate 2 MG Q4P PRN 07/26 0800 DC 07/26 IV 0805 Morphine Sulfate 4 MG Q4P PRN 07/22 1130 DC 07/26 IV 0355 Morphine Sulfate 15 MG BID 07/22 1121 DC 07/25 PO 2135 Multivitamins 1 TAB DAILY 07/20 1100 AC 07/26 PO 0845 Omeprazole 40 MG DAILY AC 07/20 0700 AC 07/26 PO 0618 Oxycodone HCl 10 MG Q6P PRN 07/26 0827 AC PO Oxycodone HCl 10 MG Q6 07/22 1200 DC 07/26 PO 0618 Prednisone 7.5 MG DAILY 07/18 1000 AC 07/26 PO 0845 Sertraline HCl 100 MG DAILY 07/23 1545 AC 07/26 PO 0845 Thiamine HCl 100 MG DAILY 07/27 1000 AC PO Assessment/Plan Assessment: 72 yo M with h/o CAD s/p CABG, HTN, RA on prednisone and plaquenil, prostate and thyroid cancer, diastolic heart failure with pulmonary hypertension, s/p second toe and partial third toe amputation of right foot for osteomyelitis, chronic pain on opiates (follows with pain management), previous alcohol dependence with B12 deficiency and neuropathy, is here for hip fracture. Assessment and plan: - Comminuted fracture - right symphysis pubis and right greater trochanter- conservative management -Acute anemia, unclear etiology, likely multifactorial -EtoH Withdrawal-on tapering dose of Ativan -History of CAD s/p CABG -Hx of HFpEF. -Rheumatoid arthritis on Plaquinel / Prednisone, possible adrenal insufficiency -GERD -Peripheral neuropathy * Patient scoring 0 in CIWA in last 24 hours. Patient's tapering dose of Ativan course completed. Patient is on when necessary Ativan. Patient denies any suicidal ideation, hallucination, chest pain, palpitation, abdominal pain. Patient is on thiamine. Patient seen by psychiatry who suggested to continue the current management and follow up outpatient IOP. * Fracture of the right pubic symphysis and right greater trochanter- conservative management. Patient is seen by physical therapy everyday was suggested short-term rehabilitation. Pain management-, MS Contin 15 mg 3 times a day, oxycodone 10 mg every 6, Tylenol 650 mg every 6 when necessary. * Coronary artery disease status post CABG-continue metoprolol 25 mg twice a day , atorvastatin 80 mg daily * Rheumatoid arthritis-gabapentin 600 mg every 6, Cymbalta 30 mg daily, hydroxychloroquine 200 mg twice a day * Anemia-continue ferrous sulfate at 325 mg daily * ? Adrenal insufficiency-prednisone 7.5 mg daily. Patient scoring 0 in CIWA. Ativan taper completed. Patient is possible discharge to short-term rehabilitation today. He is touch toe weightbearing per orthopedics. * Code-full code DVT prophylaxis-heparin Problem List: 1. Pubic ramus fracture 2. Alcohol withdrawal Pain Ratin Pain Location: none Pain Goal: Remain pain free Pain Plan: Morphine Tomorrow's Labs & Rationales: None Huma Gardiner MD 07/26/17 1404: Attending Review Statement Attending Statement Attending MD Statement: examined this patient, discuss w/resident/PA/[employer] INST[employer]ER, agreed w/resident/PA/[employer] INST[employer]ER, reviewed EMR data (avail), discussed with nursing, discussed with case mgmt, reviewed images, amended to note Attending Assessment/Plan: Patient seen and examined, doing okay. Pain is controlled with the current regimen. Patient was feeling slightly anxious and requested an extra dose of Ativan. He has completed the Ativan taper otherwise. His pain medications have been switched to oral. Patient otherwise is medically stable for discharge and has a bed available at rehabilitation today. Will be discharged to rehab.
[2017-07-26] MEDS ORDERED: ONE DAILY MULT1 EAC2 PO (10:35)
[2017-07-26] MEDS ORDERED: MS CONTIN15 M3 PO (10:35)
[2017-07-26] MEDS ORDERED: METOPROLOL TART25 M1 PO (10:35)
[2017-07-26 11:21] VITALS: BP 130/68
[2017-07-26] MEDS ORDERED: THIAMINE HCL100 M1 PO (11:25)
[2017-07-26] MEDS ORDERED: ASPIRIN EC81 M1 PO (12:18)
--- NOTE | 2017-07-26 15:37 | PN- Podiatry ---
Subjective Subjective: 72 y/o male seen and evaluated at bedside for healing partial thickness lesion on the medial stump of a right 3rd toe amputation. Pt is significantly more articulate, alert, and oriented vs. his time in the ICU and appears in better spirits. Review of Systems: 14 point ROS was performed and found to be negative apart from his complaints on the primary team's HPI. Objective Vital Signs and I&Os Vital Signs Date Time Temp Pulse Resp B/P B/P Pulse O2 O2 Flow FiO2 Mean Ox Delivery Rate 07/26 1121 97.7 64 20 130/68 / 0845 64 130/68 07/26 0615 97.7 58 20 130/68 96 07/25 2136 57 110/64 07/25 2127 97.9 57 19 110/64 96 Room Air Intake & Output 07/26 1600 07/26 0800 07/26 0000 07/25 1600 07/25 0800 07/25 0000 Intake Total 240 800 600 480 850 Output Total 500 100 375 350 350 Balance -260 700 225 130 500 Intake, IV 0 10 Intake, Oral 240 800 600 480 840 Number 1 0 0 Bowel Movements Output, Urine 500 100 375 350 350 Physical Exam: Neurovascular and musculoskeletal examinations are unchanged. The lesion is epithelializing and only has a pinpoint area of exposed dermis. 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 Current Medications: Current Medications Sig/Kim Start time Last Medication Dose Route Stop Time Status Admin Acetaminophen 650 MG Q6P PRN 07/20 2100 DCD 07/24 PO 1002 Aspirin Buffered 81 MG DAILY 07/26 1218 DCD PO Atorvastatin Calcium 80 MG DAILY 07/15 1000 DCD 07/26 PO 0845 Bupropion HCl 300 MG DAILY 07/23 1545 DCD 07/26 PO 0845 Cyanocobalamin 1,000 MCG DAILY 07/19 1000 DCD 07/26 PO 0845 Duloxetine HCl 30 MG DAILY 07/15 1000 DCD 07/26 PO 0844 Ferrous Sulfate 325 MG DAILY 07/17 1429 DCD 07/26 PO 0844 Folic Acid 1 MG DAILY 07/19 1000 DCD 07/26 PO 0844 Gabapentin 600 MG Q6P PRN 07/15 0400 DCD 07/26 PO 0845 Heparin Sodium 5,000 UNIT Q8 07/21 1400 DCD 07/26 (Porcine) SC 0618 Hydroxychloroquine 200 MG BID 03/22 1000 DCD 07/26 Sulfate PO 0845 Lorazepam 0.5 MG ONCE ONE 07/26 1015 DC 07/26 PO 07/26 1016 1014 Lorazepam 0.5 MG .STK-MED ONE 07/26 0022 DC PO 07/26 0023 Lorazepam 0.5 MG Q6H 07/25 0000 DC 07/26 PO 07/26 0001 0022 Lorazepam 0 Q1P PRN 07/16 2345 DC 07/25 IV 1945 Metoprolol Tartrate 25 MG BID 07/19 2200 DCD 07/26 PO 0845 Morphine Sulfate 15 MG Q8H 07/26 0830 DCD 07/26 PO 0846 Morphine Sulfate 2 MG Q4P PRN 07/26 0800 DC 07/26 IV 0805 Morphine Sulfate 4 MG Q4P PRN 07/22 1130 DC 07/26 IV 0355 Morphine Sulfate 15 MG BID 07/22 1121 DC 07/25 PO 2135 Multivitamins 1 TAB DAILY 07/20 1100 DCD 07/26 PO 0845 Omeprazole 40 MG DAILY AC 07/20 0700 DCD 07/26 PO 0618 Oxycodone HCl 10 MG Q6P PRN 07/26 0827 DCD 07/26 PO 1146 Oxycodone HCl 10 MG Q6 07/22 1200 DC 07/26 PO 0618 Prednisone 7.5 MG DAILY 07/18 1000 DCD 07/26 PO 0845 Sertraline HCl 100 MG DAILY 07/23 1545 DCD 07/26 PO 0845 Thiamine HCl 100 MG DAILY 07/27 1000 DCD PO Results Last 48 Hours of Labs: Laboratory Tests 07/25 0700 Chemistry Sodium (137 - 145 mmol/L) 139 Potassium (3.5 - 5.1 mmol/L) 4.3 Chloride (98 - 107 mmol/L) 100 Carbon Dioxide (22 - 30 mmol/L) 28 Anion Gap (5 - 16) 10 BUN (9 - 20 mg/dL) 18 Creatinine (0.7 - 1.2 mg/dL) 0.7 Estimated GFR (>60 ml/min) > 60 BUN/Creatinine Ratio (7 - 25 %) 25.7 H Hematology CBC w Diff NO MAN DIFF REQ WBC (4.8 - 10.8 /CUMM) 4.7 L RBC (4.70 - 6.10 /CUMM) 2.93 L Hgb (14.0 - 18.0 G/DL) 9.6 L Hct (42 - 52 %) 29.1 L MCV (80.0 - 94.0 FL) 99.3 H MCH (27.0 - 31.0 PG) 32.7 H MCHC (33.0 - 37.0 G/DL) 33.0 RDW (11.5 - 14.5 %) 21.0 H Plt Count (130 - 400 /CUMM) 327 MPV (7.4 - 10.4 FL) 7.8 Gran % (42.2 - 75.2 %) 58.3 Lymphocytes % (20.5 - 51.1 %) 25.3 Monocytes % (1.7 - 9.3 %) 13.9 H Eosinophils % (0 - 5 %) 2.1 Basophils % (0.0 - 2.0 %) 0.4 Absolute Granulocytes (1.4 - 6.5 /CUMM) 2.8 Absolute Lymphocytes (1.2 - 3.4 /CUMM) 1.2 Absolute Monocytes (0.10 - 0.60 /CUMM) 0.7 H Absolute Eosinophils (0.0 - 0.7 /CUMM) 0.1 Absolute Basophils (0.0 - 0.2 /CUMM) 0 Assessment/Plan Assessment/Plan 72 y/o male with healing partial thickness ulceration on the medial aspect of a partial right 3rd toe amputation stump Pt seen and evaluated Dry band-aid placed on the lesion Instructed patient to get toe spacers as an outpatient to pad the area between the bunion deformity and the stump. He may also use cotton swabs. I demonstrated this with some nonadherent gauze in the area. He will likely need special inserts with fillers on an outpatient basis. He may follow up either with myself or Dr. Navarrete in the [facility] wound care center no later than 08/03, and he was instructed to f/u this way at the time of my visit. Reconsult prn. Core Measures Venous Thromboembolism VTE Risk Factors Age>40 No Mechanical VTE Prophylaxis d/t N/A MechProphylax Ordered No VTE Pharm Prophylaxis d/t NA PharmProphylax ordered
== END 2017-07-26 13:40 | DRG 964 ==
LOC: ERH 23:46 → 2NB 07-15 01:14 → ERHI 07-15 01:14 → CRI 07-15 01:14 → ENRESERV 07-15 02:53 → 2NB 07-15 04:24 → CRI 07-16 21:29 → ENTRNSPT 07-22 20:54 → EDTRNSPT 07-22 20:56 → EDTRNSPTSTS 07-22 20:56 → 2NB 07-22 21:38 → CMPTRNSPT 07-22 21:44 → 2NB 07-23 08:10 → ENPENDDIS 07-26 12:25 → 2NB 07-26 13:40
PROVIDERS: Emergency Medicine; Internal Medicine; Internal Medicine Hematology & Oncology; Internal Medicine Interventional Cardiology; Student in an Organized Health Care Education/Training Program
PROC: 02HV33Z Insertion of Infusion Device into Superior Vena Cava, Percutaneous Approach (ICD-10-PCS; 2017-07-16)
PROC: 30233N1 Transfusion of Nonautologous Red Blood Cells into Peripheral Vein, Percutaneous Approach (ICD-10-PCS; principal; 2017-07-17)
DX: S72.141A Displaced intertrochanteric fracture of right femur, initial encounter for closed fracture (principal); S32.501A Unspecified fracture of right pubis, initial encounter for closed fracture; D62 Acute posthemorrhagic anemia; F10.231 Alcohol dependence with withdrawal delirium; E27.49 Other adrenocortical insufficiency; E87.2 Acidosis; I95.9 Hypotension, unspecified; E83.42 Hypomagnesemia; G62.9 Polyneuropathy, unspecified; M86.671 Other chronic osteomyelitis, right ankle and foot; I50.32 Chronic diastolic (congestive) heart failure; M87.9 Osteonecrosis, unspecified; I27.20 Pulmonary hypertension, unspecified; L97.511 Non-pressure chronic ulcer of other part of right foot limited to breakdown of skin; E53.8 Deficiency of other specified B group vitamins; F10.20 Alcohol dependence, uncomplicated; L03.031 Cellulitis of right toe; Z87.891 Personal history of nicotine dependence; F32.9 Major depressive disorder, single episode, unspecified; I25.10 Atherosclerotic heart disease of native coronary artery without angina pectoris; Z95.1 Presence of aortocoronary bypass graft; K21.9 Gastro-esophageal reflux disease without esophagitis; Z87.442 Personal history of urinary calculi; M06.9 Rheumatoid arthritis, unspecified; Z96.643 Presence of artificial hip joint, bilateral; Z85.46 Personal history of malignant neoplasm of prostate; Z85.850 Personal history of malignant neoplasm of thyroid; W18.30XA Fall on same level, unspecified, initial encounter; Z91.81 History of falling; Y92.000 Kitchen of unspecified non-institutional (private) residence as the place of occurrence of the external cause; Z89.421 Acquired absence of other right toe(s); B95.61 Methicillin susceptible Staphylococcus aureus infection as the cause of diseases classified elsewhere; Z79.52 Long term (current) use of systemic steroids; M19.90 Unspecified osteoarthritis, unspecified site; K42.9 Umbilical hernia without obstruction or gangrene; K44.9 Diaphragmatic hernia without obstruction or gangrene; K57.90 Diverticulosis of intestine, part unspecified, without perforation or abscess without bleeding; Z90.79 Acquired absence of other genital organ(s); F41.9 Anxiety disorder, unspecified; I11.0 Hypertensive heart disease with heart failure; E87.6 Hypokalemia
CPT/HCPCS: 2NBSP; CCU; 36415; 36592; 71045; 73502-RT; 73620-RT; 74176; 80307; 81001; 82436; 82652; 83010; 86376; 86800; 86920; 87040; 87086; 93005; 93010; 96374; 97110-GO; 97112-GO; 97116-GO; 97161-GP; 97164-GP; 97530-GO; 99232; 99233; G0480; J0131; J1170; J1644; J1650; J1720; J1815; J1940; J2060; J3490; J7040; J7042; J7060; P9016

== ENCOUNTER 2017-12-18 13:34 | Inpatient (IN) | payer OTHER, MEDICARE ==
[~2017-12-18] VITALS: Ht 172.7 cm; Wt 74.8 kg
[~2017-12-18 13:34] MED LIST changes: +MS CONTIN15 M3 PO; +THIAMINE HCL100 M1 PO
[2017-12-18 14:56] LABS: ABSOLUTE BASOPHIL COUNT 0 /CUMM (0.0-0.2); ABSOLUTE EOSINOPHIL COUNT 0.1 /CUMM (0.0-0.7); ABSOLUTE GRANULOCYTE CT 2.5 /CUMM (1.4-6.5); ABSOLUTE LYMPH COUNT 1.1 /CUMM (1.2-3.4); ABSOLUTE MONOCYTE COUNT 0.5 /CUMM (0.10-0.60); BASOPHIL % 0.2 % (0.0-2.0); EOSINOPHIL % 1.8 % (0-5); GRANULOCYTE % 60.1 % (42.2-75.2); HEMATOCRIT 28.9 % (42-52); MEAN CORPUSCULAR HGB 36.2 PG (27.0-31.0); MEAN CORPUSCULAR HGB CONC 33.5 G/DL (33.0-37.0); MEAN CORPUSCULAR VOLUME 107.9 FL (80.0-94.0); MEAN PLATELET VOLUME 7.2 FL (7.4-10.4); PLATELET COUNT 192 /CUMM (130-400); RBC DISTRIBUTION WIDTH 18.5 % (11.5-14.5); RED BLOOD CELL CT 2.68 /CUMM (4.70-6.10); WHITE BLOOD CELL COUNT 4.2 /CUMM (4.8-10.8)
--- NOTE | 2017-12-18 14:57 | ED GENERAL ADULT ---
History of Present Illness General Chief Complaint: Lower Extremity Problems Stated Complaint: INFECTION IN RT LEG/TOE, ?CELLULITIS Source: patient Exam Limitations: no limitations Vital Signs & Intake/Output Vital Signs & Intake/Output Vital Signs Date Time Temp Pulse Resp B/P B/P Pulse O2 O2 Flow FiO2 Mean Ox Delivery Rate 12/18 2054 97.9 71 22 118/60 94 Room Air 12/18 2040 84 18 110/70 97 Room Air 12/18 1917 98.1 64 18 103/64 98 Room Air 12/18 1617 97.8 52 18 109/58 99 Room Air 12/18 1452 Room Air 12/18 1356 98.4 54 18 97/60 93 Room Air Allergies Coded Allergies: No Known Allergies (03/05/17) Triage Note: RECEIVED 72 YO MALE WITH HX OF RECENT R TOE AMPUTATION AND PVD, C/O RIGHT LOWER EXTREMITY REDNESS, WARMTH AND PAIN AND OPEN WOUND TO AMPUTATED SITE OF RIGHT MIDDLE TOE PARTIAL AMPUTATION. PT ALSO REPORTS REDNESS TO RIGHT EAR Triage Nurses Notes Reviewed? yes Onset: Abrupt Duration: week(s): (1), constant, continues in ED, getting worse Timing: single episode today Injury Environment: home Severity: mild, moderate Severity Numbers: 7 No Modifying Factors: none HPI: 72-year-old male past medical history of coronary artery disease, hypertension, hyperlipidemia chronic back pain, and right toe osteomyelitis process evaluation of pain and redness in his right lower extremity and right second toe. Patient reports this started about one week ago with pain and an ulceration to the distal rt 2nd toe. He also reports he now notices pain swelling and redness in the right anterior lower leg that has been spreading over the past week. He's had no fever no trauma. No chest pain. Does notice some shortness of breath but reports that this is not significant change from his baseline. No cough no hemoptysis. (Shreyas MARIN,Bennett) Reconcile Medications Aspirin (Ecotrin*) 81 MG TABLET.DR 1 TAB PO DAILY Heart health (Reported) Atorvastatin Calcium (Lipitor) 80 MG TABLET 1 TAB PO DAILY hld (Reported) Bupropion HCl (Wellbutrin XL) 300 MG TAB.ER.24H 1 TAB PO DAILY MENTAL HEALTH (Reported) Duloxetine Hydrochloride (Cymbalta) 30 MG CAPSULE.DR 1 CAP PO DAILY nerve pain (Reported) Ferrous Sulfate 325 MG (65 MG IRON) TABLET 1 TAB PO BID SUPPLEMENT (Reported) Folic Acid 1 MG TABLET 1 MG PO DAILY Vitamin Gabapentin 600 MG TABLET 1 TAB PO Q6H PRN NERVE PAIN (Reported) Hydroxychloroquine Sulfate 200 MG TABLET 1 TAB PO BID Rheumatoid Arthritis ( Reported) Metoprolol Tartrate 25 MG TABLET 1 TAB PO BID blood pressure/CAD Morphine Sulfate (Morphine Sulfate ER) 15 MG TABLET.ER 1 TAB PO BID PAIN ( Reported) Oxycodone HCl 10 MG TABLET 1 TAB PO 4XDAILY PRN PAIN (Reported) Pantoprazole Sodium (Unknown Strength) TABLET.DR (Unknown Dose) PO DAILY GI ( Reported) Prednisone 5 MG TABLET 2 TAB PO DAILY RA (Reported) Sertraline HCl (Zoloft) 100 MG TABLET 2 TAB PO DAILY MENTAL HEALTH (Reported) Sulfasalazine 500 MG TABLET 1 TAB PO DAILY RA (Reported) Zolpidem Tartrate (Ambien) 5 MG TABLET 1 TAB PO QPMP PRN INSOMNIA (Reported) (Aiden Carpenter DO) Past History Travel History Traveled to [place] past 21 day No Medical History Any Pertinent Medical History? see below for history Neurological: NONE EENT: NONE Cardiovascular: CAD, hypertension, hyperlipidemia, mitral regurgitation Respiratory: NONE Gastrointestinal: GERD, hiatal hernia, umbilical hernia, diverticulosis coli hx colon TA/TVA Hepatic: NONE Renal: nephrolithiasis Musculoskeletal: chronic back pain, degen joint disease, falls, osteoarthritis, rheumatoid arthritis, hx osteo R foot Psychiatric: alcohol dependence (prev EtOH abuse), depression Endocrine: thyroid Ca Blood Disorders: anemia, B12 deficiency hx Fe def Cancer(s): prostate cancer, thyroid cancer CRUISE DIRECTOR/Reproductive: NONE History of MRSA: No History of VRE: No History of CDIFF: No Influenza Vaccine: 03/26/17 Surgical History Surgical History: appendectomy, CABG (x3), cataract removal, hip replacement ( bilateral), prostatectomy, status post partial thyroidectomy s/p amputation of right 2nd and partial 3rd toes for osteomyelitis. Psychosocial History Who do you live with Spouse Services at Home None What is your primary language Kinyarwanda Tobacco Use: Quit >30 days ago Family History Family History, If Any: FATHER, , Age 81. FH: prostate cancer MOTHER (smoker). , Age 77; Cause: COPD (chronic obstructive pulmonary disease). Hx Contributory? No (Bennett Centeno) Review of Systems Review of Systems Constitutional: Reports: no symptoms. EENTM: Reports: no symptoms. Respiratory: Reports: short of breath. Cardiovascular: Reports: peripheral edema. GI: Reports: no symptoms. Genitourinary: Reports: no symptoms. Musculoskeletal: Reports: no symptoms. Skin: Reports: see HPI, erythema. Neurological/Psychological: Reports: no symptoms. Hematologic/Endocrine: Reports: no symptoms. Immunologic/Allergic: Reports: no symptoms. All Other Systems: Reviewed and Negative (Bennett Centeno) Physical Exam Physical Exam General Appearance: well developed/nourished, no apparent distress, alert, awake Head: atraumatic, normal appearance Eyes: Bilateral: normal appearance, PERRL, EOMI. Ears, Nose, Throat: hearing grossly normal Neck: normal inspection, supple, full range of motion Respiratory: chest non-tender, no respiratory distress, decreased breath sounds Cardiovascular: regular rate/rhythm, normal peripheral pulses Peripheral Pulses: 2+ radial (R), 2+ radial (L) Gastrointestinal: normal bowel sounds, soft, non-tender, no organomegaly Back: normal inspection, normal range of motion, no vertebral tenderness Extremities: there is tenderness to palpation multiple ulcerated lesions and erythema to the right anterior lower leg. The erythema does not extend to the foot. There is a previous partial amputation of the right toe second digit. There is a small ulceration of distal aspect of this with some very minimal erythema. No purulent discharge no lymphatic streaking full range of motion intact no tenderness to palpation no necrotic tissue noted. Good capillary refill. Patient is able to walk and bear weight Neurologic/Psych: no motor/sensory deficits, awake, alert, oriented x 3, normal gait Skin: intact, normal color, warm/dry Core Measures ACS in differential dx? No CVA/TIA Diagnosis: No Sepsis Present: No Sepsis Focused Exam Completed? No (Bennett Cenetno) Progress Differential Diagnoses I considered the following diagnoses in my evaluation of the patient: [ Cellulitis, abscess, osteomyelitis, DVT] Plan of Care: Orders Procedure Date/time Status Heart Healthy Diet 12/19 B Active CBC WITHOUT DIFFERENTIAL 12/19 599 Active BASIC ELECTROLYTES PLUS BUN&CR 12/19 599 Active Regular Diet 12/18 D Complete Weight 12/19 2055 Active Vital Signs 12/19 2055 Active Teach/Educate 12/19 2055 Active Pain Treatment and Response 12/19 2055 Active Nutritional Intake, Monitor 12/19 2055 Active Isolation 12/19 2055 Active Intake & Output 12/19 2055 Active Patient Care Conference 12/19 2055 Active Activity/Ambulation 12/19 2055 Active Intake & Output 12/18 2034 Active Admit to inpatient 12/18 1910 Active Code Status 12/18 191 Active Pathway - chart 12/18 184 Active Patient Data 12/18 1843 Active Code Status 12/18 184 Complete Patient Data 12/18 1822 Active Add-on Test (ER Only) 12/18 1743 Active WESTERGREN SED RATE 12/18 1743 Complete LACTIC ACID 12/18 1732 Complete BLOOD CULTURE 12/18 1640 Active C-REACTIVE PROTEIN 12/18 1440 Complete TROPONIN LEVEL 12/18 1432 Complete LACTIC ACID 12/18 1432 Complete D-DIMER 12/18 1432 Complete COMPREHENSIVE METABOLIC PANEL 12/18 1432 Complete CBC WITHOUT DIFFERENTIAL 12/18 1432 Complete EKG 12/18 1432 Active House Staff 12/18 UNK Active VTE Mechanical Prophylaxis 12/18 UNK Active Vital Signs 12/18 UNK Active Elevate 12/18 UNK Active Current Medications Sig/Kim Start time Last Medication Dose Stop Time Status Admin Aspirin Buffered 81 MG DAILY 12/19 899 AC (Ecotrin) Atorvastatin Calcium 80 MG DAILY 12/19 899 AC (Lipitor) Bupropion HCl 300 MG DAILY 12/19 899 AC (Wellbutrin XL) Duloxetine HCl 30 MG DAILY 12/19 899 AC (Cymbalta) Enoxaparin Sodium 40 MG DAILY 12/19 899 AC (Lovenox) Folic Acid 1 MG DAILY 12/19 899 AC (Folic Acid) Prednisone 10 MG DAILY 12/19 899 AC Sertraline HCl 200 MG DAILY 12/19 899 AC (Zoloft) Sulfasalazine 500 MG DAILY 12/19 899 AC (Azulfidine 500 MG Tablet) Omeprazole 40 MG DAILY AC 12/19 699 AC (Prilosec) Ampicillin Sodium/ 3,000 MG Q6 12/18 2359 AC Sulbactam Sodium (Unasyn) Sodium Chloride 100 ML (Normal Saline 0.9%) Gabapentin 600 MG Q8 12/180 AC (Neurontin) Ferrous Sulfate 325 MG BID 12/18 2100 AC (Feosol) Hydroxychloroquine 200 MG BID 12/18 2100 AC Sulfate (Plaquenil 200MG Tab) Metoprolol Tartrate 25 MG BID 12/18 2099 AC (Lopressor) Morphine Sulfate 15 MG BID 12/18 2099 AC (Ms Contin) Zolpidem Tartrate 5 MG AT BEDTIME PRN 12/18 2099 AC (Ambien) Lorazepam 1 MG SEE ADMIN CRITERIA.. 12/18 1944 AC (Ativan) Oxycodone HCl 10 MG Q6 PRN 12/18 190 AC 12/18 (Roxicodone) 2025 Acetaminophen 650 MG Q6P PRN 12/18 184 AC (Tylenol) Laboratory Tests 12/18/17 1725: Lactic Acid 1.9, ESR Westergren 29 H 12/18/17 1440: Anion Gap 12, Estimated GFR > 60, BUN/Creatinine Ratio 17.8, Glucose 54 L, Lactic Acid 2.7 H, Calcium 8.7, Total Bilirubin 0.4, AST 24, ALT 28, Alkaline Phosphatase 103, Troponin I 0.03, C-Reactive Prot, Quant 2.4 H, Total Protein 6.1 L, Albumin 3.6, Globulin 2.5, Albumin/Globulin Ratio 1.4, D-Dimer High Sensitivty < 200, CBC w Diff NO MAN DIFF REQ, RBC 2.68 L, MCV 107.9 H, MCH 36.2 H, MCHC 33.5, RDW 18.5 H, MPV 7.2 L, Gran % 60.1, Lymphocytes % 25.1, Monocytes % 12.8 H, Eosinophils % 1.8, Basophils % 0.2, Absolute Granulocytes 2.5, Absolute Lymphocytes 1.1 L, Absolute Monocytes 0.5, Absolute Eosinophils 0.1, Absolute Basophils 0 Microbiology 12/18 173 BLOOD: Blood Culture - RECD 12/19 1715 BLOOD: Blood Culture - RECD Patient here for evaluation pain swelling and redness to the right lower cavity. On exam he appears to have cellulitis. Patient does have a history of osteomyelitis in the toes and has had amputations. X-rays sedimentation rate CRP ordered labs ordered ultrasound ordered. Patient has a lactic acid of 2.7. Negative white count he is afebrile. Patient was started on Unasyn. Low suspicion for osteomyelitis clinically as a cellulitis seems to be separate from the toe. There is no evidence of cellulitis to the toes. However with the patient's history he will require podiatry consult, serial labs, MRI, case discussed with Dr. Carpenter he agrees. Diagnostic Imaging: Viewed by Me: Radiology Read, Ultrasound. Discussed w/RAD: Radiology Read, Ultrasound. Radiology Impression: PATIENT: LENNOX MCINTOSH PRESENT AGE: 72 PATIENT ACCOUNT NO: [id number] : 46 LOCATION: [facility] ORDERING PHYSICIAN: Bennett MARIN SERVICE DATE: 12/18/17 EXAM TYPE: US - US-DUPLEX VENOUS EXTREM UNI EXAMINATION: US TRIPLEX LOWER EXTREMITY, RIGHT CLINICAL INFORMATION: Right lower leg pain and swelling COMPARISON: None available. TECHNIQUE: Color-flow triplex imaging with spectral analysis and compression Doppler were performed on the right lower extremity. FINDINGS: Respiratory variation, normal compression and augmented flow are noted throughout the right lower extremity. The visualized common femoral vein, superficial femoral vein, profunda femoral vein, popliteal vein and midcalf peroneal and posterior tibial venous segments show no evidence of deep venous thrombosis. There is no Wilson's cyst. IMPRESSION: No evidence of deep venous thrombosis involving the right lower extremity. DICTATED BY: Aiden Aguilera MD DATE/TIME DICTATED:12/18/171600 PHARMACOGNOSIST:MILENA DATE/TIME TRANSCRIBED:12/18/171600 CONFIDENTIAL, DO NOT COPY WITHOUT APPROPRIATE AUTHORIZATION. <Electronically signed in Other Vendor System> SIGNED BY: Aiden Aguilera MD 12/18/171605 Initial ED EKG: SINUS ARMINDA RATE 52, IVCD, BORDERLINE ST DEPRESSION ANT LEADS (Bennett Centeno) Departure Departure Disposition: STILL A PATIENT Condition: Stable Clinical Impression Primary Impression: Cellulitis Qualifiers: Site of cellulitis: face Qualified Code: L03.211 - Cellulitis of face Referrals: Shania HANSON,Yasmin Benítez (PCP/Family) Departure Forms: Customer Survey General Discharge Information Admission Note Spoke With: Mando Curry MD Documentation of Exam: Documentation of any treatments & extenuating circumstances including Concerns Regarding Discharge (functional status, medication knowledge or non-compliance, living conditions, etc.) that warrant an admission rather than observation: [ serial labs, podiatry, IV antibiotics, IV fluids, MRI of the foot] (Bennett Centeno) PA/FLUID DYNAMICIST Co-Sign Statement Statement: ED Attending supervision documentation- [x] I saw and evaluated the patient. I have also reviewed all the pertinent lab results and diagnostic results. I agree with the findings and the plan of care as documented in the PA's/FLUID DYNAMICIST's documentation. [] I have reviewed the ED Record and agree with the PA's/FLUID DYNAMICIST's documentation. [] Additions or exceptions (if any) to the PAs/FLUID DYNAMICIST's note and plan are summarized below: [] I saw and personally evaluated the patient and I agree with the PAs evaluation. He had streaking erythema up the right leg. He has an ulceration on his toe that is oozing serosanguineous fluid (Aiden Carpenter DO) Critical Care Note Critical Care Note Critical Care Time: non-applicable (Bennett Centeno)
--- NOTE | 2017-12-18 16:06 | ULTRASOUND REPORT ---
EXAMINATION: US TRIPLEX LOWER EXTREMITY, RIGHT CLINICAL INFORMATION: Right lower leg pain and swelling COMPARISON: None available. TECHNIQUE: Color-flow triplex imaging with spectral analysis and compression Doppler were performed on the right lower extremity. FINDINGS: Respiratory variation, normal compression and augmented flow are noted throughout the right lower extremity. The visualized common femoral vein, superficial femoral vein, profunda femoral vein, popliteal vein and midcalf peroneal and posterior tibial venous segments show no evidence of deep venous thrombosis. There is no Wilson's cyst. IMPRESSION: No evidence of deep venous thrombosis involving the right lower extremity.
--- NOTE | 2017-12-18 18:16 | History & Physical ---
Bennett Steen MD 12/18/17 5439: General Information and HPI History of Present Illness: Mr. Vyas is 72-year-old male with past medical history of coronary artery disease, hypertension, lipidemia, GERD, alcohol abuse, prostate cancer, thyroid cancer, and rheumatoid arthritis who presents with concerns of a right toe infection. Patient says that has been painful for a while but does not know exactly how long has been going on. He said he does not monitor very well. He denies any pus, fever, chills, chest pain, abdominal pain, nausea or vomiting. He has some mild chronic shortness of breath. Patient currently drinks 2 beers a day and is a former smoker. He refuses questions regarding recreational drug use. Allergies/Medications Allergies: Coded Allergies: No Known Allergies (03/05/17) Past History Travel History Traveled to [place] past 21 day No Medical History Neurological: NONE EENT: NONE Cardiovascular: CAD, hypertension, hyperlipidemia, mitral regurgitation Respiratory: NONE Gastrointestinal: GERD, hiatal hernia, umbilical hernia, diverticulosis coli hx colon TA/TVA Hepatic: NONE Renal: nephrolithiasis Musculoskeletal: chronic back pain, degen joint disease, falls, osteoarthritis, rheumatoid arthritis, hx osteo R foot Psychiatric: alcohol dependence (prev EtOH abuse), depression Endocrine: thyroid Ca Blood Disorders: anemia, B12 deficiency hx Fe def Cancer(s): prostate cancer, thyroid cancer CLEANER OPERATOR/Reproductive: NONE History of MRSA: No History of VRE: No History of CDIFF: No Influenza Vaccine: 03/26/17 Surgical History Surgical History: appendectomy, CABG (x3), cataract removal, hip replacement ( bilateral), prostatectomy, status post partial thyroidectomy s/p amputation of right 2nd and partial 3rd toes for osteomyelitis. Past Family/Social History Family History Relations & Conditions if any FATHER, , Age 81. FH: prostate cancer MOTHER (smoker). , Age 77; Cause: COPD (chronic obstructive pulmonary disease). Psychosocial History Who Do You Live With? spouse, child Services at Home: None Primary Language: Norwegian Living Will? no Power of Rattan Worker/HCP? no Functional Ability ADLs Independent: dressing, eating, toileting, bathing. Ambulation: independent, cane IADLs Independent: shopping, housework, finances, food prep, telephone, transportation , medication admin. Review of Systems Review of Systems Constitutional: Reports: no symptoms. EENTM: Reports: no symptoms. Cardiovascular: Reports: no symptoms. Respiratory: Reports: no symptoms. GI: Reports: no symptoms. Genitourinary: Reports: no symptoms. Musculoskeletal: Reports: no symptoms. Skin: Reports: see HPI. Neurological/Psychological: Reports: no symptoms. Hematologic/Endocrine: Reports: no symptoms. Immunologic/Allergic: Reports: no symptoms. All Other Systems: Reviewed and Negative Exam & Diagnostic Data Last 24 Hrs of Vital Signs/I&O Vital Signs Date Time Temp Pulse Resp B/P B/P Pulse O2 O2 Flow FiO2 Mean Ox Delivery Rate 12/18 1617 97.8 52 18 109/58 99 Room Air 12/18 1452 Room Air 12/18 1356 98.4 54 18 97/60 93 Room Air Intake & Output 12/18 1600 12/18 0800 12/18 0000 Intake Total Output Total Balance Patient 72.575 kg Weight Weight Estimated Measurement Method Physical Exam General Appearance Alert, Oriented X3, Cooperative, No Acute Distress Cardiovascular Regular Rate, Normal S1, Normal S2 Lungs Clear to Auscultation Abdomen Normal Bowel Sounds, Soft, No Tenderness Extremities R 2nd toe with erosion and surrounding erythema, no drainage. R leg swollen and red as well. Last 24 Hrs of Labs/Antwan: Laboratory Tests 12/18/17 1725: Lactic Acid 1.9, ESR Westergren Pending 12/18/17 1440: Anion Gap 12, Estimated GFR > 60, BUN/Creatinine Ratio 17.8, Glucose 54 L, Lactic Acid 2.7 H, Calcium 8.7, Total Bilirubin 0.4, AST 24, ALT 28, Alkaline Phosphatase 103, Troponin I 0.03, C-Reactive Prot, Quant 2.4 H, Total Protein 6.1 L, Albumin 3.6, Globulin 2.5, Albumin/Globulin Ratio 1.4, D-Dimer High Sensitivty < 200, CBC w Diff NO MAN DIFF REQ, RBC 2.68 L, MCV 107.9 H, MCH 36.2 H, MCHC 33.5, RDW 18.5 H, MPV 7.2 L, Gran % 60.1, Lymphocytes % 25.1, Monocytes % 12.8 H, Eosinophils % 1.8, Basophils % 0.2, Absolute Granulocytes 2.5, Absolute Lymphocytes 1.1 L, Absolute Monocytes 0.5, Absolute Eosinophils 0.1, Absolute Basophils 0 Microbiology 12/18 1738 BLOOD: Blood Culture - RECD 12/18 171 BLOOD: Blood Culture - RECD Assessment/Plan Assessment: Mr. Vyas is 72-year-old male with past medical history of coronary artery disease, hypertension, lipidemia, GERD, alcohol abuse, prostate cancer, thyroid cancer, and rheumatoid arthritis who presents with concerns of a right toe infection. On presentation, vital signs were T 98.4, HR 54, RR 18, BP 97/60, saturating 93% room air. Laboratories significant for white blood cell count 4.2, hemoglobin 9.7, MCV 107.9, sodium 135, negative LFTs, negative troponin. Right lower extremity ultrasound was negative for DVT. He will be admitted to general medicine and treated for the following problems: 1. Right lower extremity/toe cellulitis 2. Macrocytic anemia #Right lower extremity/toe cellulitis: Unclear whether it is actually infected though there is some erythema. He is afebrile without leukocytosis. Lactic acidosis has resolved, CRP mildly elevated. -IV ampicillin/sulbactam -Wound care/pod consult -XRY R foot -culture if febrile #Macrocytic anemia: Chronic. -Continue to monitor DVT prophylaxis with enoxaparin Heart healthy diet Full code As Ranked By This Provider Problem List: 1. Cellulitis of toe Core Measures/Misc (01/10) Acute Coronary Syndrome ACS Diagnosis: No Congestive Heart Failure Congestive Heart Failure Diagnosis No Cerebrovascular Accident CVA/TIA Diagnosis: No VTE (View Protocol) VTE Risk Factors Age>40 No Mechanical VTE Prophylaxis d/t N/A MechProphylax Ordered No VTE Pharm Prophylaxis d/t NA PharmProphylax ordered Sepsis (View protocol) Sepsis Present: No If YES complete Sepsis Event Note If YES complete Sepsis Event Note Mando Curry MD 12/19/17 1681: General Information and HPI Allergies/Medications Home Med list Aspirin (Ecotrin*) 81 MG TABLET.DR 1 TAB PO DAILY Heart health (Reported) Atorvastatin Calcium (Lipitor) 80 MG TABLET 1 TAB PO DAILY hld (Reported) Bupropion HCl (Wellbutrin XL) 300 MG TAB.ER.24H 1 TAB PO DAILY MENTAL HEALTH (Reported) Duloxetine Hydrochloride (Cymbalta) 30 MG CAPSULE.DR 1 CAP PO DAILY nerve pain (Reported) Ferrous Sulfate 325 MG (65 MG IRON) TABLET 1 TAB PO BID SUPPLEMENT (Reported) Folic Acid 1 MG TABLET 1 MG PO DAILY Vitamin Gabapentin 600 MG TABLET 1 TAB PO Q6H PRN NERVE PAIN (Reported) Hydroxychloroquine Sulfate 200 MG TABLET 1 TAB PO BID Rheumatoid Arthritis ( Reported) Metoprolol Tartrate 25 MG TABLET 1 TAB PO BID blood pressure/CAD Morphine Sulfate (Morphine Sulfate ER) 15 MG TABLET.ER 1 TAB PO BID PAIN ( Reported) Oxycodone HCl 10 MG TABLET 1 TAB PO 4XDAILY PRN PAIN (Reported) Pantoprazole Sodium (Unknown Strength) TABLET.DR (Unknown Dose) PO DAILY GI ( Reported) Prednisone 5 MG TABLET 2 TAB PO DAILY RA (Reported) Sertraline HCl (Zoloft) 100 MG TABLET 2 TAB PO DAILY MENTAL HEALTH (Reported) Sulfasalazine 500 MG TABLET 1 TAB PO DAILY RA (Reported) Zolpidem Tartrate (Ambien) 5 MG TABLET 1 TAB PO QPMP PRN INSOMNIA (Reported) Core Measures/Misc (01/10) Sepsis (View protocol) If YES complete Sepsis Event Note If YES complete Sepsis Event Note Attending MD Review Statement Attending Statement Attending MD Statement: examined this patient, discuss w/resident/PA/PAPERBACK MACHINE OPERATOR, agreed w/resident/PA/PAPERBACK MACHINE OPERATOR Attending Assessment/Plan: 72 year-old gentleman with hx of PVD and recent right toe amputation for osteomyelitis, presents with warmth and pain and an open wound to the amputated site of the right middle toe (in the approximate area of the recent amputation). BP in ER initially 97 systolic; other concerning findings are a mild lactic acidosis (improved with IV hydration on repeat), metabolic acidosis, hypoglycemia and slight leukopenia. The wound itself on the toe doesn't have significant drainage or surrounding erythema, and seems altogether unrelated to the clear anterior cellulitis involving the more proximal leg. Although d-dimer was negative, the warmth, pain and erythema involving the distal portion of the right leg prompted a Doppler which was negative. Blood cultures were drawn, and IV Unasyn was given in the ER with the impression based on exam that this represented a distal superficial cellulitis as opposed to a recurrence of his osteomyelitis. Ordered a chest xray for vague exertional dyspnea symptoms, but this seems rather chronic. ESR/CRP are pending. Favor superficial cellulitis over recurrence of chronic osteomyelitis at this time. Admit to inpatient for treatment of this with Unasyn, monitor for alcohol withdrawal via CIWA scales, light hydration, pain control, and follow up of imaging results. Pending above decisions about need for MRI can be informed. Podiatry consultation for perhaps a physical barrier to give some berth between the toes would seem likely to help Mando Curry MD
[2017-12-18] MEDS ORDERED: MORPHINE SULFAT15 M3 PO (18:42)
[2017-12-18] MEDS ORDERED: SULFASALAZINE500 M2 PO (18:44)
[2017-12-18] MEDS ORDERED: PANTOPRAZOLE SO40 M1 PO (18:46)
--- NOTE | 2017-12-18 19:59 | RADIOLOGY REPORT ---
EXAMINATION: XR CHEST CLINICAL INFORMATION: Dyspnea cellulitis COMPARISON: June 2017 TECHNIQUE: 2 views of the chest were obtained. FINDINGS: Cardiac silhouette is prominent. Mild vascular congestion without hanna failure. Blunting of the LEFT costophrenic angle suggesting a small effusion. Retrocardiac opacity with air-fluid level probably hernia. Sternotomy wires from prior thoracotomy are stable. Right central line catheter has been removed. There is no pneumothorax. IMPRESSION: Mild vascular congestion, small pleural effusion, otherwise no change.
--- NOTE | 2017-12-18 20:00 | RADIOLOGY REPORT ---
EXAMINATION: XR FOOT, RIGHT CLINICAL INFORMATION: Right foot swelling and redness COMPARISON: 07/17/2017 TECHNIQUE: AP, lateral, and oblique views of the right foot. FINDINGS: Post surgical changes at the distal aspect of the 2nd metatarsal and 3rd PIP joint. Marked hallux valgus. No acute osseous abnormality. IMPRESSION: No evidence of osteomyelitis. No significant change.
[2017-12-18 20:55] VITALS: BP 118/60
[2017-12-18 21:22] VITALS: BP 118/60
[2017-12-19 06:24] VITALS: BP 90/46
--- NOTE | 2017-12-19 07:55 | PN- Housestaff ---
Franklin Reyes 12/19/17 0755: Subjective Follow-up For: Right toe infection Subjective: Patient seen and examined at bedside. He was complaining of decreased in left ear, discharge from left ear. He denies fever, chills, constipation, diarrhea, abdominal pain, palpitation, chest pain, burning micturition Review of Systems Constitutional: Reports: see HPI. Objective Last 24 Hrs of Vital Signs/I&O Vital Signs Date Time Temp Pulse Resp B/P B/P Pulse O2 O2 Flow FiO2 Mean Ox Delivery Rate 12/19 1501 98.3 71 18 116/58 95 12/19 1056 97.4 67 18 102/56 94 Room Air 12/19 0800 98/50 12/19 0800 70 98/56 12/19 0800 96 Room Air 12/19 0624 98.3 69 20 90/46 92 12/18 2356 60 112/52 12/18 2122 97.9 71 22 118/60 94 Room Air 12/18 2055 97.9 71 22 118/60 94 Room Air 12/18 2040 84 18 110/70 97 Room Air 12/18 1917 98.1 64 18 103/64 98 Room Air Intake & Output 12/19 1600 12/19 0800 12/19 0000 Intake Total 799 189 9351 Output Total 400 400 Balance 059 49 4556 Intake, IV 200 1100 Intake, Oral 800 240 340 Output, Urine 400 400 Patient 165 lb Weight Weight Reported by Patient Measurement Method Physical Exam General Appearance: Alert, Oriented X3, Cooperative, No Acute Distress Assessment/Plan Assessment: 72-year-old man with past medical history of peripheral vascular disease(with right big toe amputation) coronary artery disease, hyperlipidemia, GERD, hypertension, alcohol abuse, prostate cancer, thyroid cancer, rheumatoid arthritis presented to emergency with a chief complaint of right lower extremity infection. Problems list: *Right lower extremity/big toe stump cellulitis *Microcytic anemia *Alcohol dependency *Past medical history of hypertension, peripheral vascular disease, hyperlipidemia *Rheumatoid arthritis Plan: -*Right lower extremity/big toe stump cellulitis: -There is redness at right lower extremity up to the knee -There is also redness of the amputated big toe stump as well as the next toe -The right lower extremity are warm -There is no pus discharge -Bandage applied -Started on antibiotic Unasyn 300 mg every 6 hours *Microcytic anemia: -MCV is 108 -Hemoglobin is 8.9 -Folic acid continued *Alcohol dependency; CIWA 0 *Hypertension/hyperlipidemia/coronary artery disease: Medication is continued Rheumatoid arthritis: Medication discontinued *Will followed as outpatient basis for 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 Anemia 2. Symptomatic anemia 3. Chronic anemia 4. Cellulitis 5. Alcohol abuse Pain Ratin Pain Location: Right lower extremity Pain Goal: Remain pain free Pain Plan: Pain management pathway Tomorrow's Labs & Rationales: No labs Manish Keene MDbettieluis 12/19/17 1328: Attending MD Review Statement Attending Statement Attending MD Statement: examined this patient, discuss w/resident/PA/FOUNTAIN WORKER, agreed w/resident/PA/FOUNTAIN WORKER, reviewed EMR data (avail), discussed with nursing, amended to note Attending Assessment/Plan: Patient resting comfortably and not in acute distress. Afebrile. Hemodynamically stable. Denies any pain. On examination the area of erythema marked on his right lower extremity appears to have improved. He has what appears to be superficial ulceration on the medial aspect of the left 2. ESR is not significantly elevated making osteomyelitis less likely an etiology at present. Would recommend continuation of IV Unasyn for cellulitis. Wound consult should be obtained for wound care recommendations. Patient complains of discharge from the left ear. On examination he has a small ulceration on the left tragus. No discharge noted. Incidentally noted on the right neck just below the lesion. Patient reports that it has been pruritic is unclear what disease. He does not have any significant erythema. There is no discharge. I recommend that patient should follow-up with a supervisory examiner as an outpatient for evaluation of this skin lesion. If the discharge from the left ear persists particularly with his antibiotic therapy he should be evaluated by the ENT service as an outpatient as well.
[2017-12-19 08:00] VITALS: BP 98/50; BP 98/56
[2017-12-19 08:38] LABS: ABSOLUTE BASOPHIL COUNT 0 /CUMM (0.0-0.2); ABSOLUTE EOSINOPHIL COUNT 0 /CUMM (0.0-0.7); ABSOLUTE LYMPH COUNT 0.6 /CUMM (1.2-3.4); ABSOLUTE MONOCYTE COUNT 0.6 /CUMM (0.10-0.60); BASOPHIL % 0.3 % (0.0-2.0); EOSINOPHIL % 1.1 % (0-5); GRANULOCYTE % 61.4 % (42.2-75.2); HEMATOCRIT 26.6 % (42-52); MEAN CORPUSCULAR HGB 36.2 PG (27.0-31.0); MEAN CORPUSCULAR HGB CONC 33.3 G/DL (33.0-37.0); MEAN CORPUSCULAR VOLUME 108.9 FL (80.0-94.0); MEAN PLATELET VOLUME 7.5 FL (7.4-10.4); PLATELET COUNT 156 /CUMM (130-400); RED BLOOD CELL CT 2.44 /CUMM (4.70-6.10); WHITE BLOOD CELL COUNT 3.3 /CUMM (4.8-10.8)
[2017-12-19 10:56] VITALS: BP 102/56
[2017-12-19 15:01] VITALS: BP 116/58
[2017-12-19 18:39] VITALS: BP 115/62
[2017-12-19 21:23] VITALS: BP 133/73
[2017-12-20 02:07] VITALS: BP 132/64
[2017-12-20 06:29] VITALS: BP 138/78
--- NOTE | 2017-12-20 07:10 | PN- Housestaff ---
Franklin Reyes 12/20/17 0710: Subjective Follow-up For: Right lower extremity cellulitis, wound of the right foot third toe Subjective: Patient seen and examined at bedside. He is complaining of pain in the right lower extremity. He want to increase his pain medication. 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 He said he had a great night sleep because because he used to take night sleeping full. He also complaining of shortness of breath. He denies chest pain, palpitation, abdominal pain, diarrhea, constipation, burning micturition, fever, chills. Review of Systems Constitutional: Reports: see HPI. Objective Last 24 Hrs of Vital Signs/I&O Vital Signs Date Time Temp Pulse Resp B/P B/P Pulse O2 O2 Flow FiO2 Mean Ox Delivery Rate 12/20 1421 98.1 79 18 105/82 94 12/20 0800 96 Room Air 12/20 0629 98.0 69 18 138/78 95 12/20 0207 97.5 77 20 132/64 93 12/19 2123 98.3 69 17 133/73 96 Room Air 12/19 1839 98.1 64 18 115/62 98 Room Air 12/19 1501 98.3 71 18 116/58 95 Intake & Output 12/20 1600 12/20 0800 12/20 0000 Intake Total 320 880 Output Total 400 Balance -400 320 880 Intake, IV 200 480 Intake, Oral 120 400 Output, Urine 400 Physical Exam General Appearance: Alert, Oriented X3, Cooperative, No Acute Distress Assessment/Plan Assessment: 72-year-old man with past medical history of peripheral vascular disease(with right big toe amputation) coronary artery disease, hyperlipidemia, GERD, hypertension, alcohol abuse, prostate cancer, thyroid cancer, rheumatoid arthritis presented to emergency with a chief complaint of right lower extremity infection. Problems list: *Right lower extremity third toe wound *Right lower extremity cellulitis *Microcytic anemia *Alcohol dependency *Past medical history of hypertension, peripheral vascular disease, hyperlipidemia *Rheumatoid arthritis Plan: -*Right lower extremity cellulitis/third toe wound: -There is redness at right lower extremity up to the knee -There is also shallow wound in the right lower extremity third toe, -The right lower extremity are warm and red, the erythema subsided compared to yesterday, *He is on Unasyn 3000 mg every 6 -There is no pus discharge -Bandage applied *Discussed with Dr. Downs for wound care he recommend to discuss with podiatry. *MRI of the right lower extremity rule out osteomyelitis. 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 Anemia 2. Cellulitis of right lower extremity 3. Alcohol withdrawal Pain Ratin Pain Location: Right lower external Pain Goal: Remain pain free Pain Plan: Pain management pathway Tomorrow's Labs & Rationales: No labs Leilani Castillo 12/20/17 1141: Attending MD Review Statement Attending Statement Attending MD Statement: examined this patient, discuss w/resident/PA/TRUCK TRAILER MECHANIC, agreed w/resident/PA/TRUCK TRAILER MECHANIC, discussed with family, reviewed EMR data (avail), discussed with nursing, discussed with case mgmt, reviewed images, amended to note Attending Assessment/Plan: Patient resting comfortably and not in acute distress. Afebrile. Hemodynamically stable. Denies any pain. On examination the area of erythema marked on his right lower extremity appears to have improved. Would recommend continuation of IV Unasyn for cellulitis of right lower extremity. He c/o pain and mild tenderness in his toe which was partially amputated 2/2 history of osteomyelitis. His inital xray of foot is negative. Consider MRI of foot to rule out ostemomyeltiis. Anticipate discharge as clinically improves.
--- NOTE | 2017-12-20 13:42 | MRI REPORT ---
EXAMINATION: MR FOOT WITHOUT CONTRAST, RIGHT CLINICAL INFORMATION: Evaluate for osteomyelitis, particularly the 3rd toe. COMPARISON: Radiographs 12/18/2017. TECHNIQUE: MRI without contrast was performed on the right forefoot. FINDINGS: Postsurgical changes with amputation at the distal aspect of the 2nd metatarsal, and the 3rd PIP joint. There is mild marrow edema involving the mid and distal aspect of the 3rd proximal phalanx. There is no significant T1 fatty marrow replacement to indicate osteomyelitis and, therefore this is most likely reactive. Marked hallux valgus and hallux sesamoid osteoarthritis. Marked osteoarthritis of the 2nd TMT joint and [id number] degenerative changes of the 3rd TMT joint and the junction of the navicular with the middle and lateral cuneiforms. Diffuse subcutaneous edema. No focal fluid collection. IMPRESSION: No definite evidence of osteomyelitis.
[2017-12-20 14:21] VITALS: BP 105/82
[2017-12-20 20:00] VITALS: BP 105/82
[2017-12-20 22:00] VITALS: BP 118/70
[2017-12-21 06:35] VITALS: BP 102/60
--- NOTE | 2017-12-21 07:07 | PN- Housestaff ---
Franklin Reyes 12/21/17 0707: Subjective Follow-up For: Right lower extremity cellulitis, Right lower extremity third toe wound Subjective: Patient seen and examined at bedside. He was complaining of mild pain. He said he sleep last night late. He denies fever, chills, chest pain, palpitation, abdominal pain, diarrhea, burning micturition. Review of Systems Constitutional: Reports: see HPI. Objective Last 24 Hrs of Vital Signs/I&O Vital Signs Date Time Temp Pulse Resp B/P B/P Pulse O2 O2 Flow FiO2 Mean Ox Delivery Rate 12/21 0635 97.5 78 20 102/60 92 Room Air 12/20 2200 98.4 81 20 118/70 12/20 2200 98.4 81 20 118/70 95 12/20 2000 98.4 81 18 105/82 Intake & Output 12/21 1600 12/21 0800 12/21 0000 Intake Total 840 840 Output Total 300 Balance 840 540 Intake, IV 120 240 Intake, Oral 720 600 Number 0 0 Bowel Movements Output, Urine 300 Physical Exam General Appearance: Alert, Oriented X3, Cooperative, No Acute Distress Assessment/Plan Assessment: 72-year-old man with past medical history of peripheral vascular disease(with right big toe amputation) coronary artery disease, hyperlipidemia, GERD, hypertension, alcohol abuse, prostate cancer, thyroid cancer, rheumatoid arthritis presented to emergency with a chief complaint of right lower extremity infection. Problems list: *Right lower extremity third toe wound *Right lower extremity cellulitis *Microcytic anemia *Alcohol dependency *Past medical history of hypertension, peripheral vascular disease, hyperlipidemia *Rheumatoid arthritis Plan: Right lower extremity cellulitis/third toe wound: -Redness in the right lower extremity improved compared to previous studies -There is also shallow wound in the right lower extremity third toe, *He is on Unasyn 3000 mg every 6 -There is no pus discharge -Bandage applied *Discussed with Dr. Downs for wound care he recommend to discuss with podiatry. *MRI of the right lower extremity rule out osteomyelitis. *The wound in 3rd toe is due to friction with big toe due to arthritis hallux valgus deformity in the right big toe *Will continue antibiotic and will discuss with my attending for new podiatry recommeendation *Patient will be discharged home today on Augmentin at 875 mg twice daily for 7 days *Microcytic anemia: -MCV is 108 -Hemoglobin is 8.9 -Folic acid continued *Alcohol dependency; CIWA 0 *Hypertension/hyperlipidemia/coronary artery disease: Medication is continued Rheumatoid arthritis: Medication continued *Patient report to Dr. 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 DVT prophylaxis with enoxaparin Heart healthy diet Full code Problem List: 1. Anemia 2. Chronic anemia 3. Cellulitis 4. Alcohol abuse Pain Ratin Pain Location: Pain and right lower extremity Pain Goal: Remain pain free Pain Plan: Pain management pathway Tomorrow's Labs & Rationales: No labs Leilani Castillo 12/21/17 1116: Attending MD Review Statement Attending Statement Attending MD Statement: examined this patient, discuss w/resident/PA/ASSISTANT EDITOR, agreed w/resident/PA/ASSISTANT EDITOR, discussed with family, reviewed EMR data (avail), discussed with nursing, discussed with case mgmt, reviewed images, amended to note Attending Assessment/Plan: Patient resting comfortably and not in acute distress. Afebrile. Hemodynamically stable. Denies any pain. On examination the area of erythema marked on his right lower extremity appears to have improved. Transiiton of iv abx to PO abx at dsicharge for cellulitis of right lower extremity. MRI negative for OM. Neuropathic pain on gabapentin and chronic pain on pain management. Gabapentin + oxycodone. Follow pain management as outpatient. Add hernando Referral to podiatry at discharge. Anticipate discharge soon.
[2017-12-21] MEDS ORDERED: AUGMENTIN 875-1 EACH PO ×2 (10:11→10:17)
--- NOTE | 2017-12-21 10:20 | Patient Discharge Instructions ---
Discharge Instructions General Discharge Information You were seen/treated for: cellulitis of right lower extremity Special Instructions: Follow-up with the pain management doctor in 1 week Follow-up with Dr. Levi in one week Diet Continue normal diet: Yes Activity Full Activity/No Limits: Yes Acute Coronary Syndrome Inclusion Criteria At DC or during hospital stay patient has or had the following: ACS DIAGNOSIS No Discharge Core Measures Meds if any: Prescribed or Continued at Discharge Meds if any: NOT Prescribed or Continued at Discharge Congestive Heart Failure Inclusion Criteria At DC or during hospital stay patient has or had the following: CHF DIAGNOSIS No Discharge Core Measures Meds if any: Prescribed or Continued at Discharge Meds if any: NOT Prescribed or Continued at Discharge Cerebrovascular accident Inclusion Criteria At DC or during hospital stay patient has or had the following: CVA/TIA Diagnosis No Discharge Core Measures Meds if any: Prescribed or Continued at Discharge Meds if any: NOT Prescribed or Continued at Discharge Venous thromboembolism Inclusion Criteria VTE Diagnosis No VTE Type NONE VTE Confirmed by (Test) NONE Discharge Core Measures - Per Current guidelines, there needs to be overlap - treatment for the first 5 days of Warfarin therapy. - If discharged on Warfarin prior to 5 days of - overlap therapy, the patient will need to be - assessed for post discharge needs including - *Post discharge parental anticoagulation - *Warfarin and/or parental anticoagulation education - *Follow up date to check INR post discharge At least 5 days overlap therapy as Inpatient No Meds if any: Prescribed or Continued at Discharge Note: Overlap Therapy is Warfarin and Anticoagulant Meds if any: NOT Prescribed or Continued at Discharge
[2017-12-21] MEDS ORDERED: LYRICA75 M1 PO (11:22)
--- NOTE | 2017-12-21 16:04 | Discharge Summary ---
Hospital Course Course Primary Care Physician: Shania HANSON,Yasmin Benítez Allergies: Coded Allergies: No Known Allergies (03/05/17) Discharge Instructions Medications at Discharge Discharge Medications: Continue taking these medications: Atorvastatin Calcium (Lipitor) 80 MG TABLET 1 Tablet ORAL DAILY Comments: Last Taken: 07/26/17 Time: 9:00 AM Oxycodone HCl (Oxycodone HCl) 10 MG TABLET 1 Tablet ORAL 4XDAILY as needed for PAIN Comments: Last Taken: 07/26/17 Time: 11:45 AM Sertraline HCl (Zoloft) 100 MG TABLET 2 Tablet ORAL DAILY Comments: Last Taken: 07/26/17 Time: 9:00 AM Zolpidem Tartrate (Ambien) 5 MG TABLET 1 Tablet ORAL Every night as needed as needed for INSOMNIA Comments: NOT GIVEN IN HOSPITAL Duloxetine Hydrochloride (Cymbalta) 30 MG CAPSULE.DR 1 Capsule ORAL DAILY Comments: Last Taken: 07/26/17 Time: 9:00 AM Ferrous Sulfate (Ferrous Sulfate) 325 MG (65 MG IRON) TABLET 1 Tablet ORAL TWICE DAILY Comments: Last Taken: 07/26/17 Time: 9:00 AM Hydroxychloroquine Sulfate (Hydroxychloroquine Sulfate) 200 MG TABLET 1 Tablet ORAL TWICE DAILY Comments: Last Taken: 07/26/17 Time: 9:00 AM Prednisone (Prednisone) 5 MG TABLET 2 Tablet ORAL DAILY Comments: Last Taken: 07/26/17 Time: 9:00 AM Folic Acid (Folic Acid) 1 MG TABLET 1 Milligram ORAL DAILY Qty = 30 Comments: Last Taken: 07/26/17 Time: 9:00 AM Bupropion HCl (Wellbutrin XL) 300 MG TAB.ER.24H 1 Tablet ORAL DAILY Comments: Last Taken: 07/26/17 Time: 9:00 AM Gabapentin (Gabapentin) 600 MG TABLET 1 Tablet ORAL Q6H as needed for NERVE PAIN Comments: Last Taken: 07/26/17 Time: 9:00 AM Metoprolol Tartrate (Metoprolol Tartrate) 25 MG TABLET 1 Tablet ORAL TWICE DAILY Qty = 60 Comments: Last Taken: 07/26/17 Time: 9:00 AM Aspirin (Ecotrin*) 81 MG TABLET.DR 1 Tablet ORAL DAILY Morphine Sulfate (Morphine Sulfate ER) 15 MG TABLET.ER 1 Tablet ORAL TWICE DAILY Qty = 60 Sulfasalazine (Sulfasalazine) 500 MG TABLET 1 Tablet ORAL DAILY Days = 0 Pantoprazole Sodium (Pantoprazole Sodium) (Unknown Strength) TABLET.DR Unknown Dose ORAL DAILY Start taking the following new medications: Amoxicillin/Potassium Clav (Augmentin 875-125 Tablet) 875 MG-125 MG TABLET 875 Tablet ORAL TWICE DAILY Qty = 12 No Refills Pregabalin (Lyrica) 75 MG CAPSULE 75 Milligram ORAL DAILY Days = 30 No Refills
== END 2017-12-21 15:08 | DRG 603 ==
LOC: ERH 13:34 → ERHI 19:11 → 2NB 19:11 → ENRESERV 19:51 → 2NB 20:45 → ENPENDDIS 12-21 13:00 → 2NB 12-21 15:08
PROVIDERS: Internal Medicine; Physician Assistant Medical
DX: L03.031 Cellulitis of right toe (principal); E87.2 Acidosis; E78.5 Hyperlipidemia, unspecified; F32.9 Major depressive disorder, single episode, unspecified; D50.9 Iron deficiency anemia, unspecified; L98.499 Non-pressure chronic ulcer of skin of other sites with unspecified severity; E16.2 Hypoglycemia, unspecified; I25.10 Atherosclerotic heart disease of native coronary artery without angina pectoris; I10 Essential (primary) hypertension; K21.9 Gastro-esophageal reflux disease without esophagitis; M06.9 Rheumatoid arthritis, unspecified; Z85.46 Personal history of malignant neoplasm of prostate; Z85.850 Personal history of malignant neoplasm of thyroid; Z95.1 Presence of aortocoronary bypass graft; Z96.643 Presence of artificial hip joint, bilateral; Z89.421 Acquired absence of other right toe(s); D53.9 Nutritional anemia, unspecified; Z79.82 Long term (current) use of aspirin; Z79.52 Long term (current) use of systemic steroids; F10.20 Alcohol dependence, uncomplicated; M20.5X1 Other deformities of toe(s) (acquired), right foot; L97.519 Non-pressure chronic ulcer of other part of right foot with unspecified severity
CPT/HCPCS: 2NBSP; 75657; 36592; 71046; 73630-RT; 82436; 87040; 93005; 93010; 96374; J1650; J3490; J7040; J7512